=== PATIENT | male | born 1955 | race Caucasian/White ===

== ENCOUNTER → 2020-07-10 12:53 | Outpatient (BNVA) | payer MEDICARE, SELFPAY | PROVIDERS: PCP Nurse Practitioner Family; Visit Provider Surgery | DX: Z85.038 Personal history of other malignant neoplasm of large intestine (principal); Z90.49 Acquired absence of other specified parts of digestive tract; Z80.0 Family history of malignant neoplasm of digestive organs | CPT/HCPCS: 99214 ==

== ENCOUNTER → 2020-07-25 08:47 | Outpatient (BNVA) | payer MEDICARE, SELFPAY | PROVIDERS: PCP Nurse Practitioner Family; Referring Provider Nurse Practitioner Family; Visit Provider Psychiatry & Neurology Neurology | DX: G47.33 Obstructive sleep apnea (adult) (pediatric) (principal) | CPT/HCPCS: 99212; Q3014 ==

== ENCOUNTER → 2020-07-28 12:39 | Outpatient (BNVA) | payer MEDICARE, SELFPAY | PROVIDERS: PCP Nurse Practitioner Family; Referring Provider Nurse Practitioner Family; Visit Provider Nurse Practitioner Gerontology | DX: E11.65 Type 2 diabetes mellitus with hyperglycemia (principal); E11.42 Type 2 diabetes mellitus with diabetic polyneuropathy; Z79.4 Long term (current) use of insulin; I10 Essential (primary) hypertension; E78.5 Hyperlipidemia, unspecified | CPT/HCPCS: Q3014 ==

== ENCOUNTER → 2020-10-02 08:53 | Outpatient (BNVA) | payer MEDICARE, SELFPAY | PROVIDERS: PCP Nurse Practitioner Family; Visit Provider Nurse Practitioner Gerontology | DX: E11.42 Type 2 diabetes mellitus with diabetic polyneuropathy (principal); E11.65 Type 2 diabetes mellitus with hyperglycemia; Z79.4 Long term (current) use of insulin; I10 Essential (primary) hypertension; E78.5 Hyperlipidemia, unspecified | CPT/HCPCS: Q3014 ==

== ENCOUNTER → 2020-10-31 11:24 | Outpatient (BNV) | payer MEDICARE, SELFPAY | PROVIDERS: PCP Nurse Practitioner Family; Visit Provider Internal Medicine | DX: C18.2 Malignant neoplasm of ascending colon (principal); C78.7 Secondary malignant neoplasm of liver and intrahepatic bile duct | CPT/HCPCS: 99212; 99213; 99214; 99215; G2211 ==

== ENCOUNTER → 2020-11-29 10:38 | Outpatient (BNVA) | payer MEDICARE, SELFPAY | PROVIDERS: PCP Nurse Practitioner Family; Visit Provider Nurse Practitioner Gerontology | DX: E11.42 Type 2 diabetes mellitus with diabetic polyneuropathy (principal); E11.65 Type 2 diabetes mellitus with hyperglycemia; E78.5 Hyperlipidemia, unspecified; I10 Essential (primary) hypertension; Z79.4 Long term (current) use of insulin; Z71.3 Dietary counseling and surveillance | CPT/HCPCS: 82947; 99212 ==

== ENCOUNTER 2020-12-25 09:49 | Outpatient (REF) | payer MEDICARE, SELFPAY ==
[2020-12-25 11:16] LABS: MANUAL DIFF FLAG NO
[2020-12-25 11:42] LABS: Basophils Absolute Auto 0.1 X10*3/uL (0.0-0.2); Basophils Percent Auto 0.7 % (0-2); Eosinophils Absolute Auto 0.2 X10*3/uL (0.0-0.4); Hematocrit 48.5 % (42-52); Hemoglobin 16.6 g/dl (14.0-18.0); Imm Gran Abs Auto 0.04 X10*3/uL (0.00-0.03); Imm Gran Pct Auto 0.6 % (0.0-0.4); Lymphocytes Absolute Auto 1.3 X10*3/uL (1.2-4.9); Lymphocytes Percent Auto 19.5 % (20-40); Mean Corpuscular HGB Conc 34.2 g/dl (31.0-36.0); Mean Corpuscular Hemoglobin 29.3 pg (27.0-33.0); Mean Corpuscular Volume 85.7 fL (80-98); Mean Platelet Volume 12.5 fL (9.4-12.4); Monocytes Absolute Auto 0.5 X10*3/uL (0.1-1.2); Monocytes Percent Auto 7.2 % (2-11); Neutrophils Absolute Auto 4.6 X10*3/uL (2.0-8.3); Platelet Count 155 X10*3/uL (160-400); Red Blood Count 5.66 X10*6/uL (4.60-5.80); Red Cell Distribution Width 13.1 % (11.0-16.0); White Blood Count 6.7 X10*3/uL (4.8-10.8)
[2020-12-25 11:45] LABS: INTERNATIONAL NORM RATIO 0.9 (0.9-1.1); Prothrombin Time 10.9 SEC (10.8-13.0)
[2020-12-25 11:48] LABS: Partial Thromboplastin Time 32.1 SEC (24.1-38.0)
[2020-12-25 11:54] LABS: Alanine Aminotransferase 32 U/L (0-40); Albumin Level 4.3 g/dL (3.5-5.0); Alkaline Phosphatase 125 U/L (39-117); Anion Gap 17 (12-20); Aspartate Amino Transferase 25 U/L (5-37); Bilirubin Total 0.8 mg/dL (0.0-1.0); Blood Urea Nitrogen 13 mg/dL (9-16); Carbon Dioxide 21 mmol/L (22-29); Chloride 104 mmol/L (96-108); Cholesterol 207 mg/dL; Estimated Glomerular Filt Rate > 60; Glucose Fasting 188 mg/dL (60-99); HDL Cholesterol 45 mg/dL; LDL Cholesterol Calculated 139 mg/dl; Potassium 4.3 mmol/L (3.3-5.1); Sodium 138 mmol/L (135-145); Total Protein 6.7 g/dL (6.5-8.0); Triglycerides 117 mg/dL
[2020-12-25 12:13] LABS: Estimated Average Glucose 212 mg/dL
[2020-12-25 12:15] LABS: TSH reflex Free T4 1.85 uIU/mL (0.32-4.0)
[2020-12-25 12:25] LABS: Creatinine Urine 114.71 mg/dL; Microalbum/Creatinine Ratio Ur 229.2 ug/mg cr
== END 2020-12-25 09:50 | disposition home or self-care (01) ==
LOC: HO.HMGCLDS 09:49
PROVIDERS: Absent Provider Nurse Practitioner Gerontology; PCP Nurse Practitioner Family; Visit Provider Nurse Practitioner Family
DX: Z01.818 Encounter for other preprocedural examination (principal); Z12.5 Encounter for screening for malignant neoplasm of prostate; E11.65 Type 2 diabetes mellitus with hyperglycemia; E11.42 Type 2 diabetes mellitus with diabetic polyneuropathy; Z79.4 Long term (current) use of insulin
CPT/HCPCS: 36415; 80053; 80061; 82043; 83036; 84153; 84443; 85025; 85610; 85730

== ENCOUNTER → 2021-02-01 14:56 | Outpatient (REF) | payer MEDICARE, SELFPAY ==
--- NOTE | 2021-02-01 14:59 | CA_ITS ---
Transthoracic Echocardiogram Patient (Last, First, Middle): Navarro Frost, Gender: Male Date of : 1955 Age: 65 Procedure Date: 02/01/2021 Procedure Type: Transthoracic Echocardiogram Location: OP Height: 177.8 cm Weight: 92.99 kg BSA: 2.11 m2 Heart Rate: bpm BP: 122 / 80 mmHg Power Press Operator: VERONICA Gallo MD: Mauri Dixon [facility] Audit Specialist: Hunter Horne MD Symptoms: R01.1 - Cardiac murmur, unspecified Study Quality: Fair ECG Rhythm: Sinus Conclusions: - 1. Normal LV systolic function with impaired relaxation filling pattern 2. Fibrocalcific aortic valve changes noted with increased gradient suggestive of early mild aortic stenosis 3. Normal RV systolic pressure 4. No pericardial effusion Findings Left Ventricle Normal left ventricular size, thickness, and systolic function. The visually estimated ejection fraction is between 60-65%. Spectral Doppler is indicative of an impaired relaxation filling pattern. E/E prime ratio is between 8 and 15 consistent with indeterminate filling pressures. Right Ventricle Normal right ventricular cavity size and systolic function. Atria The left atrium is normal in size. There is no evidence of interatrial shunt. The right atrium is normal in size. Aortic Valve There is mild calcification of the aortic valve. There is mild thickening of the aortic valve. There is mild aortic valve stenosis. The mean gradient is 11 mmHg. The aortic valve area is 2.17 cm2. There is no aortic valve regurgitation. Mitral Valve There is mild anterior and posterior mitral leaflet thickening. There is mild mitral annular calcification. There is no mitral valve regurgitation. There is no mitral valve stenosis. Pulmonic Valve The pulmonic valve was not well visualized. Tricuspid Valve Likely normal tricuspid valve structure and function. There is trace tricuspid valve regurgitation. The right ventricular systolic pressure is normal. The right ventricular systolic pressure is 13 mmHg. Normal right atrial pressure. There is no evidence of pulmonary hypertension. Great Vessels All visible segments of the aorta are normal in size. The pulmonary artery was not well visualized. Venous The inferior vena cava is normal in size and collapses greater than 50% with inspiration. Pericardium/Pleural There is no evidence of pericardial effusion. Prior Study Comparison No significant change compared to prior study dated: 01/20/2019. Measurements 2D Linear Measurements IVSd: 0.99 0.6-0.9/0.6-1.0 cm LVIDd: 3.56 3.9-5.3/4.2-5.9 cm LVIDd Index: 1.69 2.4-3.2/2.2-3.1 cm/m2 LVIDs: 2.51 2.0-3.6 cm LVPWd: 0.96 0.7-1.1 cm Ao Root: 3.30 2.1-3.5 cm LA Diam: 3.30 2.7-3.8/3.0-4.0 cm LAIDs Index: 1.56 1.5-2.3 cm/m2 LV Mass: 127.72 67-162/88-224 g LV Mass Index: 60.53 43-95/49-115 g/m2 LVOT Diam: 2.10 3.0+(-)1.3 cm 2D Systolic Function EF 4C: 54.50 >55% EF 2C: 70.10 >55% EF BiP: 64.20 >55% Mitral Valve MV Pk E: 1.04 MV PK A: 1.42 MV Decel Time: 333.00 E/A: 0.70 E'Lateral: 6.31 E'Medial: 5.22 E/E' Med: 19.90 E/E' Lat: 16.50 PHT: 98.00 MVA PHT: 2.24 Decel Parker: 3.13 Aortic Valve AoV Pk Thierry: 2.14 AoV Mn Thierry: 1.57 AoV VTI: 0.45 AoV Pk Grad: 18.00 Aov Mn Grad: 11.00 SHAYY Cont.VTI: 2.17 LVOT LVOT Pk Thierry: 1.23 LVOT Mn Thierry: 0.94 LVOT VTI: 0.28 LVOT Pk Grad: 6.00 LVOT Mn Grad: 4.00 LVOT Diam: 2.10 LVOT Area: 3.46 Diastolic Function MV Pk E: 1.04 MV Pk A: 1.42 E/A: 0.70 E'Medial: 5.22 E/E' Med: 19.90 E' Laterial: 6.31 E/E' Lat: 16.50 Tricuspid Valve TR Pk Thierry: 1.62 TR Pk Grad: 10.00 RA Press: 3.00 RVSP: 13.00 Great Vessels Aorta Ao Root-2D: 3.30 2.0-3.7 cm Ao Asc: 3.50 2.1-3.4 cm Ao Arch: 3.40 Updated in Other Vendor System with Status of Final Hunter Horne MD electronically signed on 02/02/2021 3:11:00 PM with status of Final
== END ==
LOC: HO.CARD 14:56
PROVIDERS: Visit Provider Nurse Practitioner Family
DX: R01.1 Cardiac murmur, unspecified (principal); R94.31 Abnormal electrocardiogram [ECG] [EKG]
CPT/HCPCS: 93306

== ENCOUNTER → 2021-03-07 09:55 | Outpatient (BNVA) | payer MEDICARE, SELFPAY | PROVIDERS: PCP Nurse Practitioner Family; Visit Provider Nurse Practitioner Gerontology | DX: E11.65 Type 2 diabetes mellitus with hyperglycemia (principal); E11.42 Type 2 diabetes mellitus with diabetic polyneuropathy; E11.29 Type 2 diabetes mellitus with other diabetic kidney complication; R80.9 Proteinuria, unspecified; I12.9 Hypertensive chronic kidney disease with stage 1 through stage 4 chronic kidney disease, or unspecified chronic kidney disease; N18.9 Chronic kidney disease, unspecified; E78.5 Hyperlipidemia, unspecified; N52.9 Male erectile dysfunction, unspecified; E66.9 Obesity, unspecified; Z79.4 Long term (current) use of insulin | CPT/HCPCS: 82947; Q3014 ==

== ENCOUNTER 2021-04-05 11:14 | Outpatient (REF) | payer MEDICARE, SELFPAY ==
[2021-04-05 14:10] LABS: Alanine Aminotransferase 20 U/L (0-40); Albumin Level 4.2 g/dL (3.5-5.0); Alkaline Phosphatase 128 U/L (39-117); Anion Gap 12 (12-20); Aspartate Amino Transferase 20 U/L (5-37); Bilirubin Direct 0.4 mg/dL (0.0-0.5); Bilirubin Total 1.1 mg/dL (0.0-1.0); Blood Urea Nitrogen 20 mg/dL (9-16); Calcium 9.6 mg/dL (8.4-10.2); Carbon Dioxide 26 mmol/L (22-29); Chloride 106 mmol/L (96-108); Cholesterol 184 mg/dL; Estimated Glomerular Filt Rate > 60; Gamma Glutamyl Transpeptidase 148 U/L (11-51); Glucose Fasting 191 mg/dL (60-99); HDL Cholesterol 38 mg/dL; LDL Cholesterol Calculated 121 mg/dl; Potassium 4.2 mmol/L (3.3-5.1); Sodium 140 mmol/L (135-145); Total Protein 6.7 g/dL (6.5-8.0); Triglycerides 126 mg/dL
[2021-04-05 14:24] LABS: Prostate Specific Antigen Scr 2.26 ng/mL (<0.05-4.0); TSH reflex Free T4 0.75 uIU/mL (0.32-4.0)
[2021-04-06 08:20] LABS: HBS Num1 0.15 mIU/mL (0-7.99); ~Hepatitis B Surface Antibody NONREACTIVE (Nonreactive)
[2021-04-07 06:12] LABS: Rubeola IgG (Measles) >300.00 AU/mL
[2021-04-07 19:16] LABS: TS Negative Control Passed; TS Panel A 0; TS Panel B 0; TS Positive Control Passed; TSpotTB Negative (SeeBelow)
== END 2021-04-05 11:15 | disposition home or self-care (01) ==
LOC: HO.HMGCLDS 11:14
PROVIDERS: PCP Nurse Practitioner Family; Visit Provider Nurse Practitioner Family
DX: Z00.00 Encounter for general adult medical examination without abnormal findings (principal); Z12.5 Encounter for screening for malignant neoplasm of prostate; Z11.1 Encounter for screening for respiratory tuberculosis; Z28.3 Underimmunization status; R74.8 Abnormal levels of other serum enzymes
CPT/HCPCS: 36415; 80053; 80061; 80076; 82248; 82977; 84153; 84443; 86481; 86706; 86735; 86762; 86765; 86787

== ENCOUNTER → 2021-04-18 08:07 | Outpatient (BNVA) | payer MEDICARE, SELFPAY | PROVIDERS: PCP Nurse Practitioner Family; Visit Provider Nurse Practitioner Family | DX: Z12.11 Encounter for screening for malignant neoplasm of colon (principal); K59.01 Slow transit constipation; K21.9 Gastro-esophageal reflux disease without esophagitis; R74.8 Abnormal levels of other serum enzymes | CPT/HCPCS: 99202 ==

== ENCOUNTER 2021-04-20 11:36 | Outpatient (REF) | payer MEDICARE, SELFPAY ==
[2021-04-20 14:06] LABS: Estimated Average Glucose 223 mg/dL; Hemoglobin A1c % 9.4 %
[2021-04-20 14:11] LABS: C Reactive Protein 0.14 mg/dL (< or = 0.50); Lipase 14 U/L (8-78)
[2021-04-20 14:32] LABS: Ferritin 51 ng/mL (20-250)
[2021-04-23 12:16] LABS: Alpha Fetoprotein 0.6 ng/mL (<6.1)
[2021-04-23 20:27] LABS: Ceruloplasmin 27 mg/dL (18-36)
[2021-04-27 11:31] LABS: Smooth Muscle Antibody <20 U (<20)
[2021-04-27 16:02] LABS: Mitochondrial Antibodies NEGATIVE (NEGATIVE)
== END 2021-04-20 11:37 | disposition home or self-care (01) ==
LOC: HO.HMGCLDS 11:36
PROVIDERS: Nurse Practitioner Gerontology; PCP Nurse Practitioner Family; Visit Provider Nurse Practitioner Family
DX: R19.7 Diarrhea, unspecified (principal); R79.89 Other specified abnormal findings of blood chemistry; R74.8 Abnormal levels of other serum enzymes; K58.9 Irritable bowel syndrome, unspecified; E11.65 Type 2 diabetes mellitus with hyperglycemia; Z79.4 Long term (current) use of insulin
CPT/HCPCS: 36415; 82105; 82390; 82728; 83036; 83690; 86140; 86255; 86256

== ENCOUNTER 2021-06-05 09:57 | Outpatient (REF) | payer MEDICARE, SELFPAY ==
--- NOTE | ~2021-06-05 | US_ITS ---
US/US abdomen comp w elastography IMPRESSION: Cholelithiasis without evidence of acute cholecystitis. Fatty infiltration of the liver. Liver elastography: Although measurements appear to rule out compensated advanced chronic liver disease, there is statistical variability of the sampling which decreases accuracy. REFERENCE: Society of Radiologists in Ultrasound Liver Stiffness Thresholds (2020): LIVER STIFFNESS THRESHOLDS: *Liver Stiffness equal or less than 1.3 m/s: High probability of being normal. *Liver Stiffness less than 1.7 m/s: In the absence of other known clinical signs, rules out compensated advanced chronic liver disease. *Liver Stiffness 1.7-2.1 m/s: Suggestive of compensated advanced chronic liver disease but need further test for confirmation. *Liver Stiffness over 2.1 m/s: Rules in compensated advanced chronic liver disease. *Liver Stiffness over 2.4 m/s: Suggestive of clinically significant portal hypertension. QUALITY OF DATA SET: *IQR/Median value equal or less than 0.15 implies a quality data set. *IQR/Median value over 0.15 implies a poor quality data set. SIGNIFICANT CHANGE FROM PRIOR EXAM: Significant change if liver stiffness measurement is 10% or greater from prior exam. OTHER CONSIDERATIONS: The stage of liver fibrosis may be overestimated in the setting of acute hepatitis, liver inflammation, elevated liver function tests, hepatic vascular congestion, obstructive cholestasis, non-fasting state, and infiltrative diseases such as amyloidosis and lymphoma. In some patients with NAFLD, the liver stiffness thresholds for compensated advanced chronic liver disease may be lower. In causes other than viral hepatitis and NAFLD, liver stiffness thresholds are not well established. EXAMINATION: US COMPLETE ABDOMEN WITH LIVER ELASTOGRAPHY CLINICAL INFORMATION: Abnormal blood chemistry. History of colon cancer. COMPARISON: CT scan of November 11, 2019 TECHNIQUE: Real-time imaging of the abdominal viscera. Noninvasive ultrasound liver fibrosis assessment is performed using Torito ElastPQ point quantification shear wave elastography (pSWE) with a C5-2 MHz transducer. Multiple elastography samples are obtained. FINDINGS: PANCREAS: Mostly obscured by overlying bowel gas. Visualized portions unremarkable. ABDOMINAL AORTA: The proximal, middle, and distal aortic segments are normal in caliber. INFERIOR VENA CAVA: Obscured by overlying bowel gas. LIVER: There is diffuse increased echogenicity of the liver consistent with fatty infiltration or hepatocellular disease of other etiology. No focal mass identified and no intrahepatic bile duct dilatation is seen. The right lobe measures 15.4 cm in length. The left lobe measures 8.0 cm in length. Portal flow is hepatopedal Shear wave liver elastography median stiffness is 1.41 m/s (reference: normal median stiffness is 1.3 m/s or less). IQR/median stiffness to assess sampling precision is 0.21 (reference: good quality data set is IQR/median stiffness of 0.15 or less). GALLBLADDER: Cholelithiasis is present without evidence of acute cholecystitis. COMMON BILE DUCT: Normal in caliber measuring 0.3 cm in diameter. RIGHT KIDNEY: Normal. No hydronephrosis. No renal calculi or focal parenchymal lesions. The kidney measures 11.5 cm in maximum dimension. LEFT KIDNEY: Normal. No hydronephrosis. No renal calculi or focal parenchymal lesions. The kidney measures 12.5 cm in maximum dimension. SPLEEN: Normal. The spleen measures 12.3 cm in maximum dimension. FREE FLUID: None.
== END 2021-06-05 09:58 | disposition home or self-care (01) ==
LOC: HO.US 09:57
PROVIDERS: Visit Provider Nurse Practitioner Family
DX: R79.89 Other specified abnormal findings of blood chemistry (principal); E11.42 Type 2 diabetes mellitus with diabetic polyneuropathy; E11.29 Type 2 diabetes mellitus with other diabetic kidney complication; R80.9 Proteinuria, unspecified; I10 Essential (primary) hypertension; E78.5 Hyperlipidemia, unspecified; R74.8 Abnormal levels of other serum enzymes; Z79.4 Long term (current) use of insulin
CPT/HCPCS: 76705; 76981; 82947; 99212

== ENCOUNTER → 2021-06-19 13:42 | Outpatient (BNVA) | payer MEDICARE, SELFPAY | PROVIDERS: Referring Provider Nurse Practitioner Family; Visit Provider Nurse Practitioner Family | DX: K21.9 Gastro-esophageal reflux disease without esophagitis (principal); K59.01 Slow transit constipation; R74.8 Abnormal levels of other serum enzymes | CPT/HCPCS: 99212 ==

== ENCOUNTER → 2021-08-17 13:03 | Outpatient (BNVA) | payer MEDICARE, SELFPAY | PROVIDERS: Referring Provider Nurse Practitioner Family; Visit Provider Nurse Practitioner Family | DX: Z12.11 Encounter for screening for malignant neoplasm of colon (principal); K58.1 Irritable bowel syndrome with constipation; K59.04 Chronic idiopathic constipation; Z85.038 Personal history of other malignant neoplasm of large intestine; R74.8 Abnormal levels of other serum enzymes | CPT/HCPCS: 99212 ==

== ENCOUNTER → 2021-09-21 08:40 | Outpatient (BNVA) | payer MEDICARE, SELFPAY | PROVIDERS: PCP Nurse Practitioner Family; Visit Provider Nurse Practitioner Gerontology | CPT/HCPCS: Q3014 ==

== ENCOUNTER 2021-10-30 08:53 | Outpatient (REF) | payer MEDICARE, SELFPAY ==
[2021-10-30 11:53] LABS: Appearance Urine CLEAR; Color Urine YELLOW; Glucose Urine UA >=1000 MG/DL (NEG); Leukocyte Esterase Urine NEG (NEG); Nitrite Urine NEG (NEG); Urine Blood NEG (NEG); Urine Ketones NEG (NEG); Urine Protein NEG (NEG-TRACE)
[2021-10-30 12:09] LABS: Alanine Aminotransferase 25 U/L (0-40); Albumin Level 4.3 g/dL (3.5-5.0); Alkaline Phosphatase 106 U/L (39-117); Anion Gap 12 (12-20); Aspartate Amino Transferase 23 U/L (5-37); Bilirubin Total 0.9 mg/dL (0.0-1.0); Blood Urea Nitrogen 21 mg/dL (9-16); Calcium 9.1 mg/dL (8.4-10.2); Carbon Dioxide 27 mmol/L (22-29); Chloride 107 mmol/L (96-108); Cholesterol 223 mg/dL; Estimated Glomerular Filt Rate > 60; Glucose Fasting 120 mg/dL (60-99); HDL Cholesterol 42 mg/dL; LDL Cholesterol Calculated 156 mg/dl; Potassium 4.7 mmol/L (3.3-5.1); Sodium 141 mmol/L (135-145); Triglycerides 127 mg/dL
[2021-10-30 12:12] LABS: RBC Urine 0-2 /HPF (0); WBC Urine 0 /HPF (0-4)
[2021-10-30 12:16] LABS: Prostate Specific Antigen Scr 2.35 ng/mL (<0.05-4.0); TSH reflex Free T4 2.26 uIU/mL (0.32-4.0)
[2021-10-30 12:22] LABS: Estimated Average Glucose 200 mg/dL; Hemoglobin A1c % 8.6 %
[2021-11-04 13:27] LABS: Alk.Phos Iso. Macrohepatic 0 % (<=0); Alk.Phos Isoenzymes Bone 44 % (28-66); Alk.Phos Isoenzymes Intest 0 % (1-24); Alk.Phos Isoenzymes Liver 56 % (25-69); Alk.Phos Isoenzymes Placental 0 % (<=0); Alk.Phos Isoenzymes Total 101 U/L (35-144)
== END 2021-10-30 08:54 | disposition home or self-care (01) ==
LOC: HO.HMGCLDS 08:53
PROVIDERS: Absent Provider Nurse Practitioner Gerontology; PCP Nurse Practitioner Family; Visit Provider Nurse Practitioner Family
DX: Z12.5 Encounter for screening for malignant neoplasm of prostate (principal); I10 Essential (primary) hypertension; R74.8 Abnormal levels of other serum enzymes; E11.29 Type 2 diabetes mellitus with other diabetic kidney complication
CPT/HCPCS: 36415; 80053; 80061; 81001; 83036; 84080; 84153; 84443

== ENCOUNTER 2021-12-04 09:13 | Day surgery (SDC) | payer MEDICARE, SELFPAY ==
--- NOTE | 2021-11-09 09:36 | P.CONAN_ITS ---
Documented by User: Glenny Landin NP 11/09/21 09:48 HPI - Anesthesia Eval Consult details Narrative: 66yo M for Colonoscopy PMFSH Active Problems Active Problems: All Active Problems (Updated 11/06/21 @ 09:33 by Leigha Tolbert MD) Skin lesion (Acute) Obstructive sleep apnea (Acute) Physical exam (Acute) Screening PSA (prostate specific antigen) (Acute) Pre-op evaluation (Acute) Murmur (Acute) Abnormal EKG (Acute) Elevated alkaline phosphatase level (Acute) Physical exam (Acute) Screening PSA (prostate specific antigen) (Acute) Restless leg (Acute) Immunizations incomplete (Acute) Screening for tuberculosis (Acute) Elevated alkaline phosphatase level (Acute) Proteinuria (Acute) Type 2 diabetes mellitus with other diabetic kidney complication (Acute) Type 2 diabetes mellitus with hyperglycemia, with long-term current use of insulin (Acute) Type 2 diabetes mellitus with diabetic polyneuropathy (Acute) Hypertension (Acute) Dyslipidemia (Acute) Obesity (BMI 30.0-34.9) (Acute) Family history of pancreatic cancer (Acute) History of colon cancer (Chronic) Neuropathy (Acute) Diabetes mellitus (Acute) Past Medical History Medical History Cataract CKD (chronic kidney disease) stage 2, GFR 60-89 ml/min Colon cancer Diabetes mellitus Dyslipidemia Erectile dysfunction Family history of pancreatic cancer Fuchs' corneal dystrophy History of colon cancer Hypertension Hypertensive nephrosclerosis Neuropathy Obesity (BMI 30.0-34.9) Persistent proteinuria Proteinuria RLS (restless legs syndrome) Type 2 diabetes mellitus with diabetic polyneuropathy Type 2 diabetes mellitus with hyperglycemia, with long-term current use of insulin Type 2 diabetes mellitus with other diabetic kidney complication Xerosis cutis Family History Family History Mother History of pancreatic cancer Father No problems noted. Brother Diabetes Maternal Grandmother Diabetes Surgical History Surgical History History of colon resection (~04/20/19) History of colonoscopy (~03/15/19) Hx of cornea transplant Hx of left cataract extraction Social History Social History Household Members: None Housing: Condominium Are you a primary team primary care physician to a significant other at home: No Do you presently have visiting nurse or other home services: No Alcohol intake: never Patient Tobacco Use Status: Never used Tobacco e-Cigarette/Vaping Use: Never Used Second Hand Smoke Exposure: No Are you DNR?: No Advance Directives: No Advance Directives Information Provided: Yes service: No Current occupational status: retired Meds Allergies Allergy/AdvReac Type Severity Reaction Status Date / Time No Known Allergies Allergy Verified 11/06/21 09:39 [No Known Allergies*] Home Medications Medication Instructions Recorded Confirmed Last Taken Type pramipexole 0.5 mg tablet (Mirapex) 0.5 mg PO BEDTIME 07/10/20 11/06/21 Unknown History blood sugar diagnostic #10 ea 07/28/20 11/06/21 Unknown History aspirin 81 mg tablet,delayed 81 mg PO DAILY 05/01/21 11/06/21 Unknown History release calcium carbonate 600 mg-vitamin 1 tab PO DAILY 05/01/21 11/06/21 Unknown History D3 5 mcg (200 unit) tablet magnesium 500 mg tablet 15 mg PO DAILY 05/01/21 11/06/21 Unknown History multivitamin 1 tab PO DAILY 05/01/21 11/06/21 Unknown History omega-3 fatty acids 1,000 mg PO DAILY 05/01/21 11/06/21 Unknown History omeprazole 20 mg capsule,delayed 20 mg PO NEEDED 06/19/21 11/06/21 Unknown Hi story release blood sugar diagnostic (OneTouch 09/21/21 11/06/21 Unknown History Ultra Test) blood-glucose meter (OneTouch 09/21/21 11/06/21 Unknown History Ultra2 Meter) cinnamon bark 500 mg capsule 500 mg PO DAILY 11/06/21 11/06/21 Unknown History (Cinnamon) pioglitazone 30 mg tablet (Actos) 30 mg PO DAILY 11/06/21 11/06/21 Unknown History Exam Exam Date and Time: November 09, 2021 0936 Pertinent Lab Results Pertinent Lab Results: Laboratory Tests 10/30/21 11/06/21 09:00 10:31 WBC 5.5 Hgb 17.7 Hct 52.7 H Plt Count 138 L Sodium 141 Potassium 4.7 Chloride 107 Carbon Dioxide 27 BUN 21 H Creatinine 1.15 Narrative Narrative: ECHO 01/2021 Conclusions: - 1. Normal LV systolic function with impaired relaxation filling pattern? 2. Fibrocalcific aortic valve changes noted with increased ? ? ? gradient suggestive of early mild aortic stenosis? 3. Normal RV systolic pressure ? 4. No pericardial effusion ?? 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 No changes from previous Assessment and Plan Assessment Anesthesia Assessment: Chart Reviewed Documented by User: Sindhu Valerio MD 12/04/21 10:30 [facility] Past Medical History Medical History Cataract CKD (chronic kidney disease) stage 2, GFR 60-89 ml/min Colon cancer Diabetes mellitus Dyslipidemia Erectile dysfunction Family history of pancreatic cancer Fuchs' corneal dystrophy History of colon cancer Hypertension Hypertensive nephrosclerosis Neuropathy Obesity (BMI 30.0-34.9) Persistent proteinuria Proteinuria RLS (restless legs syndrome) Type 2 diabetes mellitus with diabetic polyneuropathy Type 2 diabetes mellitus with hyperglycemia, with long-term current use of insulin Type 2 diabetes mellitus with other diabetic kidney complication Xerosis cutis Functional capacity: independent ambulation Family History Family History Mother History of pancreatic cancer Father No problems noted. Brother Diabetes Maternal Grandmother Diabetes Family history of problems with anesthesia: No Surgical History Surgical History History of colon resection (~04/20/19) History of colonoscopy (~03/15/19) Hx of cornea transplant Hx of left cataract extraction Social History Social History Household Members: None Housing: [facility] Are you a primary team primary care physician to a significant other at home: No Do you presently have visiting nurse or other home services: No Alcohol intake: never Patient Tobacco Use Status: Never used Tobacco e-Cigarette/Vaping Use: Never Used Second Hand Smoke Exposure: No Are you DNR?: No Advance Directives: No Advance Directives Information Provided: Yes service: No Current occupational status: retired Meds Allergies Allergy/AdvReac Type Severity Reaction Status Date / Time No Known Allergies Allergy Verified 11/06/21 09:39 [No Known Allergies*] Home Medications Medication Instructions Recorded Confirmed Last Taken Type pramipexole 0.5 mg tablet (Mirapex) 0.5 mg PO BEDTIME 07/10/20 11/06/21 Unknown History blood sugar diagnostic #10 ea 07/28/20 11/06/21 Unknown History aspirin 81 mg tablet,delayed 81 mg PO DAILY 05/01/21 11/06/21 Unknown History release calcium carbonate 600 mg-vitamin 1 tab PO DAILY 05/01/21 11/06/21 Unknown History D3 5 mcg (200 unit) tablet magnesium 500 mg tablet 15 mg PO DAILY 05/01/21 11/06/21 Unknown History multivitamin 1 tab PO DAILY 05/01/21 11/06/21 Unknown History omega-3 fatty acids 1,000 mg PO DAILY 05/01/21 11/06/21 Unknown History omeprazole 20 mg capsule,delayed 20 mg PO NEEDED 06/19/21 11/06/21 Unknown History release blood sugar diagnostic (OneTouch 09/21/21 11/06/21 Unknown History Ultra Test) blood-glucose meter (OneTouch 09/21/21 11/06/21 Unknown History Ultra2 Meter) cinnamon bark 500 mg capsule 500 mg PO DAILY 11/06/21 11/06/21 Unknown History (Cinnamon) pioglitazone 30 mg tablet (Actos) 30 mg PO DAILY 11/06/21 11/06/21 Unknown History Exam Airway Mallampati Class: III TM Dist: >3cm Neck ROM: Full Heart: RRR Lungs: CTA Assessment and Plan Final Anesthetic Review Family History of Problems with Anesthesia: No ASA Class: III Final Preanesthetic Review: No Changes in Pt Med Stat, Meds/Allgs Chart Reviewed, Consent Obtained/Reviewed and Anes Risks/Benef Reviewed Patient Risk: Intermediate Procedure Risk: Low Anesthetic Plan Anesthetic Plan: MAC: Disposition: Standard PACU
[2021-11-29 16:54] VITALS: BMI 29.4
[2021-12-04 09:33] VITALS: BP 127/105; PULSE 81; RESP 17; TEMP 36.1; O2SAT 96
[2021-12-04 09:39] LABS: Glucose, Whole Blood 80 mg/dL (60-115)
[2021-12-04] MEDS: Lactated Ringers 1,000 ML 100 ML IVCONT (09:54)
--- NOTE | 2021-12-04 10:01 | MHC.SHP ---
Pre-Procedural Eval Section A Date of Service: 12/04/21 Section B Chief Complaint: screening Details of Present Illness: hx of colon cancer, Relevant Family History (Specify if Yes): No Relevant Social History: None Present Medications: see Short Stay Collaborative assessment Medical History: Significant History (Cataract CKD (chronic kidney disease) stage 2, GFR 60-89 ml/min Colon cancer Diabetes mellitus Dyslipidemia Erectile dysfunction Family history of pancreatic cancer Fuchs' corneal dystrophy History of colon cancer Hypertension Hypertensive nephrosclerosis Neuropathy Obesity (BMI 30.0-34.9) Persisten) History of Previous Operations: Relevant previous surgery/procedure and date(s) (History of colon resection (~04/20/19) History of colonoscopy (~03/15/19) Hx of cornea transplant Hx of left cataract extraction) Allergies: Allergies Allergy/AdvReac Type Severity Reaction Status Date / Time No Known Allergies Allergy Verified 11/06/21 09:39 [No Known Allergies*] Review of Systems Sugical H&P ROS: Negative: Constitution, Cardiovascular, Respiratory, Neurological, Psychiatric, Hem-Onc, Allergic/Immunologic, Gastrointestinal, Genitourinary, Musculoskeletal, Integumentary, Endocrine and Eyes/Ears/Nose/Throat Exam Surgical H&P Exam: Normal: HEENT, Normal: Heart, Normal: Lungs, Normal: Extremities, Normal: Abdomen, Normal: Skin and Normal: Neurological Plan Diagnosis/Plan: Unchanged I have reviewed the history and physical and performed a pertinent physical examination on my patient. No changes have occurred unless specified.
--- NOTE | 2021-12-04 10:04 | P.BOP_ITS ---
Brief Operative Note Date of Service: 12/04/21 Pre-op diagnosis: hx of colon cancer Post-op diagnosis: same Procedure: see op note Surgeon: Ronen Kaiser MD Anesthesia: MAC Was an Joint Cutter Machine used for this Procedure?: No Estimated blood loss (mL): 0 Condition: stable Disposition: PACU
--- NOTE | 2021-12-04 10:04 | P.OP_ITS ---
Operative Note Operative Note Date of Service: 12/04/21 Narrative: Operative Information Procedure Description: Colonoscopy COLONOSCOPY Instrument: Olympus variable stiffness adult scope 190L Colonoscopy Monitoring: Vital signs and clinical assessment, continuous EKG monitoring, Pulse oximetry, Carbon Dioxide monitoring and blood pressure monitoring were done throughout the procedure. Procedure: The patient was placed in the left lateral decubitis position and pre-procedure medications were administered. After a digital rectal examination of the ano-rectum, the video colonoscope was inserted into the rectum and advanced through the colon to the cecum/TI. The colonoscope was slowly withdrawn in a retrograde panoramic fashion and the colon mucosa was carefully examined including a retroflexed view of the rectum. Findings and interventions are described below. Procedure Difficulty: [] Findings: Anasotmosis not reached due to poor prep Transverse Colon -normal Descending Colon:normal Sigmoid Colon: x 3 sessile polyps noted, two were removed with cold snare and were 8-10 mm. Another one was removed with forceps and was 5-6 mm Rectum: Retroflexion with small internal hemorrhoids, grade I, 10 mm sessile polyp removed with cold snare Anorectum - normal Colon preparation: [place] Bowel Preparation Scale Right colon; n/a Transverse colon: 0 Left colon; 1 (0 = Unprepared colon segment with mucosa not seen due to solid stool that cannot be cleared. 1 = Portion of mucosa of the colon segment seen, but other areas of the colon segment not well seen due to staining, residual stool and/or opaque liquid. 2 = Minor amount of residual staining, small fragments of stool and/or opaque liquid, but mucosa of colon segment seen well. 3 = Entire mucosa of colon segment seen well with no residual staining, small fragments of stool or opaque liquid) Impression and Post Procedure Diagnosis: incomplete colonoscopy internal hemorrhoids polyps Plan: High fiber diet leaflet Avoid straining at stool, epsom salts and sitz bath, anusol supps or cream Repeat Colonoscopy in 2-3 months, review prep instructions for next time Above findings were reviewed with the patient and relevant handouts were provided if indicated.
[2021-12-04 10:46] VITALS: BP 97/36; PULSE 62; RESP 16; TEMP 36.3
[2021-12-04 10:59] VITALS: BP 97/46; PULSE 65; RESP 16; TEMP 36.5
[2021-12-04 11:08] VITALS: BP 104/56; PULSE 63; RESP 16
--- NOTE | 2021-12-04 15:12 | HO.POSTANES ---
Post Anesthesia Evaluation Post Anesthesia Evaluation Vital Signs: Vital Signs Temp Pulse Resp BP Pulse Ox 12/04/21 11:08 63 16 104/56 L 12/04/21 10:59 97.7 F 65 16 97/46 L 12/04/21 10:46 97.4 F 62 16 97/36 L 12/04/21 09:33 97 F 81 17 127/105 H 96 Anesthesia: Monitored Mental Status: Awake Pain Control: Satisfactory Nausea/Vomiting: None Hydration: Adequate Anesthesia-Related Issues: No Anes. Related Issues
== END 2021-12-04 13:00 | disposition home or self-care (01) ==
PROVIDERS: PCP Nurse Practitioner Family; Visit Provider Internal Medicine Gastroenterology
PROC: 0DJD8ZZ Inspection of Lower Intestinal Tract, Via Natural or Artificial Opening Endoscopic (ICD-10-PCS; CPT 45378; principal; 2021-12-04 10:20)
DX: Z12.11 Encounter for screening for malignant neoplasm of colon (principal); Z85.038 Personal history of other malignant neoplasm of large intestine; Z98.0 Intestinal bypass and anastomosis status; Z90.49 Acquired absence of other specified parts of digestive tract; K63.5 Polyp of colon; K62.1 Rectal polyp; K64.0 First degree hemorrhoids; E11.65 Type 2 diabetes mellitus with hyperglycemia; E11.42 Type 2 diabetes mellitus with diabetic polyneuropathy; E11.22 Type 2 diabetes mellitus with diabetic chronic kidney disease; I12.9 Hypertensive chronic kidney disease with stage 1 through stage 4 chronic kidney disease, or unspecified chronic kidney disease; N18.2 Chronic kidney disease, stage 2 (mild); Z79.4 Long term (current) use of insulin; G47.33 Obstructive sleep apnea (adult) (pediatric); Z99.89 Dependence on other enabling machines and devices; Z79.82 Long term (current) use of aspirin; Z79.899 Other long term (current) drug therapy
CPT/HCPCS: 45385; 45380; 82947; 88305

== ENCOUNTER → 2021-12-18 12:12 | Outpatient (BNVA) | payer MEDICARE, SELFPAY | PROVIDERS: PCP Nurse Practitioner Family; Referring Provider Nurse Practitioner Family; Visit Provider Nurse Practitioner Family | DX: Z12.11 Encounter for screening for malignant neoplasm of colon (principal); Z85.038 Personal history of other malignant neoplasm of large intestine | CPT/HCPCS: 99212 ==

== ENCOUNTER → 2021-12-27 13:34 | Outpatient (BNVA) | payer MEDICARE, SELFPAY | PROVIDERS: PCP Nurse Practitioner Family; Visit Provider Nurse Practitioner Gerontology | DX: E11.42 Type 2 diabetes mellitus with diabetic polyneuropathy (principal); E11.65 Type 2 diabetes mellitus with hyperglycemia; E11.29 Type 2 diabetes mellitus with other diabetic kidney complication; E78.5 Hyperlipidemia, unspecified; I10 Essential (primary) hypertension; R80.9 Proteinuria, unspecified; Z79.4 Long term (current) use of insulin | CPT/HCPCS: 82947; 99212 ==

== ENCOUNTER 2022-01-20 09:44 | Inpatient (IN) | payer MEDICARE, SELFPAY ==
[2022-01-20] VITALS (7 sets, daily range): BP systolic 135–211; BP diastolic 64–100; PULSE 63–77; RESP 13–19; TEMP 36.6–37.1; O2SAT 93–99; BMI 28.7
--- NOTE | ~2022-01-20 | MR_ITS ---
MR BRAIN WITHOUT AND WITH CONTRAST CLINICAL INFORMATION: Ataxia with history of colon cancer. Rule out brain lesion versus CVA. COMPARISON: CT head 01/20/2022. TECHNIQUE: Multiplanar, multisequence MRI of the brain was obtained before and after the intravenous administration of 10 mL of Gadavist. FINDINGS: There is a 1 cm acute infarct within the left vicki. No additional acute infarcts intracranially. No pathologic enhancement intracranially. Developmental venous anomaly within the inferior left parietal lobe posteriorly. There is global cerebral volume loss and there is mild chronic microangiopathy. Chronic lacunar infarcts within the right cerebellum. Arachnoid granulation within the left parietal bone posteriorly containing a small portion of the posterior left parietal lobe. There is no hydrocephalus, extra-axial surface collection, or herniation. The major flow voids at the skull base are preserved. There is no intracranial hemorrhage on the gradient recalled echo acquisition. The midline structures are normal. The cerebellar tonsils are normally positioned. The craniocervical junction is normal. Osseous marrow signal intensity is homogenous. The visualized soft tissues are unremarkable. The left frontal sinus is opacified. MR/MR head/brain wo/w con IMPRESSION: - There is a 1 cm acute infarct within the left vicki. No mass effect and no hemorrhagic transformation. - There is global cerebral volume loss and there is mild chronic microangiopathy. Chronic lacunar infarct within the right cerebellum.
--- NOTE | ~2022-01-20 | XR_ITS ---
EXAMINATION: XR CHEST CLINICAL INFORMATION: Weakness COMPARISON: Chest x-ray on 11/03/2019 TECHNIQUE: 2 views of the chest were obtained. FINDINGS: No significant abnormality is noted involving the heart, lungs, mediastinum, bony thorax or soft tissues. XR/XR chest 2V IMPRESSION: Unremarkable examination.
--- NOTE | ~2022-01-20 | CT_ITS ---
EXAMINATION: CT HEAD WITHOUT CONTRAST CLINICAL INFORMATION: Lower extremity weakness COMPARISON: None TECHNIQUE: Contiguous axial imaging was performed from the skull base to vertex without intravenous administration of contrast. This CT examination was performed using dose optimization techniques as appropriate, variously including the following: *Automated exposure control *Adjustment of mA and/or kV according to patient size (this includes techniques or standardized protocols for targeted exams where dose is matched to indication/reason for exam; i.e. extremities or head) *Use of iterative reconstruction technique DLP: 776 mGy-cm FINDINGS: There is no evidence of acute intracranial hemorrhage or edematous territorial infarction. No abnormal mass effect or midline shift is seen. Barnett to white matter differentiation is well preserved. No extra-axial fluid collections are identified. Commensurate prominence of the ventricles and sulci is compatible with generalized parenchymal volume loss. There is no abnormal attenuation within the brain parenchyma. There is a focus of bony lucency/endosteal scalloping and cortical thinning in the left occipital region. There are additional foci of endosteal scalloping/lucencies suspected in the skull apex, for example seen on image 6:10, and the corresponding sagittal and coronal reconstructions. These of indeterminate etiology. Bilateral maxillary, ethmoid sinus mucosal thickening. Left frontal sinus opacification. Mastoid air cells are well-aerated. CT/CT head/brain wo con IMPRESSION: 1. No CT evidence of acute intracranial hemorrhage or edematous territorial infarction. 2. Foci of bony lucencies/endosteal scalloping of the skull, detailed above. This is of indeterminate etiology. Correlate with clinical history. Differential consideration include multiple myeloma. Further workup as clinically warranted. 3. Sinus disease as detailed above.
--- NOTE | 2022-01-20 10:02 | ECG_ITS ---
Test Reason : IRREGULAR HEART Blood Pressure : / mmHG Vent. Rate : 063 BPM Atrial Rate : 063 BPM P-R Int : 154 ms QRS Dur : 064 ms QT Int : 418 ms P-R-T Axes : 043 -26 029 degrees QTc Int : 427 ms Sinus rhythm with Premature atrial complexes Septal infarct , age undetermined Inferior infarct (cited on or before 06-APR-2019) Abnormal ECG When compared with ECG of 06-APR-2019 14:19, Premature atrial complexes are now Present Vent. rate has decreased BY 31 BPM Septal infarct is now Present Referred By: Generic ED Physician Electronically Signed By:ALVAREZ WHIPPLE MD
--- NOTE | 2022-01-20 10:14 | ED_ITS ---
HPI - General Adult General Chief complaint: General Medical Stated complaint: DIFF WALKING,WEAKNESS S/P BOOSTER X'S 5 DAYS Time Seen by Provider: 01/20/22 09:49 Source: patient and EMS Mode of arrival: EMS Limitations: no limitations History of Present Illness HPI narrative: 66 yo male with history of IDDM, diabetic neuropathy, high cholesterol, hypertension here with reports of bilateral lower extremity weakness for the last 5 days. Patient tells me he received a booster (NOMERMAIL.RU) on friday afternoon. Several hours later he started to feel like his lower legs were weak. This has continued over the last few days and he has had difficulty with ambulating. He tells me he has felt like he may fall several times. He does have some numbness and tingling in his feet w/ history of diabetic neuropathy. He denies any headache, dizziness, vision changes, nausea, vomiting, chest pain, weakness or paresthesias of the upper extremities. This is the patients 4th covid vaccine (2 NOMERMAIL.RU, 1 moderna, 1 NOMERMAIL.RU). He has been unable to take most of his oral medications the last few days d/t difficulty with ambulating. Related Data Home Medications Medication Instructions Recorded Confirmed pramipexole 0.5 mg tablet (Mirapex) 0.5 mg PO BEDTIME 07/10/20 01/20/22 blood sugar diagnostic #10 ea 07/28/20 01/15/22 aspirin 81 mg tablet,delayed 81 mg PO DAILY 05/01/21 01/20/22 release calcium carbonate 600 mg-vitamin 1 tab PO DAILY 05/01/21 01/20/22 D3 5 mcg (200 unit) tablet multivitamin 1 tab PO DAILY 05/01/21 01/20/22 omega-3 fatty acids 1,000 mg PO DAILY 05/01/21 01/20/22 omeprazole 20 mg capsule,delayed 20 mg PO NEEDED 06/19/21 01/20/22 release blood-glucose meter (OneTouch 09/21/21 01/15/22 Ultra2 Meter) cinnamon bark 500 mg capsule 500 mg PO DAILY 11/06/21 01/20/22 (Cinnamon) pioglitazone 30 mg tablet (Actos) 30 mg PO DAILY 11/06/21 01/20/22 Previous Rx's Medication Instructions Recorded atorvastatin 20 mg tablet 20 mg PO DAILY #90 tab 08/21/20 insulin degludec 200 unit/mL (3 50 unit (0.25 mL) SUBCUT DAILY 30 06/05/21 mL) subcutaneous pen ( #9 ml FlexTouch U-200 insulin) lisinopril 10 mg tablet 10 mg PO DAILY 90 Days #90 tab 06/05/21 pen needle, diabetic 32 gauge x 1 ea MISCELLANEOUS BID #100 ea 06/25/21 5/32 (BD Irma 2nd Gen Pen Needle) metformin 1,000 mg tablet 1,000 mg PO BID #180 tab 07/05/21 lancets 33 gauge #100 ea 10/03/21 empagliflozin 25 mg tablet 25 mg PO QAM #30 tab 12/27/21 (Jardiance) blood sugar diagnostic (OneTouch #100 ea 12/28/21 Ultra Test) Allergies Allergy/AdvReac Type Severity Reaction Status Date / Time No Known Allergies Allergy Verified 01/15/22 10:33 [No Known Allergies*] Review of Systems Review of Systems: Yes all other systems are reviewed and are negative Constitutional: Constitutional: Reports no additional constitutional complaints, Denies body ache(s), Denies chills, Denies fever(s), Denies headache(s) and Reports weakness Eyes: Eyes: Reports no additional eye complaints and Denies change in vision ENT: Reports system reviewed and no additional complaints, except as documented, Denies dizziness, Denies headache(s), Denies nasal congestion, Denies nasal discharge and Denies neck pain Cardiovascular: Cardiovascular: Reports no additional cardiovascular complaints, Denies chest pain, Denies leg edema and Denies dyspnea Respiratory: Respiratory: Reports no additional respiratory complaints, Denies cough and Denies dyspnea Gastrointestinal: Gastrointestinal: Reports no additional gastrointestinal complaints, Denies abdominal pain, Denies diarrhea, Denies nausea and Denies vomiting Genitourinary: Genitourinary: Denies urinary incontinence Musculoskeletal: Musculoskeletal: Reports no additional musculoskeletal complaints, Denies back pain, Denies arthralgias, Denies joint swelling, Denies neck pain, Denies numbness and Reports tingling Integumentary/Breasts: Skin/Breast: Reports system reviewed and no additional complaints, except as docu and Denies rash Neurologic: Reports system reviewed and no additional complaints, except as documented, Denies dizziness, Denies headache(s), Denies numbness, Reports tingling and Reports weakness PMFSH Past Medical History Attestation statement: The following information was validated with the patient. Source: old records reviewed and nursing notes reviewed Medical History Cataract CKD (chronic kidney disease) stage 2, GFR 60-89 ml/min Colon cancer Diabetes mellitus Dyslipidemia Erectile dysfunction Family history of pancreatic cancer Fuchs' corneal dystrophy History of colon cancer Hypertension Hypertensive nephrosclerosis Neuropathy Obesity (BMI 30.0-34.9) Persistent proteinuria Proteinuria RLS (restless legs syndrome) Type 2 diabetes mellitus with diabetic polyneuropathy Type 2 diabetes mellitus with hyperglycemia, with long-term current use of insulin Type 2 diabetes mellitus with other diabetic kidney complication Xerosis cutis Surgical History History of colon resection (~04/20/19) History of colonoscopy (~03/15/19) Hx of cornea transplant Hx of left cataract extraction Family History Family History Mother History of pancreatic cancer Father No problems noted. Brother Diabetes Maternal Grandmother Diabetes Social History Social History Household Members: None Housing: Condominium Are you a primary respiratory care program director to a significant other at home: No Do you presently have visiting nurse or other home services: No Alcohol intake: never Patient Tobacco Use Status: Never used Tobacco e-Cigarette/Vaping Use: Never Used Second Hand Smoke Exposure: No Advance Directives: No Advance Directives Information Provided: No service: No Current occupational status: retired Physical Exam ED Vital Signs: Vital Signs - 24 hr 01/20/22 09:50 01/20/22 10:57 01/20/22 11:27 Temperature 98 F Pulse Rate 71 64 63 Respiratory Rate 19 Blood Pressure 211/82 H 190/72 H 138/64 Pulse Oximetry 99 01/20/22 12:26 Temperature 98.7 F Pulse Rate 69 Respiratory Rate 18 Blood Pressure 168/69 H Pulse Oximetry 97 BMI result Body Mass Index 28.7 Const General: cooperative and alert Orientation/consciousness: patient oriented x3 Limitations: no limitations HENMT Head: Yes normal to inspection Ears: hearing grossly normal bilaterally and TM's normal bilaterally General nose exam: Normal external nose present Face and sinus: Yes normal facial exam Mouth: Normal oral and palatal mucosa present Teeth and gingiva: dentition normal Throat: Yes posterior oropharynx normal and Yes tonsils normal Eyes General: appearance normal, both eyes and all related structures Pupils: Equal, round and reactive pupils present Neck Neck: Yes normal visual inspection, Yes full ROM, Yes no lymphadenopathy and Yes no meningeal signs Chest Chest palpation & inspection: normal inspection of the chest Resp Effort & Inspection: normal respiratory effort Auscultation: clear to auscultation bilaterally Cardio Rate: regular rate Rhythm: regular rhythm Peripheral pulses: Peripheral pulses 2+ throughout GI Inspection: Yes normal to inspection Palpation (GI): Soft to palpation and nontender General: Yes no CVA tenderness Back/Spine/Pelvis Back: no CVA tenderness Thoracic/Lumbar Spine: thoracic and lumbar spine normal to inspection Skin General skin exam: no rashes or lesions noted Neuro Other: Walked by Dr Mills (reportedly steady gait) General: patient oriented x3, moves all extremities and no meningeal signs Cranial nerves: Yes CN's II-XII intact bilaterally, Yes Equal, round and reactive pupils present, Yes Bilaterally intact EOM present, Yes Nystagmus not present, Yes Normal facial strength present and Yes Midline tongue present Cognition (Neuro): normal cognition Gait exam (Neuro): Wide-based gait present Motor exam (neuro): 5/5 motor strength present throughout Sensory Exam: Normal double simultaneous stimulation for sensation Deep tendon reflexes (DTR's): Right patellar reflex intensity grade: 2+ and Left patellar reflex intensity grade: 2+ Coordination: [id number] test normal and [id number] test normal Extrem General: Yes normal to inspection, Yes no pedal edema and Yes no calf tenderness Course Course Course Narrative: 58-year-old male with history of insulin-dependent diabetes, high cholesterol, hypertension here with reports of bilateral lower extremity weakness over the last 5-6 days with some associated numbness and tingling of feet which patient tells me began after receiving his covid vaccine booster. No head injury or LOC or fall. Has felt like he was going to fall but no falls. No upper extremity weakness or paresthesia. No headaches or dizziness reported. Has not taken his oral medications as he could not get to his medications d/t weakness. Has been able to give himself his insulin. On arrival patient is hypertensive but has not taken his bp medications in several days. No focal deficits on exam. Normal cerebellar functions. Has present DTR LE. Walked by Dr Mills with steady gait. Will need labs, EKG, CT head Reevaluation(s) Reevaluation #1: Reviewed labs which showed elevated hgb 18.8, hct 55.5 (previous 11/06/21 show hgb 17.7, hct 52.7). Not likely d/t hemoconcentration with normal electrolytes. On review of previous CBC it does seem to be trending up. No history of polycythemia vera. No risk factors such as smoking history, COPD will normal oxygen saturation. Patient also has mild thrombocytopenia which is unchanged from previous. Additional labs, EKG. I did discuss the case with Dr. Tolbert from Hematology. She has not seen similar cases of patients with difficulty walking, lower extremity weakness with polycythemia. She is happy to see the patient outpatient to have a workup for polycythemia done. Discussed case at length with Dr Mills who also saw the patient. We will give NSB and re-assess. CT head pending Time: 11:30 Reevaluation #2: Ct head 1. No CT evidence of acute intracranial hemorrhage or edematous territorial infarction. ? 2. Foci of bony lucencies/endosteal scalloping of the skull, detailed above. This is of indeterminate etiology. Correlate with clinical history. Differential consideration include multiple myeloma. Further workup as clinically warranted. ? 3. Sinus disease as detailed above. -D/w with Dr Mills. No focal brain lesion seen. ?need additional imaging such as MRI brain, neurology consult d/t bilateral leg weakness, difficulty ambulating which is a new onset over the last 6 days. 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 Call out to medicine to discuss. Time: 12:00 Reevaluation #3: CXR shows no acute finding. Spoke to medicine hospitalist Dr Schroeder who asks me to speak to heme/onc about ct findings to ensure we can manage this patient appopriately here at [facility] and he does not require transfer to a tertiary care center. I did speak to Dr Tolbert and updated her in regards to the ct findings. No need for transfer. Medicine accepted admission Time: 12:45 Medical Decision Making MDM Narrative Medical decision making narrative: We discussed GB although less likely with normal reflexes rhabdo, ICH vs CVA vs lesion, electrolyte abnormality, deconditioning Medical Records Medical records reviewed: Yes I reviewed the patient's medical records. Lab Data Lab results reviewed: Yes I reviewed the patient's lab results. Result diagrams: 01/20/22 10:29 01/20/22 10:29 Labs: Lab Results 01/20/22 01/20/22 01/20/22 Range/Units 10:29 10:29 10:29 WBC 6.5 (4.8-10.8) X10*3/uL RBC 6.37 H (4.60-5.80) X10*6/uL Hgb 18.8 H (14.0-18.0) g/dl Hct 55.5 H (42.0-52.0) % MCV 87.1 (80.0-98.0) fL MCH 29.5 (27.0-33.0) pg MCHC 33.9 (31.0-36.0) g/dl RDW 13.2 (11.0-16.0) % Plt Count 148 L (160-400) X10*3/uL MPV 11.6 (9.4-12.4) fL Immature Gran % (Auto) 0.5 H (0.0-0.4) % Neut % (Auto) 74.1 H (45-73) % Lymph % (Auto) 15.8 L (20-40) % Stewart % (Auto) 7.6 (2-11) % Eos % (Auto) 1.1 (0-4) % Baso % (Auto) 0.9 (0-2) % Lymph # (Auto) 1.0 L (1.2-4.9) X10*3/uL Stewart # (Auto) 0.5 (0.1-1.2) X10*3/uL Eos # (Auto) 0.1 (0.0-0.4) X10*3/uL Baso # (Auto) 0.1 (0.0-0.2) X10*3/uL Abs Immat Gran (auto) 0.03 (0.00-0.03) X10*3/uL Absolute Neuts (auto) 4.8 (2.0-8.3) x10*3/uL Absolute Nucleated RBC 0.000 (0.0-0.012) X10*3/uL Nucleated RBC % (auto) 0.0 (0.0-0.2) /100WBC PT 13.2 H (9.9-13.0) SEC INR 1.2 H (0.9-1.1) Sodium 140 (135-145) mmol/L Potassium 4.4 (3.3-5.1) mmol/L Chloride 107 (96-108) mmol/L Carbon Dioxide 22 (22-29) mmol/L Anion Gap 15 (12-20) BUN 14 (9-16) mg/dL Creatinine 0.82 (0.5-1.4) mg/dL Estim Creat Clear Calc 97.6 Estimated GFR > 60 Random Glucose 69 D (60-115) mg/dL Calcium 9.5 (8.4-10.2) mg/dL Magnesium 2.1 (1.6-2.6) mg/dL Total Bilirubin 1.1 H (0.0-1.0) mg/dL Direct Bilirubin 0.4 (0.0-0.5) mg/dL AST 25 (5-37) U/L ALT 18 (0-40) U/L Alkaline Phosphatase 86 (39-117) U/L Total Creatine Kinase 191 H (38-174) U/L Troponin I High Sens (<3.5-35.0) ng/L Total Protein 6.7 (6.5-8.0) g/dL Albumin 4.1 (3.5-5.0) g/dL COVID-19 (JORDIN) (Negative) COVID-19 Clin Com 01/20/22 01/20/22 Range/Units 10:29 12:56 WBC (4.8-10.8) X10*3/uL RBC (4.60-5.80) X10*6/uL Hgb (14.0-18.0) g/dl Hct (42.0-52.0) % MCV (80.0-98.0) fL MCH (27.0-33.0) pg MCHC (31.0-36.0) g/dl RDW (11.0-16.0) % Plt Count (160-400) X10*3/uL MPV (9.4-12.4) fL Immature Gran % (Auto) (0.0-0.4) % Neut % (Auto) (45-73) % Lymph % (Auto) (20-40) % Stewart % (Auto) (2-11) % Eos % (Auto) (0-4) % Baso % (Auto) (0-2) % Lymph # (Auto) (1.2-4.9) X10*3/uL Stewart # (Auto) (0.1-1.2) X10*3/uL Eos # (Auto) (0.0-0.4) X10*3/uL Baso # (Auto) (0.0-0.2) X10*3/uL Abs Immat Gran (auto) (0.00-0.03) X10*3/uL Absolute Neuts (auto) (2.0-8.3) x10*3/uL Absolute Nucleated RBC (0.0-0.012) X10*3/uL Nucleated RBC % (auto) (0.0-0.2) /100WBC PT (9.9-13.0) SEC INR (0.9-1.1) Sodium (135-145) mmol/L Potassium (3.3-5.1) mmol/L Chloride (96-108) mmol/L Carbon Dioxide (22-29) mmol/L Anion Gap (12-20) BUN (9-16) mg/dL Creatinine (0.5-1.4) mg/dL Estim Creat Clear Calc Estimated GFR Random Glucose (60-115) mg/dL Calcium (8.4-10.2) mg/dL Magnesium (1.6-2.6) mg/dL Total Bilirubin (0.0-1.0) mg/dL Direct Bilirubin (0.0-0.5) mg/dL AST (5-37) U/L ALT (0-40) U/L Alkaline Phosphatase (39-117) U/L Total Creatine Kinase (38-174) U/L Troponin I High Sens < 3.5 (<3.5-35.0) ng/L Total Protein (6.5-8.0) g/dL Albumin (3.5-5.0) g/dL COVID-19 (JORDIN) Negative (Negative) COVID-19 Clin Com See Note Imaging Data CT scan - head: Attestation: I personally reviewed and interpreted this imaging study as follows: Radiologist's impression: [address] [address] [address] Scan Report Signed Patient: Navarro Frost MR#: [id number] : 1955 Acct:[id number] Age/Sex: 66 / M ADM Date: 01/20/22 Loc: HO.ED Attending Dr: Ordering Physician: Pennie Malik NP Date of Service: 01/20/22 Procedure(s): CT head/brain wo con Accession Number(s): [id number] cc: Pennie Malik NP~ EXAMINATION: CT HEAD WITHOUT CONTRAST CLINICAL INFORMATION: Lower extremity weakness? COMPARISON: None TECHNIQUE: Contiguous axial imaging was performed from the skull base to vertex without intravenous administration of contrast. This CT examination was performed using dose optimization techniques as appropriate, variously including the following: *Automated exposure control *Adjustment of mA and/or kV according to patient size (this includes techniques or standardized protocols for targeted exams where dose is matched to indication/reason for exam; i.e. extremities or head) *Use of iterative reconstruction technique DLP: 776 mGy-cm FINDINGS: There is no evidence of acute intracranial hemorrhage or edematous territorial infarction. No abnormal mass effect or midline shift is seen. Barnett to white matter differentiation is well preserved. No extra-axial fluid collections are identified. Commensurate prominence of the ventricles and sulci is compatible with generalized parenchymal volume loss.? There is no abnormal attenuation within the brain parenchyma. There is a focus of bony lucency/endosteal scalloping and cortical thinning in the left occipital region. There are additional foci of endosteal scalloping/lucencies suspected in the skull apex, for example seen on image 6:10, and the corresponding sagittal and coronal reconstructions. These of indeterminate etiology. Bilateral maxillary, ethmoid sinus mucosal thickening. Left frontal sinus opacification. Mastoid air cells are well-aerated. CT/CT head/brain wo con IMPRESSION: ? 1. No CT evidence of acute intracranial hemorrhage or edematous territorial infarction. ? 2. Foci of bony lucencies/endosteal scalloping of the skull, detailed above. This is of indeterminate etiology. Correlate with clinical history. Differential consideration include multiple myeloma. Further workup as clinically warranted. ? 3. Sinus disease as detailed above. Chest x-ray: Attestation: I personally reviewed and interpreted this imaging study as follows: Radiologist's impression: [address] [address] XRay Report Signed Patient: Navarro Frost MR#: [id number] : 1955 Acct:[id number] Age/Sex: 66 / M ADM Date: 01/20/22 Loc: .ED Attending Dr: Ordering Physician: Pennie Malik NP Date of Service: 01/20/22 Procedure(s): XR chest 2V Accession Number(s): [id number] cc: Pennie Malik NP~ EXAMINATION: XR CHEST CLINICAL INFORMATION: Weakness COMPARISON: Chest x-ray on 11/03/2019 TECHNIQUE: 2 views of the chest were obtained. FINDINGS: No significant abnormality is noted involving the heart, lungs, mediastinum, bony thorax or soft tissues. XR/XR chest 2V IMPRESSION: Unremarkable examination. ECG Data Attestation: I personally reviewed and interpreted this ECG as follows: Interpretation: Sinus rhythm with PACs with a rate of 63, normal SD, normal QRS normal QT Discharge Plan Discharge Clinical Impression: Weakness, Abnormal CT scan of head, Elevated hemoglobin Patient Disposition: Admitted As Inpatient
[2022-01-20 10:34] LABS: MANUAL DIFF FLAG NO
[2022-01-20 10:38] LABS: Basophils Absolute Auto 0.1 X10*3/uL (0.0-0.2); Basophils Percent Auto 0.9 % (0-2); Eosinophils Absolute Auto 0.1 X10*3/uL (0.0-0.4); Eosinophils Percent Auto 1.1 % (0-4); Hemoglobin 18.8 g/dl (14.0-18.0); Imm Gran Abs Auto 0.03 X10*3/uL (0.00-0.03); Imm Gran Pct Auto 0.5 % (0.0-0.4); Lymphocytes Percent Auto 15.8 % (20-40); Mean Corpuscular HGB Conc 33.9 g/dl (31.0-36.0); Mean Corpuscular Hemoglobin 29.5 pg (27.0-33.0); Mean Corpuscular Volume 87.1 fL (80.0-98.0); Mean Platelet Volume 11.6 fL (9.4-12.4); Monocytes Absolute Auto 0.5 X10*3/uL (0.1-1.2); Monocytes Percent Auto 7.6 % (2-11); Neutrophils Absolute Auto 4.8 x10*3/uL (2.0-8.3); Neutrophils Percent Auto 74.1 % (45-73); Platelet Count 148 X10*3/uL (160-400); Red Blood Count 6.37 X10*6/uL (4.60-5.80); Red Cell Distribution Width 13.2 % (11.0-16.0); White Blood Count 6.5 X10*3/uL (4.8-10.8)
[2022-01-20 10:40] LABS: Hematocrit 55.5 % (42.0-52.0)
[2022-01-20 10:44] LABS: INTERNATIONAL NORM RATIO 1.2 (0.9-1.1); Prothrombin Time 13.2 SEC (9.9-13.0)
[2022-01-20 10:57] LABS: Alanine Aminotransferase 18 U/L (0-40); Albumin Level 4.1 g/dL (3.5-5.0); Alkaline Phosphatase 86 U/L (39-117); Anion Gap 15 (12-20); Aspartate Amino Transferase 25 U/L (5-37); Bilirubin Direct 0.4 mg/dL (0.0-0.5); Bilirubin Total 1.1 mg/dL (0.0-1.0); Blood Urea Nitrogen 14 mg/dL (9-16); Calcium 9.5 mg/dL (8.4-10.2); Carbon Dioxide 22 mmol/L (22-29); Chloride 107 mmol/L (96-108); Creatinine Clr Calc Pharmacy 97.6; Estimated Glomerular Filt Rate > 60; Glucose Random 69 mg/dL (60-115); Magnesium 2.1 mg/dL (1.6-2.6); Potassium 4.4 mmol/L (3.3-5.1); Sodium 140 mmol/L (135-145); Total Protein 6.7 g/dL (6.5-8.0)
[2022-01-20] MEDS: lisinopriL 10 MG TABLET PO (10:58)
[2022-01-20 11:00] LABS: Troponin-I High Sensitivity < 3.5 ng/L (<3.5-35.0)
[2022-01-20] MEDS: 0.9 % Sodium Chloride 1,000 ML 999 ML IV (11:42)
[2022-01-20 13:17] LABS: COVID-19 Test Negative (Negative); IDNOW Serial# 16C4AD1C
--- NOTE | 2022-01-20 13:36 | PHA.MEDREC ---
Pharmacy Consult ? Medication Reconciliation Pharmacy has completed the medication reconciliation. Confirmed medications with patient. He said he last took medications one week ago since he was feeling lousy. I asked him about adherence and after a few pointed questions, he disclosed that he forgets them regularly. Looking as his rx history, his PDC ranges from 42-60%. Thanks Lito
--- NOTE | 2022-01-20 14:29 | P.HPHOSP_ITS ---
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 Patient says that he received vaccine booster(Reunify) on Friday afternoon. He called his doctor and told that he is unsteady and was asked to monitor if does not improve then should call back in a day or so. He said he initially felt better for a day or so and then started having symptoms back. He called his PCP and and due to persistent unsteadiness was decided to come come to the emergency room. ?He tells me he has felt like he may fall several times.? He does have some chronic numbness and tingling in his feet w/ history of diabetic neuropathy.? He denies any headache, dizziness, vision changes, nausea, vomiting, chest pain, weakness or paresthesias of the upper extremities . This is the patients 4th covid vaccine (2 pfizer, 1 moderna, 1 pfizer). He has been unable to take most of his oral medications the last few days d/t difficulty with ambulating. In addition: As per oncology note-patient had moderately differentiated: Hepatic flexure/right-sided colon cancer in 2019-Immunohistochemistry showed proficient MMR status.? He underwent right hemicolectomy on 04/20/2019.? Pathology-adenocarcinoma, moderately differentiated invasive into pericolonic soft tissue.? Surgical margins negative, no metastatic carcinoma in 24 lymph nodes.? Tumor size 3.7 x 3.1 x 1.8 cm, TNM stage, pT3 N0, stage IIA. Patient had colonoscopy in October 2019 : Was not adequate prep, polyp biopsies were done which showed hyperplastic. Patient said that he was supposed to go repeat colonoscopy in March. Lab imaging reviewed: WBC count 6.5, hemoglobin 18.8 hematocrit 55 platelets 14 8 Chest x-ray fine CT/CT head/brain wo con IMPRESSION: ? 1. No CT evidence of acute intracranial hemorrhage or edematous territorial infarction. ? 2. Foci of bony lucencies/endosteal scalloping of the skull, detailed above. This is of indeterminate etiology. Correlate with clinical history. Differential consideration include multiple myeloma. Further workup as clinically warranted. Review of Systems Review of Systems: As above. Yes all other systems are reviewed and are negative [facility] Medical History Cataract CKD (chronic kidney disease) stage 2, GFR 60-89 ml/min Colon cancer Diabetes mellitus Dyslipidemia Erectile dysfunction Family history of pancreatic cancer Fuchs' corneal dystrophy History of colon cancer Hypertension Hypertensive nephrosclerosis Neuropathy Obesity (BMI 30.0-34.9) Persistent proteinuria Proteinuria RLS (restless legs syndrome) Type 2 diabetes mellitus with diabetic polyneuropathy Type 2 diabetes mellitus with hyperglycemia, with long-term current use of insulin Type 2 diabetes mellitus with other diabetic kidney complication Xerosis cutis Family History Mother History of pancreatic cancer Father No problems noted. Brother Diabetes Maternal Grandmother Diabetes Pertinent family history: Mother had pancreatic cancer. Surgical History History of colon resection (~04/20/19) History of colonoscopy (~03/15/19) Hx of cornea transplant Hx of left cataract extraction Social History Household Members: None Housing: [facility] Are you a primary career development engineer to a significant other at home: No Do you presently have visiting nurse or other home services: No Alcohol intake: never Patient Tobacco Use Status: Never used Tobacco e-Cigarette/Vaping Use: Never Used Second Hand Smoke Exposure: No Advance Directives: No Advance Directives Information Provided: No service: No Current occupational status: retired Meds Allergies Allergy/AdvReac Type Severity Reaction Status Date / Time No Known Allergies Allergy Verified 01/15/22 10:33 [No Known Allergies*] Active Medications: Current Medications Dextrose (Dextrose 50 % 25 Gm/50 Ml Syringe) 25 gm IVPUSH Q15M PRN; Protocol PRN Reason: per Hypoglycemia Standing Ord. Enoxaparin Sodium (Enoxaparin Sodium 40 Mg/0.4 Ml Syringe) 40 mg SUBCUT Q24H RADHA Glucose (Glucose Gel 15 Gm Gel..Gram.) 15 gm PO Q15M PRN; Protocol PRN Reason: per Hypoglycemia Standing Ord. Insulin Human Lispro (Insulin Lispro 100 Unit/Ml 3 Ml Vial) 0 unit SUBCUT [facility]; Protocol Pharmacy Consult (Consult Rx Perform Med Rec) 1 each MISCELLANE ONCE PRN PRN Reason: Consult order Sodium Chloride (0.9 % Sodium Chloride Flush 3 Ml Syringe) 3 ml [facility] Home Medications Medication Instructions Recorded Confirmed Last Taken Type pramipexole 0.5 mg tablet (Mirapex) 0.5 mg PO BEDTIME 07/10/20 01/20/22 1 Week Ago History ~01/13/22 blood sugar diagnostic #10 ea 07/28/20 01/15/22 Unknown History aspirin 81 mg tablet,delayed 81 mg PO DAILY 05/01/21 01/20/22 1 Week Ago History release ~01/13/22 calcium carbonate 600 mg-vitamin 1 tab PO DAILY 05/01/21 01/20/22 1 Week Ago History D3 5 mcg (200 unit) tablet ~01/13/22 multivitamin 1 tab PO DAILY 05/01/21 01/20/22 1 Week Ago History ~01/13/22 omega-3 fatty acids 1,000 mg PO DAILY 05/01/21 01/20/22 1 Week Ago History ~01/13/22 omeprazole 20 mg capsule,delayed 20 mg PO NEEDED 06/19/21 01/20/22 1 Week Ago History release ~01/13/22 blood-glucose meter (OneTouch 09/21/21 01/15/22 Unknown History Ultra2 Meter) cinnamon bark 500 mg capsule 500 mg PO DAILY 11/06/21 01/20/22 1 Week Ago History (Cinnamon) ~01/13/22 pioglitazone 30 mg tablet (Actos) 30 mg PO DAILY 11/06/21 01/20/22 1 Week Ago History ~01/13/22 Physical Exam Vital Signs and Narrative: Vital Signs: Last Vital Signs Temp 97.8 F 01/20/22 14:21 Pulse 69 01/20/22 14:21 Resp 18 01/20/22 14:21 BP 156/68 H 01/20/22 14:21 Pulse Ox 97 01/20/22 14:21 BMI result Body Mass Index 28.7 Appearance: Alert.? Oriented X3.? not in distress.? Eyes: Pupils equal, round and reactive to light.? Sclera nonicteric.? ENT: Pharynx normal.? Moist mucous membranes. cvs: rrr, [id number] , no murmur res: clear to auscultation ,no rhonchii or wheezing abd: no rebound or guarding ,nt, bs present. ext pulses present , no cyanosis . neuro: axo3 , stregth and sensations seems intact dtr seemsfine eomi, perrla, no nystagmus gait-can take very small steps, wide gait ,unsteady Results Labs CBC and Chem 7: 01/20/22 10:29 01/20/22 10:29 Labs: Laboratory Results - last 24 hr 01/20/22 01/20/22 01/20/22 10: 10:29 10:29 MCV 87.1 MCH 29.5 MCHC 33.9 RDW 13.2 Plt Count 148 L MPV 11.6 Immature Gran % (Auto) 0.5 H Neut % (Auto) 74.1 H Lymph % (Auto) 15.8 L [place] % (Auto) 7.6 Eos % (Auto) 1.1 Baso % (Auto) 0.9 Lymph # (Auto) 1.0 L [place] # (Auto) 0.5 Eos # (Auto) 0.1 Baso # (Auto) 0.1 Abs Immat Gran (auto) 0.03 Absolute Neuts (auto) 4.8 Absolute Nucleated RBC 0.000 Nucleated RBC % (auto) 0.0 PT 13.2 H INR 1.2 H Anion Gap 15 Estim Creat Clear Calc 97.6 Estimated GFR > 60 Random Glucose 69 D Calcium 9.5 Magnesium 2.1 Total Bilirubin 1.1 H Direct Bilirubin 0.4 AST 25 ALT 18 Alkaline Phosphatase 86 Total Creatine Kinase 191 H Troponin I High Sens Total Protein 6.7 Albumin 4.1 COVID-19 (JORDIN) COVID-19 Clin Com 01/20/22 01/20/22 10:29 12:56 MCV MCH MCHC RDW Plt Count MPV Immature Gran % (Auto) Neut % (Auto) Lymph % (Auto) [place] % (Auto) Eos % (Auto) Baso % (Auto) Lymph # (Auto) [place] # (Auto) Eos # (Auto) Baso # (Auto) Abs Immat Gran (auto) Absolute Neuts (auto) Absolute Nucleated RBC Nucleated RBC % (auto) PT INR Anion Gap Estim Creat Clear Calc Estimated GFR Random Glucose Calcium Magnesium Total Bilirubin Direct Bilirubin AST ALT Alkaline Phosphatase Total Creatine Kinase Troponin I High Sens < 3.5 Total Protein Albumin COVID-19 (JORDIN) Negative COVID-19 Clin Com See Note ABG Attestation: I personally reviewed and interpreted this ABG as follows: (nsr) Imaging Radiologist's Impressions: Impressions Head CT 01/20/22 11:05 IMPRESSION: 1. No CT evidence of acute intracranial hemorrhage or edematous territorial infarction. 2. Foci of bony lucencies/endosteal scalloping of the skull, detailed above. This is of indeterminate etiology. Correlate with clinical history. Differential consideration include multiple myeloma. Further workup as clinically warranted. 3. Sinus disease as detailed above. Chest X-Ray 01/20/22 12:17 IMPRESSION: Unremarkable examination. Assessment and Plan (1) Abnormal CT scan of head: Status: Acute (2) Ataxia: Status: Acute Plan 66-year-old male who has history of adenocarcinoma colon s/p resection in 2019, family history of pancreatic cancer, history of diabetes, dyslipidemia, erectile dysfunction, hypertension, neuropathy, RLS-came with ataxia: ataxia: unclear etiology: ct head:Foci of bony lucencies/endosteal scalloping of the skull neurochecks neuro eval,may need mri in am Polycythemia: moniter cbc , gentle hydration ,hematology eval adenocarcinoma colon s/p resection in 2019,s/p colononscopy incomplte 11/06 abnormalct head oncology eval DM: fs with sliding scale coverage. Hold oral hypoglycemic meds. Dyslipidemia: Continue statin htn: Continue lisinopril. Rls: Continue pramipexole DVT prophylaxis with subQ Lovenox Above management discussed with patient detail length he understand and in agreement with the plan, time spent 70 minute, fever shortly full code. Quality Stroke Does the patient have a stroke diagnosis?: No VTE Prior VTE?: No VTE Risk Level:: Medical - moderate - high VTE Device Contraindication: N/A - Device Ordered VTE Drug Contraindication: N/A - Med Ordered
[2022-01-20] MEDS: Lactated Ringers 1,000 ML 80 ML IVCONT (14:56)
[2022-01-20 15:45] LABS: Appearance Urine CLEAR; Color Urine YELLOW; Glucose Urine UA >=1000 MG/DL (NEG); Leukocyte Esterase Urine NEG (NEG); Nitrite Urine NEG (NEG); PH 5.5 (5.0-8.0); Specific Gravity - Urine >= 1.030 (1.005-1.025); Urine Blood NEG (NEG); Urine Ketones 40 MG/DL (NEG); Urine Protein TRACE MG/DL (NEG-TRACE)
[2022-01-20] MEDS: Enoxaparin Sodium 40 MG/0.4 ML SYRINGE SUBCUT (15:52)
[2022-01-20 15:56] LABS: Mucus Urine 1+ /LPF; RBC Urine 0-2 /HPF (0); Squamous Epithelial Cell Urine TRACE /LPF; WBC Urine 0-2 /HPF (0-4)
[2022-01-20 16:39] LABS: Glucose, Whole Blood 46 mg/dL (60-115)
[2022-01-20 17:19] LABS: Glucose, Whole Blood 98 mg/dL (60-115)
[2022-01-20] MEDS: Insulin Lispro 100 UNIT/ML 3 ML VIAL SUBCUT (20:58)
[2022-01-20 20:59] LABS: Glucose, Whole Blood 207 mg/dL (60-115)
[2022-01-20] MEDS: Pramipexole Di-HCL 0.25 MG TABLET 0.5 MG PO (20:59)
[2022-01-20 23:21] LABS: Glucose, Whole Blood 128 mg/dL (60-115)
[2022-01-20] MEDS: 0.9 % Sodium Chloride Flush 3 ML SYRINGE IVFLUSH (23:38)
[2022-01-21] VITALS (8 sets, daily range): BP systolic 126–186; BP diastolic 68–95; PULSE 62–85; RESP 17–20; TEMP 36.2–37; O2SAT 94–98; BMI 28.9
--- NOTE | 2022-01-21 00:44 | PC.NURSE ---
Attempted to call reports to [facility], was told nurse will call back when available.
[2022-01-21] MEDS: Lactated Ringers 1,000 ML 80 ML IVCONT ×2 (01:40→16:15)
[2022-01-21 06:52] LABS: Hematocrit 53.3 % (42.0-52.0); Hemoglobin 17.7 g/dl (14.0-18.0); Mean Corpuscular HGB Conc 33.2 g/dl (31.0-36.0); Mean Corpuscular Hemoglobin 29.3 pg (27.0-33.0); Mean Corpuscular Volume 88.1 fL (80.0-98.0); Mean Platelet Volume 11.7 fL (9.4-12.4); Platelet Count 150 X10*3/uL (160-400); Red Blood Count 6.05 X10*6/uL (4.60-5.80); Red Cell Distribution Width 13.3 % (11.0-16.0); White Blood Count 5.8 X10*3/uL (4.8-10.8)
[2022-01-21 07:10] LABS: Anion Gap 14 (12-20); Blood Urea Nitrogen 14 mg/dL (9-16); Calcium 9.2 mg/dL (8.4-10.2); Carbon Dioxide 23 mmol/L (22-29); Chloride 108 mmol/L (96-108); Creatinine Clr Calc Pharmacy 81.2; Estimated Glomerular Filt Rate > 60; Glucose Random 73 mg/dL (60-115); Potassium 4.4 mmol/L (3.3-5.1); Sodium 141 mmol/L (135-145)
[2022-01-21 07:43] LABS: Glucose, Whole Blood 123 mg/dL (60-115)
--- NOTE | 2022-01-21 08:12 | P.PNIM_ITS ---
Subjective Subjective Date of Service: 01/21/22 Interval History: Ataxia Review of Systems Patient still ataxic and dizzy Denies any blurred vision or chest pain or shortness of breath or abdominal pain or fever chills or cough or phlegm. Physical Exam Vital Signs: Vital Signs: Last Vital Signs Temp 97.5 F 01/21/22 07:53 Pulse 68 01/21/22 07:53 Resp 20 01/21/22 07:53 BP 178/79 H 01/21/22 07:53 Pulse Ox 98 01/21/22 07:53 BMI result Body Mass Index 28.9 Appearance: Alert.? Oriented X3.? not in distress.? cvs: rrr, [id number] . res: clear to auscultation ,no rhonchii or wheezing abd: no rebound or guarding ,nt, bs present. ext pulses present , no cyanosis . neuro: axo3 , stregth and sensations seems intact dtr seemsfine still unsteady Objective Data Active Medications Aspirin (Aspirin Enteric Coated 81 Mg Tablet.Dr) 81 mg PO DAILY [facility] Atorvastatin Calcium (Atorvastatin Calcium 20 Mg Tablet) 20 mg PO DAILY [facility] Calcium Carbonate/Cholecalciferol (Calcium + Vitamin D 250 Mg Tablet) 500 mg PO DAILY [facility] Dextrose (Dextrose 50 % 25 Gm/50 Ml Syringe) 25 gm IVPUSH Q15M PRN; Protocol PRN Reason: per Hypoglycemia Standing Ord. Enoxaparin Sodium (Enoxaparin Sodium 40 Mg/0.4 Ml Syringe) 40 mg SUBCUT Q24H [facility] Last Admin: 01/20/22 15:52 Dose: 40 mg Documented by: DERRICK Glucose (Glucose Gel 15 Gm Gel..Gram.) 15 gm PO Q15M PRN; Protocol PRN Reason: per Hypoglycemia Standing Ord. Lactated Ringer's (Lr) 1,000 mls @ 80 mls/hr IVCONT .[id number] [facility] Last Admin: 01/21/22 01:40 Dose: 80 mls/hr Documented by: KULDIP Insulin Human Lispro (Insulin Lispro 100 Unit/Ml 3 Ml Vial) 0 unit SUBCUT QIDACHS [facility]; Protocol Last Admin: 01/21/22 07:44 Dose: Not Given Documented by: SHLOMO Non-Admin Reason: No Insulin Coverage Lisinopril (Lisinopril 10 Mg Tablet) 10 mg PO DAILY [facility]; Protocol Multivitamins/Vitamin C (Multivitamin Tablet) 1 tab PO DAILY [facility] Omeprazole (Omeprazole 20 Mg Capsule.Dr) 20 mg PO DAILY PRN PRN Reason: GI Upset Pharmacy Consult (Consult Rx Perform Med Rec) 1 each MISCELLANE ONCE PRN PRN Reason: Consult order Pramipexole Dihydrochloride (Pramipexole Di-Hcl 0.25 Mg Tablet) 0.5 mg PO BEDTIME [facility] Last Admin: 01/20/22 20:59 Dose: 0.5 mg Documented by: ANNETTE Sodium Chloride (0.9 % Sodium Chloride Flush 3 Ml Syringe) 3 ml IVFLUSH QSHIFT [facility] Last Admin: 01/20/22 23:38 Dose: 3 ml Documented by: ANNETTE Labs CBC & Chem 7: 01/21/22 06:13 01/21/22 06:13 Labs: Laboratory Results - last 24 hr 01/20/22 01/20/22 01/20/22 10:29 10:29 10:29 MCV 87.1 MCH 29.5 MCHC 33.9 RDW 13.2 Plt Count 148 L MPV 11.6 Immature Gran % (Auto) 0.5 H Neut % (Auto) 74.1 H Lymph % (Auto) 15.8 L [place] % (Auto) 7.6 Eos % (Auto) 1.1 Baso % (Auto) 0.9 Lymph # (Auto) 1.0 L [place] # (Auto) 0.5 Eos # (Auto) 0.1 Baso # (Auto) 0.1 Abs Immat Gran (auto) 0.03 Absolute Neuts (auto) 4.8 Absolute Nucleated RBC 0.000 Nucleated RBC % (auto) 0.0 PT 13.2 H INR 1.2 H Anion Gap 15 Estim Creat Clear Calc 97.6 Estimated GFR > 60 POC Glucose Random Glucose 69 D Calcium 9.5 Magnesium 2.1 Total Bilirubin 1.1 H Direct Bilirubin 0.4 AST 25 ALT 18 Alkaline Phosphatase 86 Total Creatine Kinase 191 H Troponin I High Sens Total Protein 6.7 Albumin 4.1 Urine Color Urine Appearance Urine pH Ur Specific [place] Urine Protein Urine Glucose (UA) Urine Ketones Urine Blood Urine Nitrite Ur Leukocyte Esterase Urine RBC Urine WBC Ur Squamous Epith Cells Urine Bacteria Urine Mucus COVID-19 (JORDIN) COVID-19 Clin Com 05/08/22 05/08/22 05/08/22 10:29 12:56 15:37 MCV MCH MCHC RDW Plt Count MPV Immature Gran % (Auto) Neut % (Auto) Lymph % (Auto) [place] % (Auto) Eos % (Auto) Baso % (Auto) Lymph # (Auto) [place] # (Auto) Eos # (Auto) Baso # (Auto) Abs Immat Gran (auto) Absolute Neuts (auto) Absolute Nucleated RBC Nucleated RBC % (auto) PT INR Anion Gap Estim Creat Clear Calc Estimated GFR POC Glucose Random Glucose Calcium Magnesium Total Bilirubin Direct Bilirubin AST ALT Alkaline Phosphatase Total Creatine Kinase Troponin I High Sens < 3.5 Total Protein Albumin Urine Color YELLOW Urine Appearance CLEAR Urine pH 5.5 Ur Specific [place] >= 1.030 H Urine Protein TRACE Urine Glucose (UA) >=1000 H Urine Ketones 40 Urine Blood NEG Urine Nitrite NEG Ur Leukocyte Esterase NEG Urine RBC 0-2 Urine WBC 0-2 Ur Squamous Epith Cells TRACE Urine Bacteria NONE Urine Mucus 1+ COVID-19 (JORDIN) Negative COVID-19 Clin Com See Note 01/20/22 01/20/22 01/20/22 16:34 17:15 20:55 MCV MCH MCHC RDW Plt Count MPV Immature Gran % (Auto) Neut % (Auto) Lymph % (Auto) [place] % (Auto) Eos % (Auto) Baso % (Auto) Lymph # (Auto) [place] # (Auto) Eos # (Auto) Baso # (Auto) Abs Immat Gran (auto) Absolute Neuts (auto) Absolute Nucleated RBC Nucleated RBC % (auto) PT INR Anion Gap Estim Creat Clear Calc Estimated GFR POC Glucose 46 L* 98 207 H Random Glucose Calcium Magnesium Total Bilirubin Direct Bilirubin AST ALT Alkaline Phosphatase Total Creatine Kinase Troponin I High Sens Total Protein Albumin Urine Color Urine Appearance Urine pH Ur Specific [place] Urine Protein Urine Glucose (UA) Urine Ketones Urine Blood Urine Nitrite Ur Leukocyte Esterase Urine RBC Urine WBC Ur Squamous Epith Cells Urine Bacteria Urine Mucus COVID-19 (JORDIN) COVID-19 Clin Com 01/20/22 01/21/22 01/21/22 23:15 06:13 06:13 MCV 88.1 MCH 29.3 MCHC 33.2 RDW 13.3 Plt Count 150 L MPV 11.7 Immature Gran % (Auto) Neut % (Auto) Lymph % (Auto) [place] % (Auto) Eos % (Auto) Baso % (Auto) Lymph # (Auto) [place] # (Auto) Eos # (Auto) Baso # (Auto) Abs Immat Gran (auto) Absolute Neuts (auto) Absolute Nucleated RBC 0.000 Nucleated RBC % (auto) 0.0 PT INR Anion Gap 14 Estim Creat Clear Calc 81.2 Estimated GFR > 60 POC Glucose 128 H Random Glucose 73 Calcium 9.2 Magnesium Total Bilirubin Direct Bilirubin AST ALT Alkaline Phosphatase Total Creatine Kinase Troponin I High Sens Total Protein Albumin Urine Color Urine Appearance Urine pH Ur Specific [place] Urine Protein Urine Glucose (UA) Urine Ketones Urine Blood Urine Nitrite Ur Leukocyte Esterase Urine RBC Urine WBC Ur Squamous Epith Cells Urine Bacteria Urine Mucus COVID-19 (JORDIN) COVID-19 [employer] Com 01/21/22 07:39 MCV MCH MCHC RDW Plt Count MPV Immature Gran % (Auto) Neut % (Auto) Lymph % (Auto) [place] % (Auto) Eos % (Auto) Baso % (Auto) Lymph # (Auto) [place] # (Auto) Eos # (Auto) Baso # (Auto) Abs Immat Gran (auto) Absolute Neuts (auto) Absolute Nucleated RBC Nucleated RBC % (auto) PT INR Anion Gap Estim Creat Clear Calc Estimated GFR POC Glucose 123 H Random Glucose Calcium Magnesium Total Bilirubin Direct Bilirubin AST ALT Alkaline Phosphatase Total Creatine Kinase Troponin I High Sens Total Protein Albumin Urine Color Urine Appearance Urine pH Ur Specific [place] Urine Protein Urine Glucose (UA) Urine Ketones Urine Blood Urine Nitrite Ur Leukocyte Esterase Urine RBC Urine WBC Ur Squamous Epith Cells Urine Bacteria Urine Mucus COVID-19 (JORDIN) COVID-19 Clin Com Assessment and Plan (1) Polycythemia: Status: Acute (2) Ataxia: Status: Acute (3) Abnormal CT scan of head: Status: Acute Plan 66-year-old male who has history of adenocarcinoma colon? s/p resection in 2019, family history of pancreatic cancer, history of diabetes, dyslipidemia, erectile dysfunction, hypertension, neuropathy, RLS-came with ataxia: ?ataxia: unclear etiology:possible related to cva ct head:Foci of bony lucencies/endosteal scalloping of the skull neurochecks added Mri with/wo contrast to evaluate above. ?1 cm acute infarct within the left vicki. No mass effect and no hemorrhagic transformation. ? - There is global cerebral volume loss and there is mild chronic microangiopathy. Chronic lacunar infarct within the right cerebellum. On aspirin, statin, neuro check, permissive hypertension. pt/ot patient will need neurology follow up and oncology followup ain am. Polycythemia: abnormal skull lucencies moniter cbc , gentle hydration ,hematology eval adenocarcinoma colon? s/p resection in 2019,s/p colononscopy incomplte 11/06 oncology eval adedd-workup for multiple myeloma with serum protein electrophoresis and serum immunofixation and epo,kappa/lambda ratio. DM: fs with sliding scale coverage. Hold oral hypoglycemic meds. ?Dyslipidemia: Continue statin htn:? Continue lisinopril. Rls:? Continue pramipexole DVT prophylaxis with subQ Lovenox need for inaptient:ataxia , cva , need Neurology and Oncology follow-up. Quality Stroke Does the patient have a stroke diagnosis?: No VTE Prior VTE?: No VTE Risk Level:: Medical - moderate - high VTE Device Contraindication: N/A - Device Ordered VTE Drug Contraindication: N/A - Med Ordered
[2022-01-21] MEDS: Calcium + Vitamin D 250 MG TABLET 500 MG PO (08:59)
[2022-01-21] MEDS: Multivitamin TABLET 1 TAB PO (08:59)
[2022-01-21] MEDS: amLODIPine Besylate 2.5 MG TABLET PO (08:59)
[2022-01-21] MEDS: Atorvastatin Calcium 20 MG TABLET PO (08:59)
[2022-01-21] MEDS: lisinopriL 10 MG TABLET PO (08:59)
[2022-01-21] MEDS: Aspirin Enteric Coated 81 MG TABLET.DR PO (08:59)
--- NOTE | 2022-01-21 09:14 | PM.NEUROCN ---
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 He said that he was in usual state of health without any illness but had COVID booster shot. 3 hours after he was at his work place when suddenly he could not walk right. he had to ask for help and embolus was called and he was brought to hospital. There was no complaint of any pain fever chills cough or loss of bowel bladder difficulty or change in mental status. There was no speech or language difficulty. He said that his feet or legs were giving away. At the same time he said that he was able to walk. Review of Systems Review of Systems: As in HPI [facility] Past Medical History Medical History Cataract CKD (chronic kidney disease) stage 2, GFR 60-89 ml/min Colon cancer Diabetes mellitus Dyslipidemia Erectile dysfunction Family history of pancreatic cancer Fuchs' corneal dystrophy History of colon cancer Hypertension Hypertensive nephrosclerosis Neuropathy Obesity (BMI 30.0-34.9) Persistent proteinuria Proteinuria RLS (restless legs syndrome) Type 2 diabetes mellitus with diabetic polyneuropathy Type 2 diabetes mellitus with hyperglycemia, with long-term current use of insulin Type 2 diabetes mellitus with other diabetic kidney complication Xerosis cutis Family History Family History Mother History of pancreatic cancer Father No problems noted. Brother Diabetes Maternal Grandmother Diabetes Surgical History Surgical History History of colon resection (~04/20/19) History of colonoscopy (~03/15/19) Hx of cornea transplant Hx of left cataract extraction Social History Social History Household Members: None Housing: Condominium Are you a primary behavioral health care coordinator to a significant other at home: No Do you presently have visiting nurse or other home services: No Alcohol intake: never Patient Tobacco Use Status: Never used Tobacco e-Cigarette/Vaping Use: Never Used Second Hand Smoke Exposure: No service: No Current occupational status: retired Meds Allergies Allergy/AdvReac Type Severity Reaction Status Date / Time No Known Allergies Allergy Verified 01/15/22 10:33 [No Known Allergies*] Active Medications: Current Medications Amlodipine Besylate (Amlodipine Besylate 2.5 Mg Tablet) 2.5 mg PO DAILY [facility]; Protocol Last Admin: 01/21/22 08:59 Dose: 2.5 mg Documented by: Aspirin (Aspirin Enteric Coated 81 Mg Tablet.) 81 mg PO DAILY [facility] Last Admin: 01/21/22 08:59 Dose: 81 mg Documented by: Atorvastatin Calcium (Atorvastatin Calcium 20 Mg Tablet) 20 mg PO DAILY [facility] Last Admin: 01/21/22 08:59 Dose: 20 mg Documented by: Calcium Carbonate/Cholecalciferol (Calcium + Vitamin D 250 Mg Tablet) 500 mg PO DAILY [facility] Last Admin: 01/21/22 08:59 Dose: 500 mg Documented by: Dextrose (Dextrose 50 % 25 Gm/50 Ml Syringe) 25 gm IVPUSH Q15M PRN; Protocol PRN Reason: per Hypoglycemia Standing Ord. Enoxaparin Sodium (Enoxaparin Sodium 40 Mg/0.4 Ml Syringe) 40 mg SUBCUT Q24H [facility] Last Admin: 01/20/22 15:52 Dose: 40 mg Documented by: Glucose (Glucose Gel 15 Gm Gel..Gram.) 15 gm PO Q15M PRN; Protocol PRN Reason: per Hypoglycemia Standing Ord. Lactated Ringer's (Lr) 1,000 mls @ 80 mls/hr IVCONT .[id number] [facility] Last Admin: 01/21/22 01:40 Dose: 80 mls/hr Documented by: Insulin Human Lispro (Insulin Lispro 100 Unit/Ml 3 Ml Vial) 0 unit SUBCUT QIDACHS [facility]; Protocol Last Admin: 01/21/22 07:44 Dose: Not Given Documented by: Lisinopril (Lisinopril 10 Mg Tablet) 10 mg PO DAILY [facility]; Protocol Last Admin: 01/21/22 08:59 Dose: 10 mg Documented by: Multivitamins/Vitamin C (Multivitamin Tablet) 1 tab PO DAILY [facility] Last Admin: 01/21/22 08:59 Dose: 1 tab Documented by: Omeprazole (Omeprazole 20 Mg Capsule.) 20 mg PO DAILY PRN PRN Reason: GI Upset Pharmacy Consult (Consult Rx Perform Med Rec) 1 each MISCELLANE ONCE PRN PRN Reason: Consult order Pramipexole Dihydrochloride (Pramipexole Di-Hcl 0.25 Mg Tablet) 0.5 mg PO BEDTIME [facility] Last Admin: 01/20/22 20:59 Dose: 0.5 mg Documented by: Sodium Chloride (0.9 % Sodium Chloride Flush 3 Ml Syringe) 3 ml IVFLUSH QSHIFT [facility] Last Admin: 01/21/22 09:01 Dose: Not Given Documented by: Home Medications Medication Instructions Recorded Confirmed Last Taken Type pramipexole 0.5 mg tablet (Mirapex) 0.5 mg PO BEDTIME 07/10/20 01/20/22 1 Week Ago History ~01/13/22 blood sugar diagnostic #10 ea 07/28/20 01/15/22 Unknown History aspirin 81 mg tablet,delayed 81 mg PO DAILY 05/01/21 01/20/22 1 Week Ago History release ~01/13/22 calcium carbonate 600 mg-vitamin 1 tab PO DAILY 05/01/21 01/20/22 1 Week Ago History D3 5 mcg (200 unit) tablet ~01/13/22 multivitamin 1 tab PO DAILY 05/01/21 01/20/22 1 Week Ago History ~01/13/22 omega-3 fatty acids 1,000 mg PO DAILY 05/01/21 01/20/22 1 Week Ago History ~01/13/22 omeprazole 20 mg capsule,delayed 20 mg PO NEEDED 06/19/21 01/20/22 1 Week Ago History release ~01/13/22 blood-glucose meter (OneTouch 09/21/21 01/15/22 Unknown History Ultra2 Meter) cinnamon bark 500 mg capsule 500 mg PO DAILY 11/06/21 01/20/22 1 Week Ago History (Cinnamon) ~01/13/22 pioglitazone 30 mg tablet (Actos) 30 mg PO DAILY 11/06/21 01/20/22 1 Week Ago History ~01/13/22 Physical Exam Vital Signs: Vital Signs: Last Vital Signs Temp 97.5 F 01/21/22 07:53 Pulse 68 01/21/22 07:53 Resp 20 01/21/22 07:53 BP 178/79 H 01/21/22 07:53 Pulse Ox 98 01/21/22 07:53 BMI result Body Mass Index 28.9 Neuro: Other: he was alert and awake with normal spontaneity of speech fluency comprehension and affect. Pupils were about 3 mm round reactive to light. Extraocular muscles were intact. Visual tovar are full to threat. Face was symmetrical except of there seems to be mild ptosis on left side. there is mild right pronator drift. Right knee reflexes brisker than left with right extensor and left flexor plantar. He is able to lift legs against gravity. There is no obvious significant hand or arm weakness. Significant muscle atrophy is noted in intrinsic hand muscles. Speech is normal. Results Labs CBC & Chem 7: 01/21/22 06:13 01/21/22 06:13 Labs: Short CBC 01/20/22 01/21/22 Range/Units 10:29 06:13 WBC 6.5 5.8 (4.8-10.8) X10*3/uL Hgb 18.8 H 17.7 (14.0-18.0) g/dl Hct 55.5 H 53.3 H (42.0-52.0) % Plt Count 148 L 150 L (160-400) X10*3/uL BMP 01/20/22 01/21/22 10:29 06:13 Sodium 140 141 Potassium 4.4 4.4 Chloride 107 108 Carbon Dioxide 22 23 BUN 14 14 Creatinine 0.82 0.99 Calcium 9.5 9.2 Cardiac Enzymes 01/20/22 Range/Units 10:29 Total Creatine Kinase 191 H (38-174) U/L Liver Function 01/20/22 Range/Units 10:29 Total Bilirubin 1.1 H (0.0-1.0) mg/dL Direct Bilirubin 0.4 (0.0-0.5) mg/dL AST 25 (5-37) U/L ALT 18 (0-40) U/L Alkaline Phosphatase 86 (39-117) U/L Albumin 4.1 (3.5-5.0) g/dL Urine 01/20/22 Range/Units 15:37 Urine Color YELLOW Urine Appearance CLEAR Urine pH 5.5 (5.0-8.0) Ur Specific [place] >= 1.030 H (1.005-1.025) Urine Protein TRACE (NEG-TRACE) MG/DL Urine Glucose (UA) >=1000 H (NEG) MG/DL Noncontrast head CT revealed moderately severe diffuse cerebral atrophy and microvascular ischemic changes especially in left side of vicki EKG reveals sinus rhythm. Assessment and Plan (1) Ataxia: Status: Acute 66 years old man with new onset of difficulty walking with legs giving away. His examination revealed mild right hemiparesis. His head CT revealed a left pontine hypodensity. This lesion might be the reason for mild right hemiparesis but without an MRI of brain it is difficult to rule out any acute lesion. I recommend an MRI of brain without contrast To rule out an acute infarct. Otherwise I recommend involving PT OT and appropriate recommendations to improve his balance and strength. He has signs of chronic peripheral neuropathy and significant changes in brain contributing to his leg strength and loss of balance and difficulty walking. Procedures Date of Service Date of Service: 01/21/22
--- NOTE | 2022-01-21 09:19 | MHC.CM.PN ---
met with pt who lives alone and had no services prior to admission pt drives but will need transportation home
--- NOTE | 2022-01-21 09:21 | P.CNHO_ITS ---
Subjective - Subjective Chief complaint: Difficulty walking Patient: known to practice within the last 3 years Consult date: 01/21/22 Primary Care Provider: STACEY Porter HPI - Consult Narrative Reason for consult: polycythemia Narrative: Navarro Frost is a 66 year old male presented to the emergency department with complaints of difficulty walking. He is known to Oncology Service because of remote history of colon cancer. Patient states that he received 2nd booster dose of COVID-19 vaccine( Instabank), last week ended day later he noticed some unsteadiness on his feet. He waited a few days but because of persistent unsteadiness he came to the ED. He also noticed some weakness in both his legs. Blood work in the emergency department revealed elevated hemoglobin of 18.8 and hematocrit of 55.5. He has had elevation of hemoglobin/hematocrit since October 2021. He has chronic mild stable thrombocytopenia. He denies any recent infections, illness or recent hospitalization. There has been no changes to his medications. He denies loss of appetite or weight loss. No abdominal pain, chest pain or shortness of breath. Review of Systems - Constitutional Reports as per HPI, Reports no additional constitutional complaints - Cardiovascular Reports no additional cardiovascular complaints - Respiratory Reports no additional respiratory complaints - Neurologic Reports no additional neurologic complaints, Denies dizziness, Denies headache(s), Denies numbness, Reports tingling, Reports weakness Oncology Screenings - ECOG Performance Status ECOG Performance Status: 2 [facility] Medical History: Medical History (Last Reviewed 01/20/22 @ 14:40 by Quang Schroeder MD) Cataract CKD (chronic kidney disease) stage 2, GFR 60-89 ml/min Colon cancer Diabetes mellitus Dyslipidemia Erectile dysfunction Family history of pancreatic cancer Fuchs' corneal dystrophy History of colon cancer Hypertension Hypertensive nephrosclerosis Neuropathy Obesity (BMI 30.0-34.9) Persistent proteinuria Proteinuria RLS (restless legs syndrome) Type 2 diabetes mellitus with diabetic polyneuropathy Type 2 diabetes mellitus with hyperglycemia, with long-term current use of insulin Type 2 diabetes mellitus with other diabetic kidney complication Xerosis cutis Family History: Family History (Last Reviewed 01/20/22 @ 14:40 by Quang Schroeder MD) Mother History of pancreatic cancer Father No problems noted. Brother Diabetes Maternal Grandmother Diabetes Surgical History: Surgical History (Last Reviewed 01/20/22 @ 14:40 by Quang Schroeder MD) History of colon resection Onset Date: ~04/20/19 History of colonoscopy Onset Date: ~03/15/19 Hx of cornea transplant Hx of left cataract extraction Social History: Social History (Last Reviewed 01/20/22 @ 14:40 by Quang Schroeder MD) Living Situation History: Household Members: None Housing: Condominium Are you a primary care tech to a significant other at home: No Do you presently have visiting nurse or other home services: No Tobacco History: Patient Tobacco Use Status: Never used Tobacco e-Cigarette/Vaping Use: Never Used Second Hand Smoke Exposure: No Occupation Assessmet: service: No Current occupational status: retired Home Medications and Allergies Current Medications: Current Medications Amlodipine Besylate (Amlodipine Besylate 2.5 Mg Tablet) 2.5 mg PO DAILY [facility]; Protocol Last Admin: 01/21/22 08:59 Dose: 2.5 mg Documented by: Aspirin (Aspirin Enteric Coated 81 Mg Tablet.) 81 mg PO DAILY [facility] Last Admin: 01/21/22 08:59 Dose: 81 mg Documented by: Atorvastatin Calcium (Atorvastatin Calcium 20 Mg Tablet) 20 mg PO DAILY [facility] Last Admin: 01/21/22 08:59 Dose: 20 mg Documented by: Calcium Carbonate/Cholecalciferol (Calcium + Vitamin D 250 Mg Tablet) 500 mg PO DAILY [facility] Last Admin: 01/21/22 08:59 Dose: 500 mg Documented by: Dextrose (Dextrose 50 % 25 Gm/50 Ml Syringe) 25 gm IVPUSH Q15M PRN; Protocol PRN Reason: per Hypoglycemia Standing Ord. Enoxaparin Sodium (Enoxaparin Sodium 40 Mg/0.4 Ml Syringe) 40 mg SUBCUT Q24H [facility] Last Admin: 01/20/22 15:52 Dose: 40 mg Documented by: Glucose (Glucose Gel 15 Gm Gel..Gram.) 15 gm PO Q15M PRN; Protocol PRN Reason: per Hypoglycemia Standing Ord. Lactated Ringer's (Lr) 1,000 mls @ 80 mls/hr IVCONT .[id number] [facility] Last Admin: 01/21/22 01:40 Dose: 80 mls/hr Documented by: Insulin Human Lispro (Insulin Lispro 100 Unit/Ml 3 Ml Vial) 0 unit SUBCUT QIDACHS [facility]; Protocol Last Admin: 01/21/22 07:44 Dose: Not Given Documented by: Lisinopril (Lisinopril 10 Mg Tablet) 10 mg PO DAILY [facility]; Protocol Last Admin: 01/21/22 08:59 Dose: 10 mg Documented by: Multivitamins/Vitamin C (Multivitamin Tablet) 1 tab PO DAILY [facility] Last Admin: 01/21/22 08:59 Dose: 1 tab Documented by: Omeprazole (Omeprazole 20 Mg Capsule.) 20 mg PO DAILY PRN PRN Reason: GI Upset Pharmacy Consult (Consult Rx Perform Med Rec) 1 each MISCELLANE ONCE PRN PRN Reason: Consult order Pramipexole Dihydrochloride (Pramipexole Di-Hcl 0.25 Mg Tablet) 0.5 mg PO BEDTIME [facility] Last Admin: 01/20/22 20:59 Dose: 0.5 mg Documented by: Sodium Chloride (0.9 % Sodium Chloride Flush 3 Ml Syringe) 3 ml IVFLUSH QSHIFT [facility] Last Admin: 01/21/22 09:01 Dose: Not Given Documented by: Home Medications Medication Instructions Recorded Confirmed Type pramipexole 0.5 mg tablet (Mirapex) 0.5 mg PO BEDTIME 07/10/20 01/20/22 History blood sugar diagnostic #10 ea 07/28/20 01/15/22 History aspirin 81 mg tablet,delayed 81 mg PO DAILY 05/01/21 01/20/22 History release calcium carbonate 600 mg-vitamin 1 tab PO DAILY 05/01/21 01/20/22 History D3 5 mcg (200 unit) tablet multivitamin 1 tab PO DAILY 05/01/21 01/20/22 History omega-3 fatty acids 1,000 mg PO DAILY 05/01/21 01/20/22 History omeprazole 20 mg capsule,delayed 20 mg PO NEEDED 06/19/21 01/20/22 History release blood-glucose meter (OneTouch 09/21/21 01/15/22 History Ultra2 Meter) cinnamon bark 500 mg capsule 500 mg PO DAILY 11/06/21 01/20/22 History (Cinnamon) pioglitazone 30 mg tablet (Actos) 30 mg PO DAILY 11/06/21 01/20/22 History Allergies Allergy/AdvReac Type Severity Reaction Status Date / Time No Known Allergies Allergy Verified 01/15/22 10:33 [No Known Allergies*] Physical Exam Vital signs: Vital Signs Temp 97.5 F 01/21/22 07:53 Pulse 68 01/21/22 07:53 Resp 20 01/21/22 07:53 BP 178/79 H 01/21/22 07:53 Pulse Ox 98 01/21/22 07:53 Intake & Output 01/20/22 01/21/22 01/21/22 18:59 06:59 18:59 Intake Total 1000 / 2098.667 1098.667 / 2098.667 Output Total 1025 / 1025 Balance 1000 / 1073.667 73.667 / 1073.667 Urine Output (Average ml/kg/hr) 0.93 Intake: Intake, Oral Amount 240 / 240 Intake, IV Amount 1000 / 1858.667 858.667 / 1858.667 0.9 % Sodium Chloride 1,000 ml 1000 / 1000 @ 999 mls/hr IV .Q1H1M STA Rx#: [id number] Lactated Ringers 1,000 ml @ 80 858.667 / 858.667 mls/hr IVCONT .[id number] RADHA Rx#: [id number] Output: Output, Urine Amount 1025 / 1025 Other: Dinner % Eaten 100% Number of Incontinent Voids 1 Urine Urinal Urine Color Pale Yellow Last Bowel Movement 01/15/22 Weight 90.718 kg 91.5 kg Weight in Grams 70877 Weight 91.5 kg - Constitutional Present: no acute distress - Routine HEENT Exam Head: Present: normal inspection Eye: Present: EOMI - Routine Neck Exam Present: supple. Absent: lymphadenopathy - Routine Respiratory Exam Present: CTAB. Absent: accessory muscle use - Routine Cardiovascular Exam Cardiovascular: Present: RRR, S1, S2 - Routine Abdominal Exam Present: soft - Routine Extremities Exam Present: pulses intact. Absent: pedal edema Hem/Onc Consult Result - Labs CBC & Chem 7: 01/21/22 06:13 01/21/22 06:13 Labs: Short CBC 01/20/22 01/21/22 Range/Units 10:29 06:13 WBC 6.5 5.8 (4.8-10.8) X10*3/uL Hgb 18.8 H 17.7 (14.0-18.0) g/dl Hct 55.5 H 53.3 H (42.0-52.0) % Plt Count 148 L 150 L (160-400) X10*3/uL BMP 01/20/22 01/21/22 10:29 06:13 Sodium 140 141 Potassium 4.4 4.4 Chloride 107 108 Carbon Dioxide 22 23 BUN 14 14 Creatinine 0.82 0.99 Calcium 9.5 9.2 Cardiac Enzymes 01/20/22 Range/Units 10:29 Total Creatine Kinase 191 H (38-174) U/L Liver Function 01/20/22 Range/Units 10:29 Total Bilirubin 1.1 H (0.0-1.0) mg/dL Direct Bilirubin 0.4 (0.0-0.5) mg/dL AST 25 (5-37) U/L ALT 18 (0-40) U/L Alkaline Phosphatase 86 (39-117) U/L Albumin 4.1 (3.5-5.0) g/dL Urine 01/20/22 Range/Units 15:37 Urine Color YELLOW Urine Appearance CLEAR Urine pH 5.5 (5.0-8.0) Ur Specific [place] >= 1.030 H (1.005-1.025) Urine Protein TRACE (NEG-TRACE) MG/DL Urine Glucose (UA) >=1000 H (NEG) MG/DL Assessment and Plan Patient Active problem list reviewed?: Yes (1) Polycythemia Status: Acute Assessment and plan: 1. This is a pleasant 66-year-old male with history of stage II colon cancer, polycythemia presenting with lower extremity weakness and difficulty with gait. Evaluation in ED with noncontrast CT head showed bony lucencies of the skull, indeterminate etiology. MRI brain with and without contrast is pending for further evaluation of his neurological symptoms. Better evaluation of skull lesions with MRI would also be helpful. In the meantime I have submitted workup for multiple myeloma with serum protein electrophoresis and serum immunofixation. He has developed polycythemia in the recent months. Serum either erythropoietin level is pending. JAK2 mutation can be submitted as outpatient. He is not a smoker and does not have any underlying lung problems. Further recommendations to follow. I thank you for this referral. - Time Spent With Patient Time Spent with Patient (in minutes): 15
--- NOTE | 2022-01-21 11:03 | P.CNNE_ITS ---
History of Present Illness Data of Consult Service Date: 01/22/22 Primary Care Provider: Mauri Dixon, [facility]- HPI Reason for consult: Stroke his MRI of brain was reviewed. It revealed an acute left pontine infarct. Otherwise minimal chronic microvascular ischemic changes were noted with moderate cerebral atrophy. Main issue is blood pressure management. This type of pathology is treated with blood pressure control, anti-platelet agent, and treatment of lipid abnormalities. As far as cancer is concerned, hyperviscosity can also lead to this kind of lesions. [facility] Past Medical History Medical History Cataract CKD (chronic kidney disease) stage 2, GFR 60-89 ml/min Colon cancer Diabetes mellitus Dyslipidemia Erectile dysfunction Family history of pancreatic cancer Fuchs' corneal dystrophy History of colon cancer Hypertension Hypertensive nephrosclerosis Neuropathy Obesity (BMI 30.0-34.9) Persistent proteinuria Proteinuria RLS (restless legs syndrome) Type 2 diabetes mellitus with diabetic polyneuropathy Type 2 diabetes mellitus with hyperglycemia, with long-term current use of insulin Type 2 diabetes mellitus with other diabetic kidney complication Xerosis cutis Family History Family History Mother History of pancreatic cancer Father No problems noted. Brother Diabetes Maternal Grandmother Diabetes Surgical History Surgical History History of colon resection (~04/20/19) History of colonoscopy (~03/15/19) Hx of cornea transplant Hx of left cataract extraction Social History Social History Household Members: None Housing: Condominium Are you a primary day care teacher to a significant other at home: No Do you presently have visiting nurse or other home services: No Alcohol intake: never Patient Tobacco Use Status: Never used Tobacco e-Cigarette/Vaping Use: Never Used Second Hand Smoke Exposure: No Use of substances other than those prescribed or required for medical reasons: No Currently Displaying Signs/Symptoms of Drug Intoxication Withdrawal: No Have you been hit, kicked, punched, or otherwise hurt by someone within the past year? If so, by whom?: No Do you feel safe in your current relationship?: No Current Relationship Is there a partner from a previous relationship who is making you feel unsafe now?: No Are you made to feel afraid or neglected: No Advance Directives: No Advance Directives Information Provided: No Do you have thoughts of harming others: None Do you have a plan to hurt others: No Plan Recently lost weight without trying: No Nutrition Risks: No Nutritional Risk service: No Current occupational status: retired Meds Allergies Allergy/AdvReac Type Severity Reaction Status Date / Time No Known Allergies Allergy Verified 01/15/22 10:33 [No Known Allergies*] Active Medications: Current Medications Amlodipine Besylate (Amlodipine Besylate 2.5 Mg Tablet) 2.5 mg PO DAILY [facility]; Protocol Last Admin: 01/21/22 08:59 Dose: 2.5 mg Documented by: Aspirin (Aspirin Enteric Coated 81 Mg Tablet.) 81 mg PO DAILY [facility] Last Admin: 01/21/22 08:59 Dose: 81 mg Documented by: Atorvastatin Calcium (Atorvastatin Calcium 20 Mg Tablet) 20 mg PO DAILY [facility] Last Admin: 01/21/22 08:59 Dose: 20 mg Documented by: Calcium Carbonate/Cholecalciferol (Calcium + Vitamin D 250 Mg Tablet) 500 mg PO DAILY [facility] Last Admin: 01/21/22 08:59 Dose: 500 mg Documented by: Dextrose (Dextrose 50 % 25 Gm/50 Ml Syringe) 25 gm IVPUSH Q15M PRN; Protocol PRN Reason: per Hypoglycemia Standing Ord. Enoxaparin Sodium (Enoxaparin Sodium 40 Mg/0.4 Ml Syringe) 40 mg SUBCUT Q24H [facility] Last Admin: 01/20/22 15:52 Dose: 40 mg Documented by: Glucose (Glucose Gel 15 Gm Gel..Gram.) 15 gm PO Q15M PRN; Protocol PRN Reason: per Hypoglycemia Standing Ord. Lactated Ringer's (Lr) 1,000 mls @ 80 mls/hr IVCONT .[id number] [facility] Last Admin: 01/21/22 01:40 Dose: 80 mls/hr Documented by: Insulin Human Lispro (Insulin Lispro 100 Unit/Ml 3 Ml Vial) 0 unit SUBCUT QIDACHS [facility]; Protocol Last Admin: 01/21/22 07:44 Dose: Not Given Documented by: Lisinopril (Lisinopril 10 Mg Tablet) 10 mg PO DAILY [facility]; Protocol Last Admin: 01/21/22 08:59 Dose: 10 mg Documented by: Multivitamins/Vitamin C (Multivitamin Tablet) 1 tab PO DAILY [facility] Last Admin: 01/21/22 08:59 Dose: 1 tab Documented by: Omeprazole (Omeprazole 20 Mg Capsule.) 20 mg PO DAILY PRN PRN Reason: GI Upset Pharmacy Consult (Consult Rx Perform Med Rec) 1 each MISCELLANE ONCE PRN PRN Reason: Consult order Pramipexole Dihydrochloride (Pramipexole Di-Hcl 0.25 Mg Tablet) 0.5 mg PO BEDTIME [facility] Last Admin: 01/20/22 20:59 Dose: 0.5 mg Documented by: Sodium Chloride (0.9 % Sodium Chloride Flush 3 Ml Syringe) 3 ml IVFLUSH QSHIFT [facility] Last Admin: 01/21/22 09:01 Dose: Not Given Documented by: Home Medications Medication Instructions Recorded Confirmed Last Taken Type pramipexole 0.5 mg tablet (Mirapex) 0.5 mg PO BEDTIME 07/10/20 01/20/22 1 Week Ago History ~01/13/22 blood sugar diagnostic #10 ea 07/28/20 01/15/22 Unknown History aspirin 81 mg tablet,delayed 81 mg PO DAILY 05/01/21 01/20/22 1 Week Ago History release ~01/13/22 calcium carbonate 600 mg-vitamin 1 tab PO DAILY 05/01/21 01/20/22 1 Week Ago History D3 5 mcg (200 unit) tablet ~01/13/22 multivitamin 1 tab PO DAILY 05/01/21 01/20/22 1 Week Ago History ~01/13/22 omega-3 fatty acids 1,000 mg PO DAILY 05/01/21 01/20/22 1 Week Ago History ~01/13/22 omeprazole 20 mg capsule,delayed 20 mg PO NEEDED 06/19/21 01/20/22 1 Week Ago History release ~01/13/22 blood-glucose meter (OneTouch 09/21/21 01/15/22 Unknown History Ultra2 Meter) cinnamon bark 500 mg capsule 500 mg PO DAILY 11/06/21 01/20/22 1 Week Ago History (Cinnamon) ~01/13/22 pioglitazone 30 mg tablet (Actos) 30 mg PO DAILY 11/06/21 01/20/22 1 Week Ago History ~01/13/22 Physical Exam Vital Signs: Vital Signs: Last Vital Signs Temp 97.5 F 01/21/22 07:53 Pulse 68 01/21/22 07:53 Resp 20 01/21/22 07:53 BP 178/79 H 01/21/22 07:53 Pulse Ox 98 01/21/22 07:53 BMI result Body Mass Index 28.9 Results Labs CBC & Chem 7: 01/22/22 07:20 01/22/22 07:20 Labs: Short CBC 01/21/22 Range/Units 06:13 WBC 5.8 (4.8-10.8) X10*3/uL Hgb 17.7 (14.0-18.0) g/dl Hct 53.3 H (42.0-52.0) % Plt Count 150 L (160-400) X10*3/uL BMP 01/21/22 06:13 Sodium 141 Potassium 4.4 Chloride 108 Carbon Dioxide 23 BUN 14 Creatinine 0.99 Calcium 9.2 Urine 01/20/22 Range/Units 15:37 Urine Color YELLOW Urine Appearance CLEAR Urine pH 5.5 (5.0-8.0) Ur Specific [place] >= 1.030 H (1.005-1.025) Urine Protein TRACE (NEG-TRACE) MG/DL Urine Glucose (UA) >=1000 H (NEG) MG/DL Procedures Date of Service Date of Service: 01/22/22
[2022-01-21 11:30] LABS: Glucose, Whole Blood 174 mg/dL (60-115)
[2022-01-21] MEDS: Insulin Lispro 100 UNIT/ML 3 ML VIAL SUBCUT ×2 (11:47→19:45)
--- NOTE | 2022-01-21 12:54 | MHC.CM.PN ---
per rounds pt to be here 1 to 2 days not ready for dc
[2022-01-21 16:36] LABS: Glucose, Whole Blood 88 mg/dL (60-115)
[2022-01-21] MEDS: Enoxaparin Sodium 40 MG/0.4 ML SYRINGE SUBCUT (17:32)
[2022-01-21] MEDS: Pramipexole Di-HCL 0.25 MG TABLET 0.5 MG PO (19:47)
[2022-01-21 19:52] LABS: Glucose, Whole Blood 210 mg/dL (60-115)
[2022-01-21 20:37] LABS: Glucose, Whole Blood 170 mg/dL (60-115)
[2022-01-22 03:41] VITALS: PULSE 60; RESP 16; TEMP 36.6; O2SAT 97
[2022-01-22] MEDS: Lactated Ringers 1,000 ML 80 ML IVCONT (04:33)
[2022-01-22 07:28] VITALS: BP 162/90; PULSE 69; RESP 17; TEMP 36.7; O2SAT 93
[2022-01-22 07:55] LABS: Glucose, Whole Blood 118 mg/dL (60-115)
[2022-01-22 08:04] LABS: Hematocrit 52.9 % (42.0-52.0); Hemoglobin 17.7 g/dl (14.0-18.0); Mean Corpuscular HGB Conc 33.5 g/dl (31.0-36.0); Mean Corpuscular Hemoglobin 29.2 pg (27.0-33.0); Mean Corpuscular Volume 87.1 fL (80.0-98.0); Mean Platelet Volume 11.4 fL (9.4-12.4); Platelet Count 152 X10*3/uL (160-400); Red Blood Count 6.07 X10*6/uL (4.60-5.80); Red Cell Distribution Width 13.4 % (11.0-16.0); White Blood Count 5.8 X10*3/uL (4.8-10.8)
[2022-01-22 08:45] LABS: Anion Gap 13 (12-20); Blood Urea Nitrogen 14 mg/dL (9-16); Calcium 9.5 mg/dL (8.4-10.2); Carbon Dioxide 25 mmol/L (22-29); Chloride 107 mmol/L (96-108); Cholesterol 186 mg/dL; Creatinine Clr Calc Pharmacy 96.8; Estimated Glomerular Filt Rate > 60; Glucose Random 93 mg/dL (60-115); HDL Cholesterol 34 mg/dL; LDL Cholesterol Calculated 118 mg/dl; Potassium 4.4 mmol/L (3.3-5.1); Sodium 141 mmol/L (135-145); Triglycerides 170 mg/dL
[2022-01-22 10:35] VITALS: BP 170/84; PULSE 87; RESP 18; TEMP 36.6; O2SAT 96
[2022-01-22 11:13] LABS: Glucose, Whole Blood 189 mg/dL (60-115)
--- NOTE | 2022-01-22 11:17 | HO.PM.IMPN ---
Subjective Subjective Date of Service: 01/22/22 Interval History: Follow-up on acute stroke interval followup: His gait is slightly better no new issues Review of Systems unsteady gait, some no dome of treat Physical Exam Vital Signs: Vital Signs: Last Vital Signs Temp 97.9 F 01/22/22 10:35 Pulse 87 01/22/22 10:35 Resp 18 01/22/22 10:35 BP 170/84 H 01/22/22 10:35 Pulse Ox 96 01/22/22 10:35 BMI result Body Mass Index 28.9 Const: Other: General: AO X 3, no acute distress Resp: CTA bilateral CVS: S1,S2,RRR GI: +BS, NT, no distention Skin: No rash Neuro: motor grossly intact, unsteady gait Psych: appropriate affect Objective Data Active Medications Amlodipine Besylate (Amlodipine Besylate 2.5 Mg Tablet) 2.5 mg PO DAILY [facility]; Protocol Last Admin: 01/21/22 08:59 Dose: 2.5 mg Documented by: SHLOMO Aspirin (Aspirin Enteric Coated 81 Mg Tablet.) 81 mg PO DAILY [facility] Last Admin: 01/21/22 08:59 Dose: 81 mg Documented by: SHLOMO Atorvastatin Calcium (Atorvastatin Calcium 20 Mg Tablet) 20 mg PO DAILY [facility] Last Admin: 01/21/22 08:59 Dose: 20 mg Documented by: SHLOMO Calcium Carbonate/Cholecalciferol (Calcium + Vitamin D 250 Mg Tablet) 500 mg PO DAILY [facility] Last Admin: 01/21/22 08:59 Dose: 500 mg Documented by: SHLOMO Dextrose (Dextrose 50 % 25 Gm/50 Ml Syringe) 25 gm IVPUSH Q15M PRN; Protocol PRN Reason: per Hypoglycemia Standing Ord. Enoxaparin Sodium (Enoxaparin Sodium 40 Mg/0.4 Ml Syringe) 40 mg SUBCUT Q24H [facility] Last Admin: 01/21/22 17:32 Dose: 40 mg Documented by: SHLOMO Glucose (Glucose Gel 15 Gm Gel..Gram.) 15 gm PO Q15M PRN; Protocol PRN Reason: per Hypoglycemia Standing Ord. Lactated Ringer's (Lr) 1,000 mls @ 80 mls/hr IVCONT .[id number] [facility] Last Admin: 01/22/22 04:33 Dose: 80 mls/hr Documented by: CELESTE Insulin Human Lispro (Insulin Lispro 100 Unit/Ml 3 Ml Vial) 0 unit SUBCUT QIDACHS [facility]; Protocol Last Admin: 01/22/22 08:22 Dose: Not Given Documented by: PENG Non-Admin Reason: No Insulin Coverage Lisinopril (Lisinopril 10 Mg Tablet) 10 mg PO DAILY [facility]; Protocol Last Admin: 01/21/22 08:59 Dose: 10 mg Documented by: SHLOMO Multivitamins/Vitamin C (Multivitamin Tablet) 1 tab PO DAILY [facility] Last Admin: 01/21/22 08:59 Dose: 1 tab Documented by: SHLOMO Omeprazole (Omeprazole 20 Mg Capsule.Dr) 20 mg PO DAILY PRN PRN Reason: GI Upset Pharmacy Consult (Consult Rx Perform Med Rec) 1 each MISCELLANE ONCE PRN PRN Reason: Consult order Pramipexole Dihydrochloride (Pramipexole Di-Hcl 0.25 Mg Tablet) 0.5 mg PO BEDTIME [facility] Last Admin: 01/21/22 19:47 Dose: 0.5 mg Documented by: CELESTE Sodium Chloride (0.9 % Sodium Chloride Flush 3 Ml Syringe) 3 ml IVFLUSH QSHIFT [facility] Last Admin: 01/22/22 00:28 Dose: Not Given Documented by: CELESTE Non-Admin Reason: IV Running Labs CBC & Chem 7: 01/22/22 07:20 01/22/22 07:20 Labs: Laboratory Results - last 24 hr 01/20/22 01/21/22 01/21/22 11:37 11:11 16:31 MCV MCH MCHC RDW Plt Count MPV Absolute Nucleated RBC Nucleated RBC % (auto) Anion Gap Estim Creat Clear Calc Estimated GFR POC Glucose 174 H 88 Random Glucose Calcium Erythropoietin 8.0 Triglycerides Cholesterol LDL Cholesterol, Calc HDL Cholesterol 01/21/22 01/21/22 01/22/22 19:41 20:31 07:20 MCV 87.1 MCH 29.2 MCHC 33.5 RDW 13.4 Plt Count 152 L MPV 11.4 Absolute Nucleated RBC 0.000 Nucleated RBC % (auto) 0.0 Anion Gap Estim Creat Clear Calc Estimated GFR POC Glucose 210 H 170 H Random Glucose Calcium Erythropoietin Triglycerides Cholesterol LDL Cholesterol, Calc HDL Cholesterol 01/22/22 01/22/22 01/22/22 07:20 07:30 10:41 MCV MCH MCHC RDW Plt Count MPV Absolute Nucleated RBC Nucleated RBC % (auto) Anion Gap 13 Estim Creat Clear Calc 96.8 Estimated GFR > 60 POC Glucose 118 H 189 H Random Glucose 93 Calcium 9.5 Erythropoietin Triglycerides 170 Cholesterol 186 LDL Cholesterol, Calc 118 HDL Cholesterol 34 Assessment and Plan (1) Polycythemia: Status: Acute (2) Ataxia: Status: Acute (3) Abnormal CT scan of head: Status: Acute Plan 66-year-old male who has history of adenocarcinoma colon? s/p resection in 2019, family history of pancreatic cancer, history of diabetes, dyslipidemia, erectile dysfunction, hypertension, neuropathy, RLS-came with ataxia: ?1. 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 s/p resection in 2019,s/p colononscopy incomplte 11/06 oncology f/u, r multiple myeloma with serum protein electrophoresis and serum immunofixation and epo,kappa/lambda ratio. DM: fs with sliding scale coverage. Hold oral hypoglycemic meds. ?Dyslipidemia: Continue statin htn:? Continue lisinopril. Rls:? Continue pramipexole DVT prophylaxis with subQ Lovenox need for inaptient:ataxia , cva with signficant ataxia and needs acute inpatient rehab, case management working on this. Quality Stroke Does the patient have a stroke diagnosis?: No VTE Prior VTE?: No VTE Risk Level:: Medical - moderate - high VTE Device Contraindication: N/A - Device Ordered VTE Drug Contraindication: N/A - Med Ordered
--- NOTE | 2022-01-22 11:27 | MHC.STROKE ---
EMS PRE-NOTIFIED (NO STROKE ALERT) 01/20/22 AT 0940. ARRIVED AT 0944. C/O DIFFICULTY WALKING. I CONFIRMED WITH THE PATIENT LAST KNOWN WELL WAS 01/15/22 AT 2200. HE WAKE ON 01/18/22 AT 0800 AND HAD SEVERE DIFFICULTY WALKING AND HE ACTUALLY SAID HE HAD TO CRAWL. HE DID NOT COME TO THE ED FOR 5 DAYS. HE IS EXCLUDED FROM [facility] DUE TO DELAY IN ARRIVAL SINCE SYMPTOM ONSET. HE ALSO ADMITS TO NOT TAKING HIS ASPIRIN AND LISINOPRIL FOR 1-2 WEEKS, HIS MRI WAS + FOR A LEFT PONTINE ISCHEMIC STROKE. HIS BP UPON ARRIVAL WAS 211/82. CASE WAS DISCUSSED WITH DR GUILLEN, SEE HIS NOTE. I PROVIDED STROKE EDUCATION AND REVIEWED THE STROKE BOOKLET, POWER POINT SLIDES, MRI SCREENSHOT THAT INCLUDED THE LOCATION OF THE STROKE AND DEFICITS EXPECTED FROM A PONTINE STROKE. WE DISCUSSED IN LENGTH HOW HYPERTENSION AFFECTS THE BLLOD VESSELS. HE DOES OWN A BP MACHINE AND I REVIEWED HOW TO TAKE HIS BP AND GAVE HIM SEVERAL HANDOUTS, A BP CHART, PEN, AND SEVERAL REFERENCE MATERIALS. WE REVIEWED HIS INDIVIDUAL RISK FACTORS. HE MENTIONED HE HAS SLEEP APNEA AND HIS MACHINE DOES NOT WORK, I CONTACTED RESPIRATORY THERAPY REGARDING THIS. I DID RELAY THIS INFORMATION TO DR GARCÍA, AND PCP DIRK NOLAN NP. THE PATIENT ALSO SEES DR CONNOR FOR NEUROPATHY, I INFORMED HIM WELL (HE HAS AN APPOINT WITH DR CONNOR IN MARCH). HE WILL FOLLOW UP WITH THAT OFFICE. PT/OT IS RECOMMENDING ACUTE REHAB AND THE PATIENT AGREES. I WILL CONTINUE TO FOLLOW.
[2022-01-22] MEDS: Insulin Lispro 100 UNIT/ML 3 ML VIAL SUBCUT ×3 (12:16→20:44)
[2022-01-22] MEDS: Multivitamin TABLET 1 TAB PO (12:16)
[2022-01-22] MEDS: 0.9 % Sodium Chloride Flush 3 ML SYRINGE IVFLUSH ×2 (12:16→20:50)
[2022-01-22] MEDS: Aspirin Enteric Coated 81 MG TABLET.DR PO (12:16)
[2022-01-22] MEDS: Atorvastatin Calcium 20 MG TABLET PO (12:16)
[2022-01-22] MEDS: Calcium + Vitamin D 250 MG TABLET 500 MG PO (12:16)
[2022-01-22] MEDS: amLODIPine Besylate 2.5 MG TABLET PO (12:17)
[2022-01-22] MEDS: lisinopriL 10 MG TABLET PO (12:17)
[2022-01-22 16:00] VITALS: BP 100/64; PULSE 80; RESP 17; TEMP 36.3; O2SAT 95
[2022-01-22 16:04] LABS: Glucose, Whole Blood 222 mg/dL (60-115)
[2022-01-22] MEDS: Enoxaparin Sodium 40 MG/0.4 ML SYRINGE SUBCUT (16:22)
[2022-01-22 19:35] VITALS: BP 121/64; PULSE 86; RESP 14; TEMP 36.7; O2SAT 96
[2022-01-22 20:15] LABS: Glucose, Whole Blood 207 mg/dL (60-115)
[2022-01-22] MEDS: Pramipexole Di-HCL 0.25 MG TABLET 0.5 MG PO (20:43)
[2022-01-22 23:32] VITALS: BP 152/78; PULSE 77; RESP 16; TEMP 37.2; O2SAT 94
[2022-01-23 03:28] VITALS: BP 143/90; PULSE 75; RESP 16; TEMP 36.3; O2SAT 98
--- NOTE | 2022-01-23 07:00 | CA_ITS ---
Transthoracic Echocardiogram Patient (Last, First, Middle): Navarro Frost, Gender: Male Date of : 1955 Age: 66 Procedure Date: 01/23/2022 Procedure Type: Transthoracic Echocardiogram Location: [facility] [place] Height: 177.8 cm Weight: 91.17 kg BSA: 2.09 m2 Heart Rate: bpm BP: 170 / 84 mmHg Supervisor Picking Crew: VERONICA Gallo MD: Robin Poole MD Mac Operator: Hunter Horne MD Symptoms: embolic stroke Study Quality: Fair ECG Rhythm: Sinus Conclusions: - 1. Normal LV systolic function with impaired relaxation filling pattern 2. Fibrocalcific aortic valve changes noted 3. Normal RV systolic pressure 4. No pericardial effusion Findings Left Ventricle Normal left ventricular size, thickness, and systolic function. The visually estimated ejection fraction is between 60-65%. Regional wall motion abnormalities can not be excluded due to suboptimal endocardial definition. Spectral Doppler is indicative of an impaired relaxation filling pattern. E/E prime ratio is between 8 and 15 consistent with indeterminate filling pressures. Right Ventricle Normal right ventricular cavity size and systolic function. Atria The left atrium is normal in size. Interatrial shunt cannot be excluded. The right atrium is normal in size. Aortic Valve There is mild calcification of the aortic valve. There is mild thickening of the aortic valve. There is no aortic valve stenosis. There is no aortic valve regurgitation. Mitral Valve There is mild anterior and posterior mitral leaflet thickening. There is mild mitral annular calcification. There is trace mitral valve regurgitation. There is no mitral valve stenosis. Pulmonic Valve The pulmonic valve was not well visualized. Tricuspid Valve Likely normal tricuspid valve structure and function. There is trace tricuspid valve regurgitation. The right ventricular systolic pressure is normal. The right ventricular systolic pressure is 14 mmHg. Normal right atrial pressure. There is no evidence of pulmonary hypertension. Great Vessels The aorta was not well visualized. The pulmonary artery was not well visualized. Venous The inferior vena cava is normal in size and collapses greater than 50% with inspiration. Pericardium/Pleural There is no evidence of pericardial effusion. Prior Study Comparison No significant change compared to prior study dated: 02/01/2021. Measurements 2D Linear Measurements IVSd: 1.05 0.6-0.9/0.6-1.0 cm LVIDd: 3.61 3.9-5.3/4.2-5.9 cm LVIDd Index: 1.73 2.4-3.2/2.2-3.1 cm/m2 LVIDs: 2.34 2.0-3.6 cm LVPWd: 1.05 0.7-1.1 cm LA Diam: 3.10 2.7-3.8/3.0-4.0 cm LAIDs Index: 1.48 1.5-2.3 cm/m2 LV Mass: 144.69 67-162/88-224 g LV Mass Index: 69.23 43-95/49-115 g/m2 LVOT Diam: 2.20 3.0+(-)1.3 cm 2D Systolic Function EF 4C: 56.50 >55% EF 2C: 63.10 >55% EF BiP: 60.10 >55% Mitral Valve MV Pk E: 0.80 MV PK A: 1.27 MV Decel Time: 380.00 E/A: 0.60 E'Lateral: 6.31 E'Medial: 5.33 E/E' Med: 15.10 E/E' Lat: 12.70 PHT: 111.00 MVA PHT: 1.98 Decel [place]: 2.11 Aortic Valve AoV Pk Thierry: 2.17 AoV Mn Thierry: 1.44 AoV VTI: 0.47 AoV Pk Grad: 19.00 Aov Mn Grad: 9.00 SHAYY Cont.VTI: 2.22 LVOT LVOT Pk Thierry: 1.06 LVOT Mn Thierry: 0.80 LVOT VTI: 0.27 LVOT Pk Grad: 4.00 LVOT Mn Grad: 3.00 LVOT Diam: 2.20 LVOT Area: 3.80 Diastolic Function MV Pk E: 0.80 MV Pk A: 1.27 E/A: 0.60 E'Medial: 5.33 E/E' Med: 15.10 E' Laterial: 6.31 E/E' Lat: 12.70 Right Ventricle TAPSE (mm): 16.30 TVS' Thierry: 9.25 Tricuspid Valve TR Pk Thierry: 1.68 TR Pk Grad: 11.00 RA Press: 3.00 RVSP: 14.00 Great Vessels Aorta Sinus of Valsalva: 3.28 2.0-3.[address] [place]: 3.07 1.7-3.4 cm Ao Asc: 3.50 2.1-3.4 cm Ao Arch: 3.30 Updated in Other Vendor System with Status of Final Hunter Horne MD electronically signed on 01/23/2022 9:33:18 AM with status of Final
[2022-01-23 07:24] VITALS: BP 160/98; PULSE 71; RESP 17; TEMP 37.1; O2SAT 94
[2022-01-23 07:52] LABS: Glucose, Whole Blood 132 mg/dL (60-115)
[2022-01-23] MEDS: Aspirin Enteric Coated 81 MG TABLET.DR PO (08:56)
[2022-01-23] MEDS: Multivitamin TABLET 1 TAB PO (08:56)
[2022-01-23] MEDS: Calcium + Vitamin D 250 MG TABLET 500 MG PO (08:56)
[2022-01-23] MEDS: amLODIPine Besylate 2.5 MG TABLET PO (08:56)
[2022-01-23] MEDS: Atorvastatin Calcium 20 MG TABLET PO (08:57)
[2022-01-23] MEDS: 0.9 % Sodium Chloride Flush 3 ML SYRINGE IVFLUSH ×3 (08:57→21:11)
[2022-01-23] MEDS: lisinopriL 10 MG TABLET PO (08:57)
[2022-01-23 11:06] VITALS: BP 131/65; PULSE 78; RESP 17; TEMP 36.6; O2SAT 93
[2022-01-23 11:21] LABS: Glucose, Whole Blood 189 mg/dL (60-115)
--- NOTE | 2022-01-23 11:48 | MHC.CM.PN ---
pt ready for dc await ins auth pt to go to [facility]
[2022-01-23] MEDS: Insulin Lispro 100 UNIT/ML 3 ML VIAL SUBCUT ×3 (12:09→21:10)
[2022-01-23 15:05] VITALS: BP 121/68; PULSE 77; RESP 18; TEMP 36.3; O2SAT 95
[2022-01-23] MEDS: Enoxaparin Sodium 40 MG/0.4 ML SYRINGE SUBCUT (15:26)
--- NOTE | 2022-01-23 18:52 | HO.PM.IMPN ---
Subjective Subjective Date of Service: 01/23/22 Interval History: Follow-up on acute stroke interval followup: His says he felt little weaker today Review of Systems unsteady gait, some no dome of treat Physical Exam Vital Signs: Vital Signs: Last Vital Signs Temp 97.4 F 01/23/22 15:05 Pulse 77 01/23/22 15:05 Resp 18 01/23/22 15:05 BP 121/68 01/23/22 15:05 Pulse Ox 95 01/23/22 15:05 BMI result Body Mass Index 28.9 Const: Other: General: AO X 3, no acute distress Resp: CTA bilateral CVS: S1,S2,RRR GI: +BS, NT, no distention Skin: No rash Neuro: motor grossly intact, unsteady gait Psych: appropriate affect Objective Data Active Medications Amlodipine Besylate (Amlodipine Besylate 2.5 Mg Tablet) 2.5 mg PO DAILY [facility]; Protocol Last Admin: 01/23/22 08:56 Dose: 2.5 mg Documented by: KIM Aspirin (Aspirin Enteric Coated 81 Mg Tablet.) 81 mg PO DAILY [facility] Last Admin: 01/23/22 08:56 Dose: 81 mg Documented by: KIM Atorvastatin Calcium (Atorvastatin Calcium 20 Mg Tablet) 20 mg PO DAILY [facility] Last Admin: 01/23/22 08:57 Dose: 20 mg Documented by: KIM Calcium Carbonate/Cholecalciferol (Calcium + Vitamin D 250 Mg Tablet) 500 mg PO DAILY [facility] Last Admin: 01/23/22 08:56 Dose: 500 mg Documented by: KIM Dextrose (Dextrose 50 % 25 Gm/50 Ml Syringe) 25 gm IVPUSH Q15M PRN; Protocol PRN Reason: per Hypoglycemia Standing Ord. Enoxaparin Sodium (Enoxaparin Sodium 40 Mg/0.4 Ml Syringe) 40 mg SUBCUT Q24H [facility] Last Admin: 01/23/22 15:26 Dose: 40 mg Documented by: KIM Glucose (Glucose Gel 15 Gm Gel..Gram.) 15 gm PO Q15M PRN; Protocol PRN Reason: per Hypoglycemia Standing Ord. Insulin Human Lispro (Insulin Lispro 100 Unit/Ml 3 Ml Vial) 0 unit SUBCUT QIDACHS [facility]; Protocol Last Admin: 01/23/22 16:02 Dose: 6 unit Documented by: KIM Lisinopril (Lisinopril 10 Mg Tablet) 10 mg PO DAILY [facility]; Protocol Last Admin: 01/23/22 08:57 Dose: 10 mg Documented by: KIM Multivitamins/Vitamin C (Multivitamin Tablet) 1 tab PO DAILY [facility] Last Admin: 01/23/22 08:56 Dose: 1 tab Documented by: KIM Omeprazole (Omeprazole 20 Mg Capsule.) 20 mg PO DAILY PRN PRN Reason: GI Upset Pharmacy Consult (Consult Rx Perform Med Rec) 1 each MISCELLANE ONCE PRN PRN Reason: Consult order Pramipexole Dihydrochloride (Pramipexole Di-Hcl 0.25 Mg Tablet) 0.5 mg PO BEDTIME [facility] Last Admin: 01/22/22 20:43 Dose: 0.5 mg Documented by: LATOYA Sodium Chloride (0.9 % Sodium Chloride Flush 3 Ml Syringe) 3 ml IVFLUSH QSHIFT [facility] Last Admin: 01/23/22 15:26 Dose: 3 ml Documented by: KIM Labs CBC & Chem 7: 01/22/22 07:20 01/22/22 07:20 Labs: Laboratory Results - last 24 hr 01/22/22 01/23/22 01/23/22 20:11 07:35 11:09 POC Glucose 207 H 132 H 189 H Assessment and Plan (1) Stroke: Status: Acute Plan 66-year-old male who has history of adenocarcinoma colon? s/p resection in 2019, family history of pancreatic cancer, history of diabetes, dyslipidemia, erectile dysfunction, hypertension, neuropathy, RLS-came with ataxia: ?1. 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 s/p resection in 2019,s/p colononscopy incomplte 11/06 oncology f/u, r multiple myeloma with serum protein electrophoresis and serum immunofixation and epo,kappa/lambda ratio. DM: fs with sliding scale coverage. Hold oral hypoglycemic meds. ?Dyslipidemia: Continue statin htn:? Continue lisinopril. Rls:? Continue pramipexole DVT prophylaxis with subQ Lovenox need for inaptient:ataxia , cva with signficant ataxia and needs acute inpatient rehab, doesn't yet have rehab to go to Quality Stroke Does the patient have a stroke diagnosis?: No VTE Prior VTE?: No VTE Risk Level:: Medical - moderate - high VTE Device Contraindication: N/A - Device Ordered VTE Drug Contraindication: N/A - Med Ordered
[2022-01-23 19:07] VITALS: BP 148/64; PULSE 75; TEMP 36.3; O2SAT 95
[2022-01-23 20:32] LABS: Glucose, Whole Blood 207 mg/dL (60-115)
[2022-01-23] MEDS: Pramipexole Di-HCL 0.25 MG TABLET 0.5 MG PO (21:10)
[2022-01-23 23:37] VITALS: BP 140/89; PULSE 75; RESP 18; TEMP 36.6; O2SAT 93
[2022-01-24 00:41] LABS: Glucose, Whole Blood 278 mg/dL (60-115)
[2022-01-24 03:06] VITALS: BP 119/53; PULSE 72; RESP 20; TEMP 36.8; O2SAT 92
[2022-01-24 07:36] VITALS: BP 150/94; PULSE 81; RESP 20; TEMP 36.9; O2SAT 96
[2022-01-24 07:38] LABS: Glucose, Whole Blood 169 mg/dL (60-115)
--- NOTE | 2022-01-24 08:53 | MHC.CM.PN ---
Addendum entered by Shira Lion 01/24/22 13:19: CM RECEIVED A RETURN CALL FROM DAVE WHO REPORTED SHE HAD SPOKEN TO THE LEAD AUDITOR AT [facility] AND THE PEER TO PEER DEADLINE HAS BEEN EXTENDED UNTIL 1430 HOURS. INFORMATION FORWARDED TO Addendum entered by Shira Lion 01/24/22 12:53: CM CALLED [facility] AND SPOKE TO DAVE. DAVE EXPLAINS THEY NEEDED A PEER TO PEER COMPLETED JEANNE EXPLAINED THE MESSAGE LEFT INDICATED THEY NEEDED EITHER A PEER TO PEER OR ADDITIONAL CLINICAL INFORMATION DAVE REPORTED THAT WAS AN ERROR AND THE SECOND NUMBER WAS ADDED JUST IN CASE THERE WERE UPDATED CLINICALS. DAVE SUGGESTED THAT THE MD CALL NOW AND SHE INDICATED SHE WOULD MESSAGE THE LEAD AUDITOR, EXPLAIN THE ERROR AND REQUEST THE DEADLINE BE EXTENDED. INFORMATION FORWARDED TO MD AND UPDATED PT EVAL FAXED Original Note: JEANNE RECEIVED A MESSAGE INDICATING [facility] WAS REQUESTING A PEER TO PEER WITH THE MD AND FURTHER CLINICAL INFORMATION TO DETERMINE IF THEY WOULD AUTHORIZE ACUTE REHAB FOR THE PT. MD NOTIFIED OF PEER TO PEER REQUEST. PTS NEUROLOGY CONSULTS, MD PROGRESS NOTES, STROKE NURSE PN, PT/OT EVALS, AND DC SUMMARY WERE FAXED TO [facility] AT [phone] IT APPEARS THAT INFORMATION HAD NOT YET BEEN SENT FOR REVIEW. PEER TO PEER #: [phone] X [phone] [facility] AUTH LINE: [phone] X [phone] [facility] REF #: [id number]
[2022-01-24] MEDS: Insulin Lispro 100 UNIT/ML 3 ML VIAL SUBCUT ×4 (09:11→20:23)
[2022-01-24] MEDS: 0.9 % Sodium Chloride Flush 3 ML SYRINGE IVFLUSH ×3 (09:12→20:15)
[2022-01-24] MEDS: Aspirin Enteric Coated 81 MG TABLET.DR PO (09:12)
[2022-01-24] MEDS: Calcium + Vitamin D 250 MG TABLET 500 MG PO (09:12)
[2022-01-24] MEDS: lisinopriL 10 MG TABLET PO (09:12)
[2022-01-24] MEDS: Multivitamin TABLET 1 TAB PO (09:12)
[2022-01-24] MEDS: Atorvastatin Calcium 20 MG TABLET PO (09:12)
[2022-01-24] MEDS: amLODIPine Besylate 2.5 MG TABLET PO (09:12)
--- NOTE | 2022-01-24 09:54 | P.PNIM_ITS ---
Subjective Subjective Date of Service: 01/24/22 Interval History: Follow-up on acute stroke interval followup: His says he felt little weaker today Review of Systems unsteady gait, some no dome of treat Physical Exam Vital Signs: Vital Signs: Last Vital Signs Temp 98.4 F 01/24/22 07:36 Pulse 81 01/24/22 07:36 Resp 20 01/24/22 07:36 BP 150/94 H 01/24/22 07:36 Pulse Ox 96 01/24/22 07:36 BMI result Body Mass Index 28.9 Const: Other: General: AO X 3, no acute distress Resp: CTA bilateral CVS: S1,S2,RRR GI: +BS, NT, no distention Skin: No rash Neuro: motor grossly intact, unsteady gait Psych: appropriate affect Objective Data Active Medications Amlodipine Besylate (Amlodipine Besylate 2.5 Mg Tablet) 2.5 mg PO DAILY [facility]; Protocol Last Admin: 01/24/22 09:12 Dose: 2.5 mg Documented by: EDDA Aspirin (Aspirin Enteric Coated 81 Mg Tablet.) 81 mg PO DAILY [facility] Last Admin: 01/24/22 09:12 Dose: 81 mg Documented by: EDDA Atorvastatin Calcium (Atorvastatin Calcium 20 Mg Tablet) 20 mg PO DAILY [facility] Last Admin: 01/24/22 09:12 Dose: 20 mg Documented by: EDDA Calcium Carbonate/Cholecalciferol (Calcium + Vitamin D 250 Mg Tablet) 500 mg PO DAILY [facility] Last Admin: 01/24/22 09:12 Dose: 500 mg Documented by: EDDA Dextrose (Dextrose 50 % 25 Gm/50 Ml Syringe) 25 gm IVPUSH Q15M PRN; Protocol PRN Reason: per Hypoglycemia Standing Ord. Enoxaparin Sodium (Enoxaparin Sodium 40 Mg/0.4 Ml Syringe) 40 mg SUBCUT Q24H [facility] Last Admin: 01/23/22 15:26 Dose: 40 mg Documented by: KIM Glucose (Glucose Gel 15 Gm Gel..Gram.) 15 gm PO Q15M PRN; Protocol PRN Reason: per Hypoglycemia Standing Ord. Insulin Human Lispro (Insulin Lispro 100 Unit/Ml 3 Ml Vial) 0 unit SUBCUT QIDACHS [facility]; Protocol Last Admin: 01/24/22 09:11 Dose: 2 unit Documented by: EDDA Lisinopril (Lisinopril 10 Mg Tablet) 10 mg PO DAILY [facility]; Protocol Last Admin: 01/24/22 09:12 Dose: 10 mg Documented by: EDDA Multivitamins/Vitamin C (Multivitamin Tablet) 1 tab PO DAILY [facility] Last Admin: 01/24/22 09:12 Dose: 1 tab Documented by: EDDA Omeprazole (Omeprazole 20 Mg Capsule.) 20 mg PO DAILY PRN PRN Reason: GI Upset Pharmacy Consult (Consult Rx Perform Med Rec) 1 each MISCELLANE ONCE PRN PRN Reason: Consult order Pramipexole Dihydrochloride (Pramipexole Di-Hcl 0.25 Mg Tablet) 0.5 mg PO BEDTIME [facility] Last Admin: 01/23/22 21:10 Dose: 0.5 mg Documented by: LATOYA Sodium Chloride (0.9 % Sodium Chloride Flush 3 Ml Syringe) 3 ml IVFLUSH QSHIFT [facility] Last Admin: 01/24/22 09:12 Dose: 3 ml Documented by: EDDA Labs CBC & Chem 7: 01/22/22 07:20 01/22/22 07:20 Labs: Laboratory Results - last 24 hr 01/23/22 01/23/22 01/23/22 11:09 15:44 20:21 POC Glucose 189 H 278 H 207 H 01/24/22 07:35 POC Glucose 169 H Assessment and Plan (1) Stroke: Status: Acute Plan 66-year-old male who has history of adenocarcinoma colon? s/p resection in 2019, family history of pancreatic cancer, history of diabetes, dyslipidemia, erectile dysfunction, hypertension, neuropathy, RLS-came with ataxia: ?1. 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 s/p resection in 2019,s/p colononscopy incomplte 11/06 oncology f/u, r multiple myeloma with serum protein electrophoresis and serum immunofixation and epo,kappa/lambda ratio. DM: fs with sliding scale coverage. Hold oral hypoglycemic meds. ?Dyslipidemia: Continue statin htn:? Continue lisinopril. Rls:? Continue pramipexole DVT prophylaxis with subQ Lovenox need for inaptient:ataxia , cva with signficant ataxia and needs acute inpatient rehab, doesn't yet have rehab to go to Quality Stroke Does the patient have a stroke diagnosis?: No VTE Prior VTE?: No VTE Risk Level:: Medical - moderate - high VTE Device Contraindication: N/A - Device Ordered VTE Drug Contraindication: N/A - Med Ordered
[2022-01-24 10:41] LABS: Hematocrit 51.5 % (42.0-52.0); Hemoglobin 17.8 g/dl (14.0-18.0); Mean Corpuscular HGB Conc 34.6 g/dl (31.0-36.0); Mean Corpuscular Hemoglobin 30.3 pg (27.0-33.0); Mean Corpuscular Volume 87.7 fL (80.0-98.0); Mean Platelet Volume 11.9 fL (9.4-12.4); Platelet Count 130 X10*3/uL (160-400); Red Blood Count 5.87 X10*6/uL (4.60-5.80); Red Cell Distribution Width 13.2 % (11.0-16.0)
[2022-01-24 11:21] VITALS: BP 106/61; PULSE 82; RESP 20; TEMP 36.7; O2SAT 95
[2022-01-24 11:37] LABS: Glucose, Whole Blood 246 mg/dL (60-115)
[2022-01-24 12:52] LABS: Kappa Light Chain, Free Serum 12.9 mg/L (3.3-19.4); Kappa/Lambda Lt Ch Free Ratio 1.26 (0.26-1.65); Lambda Light Chain, Free Serum 10.2 mg/L (5.7-26.3)
[2022-01-24 15:35] VITALS: BP 113/68; PULSE 87; RESP 18; TEMP 37.1; O2SAT 98
[2022-01-24 15:49] LABS: Glucose, Whole Blood 277 mg/dL (60-115)
[2022-01-24] MEDS: Enoxaparin Sodium 40 MG/0.4 ML SYRINGE SUBCUT (16:52)
[2022-01-24 19:51] VITALS: BP 126/70; PULSE 89; RESP 18; TEMP 37.1; O2SAT 98
[2022-01-24 20:00] LABS: Glucose, Whole Blood 289 mg/dL (60-115)
[2022-01-24] MEDS: Pramipexole Di-HCL 0.25 MG TABLET 0.5 MG PO (20:14)
[2022-01-24 23:28] VITALS: BP 140/77; PULSE 74; RESP 18; TEMP 37; O2SAT 95
[2022-01-25 03:19] VITALS: BP 120/58; PULSE 68; RESP 20; TEMP 36.8; O2SAT 98
[2022-01-25 07:25] LABS: Glucose, Whole Blood 234 mg/dL (60-115)
[2022-01-25 07:33] VITALS: BP 151/78; PULSE 76; RESP 20; TEMP 36.3; O2SAT 100
--- NOTE | 2022-01-25 08:37 | MHC.CM.PN ---
CM RECEIVED NOTIFICATION THIS MORNING THAT [facility] HAD CONTACTED HARISH LIAISON AT [address] YESTER[address] INFORMING HER THEY WERE GOING TO AUTHORIZE ACUTE REHAB FOR THIS PT. PT WILL NEED AN UPDATED COVID-19 TEST PRIOR TO TRANSFER TRANSFER SCHEDULED FOR 1000 HOURS WITH [facility] PENDING NEGATIVE COVID-19 RESULTS
[2022-01-25] MEDS: Insulin Lispro 100 UNIT/ML 3 ML VIAL SUBCUT (08:41)
[2022-01-25] MEDS: lisinopriL 10 MG TABLET PO (08:42)
[2022-01-25] MEDS: Atorvastatin Calcium 20 MG TABLET PO (08:42)
[2022-01-25] MEDS: Aspirin Enteric Coated 81 MG TABLET.DR PO (08:42)
[2022-01-25] MEDS: amLODIPine Besylate 2.5 MG TABLET PO (08:42)
[2022-01-25] MEDS: Multivitamin TABLET 1 TAB PO (08:42)
[2022-01-25] MEDS: 0.9 % Sodium Chloride Flush 3 ML SYRINGE IVFLUSH (08:42)
[2022-01-25] MEDS: Calcium + Vitamin D 250 MG TABLET 500 MG PO (08:44)
--- NOTE | 2022-01-25 09:09 | P.DS_ITS ---
DS: Providers Provider Date of Service: 01/23/22 Date of admission: 01/21/22 17:45 Primary care physician: ASHLEY Porter Consults: 01/20/22 14:24 Consult to Neurology Routine Consulting Provider: [facility] Reason for consultation: ataxia /abnormalbrain ct Has provider been notified: No 01/20/22 14:26 Consult to Hematology / Oncology Routine Consulting Provider: Leigha Tolbert Reason for consultation: POLYCYTHEMIA, possible lucencies/lesions in the skull /colon cancer hx Has provider been notified: No DS: Diagnosis Discharge Diagnosis (1) Polycythemia: Status: Acute (2) Ataxia: Status: Acute (3) Abnormal CT scan of head: Status: Acute DS: Summary Hospital Course Hospital Course: Chief Complaint: Ataxia 66-year-old male who has history of moderately differentiated adenoca? 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 Patient says that he received vaccine booster(CoderBuddy) on Friday afternoon.? He called his doctor and told that he is unsteady and was asked to monitor if does not improve? then should call back in a day or so.? He said he initially felt better for a day or so and then started having symptoms back.? He called his PCP and and due to persistent unsteadiness was decided to come come to the emergency room. ?He tells me he has felt like he may fall several times.? He does have some chronic? numbness and tingling in his feet w/ history of diabetic neuropathy.? ?He denies any headache, dizziness, vision changes, nausea, vomiting, chest pain, weakness or paresthesias of the upper extremities . This is the patients 4th covid vaccine (2 pfizer, 1 moderna, 1 pfizer). He has been unable to take most of his oral medications the last few days d/t difficulty with ambulating. In addition:? As per oncology note-patient had moderately differentiated:? Hepatic flexure/right-sided colon cancer in 2019-Immunohistochemistry showed proficient MMR status.? He underwent right hemicolectomy on 04/20/2019.? Pathology-adenocarcinoma, moderately differentiated invasive into pericolonic soft tissue.? Surgical margins negative, no metastatic carcinoma in 24 lymph nodes.? Tumor size 3.7 x 3.1 x 1.8 cm, TNM stage, pT3 N0, stage IIA. Patient had colonoscopy in October 2019 :? Was not adequate prep, polyp biopsies were done which showed hyperplastic. Patient said that he was supposed to go repeat colonoscopy in March. Lab imaging reviewed:? WBC count 6.5, hemoglobin 18.8 hematocrit 55 platelets 1 48 Chest x-ray fine CT/CT head/brain wo con IMPRESSION: ? 1. No CT evidence of acute intracranial hemorrhage or edematous territorial infarction. ? 2. Foci of bony lucencies/endosteal scalloping of the skull, detailed above. This is of indeterminate etiology. Correlate with clinical history. Differential consideration include multiple myeloma. Further workup as clinically warranted. Hospital course: ? Acute embolic stroke of? left embolic stroke of left vicki with no mass effect resulting unsteady gait and mouth droop No afib noted. Neurology recommends Statin,ASA, BP which is controlled and rehab. He is agreable to acute inpatient rehab which is approved by insurance HTN: added Norvasc 5 mg daily, continue Lisinpril Polycythemia: evaluated by Heme, no noted skul lesions on MRI,? to follow up with heme on outptient basis adenocarcinoma colon? s/p resection in 2018,s/p colononscopy incomplte 11/06 oncology f/u, r multiple myeloma with serum protein electrophoresis and serum immunofixation and epo,kappa/lambda ratio. DM: restart home medication ?Dyslipidemia: Continue statin but increase to 40 htn:? Continue lisinopril. Rls:? Continue pramipexole Time Spent with Patient Time attestation: Total time spent providing and/or coordinating discharge services: Discharge coordination time: Greater than 30 minutes Quality: Safe Use of Opioids Does Pt have an Active Cancer Diagnosis on the Problem List?: No Quality: Stroke Does the patient have a stroke diagnosis?: No Physical Exam Vital Signs: Vital Signs: Selected Entries 01/25/22 07:33 Temperature 97.3 F Pulse Rate 76 Respiratory Rate 20 Blood Pressure 151/78 H Pulse Oximetry 100 Oxygen Delivery Me thod Nasal Cannula Oxygen Flow Rate 2 DS: Data Data Completed and Pending Labs on day of discharge: Laboratory Results - last 24 hr 01/22/22 01/22/22 01/23/22 15:58 20:11 07:35 POC Glucose 222 H 207 H 132 H 01/23/22 11:09 POC Glucose 189 H Discharge Plan Discharge Anticipated Discharge Date/Time: 01/25/22 08:54 Patient Disposition: Xfer Inpatient Rehab Fac Discharge Diagnosis: Acute embolic stroke Referrals: [facility] [Outside] - 1 Week Mauri Dixon FNP-BC [Primary Care Provider] - 1 Week Discharge Medications: New amlodipine [Norvasc] 5 mg tablet 5 mg PO DAILY Qty: 30 0RF Continued lisinopril 10 mg tablet 10 mg PO DAILY 90 Days Qty: 90 0RF pen needle, diabetic [BD Irma 2nd Gen Pen Needle] 32 gauge x 5/32 needle 1 ea miscellaneous BID Qty: 100 10RF metformin 1,000 mg tablet 1,000 mg PO BID Qty: 180 1RF (DME) lancets 33 gauge misc See Rx Instructions gauge topical .MEDSUPPLY Qty: 100 11RF Rx Instructions: As directed (DME) OneTouch Ultra Test Strip See Rx Instructions .Route Qty: 100 11RF Rx Instructions: As directed three times a day multivitamin Tablet 1 tab PO DAILY 0RF calcium carbonate-vitamin D3 600 mg(1,500mg) -200 unit Tablet 1 tab PO DAILY 0RF aspirin 81 mg Tablet,Delayed Release (Dr/Ec) 81 mg PO DAILY 0RF omega-3 fatty acids Capsule 1,000 mg PO DAILY 0RF cinnamon bark [Cinnamon] 500 mg Capsule 500 mg PO DAILY 0RF pioglitazone [Actos] 30 mg tablet 30 mg PO DAILY 0RF pramipexole [Mirapex] 0.5 mg tablet 0.5 mg PO BEDTIME 0RF Tresiba FlexTouch U-200 200 unit/mL (3 mL) insulin pen 50 unit subcut DAILY 30 Days Qty: 9 6RF (DME) blood sugar diagnostic Strip See Rx Instructions ea .ROUTE TID Qty: 10 0RF Rx Instructions: As directed (DME) blood-glucose meter [OneTouch Ultra2 Meter] [facility] See Rx Instructions .Route 0RF Rx Instructions: As directed omeprazole 20 mg capsule,delayed release(DR/EC) 20 mg PO NEEDED 0RF Jardiance 25 mg tablet 25 mg PO QAM Qty: 30 8RF Changed atorvastatin 20 mg tablet 40 mg PO DAILY Qty: 90 3RF Discharge Orders: Discharge Order (Routine); Ordered 01/25/22 Ordered By: Robin Poole Diet: advance to usual diet and diabetic diet Activity on Discharge: As tolerated Stand Alone Forms: Patient Portal Discharge page Care Plan Goals: Recovery from stroke Health Concerns: Stroke Plan of Treatment: take ASA, lipitor, and participate in rehab Assessment: As above Patient Instructions: Ischemic Stroke (DC)
[2022-01-25 11:32] LABS: IgA 156 mg/dL (70-320); IgG 613 mg/dL (600-1540); IgM 60 mg/dL (50-300)
[2022-01-28 21:28] LABS: Prot Elec - Albumin 3.7 g/dL (3.8-4.8); Prot Elec - Alpha1 0.3 g/dL (0.2-0.3); Prot Elec - Alpha2 0.8 g/dL (0.5-0.9); Prot Elec - Beta 1 0.4 g/dL (0.4-0.6); Prot Elec - Beta 2 0.3 g/dL (0.2-0.5); Prot Elec - Gamma 0.6 g/dL (0.8-1.7); Prot Elec - Total Protein 5.9 g/dL (6.1-8.1)
== END 2022-01-25 10:00 | DRG 66 ==
LOC: HO.ED 12:32 → HO.EDOVER 14:31 → HO.IMC 01-21 00:25
PROVIDERS: Nurse Practitioner Family; Admitting Provider Internal Medicine; Emergency Provider Emergency Medicine; PCP Nurse Practitioner Family; Visit Provider Internal Medicine
DX: I63.19 Cerebral infarction due to embolism of other precerebral artery (principal); R20.2 Paresthesia of skin; R27.0 Ataxia, unspecified; E78.5 Hyperlipidemia, unspecified; G25.81 Restless legs syndrome; E11.42 Type 2 diabetes mellitus with diabetic polyneuropathy; I12.9 Hypertensive chronic kidney disease with stage 1 through stage 4 chronic kidney disease, or unspecified chronic kidney disease; N18.2 Chronic kidney disease, stage 2 (mild); E11.22 Type 2 diabetes mellitus with diabetic chronic kidney disease; D75.1 Secondary polycythemia; Z85.038 Personal history of other malignant neoplasm of large intestine; Z20.822 Contact with and (suspected) exposure to COVID-19; Z79.4 Long term (current) use of insulin; Z79.84 Long term (current) use of oral hypoglycemic drugs; Z79.899 Other long term (current) drug therapy
CPT/HCPCS: 36415; 70450; 70553; 71046; 80048; 80061; 80076; 81001; 82378; 82550; 82668; 82784; 82947; 83521; 83735; 84165; 84484; 85025; 85027; 85610; 86334; 87635; 93005; 93306; 96360; 97110; 97116; 97162; 97166; 97535; 99285; A9585; J1650

== ENCOUNTER 2022-03-06 13:30 | Outpatient (RCR) | payer MEDICARE, SELFPAY ==
--- NOTE | 2022-03-01 11:39 | MHC.OT.OEV ---
[address] [phone] F: [phone] Occupational Therapy Evaluation Diagnosis: Right hand weakness, CVA Date of Onset: 01/20/22 Date of Surgery: Attending Provider: Mauri Dixon Prescribed Treatment: Eval and treat MD Follow Up Appointment: History of Current Condition: Pt went to [facility] on 01/21/2022 for an unsteady gait, right lower extremity weakness. He does have a hx of diabetic neuropathy, though described this weakness to his legs after receiving his 4th covid injection on 01/15/22. He was then noted to have a right sided weakness and a facial droop. CT of head was essentially neg, though MRI of brain revealed an acute embolic stroke of the left vicki with no mass-effect. He was consulted by neuro, no afib noted, BP controlled, diabetes was stable. It was decided he would benefit from acute rehab and her was transferred to [facility] on 01/25/2022. Reports he was impressed with the care and rehab at [facility] (2-weeks) Pt reported that he was to have OT and PT at home but it was cancelled after the OT eval due to his Neurologist giving pt clearance to drive. Pt reported to his PCP that he had very minimal residual right lower extremity weakness however today reports he has trouble starting his car due to difficulty pressing the brake to start. Significant Medical History: Colon cancer, 2019 IDDM . 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 Difficulty pressing brake to start car on two occassions Vision: Balance: Owns a walker... does not use Pain Assessment Pain Score: 0 Pain Scale Used: Pain Location and Description: Denies pain Aggravating Factors: NA Alleviating Factors: NA Skin and Soft Tissue Assessment Skin and Soft Tissue: Comments: No abnormalities noted Nerve assessment Ulnar Nerve: Median Nerve: Radial Nerve: Comments: Sensory Assessment Temperature: Light Touch: WFL Proprioception: Vibration: Comments: Reports some neuropathy sx at feet and right leg numbness Edema Assessment Upper Extremity: WNL Lower Extremity: Comments: Dexterity Assessment Dexterity: Right Impaired Comments: Finger to nose, Finger to finger WNL Functional Dexterity Test R 40 sec (minimally functional) L 23 sec Callision hand writing test 18.4 sec two words illegible Special Tests Comments: AROM(PROM) Strength Cervical Cervical Flexion: Cervical Extension: Cervical Lateral Flexion: Cervical Rotation: Comments: Shoulder Flexion: R 130 deg L 130 deg Extension: Abduction: Internal Rotation: External Rotation: Comments: Foreward head , round shoulder , slouching posture ROM taken with posture corrected Slight inc tone on right Flexion: R 4- L 4+ Extension: Abduction: Internal Rotation: External Rotation: Comments: Elbow Flexion: R 4- L 4+ Extension: Pronation: Supination: Comments: Flexion: Extension: Pronation: Supination: Comments: Wrist Flexion: Extension: Ulnar Deviation: Radial Deviation: Comments: WFL Flexion: Extension: R 4 L 4+ Ulnar Deviation: Radial Deviation: Comments: Thumb Thumb CMC Flexion: Thumb MCP Flexion: Thumb IP Flexion: Radial Abduction: Palmar Abduction: Atmore (Kapandji 0-10): Comments: WNL Digits Index MCP: PIP: DIP: Long MCP: PIP: DIP: Ring MCP: PIP: DIP: Small MCP: PIP: DIP: Comments: WNL Gross Grasp: R 30 lb L 40 lb Lateral Pinch: Two-Point Pinch: Three-Jaw Frankie: Comments: Patient Education Primary Language: Luxembourgish 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 Patient demonstrates Patient verbalizes Barriers to Learning: None Readiness for Learning: Accepting Who was educated? Patient Comments: Plan of Care Assessment: Pt is a 66 yo male 5 wks s/p right CVA with mild residual weakness and hand dexterity affecting manipulation of small objects and writing. He reports his goal is to have some exercises to do at home for continued improvement in strength. He also reports right LE numbness and difficulty with walking due to balance, low strength and endurance. 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 LTG Duration: 5 wks Animal Impersonator Goals: Same as above Frequency and Duration: The patient will be seen 1x wk x 5 wks Treatment Plan: Therapeutic Exercise Therapeutic Activity Home Exercise Program Neuro Re-ed Patient Education Electronically Signed By: Heather Becerra OT CHT CLT Reviewed/agree with student documentation: N/A Therapist: Please sign and return to therapist, Thank you for your referral.
--- NOTE | 2022-04-01 10:36 | MHC.OT.DC ---
[address] [phone] F: [phone] Occupational Therapy Discharge Note Provider: Mauri Dixon Diagnosis: Right hand weakness, CVA Date of Surgery: Date of Evaluation: 03/01/22 Date of Discharge: 04/01/22 Treatments to Date: 2 Cancellations to Date: 6 No Shows to Date: Discharge Status: Discharge Summary: Pt seen 2x for right hand strengthening and dexterity. Pt has been very motivated during treatment and reported handwriting has improved from last visit. Pt cancelled all scheduled appointments Electronically Signed By: Heather Becerra OT CHT CLT Reviewed/agree with student documentation: N/A Therapist: Please Sign and return to therapist, thank you for your referral.
== END 2022-04-01 10:37 | disposition home or self-care (01) ==
LOC: HO.OT 13:30
PROVIDERS: PCP Nurse Practitioner Family; Visit Provider Nurse Practitioner Family
DX: R29.898 Other symptoms and signs involving the musculoskeletal system (principal); I63.9 Cerebral infarction, unspecified
CPT/HCPCS: 97110; 97166; 97530

== ENCOUNTER 2022-04-23 08:06 | Day surgery (SDC) | payer MEDICARE, SELFPAY ==
[2022-04-18 09:00] VITALS: BMI 28.4
--- NOTE | 2022-04-22 09:55 | P.CONAN_ITS ---
Documented by User: Glenny Landin NP 04/22/22 10:01 HPI - Anesthesia Eval Consult details Narrative: 67yo M for Colonoscopy s/p colo 11/2021 with TIVA (incomplete prep) PMFSH Active Problems Active Problems: All Active Problems (Updated 04/17/22 @ 15:30 by Jaki Stephenson RN) Obstructive sleep apnea (Acute) Physical exam (Acute) Screening PSA (prostate specific antigen) (Acute) Pre-op evaluation (Acute) Murmur (Acute) Abnormal EKG (Acute) Elevated alkaline phosphatase level (Acute) Physical exam (Acute) Screening PSA (prostate specific antigen) (Acute) Restless leg (Acute) Immunizations incomplete (Acute) Screening for tuberculosis (Acute) Elevated alkaline phosphatase level (Acute) Skin lesion (Acute) Screening PSA (prostate specific antigen) (Acute) Weakness (Acute) Elevated hemoglobin (Acute) Ataxia (Acute) Polycythemia (Acute) Stroke (Acute) Right hand weakness (Acute) Proteinuria (Acute) Type 2 diabetes mellitus with other diabetic kidney complication (Acute) Type 2 diabetes mellitus with hyperglycemia, with long-term current use of insulin (Acute) Type 2 diabetes mellitus with diabetic polyneuropathy (Acute) Hypertension (Acute) Dyslipidemia (Acute) Obesity (BMI 30.0-34.9) (Acute) Family history of pancreatic cancer (Acute) History of colon cancer (Chronic) Neuropathy (Acute) Diabetes mellitus (Acute) Past Medical History Medical History Acute embolic stroke Cataract CKD (chronic kidney disease) stage 2, GFR 60-89 ml/min Colon cancer Diabetes mellitus Dyslipidemia Erectile dysfunction Family history of pancreatic cancer Fuchs' corneal dystrophy History of colon cancer Hypertension Hypertensive nephrosclerosis Neuropathy Obesity (BMI 30.0-34.9) Persistent proteinuria Proteinuria RLS (restless legs syndrome) Sleep apnea Type 2 diabetes mellitus with diabetic polyneuropathy Type 2 diabetes mellitus with hyperglycemia, with long-term current use of insulin Type 2 diabetes mellitus with other diabetic kidney complication Xerosis cutis Family History Family History Mother History of pancreatic cancer Father No problems noted. Brother Diabetes Maternal Grandmother Diabetes Family history of problems with anesthesia: No Surgical History Surgical History History of colon resection (~04/20/19) History of colonoscopy (~03/15/19) History of esophagogastroduodenoscopy (EGD) Hx of cornea transplant Hx of left cataract extraction Social History Social History Household Members: None [facility] Are you a primary director of career resources to a significant other at home: No Do you presently have visiting nurse or other home services: No Alcohol intake: never Patient Tobacco Use Status: Never used Tobacco e-Cigarette/Vaping Use: Never Used Second Hand Smoke Exposure: No Use of substances other than those prescribed or required for medical reasons: No Are you DNR?: No Advance Directives: No Advance Directives Information Provided: Yes service: No Current occupational status: retired [employer] Allergies Allergy/AdvReac Type Severity Reaction Status Date / Time No Known Allergies Allergy Verified 04/09/22 15:27 [No Known Allergies*] Home Medications Medication Instructions Recorded Confirmed Last Taken Type pramipexole 0.5 mg tablet (Mirapex) 0.5 mg PO BEDTIME 07/10/20 04/18/22 1 Week Ago History ~01/13/22 blood sugar diagnostic #10 ea 07/28/20 03/01/22 Unknown History aspirin 81 mg tablet,delayed 81 mg PO DAILY 05/01/21 04/18/22 04/23/22 History release calcium carbonate 600 mg-vitamin 1 tab PO DAILY 05/01/21 04/18/22 1 Week Ago History D3 5 mcg (200 unit) tablet ~01/13/22 multivitamin 1 tab PO DAILY 05/01/21 04/18/22 1 Week Ago History ~01/13/22 omega-3 fatty acids 1,000 mg PO DAILY 05/01/21 04/18/22 1 Week Ago History ~01/13/22 blood-glucose meter (OneTouch 09/21/21 03/01/22 Unknown History Ultra2 Meter) tamsulosin 0.4 mg capsule 1 cap PO BEDTIME 04/18/22 04/18/22 Unknown History Exam Exam Date and Time: April 22, 2022 0955 Height,Weight and Vital Signs: Height 5 ft 10 in Weight 89.981 kg Pertinent Lab Results Pertinent Lab Results: Laboratory Tests 01/22/22 03/01/22 07:20 13:22 WBC 6.9 Hgb 16.0 Hct 47.5 Plt Count 158 L Sodium 141 Potassium 4.4 Chloride 107 Carbon Dioxide 25 BUN 14 Creatinine 0.83 Narrative Narrative: ECHO 01/2021 Conclusions: - 1. Normal LV systolic function with impaired relaxation filling pattern? 2. Fibrocalcific aortic valve changes noted with increased ? ? ? gradient suggestive of early mild aortic stenosis? 3. Normal RV systolic pressure ? 4. No pericardial effusion ?? 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 No changes from previous Assessment and Plan Assessment Anesthesia Assessment: Chart Reviewed Final Anesthetic Review Family History of Problems with Anesthesia: No Documented by User: Mai Solorzano MD 04/23/22 09:00 [facility] Past Medical History Medical History Acute embolic stroke Cataract CKD (chronic kidney disease) stage 2, GFR 60-89 ml/min Colon cancer Diabetes mellitus Dyslipidemia Erectile dysfunction Family history of pancreatic cancer Fuchs' corneal dystrophy History of colon cancer Hypertension Hypertensive nephrosclerosis Neuropathy Obesity (BMI 30.0-34.9) Persistent proteinuria Proteinuria RLS (restless legs syndrome) Sleep apnea Type 2 diabetes mellitus with diabetic polyneuropathy Type 2 diabetes mellitus with hyperglycemia, with long-term current use of insulin Type 2 diabetes mellitus with other diabetic kidney complication Xerosis cutis Family History Family History Mother History of pancreatic cancer Father No problems noted. Brother Diabetes Maternal Grandmother Diabetes Surgical History Surgical History History of colon resection (~04/20/19) History of colonoscopy (~03/15/19) History of esophagogastroduodenoscopy (EGD) Hx of cornea transplant Hx of left cataract extraction Social History Social History Household Members: None Housing: Condominium Are you a primary director of career resources to a significant other at home: No Do you presently have visiting nurse or other home services: No Alcohol intake: never Patient Tobacco Use Status: Never used Tobacco e-Cigarette/Vaping Use: Never Used Second Hand Smoke Exposure: No Use of substances other than those prescribed or required for medical reasons: No Are you DNR?: No Advance Directives: No Advance Directives Information Provided: Yes service: No Current occupational status: retired Meds Allergies Allergy/AdvReac Type Severity Reaction Status Date / Time No Known Allergies Allergy Verified 04/09/22 15:27 [No Known Allergies*] Home Medications Medication Instructions Recorded Confirmed Last Taken Type pramipexole 0.5 mg tablet (Mirapex) 0.5 mg PO BEDTIME 07/10/20 04/18/22 1 Week Ago History ~01/13/22 blood sugar diagnostic #10 ea 07/28/20 03/01/22 Unknown History aspirin 81 mg tablet,delayed 81 mg PO DAILY 05/01/21 04/18/22 04/23/22 History release calcium carbonate 600 mg-vitamin 1 tab PO DAILY 05/01/21 04/18/22 1 Week Ago History D3 5 mcg (200 unit) tablet ~01/13/22 multivitamin 1 tab PO DAILY 05/01/21 04/18/22 1 Week Ago History ~01/13/22 omega-3 fatty acids 1,000 mg PO DAILY 05/01/21 04/18/22 1 Week Ago History ~01/13/22 blood-glucose meter (OneTouch 09/21/21 03/01/22 Unknown History Ultra2 Meter) tamsulosin 0.4 mg capsule 1 cap PO BEDTIME 04/18/22 04/18/22 Unknown History Exam Airway Mallampati Class: III TM Dist: >3cm Neck ROM: Limited Loose/Missing/Broken Teeth: No Heart: RRR Lungs: CTA Assessment and Plan Assessment Anesthesia Assessment: Anesthesia Plan Discussed Final Anesthetic Review NPO: Yes ASA Class: III Final Preanesthetic Review: Meds/Allgs Chart Reviewed, Consent Obtained/Reviewed and Anes Risks/Benef Reviewed Patient Risk: Intermediate Procedure Risk: Low Anesthetic Plan Anesthetic Plan: MAC: Disposition: Standard PACU
[2022-04-23 08:30] LABS: Glucose, Whole Blood 71 mg/dL (60-115)
[2022-04-23 08:37] VITALS: BP 156/72; PULSE 85; RESP 18; TEMP 36.4; O2SAT 97
[2022-04-23] MEDS: Lactated Ringers 1,000 ML 100 ML IVCONT (08:55)
[2022-04-23] MEDS: Dextrose 5 % 100 ML 999 ML IV (08:57)
--- NOTE | 2022-04-23 09:18 | P.HPSUR_ITS ---
Pre-Procedural Eval Section A Date of Service: 04/23/22 Section B Chief Complaint: screening Details of Present Illness: hx of colon polyps Relevant Family History (Specify if Yes): No Relevant Social History: None Present Medications: see Short Stay Collaborative assessment Medical History: Significant History (Acute embolic stroke Cataract CKD (chronic kidney disease) stage 2, GFR 60-89 ml/min Colon cancer Diabetes mellitus Dyslipidemia Erectile dysfunction Family history of pancreatic cancer Fuchs' corneal dystrophy History of colon cancer Hypertension Hypertensive nephro sclerosis Neuropathy Obesity (BMI) History of Previous Operations: Relevant previous surgery/procedure and date(s) (History of colon resection (~04/20/19) History of colonoscopy (~03/15/19) History of esophagogastroduodenoscopy (EGD) Hx of cornea transplant Hx of left cataract extraction) Allergies: Allergies Allergy/AdvReac Type Severity Reaction Status Date / Time No Known Allergies Allergy Verified 04/09/22 15:27 [No Known Allergies*] Review of Systems Sugical H&P ROS: Negative: Constitution, Cardiovascular, Respiratory, Neurological, Psychiatric, Hem-Onc, Allergic/Immunologic, Gastrointestinal, Genitourinary, Musculoskeletal, Integumentary, Endocrine and Eyes/Ears/Nose/Throat Exam Surgical H&P Exam: Normal: HEENT, Normal: Heart, Normal: Lungs, Normal: Extremities, Normal: Abdomen, Normal: Skin and Normal: Neurological Plan Diagnosis/Plan: Unchanged I have reviewed the history and physical and performed a pertinent physical examination on my patient. No changes have occurred unless specified.
--- NOTE | 2022-04-23 09:26 | P.OP_ITS ---
Operative Note Operative Note Date of Service: 04/23/22 Narrative: Operative Information Procedure Description: Colonoscopy Indication: surveillance, hx of colon cancer Anesthesia: MAC COLONOSCOPY Instrument: Olympus variable stiffness pediatric scope 190L Colonoscopy Monitoring: Vital signs and clinical assessment, continuous EKG monitoring, Pulse oximetry, Carbon Dioxide monitoring and blood pressure monitoring were done throughout the procedure. Colon withdrawal time was 5 minutes. Procedure: The patient was placed in the left lateral decubitis position and pre-procedure medications were administered. After a digital rectal examination of the ano-rectum, the video colonoscope was inserted into the rectum and advanced through the colon to the cecum/TI. The colonoscope was slowly withdrawn in a retrograde panoramic fashion and the colon mucosa was carefully examined including a retroflexed view of the rectum. Findings and interventions are described below. Findings: Anasotmosis not reached due to poor? prep Transverse Colon -normal Descending Colon:normal Sigmoid Colon:? normal Rectum: Retroflexion not done Anorectum - normal Colon preparation: [place] Bowel Preparation Scale Right colon; n/a Transverse colon: 0 Left colon; 1 (0 = Unprepared colon segment with mucosa not seen due to solid stool that cannot be cleared. 1 = Portion of mucosa of the colon segment seen, but other areas of the colon segment not well seen due to staining, residual stool and/or opaque liquid. 2 = Minor amount of residual staining, small fragments of stool and/or opaque liquid, but mucosa of colon segment seen well. 3 = Entire mucosa of colon segment seen well with no residual staining, small fragments of stool or opaque liquid) Impression and Post Procedure Diagnosis: poor prep Plan: Repeat Colonoscopy in 6-12 months or earlier if clinically indicated would recommend 2 d of clear with suprep or colyte next time Above findings were reviewed with the patient and relevant handouts were provided if indicated.
[2022-04-23 09:51] VITALS: BP 90/54; PULSE 67; RESP 16; TEMP 36.1; O2SAT 95
[2022-04-23 10:06] VITALS: BP 142/68; PULSE 69; RESP 18; TEMP 36.1; O2SAT 97
== END 2022-04-23 11:21 | disposition home or self-care (01) ==
PROVIDERS: PCP Nurse Practitioner Family; Visit Provider Internal Medicine Gastroenterology
PROC: 0DJD8ZZ Inspection of Lower Intestinal Tract, Via Natural or Artificial Opening Endoscopic (ICD-10-PCS; CPT 45378; principal; 2022-04-23 09:00)
DX: Z12.11 Encounter for screening for malignant neoplasm of colon (principal); Z91.19 Patient's noncompliance with other medical treatment and regimen; Z85.038 Personal history of other malignant neoplasm of large intestine; Z90.49 Acquired absence of other specified parts of digestive tract; Z98.0 Intestinal bypass and anastomosis status; K58.1 Irritable bowel syndrome with constipation; G47.33 Obstructive sleep apnea (adult) (pediatric); R74.8 Abnormal levels of other serum enzymes; R80.1 Persistent proteinuria, unspecified; E11.65 Type 2 diabetes mellitus with hyperglycemia; E11.42 Type 2 diabetes mellitus with diabetic polyneuropathy; E11.22 Type 2 diabetes mellitus with diabetic chronic kidney disease; I12.9 Hypertensive chronic kidney disease with stage 1 through stage 4 chronic kidney disease, or unspecified chronic kidney disease; N18.2 Chronic kidney disease, stage 2 (mild); Z79.4 Long term (current) use of insulin; N52.9 Male erectile dysfunction, unspecified; E78.5 Hyperlipidemia, unspecified; Z79.82 Long term (current) use of aspirin; Z79.899 Other long term (current) drug therapy
CPT/HCPCS: G0105; 82947

== ENCOUNTER 2022-05-13 11:33 | Inpatient (IN) | payer MEDICARE, SELFPAY ==
--- NOTE | ~2022-05-13 | MR_ITS ---
MRI OF THE BRAIN WITHOUT IV CONTRAST INDICATION: Left eye droop and right arm numbness. COMPARISON: Brain MRI January 21, 2022. TECHNIQUE: Multiplanar multisequence MR imaging of the brain was obtained without IV contrast. FINDINGS: There is a punctate acute lacunar infarct within the central pontomesencephalic junction on image 12 of series 4. There is global cerebral volume loss and there is mild chronic microangiopathy. No mass effect and no hemorrhagic transformation. Chronic lacunar infarcts within the left vicki and the right cerebellum. There is no hydrocephalus, extra-axial surface collection, or herniation. The major flow voids at the skull base are preserved. There is no intracranial hemorrhage on the gradient recalled echo acquisition. The craniocervical junction is normal. Osseous marrow signal intensity is homogenous. The visualized soft tissues are unremarkable. There is mild mucosal thickening within the left maxillary sinus and the left frontal sinus. MR/MR head/brain wo con IMPRESSION: - There is a punctate acute lacunar infarct within the central pontomesencephalic junction on image 12 of series 4. No mass effect and no hemorrhagic transformation. - There is global cerebral volume loss and there is mild chronic microangiopathy. Chronic lacunar infarcts within the left vicki and the right cerebellum.
--- NOTE | ~2022-05-13 | CT_ITS ---
EXAMINATION: CTA OF THE HEAD AND NECK CLINICAL INFORMATION: Stroke. Evaluate vasculature. COMPARISON: Brain MRI from 05/13/2022. TECHNIQUE: Test bolus sequences followed by intravenous administration 70 mL of Omnipaque 350. Helical imaging was performed in the axial plane from the mediastinum to the skull vertex. Delayed postcontrast imaging of the head was also performed. The data was processed at the lead cytogenetic technologist's workstation for generation of MIP sequences. Three-dimensional volume rendered reformatted images were also generated at an offline 3-D workstation. Stenoses are assessed in accordance with NASCET criteria unless otherwise indicated. This CT examination was performed using dose optimization techniques as appropriate, variously including the following: *Automated exposure control *Adjustment of mA and/or kV according to patient size (this includes techniques or standardized protocols for targeted exams where dose is matched to indication/reason for exam; i.e. extremities or head) *Use of iterative reconstruction technique DLP: 2662 mGy-cm. FINDINGS: CT head: There is no evidence of acute intracranial hemorrhage or territorial infarction. There is no loss of llanes to white matter differentiation. No abnormal mass effect or midline shift is seen. No extra-axial fluid collections are identified. Diffuse generalized parenchymal volume loss noted with concordant ex vacuo dilatation of the ventricles. Small chronic infarcts in the right cerebellar hemisphere. Incidental prominent arachnoid granulation along the inner cortical table of the left occipital bone. There is no abnormal enhancement. No hydrocephalus evident. A punctate infarct described on the MR study is not well correlated on CT exam. There is a chronic infarct in the left aspect of the vicki. The osseous structures and soft tissues are normal. There is mucosal thickening in the left maxillary antrum and chronic appearing mucosal opacification of the left frontal sinus. CTA neck: The imaged aortic arch and origins of the great vessels are normal. The common carotid arteries are widely patent. The carotid bifurcations are patent. The cervical internal carotid arteries are normal. The vertebral arteries opacify normally and are of normal caliber. The soft tissues of the neck are unremarkable. Multilevel cervical spondylosis noted with a rightward curvature. Mild subsegmental atelectasis noted in the lungs. CTA head: Atherosclerotic wall calcifications result in a moderate stenosis of the proximal intradural right vertebral artery and mild stenotic narrowing of the intradural left vertebral artery. The basilar artery is normal. The posterior cerebral arteries are widely patent. Atherosclerotic wall calcifications result in focal moderate to severe stenosis in the anterior genu of the right internal carotid artery and a focal moderate stenosis in the supraclinoid left ICA. The LUIZ and MCA vascular complexes bilaterally are normal. The venous sinuses opacify normally. CT/CT angio head neck IMPRESSION: Mild atherosclerotic wall calcifications at the carotid bifurcations without stenosis. Remainder of the imaged cervical vasculature appears normal. Atherosclerotic disease resulting in a moderate stenosis in the proximal intradural right vertebral artery. Mild focal stenotic narrowing of the intracranial left vertebral artery. Atheromatous disease with moderate to severe stenosis in the anterior genu of the cavernous segment of the right ICA. Moderate stenosis in the supraclinoid left ICA. Imaging findings reported to Dr. Anaya at 11:12 AM on 05/14/2022.
[2022-05-13 11:35] VITALS: BP 190/94; PULSE 85; RESP 18; TEMP 37.2; O2SAT 96; BMI 28.7
--- NOTE | 2022-05-13 11:39 | ECG_ITS ---
Test Reason : neuro symptoms Blood Pressure : / mmHG Vent. Rate : 085 BPM Atrial Rate : 085 BPM P-R Int : 146 ms QRS Dur : 074 ms QT Int : 380 ms P-R-T Axes : 028 -29 045 degrees QTc Int : 452 ms Normal sinus rhythm with sinus arrhythmia Septal infarct (cited on or before 06-APR-2019) Inferior infarct (cited on or before 06-APR-2019) Abnormal ECG When compared with ECG of 20-JAN-2022 10:10, Premature atrial complexes are no longer Present Referred By: Generic ED Physician Electronically Signed By:BEE SINGH
[2022-05-13 12:05] LABS: MANUAL DIFF FLAG NO
--- NOTE | 2022-05-13 12:09 | ED_ITS ---
HPI - Neuro Symptoms/Deficit General Chief Complaint: Neuro Symptoms/Deficit Stated Complaint: Stroke? R side numbness Time Seen by Provider: 05/13/22 12:07 Source: patient History of Present Illness HPI Narrative: On January 15 he had a stroke that affected the right side of his body. Patient had mild half-way effects. Patient stated that his left eye was drooping on Friday, on Friday he had right sided pain shoulder pain with some numbness no weakness. Summary is pain in the right shoulder but droop in the left eye. Onset (ago): day(s) Location: left face and right arm History of same: Yes (stroke) Severity: mild Quality: numb Relieving factors: none Exacerbating factors: none Context: gradual onset Associated symptoms: denies other symptoms Treatments Prior to Arrival: none Related Data Home Medications Medication Instructions Recorded Confirmed pramipexole 0.5 mg tablet (Mirapex) 0.5 mg PO BEDTIME 07/10/20 05/13/22 blood sugar diagnostic #10 ea 07/28/20 03/01/22 aspirin 81 mg tablet,delayed 162 mg PO DAILY 05/01/21 05/13/22 release calcium carbonate 600 mg-vitamin 1 tab PO DAILY 05/01/21 05/13/22 D3 5 mcg (200 unit) tablet multivitamin 1 tab PO DAILY 05/01/21 05/13/22 omega-3 fatty acids 1,000 mg PO DAILY 05/01/21 05/13/22 blood-glucose meter (OneTouch 09/21/21 03/01/22 Ultra2 Meter) lisinopril 20 mg tablet 1 tab PO DAILY 05/13/22 05/13/22 Previous Rx's Medication Instructions Recorded metformin 1,000 mg tablet 1,000 mg PO BID #180 tabs 07/05/21 lancets 33 gauge #100 ea 10/03/21 empagliflozin 25 mg tablet 25 mg PO QAM #30 tabs 12/27/21 (Jardiance) blood sugar diagnostic (Oneuch #100 ea 12/28/21 Ultra Test strips) atorvastatin 20 mg tablet 40 mg PO DAILY #90 tabs 01/25/22 insulin degludec 200 unit/mL (3 50 unit (0.25 mL) subcut DAILY 30 02/07/22 mL) subcutaneous pen (Treba days #9 mL FlexTouch U-200 insulin) pioglitazone 30 mg tablet 30 mg PO DAILY #90 tabs 03/20/22 Allergies Allergy/AdvReac Type Severity Reaction Status Date / Time No Known Allergies Allergy Verified 04/09/22 15:27 [No Known Allergies*] Review of Systems Constitutional: Constitutional: Reports no additional constitutional complaints Eyes: Eyes: Reports no additional eye complaints ENT: Denies dizziness Cardiovascular: Cardiovascular: Reports no additional cardiovascular comp laints Respiratory: Respiratory: Reports as per HPI Gastrointestinal: Gastrointestinal: Reports no additional gastrointestinal complaints Musculoskeletal: Musculoskeletal: Reports no additional musculoskeletal complaints Integumentary/Breasts: Skin/Breast: Denies rash Neurologic: Reports system reviewed and no additional complaints, except as documented, Denies dizziness and Denies Sensory deficit (Neuro) Psychiatric: Psychiatric: Denies anxiety [facility] Past Medical History Medical History (Updated 05/13/22 @ 17:10 by Kiesha Anaya NP) Acute embolic stroke Cataract CKD (chronic kidney disease) stage 2, GFR 60-89 ml/min Colon cancer Diabetes mellitus Dyslipidemia Erectile dysfunction Fuchs' corneal dystrophy Hypertension Hypertensive nephrosclerosis Neuropathy Obesity (BMI 30.0-34.9) Persistent proteinuria RLS (restless legs syndrome) Sleep apnea Type 2 diabetes mellitus with diabetic polyneuropathy Xerosis cutis Surgical History History of colon resection (~04/20/19) History of colonoscopy (~03/15/19) History of esophagogastroduodenoscopy (EGD) Hx of cornea transplant Hx of left cataract extraction Family History Family History Mother History of pancreatic cancer Father No problems noted. Brother Diabetes Maternal Grandmother Diabetes Social History Social History Household Members: None Housing: Condominium Are you a primary college and career counselor to a significant other at home: No Do you presently have visiting nurse or other home services: No Alcohol intake: never Patient Tobacco Use Status: Never used Tobacco e-Cigarette/Vaping Use: Never Used Second Hand Smoke Exposure: No Use of substances other than those prescribed or required for medical reasons: No Advance Directives: Yes Advance Directives Information Provided: No Advance Directives on File: No service: No Current occupational status: retired Physical Exam Vital Signs: Vital Signs: Last Vital Signs Temp 98.5 F 05/13/22 18:00 Pulse 80 05/13/22 18:00 Resp 14 05/13/22 18:00 BP 155/72 H 05/13/22 18:00 Pulse Ox 95 05/13/22 18:00 O2 Del Method 05/13/22 18:00 BMI result Body Mass Index 28.7 Const: General: healthy appearing Nutritional Appearance: average body habitus Orientation/consciousness: oriented to person and patient oriented x3 Limitations: no limitations HEENT: Head: Yes normal to inspection Ears: external ears normal General nose exam: Normal external nose present Mouth: Normal oral and palatal mucosa present and oropharynx normal Throat: Yes posterior oropharynx normal Eyes: General: appearance normal, both eyes and all related structures Neck: Other: supple Neck: Yes normal visual inspection Chest: Chest palpation & inspection: normal inspection of the chest Resp: Auscultation: clear to auscultation bilaterally Cardio: Jugular venous distension: no JVD Rate: regular rate Rhythm: regular rhythm Heart sounds: S1 normal heart sound present and S2 normal heart sound present GI: Inspection: Yes normal to inspection Palpation (GI): Soft to palpation, nontender and No hepatosplenomegaly present Auscultation: normal bowel sounds : General: Yes no CVA tenderness Back/Spine/Pelvis: Back: no CVA tenderness Skin: General skin exam: no rashes or lesions noted Neuro: Other: small left lid lag, subtle findings of old right CVA. Asside from the lid lag the neuro is baseline General: oriented to person and patient oriented x3 Sensory Exam: No Sensory deficit (Neuro) Extrem: General: Yes normal to inspection Psych: Appearance: grossly normal Course Reevaluation(s) Reevaluation #1: Discussed with Dr. Sanchez will start plavix and admit the patient Time: 16:33 MDM - Neuro Symptoms/Deficit Lab Data Result diagrams: 05/13/22 12:01 05/13/22 13:44 Labs: Lab Results 05/13/22 05/13/22 05/13/22 Range/Units 12:01 12:01 12:01 WBC 8.0 (4.8-10.8) X10*3/uL RBC 6.02 H (4.60-5.80) X10*6/uL Hgb 18.4 H (14.0-18.0) g/dl Hct 53.0 H (42.0-52.0) % MCV 88.0 (80.0-98.0) fL MCH 30.6 (27.0-33.0) pg MCHC 34.7 (31.0-36.0) g/dl RDW 13.5 (11.0-16.0) % Plt Count 150 L (160-400) X10*3/uL MPV 12.1 (9.4-12.4) fL Immature Gran % (Auto) 0.4 (0.0-0.4) % Neut % (Auto) 78.5 H (45-73) % Lymph % (Auto) 13.1 L (20-40) % [place] % (Auto) 6.7 (2-11) % Eos % (Auto) 0.8 (0-4) % Baso % (Auto) 0.5 (0-2) % Lymph # (Auto) 1.0 L (1.2-4.9) X10*3/uL [place] # (Auto) 0.5 (0.1-1.2) X10*3/uL Eos # (Auto) 0.1 (0.0-0.4) X10*3/uL Baso # (Auto) 0.0 (0.0-0.2) X10*3/uL Abs Immat Gran (auto) 0.03 (0.00-0.03) X10*3/uL Absolute Neuts (auto) 6.3 (2.0-8.3) x10*3/uL Absolute Nucleated RBC 0.000 (0.0-0.012) X10*3/uL Nucleated RBC % (auto) 0.0 (0.0-0.2) /100WBC PT 12.2 (10.0-13.1) SEC INR 1.1 (0.9-1.1) Sodium 143 (135-145) mmol/L Potassium 4.3 (3.3-5.1) mmol/L Chloride 106 (96-108) mmol/L Carbon Dioxide 22 (22-29) mmol/L Anion Gap 19 (12-20) BUN 18 H (9-16) mg/dL Creatinine 0.97 (0.5-1.4) mg/dL Estim Creat Clear Calc 81.4 Estimated GFR > 60 Random Glucose 170 H D (60-115) mg/dL Calcium 10.2 D (8.4-10.2) mg/dL Total Bilirubin 1.3 H (0.0-1.0) mg/dL AST 17 (5-37) U/L ALT 19 (0-40) U/L Alkaline Phosphatase 88 (39-117) U/L Troponin I High Sens (<3.5-35.0) ng/L Total Protein 7.5 (6.5-8.0) g/dL Albumin 4.7 (3.5-5.0) g/dL Urine Color Urine Appearance Urine pH (5.0-8.0) Ur Specific [place] (1.005-1.025) Urine Protein (Neg-Trace) mg/dL Urine Glucose (UA) (Negative) mg/dL Urine Ketones (Negative) mg/dL Urine Blood (Negative) Urine Nitrite (Negative) Ur Leukocyte Esterase (Negative) Urine RBC (0-2) /HPF Urine WBC (0-5) /HPF Ur Squamous Epith Cells (0-2) /HPF Urine Bacteria (None Seen) Hyaline Casts (0-2) /LPF COVID-19 (JORDIN) (Negative) COVID-19 Clin Com 05/13/22 05/13/22 05/13/22 Range/Units 12:01 12:01 13:44 WBC (4.8-10.8) X10*3/uL RBC (4.60-5.80) X10*6/uL Hgb (14.0-18.0) g/dl Hct (42.0-52.0) % MCV (80.0-98.0) fL MCH (27.0-33.0) pg MCHC (31.0-36.0) g/dl RDW (11.0-16.0) % Plt Count (160-400) X10*3/uL MPV (9.4-12.4) fL Immature Gran % (Auto) (0.0-0.4) % Neut % (Auto) (45-73) % Lymph % (Auto) (20-40) % [place] % (Auto) (2-11) % Eos % (Auto) (0-4) % Baso % (Auto) (0-2) % Lymph # (Auto) (1.2-4.9) X10*3/uL [place] # (Auto) (0.1-1.2) X10*3/uL Eos # (Auto) (0.0-0.4) X10*3/uL Baso # (Auto) (0.0-0.2) X10*3/uL Abs Immat Gran (auto) (0.00-0.03) X10*3/uL Absolute Neuts (auto) (2.0-8.3) x10*3/uL Absolute Nucleated RBC (0.0-0.012) X10*3/uL Nucleated RBC % (auto) (0.0-0.2) /100WBC PT (10.0-13.1) SEC INR (0.9-1.1) Sodium 142 (135-145) mmol/L Potassium 4.8 (3.3-5.1) mmol/L Chloride 105 (96-108) mmol/L Carbon Dioxide 24 (22-29) mmol/L Anion Gap 18 (12-20) BUN 18 H (9-16) mg/dL Creatinine 1.03 (0.5-1.4) mg/dL Estim Creat Clear Calc 76.6 Estimated GFR > 60 Random Glucose 128 H (60-115) mg/dL Calcium 9.8 (8.4-10.2) mg/dL Total Bilirubin (0.0-1.0) mg/dL AST (5-37) U/L ALT (0-40) U/L Alkaline Phosphatase (39-117) U/L Troponin I High Sens < 3.5 (<3.5-35.0) ng/L Total Protein (6.5-8.0) g/dL Albumin (3.5-5.0) g/dL Urine Color Urine Appearance Urine pH (5.0-8.0) Ur Specific [place] (1.005-1.025) Urine Protein (Neg-Trace) mg/dL Urine Glucose (UA) (Negative) mg/dL Urine Ketones (Negative) mg/dL Urine Blood (Negative) Urine Nitrite (Negative) Ur Leukocyte Esterase (Negative) Urine RBC (0-2) /HPF Urine WBC (0-5) /HPF Ur Squamous Epith Cells (0-2) /HPF Urine Bacteria (None Seen) Hyaline Casts (0-2) /LPF COVID-19 (JORDIN) Negative (Negative) COVID-19 Clin Com See Note 05/13/22 05/13/22 Range/Units 16:50 17:13 WBC (4.8-10.8) X10*3/uL RBC (4.60-5.80) X10*6/uL Hgb (14.0-18.0) g/dl Hct (42.0-52.0) % MCV (80.0-98.0) fL MCH (27.0-33.0) pg MCHC (31.0-36.0) g/dl RDW (11.0-16.0) % Plt Count (160-400) X10*3/uL MPV (9.4-12.4) fL Immature Gran % (Auto) (0.0-0.4) % Neut % (Auto) (45-73) % Lymph % (Auto) (20-40) % [place] % (Auto) (2-11) % Eos % (Auto) (0-4) % Baso % (Auto) (0-2) % Lymph # (Auto) (1.2-4.9) X10*3/uL [place] # (Auto) (0.1-1.2) X10*3/uL Eos # (Auto) (0.0-0.4) X10*3/uL Baso # (Auto) (0.0-0.2) X10*3/uL Abs Immat Gran (auto) (0.00-0.03) X10*3/uL Absolute Neuts (auto) (2.0-8.3) x10*3/uL Absolute Nucleated RBC (0.0-0.012) X10*3/uL Nucleated RBC % (auto) (0.0-0.2) /100WBC PT (10.0-13.1) SEC INR (0.9-1.1) Sodium (135-145) mmol/L Potassium (3.3-5.1) mmol/L Chloride (96-108) mmol/L Carbon Dioxide (22-29) mmol/L Anion Gap (12-20) BUN (9-16) mg/dL Creatinine (0.5-1.4) mg/dL Estim Creat Clear Calc Estimated GFR Random Glucose (60-115) mg/dL Calcium (8.4-10.2) mg/dL Total Bilirubin (0.0-1.0) mg/dL AST (5-37) U/L ALT (0-40) U/L Alkaline Phosphatase (39-117) U/L Troponin I High Sens (<3.5-35.0) ng/L Total Protein (6.5-8.0) g/dL Albumin (3.5-5.0) g/dL Urine Color Yellow Urine Appearance Clear Urine pH 7.5 (5.0-8.0) Ur Specific [place] >= 1.030 H (1.005-1.025) Urine Protein 30 (1+) H (Neg-Trace) mg/dL Urine Glucose (UA) >=1000 H (Negative) mg/dL Urine Ketones 40 (Negative) mg/dL Urine Blood Negative (Negative) Urine Nitrite Negative (Negative) Ur Leukocyte Esterase Negative (Negative) Urine RBC 0-2 (0-2) /HPF Urine WBC 6-10 H (0-5) /HPF Ur Squamous Epith Cells 0-2 (0-2) /HPF Urine Bacteria 4+ (None Seen) Hyaline Casts 0-2 (0-2) /LPF COVID-19 (JORDIN) Negative (Negative) COVID-19 Clin Com See Note Imaging Data MRI brain: Radiologist's impression: FINDINGS: There is a punctate acute lacunar infarct within the central pontomesencephalic junction on image 12 of series 4. There is global cerebral volume loss and there is mild chronic microangiopathy. No mass effect and no hemorrhagic transformation. Chronic lacunar infarcts within the left vicki and the right cerebellum. There is no hydrocephalus, extra-axial surface collection, or herniation. The major flow voids at the skull base are preserved. There is no intracranial hemorrhage on the gradient recalled echo acquisition. The craniocervical junction is normal. Osseous marrow signal intensity is homogenous. The visualized soft tissues are unremarkable. There is mild mucosal thickening within the left maxillary sinus and the left frontal sinus. MR/MR head/brain wo con IMPRESSION: - There is a punctate acute lacunar infarct within the central pontomesencephalic junction on image 12 of series 4. No mass effect and no hemorrhagic transformation. ? - There is global cerebral volume loss and there is mild chronic microangiopathy. Chronic lacunar infarcts within the left vicki and the right cerebellum. Discharge Plan Discharge Clinical Impression: Stroke, Cerebrovascular accident Patient Disposition: Admitted As Inpatient
[2022-05-13 12:15] LABS: Basophils Percent Auto 0.5 % (0-2); Eosinophils Absolute Auto 0.1 X10*3/uL (0.0-0.4); Eosinophils Percent Auto 0.8 % (0-4); Hemoglobin 18.4 g/dl (14.0-18.0); Imm Gran Abs Auto 0.03 X10*3/uL (0.00-0.03); Imm Gran Pct Auto 0.4 % (0.0-0.4); Lymphocytes Percent Auto 13.1 % (20-40); Mean Corpuscular HGB Conc 34.7 g/dl (31.0-36.0); Mean Corpuscular Hemoglobin 30.6 pg (27.0-33.0); Mean Platelet Volume 12.1 fL (9.4-12.4); Monocytes Absolute Auto 0.5 X10*3/uL (0.1-1.2); Monocytes Percent Auto 6.7 % (2-11); Neutrophils Absolute Auto 6.3 x10*3/uL (2.0-8.3); Neutrophils Percent Auto 78.5 % (45-73); Platelet Count 150 X10*3/uL (160-400); Red Blood Count 6.02 X10*6/uL (4.60-5.80); Red Cell Distribution Width 13.5 % (11.0-16.0)
--- NOTE | 2022-05-13 12:15 | ECG_ITS ---
Test Reason : neuro symptoms Blood Pressure : / mmHG Vent. Rate : 082 BPM Atrial Rate : 082 BPM P-R Int : 156 ms QRS Dur : 072 ms QT Int : 388 ms P-R-T Axes : 034 -25 035 degrees QTc Int : 453 ms Normal sinus rhythm with sinus arrhythmia Inferior infarct (cited on or before 06-APR-2019) Abnormal ECG When compared with ECG of 13-MAY-2022 11:41, Criteria for Septal infarct are no longer Present Referred By: Chas Diallo Electronically Signed By:BEE SINGH
[2022-05-13 12:17] LABS: INTERNATIONAL NORM RATIO 1.1 (0.9-1.1); Prothrombin Time 12.2 SEC (10.0-13.1)
[2022-05-13 12:19] VITALS: BP 150/85; PULSE 82; RESP 12; TEMP 37.3; O2SAT 95
[2022-05-13 12:23] LABS: Alanine Aminotransferase 19 U/L (0-40); Albumin Level 4.7 g/dL (3.5-5.0); Alkaline Phosphatase 88 U/L (39-117); Anion Gap 19 (12-20); Aspartate Amino Transferase 17 U/L (5-37); Bilirubin Total 1.3 mg/dL (0.0-1.0); Blood Urea Nitrogen 18 mg/dL (9-16); COVID-19 Test Negative (Negative); Calcium 10.2 mg/dL (8.4-10.2); Carbon Dioxide 22 mmol/L (22-29); Chloride 106 mmol/L (96-108); Creatinine Clr Calc Pharmacy 81.4; Estimated Glomerular Filt Rate > 60; Glucose Random 170 mg/dL (60-115); Potassium 4.3 mmol/L (3.3-5.1); Sodium 143 mmol/L (135-145); Total Protein 7.5 g/dL (6.5-8.0)
[2022-05-13 12:27] LABS: Troponin-I High Sensitivity < 3.5 ng/L (<3.5-35.0)
[2022-05-13 14:08] LABS: Anion Gap 18 (12-20); Blood Urea Nitrogen 18 mg/dL (9-16); Calcium 9.8 mg/dL (8.4-10.2); Carbon Dioxide 24 mmol/L (22-29); Chloride 105 mmol/L (96-108); Creatinine Clr Calc Pharmacy 76.6; Estimated Glomerular Filt Rate > 60; Glucose Random 128 mg/dL (60-115); Potassium 4.8 mmol/L (3.3-5.1); Sodium 142 mmol/L (135-145)
--- NOTE | 2022-05-13 14:37 | PC.NURSE ---
passed swallow eval with stroke eddi mercado. pt to mri at this time
[2022-05-13 16:00] VITALS: BP 171/88; PULSE 85; RESP 14; TEMP 36.7; O2SAT 97
[2022-05-13] MEDS: Clopidogrel Bisulfate 75 MG TABLET PO (16:43)
[2022-05-13] MEDS: Acetaminophen 325 MG TABLET 975 MG PO (16:43)
--- NOTE | 2022-05-13 16:55 | MHC.STROKE ---
Addendum entered by Lakshmi Rolle RN 05/14/22 14:59: clarification on Statin Dose, it was decreased from 40mg to 20mg due to patients request. Intensive statin contraindicated. Addendum entered by Lakshmi Rolle RN 05/14/22 14:43: CLARIFICATION ON LKW, HE SAID HE WENT TO BED ON FRIDAY NIGHT 05/11/22 AT AROUND 2130, HE WOKE FRIDAY MORNING AT 0800 WITH SYMPTOMS. LKW 05/11/22 2130, DISCOVERY OF SYMPTOMS 05/12/22 0800. HE CALLED HIS PROVIDER AND WAS TOLD TO COME TO THE ED. ALSO HE RECEIVES OP PT AT CORE IN [place], NOT AT HOME. Addendum entered by Lakshmi Rolle RN 05/14/22 11:24: I ROUNDED ON PATIENT TODAY, HE HAD NO COMPLAINTS, HE WAS GETTING HIS ECHOCARDIOGRAM EARLIER, I REQUESTED THE REPORT FOR HIS CTA H/N, DR CONNOR SEES HIM IN THE OFFICE. WE REVIEWED HIS CASE THIS MORNING AND SEE HAS SEEN THE PATIENT COMPLETED CONSULT PENDING. I HAVE ENCOURAGED FLUIDS S/P CTA DUE TO THE ELEVATED BUN, I REVIEWED THE PLAN OF CARE. HE IS BACK TO HIS BASELINE. HE DOES HAVE A HOME PT VISIT TOMORROW AND HE IS SEEING SOMEONE ON FRIDAY FOR HIS SLEEP APNEA. I REINFORCED THE STROKE EDUCATION AN ANSWERED HIS QUESTIONS. Original Note: 05/13/22 WALK-IN AT 1133, C/O RIGHT ARM WEAKNESS/NUMBNESS LEFT EYE DROOP THAT STARTED 2 DAYS PRIOR 05/11/22, NO EXACT TIME. PATIENT KNOWN TO STROKE SERVICE FROM PRIOR STROKE ON 01/15/22 (ADMITTED ON 01/20/22, +MRI LEFT DAVID ON 01/21/22). CASE REVIEWED WITH DR. GALLOWAY, OUT OF THE WINDOW FOR TPA-ALTEPLASE THEREFORE MRI WAS ORDERED, HE PASSED SWALLOW SCREEN. MRI CAME BACK + NEW CENTRAL DAVID ISCHEMIC STROKE. NIHSS = 2 FOR DROOP AND NUMBNESS. I INITIATED STROKE EDUCATION AND REVIEWED HIS PLAN OF CARE WITH HIM. HE WILL BE ADMITTED. HE IS RECEIVING PT AT HOME, S/P PRIOR STROKE AND REHAB STAY AT [facility]. DR. GALLOWAY DID SPEAK WITH DR MINDY PANDYA ADDED. I WILL CONTINUE TO FOLLOW.
--- NOTE | 2022-05-13 17:09 | PM.IMHP ---
History of Present Illness Date of Service: 05/13/22 Chief Complaint: Facial droop 67-year-old man presented to the ER with left eyelid lag and right shoulder numbness that started approximately 48 hours ago. Apparently the patient's friend noticed that his left eyelid was drooping. The patient denies chest pain, shortness breath, nausea, vomiting, diarrhea, recent illness or travel. He does have a history of a stroke and was [facility] to [facility] earlier this year. Labs are within acceptable limits although he is noted to have polycythemia and H&H is elevated 18.453.0. Blood pressure was also noted to be elevated with highest reading of 190/94. In the ER, MRI was obtained which showed a punctate acute lacunar infarct without mass effect or hemorrhagic conversion. He was given a dose of Plavix in the ER. To be admitted for further management and treatment of acute stroke Review of Systems Review of Systems: Denies any recent fever chills or decrease in appetite respiratory denies any shortness of breath coverage production cardiovascular denies chest gastrointestinal denies any dysphagia abdominal pain nausea vomiting or diarrhea genitourinary denies any dysuria frequency or hematuria musculoskeletal denies any joint pain or swelling neuropsych denies any weakness or seizures all other systems reviewed are negative Right shoulder pain [facility] Medical History (Updated 05/13/22 @ 17:10 by Kiesha Anaya NP) Acute embolic stroke Cataract CKD (chronic kidney disease) stage 2, GFR 60-89 ml/min Colon cancer Diabetes mellitus Dyslipidemia Erectile dysfunction Fuchs' corneal dystrophy Hypertension Hypertensive nephrosclerosis Neuropathy Obesity (BMI 30.0-34.9) Persistent proteinuria RLS (restless legs syndrome) Sleep apnea Type 2 diabetes mellitus with diabetic polyneuropathy Xerosis cutis Family History Mother History of pancreatic cancer Father No problems noted. Brother Diabetes Maternal Grandmother Diabetes Surgical History History of colon resection (~04/20/19) History of colonoscopy (~03/15/19) History of esophagogastroduodenoscopy (EGD) Hx of cornea transplant Hx of left cataract extraction Social History Household Members: None Housing: Condominium Are you a primary healthcare market consultant to a significant other at home: No Do you presently have visiting nurse or other home services: No Alcohol intake: never Patient Tobacco Use Status: Never used Tobacco e-Cigarette/Vaping Use: Never Used Second Hand Smoke Exposure: No Use of substances other than those prescribed or required for medical reasons: No Advance Directives: Yes Advance Directives Information Provided: No Advance Directives on File: No Advance Directives Date on File: 05/14/22 service: No Current occupational status: retired [employer] Allergies Allergy/AdvReac Type Severity Reaction Status Date / Time No Known Allergies Allergy Verified 04/09/22 15:27 [No Known Allergies*] Active Medications: Current Medications Pharmacy Consult (Consult Rx Perform Med Rec) 1 each MISCELLANE ONCE PRN PRN Reason: Consult order Home Medications Medication Instructions Recorded Confirmed Last Taken Type pramipexole 0.5 mg tablet (Mirapex) 0.5 mg PO BEDTIME 07/10/20 05/13/22 1 Week Ago History ~01/13/22 blood sugar diagnostic #10 ea 07/28/20 03/01/22 Unknown History aspirin 81 mg tablet,delayed 162 mg PO DAILY 05/01/21 05/13/22 05/13/22 History release calcium carbonate 600 mg-vitamin 1 tab PO DAILY 05/01/21 05/13/22 05/13/22 History D3 5 mcg (200 unit) tablet multivitamin 1 tab PO DAILY 05/01/21 05/13/22 05/13/22 History omega-3 fatty acids 1,000 mg PO DAILY 05/01/21 05/13/22 05/13/22 History blood-glucose meter (OneTouch 09/21/21 03/01/22 Unknown History Ultra2 Meter) lisinopril 20 mg tablet 1 tab PO DAILY 05/13/22 05/13/22 05/13/22 History Physical Exam Vital Signs and Narrative: Vital Signs: Last Vital Signs Temp 98.1 F 05/13/22 16:00 Pulse 85 05/13/22 16:00 Resp 14 05/13/22 16:00 BP 171/88 H 05/13/22 16:00 Pulse Ox 97 05/13/22 16:00 O2 Del Method 05/13/22 16:00 BMI result Body Mass Index 28.7 Appearing in no acute distress head is normocephalic atraumatic eyes pupils are PERRLA sclera is anicteric mouth throat mucous membranes are intact and moist neck is supple no lymphadenopathy, no JVD noted lung sounds are clear to auscultation heart regular rate rhythm, clear S1, S2 positive bowel sounds, abdomen is soft, nontender neuro patient is alert x3, left eye mild droop, strength UE and LE 4/5 Results Labs CBC and Chem 7: 05/14/22 05:33 05/14/22 05:33 Labs: Laboratory Results - last 24 hr 05/13/22 05/13/22 05/13/22 12:01 12:01 12:01 MCV 88.0 MCH 30.6 MCHC 34.7 RDW 13.5 Plt Count 150 L MPV 12.1 Immature Gran % (Auto) 0.4 Neut % (Auto) 78.5 H Lymph % (Auto) 13.1 L [place] % (Auto) 6.7 Eos % (Auto) 0.8 Baso % (Auto) 0.5 Lymph # (Auto) 1.0 L [place] # (Auto) 0.5 Eos # (Auto) 0.1 Baso # (Auto) 0.0 Abs Immat Gran (auto) 0.03 Absolute Neuts (auto) 6.3 Absolute Nucleated RBC 0.000 Nucleated RBC % (auto) 0.0 PT 12.2 INR 1.1 Anion Gap 19 Estim Creat Clear Calc 81.4 Estimated GFR > 60 Random Glucose 170 H D Calcium 10.2 D Total Bilirubin 1.3 H AST 17 ALT 19 Alkaline Phosphatase 88 Total Protein 7.5 Albumin 4.7 COVID-19 (JORDIN) COVID-19 Clin Com 05/13/22 05/13/22 12:01 13:44 MCV MCH MCHC RDW Plt Count MPV Immature Gran % (Auto) Neut % (Auto) Lymph % (Auto) [place] % (Auto) Eos % (Auto) Baso % (Auto) Lymph # (Auto) [place] # (Auto) Eos # (Auto) Baso # (Auto) Abs Immat Gran (auto) Absolute Neuts (auto) Absolute Nucleated RBC Nucleated RBC % (auto) PT INR Anion Gap 18 Estim Creat Clear Calc 76.6 Estimated GFR > 60 Random Glucose 128 H Calcium 9.8 Total Bilirubin AST ALT Alkaline Phosphatase Total Protein Albumin COVID-19 (JORDIN) Negative COVID-19 Clin Com See Note Imaging Radiologist's Impressions: Impressions Brain MRI 05/13/22 15:00 IMPRESSION: - There is a punctate acute lacunar infarct within the central pontomesencephalic junction on image 12 of series 4. No mass effect and no hemorrhagic transformation. - There is global cerebral volume loss and there is mild chronic microangiopathy. Chronic lacunar infarcts within the left vicki and the right cerebellum. Assessment and Plan (1) Cerebrovascular accident: Status: Acute Plan 67-year-old man admitted for stroke with history of lacunar and cerebellar stroke in January of this year Stroke MRI, CTA head and neck, echo pending PT/OT Neurology consultation Monitor on telemetry Continue aspirin, statin, add Plavix Hypertension Continue lisinopril Diabetes mellitus Sliding scale, ADA diet Polycythemia Follow CBC Obstructive sleep apnea DVT prophylaxis with heparin Attending Dr. Conner Full code Patient may require 2 midnights in the hospital for further workup of acute stroke pending further evaluation from neurologist Quality Stroke Does the patient have a stroke diagnosis?: No VTE Prior VTE?: No VTE Risk Level:: Medical - moderate - high VTE Device Contraindication: Treatment Not Indicated VTE Drug Contraindication: N/A - Med Ordered
[2022-05-13 17:18] LABS: Appearance Urine Clear; Color Urine Yellow; Glucose Urine UA >=1000 mg/dL (Negative); Leukocyte Esterase Urine Negative (Negative); Nitrite Urine Negative (Negative); PH 7.5 (5.0-8.0); Specific Gravity - Urine >= 1.030 (1.005-1.025); Urine Blood Negative (Negative); Urine Ketones 40 mg/dL (Negative); Urine Protein 30 (1+) mg/dL (Neg-Trace)
[2022-05-13 17:20] LABS: Bacteria Urine 4+ (None Seen); Hyaline Casts Urine 0-2 /LPF (0-2); RBC Urine 0-2 /HPF (0-2); Squamous Epithelial Cell Urine 0-2 /HPF (0-2); UACC Culture Trigger YES
--- NOTE | 2022-05-13 17:35 | PM.EVENT ---
Event Note Date of Service: 05/13/22 Event Note: admission note Date of service 05/13/2022 the patient was seen and evaluated with Kiesha Anaya NP. I agree with her note, assessment and plan with the following. 67 years old male with PMH of CVA, DAVIAN, type 2 diabetes, HTN among others who presents to the hospital with right-sided numbness and weakness. Evaluated in the emergency with MRI which showed evidence of new acute stroke that is out of window. Discussed with neurology who recommended starting Plavix on top of aspirin. Will be admitted for further evaluation in addition workup for acute stroke. Rest of evaluations by DESCRIPTIVE CATALOG LIBRARIAN note.
[2022-05-13 17:40] LABS: COVID-19 Test Negative (Negative); IDNOW Serial# 16C4AD1C
[2022-05-13 18:00] VITALS: BP 155/72; PULSE 80; RESP 14; TEMP 36.9; O2SAT 95
[2022-05-13] MEDS: iohexoL 350 MG/ML 100 ML INFUS..BTL IV (18:30)
[2022-05-13 20:00] VITALS: BP 150/70; PULSE 75; RESP 17; TEMP 37; O2SAT 97
--- NOTE | 2022-05-13 21:40 | MHC.CM.PN ---
Addendum entered by Mony Joya 05/13/22 21:49: HCP/brother Lopez Frost ([phone]). Original Note: IMM 05/13. CM met with admitted patient with bed assignment pending. Pt lives alone. Has DM testing supplies. Currently has PT services outpatient at [facility] [place] in [place]. Pt had a stroke in 01/2022, had rehab at [facility] and then OP PT. New onset Acute Punctate Lacunar Stroke. Pt ambulating freely. PT/OT pending. Some weakness on R side. Fully vax/boosted Pfizer x3 and Moderna x1. Pt has concerns that previous stroke was secondary to vaccine, as it occurred days after he received his final booster. HCP on file. Brothers, Lopez and Zen are listed as first and second, with nephew Marco A listed Third. Pt intially told CM that Marco A Frost ([phone]) was his HCP, as he lives locally. Pt does not want to change existing document on file. D/C plan: Home with outpatient PT continuation. Pt is aware that he will have a new PT assessment during his hospitalization. Patient will arrange transportation home from family. CM will follow for d/c planning.
[2022-05-13] MEDS: Pramipexole Di-HCL 0.25 MG TABLET 0.5 MG PO (22:41)
--- NOTE | 2022-05-14 01:57 | PC.NURSE ---
report to Liz BOLANOS
[2022-05-14 02:43] VITALS: BP 168/79; PULSE 88; RESP 18; TEMP 36.4; O2SAT 97
[2022-05-14 02:55] VITALS: BMI 28.5
[2022-05-14] MEDS: Acetaminophen 325 MG TABLET 650 MG PO (03:20)
[2022-05-14 04:00] VITALS: BP 137/65; PULSE 90; RESP 18; TEMP 36.6; O2SAT 92
[2022-05-14] MEDS: oxyCODONE HCl Immed Release 5 MG TABLET PO (04:26)
--- NOTE | 2022-05-14 04:52 | PC.NURSE ---
Pt c/o 12/23 right shoulder pain after receiving hot packs and Tylenol. Pillow also given to support shoulder and Dr called for pain medication. Oxycodone 5mg given with relief. Will continue to monitor.
[2022-05-14 05:53] LABS: MANUAL DIFF FLAG NO
[2022-05-14 05:58] LABS: Basophils Absolute Auto 0.1 X10*3/uL (0.0-0.2); Basophils Percent Auto 0.7 % (0-2); Eosinophils Absolute Auto 0.1 X10*3/uL (0.0-0.4); Eosinophils Percent Auto 0.7 % (0-4); Hematocrit 52.2 % (42.0-52.0); Hemoglobin 17.8 g/dl (14.0-18.0); Imm Gran Abs Auto 0.06 X10*3/uL (0.00-0.03); Imm Gran Pct Auto 0.6 % (0.0-0.4); Lymphocytes Absolute Auto 1.2 X10*3/uL (1.2-4.9); Lymphocytes Percent Auto 11.7 % (20-40); Mean Corpuscular HGB Conc 34.1 g/dl (31.0-36.0); Mean Corpuscular Hemoglobin 30.3 pg (27.0-33.0); Mean Corpuscular Volume 88.9 fL (80.0-98.0); Mean Platelet Volume 11.6 fL (9.4-12.4); Monocytes Absolute Auto 0.7 X10*3/uL (0.1-1.2); Monocytes Percent Auto 6.8 % (2-11); Neutrophils Absolute Auto 8.1 x10*3/uL (2.0-8.3); Neutrophils Percent Auto 79.5 % (45-73); Platelet Count 127 X10*3/uL (160-400); Red Blood Count 5.87 X10*6/uL (4.60-5.80); Red Cell Distribution Width 13.8 % (11.0-16.0); White Blood Count 10.2 X10*3/uL (4.8-10.8)
[2022-05-14 06:00] VITALS: BP 127/66; PULSE 91; RESP 18; TEMP 36.6; O2SAT 95
--- NOTE | 2022-05-14 06:10 | PC.NURSE ---
Pt had run of 5 beats VT around 0531. Pt asymptomatic. VSS. Dr notified. Will pass along in report and will continue to monitor.
[2022-05-14 06:22] LABS: Cholesterol 133 mg/dL; HDL Cholesterol 49 mg/dL; LDL Cholesterol Calculated 71 mg/dl; Triglycerides 68 mg/dL
[2022-05-14 06:24] LABS: Anion Gap 24 (12-20); Blood Urea Nitrogen 28 mg/dL (9-16); Calcium 9.1 mg/dL (8.4-10.2); Carbon Dioxide 14 mmol/L (22-29); Chloride 106 mmol/L (96-108); Creatinine Clr Calc Pharmacy 85.5; Estimated Glomerular Filt Rate > 60; Glucose Random 154 mg/dL (60-115); Potassium 4.4 mmol/L (3.3-5.1); Sodium 140 mmol/L (135-145)
--- NOTE | 2022-05-14 07:00 | CA_ITS ---
Transthoracic Echocardiogram Patient (Last, First, Middle): Navarro Frost, Gender: Male Date of : 1955 Age: 67 Procedure Date: 05/14/2022 Procedure Type: Transthoracic Echocardiogram Location: [facility] [place] Height: 177.8 cm Weight: 89.81 kg BSA: 2.08 m2 Heart Rate: 83 bpm BP: 127 / 66 mmHg Advance Agent: SB Referring MD: Kiesha Anaya NP Symptoms: stroke Study Quality: Fair ECG Rhythm: Sinus Conclusions: - 1. Hyperdynamic LV systolic function with mild left ventricular hypertrophy and impaired relaxation filling pattern 2. Limited visualization of cardiac valves with normal cardiac valvular Doppler 3. No gross pericardial effusion Findings Procedure Information Contrast agent, definity, is being given per protocol without apparent complications. Left Ventricle Normal left ventricular cavity size. There is mildly increased left ventricular wall thickness. The left ventricular systolic function is hyperdynamic. The visually estimated ejection fraction is >70%. Regional wall motion abnormalities can not be excluded due to suboptimal endocardial definition. Spectral Doppler is indicative of an impaired relaxation filling pattern. Right Ventricle Normal right ventricular cavity size. There is mild to moderately decreased right ventricular systolic function. Atria The left atrium was not well visualized. Interatrial shunt cannot be excluded. The right atrium was not well visualized. Aortic Valve The aortic valve was not well visualized. There is no aortic valve stenosis. There is no aortic valve regurgitation. Mitral Valve The mitral valve was not well visualized. There is moderate posterior mitral leaflet thickening. There is moderate mitral annular calcification. There is trace mitral valve regurgitation. There is no mitral valve stenosis. Pulmonic Valve The pulmonic valve was not well visualized. Tricuspid Valve The tricuspid valve was not well visualized. Tricuspid regurgitation envelope is inadequate for calculation of right ventricular systolic pressure. Great Vessels All visible segments of the aorta are normal in size. The pulmonary artery was not well visualized. Venous The inferior vena cava was not well visualized. Pericardium/Pleural There is no evidence of pericardial effusion. Prior Study Comparison No significant change compared to prior study dated: 01/23/2022. Measurements 2D Linear Measurements IVSd: 1.34 0.6-0.9/0.6-1.0 cm LVIDd: 3.65 3.9-5.3/4.2-5.9 cm LVIDd Index: 1.75 2.4-3.2/2.2-3.1 cm/m2 LVIDs: 2.08 2.0-3.6 cm LVPWd: 1.19 0.7-1.1 cm LV Mass: 210.72 67-162/88-224 g LV Mass Index: 101.31 43-95/49-115 g/m2 2D Systolic Function EF 4C: 86.90 >55% EF 2C: 74.40 >55% EF BiP: 81.40 >55% Mitral Valve MV Pk E: 0.85 MV PK A: 1.45 MV Decel Time: 335.00 E/A: 0.60 E'Lateral: 6.53 E'Medial: 4.68 E/E' Med: 18.10 E/E' Lat: 13.00 PHT: 98.00 MVA PHT: 2.24 Decel Blaine: 2.53 Diastolic Function MV Pk E: 0.85 MV Pk A: 1.45 E/A: 0.60 E'Medial: 4.68 E/E' Med: 18.10 E' Laterial: 6.53 E/E' Lat: 13.00 Right Ventricle TAPSE (mm): 12.20 TVS' Thierry: 13.70 Updated in Other Vendor System with Status of Final Hunter Horne MD electronically signed on 05/14/2022 12:45:30 PM with status of Final
[2022-05-14 07:34] VITALS: BP 172/80; PULSE 93; RESP 20; TEMP 36.3; O2SAT 96
[2022-05-14] MEDS: ondansetron HCL 4 MG/2 ML VIAL IVPUSH (07:45)
[2022-05-14 07:48] LABS: Glucose, Whole Blood 138 mg/dL (60-115)
[2022-05-14 08:07] VITALS: BP 172/80; PULSE 93; O2SAT 96
[2022-05-14] MEDS: Insulin Glargine,Hum.rec.anlog 100 UNIT/ML 10 ML VIAL 35 UNIT SUBCUT (08:51)
[2022-05-14] MEDS: Clopidogrel Bisulfate 75 MG TABLET PO (08:52)
[2022-05-14] MEDS: lisinopriL 20 MG TABLET PO (08:52)
[2022-05-14] MEDS: Atorvastatin Calcium 40 MG TABLET PO (08:52)
[2022-05-14] MEDS: Calcium + Vitamin D 250 MG TABLET PO (08:52)
[2022-05-14] MEDS: Aspirin Enteric Coated 81 MG TABLET.DR 162 MG PO (08:52)
[2022-05-14] MEDS: Empagliflozin 25 MG TABLET PO (08:53)
[2022-05-14] MEDS: Multivitamin TABLET 1 TAB PO (08:53)
[2022-05-14] MEDS: Heparin Sodium,Porcine 5,000 UNIT/ML VIAL 5000 UNIT SUBCUT (08:54)
--- NOTE | 2022-05-14 10:30 | P.PNIM_ITS ---
Subjective Subjective Date of Service: 05/14/22 Interval History: Follow-up on acute stroke interval followup: His says he felt little weaker today Review of Systems unsteady gait, some no dome of treat Physical Exam Vital Signs: Vital Signs: Last Vital Signs Temp 97.3 F 05/14/22 07:34 Pulse 93 05/14/22 08:07 Resp 20 05/14/22 07:34 BP 172/80 H 05/14/22 08:07 Pulse Ox 96 05/14/22 08:07 O2 Del Method 05/14/22 07:34 BMI result Body Mass Index 28.5 Appearing in no acute distress lung sounds are clear to auscultation heart regular rate rhythm, clear S1, S2 positive bowel sounds, abdomen is soft, nontender neuro patient is alert x3, no focal deficits Left eye mild droop Objective Data Active Medications Acetaminophen (Acetaminophen 325 Mg Tablet) 650 mg PO Q6H PRN PRN Reason: Pain, Mild (Pain Scale 1-3) Last Admin: 05/14/22 03:20 Dose: 650 mg Documented By: JERRY Aspirin (Aspirin Enteric Coated 81 Mg Tablet.) 162 mg PO DAILY [facility] Last Admin: 05/14/22 08:52 Dose: 162 mg Documented By: WILFRED Atorvastatin Calcium (Atorvastatin Calcium 40 Mg Tablet) 40 mg PO DAILY [facility] Last Admin: 05/14/22 08:52 Dose: 40 mg Documented By: WILFRED Calcium Carbonate/Cholecalciferol (Calcium + Vitamin D 250 Mg Tablet) 250 mg PO DAILY [facility] Last Admin: 05/14/22 08:52 Dose: 250 mg Documented By: WILFRED Clopidogrel Bisulfate (Clopidogrel Bisulfate 75 Mg Tablet) 75 mg PO DAILY [facility] Last Admin: 05/14/22 08:52 Dose: 75 mg Documented By: WILFRED Empagliflozin (Empagliflozin 25 Mg Tablet) 25 mg PO DAILY [facility] Last Admin: 05/14/22 08:53 Dose: 25 mg Documented By: WILFRED Heparin Sodium (Porcine) (Heparin Sodium,Porcine 5,000 Unit/Ml Vial) 5,000 unit SUBCUT Q12H [facility] Last Admin: 05/14/22 08:54 Dose: 5,000 unit Documented By: WILFRED Insulin Glargine (Insulin Glargine,Hum.Rec.Anlog 100 Unit/Ml 10 Ml Vial) 35 uni t SUBCUT DAILY [facility] Last Admin: 05/14/22 08:51 Dose: 35 unit Documented By: WILFRED Insulin Human Lispro (Insulin Lispro 100 Unit/Ml 3 Ml Vial) 0 unit SUBCUT QIDACHS [facility]; Protocol Lisinopril (Lisinopril 20 Mg Tablet) 20 mg PO DAILY [facility]; Protocol Last Admin: 05/14/22 08:52 Dose: 20 mg Documented By: WILFRED Multivitamins/Vitamin C (Multivitamin Tablet) 1 tab PO DAILY [facility] Last Admin: 05/14/22 08:53 Dose: 1 tab Documented By: WILFRED Ondansetron HCl (Ondansetron Hcl 4 Mg/2 Ml Vial) 4 mg IVPUSH Q8H PRN PRN Reason: Nausea and Vomiting Last Admin: 05/14/22 07:45 Dose: 4 mg Documented By: WILFRED Pharmacy Consult (Consult Rx Perform Med Rec) 1 each MISCELLANE ONCE PRN PRN Reason: Consult order Pramipexole Dihydrochloride (Pramipexole Di-Hcl 0.25 Mg Tablet) 0.5 mg PO BEDTIME [facility] Last Admin: 05/13/22 22:41 Dose: 0.5 mg Documented By: MOON Labs CBC & Chem 7: 05/14/22 05:33 05/14/22 05:33 Labs: Laboratory Results - last 24 hr 05/13/22 05/13/22 05/13/22 12:01 12:01 12:01 MCV 88.0 MCH 30.6 MCHC 34.7 RDW 13.5 Plt Count 150 L MPV 12.1 Immature Gran % (Auto) 0.4 Neut % (Auto) 78.5 H Lymph % (Auto) 13.1 L [place] % (Auto) 6.7 Eos % (Auto) 0.8 Baso % (Auto) 0.5 Lymph # (Auto) 1.0 L [place] # (Auto) 0.5 Eos # (Auto) 0.1 Baso # (Auto) 0.0 Abs Immat Gran (auto) 0.03 Absolute Neuts (auto) 6.3 Absolute Nucleated RBC 0.000 Nucleated RBC % (auto) 0.0 PT 12.2 INR 1.1 Anion Gap 19 Estim Creat Clear Calc 81.4 Estimated GFR > 60 POC Glucose Random Glucose 170 H D Calcium 10.2 D Total Bilirubin 1.3 H AST 17 ALT 19 Alkaline Phosphatase 88 Total Protein 7.5 Albumin 4.7 Triglycerides Cholesterol LDL Cholesterol, Calc HDL Cholesterol Urine Color Urine Appearance Urine pH Ur Specific [place] Urine Protein Urine Glucose (UA) Urine Ketones Urine Blood Urine Nitrite Ur Leukocyte Esterase Urine RBC Urine WBC Ur Squamous Epith Cells Urine Bacteria Hyaline Casts COVID-19 (JORDIN) COVID-19 Clin Com 05/13/22 05/13/22 05/13/22 12:01 13:44 16:50 MCV MCH MCHC RDW Plt Count MPV Immature Gran % (Auto) Neut % (Auto) Lymph % (Auto) [place] % (Auto) Eos % (Auto) Baso % (Auto) Lymph # (Auto) [place] # (Auto) Eos # (Auto) Baso # (Auto) Abs Immat Gran (auto) Absolute Neuts (auto) Absolute Nucleated RBC Nucleated RBC % (auto) PT INR Anion Gap 18 Estim Creat Clear Calc 76.6 Estimated GFR > 60 POC Glucose Random Glucose 128 H Calcium 9.8 Total Bilirubin AST ALT Alkaline Phosphatase Total Protein Albumin Triglycerides Cholesterol LDL Cholesterol, Calc HDL Cholesterol Urine Color Yellow Urine Appearance Clear Urine pH 7.5 Ur Specific [place] >= 1.030 H Urine Protein 30 (1+) H Urine Glucose (UA) >=1000 H Urine Ketones 40 Urine Blood Negative Urine Nitrite Negative Ur Leukocyte Esterase Negative Urine RBC 0-2 Urine WBC 6-10 H Ur Squamous Epith Cells 0-2 Urine Bacteria 4+ Hyaline Casts 0-2 COVID-19 (JORDIN) Negative COVID-19 Clin Com See Note 05/13/22 05/14/22 05/14/22 17:13 05:33 05:33 MCV 88.9 MCH 30.3 MCHC 34.1 RDW 13.8 Plt Count 127 L MPV 11.6 Immature Gran % (Auto) 0.6 H Neut % (Auto) 79.5 H Lymph % (Auto) 11.7 L [place] % (Auto) 6.8 Eos % (Auto) 0.7 Baso % (Auto) 0.7 Lymph # (Auto) 1.2 [place] # (Auto) 0.7 Eos # (Auto) 0.1 Baso # (Auto) 0.1 Abs Immat Gran (auto) 0.06 H Absolute Neuts (auto) 8.1 Absolute Nucleated RBC 0.000 Nucleated RBC % (auto) 0.0 PT INR Anion Gap 24 H Estim Creat Clear Calc 85.5 Estimated GFR > 60 POC Glucose Random Glucose 154 H Calcium 9.1 D Total Bilirubin AST ALT Alkaline Phosphatase Total Protein Albumin Triglycerides Cholesterol LDL Cholesterol, Calc HDL Cholesterol Urine Color Urine Appearance Urine pH Ur Specific [place] Urine Protein Urine Glucose (UA) Urine Ketones Urine Blood Urine Nitrite Ur Leukocyte Esterase Urine RBC Urine WBC Ur Squamous Epith Cells Urine Bacteria Hyaline Casts COVID-19 (JORDIN) Negative COVID-19 Clin Com See Note 05/14/22 05/14/22 05:33 07:43 MCV MCH MCHC RDW Plt Count MPV Immature Gran % (Auto) Neut % (Auto) Lymph % (Auto) [place] % (Auto) Eos % (Auto) Baso % (Auto) Lymph # (Auto) [place] # (Auto) Eos # (Auto) Baso # (Auto) Abs Immat Gran (auto) Absolute Neuts (auto) Absolute Nucleated RBC Nucleated RBC % (auto) PT INR Anion Gap Estim Creat Clear Calc Estimated GFR POC Glucose 138 H Random Glucose Calcium Total Bilirubin AST ALT Alkaline Phosphatase Total Protein Albumin Triglycerides 68 Cholesterol 133 D LDL Cholesterol, Calc 71 HDL Cholesterol 49 D Urine Color Urine Appearance Urine pH Ur Specific [place] Urine Protein Urine Glucose (UA) Urine Ketones Urine Blood Urine Nitrite Ur Leukocyte Esterase Urine RBC Urine WBC Ur Squamous Epith Cells Urine Bacteria Hyaline Casts COVID-19 (JORDIN) COVID-19 Clin Com Assessment and Plan (1) Stroke: Status: Acute (2) Cerebrovascular accident: Status: Acute Plan 67-year-old man admitted for stroke with history of lacunar and cerebellar stroke in January of this year Stroke MRI showed acute lacunar infarct CTA head and neck, echo pending PT/OT rec o/p PT Neurology consultation pending Monitor on telemetry Continue aspirin, statin, add Plavix Hypertension Continue lisinopril Diabetes mellitus Sliding scale, ADA diet Polycythemia Follow CBC Obstructive sleep apnea Not on CPAP DVT prophylaxis with heparin Attending Dr. Haywood Full code Patient requires continued hospitalization for further workup of acute stroke pending further evaluation from neurologist Quality Stroke Does the patient have a stroke diagnosis?: No VTE Prior VTE?: No VTE Risk Level:: Medical - moderate - high VTE Device Contraindication: Treatment Not Indicated VTE Drug Contraindication: N/A - Med Ordered
--- NOTE | 2022-05-14 10:36 | PM.NEUROCN ---
History of Present Illness Data of Consult Service Date: 05/14/22 Primary Care Provider: Mauri Dixon, [facility]- HPI Reason for consult: eyelid droop r/o stroke This is a 67-year-old man with DM, DAVIAN, RLS,hyperlipidemia, previous stroke who presented to the ER with left eyelid drooping and right sided numbness that started approximately 48 hours ago and is now almost completely gone. The patient denies chest pain, shortness breath, nausea, vomiting, diarrhea, recent illness or travel.? He was admitted to [facility] with a 1cm left pontine infarct from small vessel disease in January 2022. Review of Systems Review of Systems: unsteady gait, Constitutional: Constitutional: Reports no additional constitutional complaints Eyes: Eyes: Reports no additional eye complaints ENT: Denies dizziness Cardiovascular: Cardiovascular: Reports no additional cardiovascular complaints Respiratory: Respiratory: Reports as per HPI Gastrointestinal: Gastrointestinal: Reports no additional gastrointestinal complaints Musculoskeletal: Musculoskeletal: Reports no additional musculoskeletal complaints Integumentary/Breasts: Skin/Breast: Denies rash Neurologic: Reports system reviewed and no additional complaints, except as documented, Denies dizziness and Reports Sensory deficit (Neuro) (bilateral 5th finger numbness) Psychiatric: Psychiatric: Denies anxiety [facility] Past Medical History Medical History (Updated 05/14/22 @ 12:30 by Rodriguez Sandoval MD) Acute embolic stroke Cataract CKD (chronic kidney disease) stage 2, GFR 60-89 ml/min Colon cancer Diabetes mellitus Dyslipidemia Erectile dysfunction Fuchs' corneal dystrophy Hypertension Hypertensive nephrosclerosis Neuropathy Obesity (BMI 30.0-34.9) Persistent proteinuria RLS (restless legs syndrome) Sleep apnea Type 2 diabetes mellitus with diabetic polyneuropathy Xerosis cutis Family History Family History Mother History of pancreatic cancer Father No problems noted. Brother Diabetes Maternal Grandmother Diabetes Surgical History Surgical History History of colon resection (~04/20/19) History of colonoscopy (~03/15/19) History of esophagogastroduodenoscopy (EGD) Hx of cornea transplant Hx of left cataract extraction Social History Social History Household Members: None Housing: Condominium Are you a primary hospice care consultant to a significant other at home: No Do you presently have visiting nurse or other home services: No Alcohol intake: never Patient Tobacco Use Status: Never used Tobacco e-Cigarette/Vaping Use: Never Used Second Hand Smoke Exposure: No Use of substances other than those prescribed or required for medical reasons: No Advance Directives: Yes Advance Directives Information Provided: No Advance Directives on File: No Advance Directives Date on File: 05/14/22 service: No Current occupational status: retired [employer] Allergies Allergy/AdvReac Type Severity Reaction Status Date / Time No Known Allergies Allergy Verified 04/09/22 15:27 [No Known Allergies*] Active Medications: Current Medications Acetaminophen (Acetaminophen 325 Mg Tablet) 650 mg PO Q6H PRN PRN Reason: Pain, Mild (Pain Scale 1-3) Last Admin: 05/14/22 03:20 Dose: 650 mg Aspirin (Aspirin Enteric Coated 81 Mg Tablet.Dr) 162 mg PO DAILY [facility] Last Admin: 05/14/22 08:52 Dose: 162 mg Atorvastatin Calcium (Atorvastatin Calcium 40 Mg Tablet) 40 mg PO DAILY [facility] Last Admin: 05/14/22 08:52 Dose: 40 mg Calcium Carbonate/Cholecalciferol (Calcium + Vitamin D 250 Mg Tablet) 250 mg PO DAILY [facility] Last Admin: 05/14/22 08:52 Dose: 250 mg Clopidogrel Bisulfate (Clopidogrel Bisulfate 75 Mg Tablet) 75 mg PO DAILY [facility] Last Admin: 05/14/22 08:52 Dose: 75 mg Empagliflozin (Empagliflozin 25 Mg Tablet) 25 mg PO DAILY [facility] Last Admin: 05/14/22 08:53 Dose: 25 mg Heparin Sodium (Porcine) (Heparin Sodium,Porcine 5,000 Unit/Ml Vial) 5,000 unit SUBCUT Q12H [facility] Last Admin: 05/14/22 08:54 Dose: 5,000 unit Insulin Glargine (Insulin Glargine,Hum.Rec.Anlog 100 Unit/Ml 10 Ml Vial) 35 unit SUBCUT DAILY [facility] Last Admin: 05/14/22 08:51 Dose: 35 unit Insulin Human Lispro (Insulin Lispro 100 Unit/Ml 3 Ml Vial) 0 unit SUBCUT QIDACHS [facility]; Protocol Lisinopril (Lisinopril 20 Mg Tablet) 20 mg PO DAILY [facility]; Protocol Last Admin: 05/14/22 08:52 Dose: 20 mg Multivitamins/Vitamin C (Multivitamin Tablet) 1 tab PO DAILY [facility] Last Admin: 05/14/22 08:53 Dose: 1 tab Ondansetron HCl (Ondansetron Hcl 4 Mg/2 Ml Vial) 4 mg IVPUSH Q8H PRN PRN Reason: Nausea and Vomiting Last Admin: 05/14/22 07:45 Dose: 4 mg Pharmacy Consult (Consult Rx Perform Med Rec) 1 each MISCELLANE ONCE PRN PRN Reason: Consult order Pramipexole Dihydrochloride (Pramipexole Di-Hcl 0.25 Mg Tablet) 0.5 mg PO BEDTIME [facility] Last Admin: 05/13/22 22:41 Dose: 0.5 mg Home Medications Medication Instructions Recorded Confirmed Last Taken Type pramipexole 0.5 mg tablet (Mirapex) 0.5 mg PO BEDTIME 07/10/20 05/13/22 1 Week Ago History ~01/13/22 blood sugar diagnostic #10 ea 07/28/20 03/01/22 Unknown History aspirin 81 mg tablet,delayed 162 mg PO DAILY 05/01/21 05/13/22 05/13/22 History release calcium carbonate 600 mg-vitamin 1 tab PO DAILY 05/01/21 05/13/22 05/13/22 History D3 5 mcg (200 unit) tablet multivitamin 1 tab PO DAILY 05/01/21 05/13/22 05/13/22 History omega-3 fatty acids 1,000 mg PO DAILY 05/01/21 05/13/22 05/13/22 History blood-glucose meter (OneTouch 09/21/21 03/01/22 Unknown History Ultra2 Meter) lisinopril 20 mg tablet 1 tab PO DAILY 05/13/22 05/13/22 05/13/22 History Physical Exam Vital Signs: Vital Signs: Last Vital Signs Temp 97.3 F 05/14/22 07:34 Pulse 93 05/14/22 08:07 Resp 20 05/14/22 07:34 BP 172/80 H 05/14/22 08:07 Pulse Ox 96 05/14/22 08:07 O2 Del Method 05/14/22 07:34 BMI result Body Mass Index 28.5 Const: General: healthy appearing Nutritional Appearance: average body habitus Orientation/consciousness: oriented to person and patient oriented x3 Limitations: no limitations HEENT: Head: Yes normal to inspection Ears: external ears normal General nose exam: Normal external nose present Mouth: Normal oral and palatal mucosa present and oropharynx normal Throat: Yes posterior oropharynx normal Eyes: General: appearance normal, both eyes and all related structures Neck: Other: supple Neck: Yes normal visual inspection Chest: Chest palpation & inspection: normal inspection of the chest Resp: Auscultation: clear to auscultation bilaterally Cardio: Jugular venous distension: no JVD Rate: regular rate Rhythm: regular rhythm Heart sounds: S1 normal heart sound present and S2 normal heart sound present GI: Inspection: Yes normal to inspection Palpation (GI): Soft to palpation, nontender and No hepatosplenomegaly present Auscultation: normal bowel sounds : General: Yes no CVA tenderness Back/Spine/Pelvis: Back: no CVA tenderness Skin: General skin exam: no rashes or lesions noted Neuro: Other: Asymmetrical palpebral apertures with slight left ptosis. Right upper extremity abduction and pronation weakness. Bilateral atrophy , R>L of intrinsic hand muscles General: oriented to person and patient oriented x3 Sensory Exam: Sensory deficit (Neuro) (bilateral 5th finger numbness) Extrem: General: Yes normal to inspection Psych: Appearance: grossly normal Results Labs CBC & Chem 7: 05/14/22 05:33 05/14/22 05:33 Labs: Short CBC 05/13/22 05/14/22 Range/Units 12:01 05:33 WBC 8.0 10.2 (4.8-10.8) X10*3/uL Hgb 18.4 H 17.8 (14.0-18.0) g/dl Hct 53.0 H 52.2 H (42.0-52.0) % Plt Count 150 L 127 L (160-400) X10*3/uL BMP 05/13/22 05/13/22 05/14/22 12:01 13:44 05:33 Sodium 143 142 140 Potassium 4.3 4.8 4.4 Chloride 106 105 106 Carbon Dioxide 22 24 14 L BUN 18 H 18 H 28 H D Creatinine 0.97 1.03 0.92 Calcium 10.2 D 9.8 9.1 D Liver Function 05/13/22 Range/Units 12:01 Total Bilirubin 1.3 H (0.0-1.0) mg/dL AST 17 (5-37) U/L ALT 19 (0-40) U/L Alkaline Phosphatase 88 (39-117) U/L Albumin 4.7 (3.5-5.0) g/dL Urine 05/13/22 Range/Units 16:50 Urine Color Yellow Urine Appearance Clear Urine pH 7.5 (5.0-8.0) Ur Specific [place] >= 1.030 H (1.005-1.025) Urine Protein 30 (1+) H (Neg-Trace) mg/dL Urine Glucose (UA) >=1000 H (Negative) mg/dL Assessment and Plan (1) Stroke: Status: Acute Tiny small vessel stroke in mid vicki. Old left pontinestroke in January 2022. Recom. Continue current meds and add Plavix 75 mg hs. Home PT (2) Cerebrovascular accident: Status: Acute (3) Ulnar neuropathy at elbow: Status: Acute Avoid pressure on elbows or use elbow pads Plan 67-year-old man admitted for stroke with history of lacunar and cerebellar stroke in January of this year Stroke MRI showed acute lacunar infarct CTA head and neck, echo pending PT/OT rec o/p PT Neurology consultation pending Monitor on telemetry Continue aspirin, statin, add Plavix Hypertension Continue lisinopril Diabetes mellitus Sliding scale, ADA diet Polycythemia Follow CBC Obstructive sleep apnea Not on CPAP DVT prophylaxis with heparin Attending Dr. Haywood Full code Patient requires continued hospitalization for further workup of acute stroke pending further evaluation from neurologist Procedures Date of Service Date of Service: 05/14/22
[2022-05-14 10:57] VITALS: BP 129/61; PULSE 83; RESP 20; TEMP 36.4; O2SAT 97
[2022-05-14 11:30] LABS: Glucose, Whole Blood 200 mg/dL (60-115)
[2022-05-14] MEDS: Insulin Lispro 100 UNIT/ML 3 ML VIAL SUBCUT (11:33)
--- NOTE | 2022-05-14 12:59 | PM.DS ---
DS: Providers Provider Date of Service: 05/14/22 Date of admission: 05/13/22 17:42 Primary care physician: STACEY Porter Consults: 05/13/22 17:27 Consult to Neurology Routine Consulting Provider: [facility] Reason for consultation: stroke Has provider been notified: No Attending physician on discharge: Jae Haywood Discharging clinician: Kiesha Anaya DS: Diagnosis Discharge Diagnosis (1) Stroke: Status: Acute (2) Cerebrovascular accident: Status: Acute (3) Ulnar neuropathy at elbow: Status: Acute DS: Summary Hospital Course Hospital Course: 67-year-old man presented to the ER with left eyelid lag and right shoulder numbness that started approximately 48 hours ago.? Apparently the patient's friend noticed that his left eyelid was drooping.? The patient denies chest pain, shortness breath, nausea, vomiting, diarrhea, recent illness or travel.? He does have a history of a stroke and was admitted to [facility] earlier this year. Labs are within acceptable limits although he is noted to have polycythemia and H&H is elevated 18.453.0.? Blood pressure was also noted to be elevated with highest reading of 190/94.? In the ER, MRI was obtained which showed a punctate acute lacunar infarct without mass effect or hemorrhagic conversion.? He was given a dose of Plavix in the ER.? To be admitted for further management and treatment of acute stroke Stroke MRI, CTA head and neck with no significant occlusion. Some vertebral artery stenosis, echo normal EF PT/OT rec o/p PT Seen and evaluated by nephrology with rec to add Plavix to aspirin and continue PT Hypertension Continue lisinopril Diabetes mellitus continue home medications Polycythemia Follow CBC Obstructive sleep apnea cpap if prescribed Time Spent with Patient Time attestation: Total time spent providing and/or coordinating discharge services: Discharge coordination time: Greater than 30 minutes Quality: Safe Use of Opioids Does Pt have an Active Cancer Diagnosis on the Problem List?: No Quality: Stroke Does the patient have a stroke diagnosis?: No Physical Exam Vital Signs: Vital Signs: Last Vital Signs Temp 97.5 F 05/14/22 10:57 Pulse 83 05/14/22 10:57 Resp 20 05/14/22 10:57 BP 129/61 05/14/22 10:57 Pulse Ox 97 05/14/22 10:57 O2 Del Method 05/14/22 10:57 BMI result Body Mass Index 28.5 Appearing in no acute distress head is normocephalic atraumatic eyes pupils are PERRLA sclera is anicteric mouth throat mucous membranes are intact and moist neck is supple no lymphadenopathy, no JVD noted lung sounds are clear to auscultation heart regular rate rhythm, clear S1, S2 positive bowel sounds, abdomen is soft, nontender neuro patient is alert x3, still with a mild left eyelid droop. 4/5 strength to upper and lower ext DS: Data Data Completed and Pending Labs on day of discharge: Laboratory Results - last 24 hr 05/13/22 05/13/22 05/13/22 13:44 16:50 17:13 WBC RBC Hgb Hct MCV MCH MCHC RDW Plt Count MPV Immature Gran % (Auto) Neut % (Auto) Lymph % (Auto) [place] % (Auto) Eos % (Auto) Baso % (Auto) Lymph # (Auto) [place] # (Auto) Eos # (Auto) Baso # (Auto) Abs Immat Gran (auto) Absolute Neuts (auto) Absolute Nucleated RBC Nucleated RBC % (auto) Sodium 142 Potassium 4.8 Chloride 105 Carbon Dioxide 24 Anion Gap 18 BUN 18 H Creatinine 1.03 Estim Creat Clear Calc 76.6 Estimated GFR > 60 POC Glucose Random Glucose 128 H Calcium 9.8 Triglycerides Cholesterol LDL Cholesterol, Calc HDL Cholesterol Urine Color Yellow Urine Appearance Clear Urine pH 7.5 Ur Specific [place] >= 1.030 H Urine Protein 30 (1+) H Urine Glucose (UA) >=1000 H Urine Ketones 40 Urine Blood Negative Urine Nitrite Negative Ur Leukocyte Esterase Negative Urine RBC 0-2 Urine WBC 6-10 H Ur Squamous Epith Cells 0-2 Urine Bacteria 4+ Hyaline Casts 0-2 COVID-19 (JORDIN) Negative COVID-19 Clin Com See Note 05/14/22 05/14/22 05/14/22 05:33 05:33 05:33 WBC 10.2 RBC 5.87 H Hgb 17.8 Hct 52.2 H MCV 88.9 MCH 30.3 MCHC 34.1 RDW 13.8 Plt Count 127 L MPV 11.6 Immature Gran % (Auto) 0.6 H Neut % (Auto) 79.5 H Lymph % (Auto) 11.7 L [place] % (Auto) 6.8 Eos % (Auto) 0.7 Baso % (Auto) 0.7 Lymph # (Auto) 1.2 [place] # (Auto) 0.7 Eos # (Auto) 0.1 Baso # (Auto) 0.1 Abs Immat Gran (auto) 0.06 H Absolute Neuts (auto) 8.1 Absolute Nucleated RBC 0.000 Nucleated RBC % (auto) 0.0 Sodium 140 Potassium 4.4 Chloride 106 Carbon Dioxide 14 L Anion Gap 24 H BUN 28 H D Creatinine 0.92 Estim Creat Clear Calc 85.5 Estimated GFR > 60 POC Glucose Random Glucose 154 H Calcium 9.1 D Triglycerides 68 Cholesterol 133 D LDL Cholesterol, Calc 71 HDL Cholesterol 49 D Urine Color Urine Appearance Urine pH Ur Specific [place] Urine Protein Urine Glucose (UA) Urine Ketones Urine Blood Urine Nitrite Ur Leukocyte Esterase Urine RBC Urine WBC Ur Squamous Epith Cells Urine Bacteria Hyaline Casts COVID-19 (JORDIN) COVID-19 eegoes 05/14/22 05/14/22 07:43 11:26 WBC RBC Hgb Hct MCV MCH MCHC RDW Plt Count MPV Immature Gran % (Auto) Neut % (Auto) Lymph % (Auto) [place] % (Auto) Eos % (Auto) Baso % (Auto) Lymph # (Auto) [place] # (Auto) Eos # (Auto) Baso # (Auto) Abs Immat Gran (auto) Absolute Neuts (auto) Absolute Nucleated RBC Nucleated RBC % (auto) Sodium Potassium Chloride Carbon Dioxide Anion Gap BUN Creatinine Estim Creat Clear Calc Estimated GFR POC Glucose 138 H 200 H Random Glucose Calcium Triglycerides Cholesterol LDL Cholesterol, Calc HDL Cholesterol Urine Color Urine Appearance Urine pH Ur Specific [place] Urine Protein Urine Glucose (UA) Urine Ketones Urine Blood Urine Nitrite Ur Leukocyte Esterase Urine RBC Urine WBC Ur Squamous Epith Cells Urine Bacteria Hyaline Casts COVID-19 (JORDIN) COVID-19 [facility] Com Preliminary micro results at discharge 05/13/22 18:09 Urine Culture - Preliminary Urine clean catch - Urine llanes top Staphylococcus species Discharge Plan Discharge Anticipated Discharge Date/Time: 05/14/22 12:47 Patient Disposition: Home Health Service Discharge Diagnosis: Stroke Referrals: Resume [facility] Out[facility] Physical Therapy [Other] - 1 Week Mauri Dixon FNP-ALEXI [Primary Care Provider] - 1 Week Rodney Sanchez MD [Physician] - 1 Week (Neurologist follow-up) Discharge Medications: New clopidogrel 75 mg Tablet 75 mg PO DAILY Qty: 30 0RF Continued metformin 1,000 mg tablet 1,000 mg PO BID Qty: 180 1RF (DME) lancets 33 gauge misc See Rx Instructions topical .MEDSUPPLY Qty: 100 11RF Rx Instructions: As directed (DME) OneTouch Ultra Test Strip See Rx Instructions .Route Qty: 100 11RF Rx Instructions: As directed three times a day Tresiba FlexTouch U-200 200 unit/mL (3 mL) insulin pen 50 unit subcut DAILY 30 Days Qty: 9 6RF pioglitazone 30 mg tablet 30 mg PO DAILY Qty: 90 0RF multivitamin Tablet 1 tab PO DAILY calcium carbonate-vitamin D3 600 mg(1,500mg) -200 unit Tablet 1 tab PO DAILY aspirin 81 mg Tablet,Delayed Release (Dr/Ec) 162 mg PO DAILY omega-3 fatty acids Capsule 1,000 mg PO DAILY lisinopril 20 mg tablet 1 tab PO DAILY atorvastatin 20 mg tablet 40 mg PO DAILY Qty: 90 3RF pramipexole [Mirapex] 0.5 mg tablet 0.5 mg PO BEDTIME Rx Instructions: patient has been out for a week or so (DME) blood sugar diagnostic Strip See Rx Instructions .ROUTE TID Qty: 10 Rx Instructions: As directed (DME) blood-glucose meter [OneTouch Ultra2 Meter] [facility] See Rx Instructions .Route Rx Instructions: As directed Jardiance 25 mg tablet 25 mg PO QAM Qty: 30 8RF Discharge Orders: Discharge Order (Routine); Ordered 05/14/22 Ordered By: Kiesha Anaya Diet: Advance to usual diet Activity on Discharge: As tolerated Stand Alone Forms: Patient Portal Discharge page Care Plan Goals: Complete resolution of symptoms Health Concerns: Stroke Plan of Treatment: Follow-up with neurologist as needed Follow-up with primary care provider as needed You have been prescribed Plavix, take along with ER aspirin as prescribed Assessment: See discharge summary
--- NOTE | 2022-05-14 13:05 | MHC.CM.PN ---
CM spoke with DEV MANAGER/Kiesha; Patient is medically cleared for dc and will dc to home today and resume his Outpatient PT (@ [facility] in [place])(no new VNA being ordered).
== END 2022-05-14 13:42 | disposition home health service (06) | DRG 66 ==
LOC: HO.ED 16:35 → HO.EDOVER 05-14 00:52 → HO.IMC 05-14 01:01
PROVIDERS: Internal Medicine; Admitting Provider Hospitalist; Emergency Provider Emergency Medicine; PCP Nurse Practitioner Family; Visit Provider Nurse Practitioner Acute Care
DX: I63.81 Other cerebral infarction due to occlusion or stenosis of small artery (principal); G25.81 Restless legs syndrome; E11.42 Type 2 diabetes mellitus with diabetic polyneuropathy; E78.5 Hyperlipidemia, unspecified; R29.810 Facial weakness; E11.22 Type 2 diabetes mellitus with diabetic chronic kidney disease; D75.1 Secondary polycythemia; I12.9 Hypertensive chronic kidney disease with stage 1 through stage 4 chronic kidney disease, or unspecified chronic kidney disease; R29.702 NIHSS score 2; G56.21 Lesion of ulnar nerve, right upper limb; G47.33 Obstructive sleep apnea (adult) (pediatric); N18.2 Chronic kidney disease, stage 2 (mild); Z20.822 Contact with and (suspected) exposure to COVID-19; Z85.038 Personal history of other malignant neoplasm of large intestine; Z79.4 Long term (current) use of insulin; Z79.02 Long term (current) use of antithrombotics/antiplatelets; Z79.82 Long term (current) use of aspirin; Z79.899 Other long term (current) drug therapy
CPT/HCPCS: 36415; 70496; 70498; 70551; 80048; 80053; 80061; 81001; 82947; 84484; 85025; 85610; 87086; 87088; 87186; 87635; 93005; 93308; 97162; 97166; 99285; J2405; Q9957; Q9967

== ENCOUNTER → 2022-05-31 10:04 | Outpatient (BNVA) | payer MEDICARE, SELFPAY | PROVIDERS: PCP Nurse Practitioner Family; Visit Provider Nurse Practitioner Family | DX: G47.33 Obstructive sleep apnea (adult) (pediatric) (principal); G25.81 Restless legs syndrome; R40.0 Somnolence; I10 Essential (primary) hypertension; Z86.73 Personal history of transient ischemic attack (TIA), and cerebral infarction without residual deficits | CPT/HCPCS: 99202 ==

== ENCOUNTER 2022-07-04 10:00 | Outpatient (RCR) | payer MEDICARE, SELFPAY ==
--- NOTE | 2022-05-03 14:35 | MHC.PT.EP ---
[facility] [place] Office [place] Office [place] Office [address] Jesus Mayen [address] [phone] F: [phone] F: [phone] F: [phone] F: [phone] Physical Therapy Plan of Care Date of Evaluation: Date of Surgery: Diagnosis: R LE weakness Assessment: 67 y/o RHD male referred for R LE weakness. He is s/p CVA 01/15/22. His initial sx were facial droop, B LE weakness and hand weakness. He went to [facility] ED 01/21/[address] of head was essentially negative, but MRI of brain revealed an acute embolic stroke of the left vicki with no mass-effect. He was then sent to acute rehab at [facility] for ~ 2 weeks. He had 4 sessions of outpatient OT but d/c secondary to difficulty getting to 4th floor of [facility] for appointments. He reports difficulty with walking, getting in/out of chairs and the car. Currently he ambulates without AD with decreased rosita, wide FAVIO, lacks trunk mobility, and foot flat contact. He also demonstrates decreased R LE strength, mild decreased R UE strength, impaired coordination, impaired posture, impaired balance, and gait. Recommend PT2x/week for 6 weeks to address impairments, implement HEP, and optimize functional mobility. Frequency and Duration: The patient will be seen 2x/week for 6 weeks Short Term Goals: 3 weeks I with HEP Improve R LE strength by 1/2 MMT grade Care Home Goals: 6 weeks I with HEP and self managment of sx Pt will be able to walk > 20 minutes with symmetrical arm swing and heel strike patterning Pt will be able to get in/out of the car with difficulty < 3/10 (currently 6/10) Treatment Plan: Modalities to reduce pain, spasms and effusion. Manual therapy to restore motion and function. Therapeutic exercise to improve strength and flexibility. Neuromuscular re-education for posture and balance. Therapeutic activities to return to functional activities of daily living. Electronically signed by: Lore Mcmahan PT Please sign and return to therapist. Thank you for your referral.
--- NOTE | 2022-05-24 14:18 | MHC.PT.RE ---
[facility] [place] Office [place] Office [place] Office [address] Jesus Mayen [address] [phone] F: [phone] F: [phone] F: [phone] F: [phone] Physical Therapy Re-evaluation Diagnosis: R LE weakness Date of Surgery: NA Date of Evaluation: 05/03/22 Treatments to Date: 4 Cancellations to Date: 0 No Shows to Date: 0 Subjective: Pt had L ptosis and R UE weakness 05/13/22 and went to ED; MRI showed a punctate acute lacunar infarct.PT outpatient was recommend while in hospital and he has f/u with PCP. He is now on Plavix. He feels residual R UE weakness and some minor R LE weakness. Pain Score: 0 Pain Location: NA Objective Measures: BP L UE: 124/78 R UE MMT: shoulder flexion 3-/5, abd 3-/5, ER 3-/5, IR 3+/5, biceps 4-/5, triceps 3+/5 R LE MMT: hip flexion 4-/5, quads 4-/5, HS 4/5, ER 4-/5, IR 4-/5 Coordination: R dysmetria finger to nose, rapid alternating movements slightly off at ankle, normal at forearm, normal heel to qureshi Balance: FTEO WNL, FTEC minimal sway, staggered stance mild sway Assessment: Pt had L ptosis and R UE weakness 05/13/22 and went to ED; MRI showed a punctate acute lacunar infarct.PT outpatient was recommend while in hospital and he has f/u with PCP. He is now on Plavix. He feels residual R UE weakness and some minor R LE weakness. Re-examination shows minimal-no change with R LE strength and balance, however he does have R shoulder/elbow weakness 3-/5 throughout. Recommend continuing with PT 2x/week for 5 more weeks for R UE/LE strengthening, coordination/propriocpetion, balance, and gait training. During session exercises today, he needed cues for pacing and moving with intent. Short Term Goals: 3 weeks I with HEP Improve R LE strength by 1/2 MMT grade [employer] [place] Goals: 6 weeks I with HEP and self managment of sx Pt will be able to walk > 20 minutes with symmetrical arm swing and heel strike patterning Pt will be able to get in/out of the car with difficulty < 3/10 (currently 6/10) -Pt will be able to reach into overhead cabinet with R UE and pain < 3/10 Frequency and Duration: The patient will be seen 2x/week for 5 more weeks Treatment Plan: Therapeutic Exercise Dynamic Therapeutic Activities Neuromuscular Re-ed Gait Home Exercise Program Patient Education Reviewed/ Agreed with Student Documentation: Therapist: Electronically signed by: Lore Mcmahan PT Please sign and return to therapist. Thank you for your referral.
--- NOTE | 2022-07-04 11:40 | MHC.PT.DC ---
[facility] [place] [facility] [address] Jesus Mayen [address] [phone] F: [phone] F: [phone] F: [phone] F: [phone] Physical Therapy Discharge Report Diagnosis: R LE weakness Date of Surgery: NA Date of Evaluation: 05/03/22 Date of Discharge: 07/04/22 Treatments to Date: 16 Cancellations to Date: 0 No Shows to Date: 0 Discharge Status: Achieved Goals Improved Function Independent with HEP Discharge Summary: 07/04/2022: Pt has made progress since start of care with PT. He currently demonstrates strength improvements and reports of feeling better in general . He does continue to lack symmetrical arm swing and heel strike with gait but there is some minor improvement here. Balance has improved but he continues to demonstrate retropulsion on the foam and greater difficulty in general on the foam. Pt is preferring to end skilled PT at this point. He states he feels ready and he is independent and compliant with his HEP. He also is active in exercise and balance classes at the [facility]. I feel it is reasonable to end skilled PT at this point as he does demonstrate good compliance and is active in the [facility] to further work on balance and strengthening. Encouraged him to continue with HEP as well to maintain max benefits and pt with good understanding. Electronically signed by: Shannen Hernandez, PT, DPT, ATC Please sign and return to therapist. Thank you for your referral.
== END 2022-07-04 11:41 | disposition home or self-care (01) ==
LOC: HO.PTCHIC 10:00
PROVIDERS: PCP Nurse Practitioner Family; Visit Provider Nurse Practitioner Family
DX: R53.1 Weakness (principal)
CPT/HCPCS: 97110; 97112; 97162; 97164; 97530

== ENCOUNTER → 2022-07-19 19:51 | Outpatient (REF) | payer MEDICARE, SELFPAY | LOC: HO.SL 19:51 | PROVIDERS: PCP Nurse Practitioner Family; Visit Provider Nurse Practitioner Family | DX: G47.33 Obstructive sleep apnea (adult) (pediatric) (principal) | CPT/HCPCS: 95810 ==

== ENCOUNTER → 2022-08-21 10:12 | Outpatient (BNVA) | payer MEDICARE, SELFPAY | PROVIDERS: PCP Nurse Practitioner Family; Visit Provider Nurse Practitioner Family | DX: G47.33 Obstructive sleep apnea (adult) (pediatric) (principal) | CPT/HCPCS: 99212 ==

== ENCOUNTER 2022-08-29 09:42 | Outpatient (REF) | payer MEDICARE, SELFPAY ==
[2022-08-29 11:20] LABS: MANUAL DIFF FLAG NO
[2022-08-29 11:29] LABS: Appearance Urine Cloudy; Color Urine Yellow; Glucose Urine UA >=1000 mg/dL (Negative); Leukocyte Esterase Urine Small (1+) (Negative); Nitrite Urine Negative (Negative); Specific Gravity - Urine >= 1.030 (1.005-1.025); UMIC TRIGGER UACC YES; Urine Blood Negative (Negative); Urine Ketones Negative (Negative); Urine Protein Negative (Neg-Trace)
[2022-08-29 11:36] LABS: Bacteria Urine 4+ (None Seen); Hyaline Casts Urine 0-2 /LPF (0-2); RBC Urine 0-2 /HPF (0-2); Squamous Epithelial Cell Urine 0-2 /HPF (0-2); UACC Culture Trigger YES; WBC Urine >50 /HPF (0-5)
[2022-08-29 11:38] LABS: Basophils Absolute Auto 0.1 X10*3/uL (0.0-0.2); Basophils Percent Auto 1.1 % (0-2); Eosinophils Absolute Auto 0.2 X10*3/uL (0.0-0.4); Eosinophils Percent Auto 2.9 % (0-4); Hematocrit 51.5 % (42.0-52.0); Hemoglobin 17.3 g/dl (14.0-18.0); Imm Gran Abs Auto 0.06 X10*3/uL (0.00-0.03); Imm Gran Pct Auto 1.1 % (0.0-0.4); Lymphocytes Absolute Auto 1.5 X10*3/uL (1.2-4.9); Lymphocytes Percent Auto 26.7 % (20-40); Mean Corpuscular HGB Conc 33.6 g/dl (31.0-36.0); Mean Corpuscular Hemoglobin 30.4 pg (27.0-33.0); Mean Corpuscular Volume 90.4 fL (80.0-98.0); Monocytes Absolute Auto 0.5 X10*3/uL (0.1-1.2); Monocytes Percent Auto 8.2 % (2-11); Neutrophils Absolute Auto 3.3 x10*3/uL (2.0-8.3); Platelet Count 135 X10*3/uL (160-400); Red Cell Distribution Width 13.2 % (11.0-16.0); White Blood Count 5.5 X10*3/uL (4.8-10.8)
[2022-08-29 11:57] LABS: Estimated Average Glucose 209 mg/dL; Hemoglobin A1c % 8.9 %
[2022-08-29 12:11] LABS: Microalbum/Creatinine Ratio Ur 62.3 ug/mg cr
[2022-08-29 13:21] LABS: Alanine Aminotransferase 15 U/L (0-40); Albumin Level 4.3 g/dL (3.5-5.0); Alkaline Phosphatase 83 U/L (39-117); Anion Gap 15 (12-20); Aspartate Amino Transferase 15 U/L (5-37); Bilirubin Total 1.4 mg/dL (0.0-1.0); Blood Urea Nitrogen 13 mg/dL (9-16); Calcium 9.4 mg/dL (8.4-10.2); Carbon Dioxide 25 mmol/L (22-29); Chloride 107 mmol/L (96-108); Cholesterol 129 mg/dL; Estimated Glomerular Filt Rate > 60; Glucose Fasting 214 mg/dL (60-99); HDL Cholesterol 35 mg/dL; LDL Cholesterol Calculated 73 mg/dl; Potassium 4.7 mmol/L (3.3-5.1); Sodium 142 mmol/L (135-145); TSH reflex Free T4 1.74 uIU/mL (0.32-4.0); Total Protein 6.6 g/dL (6.5-8.0); Triglycerides 108 mg/dL
== END 2022-08-29 09:43 | disposition home or self-care (01) ==
LOC: HO.HMGCLDS 09:42
PROVIDERS: PCP Nurse Practitioner Family; Visit Provider Nurse Practitioner Family
DX: E11.29 Type 2 diabetes mellitus with other diabetic kidney complication (principal); E11.65 Type 2 diabetes mellitus with hyperglycemia; I63.9 Cerebral infarction, unspecified; Z79.4 Long term (current) use of insulin
CPT/HCPCS: 36415; 80053; 80061; 81001; 82043; 83036; 84443; 85025; 87086; 87088; 87186

== ENCOUNTER 2022-10-03 08:00 | Outpatient (REF) | payer MEDICARE, SELFPAY ==
--- NOTE | ~2022-10-03 | MR_ITS ---
EXAMINATION: MR head/brain wo con CLINICAL INFORMATION: Subacute stroke COMPARISON: CT angiography head 05/13/2022, MRI brain 05/13/2022. TECHNIQUE: Routine unenhanced MRI of the brain. FINDINGS: Diffusion-weighted images demonstrate no evidence of acute infarcts. Focal encephalomalacia is again noted within the parasagittal left vicki at the pontomedullary junction unchanged compared with 05/13/2022. Moderate-marked diffuse commensurate prominence of ventricles and sulci is visualized in a minimal number scattered supratentorial subcortical and periventricular white matter punctate T2 hyperintensities are visualized and have the appearance of minimal chronic microangiopathic ischemic changes. Susceptibility weighted images reveal no evidence of acute or chronic hemorrhage within the brain parenchyma. The craniocervical junction cerebellar tonsils are normal in appearance. No suspicious marrow abnormalities identified. Grossly normal flow-related signal intensity within the major intracranial vessels and dural sinuses. Mucosal thickening and retained secretions are present in left frontal sinus similar to 05/13/2022. A left ocular lens extraction is visualized. Minimal retained secretions are present in the left maxillary sinus. MR/MR head/brain wo con IMPRESSION: *No acute intracranial abnormalities. *Chronic left pontomedullary lacunar infarct unchanged compared with 05/13/2022. *The punctate pontine mesencephalic junction lacunar infarct identified on the comparison study of 05/13/2022 which was consistent with an acute infarct at that time is without a definitive correlate on the current examination.
== END 2022-10-03 08:01 | disposition home or self-care (01) ==
LOC: HO.MRI 08:00
PROVIDERS: PCP Nurse Practitioner Family; Visit Provider Psychiatry & Neurology Neurology
DX: Z86.73 Personal history of transient ischemic attack (TIA), and cerebral infarction without residual deficits (principal)
CPT/HCPCS: 70551

== ENCOUNTER → 2022-11-19 15:27 | Outpatient (BNVA) | payer MEDICARE, SELFPAY | PROVIDERS: PCP Nurse Practitioner Family; Visit Provider Surgery Vascular Surgery | DX: I73.9 Peripheral vascular disease, unspecified (principal); E11.42 Type 2 diabetes mellitus with diabetic polyneuropathy; E11.22 Type 2 diabetes mellitus with diabetic chronic kidney disease; I12.9 Hypertensive chronic kidney disease with stage 1 through stage 4 chronic kidney disease, or unspecified chronic kidney disease; N18.2 Chronic kidney disease, stage 2 (mild); Z86.73 Personal history of transient ischemic attack (TIA), and cerebral infarction without residual deficits | CPT/HCPCS: 99202 ==

== ENCOUNTER 2022-12-03 13:51 | Outpatient (REF) | payer MEDICARE, SELFPAY ==
--- NOTE | ~2022-12-03 | US_ITS ---
EXAMINATION: NONINVASIVE ASSESSMENT OF THE ARTERIES OF BOTH LOWER EXTREMITIES CLINICAL INFORMATION: Peripheral vascular disease. COMPARISON: None. TECHNIQUE: Segmental ankle pulse volume recording, pressure measurement at the ankle and ankle brachial indices were obtained of the lower extremity arterial system bilaterally. In addition, bilateral lower extremity duplex ultrasound was performed with velocity measurements and waveform analysis in the common femoral arteries, profunda femoris arteries, proximal mid and distal superficial femoral arteries, popliteal arteries and tibial vessels. This study was performed at rest only. FINDINGS: a) AT REST: 1. The ankle-brachial indices are: Right 1.18 and left 1.14. >0.97-1.25 = normal - no significant arterial disease. 0.75-0.96 = mild peripheral arterial disease. 0.5-0.74 = moderate peripheral arterial disease. <0.50 = severe peripheral arterial disease. 2. Segmental pressure at ankle: Normal. 3. PVR waveform at ankle: Normal. 4. Duplex exam. Velocities in cm/sec and phasicity as well as the presence of plaque are reported below. RIGHT LEG: Mild atherosclerotic plaque present throughout but good multiphasic waveforms are seen. Common Femoral: 110 Profunda Femoris: 70 Proximal SFA: 103 Mid SFA: 83 Distal SFA: 90 Popliteal: 74 Tibial: 49 LEFT LEG: Mild atherosclerotic plaque seen throughout but good multiphasic waveforms are seen. Common Femoral: 115 Profunda Femoris: 76 Proximal SFA: 131 Mid SFA: 89 Distal SFA: 118 Popliteal: 135 Tibial: 38 US/US arterial duplex LE BI IMPRESSION: No evidence of hemodynamically significant lower extremity peripheral arterial disease at rest.
--- NOTE | ~2022-12-03 | US_ITS ---
EXAMINATION: NONINVASIVE ASSESSMENT OF THE ARTERIES OF BOTH LOWER EXTREMITIES CLINICAL INFORMATION: Peripheral vascular disease. COMPARISON: None. TECHNIQUE: Segmental ankle pulse volume recording, pressure measurement at the ankle and ankle brachial indices were obtained of the lower extremity arterial system bilaterally. In addition, bilateral lower extremity duplex ultrasound was performed with velocity measurements and waveform analysis in the common femoral arteries, profunda femoris arteries, proximal mid and distal superficial femoral arteries, popliteal arteries and tibial vessels. This study was performed at rest only. FINDINGS: a) AT REST: 1. The ankle-brachial indices are: Right 1.18 and left 1.14. >0.97-1.25 = normal - no significant arterial disease. 0.75-0.96 = mild peripheral arterial disease. 0.5-0.74 = moderate peripheral arterial disease. <0.50 = severe peripheral arterial disease. 2. Segmental pressure at ankle: Normal. 3. PVR waveform at ankle: Normal. 4. Duplex exam. Velocities in cm/sec and phasicity as well as the presence of plaque are reported below. RIGHT LEG: Mild atherosclerotic plaque present throughout but good multiphasic waveforms are seen. Common Femoral: 110 Profunda Femoris: 70 Proximal SFA: 103 Mid SFA: 83 Distal SFA: 90 Popliteal: 74 Tibial: 49 LEFT LEG: Mild atherosclerotic plaque seen throughout but good multiphasic waveforms are seen. Common Femoral: 115 Profunda Femoris: 76 Proximal SFA: 131 Mid SFA: 89 Distal SFA: 118 Popliteal: 135 Tibial: 38 US/US VONDA complete IMPRESSION: No evidence of hemodynamically significant lower extremity peripheral arterial disease at rest.
== END 2022-12-03 13:52 | disposition home or self-care (01) ==
LOC: HO.US 13:51
PROVIDERS: PCP Nurse Practitioner Family; Visit Provider Surgery Vascular Surgery
DX: I70.213 Atherosclerosis of native arteries of extremities with intermittent claudication, bilateral legs (principal)
CPT/HCPCS: 93923; 93925

== ENCOUNTER → 2023-01-02 10:06 | Outpatient (BNVA) | payer MEDICARE, SELFPAY | PROVIDERS: PCP Nurse Practitioner Family; Visit Provider Surgery Vascular Surgery | DX: I73.9 Peripheral vascular disease, unspecified (principal); I63.9 Cerebral infarction, unspecified; E11.65 Type 2 diabetes mellitus with hyperglycemia; E11.42 Type 2 diabetes mellitus with diabetic polyneuropathy; E11.29 Type 2 diabetes mellitus with other diabetic kidney complication; E11.22 Type 2 diabetes mellitus with diabetic chronic kidney disease; I13.10 Hypertensive heart and chronic kidney disease without heart failure, with stage 1 through stage 4 chronic kidney disease, or unspecified chronic kidney disease; N18.2 Chronic kidney disease, stage 2 (mild); Z79.4 Long term (current) use of insulin | CPT/HCPCS: 99212 ==

== ENCOUNTER 2023-01-14 10:54 | Outpatient (REF) | payer MEDICARE, SELFPAY ==
[2023-01-14 13:58] LABS: MANUAL DIFF FLAG NO
[2023-01-14 14:03] LABS: Appearance Urine Cloudy; Color Urine Yellow; Glucose Urine UA 500 mg/dL (Negative); Leukocyte Esterase Urine Trace (Negative); Nitrite Urine Negative (Negative); PH 7.5 (5.0-9.0); Specific Gravity - Urine >= 1.030 (1.005-1.025); UMIC TRIGGER UACC YES; Urine Blood Negative (Negative); Urine Ketones Negative (Negative); Urine Protein Trace mg/dL (Neg-Trace)
[2023-01-14 14:16] LABS: Basophils Percent Auto 0.5 % (0-2); Eosinophils Absolute Auto 0.1 X10*3/uL (0.0-0.4); Eosinophils Percent Auto 0.6 % (0-4); Hematocrit 50.1 % (42.0-52.0); Hemoglobin 16.5 g/dl (14.0-18.0); Imm Gran Abs Auto 0.06 X10*3/uL (0.00-0.03); Imm Gran Pct Auto 0.7 % (0.0-0.4); Lymphocytes Percent Auto 11.2 % (20-40); Mean Corpuscular HGB Conc 32.9 g/dl (31.0-36.0); Mean Corpuscular Hemoglobin 29.9 pg (27.0-33.0); Mean Corpuscular Volume 90.8 fL (80.0-98.0); Mean Platelet Volume 13.2 fL (9.4-12.4); Monocytes Absolute Auto 0.7 X10*3/uL (0.1-1.2); Monocytes Percent Auto 7.7 % (2-11); Neutrophils Absolute Auto 6.7 x10*3/uL (2.0-8.3); Neutrophils Percent Auto 79.3 % (45-73); Platelet Count 141 X10*3/uL (160-400); Red Blood Count 5.52 X10*6/uL (4.60-5.80); White Blood Count 8.5 X10*3/uL (4.8-10.8)
[2023-01-14 14:29] LABS: Creatinine Urine 87.61 mg/dL; Microalbum/Creatinine Ratio Ur 42.2 ug/mg cr
[2023-01-14 14:37] LABS: Bacteria Urine 4+ (None Seen); Hyaline Casts Urine 0-2 /LPF (0-2); RBC Urine 0-2 /HPF (0-2); Squamous Epithelial Cell Urine 0-2 /HPF (0-2); UACC Culture Trigger YES; WBC Urine >50 /HPF (0-5)
[2023-01-14 14:44] LABS: Alanine Aminotransferase 44 U/L (0-40); Alkaline Phosphatase 144 U/L (39-117); Anion Gap 12 (12-20); Aspartate Amino Transferase 36 U/L (5-37); Bilirubin Total 0.9 mg/dL (0.0-1.0); Blood Urea Nitrogen 24 mg/dL (9-16); Calcium 9.6 mg/dL (8.4-10.2); Carbon Dioxide 28 mmol/L (22-29); Chloride 108 mmol/L (96-108); Cholesterol 118 mg/dL; Estimated Glomerular Filt Rate > 60; Glucose Fasting 60 mg/dL (60-99); Glucose Random 60 mg/dL (60-115); HDL Cholesterol 47 mg/dL; LDL Cholesterol Calculated 62 mg/dl; Potassium 4.5 mmol/L (3.3-5.1); Sodium 143 mmol/L (135-145); Total Protein 6.2 g/dL (6.5-8.0); Triglycerides 45 mg/dL
[2023-01-14 14:50] LABS: Prostate Specific Antigen Scr 3.51 ng/mL (<0.05-4.0); TSH reflex Free T4 1.37 uIU/mL (0.32-4.0)
== END 2023-01-14 10:55 | disposition home or self-care (01) ==
LOC: HO.HMGCLDS 10:54
PROVIDERS: PCP Nurse Practitioner Family; Visit Provider Nurse Practitioner Family
DX: E11.65 Type 2 diabetes mellitus with hyperglycemia (principal); R82.90 Unspecified abnormal findings in urine; Z79.4 Long term (current) use of insulin; Z12.5 Encounter for screening for malignant neoplasm of prostate
CPT/HCPCS: 36415; 80053; 80061; 81001; 81003; 82043; 84153; 84443; 85025; 87086; 87088; 87186

== ENCOUNTER 2023-01-20 09:09 | Outpatient (REF) | payer MEDICARE, SELFPAY ==
[2023-01-20 11:33] LABS: MANUAL DIFF FLAG NO
[2023-01-20 11:43] LABS: Basophils Absolute Auto 0.1 X10*3/uL (0.0-0.2); Basophils Percent Auto 1.1 % (0-2); Eosinophils Absolute Auto 0.1 X10*3/uL (0.0-0.4); Eosinophils Percent Auto 2.4 % (0-4); Hematocrit 50.1 % (42.0-52.0); Hemoglobin 16.7 g/dl (14.0-18.0); Imm Gran Abs Auto 0.03 X10*3/uL (0.00-0.03); Imm Gran Pct Auto 0.6 % (0.0-0.4); Lymphocytes Absolute Auto 1.1 X10*3/uL (1.2-4.9); Lymphocytes Percent Auto 20.1 % (20-40); Mean Corpuscular HGB Conc 33.3 g/dl (31.0-36.0); Mean Corpuscular Hemoglobin 30.3 pg (27.0-33.0); Mean Corpuscular Volume 90.8 fL (80.0-98.0); Mean Platelet Volume 12.3 fL (9.4-12.4); Monocytes Absolute Auto 0.5 X10*3/uL (0.1-1.2); Monocytes Percent Auto 9.6 % (2-11); Neutrophils Absolute Auto 3.6 x10*3/uL (2.0-8.3); Neutrophils Percent Auto 66.2 % (45-73); Platelet Count 147 X10*3/uL (160-400); Red Blood Count 5.52 X10*6/uL (4.60-5.80); Red Cell Distribution Width 14.4 % (11.0-16.0); White Blood Count 5.4 X10*3/uL (4.8-10.8)
[2023-01-20 15:16] LABS: Alanine Aminotransferase 54 U/L (0-40); Albumin Level 4.1 g/dL (3.5-5.0); Alkaline Phosphatase 147 U/L (39-117); Anion Gap 16 (12-20); Aspartate Amino Transferase 45 U/L (5-37); Bilirubin Total 1.2 mg/dL (0.0-1.0); Blood Urea Nitrogen 29 mg/dL (9-16); Carbon Dioxide 26 mmol/L (22-29); Chloride 105 mmol/L (96-108); Cholesterol 139 mg/dL; Estimated Glomerular Filt Rate > 60; Gamma Glutamyl Transpeptidase 370 U/L (11-51); Glucose Fasting 120 mg/dL (60-99); HDL Cholesterol 47 mg/dL; LDL Cholesterol Calculated 78 mg/dl; Potassium 4.5 mmol/L (3.3-5.1); Sodium 142 mmol/L (135-145); Total Protein 6.4 g/dL (6.5-8.0); Triglycerides 71 mg/dL
[2023-01-20 15:30] LABS: TSH reflex Free T4 2.58 uIU/mL (0.32-4.0)
[2023-01-20 16:41] LABS: Appearance Urine Cloudy; Color Urine Yellow; Glucose Urine UA >=1000 mg/dL (Negative); Leukocyte Esterase Urine Small (1+) (Negative); Nitrite Urine Negative (Negative); PH 7.5 (5.0-9.0); Specific Gravity - Urine >= 1.030 (1.005-1.025); UMIC TRIGGER UACC YES; Urine Blood Negative (Negative); Urine Ketones Negative (Negative); Urine Protein Negative (Neg-Trace)
[2023-01-20 16:50] LABS: Bacteria Urine 4+ (None Seen); Hyaline Casts Urine 0-2 /LPF (0-2); RBC Urine 0-2 /HPF (0-2); Squamous Epithelial Cell Urine 0-2 /HPF (0-2); UACC Culture Trigger YES; WBC Urine >50 /HPF (0-5)
[2023-01-20 17:15] LABS: Creatinine Urine 79.32 mg/dL
[2023-01-28 14:09] LABS: Alk.Phos Iso. Macrohepatic 0 % (<=0); Alk.Phos Isoenzymes Bone 31 % (28-66); Alk.Phos Isoenzymes Intest 0 % (1-24); Alk.Phos Isoenzymes Liver 69 % (25-69); Alk.Phos Isoenzymes Placental 0 % (<=0); Alk.Phos Isoenzymes Total 139 U/L (35-144)
== END 2023-01-20 09:10 | disposition home or self-care (01) ==
LOC: HO.HMGCLDS 09:09
PROVIDERS: PCP Nurse Practitioner Family; Visit Provider Nurse Practitioner Family
DX: E11.65 Type 2 diabetes mellitus with hyperglycemia (principal); E11.29 Type 2 diabetes mellitus with other diabetic kidney complication; R74.8 Abnormal levels of other serum enzymes; Z79.4 Long term (current) use of insulin; R82.90 Unspecified abnormal findings in urine
CPT/HCPCS: 36415; 80053; 80061; 81001; 82043; 82977; 84080; 84443; 85025; 87086; 87088; 87186

== ENCOUNTER 2023-03-07 09:39 | Outpatient (REF) | payer MEDICARE, SELFPAY ==
[2023-03-07 09:52] LABS: MANUAL DIFF FLAG NO
[2023-03-07 10:00] LABS: Basophils Absolute Auto 0.1 X10*3/uL (0.0-0.2); Basophils Percent Auto 1.2 % (0-2); Eosinophils Absolute Auto 0.2 X10*3/uL (0.0-0.4); Eosinophils Percent Auto 3.2 % (0-4); Hemoglobin 17.6 g/dl (14.0-18.0); Imm Gran Abs Auto 0.03 X10*3/uL (0.00-0.03); Imm Gran Pct Auto 0.5 % (0.0-0.4); Lymphocytes Absolute Auto 1.3 X10*3/uL (1.2-4.9); Lymphocytes Percent Auto 21.8 % (20-40); Mean Corpuscular HGB Conc 33.8 g/dl (31.0-36.0); Mean Corpuscular Hemoglobin 31.1 pg (27.0-33.0); Mean Corpuscular Volume 91.9 fL (80.0-98.0); Mean Platelet Volume 12.2 fL (9.4-12.4); Monocytes Absolute Auto 0.7 X10*3/uL (0.1-1.2); Monocytes Percent Auto 11.1 % (2-11); Neutrophils Absolute Auto 3.6 x10*3/uL (2.0-8.3); Neutrophils Percent Auto 62.2 % (45-73); Platelet Count 137 X10*3/uL (160-400); Red Blood Count 5.66 X10*6/uL (4.60-5.80); Red Cell Distribution Width 14.4 % (11.0-16.0); White Blood Count 5.9 X10*3/uL (4.8-10.8)
[2023-03-07 10:27] LABS: Alanine Aminotransferase 45 U/L (0-40); Albumin Level 4.3 g/dL (3.5-5.0); Alkaline Phosphatase 159 U/L (39-117); Anion Gap 14 (12-20); Aspartate Amino Transferase 47 U/L (5-37); Bilirubin Total 1.2 mg/dL (0.0-1.0); Blood Urea Nitrogen 29 mg/dL (9-16); Calcium 10.1 mg/dL (8.4-10.2); Carbon Dioxide 25 mmol/L (22-29); Chloride 107 mmol/L (96-108); Estimated Glomerular Filt Rate > 60; Glucose Random 118 mg/dL (60-115); Potassium 4.2 mmol/L (3.3-5.1); Sodium 142 mmol/L (135-145); Total Protein 7.3 g/dL (6.5-8.0)
== END 2023-03-07 09:40 | disposition home or self-care (01) ==
LOC: HO.LAB 09:39
PROVIDERS: PCP Nurse Practitioner Family; Visit Provider Internal Medicine
DX: Z85.038 Personal history of other malignant neoplasm of large intestine (principal)
CPT/HCPCS: 36415; 80053; 85025

== ENCOUNTER 2023-03-10 07:46 | Outpatient (REF) | payer MEDICARE, SELFPAY ==
--- NOTE | ~2023-03-10 | CT_ITS ---
EXAMINATION: CT ABDOMEN AND PELVIS WITH CONTRAST CLINICAL INFORMATION: Restaging colon cancer. COMPARISON: CT scans dated November 11, 2019 and March 22, 2019. TECHNIQUE: Multidetector volumetric images were obtained from the superior aspect of the liver through the pubic symphysis following administration 85 mL of Omnipaque 350 intravenous contrast. Sagittal and coronal reformatted images were obtained on the technologist's workstation. Oral contrast: No This CT examination was performed using dose optimization techniques as appropriate, variously including the following: *Automated exposure control *Adjustment of mA and/or kV according to patient size (this includes techniques or standardized protocols for targeted exams where dose is matched to indication/reason for exam; i.e. extremities or head) *Use of iterative reconstruction technique DLP: 593 mGy-cm FINDINGS: LUNG BASES: The lung bases appear clear, with no evidence of inflammation or nodules. LIVER, GALLBLADDER, AND BILIARY TREE: Moderate segment 2/3 and 5/6/7 biliary ductal dilation to near the level of the confluence, at which location there is a suggestion of subtle, poorly defined, slightly hypodense neoplasm which may contract the capsule of the liver near the aren hepatis. This finding appears new compared with November 11, 2019. Contracted gallbladder containing a small stone. No evidence of pericholecystic inflammatory change. PANCREAS: Unremarkable SPLEEN: Unremarkable ADRENAL GLANDS: Unremarkable KIDNEYS AND URETERS: The kidneys appear unremarkable in size, shape, and attenuation. No hydronephrosis, hydroureter, or calculi seen. BLADDER: Suspect mild muscular hypertrophy. GASTROINTESTINAL TRACT: Status post ileocolostomy with associated anastomotic sabina, unchanged. No evidence of locally recurrent tumor. ABDOMINAL WALL: No significant hernia is appreciated. LYMPH NODES: No evidence of adenopathy by size criteria. Subcentimeter portacaval and periportal nodes. VASCULAR: Unremarkable PELVIC VISCERA: Mildly enlarged prostate. OSSEOUS STRUCTURES: No lytic or sclerotic bony lesion identified. CT/CT abdomen pelvis w IV con IMPRESSION: Moderate segment 2/3 and 5/6/7 biliary ductal dilation to near the level of the confluence, at which location there is a suggestion of subtle, poorly defined, slightly hypodense neoplasm which may contract the capsule of the liver near the aren hepatis. This finding appears new compared with November 11, 2019. Differential diagnosis includes, but is not limited to, cholangiocarcinoma and, less likely, metastatic colon cancer, etc. If further imaging is clinically desired, MRI may be of use. Additional findings, as above.
--- NOTE | ~2023-03-10 | CT_ITS ---
EXAMINATION: CT CHEST WITH CONTRAST CLINICAL INFORMATION: Surveillance COMPARISON: CT chest 03/30/2019 TECHNIQUE: Multidetector volumetric CT imaging of the chest was obtained after the administration of 85 mL of Omnipaque 350 intravenous contrast without immediate adverse reactions. Axial MIP volume rendering provided. Sagittal and coronal reformatted images were obtained. This CT examination was performed using dose optimization techniques as appropriate, variously including the following: *Automated exposure control *Adjustment of mA and/or kV according to patient size (this includes techniques or standardized protocols for targeted exams where dose is matched to indication/reason for exam; i.e. extremities or head) *Use of iterative reconstruction technique DLP: 593 mGy-cm for both the CT chest and abdomen pelvis, reported separately FINDINGS: CHEST WALL/AXILLA: No axillary lymphadenopathy. Trace symmetric gynecomastia. LUNGS: Respiratory motion limits evaluation of the pulmonary parenchyma and could obscure subtle nodules. Dependent bibasilar groundglass likely reflecting atelectasis. Few scattered calcified pulmonary granulomas, one new from prior in the right upper lobe, 7:114. No new suspicious or enlarging pulmonary nodule. Similar asymmetric elevation of the right hemidiaphragm. MEDIASTINUM: Heart is normal in size. No mediastinal lymphadenopathy. No hilar lymphadenopathy. CORONARY ARTERY CALCIFICATION: Coronary artery calcification is present. PLEURA: There is no pleural effusion. UPPER ABDOMEN: Intrahepatic biliary duct dilatation new from prior better characterized on concurrently performed dedicated CT abdomen pelvis, please refer to concurrently separately dictated report for complete evaluation. OSSEOUS STRUCTURES: Unremarkable. CT/CT chest w IV con IMPRESSION: 1. Respiratory motion limits evaluation of the pulmonary parenchyma and could obscure subtle nodules. No new suspicious or enlarging pulmonary nodule within limitations. 2. Intrahepatic biliary duct dilatation new from prior better characterized on concurrently performed dedicated CT abdomen pelvis, please refer to concurrently separately dictated report for complete evaluation. 3. Coronary artery calcification is present. Recommend correlation with cardiac risk factors.
[2023-03-10] MEDS: iohexoL 350 MG/ML 100 ML INFUS..BTL IV (08:55)
== END 2023-03-10 07:47 | disposition home or self-care (01) ==
LOC: HO.CT 07:46
PROVIDERS: Visit Provider Internal Medicine
DX: Z85.038 Personal history of other malignant neoplasm of large intestine (principal)
CPT/HCPCS: 71260; 74177; Q9967

== ENCOUNTER 2023-03-27 10:25 | Day surgery (SDC) | payer MEDICARE, SELFPAY ==
[2023-01-31 14:24] VITALS: BMI 28.1
--- NOTE | 2023-02-03 11:03 | P.CONAN_ITS ---
HPI - Anesthesia Eval Consult details Narrative: 67yo M for Upper Endoscopy and Colonoscopy s/p [place] 04/2022 with [facility] PMFSH Active Problems Active Problems: All Active Problems (Updated 01/14/23 @ 18:07 by STACEY Morrissey) Elevated alkaline phosphatase level (Acute) Low platelet count (Acute) Fatty liver (Acute) PAD (peripheral artery disease) (Acute) Decreased dorsalis pedis pulse (Acute) History of colon cancer (Chronic) Family history of pancreatic cancer (Acute) Obstructive sleep apnea (Acute) Type 2 diabetes mellitus with hyperglycemia, with long-term current use of insulin (Acute) Physical exam (Acute) Screening PSA (prostate specific antigen) (Acute) Pre-op evaluation (Acute) Murmur (Acute) Abnormal EKG (Acute) Type 2 diabetes mellitus with other diabetic kidney complication (Acute) Proteinuria (Acute) Physical exam (Acute) Screening PSA (prostate specific antigen) (Acute) Restless leg (Acute) Immunizations incomplete (Acute) Screening for tuberculosis (Acute) Elevated alkaline phosphatase level (Acute) Skin lesion (Acute) Screening PSA (prostate specific antigen) (Acute) Weakness (Acute) Elevated hemoglobin (Acute) Ataxia (Acute) Polycythemia (Acute) Right hand weakness (Acute) Right leg weakness (Acute) Daytime sleepiness (Acute) CKD (chronic kidney disease) stage 2, GFR 60-89 ml/min (Acute) Type 2 diabetes mellitus with diabetic polyneuropathy (Acute) Hypertension (Acute) Dyslipidemia (Acute) Obesity (BMI 30.0-34.9) (Acute) Neuropathy (Acute) Diabetes mellitus (Acute) Past Medical History Medical History (Updated 01/14/23 @ 18:07 by STACEY Morrissey) Acute embolic stroke Cataract CKD (chronic kidney disease) stage 2, GFR 60-89 ml/min Colon cancer Diabetes mellitus Dyslipidemia Elevated alkaline phosphatase level Erectile dysfunction Fuchs' corneal dystrophy Hypertension Hypertensive nephrosclerosis Neuropathy Obesity (BMI 30.0-34.9) Persistent proteinuria RLS (restless legs syndrome) Sleep apnea Stroke 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 Brother Diabetes Maternal Grandmother Diabetes Family history of problems with anesthesia: No Surgical History Surgical History History of colon resection (~04/20/19) History of colonoscopy (~03/15/19) History of esophagogastroduodenoscopy (EGD) Hx of cornea transplant Hx of left cataract extraction Social History Social History Household Members: None [facility] Are you a primary acute care clinical nurse specialist to a significant other at home: No Do you presently have visiting nurse or other home services: No Alcohol intake: never Patient Tobacco Use Status: Never used Tobacco e-Cigarette/Vaping Use: Never Used Second Hand Smoke Exposure: No Advance Directives Date on File: 05/14/22 service: No Current occupational status: retired Cognitive needs: No Hearing needs: No Vision needs: No Meds Allergies Allergy/AdvReac Type Severity Reaction Status Date / Time No Known Allergies Allergy Verified 01/14/23 09:53 [No Known Allergies*] Home Medications Medication Instructions Recorded Confirmed Last Taken Type blood sugar diagnostic #10 ea 07/28/20 01/14/23 Unknown History multivitamin 1 tab PO DAILY 05/01/21 01/14/23 05/13/22 History blood-glucose meter (OneTouch 09/21/21 01/14/23 Unknown History Ultra2 Meter) omega-3 fatty acids 1,000 mg PO DAILY 05/16/22 01/14/23 Unknown History Exam Exam Date and Time: February 03, 2023 1103 Height,Weight and Vital Signs: Height 5 ft 10 in Weight 88.904 kg Pertinent Lab Results Pertinent Lab Results: Laboratory Tests 01/20/23 01/20/23 09:21 09:21 WBC 5.4 Hgb 16.7 Hct 50.1 Plt Count 147 L Sodium 142 Potassium 4.5 Chloride 105 Carbon Dioxide 26 BUN 29 H Creatinine 1.06 Narrative Narrative: EKG 04/2022 Vent. Rate : 082 BPM ? ? Atrial Rate : 082 BPM ?? P-R Int : 156 ms? QRS Dur : 072 ms ? ? QT Int : 388 ms ? ? ? P-R-T Axes : 034 -25 035 degrees ?? QTc Int : 453 ms ? Normal sinus rhythm with sinus arrhythmia Inferior infarct (cited on or before 06-APR-2019) Abnormal ECG When compared with ECG of 13-MAY-2022 11:41, Criteria for Septal infarct are no longer Present ECHO 04/2022 Conclusions: - 1. Hyperdynamic LV systolic function with? mild left ? ventricular hypertrophy and impaired relaxation filling pattern? 2. Limited visualization of cardiac valves with normal cardiac ? valvular Doppler ? 3. No gross pericardial effusion ? ?? Assessment and Plan Assessment Anesthesia Assessment: Chart Reviewed Final Anesthetic Review Family History of Problems with Anesthesia: No
--- NOTE | 2023-03-27 09:18 | MHC.SHP ---
Pre-Procedural Eval Section A Date of Service: 03/27/23 Section B Chief Complaint: Personal history of other malignant neoplasm Details of Present Illness: colonoscopy due to hx of CRC and EGD due to new liver lesion Present Medications: see Short Stay Collaborative assessment Medical History: Significant History (Cataract CKD (chronic kidney disease) stage 2, GFR 60-89 ml/min Colon cancer Diabetes mellitus Dyslipidemia Erectile dysfunction Family history of pancreatic cancer Fuchs' corneal dystrophy History of colon cancer Hypertension Hypertensive nephrosclerosis Neuropathy Obesity (BMI 30.0-34.9) Persisten) History of Previous Operations: Relevant previous surgery/procedure and date(s) (History of colon resection (~04/20/19) History of colonoscopy (~03/15/19) History of esophagogastroduodenoscopy (EGD) Hx of cornea transplant Hx of left cataract extraction) Allergies: Allergies Allergy/AdvReac Type Severity Reaction Status Date / Time No Known Allergies Allergy Verified 01/14/23 09:53 [No Known Allergies*] Review of Systems Sugical H&P ROS: Negative: Constitution, Cardiovascular, Respiratory, Neurological, Psychiatric, Hem-Onc, Allergic/Immunologic, Gastrointestinal, Genitourinary, Musculoskeletal, Integumentary, Endocrine and Eyes/Ears/Nose/Throat Exam Surgical H&P Exam: Normal: HEENT, Normal: Heart, Normal: Lungs, Normal: Extremities, Normal: Abdomen, Normal: Skin and Normal: Neurological Plan Diagnosis/Plan: Unchanged I have reviewed the history and physical and performed a pertinent physical examination on my patient. No changes have occurred unless specified. Time Spent With Patient Time: Total time managing care of this patient today ____ minutes.
[2023-03-27 10:45] VITALS: BP 158/71; PULSE 80; RESP 16; TEMP 36.7
[2023-03-27 10:55] LABS: Glucose, Whole Blood 75 mg/dL (60-115)
[2023-03-27] MEDS: Lactated Ringers 1,000 ML 100 ML IVCONT (11:00)
--- NOTE | 2023-03-27 11:02 | P.CONAN_ITS ---
HPI - Anesthesia Eval Consult details Narrative: EGD PMFSH Active Problems Active Problems: All Active Problems (Updated 02/11/23 @ 11:49 by Leigha Tolbert MD) Elevated alkaline phosphatase level (Acute) Low platelet count (Acute) Fatty liver (Acute) PAD (peripheral artery disease) (Acute) Decreased dorsalis pedis pulse (Acute) History of colon cancer (Chronic) Family history of pancreatic cancer (Acute) Obstructive sleep apnea (Acute) Type 2 diabetes mellitus with hyperglycemia, with long-term current use of insulin (Acute) Physical exam (Acute) Screening PSA (prostate specific antigen) (Acute) Pre-op evaluation (Acute) Murmur (Acute) Abnormal EKG (Acute) Type 2 diabetes mellitus with other diabetic kidney complication (Acute) Proteinuria (Acute) Physical exam (Acute) Screening PSA (prostate specific antigen) (Acute) Restless leg (Acute) Immunizations incomplete (Acute) Screening for tuberculosis (Acute) Elevated alkaline phosphatase level (Acute) Skin lesion (Acute) Screening PSA (prostate specific antigen) (Acute) Weakness (Acute) Elevated hemoglobin (Acute) Ataxia (Acute) Polycythemia (Acute) Right hand weakness (Acute) Right leg weakness (Acute) Daytime sleepiness (Acute) CKD (chronic kidney disease) stage 2, GFR 60-89 ml/min (Acute) Type 2 diabetes mellitus with diabetic polyneuropathy (Acute) Hypertension (Acute) Dyslipidemia (Acute) Obesity (BMI 30.0-34.9) (Acute) Neuropathy (Acute) Diabetes mellitus (Acute) Past Medical History Medical History Acute embolic stroke Cataract CKD (chronic kidney disease) stage 2, GFR 60-89 ml/min Colon cancer Diabetes mellitus Dyslipidemia Elevated alkaline phosphatase level Erectile dysfunction Fuchs' corneal dystrophy Hypertension Hypertensive nephrosclerosis Neuropathy Obesity (BMI 30.0-34.9) Persistent proteinuria RLS (restless legs syndrome) Sleep apnea Stroke 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 Brother Diabetes Maternal Grandmother Diabetes Family history of problems with anesthesia: No Surgical History Surgical History History of colon resection (~04/20/19) History of colonoscopy (~03/15/19) History of esophagogastroduodenoscopy (EGD) Hx of cornea transplant Hx of left cataract extraction History of Problems with Anesthesia: No Social History Social History Household Members: None Housing: Condominium Are you a primary wound care center consultant to a significant other at home: No Do you presently have visiting nurse or other home services: No Alcohol intake: never Patient Tobacco Use Status: Never used Tobacco e-Cigarette/Vaping Use: Never Used Second Hand Smoke Exposure: No Use of substances other than those prescribed or required for medical reasons: No Are you DNR?: No Advance Directives: No Advance Directives Information Provided: Yes Advance Directives Date on File: 05/14/22 service: No Current occupational status: retired Cognitive needs: No Hearing needs: No Vision needs: No Meds Allergies Allergy/AdvReac Type Severity Reaction Status Date / Time No Known Allergies Allergy Verified 01/14/23 09:53 [No Known Allergies*] Active Medications: Current Medications Lactated Ringer's (Lr) 1,000 mls @ 100 mls/hr IVCONT .Q10H RADHA Last Admin: 03/27/23 11:00 Dose: 100 mls/hr Home Medications Medication Instructions Recorded Confirmed Last Taken Type blood sugar diagnostic #10 ea 07/28/20 02/11/23 Unknown History multivitamin 1 tab PO DAILY 05/01/21 02/11/23 05/13/22 History blood-glucose meter (OneTouch 09/21/21 02/11/23 Unknown History Ultra2 Meter) omega-3 fatty acids 1,000 mg PO DAILY 05/16/22 02/11/23 Unknown History Exam Exam Date and Time: March 27, 2023 110 Height,Weight and Vital Signs: Height 5 ft 10 in Weight 88.904 kg Last Vital Signs Temp 97 F 03/27/23 10:49 Pulse 85 03/27/23 10:49 Resp 19 03/27/23 10:49 BP 100/50 L 03/27/23 10:49 Pulse Ox 98 03/27/23 10:49 O2 Del Method Room Air 03/27/23 10:49 Pertinent Lab Results Pertinent Lab Results: Laboratory Tests 03/27/23 10:51 POC Glucose 75 Airway Mallampati Class: III TM Dist: >3cm Neck ROM: Limited Heart: rrr Lungs: cta Assessment and Plan Final Anesthetic Review Family History of Problems with Anesthesia: No History of Problems with Anesthesia: No NPO: Yes ASA Class: IV Final Preanesthetic Review: No Changes in Pt Med Stat, Meds/Allgs Chart Reviewed, Consent Obtained/Reviewed and Anes Risks/Benef Reviewed Patient Risk: High Procedure Risk: Intermediate Anesthetic Plan Anesthetic Plan: MAC: and Agree w/ Assess. and Plan Disposition: Standard PACU
--- NOTE | 2023-03-27 11:06 | W.PM.OPN ---
Operative Note Operative Note Date of Service: 03/27/23 Narrative: Operative Information Procedure Description: EGD, Colonoscopy Indication: Hx of colon cancer, abn liver lesion Anesthesia: MAC FLEXIBLE TRANSORAL UPPER GASTROINTESTINAL ENDOSCOPY AND COLONOSCOPY PROCEDURE NOTE UPPER ENDOSCOPY Consent: Indications for the procedure and potential complications of bleeding, perforation, reaction to medications and missed diagnosis were discussed with the patient and informed consent was obtained. Instrument: Olympus GIF H 190 J mid size upper endoscope Monitoring: Vital signs and clinical assessment, continuous EKG monitoring, Pulse oximetry, Carbon Dioxide monitoring and blood pressure monitoring were done throughout the procedure. Procedure: The patient was placed in the left lateral decubitis position and pre-procedure medications were administered and a bite block was placed. The endoscope was inserted into the mouth and advanced under direct vision to the third part of duodenum. A careful inspection was made as the upper endoscope was withdrawn including a retroflexed examination of the proximal stomach; Findings and interventions are described below. Findings: Larynx:normal Esophagus: GE junction at 38 cm, diaphragm hiatus at 38 cm, mild esophagitis, bx taken from GEJ Stomach: Diffuse erythema. Biopsies were obtained. Grade 2 flap valve on retroflexed examination of the cardia. Duodenum: erosive duodenitis, bx taken, papilla seen and appeared normal Intervention: Biopsies as noted above COLONOSCOPY Instrument: Olympus variable stiffness pediatric scope 190L Colonoscopy Monitoring: Vital signs and clinical assessment, continuous EKG monitoring, Pulse oximetry, Carbon Dioxide monitoring and blood pressure monitoring were done throughout the procedure. Procedure: The patient was placed in the left lateral decubitis position and pre-procedure medications were administered. After a digital rectal examination of the ano-rectum, the video colonoscope was inserted into the rectum and advanced through the colon to the transverse colon The colonoscope was slowly withdrawn in a retrograde panoramic fashion and the colon mucosa was carefully examined including a retroflexed view of the rectum. Findings and interventions are described below. Procedure Difficulty: easy Findings: ileocolonic anastomosis- not reached due to poor prep Transverse Colon -normal Descending Colon:normal Sigmoid Colon: normal Rectum: Retroflexion not done due to poor prep Anorectum - normal Colon preparation: Mission Bowel Preparation Scale Right colon; 0 Transverse colon: 0 Left colon; 0-1 (0 = Unprepared colon segment with mucosa not seen due to solid stool that cannot be cleared. 1 = Portion of mucosa of the colon segment seen, but other areas of the colon segment not well seen due to staining, residual stool and/or opaque liquid. 2 = Minor amount of residual staining, small fragments of stool and/or opaque liquid, but mucosa of colon segment seen well. 3 = Entire mucosa of colon segment seen well with no residual staining, small fragments of stool or opaque liquid) Impression and Post Procedure Diagnosis: Endoscopy Findings: erosive duodenitis gastritis Colonoscopy Findings: poor prep Plan: Await Pathology results Repeat Colonoscopy in 4-6 weeks with attnetion to prep, consider 2 d prep and week of miralax BID before hand High fiber diet leaflet avoid straining at stool, epsom salts and sitz bath, anusol supps or cream if H pylori pos then treat send PPI Above findings were reviewed with the patient and relevant handouts were provided if indicated.
[2023-03-27 11:30] VITALS: BP 91/53; PULSE 70; RESP 22; TEMP 36.1; O2SAT 98
[2023-03-27 11:45] VITALS: BP 118/57; PULSE 58; RESP 16; TEMP 36.1; O2SAT 97
== END 2023-03-27 13:49 | disposition home or self-care (01) ==
PROVIDERS: PCP Nurse Practitioner Family; Visit Provider Internal Medicine Gastroenterology
PROC: (CPT 43239; principal; 2023-03-27 10:40)
DX: Z12.11 Encounter for screening for malignant neoplasm of colon (principal); Z85.038 Personal history of other malignant neoplasm of large intestine; K76.9 Liver disease, unspecified; K29.70 Gastritis, unspecified, without bleeding; K29.80 Duodenitis without bleeding; K20.80 Other esophagitis without bleeding; G47.33 Obstructive sleep apnea (adult) (pediatric); K44.9 Diaphragmatic hernia without obstruction or gangrene; Z90.49 Acquired absence of other specified parts of digestive tract; Z98.0 Intestinal bypass and anastomosis status; E78.5 Hyperlipidemia, unspecified; I12.9 Hypertensive chronic kidney disease with stage 1 through stage 4 chronic kidney disease, or unspecified chronic kidney disease; E11.22 Type 2 diabetes mellitus with diabetic chronic kidney disease; N18.2 Chronic kidney disease, stage 2 (mild); E11.42 Type 2 diabetes mellitus with diabetic polyneuropathy; Z79.4 Long term (current) use of insulin; Z79.82 Long term (current) use of aspirin; Z79.899 Other long term (current) drug therapy
CPT/HCPCS: 43239; G0105; 82947; 88305; 88342

== ENCOUNTER → 2023-03-27 10:25 | Outpatient (BNV) | payer MEDICARE, SELFPAY | PROVIDERS: PCP Nurse Practitioner Family; Visit Provider Internal Medicine Gastroenterology | DX: D13.4 Benign neoplasm of liver (principal); Z85.038 Personal history of other malignant neoplasm of large intestine; K29.90 Gastroduodenitis, unspecified, without bleeding; Z53.20 Procedure and treatment not carried out because of patient's decision for unspecified reasons | CPT/HCPCS: 43239; 45378 ==

== ENCOUNTER 2023-05-15 09:38 | Outpatient (REF) | payer MEDICARE, SELFPAY ==
--- NOTE | ~2023-05-15 | MR_ITS ---
EXAMINATION: MR ABDOMEN WITHOUT AND WITH CONTRAST CLINICAL INFORMATION: Hepatomegaly. Prior abnormal imaging. COMPARISON: CT abdomen/pelvis 03/10/2023 TECHNIQUE: MR abdomen was performed without and with use of 10 mL intravenous Gadavist gadolinium contrast. Postcontrast images are performed in multiphase dynamic sequences. Imaging was performed in 3 planes. FINDINGS: LUNG BASES: Elevated right hemidiaphragm. No pleural or pericardial effusion. LIVER, GALLBLADDER, AND BILIARY TREE: The liver is normal in size. Hepatic steatosis. Possible ill-defined soft tissue mass is seen at the bifurcation of the common hepatic duct measuring approximately 2.2 x 3.7 x 3.6 cm. Stones and sludge in the gallbladder. Hepatic vasculature is patent. PANCREAS: No ductal dilatation. SPLEEN: Not enlarged. ADRENAL GLANDS: No adrenal mass. KIDNEYS AND URETERS: The kidneys are symmetric in size and enhancement. No hydronephrosis or perinephric stranding. GASTROINTESTINAL TRACT: Imaged loops of small and large bowel are not obstructed. ABDOMINAL WALL: No significant hernia is appreciated. LYMPH NODES: No bulky abdominal lymphadenopathy. VASCULAR: Normal caliber abdominal aorta. MR/MR abdomen wo/w con IMPRESSION: Ill-defined mass at the common hepatic duct bifurcation measuring approximately 2.2 x 3.7 x 3.6 cm resulting in marked right versus left ductal dilatation. This could represent cholangiocarcinoma, however, metastatic disease related to colon cancer must be considered.
[2023-05-15] MEDS: gadobutroL 10 ML VIAL IVPUSH (11:46)
== END 2023-05-15 09:39 | disposition home or self-care (01) ==
LOC: HO.MRI 09:38
PROVIDERS: PCP Nurse Practitioner Family; Visit Provider Internal Medicine
DX: R16.0 Hepatomegaly, not elsewhere classified (principal)
CPT/HCPCS: 74183; A9585

== ENCOUNTER 2023-05-27 13:48 | Outpatient (REF) | payer MEDICARE, SELFPAY ==
[2023-05-27 16:14] LABS: Prothrombin Time 11.9 SEC (11.1-13.3)
[2023-05-27 16:28] LABS: Alanine Aminotransferase 37 U/L (0-40); Albumin Level 4.4 g/dL (3.5-5.0); Alkaline Phosphatase 156 U/L (39-117); Anion Gap 14 (12-20); Aspartate Amino Transferase 29 U/L (5-37); Bilirubin Total 1.2 mg/dL (0.0-1.0); Blood Urea Nitrogen 20 mg/dL (9-16); Calcium 9.8 mg/dL (8.4-10.2); Carbon Dioxide 24 mmol/L (22-29); Chloride 110 mmol/L (96-108); Estimated Glomerular Filt Rate > 60; Glucose Random 106 mg/dL (60-115); Potassium 4.5 mmol/L (3.3-5.1); Sodium 143 mmol/L (135-145); Total Protein 7.3 g/dL (6.5-8.0)
[2023-05-29 11:18] LABS: Carbohydrate Antigen 19-9 153 U/mL (<34)
== END 2023-05-27 13:49 | disposition home or self-care (01) ==
LOC: HO.HMGCLDS 13:48
PROVIDERS: PCP Nurse Practitioner Family; Visit Provider Internal Medicine Gastroenterology
DX: K75.81 Nonalcoholic steatohepatitis (NASH) (principal); Z85.038 Personal history of other malignant neoplasm of large intestine; K83.8 Other specified diseases of biliary tract
CPT/HCPCS: 36415; 80053; 82378; 85610; 86301

== ENCOUNTER 2023-05-29 07:20 | Day surgery (SDC) | payer MEDICARE, SELFPAY ==
[2023-05-27 08:22] VITALS: BMI 28.6
--- NOTE | 2023-05-28 13:13 | HO.ANESPROP2 ---
Documented by User: Glenny Landin NP 05/28/23 13:15 HPI - Anesthesia Eval Consult details Narrative: 68yo M for Colonoscopy s/p EGD and [place] 03/2023 with TIVA PMFSH Active Problems Active Problems: All Active Problems (Updated 05/27/23 @ 11:26 by Aligo MA) Elevated alkaline phosphatase level (Acute) Low platelet count (Acute) Fatty liver (Acute) PAD (peripheral artery disease) (Acute) Decreased dorsalis pedis pulse (Acute) History of colon cancer (Chronic) Family history of pancreatic cancer (Acute) Obstructive sleep apnea (Acute) Type 2 diabetes mellitus with hyperglycemia, with long-term current use of insulin (Acute) Physical exam (Acute) Screening PSA (prostate specific antigen) (Acute) Pre-op evaluation (Acute) Murmur (Acute) Abnormal EKG (Acute) Type 2 diabetes mellitus with other diabetic kidney complication (Acute) Proteinuria (Acute) Physical exam (Acute) Screening PSA (prostate specific antigen) (Acute) Restless leg (Acute) Immunizations incomplete (Acute) Screening for tuberculosis (Acute) Elevated alkaline phosphatase level (Acute) Skin lesion (Acute) Screening PSA (prostate specific antigen) (Acute) Weakness (Acute) Elevated hemoglobin (Acute) Ataxia (Acute) Polycythemia (Acute) Right hand weakness (Acute) Right leg weakness (Acute) Daytime sleepiness (Acute) CKD (chronic kidney disease) stage 2, GFR 60-89 ml/min (Acute) Type 2 diabetes mellitus with diabetic polyneuropathy (Acute) Hypertension (Acute) Dyslipidemia (Acute) Obesity (BMI 30.0-34.9) (Acute) Neuropathy (Acute) Diabetes mellitus (Acute) Past Medical History Medical History (Updated 05/29/23 @ 09:31 by Ronen Kaiser MD) Stroke Ulnar neuropathy at elbow Sleep apnea Acute embolic stroke Xerosis cutis CKD (chronic kidney disease) stage 2, GFR 60-89 ml/min Persistent proteinuria Hypertensive nephrosclerosis Elevated alkaline phosphatase level Cataract Fuchs' corneal dystrophy Colon cancer RLS (restless legs syndrome) Obesity (BMI 30.0-34.9) Dyslipidemia Type 2 diabetes mellitus with diabetic polyneuropathy Hypertension Neuropathy Diabetes mellitus Erectile dysfunction Family History Family History Mother History of pancreatic cancer Father No problems noted. Brother Diabetes Maternal Grandmother Diabetes Family history of problems with anesthesia: No Surgical History Surgical History History of esophagogastroduodenoscopy (EGD) Hx of left cataract extraction Hx of cornea transplant History of colonoscopy (~03/15/19) History of colon resection (~04/20/19) History of Problems with Anesthesia: No Social History Social History Household Members: None [facility] Are you a primary interior plant caretaker to a significant other at home: No Do you presently have visiting nurse or other home services: No Alcohol intake: never Patient Tobacco Use Status: Never used Tobacco e-Cigarette/Vaping Use: Never Used Second Hand Smoke Exposure: No Advance Directives Date on File: 05/14/22 service: No Current occupational status: retired Cognitive needs: No Hearing needs: No Vision needs: No Meds Allergies Allergy/AdvReac Type Severity Reaction Status Date / Time No Known Allergies Allergy Verified 01/14/23 09:53 [No Known Allergies*] Home Medications Medication Instructions Recorded Confirmed Last Taken Type blood sugar diagnostic #10 ea 07/28/20 02/11/23 Unknown History multivitamin 1 tab PO DAILY 05/01/21 02/11/23 05/13/22 History blood-glucose meter (OneTouch 09/21/21 02/11/23 Unknown History Ultra2 Meter) omega-3 fatty acids 1,000 mg PO DAILY 05/16/22 02/11/23 Unknown History Exam Exam Date and Time: May 28, 2023 1313 Height,Weight and Vital Signs: Height 5 ft 10 in Weight 90.265 kg Pertinent Lab Results Pertinent Lab Results: Laboratory Tests 03/07/23 05/27/23 09:51 14:11 WBC 5.9 Hgb 17.6 Hct 52.0 Plt Count 137 L Sodium 143 Potassium 4.5 Chloride 110 H Carbon Dioxide 24 BUN 20 H Creatinine 0.88 Narrative Narrative: ECHO 2021 Conclusions: - 1. Hyperdynamic LV systolic function with mild left ventricular hypertrophy and impaired relaxation filling pattern 2. Limited visualization of cardiac valves with normal cardiac valvular Doppler 3. No gross pericardial effusion Assessment and Plan Final Anesthetic Review Family History of Problems with Anesthesia: No History of Problems with Anesthesia: No Documented by User: Harjinder Cedeno MD 05/29/23 16:40 HPI - Anesthesia Eval Consult details Narrative: 68yo M for Colonoscopy s/p EGD and [place] 03/2023 with TIVA s/p CVA , right sided weakness PMFSH Past Medical History Medical History (Updated 05/29/23 @ 09:31 by Ronen Kaiser MD) Stroke Ulnar neuropathy at elbow Sleep apnea Acute embolic stroke Xerosis cutis CKD (chronic kidney disease) stage 2, GFR 60-89 ml/min Persistent proteinuria Hypertensive nephrosclerosis Elevated alkaline phosphatase level Cataract Fuchs' corneal dystrophy Colon cancer RLS (restless legs syndrome) Obesity (BMI 30.0-34.9) Dyslipidemia Type 2 diabetes mellitus with diabetic polyneuropathy Hypertension Neuropathy Diabetes mellitus Erectile dysfunction Family History Family History Mother History of pancreatic cancer Father No problems noted. Brother Diabetes Maternal Grandmother Diabetes Surgical History Surgical History History of esophagogastroduodenoscopy (EGD) Hx of left cataract extraction Hx of cornea transplant History of colonoscopy (~03/15/19) History of colon resection (~04/20/19) Social History Social History Household Members: None Housing: Condominium Are you a primary interior plant caretaker to a significant other at home: No Do you presently have visiting nurse or other home services: No Alcohol intake: never Patient Tobacco Use Status: Never used Tobacco e-Cigarette/Vaping Use: Never Used Second Hand Smoke Exposure: No Advance Directives Date on File: 05/14/22 service: No Current occupational status: retired Cognitive needs: No Hearing needs: No Vision needs: No Meds Allergies Allergy/AdvReac Type Severity Reaction Status Date / Time No Known Allergies Allergy Verified 01/14/23 09:53 [No Known Allergies*] Home Medications Medication Instructions Recorded Confirmed Last Taken Type blood sugar diagnostic #10 ea 07/28/20 02/11/23 Unknown History multivitamin 1 tab PO DAILY 05/01/21 02/11/23 05/13/22 History blood-glucose meter (OneTouch 09/21/21 02/11/23 Unknown History Ultra2 Meter) omega-3 fatty acids 1,000 mg PO DAILY 05/16/22 02/11/23 Unknown History Exam Airway Mallampati Class: IV Loose/Missing/Broken Teeth: Yes Assessment and Plan Assessment Anesthesia Assessment: Anesthesia Plan Discussed and Chart Reviewed Final Anesthetic Review NPO: Yes ASA Class: IV Final Preanesthetic Review: Meds/Allgs Chart Reviewed, Consent Obtained/Reviewed and Anes Risks/Benef Reviewed Patient Risk: Intermediate Procedure Risk: Intermediate Anesthetic Plan Anesthetic Plan: MAC: and Agree w/ Assess. and Plan Disposition: Standard PACU
[2023-05-29 07:49] LABS: Glucose, Whole Blood 58 mg/dL (60-115)
[2023-05-29 08:04] VITALS: BP 129/57; PULSE 63; RESP 18; TEMP 36.7; O2SAT 97; BMI 28.0
[2023-05-29 08:14] LABS: Glucose, Whole Blood 86 mg/dL (60-115)
[2023-05-29] MEDS: Dextrose 5 % and 0.9 % NaCl 1,000 ML 50 ML IVCONT (08:23)
[2023-05-29] MEDS: Lactated Ringers 1,000 ML 100 ML IVCONT (08:24)
--- NOTE | 2023-05-29 09:20 | P.HPSUR_ITS ---
Pre-Procedural Eval Section A Date of Service: 05/29/23 Section B Chief Complaint: Personal history of other malignant neoplasm of [place] Relevant Family History (Specify if Yes): No Relevant Social History: None Present Medications: see Short Stay Collaborative assessment Medical History: Significant History (Stroke Ulnar neuropathy at elbow Sleep apnea Acute embolic stroke Xerosis cutis CKD (chronic kidney disease) stage 2, GFR 60-89 ml/min Persistent proteinuria Hypertensive nephrosclerosis Elevated alkaline phosphatase level Cataract Fuchs' corneal dystrophy Colon cancer RLS (restless legs syndrome) O) History of Previous Operations: Relevant previous surgery/procedure and date(s) (History of esophagogastroduodenoscopy (EGD) Hx of left cataract extraction Hx of cornea transplant History of colonoscopy (~03/15/19) History of colon resection (~04/20/19)) Allergies: Allergies Allergy/AdvReac Type Severity Reaction Status Date / Time No Known Allergies Allergy Verified 01/14/23 09:53 [No Known Allergies*] Review of Systems Sugical H&P ROS: Negative: Constitution, Cardiovascular, Respiratory, Neurological, Psychiatric, Hem-Onc, Allergic/Immunologic, Gastrointestinal, Genitourinary, Musculoskeletal, Integumentary, Endocrine and Eyes/Ears/N ose/Throat Exam Surgical H&P Exam: Normal: HEENT, Normal: Heart, Normal: Lungs, Normal: Extremities, Normal: Abdomen, Normal: Skin and Normal: Neurological Plan Diagnosis/Plan: Unchanged I have reviewed the history and physical and performed a pertinent physical examination on my patient. No changes have occurred unless specified. Time Spent With Patient Time: Total time managing care of this patient today ____ minutes.
--- NOTE | 2023-05-29 09:29 | P.OP_ITS ---
Operative Note Operative Note Date of Service: 05/29/23 Narrative: Operative Information Procedure Description: Colonoscopy Indication: hx of colon cancer Anesthesia: MAC COLONOSCOPY Instrument: Olympus variable stiffness pediatric scope 190L Colonoscopy Monitoring: Vital signs and clinical assessment, continuous EKG monitoring, Pulse oximetry, Carbon Dioxide monitoring and blood pressure monitoring were done throughout the procedure. Colon withdrawal time was 8 minutes. Procedure: The patient was placed in the left lateral decubitis position and pre-procedure medications were administered. After a digital rectal examination of the ano-rectum, the video colonoscope was inserted into the rectum and advanced through the colon. The colonoscope was slowly withdrawn in a retrograde panoramic fashion and the colon mucosa was carefully examined including a retroflexed view of the rectum. Findings and interventions are described below. Procedure Difficulty: easy Findings: ileocolonic anastomosis- not reached due to poor prep Transverse Colon -normal Descending Colon:normal Sigmoid Colon: normal Rectum: Retroflexion not done due to poor prep Anorectum - normal Colon preparation: [place]ron Bowel Preparation Scale Right colon; 0 Transverse colon: 0 Left colon; 0-1 (0 = Unprepared colon segment with mucosa not seen due to solid stool that cannot be cleared. 1 = Portion of mucosa of the colon segment seen, but other areas of the colon segment not well seen due to staining, residual stool and/or opaque liquid. 2 = Minor amount of residual staining, small fragments of stool and/or opaque liquid, but mucosa of colon segment seen well. 3 = Entire mucosa of colon segment seen well with no residual staining, small fragments of stool or opaque liquid) Impression and Post Procedure Diagnosis: Colonoscopy Findings: poor prep Plan: High fiber diet leaflet Avoid straining at stool, epsom salts and sitz bath, anusol supps or cream Repeat Colonoscopy in 3-6 months, compliance with prep next, time, ate chicken yesterday Above findings were reviewed with the patient and relevant handouts were provided if indicated.
[2023-05-29 10:12] VITALS: BP 93/43; PULSE 63; RESP 16; TEMP 36.6; O2SAT 97
[2023-05-29 10:27] VITALS: BP 93/54; PULSE 58; RESP 18; O2SAT 95
[2023-05-29 10:32] LABS: Glucose, Whole Blood 59 mg/dL (60-115)
[2023-05-29 10:46] VITALS: BP 129/58; PULSE 57; RESP 18; O2SAT 97
[2023-05-29 11:00] LABS: Glucose, Whole Blood 72 mg/dL (60-115)
[2023-05-29 11:00] LABS: Glucose, Whole Blood 91 mg/dL (60-115)
== END 2023-05-29 11:51 | disposition home or self-care (01) ==
PROVIDERS: PCP Nurse Practitioner Family; Visit Provider Internal Medicine Gastroenterology
PROC: 0DJD8ZZ Inspection of Lower Intestinal Tract, Via Natural or Artificial Opening Endoscopic (ICD-10-PCS; CPT 45378; principal; 2023-05-29 09:00)
DX: Z12.11 Encounter for screening for malignant neoplasm of colon (principal); Z91.148 Patient's other noncompliance with medication regimen for other reason; Z85.038 Personal history of other malignant neoplasm of large intestine; Z90.49 Acquired absence of other specified parts of digestive tract; Z98.0 Intestinal bypass and anastomosis status; K58.1 Irritable bowel syndrome with constipation; K64.0 First degree hemorrhoids; E11.22 Type 2 diabetes mellitus with diabetic chronic kidney disease; E11.42 Type 2 diabetes mellitus with diabetic polyneuropathy; I12.9 Hypertensive chronic kidney disease with stage 1 through stage 4 chronic kidney disease, or unspecified chronic kidney disease; N18.2 Chronic kidney disease, stage 2 (mild); G47.33 Obstructive sleep apnea (adult) (pediatric); Z94.7 Corneal transplant status
CPT/HCPCS: G0105; 82947

== ENCOUNTER → 2023-05-29 07:20 | Outpatient (BNV) | payer MEDICARE, SELFPAY | PROVIDERS: PCP Nurse Practitioner Family; Visit Provider Internal Medicine Gastroenterology | DX: Z85.038 Personal history of other malignant neoplasm of large intestine (principal) | CPT/HCPCS: G0105 ==

== ENCOUNTER → 2023-07-08 11:46 | Day surgery (SDC) | payer MEDICARE, SELFPAY ==
--- NOTE | ~2023-07-08 | CT_ITS ---
EXAMINATION: CT ABDOMEN WITHOUT AND WITH CONTRAST CLINICAL INFORMATION: Evaluate liver lesion. COMPARISON: MRI abdomen 05/15/2023 CT abdomen/pelvis 03/10/2023 TECHNIQUE: Multidetector volumetric imaging of the abdomen was performed prior to and following administration 85 mL of Omnipaque 350 intravenous contrast. Sagittal and coronal reformatted images were obtained on the technologist's workstation. Oral contrast: No This CT examination was performed using dose optimization techniques as appropriate, variously including the following: *Automated exposure control *Adjustment of mA and/or kV according to patient size (this includes techniques or standardized protocols for targeted exams where dose is matched to indication/reason for exam; i.e. extremities or head) *Use of iterative reconstruction technique DLP: 1180 mGy-cm FINDINGS: LUNG BASES: Marked coronary artery calcifications. No pleural or pericardial effusion. LIVER, GALLBLADDER, AND BILIARY TREE: Hepatic steatosis. Ill-defined soft tissue mass seen at the bifurcation of the common hepatic duct on the recent MRI imaging is not conspicuous on the multiphasic CT. There is persistent marked dilatation of the intrahepatic biliary ductal system with abrupt transition at the common hepatic duct. This is suggestive of possible neoplasm involving the bifurcation. The site of transition is best demonstrated on image 52 of series 8 and on image 38 of series 5. See also image 184 series 6. Cholelithiasis. No evidence of pericholecystic inflammatory change. PANCREAS: No ductal dilatation. SPLEEN: Not enlarged. ADRENAL GLANDS: No adrenal mass. KIDNEYS AND URETERS: The kidneys are symmetric in size and enhancement. No hydronephrosis or perinephric fluid collection. GASTROINTESTINAL TRACT: Stomach is underdistended. Imaged loops of small and large bowel are not obstructed. ABDOMINAL WALL: No significant hernia is appreciated. LYMPH NODES: Subcentimeter portacaval and retroperitoneal lymph nodes. VASCULAR: Normal caliber abdominal aorta. OSSEOUS STRUCTURES: No destructive bone lesion. CT/CT liver 3 phase IMPRESSION: Abrupt zone of transition at the level of the common hepatic duct bifurcation resulting in marked intrahepatic biliary ductal dilatation unchanged from 03/10/2023. This is suggestive of underlying neoplasm. A well-defined or distinct mass is not visualized by CT. ERCP/US may be considered for further assessment.
[2023-07-08 12:12] VITALS: BMI 28.0
[2023-07-08 12:28] LABS: Glucose, Whole Blood 103 mg/dL (60-115)
[2023-07-08 13:05] LABS: MANUAL DIFF FLAG NO
[2023-07-08 13:08] LABS: Basophils Absolute Auto 0.1 X10*3/uL (0.0-0.2); Eosinophils Absolute Auto 0.2 X10*3/uL (0.0-0.4); Eosinophils Percent Auto 2.9 % (0-4); Hematocrit 50.3 % (42.0-52.0); Hemoglobin 16.9 g/dl (14.0-18.0); Imm Gran Abs Auto 0.03 X10*3/uL (0.00-0.03); Imm Gran Pct Auto 0.5 % (0.0-0.4); Lymphocytes Absolute Auto 1.2 X10*3/uL (1.2-4.9); Lymphocytes Percent Auto 19.4 % (20-40); Mean Corpuscular HGB Conc 33.6 g/dl (31.0-36.0); Mean Corpuscular Hemoglobin 30.4 pg (27.0-33.0); Mean Corpuscular Volume 90.5 fL (80.0-98.0); Mean Platelet Volume 12.6 fL (9.4-12.4); Monocytes Absolute Auto 0.5 X10*3/uL (0.1-1.2); Monocytes Percent Auto 7.7 % (2-11); Neutrophils Absolute Auto 4.2 x10*3/uL (2.0-8.3); Neutrophils Percent Auto 68.5 % (45-73); Platelet Count 113 X10*3/uL (160-400); Red Blood Count 5.56 X10*6/uL (4.60-5.80); Red Cell Distribution Width 13.4 % (11.0-16.0); White Blood Count 6.1 X10*3/uL (4.8-10.8)
[2023-07-08 13:20] LABS: Prothrombin Time 11.9 SEC (11.1-13.3)
[2023-07-08 13:22] LABS: Blood Urea Nitrogen 29 mg/dL (9-16); Creatinine Clr Calc Pharmacy 78.5; Estimated Glomerular Filt Rate > 60; Partial Thromboplastin Time 31.2 SEC (26.0-36.4)
[2023-07-08] MEDS: iohexoL 350 MG/ML 100 ML INFUS..BTL IV (14:22)
[2023-07-08 14:30] VITALS: BP 145/57; PULSE 71; RESP 16; TEMP 36.4; O2SAT 98
[2023-07-08 15:42] LABS: Alanine Aminotransferase 30 U/L (0-40); Alkaline Phosphatase 120 U/L (39-117); Anion Gap 15 (12-20); Aspartate Amino Transferase 25 U/L (5-37); Bilirubin Direct 0.3 mg/dL (0.0-0.5); Bilirubin Total 0.8 mg/dL (0.0-1.0); Blood Urea Nitrogen 27 mg/dL (9-16); Calcium 9.7 mg/dL (8.4-10.2); Carbon Dioxide 24 mmol/L (22-29); Chloride 107 mmol/L (96-108); Creatinine Clr Calc Pharmacy 82.7; Estimated Glomerular Filt Rate > 60; Glucose Random 73 mg/dL (60-115); Potassium 3.9 mmol/L (3.3-5.1); Sodium 142 mmol/L (135-145); Total Protein 6.6 g/dL (6.5-8.0)
== END | disposition home or self-care (01) ==
PROVIDERS: Physician Assistant Surgical; Radiology Vascular & Interventional Radiology; PCP Nurse Practitioner Family; Visit Provider Internal Medicine Gastroenterology
DX: K76.9 Liver disease, unspecified (principal); Z53.8 Procedure and treatment not carried out for other reasons
CPT/HCPCS: 36415; 74170; 80053; 82248; 82565; 82947; 84520; 85025; 85610; 85730; 86850; 86900; 86901; J2250; J3010

== ENCOUNTER 2023-07-15 13:18 | Outpatient (AMB) | payer MEDICARE, SELFPAY ==
--- NOTE | 2023-07-08 13:00 | ...WebTmpl.AM.PHNO ---
Nursing Note Patient needs liver bx, had prior discussion with IR, see workflow, ERCP unlikely to be helpful if parenchymal lesion
--- NOTE | 2023-07-15 13:34 | MHC.PC.OV ---
Vital Signs 07/15/23 13:36 Height 5 ft 10 in BP 120/60 Blood Pressure Location Lt brachial Position Sitting Pulse 86 Pulse Source Pulse Oximeter Temp 97.4 F Pulse Oximetry (%) 98 Oxygen Delivery Method Room Air Intake Visit Reasons: Annual Physical - needs A1C Intake Note: pt is here today for annual PE and A1C Allergies No Known Allergies [No Known Allergies*] Allergy (Verified 07/15/23 13:38) Medication List - Last Reviewed 07/15/23 by Vero Queen CMA aspirin 162 mg (2 x 81 mg) PO DAILY 90 days atorvastatin 40 mg PO DAILY 90 days bisacodyl (Dulcolax (bisacodyl)) 20 mg (4 x 5 mg) PO ONCE 1 day blood sugar diagnostic As directed blood sugar diagnostic (OneTouch Ultra Test strips) As directed three times a day blood-glucose meter (OneTouch Ultra2 Meter) As directed calcium carbonate-vitamin D3 600 mg-5 mcg (200 unit) 1 tab PO DAILY 90 days empagliflozin (Jardiance) 25 mg PO QAM 90 days FreeStyle Justina 2 [place] (flash glucose scanning reader) TID NS FreeStyle Justina 2 Sensor (flash glucose sensor) tid NS insulin degludec (Tresiba FlexTouch U-200 insulin) 50 units (0.25 mL) subcut DAILY 30 days lancets As directed lisinopril 20 mg PO DAILY metformin 1,000 mg PO BID multivitamin 1 tab PO DAILY omega-3 fatty acids 1,000 mg PO DAILY pantoprazole 40 mg PO DAILY peg 3350-electrolytes 236-22.74-6.74 -5.86 gram 240 mL PO Q10M pioglitazone 30 mg PO DAILY polyethylene glycol 3350 (Miralax) 17 grams PO BID Tobacco use date assessed: 07/15/23 Fall risk assessment: No Falls in past year Last assessed Fall Risk: 07/15/23 Dental Screening Dental Screen Date: 07/15/23 Did you have a dental visit in the last 12 months?: Yes Did you have a dental problem in the last 6 months where you did not have access to dental care?: No Was dental information given to patient?: Patient has dentist HPI Annual Physical - needs A1C HPI Details Pt is here for a PE. Pt is following up with GI, colon screen is scheduled. Pt is also supposed to have an ERCP in the near future. Pt reports incomplete bladder emptying. He also wakes up every 4-5 hours at night to urinate. Will order PSA to compare to previous. Prostate does feel enlarged today, will refer to urology. Pt is a diabetic, on an ANNETTE and a statin. A1C in office today is 7.4. Microalbumin is up to date. Denies polyuria, polydipsia, and neuropathy. Pt denies any signs and symptoms of hypoglycemia and does know how to correct it. Eye exam is up to date. Pt will be following up with endo so I will not change any medications currently. Pt also follows up with nephrology. [facility] Medical History Stroke Ulnar neuropathy at elbow Sleep apnea Acute embolic stroke Xerosis cutis CKD (chronic kidney disease) stage 2, GFR 60-89 ml/min Persistent proteinuria Hypertensive nephrosclerosis Elevated alkaline phosphatase level Cataract Fuchs' corneal dystrophy Colon cancer RLS (restless legs syndrome) Obesity (BMI 30.0-34.9) Dyslipidemia Type 2 diabetes mellitus with diabetic polyneuropathy Hypertension Neuropathy Diabetes mellitus Erectile dysfunction Surgical History History of esophagogastroduodenoscopy (EGD) Hx of left cataract extraction Hx of cornea transplant History of colonoscopy (~03/15/19) History of colon resection (~04/20/19) Family History Mother History of pancreatic cancer Father No problems noted. Brother Diabetes Maternal Grandmother Diabetes Social History Household Members: None Housing: Condominium Are you a primary campground caretaker to a significant other at home: No Do you presently have visiting nurse or other home services: No Alcohol intake: never Patient Tobacco Use Status: Never used Tobacco e-Cigarette/Vaping Use: Never Used Second Hand Smoke Exposure: No Advance Directives Date on File: 05/14/22 service: No Current occupational status: retired Cognitive needs: No Hearing needs: No Vision needs: No Questionnaire Thrive Questionnaire Date Thrive assessed: 10/09/22 AUDIT C Alcohol Use Questionnaire (AUDIT-C) 1. How often do you have a drink containing alcohol?: Never Total Score: 0 WILMER-7 AMB Questionnaire WILMER-7 Date WILMER - 7 assessed: 10/09/22 Source: Developed by Drs. Goirgi Glover, Deepthi Tyler, Felipe Gauthier and colleagues, with an educational charley from [employer]. Review of Systems Const Denies chills and Denies fever(s) Eyes Denies blurry vision ENT Denies vertigo, Denies dizziness and Denies sore throat Card Denies chest pain at rest, Denies chest pain with activity, Denies diaphoresis, Denies dyspnea and Denies dyspnea on exertion Resp Denies cough, Denies dyspnea, Denies dyspnea on exertion and Denies wheezing GI Denies abdominal pain, Denies melena, Denies hematochezia, Denies constipation, Denies diarrhea and Denies loose stools Denies hematuria Musc Denies numbness and Denies tingling Skin/Breast Denies lesions Neuro Denies vertigo, Denies dizziness, Denies numbness and Denies tingling Psych Denies anxiety, Denies depression, Denies homicidal ideation, Denies suicidal ideation and Denies other (substance abuse) Aller/Immun Denies wheezing Physical exam (Primary Care) Vital Signs: Last Vital Signs Temp 97.4 F 07/15/23 13:36 Pulse 86 07/15/23 13:36 BP 120/60 07/15/23 13:36 Pulse Ox 98 07/15/23 13:36 Oxygen Delivery Method Room Air 07/15/23 13:36 Tobacco/Smoking Status: Tobacco use Status Tobacco use date assessed 07/15/23 07/15/23 13:44 Patient Tobacco Use Status Never used Tobacco 07/15/23 13:41 e-Cigarette/Vaping Use Never Used 07/15/23 13:41 Thrive Assessment: Date of Thrive Assessment Date Thrive assessed 10/09/22 07/15/23 13:41 Const General: cooperative Nutritional Appearance: well nourished Orientation/consciousness: patient oriented x3 HENMT Other: cerumen noted to right ear, after ear lavage TM easily seen Head: Yes normal to inspection, Yes normocephalic and Yes atraumatic Ears: TM normal on the left Eyes General: appearance normal, both eyes and all related structures Alignment and Position: alignment normal and position normal Neck Neck: Yes normal visual inspection and Yes no lymphadenopathy Thyroid: Thyroid normal Resp Effort & Inspection: normal respiratory effort Auscultation: clear to auscultation bilaterally Cardio Rate: regular rate Rhythm: regular rhythm Heart sounds: S1 normal heart sound present, S2 normal heart sound present and Murmur heart sound present systolic (faint) GI Palpation (GI): Soft to palpation and nontender Auscultation: normal bowel sounds Other: GABRIEL: prostate enlarged Male General Exam: Yes normal external exam Penis: normal penis Scrotum: scrotum normal, testes descended bilaterally and no inguinal hernias Testes: no testicular mass Skin Rashes: no rashes Neuro General: patient oriented x3, moves all extremities, no focal motor deficits and deep tendon reflexes 2+ bilaterally Romberg Test: Negative Extrem Right lower extremity: no edema Left lower extremity: no edema Psych Appearance: grossly normal Mental Status: mental status grossly normal Speech and movement: Normal speech and movement present Affect: normal affect Attitude: cooperative Thought process: Normal thought process present Thought content: Normal thought content present Insight: Good insight present (Psych) Judgement: Good judgement present (Psych) Office Procedures Cerumen Removal From which ear canal was the cerumen removed: right Removal: irrigation Notes: patient tolerated procedure well, no complications and ear canal clear [id number] Irrigation/Lavage Results AMB Hemoglobin A1c AMB Hemoglobin A1c 7.4 % Last Edit by Vero Queen CMA on 07/15/23 13:45 Results Reviewed Results Reviewed: Laboratory Last Values Hgb A1c (Clinic) 7.4 % (4.0-6.0) H 07/15/23 13:21 Assessment and Plan Assessment & Plan (1) Screening PSA (prostate specific antigen): Code(s): Z12.5 - Encounter for screening for malignant neoplasm of prostate Plan: PSA ordered (2) Enlarged prostate: Code(s): N40.0 - Benign prostatic hyperplasia without lower urinary tract symptoms (3) Physical exam: Code(s): Z00.00 - Encounter for general adult medical examination without abnormal findings (4) Type 2 diabetes mellitus with diabetic polyneuropathy: Code(s): E11.42 - Type 2 diabetes mellitus with diabetic polyneuropathy Qualifiers: Diabetes mellitus [facility] insulin use: with [facility] use Qualified Code(s): E11.42 - Type 2 diabetes mellitus with diabetic polyneuropathy; Z79.4 - long-term (current) use of insulin Plan The patient agreed to the use of a medical registrar for this encounter. Scribed for STACEY Villanueva by Zulma Helton medical registrar, on 07/15/2023 at 13:40 EST. Orders: Orders AMB Hemoglobin A1c Today E11.29 - Type 2 diabetes mellitus with other diabetic kidney complication Complete Blood Count Auto Diff Today Z00.00 - Encounter for general adult medical examination without abnormal findings Comprehensive [place]. Panel Fast Today Z00.00 - Encounter for general adult medical examination without abnormal findings TSH reflex Free T4 Today Z00.00 - Encounter for general adult medical examination without abnormal findings Lipid Panel Today Z00.00 - Encounter for general adult medical examination without abnormal findings Prostate Specific Antigen Scr Today Z12.5 - Encounter for screening for malignant neoplasm of prostate UA CC w/rflx Micro + Cult Today Z00.00 - Encounter for general adult medical examination without abnormal findings Referrals Urology Referral N40.0 - Benign prostatic hyperplasia without lower urinary tract symptoms, Z12.5 - Encounter for screening for malignant neoplasm of prostate Coding Level of Care Code Est Pt Prev Care >65y(41676) Diagnoses Screening PSA (prostate specific antigen) Z12.5 Enlarged prostate N40.0 Physical exam Z00.00 Type 2 diabetes mellitus with diabetic polyneuropathy, with long-term current use of insulin E11.42; Z79.4 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
[2023-07-15 13:36] VITALS: BP 120/60; PULSE 86; TEMP 36.3; O2SAT 98
== END 2023-07-15 14:38 | disposition home or self-care (01) ==
PROVIDERS: PCP Nurse Practitioner Family; Visit Provider Nurse Practitioner Family
DX: Z00.00 Encounter for general adult medical examination without abnormal findings (principal); E11.42 Type 2 diabetes mellitus with diabetic polyneuropathy; Z79.4 Long term (current) use of insulin; E11.29 Type 2 diabetes mellitus with other diabetic kidney complication; N40.0 Benign prostatic hyperplasia without lower urinary tract symptoms; H61.21 Impacted cerumen, right ear
CPT/HCPCS: 69209; 83036; 99397

== ENCOUNTER 2023-08-26 11:20 | Outpatient (REF) | payer MEDICARE, SELFPAY ==
--- NOTE | ~2023-08-26 | PE_ITS ---
EXAMINATION: FLUORINE-18 FDG PET/CT SCAN CLINICAL INFORMATION: Subsequent treatment management. Restaging right-sided colonic adenocarcinoma. TECHNIQUE: 64 minutes following the intravenous administration of 14.4 mCi of fluorine 18 FDG, images from the base of skull to mid-thigh were obtained using a combined PET/CT scanner with CT scan based attenuation correction. No intravenous contrast was administered. Transverse, coronal, sagittal, and volume reconstruction projections were obtained. The patient's blood glucose as determined by a finger stick, was 208 mg/dL immediately prior to injection. The radiotracer was injected intravenously through the left forearm, without any complications. Total CT exam dose-length product 948.50 mGy-cm. * These CT images were obtained using dose optimization techniques as appropriate, variously including the following: Automated exposure control * Adjustment of mA and/or kV according to patient size (this includes techniques or standardized protocols for targeted exams where dose is matched to indication/reason for exam; i.e. extremities or head) * Use of iterative reconstruction technique COMPARISON: CT of the liver done on 07/08/2023, MRI of the abdomen done on 05/15/[address] of the chest abdomen and pelvis done on 03/10/[address] of the abdomen and pelvis done on 11/11/2019 and 03/22/2019. FINDINGS: SUV max REFERENCE: Blood: 2.0 (188/267). Liver: 2.8 to (169/267). HEAD AND NECK: No abnormal radiotracer uptake. No large intracranial hemorrhage, acute territorial infarct or significant shift of midline structures. CHEST: Ports and Devices: None Lungs: No abnormal radiotracer uptake. Pleura: No significant pleural effusion. Lymph Nodes: No tracer-avid mediastinal, hilar or internal mammary or axillary lymphadenopathy. Mediastinum: There is no significant pericardial effusion/thickening. Breasts/Chest Wall: No abnormal radiotracer uptake. Mild bilateral presumed gynecomastia is noted. ABDOMEN/PELVIS: Liver/Biliary System: Interval placement of biliary stent is noted, appear in good position resulting in interval decrease dilatation of the intrahepatic biliary tree since the most recent prior CT study done on 07/08/2023. No definite focal tracer avid disease is identified within the liver parenchyma or within the biliary tree especially at the confluence of the right and left hepatic duct. Sub-5 mm radiopaque gallstone is present, otherwise the gallbladder is unremarkable. Pancreas: Normal.No evidence of pancreatic ductal dilatation. Spleen: No abnormal radiotracer uptake. No evidence of splenomegaly. Adrenal Glands: No abnormal radiotracer uptake. Kidneys: No hydronephrosis, hydroureter or renal calculi bilaterally. Bowel: There is no significant bowel dilatation to suggest obstruction. Postsurgical changes of partial right-sided colectomy is noted. Small sliding hiatal hernia. The small bowel bowel loops are decompressed. Nonspecific focal tracer avidity is noted within the distal ileum at right iliac fossa with SUV max of 4.9 (77/267) without any CT correlate. Lymph Nodes: A few soft tissue nodules are noted within the mid retroperitoneum at and around the renal vessels without any radiotracer avidity, may represent prominent vessels versus non tracer avid small lymph nodes. Pelvic Organs: The urinary bladder is distended, shows mild diffuse wall thickening. The prostate is heterogeneously enlarged and is protruding into the bladder. Superimposed curvilinear increased asymmetric tracer avidity is noted within the left peripheral zone at the apex with SUV max of 3.3 (38/267). MUSCULOSKELETAL: No suspicious tracer avid focal disease. VASCULAR: Calcific atherosclerotic disease of the aorta including coronary arterial calcifications. No evidence of aneurysm. THE SITE(S) OF MOST INTENSE FDG AVIDITY AND SUV MAX: Nonspecific focal tracer avidity at distal ileum at right iliac fossa with SUV max of 4.[address] correlate. PET/PET CT fusion skull to thigh IMPRESSION: 1. Interval placement of biliary stent resulting in decreased intrahepatic biliary ductal dilatation since the most recent prior study dated 07/08/2023. 2. No definite focal tracer avid lesion within the liver parenchyma or within the biliary tree especially at the confluence of the right and left hepatic duct. 3. Abnormal enlarged prostate likely producing urinary bladder outlet obstruction and shows asymmetric mild tracer avidity within the left peripheral zone at the apex of the gland with SUV max of 3.3. 4. Nonspecific focal tracer avidity at distal ileum at right iliac fossa with SUV max of 4.[address] correlate. 5. Mild bilateral presumed gynecomastia and solitary sub-5 mm calcified gallstone.
== END 2023-08-26 11:21 | disposition home or self-care (01) ==
LOC: HO.PET 11:20
PROVIDERS: PCP Nurse Practitioner Family; Visit Provider Internal Medicine
DX: Z13.89 Encounter for screening for other disorder (principal)

== ENCOUNTER 2023-08-27 10:49 | Day surgery (SDC) | payer MEDICARE, SELFPAY ==
--- NOTE | ~2023-08-27 | IR_ITS ---
CLINICAL HISTORY: Metastatic colon cancer. The patient presents to interventional radiology for placement of a port for chemotherapy. PROCEDURES: 1. Real-time ultrasound-guided access into the right internal jugular vein after documentation of selected vessel patency, and permanent image storing in the patient records. 2. Placement of a 6.6 [place] single-lumen power port. CLINICIAN: Delfin العراقي PA-C MEDICATIONS: - Versed 1.5 mg, Fentanyl 75 mcg, Lidocaine 1% 10 mL SQ -Antibiotics: Ancef 2g -For additional details, please see nursing flowsheet. Complications: None. Estimated blood loss: <5 ml Specimens: None. Contrast: None. Fluoroscopy time: 3.6 min MODERATE SEDATION TIME: 25 min PROCEDURE NOTE: The procedure, risks, benefits, and alternatives were carefully explained to the patient and written informed consent was obtained. The patient was placed supine on the fluoroscopy table. A timeout was performed. The right neck and chest was prepped and draped in usual sterile fashion. Maximum barrier technique was utilized. Local anesthesia was administered to the access site with 1% lidocaine. Under ultrasound guidance, the right internal jugular vein was accessed with a 5 fr micropuncture set. A 0.035 in wire was advanced into the IVC. A peel-away sheath was advanced over the wire and into the SVC, and the wire was removed. Next, subcutaneous lidocaine was administered to the chest. The port pocket was created after the skin incision, utilizing blunt dissection. Using blunt dissection, a subcutaneous tunnel was created that connects from the port pocket to the venotomy site. Through the peel-away sheath, the 6.6 [place] port catheter was placed. The catheter position was verified with fluoroscopy to be at the superior vena cava/right atrial junction. The port was connected to the catheter and was placed in the pocket. The venotomy site was closed with a 3-0 Vicryl subcutaneous suture. The port incision site was closed with interrupted 3-0 Vicryl subcutaneous sutures and surgical glue. Prior to closing the skin, 1 g of Ancef solution was placed in the pocket. The port was tested, flushed, and packed with heparin per routine protocol. The patient tolerated the procedure well. The patient was stable after the procedure and was transferred to the PACU. The procedure was performed under moderate sedation and with a dedicated nurse with continuous monitoring of vital signs. A permanent image of the ultrasound the neck and fluoroscopic image of the chest was saved and sent to PACS. FINDINGS: 1. Patent right internal jugular vein 2. Placement of a 6.6 [place] single lumen power port. 3. Port flushes and aspirates very well with a 10 mL syringe. No pneumothorax. IR/IR us guide venous access IMPRESSION: Placement of a 6.6 [place] single-lumen power port. PLAN: - The patient will be discharged home when stable by sedation protocol. - Port may be used immediately. This procedure was performed by Delfin العراقي PA-C, and directly supervised by Dr. Forrest
--- NOTE | ~2023-08-27 | IR_ITS ---
CLINICAL HISTORY: Metastatic colon cancer. The patient presents to interventional radiology for placement of a port for chemotherapy. PROCEDURES: 1. Real-time ultrasound-guided access into the right internal jugular vein after documentation of selected vessel patency, and permanent image storing in the patient records. 2. Placement of a 6.6 [place] single-lumen power port. CLINICIAN: Delfin العراقي PA-C MEDICATIONS: - Versed 1.5 mg, Fentanyl 75 mcg, Lidocaine 1% 10 mL SQ -Antibiotics: Ancef 2g -For additional details, please see nursing flowsheet. Complications: None. Estimated blood loss: <5 ml Specimens: None. Contrast: None. Fluoroscopy time: 3.6 min MODERATE SEDATION TIME: 25 min PROCEDURE NOTE: The procedure, risks, benefits, and alternatives were carefully explained to the patient and written informed consent was obtained. The patient was placed supine on the fluoroscopy table. A timeout was performed. The right neck and chest was prepped and draped in usual sterile fashion. Maximum barrier technique was utilized. Local anesthesia was administered to the access site with 1% lidocaine. Under ultrasound guidance, the right internal jugular vein was accessed with a 5 fr micropuncture set. A 0.035 in wire was advanced into the IVC. A peel-away sheath was advanced over the wire and into the SVC, and the wire was removed. Next, subcutaneous lidocaine was administered to the chest. The port pocket was created after the skin incision, utilizing blunt dissection. Using blunt dissection, a subcutaneous tunnel was created that connects from the port pocket to the venotomy site. Through the peel-away sheath, the 6.6 [place] port catheter was placed. The catheter position was verified with fluoroscopy to be at the superior vena cava/right atrial junction. The port was connected to the catheter and was placed in the pocket. The venotomy site was closed with a 3-0 Vicryl subcutaneous suture. The port incision site was closed with interrupted 3-0 Vicryl subcutaneous sutures and surgical glue. Prior to closing the skin, 1 g of Ancef solution was placed in the pocket. The port was tested, flushed, and packed with heparin per routine protocol. The patient tolerated the procedure well. The patient was stable after the procedure and was transferred to the PACU. The procedure was performed under moderate sedation and with a dedicated nurse with continuous monitoring of vital signs. A permanent image of the ultrasound the neck and fluoroscopic image of the chest was saved and sent to PACS. FINDINGS: 1. Patent right internal jugular vein 2. Placement of a 6.6 [place] single lumen power port. 3. Port flushes and aspirates very well with a 10 mL syringe. No pneumothorax. IR/IR cvc insert tunnel w prt/waste treatment operator IMPRESSION: Placement of a 6.6 [place] single-lumen power port. PLAN: - The patient will be discharged home when stable by sedation protocol. - Port may be used immediately. This procedure was performed by Delfin العراقي PA-C, and directly supervised by Dr. Forrest
[2023-08-27 12:04] LABS: Glucose, Whole Blood 223 mg/dL (60-115)
[2023-08-27 12:08] VITALS: BMI 27.7
[2023-08-27 12:12] LABS: MANUAL DIFF FLAG NO
[2023-08-27 12:16] LABS: Basophils Absolute Auto 0.1 X10*3/uL (0.0-0.2); Basophils Percent Auto 1.4 % (0-2); Eosinophils Absolute Auto 0.2 X10*3/uL (0.0-0.4); Eosinophils Percent Auto 3.8 % (0-4); Hematocrit 51.6 % (42.0-52.0); Hemoglobin 17.2 g/dl (14.0-18.0); Imm Gran Abs Auto 0.04 X10*3/uL (0.00-0.03); Imm Gran Pct Auto 0.6 % (0.0-0.4); Lymphocytes Absolute Auto 1.2 X10*3/uL (1.2-4.9); Lymphocytes Percent Auto 18.9 % (20-40); Mean Corpuscular HGB Conc 33.3 g/dl (31.0-36.0); Mean Corpuscular Hemoglobin 30.5 pg (27.0-33.0); Mean Corpuscular Volume 91.5 fL (80.0-98.0); Mean Platelet Volume 12.5 fL (9.4-12.4); Monocytes Absolute Auto 0.5 X10*3/uL (0.1-1.2); Monocytes Percent Auto 7.7 % (2-11); Neutrophils Absolute Auto 4.3 x10*3/uL (2.0-8.3); Neutrophils Percent Auto 67.6 % (45-73); Platelet Count 163 X10*3/uL (160-400); Red Blood Count 5.64 X10*6/uL (4.60-5.80); Red Cell Distribution Width 13.3 % (11.0-16.0); White Blood Count 6.4 X10*3/uL (4.8-10.8)
[2023-08-27 12:21] LABS: Prothrombin Time 12.6 SEC (11.1-13.3)
[2023-08-27 12:23] LABS: Partial Thromboplastin Time 35.4 SEC (26.0-36.4)
[2023-08-27 14:20] VITALS: BP 145/58; PULSE 74; RESP 16; TEMP 37; O2SAT 97
[2023-08-27 14:35] VITALS: BP 135/61; PULSE 71; RESP 18; TEMP 36.9; O2SAT 96
== END 2023-08-27 15:18 | disposition home or self-care (01) ==
LOC: HO.SSS 10:50
PROVIDERS: Physician Assistant Surgical; PCP Nurse Practitioner Family; Visit Provider Radiology Vascular & Interventional Radiology
DX: Z45.2 Encounter for adjustment and management of vascular access device (principal); C18.9 Malignant neoplasm of colon, unspecified; C79.9 Secondary malignant neoplasm of unspecified site; Z85.038 Personal history of other malignant neoplasm of large intestine; Z90.49 Acquired absence of other specified parts of digestive tract; Z80.0 Family history of malignant neoplasm of digestive organs; E11.22 Type 2 diabetes mellitus with diabetic chronic kidney disease; I12.9 Hypertensive chronic kidney disease with stage 1 through stage 4 chronic kidney disease, or unspecified chronic kidney disease; N18.2 Chronic kidney disease, stage 2 (mild); E11.42 Type 2 diabetes mellitus with diabetic polyneuropathy; Z79.4 Long term (current) use of insulin; Z79.84 Long term (current) use of oral hypoglycemic drugs; G47.33 Obstructive sleep apnea (adult) (pediatric); Z79.899 Other long term (current) drug therapy
CPT/HCPCS: 36415; 36561; 76937; 82947; 85025; 85610; 85730; 99152; 99153; C1725; C1769; C1788; J0690; J1642; J1644; J2250; J2310; J3010

== ENCOUNTER → 2023-08-27 12:45 | Outpatient (BNV) | payer MEDICARE, SELFPAY | PROVIDERS: PCP Nurse Practitioner Family; Visit Provider Student in an Organized Health Care Education/Training Program | DX: C18.9 Malignant neoplasm of colon, unspecified (principal) | CPT/HCPCS: 36561; 76937; 77001 ==

== ENCOUNTER 2023-09-01 07:11 | Outpatient (AMB) | payer MEDICARE, SELFPAY ==
--- NOTE | 2023-09-01 07:27 | A.OFFPC_ITS ---
Intake Visit Reasons: Discuss supplement use [phone] Allergies No Known Allergies [No Known Allergies*] Allergy (Verified 08/27/23 11:54) Tobacco use date assessed: 07/15/23 HPI Discuss supplement use [phone] HPI Details Pt is started chemotherapy tomorrow due to liver mets. Pt has some concerns regarding chemo, recommended he speak with his oncologist about this. He was told to start taking vitamin B complex, he will pick this up at his pharmacy. Pt is anxious to start chemo. Denies fever, chills, and dizziness. [facility] Medical History Stroke Ulnar neuropathy at elbow Sleep apnea Acute embolic stroke Xerosis cutis CKD (chronic kidney disease) stage 2, GFR 60-89 ml/min Persistent proteinuria Hypertensive nephrosclerosis Elevated alkaline phosphatase level Cataract Fuchs' corneal dystrophy Colon cancer RLS (restless legs syndrome) Obesity (BMI 30.0-34.9) Dyslipidemia Type 2 diabetes mellitus with diabetic polyneuropathy Hypertension Neuropathy Diabetes mellitus Erectile dysfunction Surgical History History of esophagogastroduodenoscopy (EGD) Hx of left cataract extraction Hx of cornea transplant History of colonoscopy (~03/15/19) History of colon resection (~04/20/19) Family History Mother History of pancreatic cancer Father No problems noted. Brother Diabetes Maternal Grandmother Diabetes Social History Household Members: None Housing: Condominium Are you a primary ocular care aide to a significant other at home: No Do you presently have visiting nurse or other home services: No Alcohol intake: never Patient Tobacco Use Status: Never used Tobacco e-Cigarette/Vaping Use: Never Used Second Hand Smoke Exposure: No Advance Directives Date on File: 05/14/22 service: No Current occupational status: retired Cognitive needs: No Hearing needs: No Vision needs: No Questionnaire Thrive Questionnaire Date Thrive assessed: 10/09/22 WILMER-7 AMB Questionnaire WILMER-7 Date WILMER - 7 assessed: 10/09/22 Source: Developed by Drs. Giorgi Glover, Deepthi Tyler, Felipe Gauthier and colleagues, with an educational charley from [employer]. Review of Systems Const Reports as per HPI Physical exam (Primary Care) Tobacco/Smoking Status: Tobacco use Status Tobacco use date assessed 07/15/23 07/15/23 13:44 Patient Tobacco Use Status Never used Tobacco 08/27/23 14:29 e-Cigarette/Vaping Use Never Used 07/15/23 13:41 Thrive Assessment: Date of Thrive Assessment Date Thrive assessed 10/09/22 07/15/23 13:41 Const General: cooperative Orientation/consciousness: patient oriented x3 Neuro General: patient oriented x3 Psych Appearance: grossly normal Mental Status: mental status grossly normal Speech and movement: Clear speech present Affect: normal affect Attitude: cooperative Thought process: Normal thought process present Thought content: Normal thought content present Insight: Good insight present (Psych) Judgement: Good judgement present (Psych) Telehealth Telehealth Location of provider rendering services: practice address Location of patient: address on file Patient Identification confirmed using: Name, : Yes Telehealth method: video Patient verbally consented to treatment: Yes Patient verbally consented to billing insurance company: Yes Patient informed of any privacy concerns related to visit: Yes Minutes spent on Phone/Video with Pt.: 10 Assessment and Plan Assessment & Plan (1) Colon cancer metastasized to liver: Code(s): C18.9 - Malignant neoplasm of colon, unspecified; C78.7 - Secondary malignant neoplasm of liver and intrahepatic bile duct Plan: following up with oncology, starting chemotherapy tomorrow Plan The patient agreed to the use of a certified medical technician for this encounter. Scribed for STACEY Villanueva by elias Luciano scribe, on 09/01/2023 at 07:25 EST. Coding Level of Care Code Tele Est Pt Level 3 (07297) Diagnoses Colon cancer metastasized to liver C18.9; C78.7
== END 2023-09-01 08:24 | disposition home or self-care (01) ==
LOC: HO.HMGC 07:11
PROVIDERS: PCP Nurse Practitioner Family; Visit Provider Nurse Practitioner Family
DX: C18.9 Malignant neoplasm of colon, unspecified (principal); C78.7 Secondary malignant neoplasm of liver and intrahepatic bile duct
CPT/HCPCS: 99213

== ENCOUNTER 2023-11-13 15:17 | Outpatient (AMB) | payer MEDICARE, SELFPAY ==
--- NOTE | 2023-11-13 15:37 | MHC.OFFVIS ---
Intake Intake Visit Reasons: incomplete bladder emptying Intake Note: New Patient presents today to establish treatment for incomplete bladder emptying Meds- None Allergies to Antibiotic- No Known Allergies Blood Thinner- Aspirin Post Void Residual: 419ml Patient Symptoms: Patient stated he has the urgency to urinate every two to three hours. Cardiology Clinical Consultant Required: No Accompanied by: Self / Same As Patient Allergies No Known Allergies [No Known Allergies*] Allergy (Verified 11/13/23 15:47) Medication List - Last Reconciled 11/13/23 by Doe Moses MD aspirin 162 mg (2 x 81 mg) PO DAILY 90 days atorvastatin 40 mg PO DAILY 90 days blood sugar diagnostic As directed empagliflozin (Jardiance) 25 mg PO QAM 90 days FreeStyle Justina 2 [place] (flash glucose scanning reader) TID NS FreeStyle Justina 2 Sensor (flash glucose sensor) tid NS insulin degludec (Tresiba FlexTouch U-200 insulin) 35 units subcut DAILY lisinopril 20 mg PO DAILY metformin 1,000 mg PO BID multivitamin 1 tab PO DAILY pantoprazole 40 mg PO DAILY pioglitazone (Actos) 30 mg PO DAILY tamsulosin 0.4 mg PO BEDTIME 30 days HPI HPI Comments History of Present Illness Details Navarro is a pleasant male. He is a patient of . He is seen for the following urologic conditions - incomplete bladder emptying with urinary retention PVR 450 cc Background of liver cancer Has been on chemotherapy Persistent constipation with inability to empty bladder Type 2 diabetic with long-term insulin Urinary frequency waking hourly at night with small degree of urine emptying consistent with urinary overflow The above conditions have impacted his ability to empty his bladder. It appears to have some degree of neurogenic compromise. We discussed management options. Clean intermittent catheterization 3 times per day would allow him to get adequate sleep. CIC teaching performed by nursing staff Will organized catheter delivery. Clean intermittent catheterization 3 times per day for the foreseeable future [facility] Medical History Stroke Ulnar neuropathy at elbow Sleep apnea Acute embolic stroke Xerosis cutis CKD (chronic kidney disease) stage 2, GFR 60-89 ml/min Persistent proteinuria Hypertensive nephrosclerosis Elevated alkaline phosphatase level Cataract Fuchs' corneal dystrophy Colon cancer RLS (restless legs syndrome) Obesity (BMI 30.0-34.9) Dyslipidemia Type 2 diabetes mellitus with diabetic polyneuropathy Hypertension Neuropathy Diabetes mellitus Erectile dysfunction Surgical History History of esophagogastroduodenoscopy (EGD) Hx of left cataract extraction Hx of cornea transplant History of colonoscopy (~03/15/19) History of colon resection (~04/20/19) Family History Mother History of pancreatic cancer Father No problems noted. Brother Diabetes Maternal Grandmother Diabetes Social History Household Members: None Housing: Condominium Are you a primary personal care attendant to a significant other at home: No Do you presently have visiting nurse or other home services: No Alcohol intake: never Patient Tobacco Use Status: Never used Tobacco e-Cigarette/Vaping Use: Never Used Second Hand Smoke Exposure: No Advance Directives Date on File: 05/14/22 service: No Current occupational status: retired Cognitive needs: No Hearing needs: No Vision needs: No Review of Systems Const Denies chills and Denies fever(s) Card Reports no additional complaints and Denies syncope Resp Denies cough GI Denies abdominal pain and Denies heartburn Reports as per HPI and Denies change in libido Neuro Denies syncope Psych Denies change in libido Endo Denies change in libido Physical Exam Const General: cooperative, healthy appearing, comfortable and no acute distress Orientation/consciousness: patient oriented x3 HEENT Face and sinus: Yes normal facial exam Mouth: moist mucous membranes Neck Neck: Yes normal visual inspection, Yes full ROM and Yes trachea midline Chest Chest palpation & inspection: normal inspection of the chest Resp Effort & Inspection: normal respiratory effort, able to speak in complete sentences and no respiratory distress GI Inspection: Yes normal to inspection Back/Spine/Pelvis Cervical Spine: normal cervical lordosis Thoracic/Lumbar Spine: thoracic and lumbar spine normal to inspection Skin General skin exam: no rashes or lesions noted Neuro General: patient oriented x3, gait normal, tone normal and moves all extremities Extrem General: Yes normal to inspection and Yes capillary refill normal Office Procedures Post Void Residual Post Residual Void Post Void Residual (PVR): 419 20671-Ovin Void Residual by ultrasound Results AMB Urinalysis, Automated UA Leukoctes 0 Emely/uL Last Edit [facility] on 11/13/23 16:01 UA Nitrite Negative Last Edit by Mallika Asfhordstefan [place], [facility] on 11/13/23 16:01 UA Urobilinogen 0.2 mg/dL Last Edit by [facility] [place], [facility] on 11/13/23 16:01 UA Protein 0 mg/dL Last Edit by Mallika Ashfordstefan Yanga, [facility] on 11/13/23 16:01 UA pH 6.0 Last Edit by [facility] [place], [facility] on 11/13/23 16:01 UA Blood 0 Hemant/uL Last Edit by [facility], [facility] on 11/13/23 16:01 UA Specific [place] 1.015 Last Edit by [facility], [facility] on 11/13/23 16:01 UA Ketone Negative Last Edit by [facility] [place], [facility] on 11/13/23 16:01 UA Bilirubin 0 mg/dL Last Edit by [facility] on 11/13/23 16:01 UA Glucose 1000 mg/dL Last Edit by [facility] [place] [facility] on 11/13/23 16:01 Assessment & Plan Assessment & Plan (1) Urinary retention with incomplete bladder emptying: Code(s): R33.9 - Retention of urine, unspecified Plan Clean intermittent catheterization 2 week follow-up tele Start alpha-shivani Orders: Orders AMB Urinalysis Automated Today R33.9 - Retention of urine, unspecified AMB Post Void Residual by ultrasound Today R33.9 - Retention of urine, unspecified Medications: New tamsulosin 0.4 mg PO BEDTIME 30 days 30 caps 1RF N40.1 - Benign prostatic hyperplasia with lower urinary tract symptoms, R33.9 - Retention of urine, unspecified, R35.1 - Nocturia Patient Instructions: Imaging studies, laboratory and physical exam results were discussed and reviewed in detail. No major barriers to patient understanding were identified. An opportunity to ask questions regarding the treatment plan was provided. All questions were answered. The patient expressed understanding and agreement with the above treatment plan. The patient is aware they should contact our office by phone for worsening of their current condition or the appearance of new urologic symptoms. Compliance is encouraged with any medications and followup testing that is ordered. It is a privilege to participate in the urologic care of your patient. If you have any questions or concerns regarding treatment for the above conditions, or other urologic issues, please do not hesitate to contact me. The office telephone contact is [phone]. This note is constructed using voice recognition software. While every effort has been made to ensure accuracy trace evidence technician errors may have been included. Yours sincerely, Dr Doe Moses MD, [facility]ACK[facility] - Urology Providers of Expert, Compassionate Care for the Genitourinary System Coding Level of Care Code New Pt Level 4 (92445) Diagnoses Urinary retention with incomplete bladder emptying R33.9 CPT Codes Post Residual Void - PVR CPT Code: 03846-Gvyo Void Residual by ultrasound ([id number])
== END 2023-11-13 16:31 | disposition home or self-care (01) ==
PROVIDERS: PCP Nurse Practitioner Family; Visit Provider Urology
DX: R33.9 Retention of urine, unspecified (principal)
CPT/HCPCS: 99204

== ENCOUNTER → 2023-11-13 15:17 | Outpatient (BNVA) | payer MEDICARE, SELFPAY | PROVIDERS: PCP Nurse Practitioner Family; Visit Provider Urology | DX: R33.9 Retention of urine, unspecified (principal) | CPT/HCPCS: 51798; 81003; 99202 ==

== ENCOUNTER 2023-11-28 11:16 | Outpatient (AMB) | payer MEDICARE, SELFPAY ==
--- NOTE | 2023-11-28 11:18 | A.OFFVIS_ITS ---
Intake Intake Visit Reasons: 2W Med Review(Tamsulosin) Allergies No Known Allergies [No Known Allergies*] Allergy (Verified 12/04/23 14:45) Medication List - Last Reconciled 11/28/23 by Doe Moses MD aspirin 162 mg (2 x 81 mg) PO DAILY 90 days atorvastatin 40 mg PO DAILY 90 days blood sugar diagnostic As directed empagliflozin (Jardiance) 25 mg PO QAM 90 days FreeStyle Justina 2 [place] (flash glucose scanning reader) TID NS FreeStyle Justina 2 Sensor (flash glucose sensor) tid NS insulin degludec (Tresiba FlexTouch U-200 insulin) 35 units subcut DAILY lisinopril 20 mg PO DAILY metformin 1,000 mg PO BID multivitamin 1 tab PO DAILY pantoprazole 40 mg PO DAILY pioglitazone (Actos) 30 mg PO DAILY tamsulosin 0.4 mg PO BEDTIME 90 days HPI HPI Comments History of Present Illness Details Navarro is a pleasant male. He is a patient of . He is seen for the following urologic conditions - incomplete bladder emptying with urina ry retention Telemedicine Evaluation 15 min Consultation [employer] Video Neurogenic bladder Background of liver cancer Has been on chemotherapy Persistent constipation with inability to empty bladder Type 2 diabetic with long-term insulin Urinary frequency waking hourly at night with small degree of urine emptying consistent with urinary overflow The above conditions have impacted his ability to empty his bladder. It appears to have some degree of neurogenic compromise. Clean intermittent catheterization 3 times per day would allow him to get adequate sleep. Clean intermittent catheterization 3 times per day for the foreseeable future [facility] Medical History Stroke Ulnar neuropathy at elbow Sleep apnea Acute embolic stroke Xerosis cutis CKD (chronic kidney disease) stage 2, GFR 60-89 ml/min Persistent proteinuria Hypertensive nephrosclerosis Elevated alkaline phosphatase level Cataract Fuchs' corneal dystrophy Colon cancer RLS (restless legs syndrome) Obesity (BMI 30.0-34.9) Dyslipidemia Type 2 diabetes mellitus with diabetic polyneuropathy Hypertension Neuropathy Diabetes mellitus Erectile dysfunction Surgical History History of esophagogastroduodenoscopy (EGD) Hx of left cataract extraction Hx of cornea transplant History of colonoscopy (~03/15/19) History of colon resection (~04/20/19) Family History Mother History of pancreatic cancer Father No problems noted. Brother Diabetes Maternal Grandmother Diabetes Social History Household Members: None Housing: Condominium Are you a primary career orientation teacher to a significant other at home: No Do you presently have visiting nurse or other home services: No Alcohol intake: never Patient Tobacco Use Status: Never used Tobacco e-Cigarette/Vaping Use: Never Used Second Hand Smoke Exposure: No Advance Directives Date on File: 05/14/22 service: No Current occupational status: retired Cognitive needs: No Hearing needs: No Vision needs: No Review of Systems Const All systems reviewed & are unremarkable except as noted in HPI and below Reports no additional complaints Resp Reports no additional complaints GI Reports no additional complaints Reports as per HPI Musc Reports no additional complaints Physical Exam Telemedicine evaluation Appropriate responses Regular breathing rate and rhythm HEENT Head: Yes normal to inspection Ears: hearing grossly normal bilaterally Eyes General: appearance normal, both eyes and all related structures Neck Neck: Yes normal visual inspection Chest Chest palpation & inspection: normal inspection of the chest Resp Effort & Inspection: normal respiratory effort and able to speak in complete sentences Assessment & Plan Assessment & Plan (1) Urinary retention with incomplete bladder emptying: Code(s): R33.9 - Retention of urine, unspecified Plan Six-month follow-up Medications: Changed From tamsulosin 0.4 mg PO BEDTIME 30 days 30 caps 1RF R33.9 - Retention of urine, unspecified, R35.1 - Nocturia, N40.1 - Benign prostatic hyperplasia with lower urinary tract symptoms To tamsulosin 0.4 mg PO BEDTIME 90 caps 1RF 90 days R33.9 - Retention of urine, unspecified, R35.1 - Nocturia, N40.1 - Benign prostatic hyperplasia with lower urinary tract symptoms Patient Instructions: Imaging studies, laboratory and physical exam results were discussed and reviewed in detail. No major barriers to patient understanding were identified. An opportunity to ask questions regarding the treatment plan was provided. All questions were answered. The patient expressed understanding and agreement with the above treatment plan. The patient is aware they should contact our office by phone for worsening of their current condition or the appearance of new urologic symptoms. Compliance is encouraged with any medications and followup testing that is ordered. It is a privilege to participate in the urologic care of your patient. If you have any questions or concerns regarding treatment for the above conditions, or other urologic issues, please do not hesitate to contact me. The office telephone contact is [phone]. This note is constructed using voice recognition software. While every effort has been made to ensure accuracy health communications specialist errors may have been included. Yours sincerely, Dr Doe Moses MD, [facility] - Urology Providers of Expert, Compassionate Care for the Genitourinary System Telehealth Telehealth Location of provider rendering services: practice address Location of patient: address on file Patient Identification confirmed using: Name, : Yes Telehealth method: video Patient verbally consented to treatment: Yes Patient verbally consented to billing insurance company: Yes Patient informed of any privacy concerns related to visit: Yes Minutes spent on Phone/Video with Pt.: 15 Coding Level of Care Code Tele Est Pt Level 3 (45720) Diagnoses Urinary retention with incomplete bladder emptying R33.9
== END 2023-11-28 11:50 | disposition home or self-care (01) ==
LOC: HO.HUSH 11:17
PROVIDERS: PCP Nurse Practitioner Family; Visit Provider Urology
DX: R33.9 Retention of urine, unspecified (principal)
CPT/HCPCS: 99213

== ENCOUNTER → 2023-11-28 11:16 | Outpatient (BNVA) | payer MEDICARE, SELFPAY | PROVIDERS: PCP Nurse Practitioner Family; Visit Provider Urology ==

== ENCOUNTER 2023-12-04 14:21 | Outpatient (AMB) | payer MEDICARE, SELFPAY ==
[2023-12-04 14:25] VITALS: BP 122/72; PULSE 82; O2SAT 98; BMI 27.3
--- NOTE | 2023-12-04 14:25 | MHC.PC.OV ---
Vital Signs 12/04/23 14:25 Height 5 ft 10 in Weight 190 lb BMI 27.3 BP 122/72 Blood Pressure Location Lt brachial Position Sitting Pulse 82 Pulse Source Pulse Oximeter Pulse Oximetry (%) 98 Oxygen Delivery Method Room Air Intake Visit Reasons: HDF ~ Post hospital discharge FU Intake Note: pt is here for HDF Global Chief Creative Officer Required: No Accompanied by: Self / Same As Patient Allergies No Known Allergies [No Known Allergies*] Allergy (Verified 12/04/23 14:45) Medication List - Last Reconciled 12/04/23 by RAVEN Morrissey- aspirin 162 mg (2 x 81 mg) PO DAILY 90 days atorvastatin 40 mg PO DAILY 90 days blood sugar diagnostic As directed empagliflozin (Jardiance) 25 mg PO QAM 90 days FreeStyle Justina 2 [place] (flash glucose scanning reader) TID NS FreeStyle Justina 2 Sensor (flash glucose sensor) tid NS insulin degludec (Tresiba FlexTouch U-200 insulin) 35 units subcut DAILY insulin lispro (Humalog KwikPen (U-100) Insulin) 1 sliding scale dose subcut USEASDIRECTD lisinopril 20 mg PO DAILY metformin 1,000 mg PO BID multivitamin 1 tab PO DAILY pantoprazole 40 mg PO DAILY pioglitazone (Actos) 30 mg PO DAILY tamsulosin 0.4 mg PO BEDTIME 90 days Tobacco use date assessed: 12/04/23 Fall risk assessment: No Falls in past year Last assessed Fall Risk: 12/04/23 Dental Screening Dental Screen Date: 12/04/23 Did you have a dental visit in the last 12 months?: Yes Did you have a dental problem in the last 6 months where you did not have access to dental care?: No Was dental information given to patient?: Patient has dentist HPI HDF ~ Post hospital discharge FU HPI Details Pt was seen in the ER on 10/23 as a category 1 trauma after a fall due to hypotension. Labs showed elevated lactate, he was given fluid resuscitation. Troponin was elevated at 130. Pt had high anion gap metabolic acidosis with glucose of 514. BUN was 51. Anion gap closed, bicarb improved to 17. Beta hydroxybutyrate 4.44. No leukocytosis, stable anemia. CT of the abdomen/pelvis revealed appropriate placement of intrahepatic stents, no abscess or other intra-abdominal pathology. EKG showed sinus tachycardia with nonspecific conduction delay T wave inversion in lateral leads which may be repolarization abnormality. Missing further documentation. Pt has seen his oncologist since his hospialization. He is receiving chemo. Today, pt reports doing well. Pt is a diabetic, he will be following up with endo in January. He was started on humalog sliding scale last month. He has a [employer] justina sensor, reports it has helped him. Denies fever, chills, chest pain, and shortness of breath. Will have pt obtain his pneumonia vaccine from his pharmacy. [facility] Medical History Stroke Ulnar neuropathy at elbow Sleep apnea Acute embolic stroke Xerosis cutis CKD (chronic kidney disease) stage 2, GFR 60-89 ml/min Persistent proteinuria Hypertensive nephrosclerosis Elevated alkaline phosphatase level Cataract Fuchs' corneal dystrophy Colon cancer RLS (restless legs syndrome) Obesity (BMI 30.0-34.9) Dyslipidemia Type 2 diabetes mellitus with diabetic polyneuropathy Hypertension Neuropathy Diabetes mellitus Erectile dysfunction Surgical History History of esophagogastroduodenoscopy (EGD) Hx of left cataract extraction Hx of cornea transplant History of colonoscopy (~03/15/19) History of colon resection (~04/20/19) Family History Mother History of pancreatic cancer Father No problems noted. Brother Diabetes Maternal Grandmother Diabetes Social History Household Members: None Housing: Condominium Are you a primary healthcare financial analyst to a significant other at home: No Do you presently have visiting nurse or other home services: No Alcohol intake: never Patient Tobacco Use Status: Never used Tobacco e-Cigarette/Vaping Use: Never Used Second Hand Smoke Exposure: No Advance Directives Date on File: 05/14/22 service: No Current occupational status: retired Cognitive needs: No Hearing needs: No Vision needs: No Questionnaire Thrive Questionnaire Date Thrive assessed: 12/04/23 WILMER-7 AMB Questionnaire WILMER-7 Date WILMER - 7 assessed: 10/09/22 Source: Developed by Drs. Giorgi Glover, Deepthi Tyler, Felipe Gauthier and colleagues, with an educational charley from [employer]. Review of Systems Const Reports as per HPI Physical exam (Primary Care) Vital Signs: Last Vital Signs Pulse 82 12/04/23 14:25 BP 122/72 12/04/23 14:25 Pulse Ox 98 12/04/23 14:25 Oxygen Delivery Method Room Air 12/04/23 14:25 BMI result Body Mass Index 27.3 Tobacco/Smoking Status: Tobacco use Status Tobacco use date assessed 12/04/23 12/04/23 14:31 Patient Tobacco Use Status Never used Tobacco 12/04/23 14:31 e-Cigarette/Vaping Use Never Used 12/04/23 14:31 Thrive Assessment: Date of Thrive Assessment Date Thrive assessed 12/04/23 12/04/23 14:31 Const General: cooperative Orientation/consciousness: patient oriented x3 Resp Effort & Inspection: normal respiratory effort Auscultation: clear to auscultation bilaterally Cardio Rate: regular rate Rhythm: regular rhythm Heart sounds: S1 normal heart sound present and S2 normal heart sound present Neuro General: patient oriented x3 Extrem Other: left foot mid dorsal aspect closer to medial side with slightly raised erythematous lesion, not TTP, ? friction rub, right foot dorsal medial aspect with red blemish (similar to left foot) Right lower extremity: edema Details: pitting and 1+ Left lower extremity: edema Details: pitting and 1+ Psych Appearance: grossly normal Mental Status: mental status grossly normal Speech and movement: Normal speech and movement present Affect: normal affect Attitude: cooperative Thought process: Normal thought process present Thought content: Normal thought content present Insight: Good insight present (Psych) Judgement: Good judgement present (Psych) Assessment and Plan Assessment & Plan (1) Type 2 diabetes mellitus with hyperglycemia, with long-term current use of insulin: Code(s): E11.65 - Type 2 diabetes mellitus with hyperglycemia; Z79.4 - correction (current) use of insulin Plan: Following up with endo in January (2) Edema: Code(s): R60.9 - Edema, unspecified Plan: Instructed pt to keep legs elevated (3) Colon cancer metastasized to liver: Code(s): C18.9 - Malignant neoplasm of colon, unspecified; C78.7 - Secondary malignant neoplasm of liver and intrahepatic bile duct Plan: follows up with oncology (chemo) Plan The patient agreed to the use of a medical genetics director for this encounter. Scribed for STACEY Villanueva by Zulma Helton medical genetics director, on 12/04/2023 at 14:55 EST. Coding Level of Care Code Est Pt Level 3 (06092) Diagnoses Type 2 diabetes mellitus with hyperglycemia, with long-term current use of insulin E11.65; Z79.4 Edema R60.9 Colon cancer metastasized to liver C18.9; C78.7
== END 2023-12-04 15:14 | disposition home or self-care (01) ==
PROVIDERS: PCP Nurse Practitioner Family; Visit Provider Nurse Practitioner Family
DX: E11.65 Type 2 diabetes mellitus with hyperglycemia (principal); Z79.4 Long term (current) use of insulin; C18.9 Malignant neoplasm of colon, unspecified; C78.7 Secondary malignant neoplasm of liver and intrahepatic bile duct; R60.9 Edema, unspecified
CPT/HCPCS: 99213

== ENCOUNTER 2023-12-24 13:27 | Outpatient (REF) | payer MEDICARE, SELFPAY ==
--- NOTE | ~2023-12-24 | MR_ITS ---
EXAMINATION: MR ABDOMEN WITHOUT AND WITH CONTRAST CLINICAL INFORMATION: Assess response to treatment COMPARISON: PET/CT, 08/26/2023 CT liver protocol 07/08/2023, MR abdomen 05/15/2023 TECHNIQUE: MRI of the abdomen before and after the IV administration of 9 mL of Gadavist was obtained using routine sequences. FINDINGS: LUNG BASES: The visualized lung bases are unremarkable. KIDNEYS AND URETERS: Subcentimeter Bosniak 1 right renal cysts, not mentioned follow-up recommended. GALLBLADDER: Cholelithiasis without evidence of acute cholecystitis. LIVER AND BILIARY TREE: Motion degraded postcontrast sequences limiting evaluation however there may be a subtle hypoenhancing mass at the bifurcation of the right and left hepatic ducts, 104:43 measuring 1.1 cm, previously not well discerned by PET/CT or CT liver protocol however decreased from prior MRI where it measured measured 2.1 cm. There is moderate segmental intrahepatic biliary duct dilatation and intrahepatic segments 5, 6, 7 and 2, similar to priors. There are new geographic wedge-shaped regions of hyperenhancement in the liver, 104:26 and 104:29 favoring perfusional abnormalities. There is some intrinsic T1 bright signal noted within the dilated ducts in hepatic segment 2 though similar to prior MR which may reflect component of hemorrhage or proteinaceous debris. No extrahepatic biliary duct dilatation. PANCREAS: Pancreas is atrophic. SPLEEN: Unremarkable ADRENAL GLANDS: Unremarkable GASTROINTESTINAL TRACT: Unremarkable. LYMPH NODES: No lymphadenopathy. VASCULAR: Unremarkable ABDOMINAL WALL: Midline ventral laparotomy scar. Small fat-containing umbilical hernia. OSSEOUS STRUCTURES: Unremarkable. MR/MR abdomen wo/w con IMPRESSION: 1. Motion degraded postcontrast sequences limiting evaluation however there may be a subtle hypoenhancing mass at the bifurcation of the right and left hepatic ducts measuring 1.1 cm, previously not well discerned by PET/CT or CT liver protocol however decreased from prior MRI where it measured 2.1 cm. There is moderate segmental intrahepatic biliary duct dilatation and intrahepatic segments 5, 6, 7 and 2, similar to priors. There is some intrinsic T1 bright signal noted within the dilated ducts in hepatic segment 2 though similar to prior MR which may reflect component of hemorrhage or proteinaceous debris. 2. There are new geographic wedge-shaped regions of hyperenhancement in the liver, however with morphology favoring perfusional abnormalities. 3. Cholelithiasis without evidence of acute cholecystitis.
[2023-12-24] MEDS: gadobutroL 10 ML VIAL IVPUSH (14:46)
== END 2023-12-24 13:28 | disposition home or self-care (01) ==
LOC: HO.MRI 13:27
PROVIDERS: PCP Nurse Practitioner Family; Visit Provider Internal Medicine
DX: C18.9 Malignant neoplasm of colon, unspecified (principal); C78.7 Secondary malignant neoplasm of liver and intrahepatic bile duct
CPT/HCPCS: 74183; A9585

== ENCOUNTER 2024-01-13 09:14 | Outpatient (AMB) | payer MEDICARE, SELFPAY ==
--- NOTE | 2024-01-13 09:16 | A.OFFPC_ITS ---
Vital Signs 01/13/24 09:20 Weight 186 lb 4 oz BP 108/64 Blood Pressure Location Rt brachial Position Sitting Pulse 85 Pulse Source Pulse Oximeter Pulse Oximetry (%) 98 Oxygen Delivery Method Room Air Intake Visit Reasons: 6 month follow up Intake Note: Patient here for diabetes follow up. pt states sugars at home have been good and stable. Allergies No Known Allergies [No Known Allergies*] Allergy (Verified 01/13/24 09:21) Tobacco use date assessed: 12/04/23 Fall risk assessment: No Falls in past year Last assessed Fall Risk: 01/13/24 Dental Screening Dental Screen Date: 12/04/23 HPI 6 month follow up HPI Details Pt is following up with oncology due to colon cancer metastasized to liver (new hepatic duct mass), previous Hx of colon resection. There is ? of surgery. Pt is following up with a general surgeon through [facility]. He finished chemo in November. Pt reports doing well overall. He is tolerating a diet and having normal bowel movements. Denies fever, chills, diarrhea, and constipation. Pt is a diabetic, will be seeing endo in the near future. A1C today is 8.2. Pt reports that he sometimes forgets/not in favor of his mealtime insulin. Will increase long-acting insulin from 35 to 40 units. pt understands the s/s of hypoglycemia and how to correct it. Reenforced importance of mealtime insulin and setting reminders. Pt is on a statin and a ANNETTE. [facility] Medical History Stroke Ulnar neuropathy at elbow Sleep apnea Acute embolic stroke Xerosis cutis CKD (chronic kidney disease) stage 2, GFR 60-89 ml/min Persistent proteinuria Hypertensive nephrosclerosis Elevated alkaline phosphatase level Cataract Fuchs' corneal dystrophy Colon cancer RLS (restless legs syndrome) Obesity (BMI 30.0-34.9) Dyslipidemia Type 2 diabetes mellitus with diabetic polyneuropathy Hypertension Neuropathy Diabetes mellitus Erectile dysfunction Surgical History History of esophagogastroduodenoscopy (EGD) Hx of left cataract extraction Hx of cornea transplant History of colonoscopy (~03/15/19) History of colon resection (~04/20/19) Family History Mother History of pancreatic cancer Father No problems noted. Brother Diabetes Maternal Grandmother Diabetes Social History Household Members: None Housing: Condominium Are you a primary animal care taker to a significant other at home: No Do you presently have visiting nurse or other home services: No Alcohol intake: never Patient Tobacco Use Status: Never used Tobacco e-Cigarette/Vaping Use: Never Used Second Hand Smoke Exposure: No Advance Directives Date on File: 05/14/22 service: No Current occupational status: retired Cognitive needs: No Hearing needs: No Vision needs: No Questionnaire PHQ-9 Over the last 2 weeks, how often have you been bothered by any of the following problems? 1. Little interest or pleasure in doing things: not at all 2. Feeling down, depressed, or hopeless: not at all 3. Trouble falling or staying asleep, or sleeping too much: not at all 4. Feeling tired or having little energy: not at all 5. Poor appetite or overeating: not at all 6. Feeling bad about yourself - or that you are a failure or have let yourself or your family down: not at all 7. Trouble concentrating on things, such as reading the newspaper or watching television: not at all 8. Moving or speaking so slowly that other people could have noticed. Or the opposite - being so fidgety or restless that you have been moving around a lot more than usual: not at all 9. Thoughts that you would be better off or of hurting yourself in some way: not at all Total score: 0 Depression Screening Interpretation: Negative Depression Screening Done: Yes 55551 - PHQ-9 Billing: Yes Source: Developed by Drs. Giorgi Glover, Deepthi Tyler, Felipe Gauthier and colleagues, with an educational charley from [email or web address]. Thrive Questionnaire Date Thrive assessed: 12/04/23 I am a: Patient What is your living situation today?: I have a steady place to live Within the past 12 months, did the food you bought not last and you didn't have the money to get more?: Never true Within the past 12 months, did you worry whether your food would run out before you got money to buy more?: Never true Do you have trouble paying for medicines?: No Do you have trouble getting transportation to medical appointments?: No Do you have trouble paying your heating and electricity bill?: No Do you have trouble taking care of your child, family member or friend?: No Do you have trouble with day-to-day activities such as bathing, preparing meals, shopping, managing finances, etc.?: No Are you currently unemployed and looking for a job?: No Are you interested in more education?: No Currently or been in a relationship where the following occur: I choose not to answer this question THRIVE Score: 0 AUDIT C Alcohol Use Questionnaire (AUDIT-C) 1. How often do you have a drink containing alcohol?: Never 3. How often do you have six or more drinks on one occasion?: Never Total Score: 0 Score Reviewed/Action Taken: No WILMER-7 AMB Questionnaire WILMER-7 Date WILMER - 7 assessed: 01/13/24 Feeling nervous, anxious, or on edge: 0 = Not at all Not being able to stop or control worryin = Not at all Worrying too much about different things: 0 = Not at all Trouble relaxin = Not at all Being so restless that it is hard to sit still: 0 = Not at all Becoming easily annoyed or irritable: 0 = Not at all Feeling afraid as if something awful might happen: 0 = Not at all Total WILMER-7 score (0-4 normal; 5-9 mild; 10-14 moderate; 15-21 severe): 0 Source: Developed by Drs. Giorgi Glover, Deepthi Tyler, Felipe Gauthier and colleagues, with an educational charley from [email or web address]. WILMER-7 Assessment Billing WILMER-7 Assessment Tool: WILMER-7 Assessment 52384 Review of Systems Const Reports as per HPI Physical exam (Primary Care) Vital Signs: Last Vital Signs Pulse 85 01/13/24 09:20 BP 108/64 01/13/24 09:20 Pulse Ox 98 01/13/24 09:20 Oxygen Delivery Method Room Air 01/13/24 09:20 Tobacco/Smoking Status: Tobacco use Status Tobacco use date assessed 12/04/23 01/13/24 09:19 Patient Tobacco Use Status Never used Tobacco 01/13/24 09:19 e-Cigarette/Vaping Use Never Used 01/13/24 09:19 Depression Screening Interpretation: Negative Thrive Assessment: Date of Thrive Assessment Date Thrive assessed 12/04/23 01/13/24 09:19 Currently or been in a relationship where the following occur: I choose not to answer this question Const Other: using a cane General: cooperative Orientation/consciousness: patient oriented x3 Resp Effort & Inspection: normal respiratory effort Cardio Rate: regular rate Rhythm: regular rhythm Heart sounds: S1 normal heart sound present, S2 normal heart sound present and no murmurs GI Inspection: Yes normal to inspection Palpation (GI): Soft to palpation, not firm and nontender Neuro General: patient oriented x3 Psych Appearance: grossly normal Mental Status: mental status grossly normal Speech and movement: Normal speech and movement present Affect: normal affect Attitude: cooperative Thought process: Normal thought process present Thought content: Normal thought content present Insight: Good insight present (Psych) Judgement: Good judgement present (Psych) Results AMB Hemoglobin A1c AMB Hemoglobin A1c 8.2 % Last Edit by PAOLA Ge on 01/13/24 09 :39 Results Reviewed Results Reviewed: Laboratory Last Values Hgb A1c (Clinic) 8.2 % (4.0-6.0) H 01/13/24 09:38 Assessment and Plan Assessment & Plan (1) Colon cancer metastasized to liver: Code(s): C18.9 - Malignant neoplasm of colon, unspecified; C78.7 - Secondary malignant neoplasm of liver and intrahepatic bile duct Plan: Continue to follow up with oncology (2) Type 2 diabetes mellitus with hyperglycemia, with long-term current use of insulin: Code(s): E11.65 - Type 2 diabetes mellitus with hyperglycemia; Z79.4 - superintendent marine oil terminal (current) use of insulin Plan: increasing long acting insulin to 40 units from 35 units. Reenforced importance of meal time insulins. Plan The patient agreed to the use of a medical technologist chemistry for this encounter. Scribed for STACEY Villanueva by Zulma Helton medical technologist chemistry, on 01/13/2024 at 09:35 EST. Orders: Orders AMB Hemoglobin A1c Today Z13.9 - Encounter for screening, unspecified Referrals Ophthalmology Referral E11.65 - Type 2 diabetes mellitus with hyperglycemia, Z79.4 - superintendent marine oil terminal (current) use of insulin Medications: Changed From insulin degludec (Tresiba FlexTouch U-200 insulin) 35 units subcut DAILY To insulin degludec (Tresiba FlexTouch U-200 insulin) 40 units (0.2 mL) subcut DAILY 9 mL 1RF Coding Level of Care Code Est Pt Level 3 (55166) Diagnoses Colon cancer metastasized to liver C18.9; C78.7 Type 2 diabetes mellitus with hyperglycemia, with long-term current use of insulin E11.65; Z79.4 Additional Codes WILMER-7 Assessment Billing - WILMER-7 Assessment Tool: WILMER-7 Assessment 19945 ([id number])
[2024-01-13 09:20] VITALS: BP 108/64; PULSE 85; O2SAT 98
== END 2024-01-13 09:50 | disposition home or self-care (01) ==
PROVIDERS: PCP Nurse Practitioner Family; Visit Provider Nurse Practitioner Family
DX: E11.65 Type 2 diabetes mellitus with hyperglycemia (principal); Z79.4 Long term (current) use of insulin; C18.9 Malignant neoplasm of colon, unspecified; C78.7 Secondary malignant neoplasm of liver and intrahepatic bile duct
CPT/HCPCS: 83036; 99213

== ENCOUNTER 2024-02-13 10:57 | Outpatient (AMB) | payer MEDICARE, SELFPAY ==
--- NOTE | 2024-02-13 10:59 | A.OFFVIS_ITS ---
Vital Signs 02/13/24 11:05 Height 5 ft 10 in Weight 192 lb 10.944 oz BMI 27.6 BP 104/60 Blood Pressure Location Rt brachial Position Sitting Pulse 71 Pulse Source Pulse Oximeter Intake Visit Reasons: [id number] Intake Note: New patient today for Type 2 Diabetes Mellitus. Patient reports he has Stage 4 Liver cancer, by product of Colon Cancer and is currently on chemo therapy. Patient is receiving DME supplies through: Pharmacy Last Diabetic Eye exam: Has an upcoming appointment 02/24/2024 Last Podiatry Visit: approx 1 month ago Random Glucose: 147 mg/dl HgA1C: 8.2% 01/13/2024 Tax Professional Required: No Accompanied by: Self / Same As Patient Allergies No Known Allergies [No Known Allergies*] Allergy (Verified 02/13/24 11:08) Medication List - Last Reconciled 02/13/24 by Perla Lopes PA-C aspirin 162 mg (2 x 81 mg) PO DAILY 90 days atorvastatin 40 mg PO DAILY 90 days blood sugar diagnostic As directed empagliflozin (Jardiance) 25 mg PO QAM 90 days FreeStyle Justina 2 [place] (flash glucose scanning reader) TID NS FreeStyle Justina 2 Sensor (flash glucose sensor) tid NS insulin degludec (Tresiba FlexTouch U-200 insulin) 40 units (0.2 mL) subcut DAILY insulin lispro (Humalog KwikPen (U-100) Insulin) 1 sliding scale dose subcut USEASDIRECTD lisinopril 20 mg PO DAILY metformin 1,000 mg PO BID multivitamin 1 tab PO DAILY pantoprazole 40 mg PO DAILY pioglitazone (Actos) 30 mg PO DAILY tamsulosin 0.4 mg PO BEDTIME 90 days HPI HPI [id number]: Details: Patient is a 68-year-old male with a significant past medical history of metastatic colon cancer, BPH, PAD, DAVIAN, hypertension, hypertension CKD, hyperlipidemia, peripheral neuropathy, diabetic nephropathy with microalbuminuria, insulin-dependent type 2 diabetes, 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 Endo: He used to follow here for his diabetes (2021) and then switched to [place] with Dr. Stallworth until recently and has reestablish care here. Last A1c within the month was 8.3. He states that his numbers used to be better but he has not been as faithful with checking his blood sugars and wearing his CGM. He also was not really using mealtime insulin and only taking metformin once a day. He was supposed to be taking 35 units of Tresiba at in the morning, Humalog sliding scale, metformin 1000 mg twice a day, Jardiance 25 mg daily, Actos 30 mg daily. At his last PCP visit a few weeks ago he was increased on his Tresiba to 42 units advised to start a sliding scale. He tells me that a visiting nurse came over last week and provided him a sliding scale for the Humalog but he lost a in his messages on his phone. He states that he has been intermittently taking the Humalog in just guessing and giving himself somewhere between 10-14 units depending on if his sugars were looking like they were increasing. He states that he also did not think it was a big deal that he was not taking his metformin as directed but thinks that he is able to remember to take this. -He has been under a lot of stress with his metastatic ca dx -in the past he was on Trulicity and tolerated this well. He states he was told to discontinue because his mother had a history of pancreatic cancer. He would like diabetic Education. States that he had this in the past and it was helpful in the things while he gets re-established with his medication and insulin regimen he would like to see her again. CGM: Active 16%. Very high-33%, high-30%, within target at 37%, no lows -denies any hypoglycemic symptoms. We did discuss his his complications with his diabetes including his nephropathy with the proteinuria, CKD, peripheral neuropathy. He has also had a prior CVA in 2021 Nephro: Following with Dr. Jane. CV: Blood pressure today in the office is 104/60. No chest pain, shortness of breath or palpitations. He is managed with lisinopril 20 mg. His cholesterol he states is controlled with atorvastatin. Continues on aspirin daily. Follows with vascular surgery Dr. Mendenhall. Heme/onc: Patient reports that he was scheduled for surgery on 02/03 but he had an ERCP a couple weeks ago which made a no longer a surgical candidate. Abdomen MRI with and without contrast obtained 12/24/20[facility] revealed subtle hypoenhancing mass at the bifurcation of right and left hepatic ducts measuring 1.1 cm, decreased from prior MRI. Moderate intrahepatic biliary duct dilatation and intrahepatic segments 5/6/7 similar to prior scans. On 01/26/2024 patient underwent ERCP and biopsy of left and right intrahepatic bile ducts by Dr. Agudelo, pathology-left intrahepatic duct: Small fragments of ductal epithelium with reactive changes, negative for malignancy. Right intrahepatic duct biopsy: High-grade dysplasia/adenocarcinoma -He restarted chemo this past week and states that he was told he may have to go until April with the chemo. Fortunately, he is tolerating this very well. Denies any adverse effects. [facility] Medical History Stroke Ulnar neuropathy at elbow Sleep apnea Acute embolic stroke Xerosis cutis CKD (chronic kidney disease) stage 2, GFR 60-89 ml/min Persistent proteinuria Hypertensive nephrosclerosis Elevated alkaline phosphatase level Cataract Fuchs' corneal dystrophy Colon cancer RLS (restless legs syndrome) Obesity (BMI 30.0-34.9) Dyslipidemia Type 2 diabetes mellitus with diabetic polyneuropathy Hypertension Neuropathy Diabetes mellitus Erectile dysfunction Surgical History History of esophagogastroduodenoscopy (EGD) Hx of left cataract extraction Hx of cornea transplant History of colonoscopy (~03/15/19) History of colon resection (~04/20/19) Family History Mother History of pancreatic cancer Father No problems noted. Brother Diabetes Maternal Grandmother Diabetes Social History Household Members: None Housing: Condominium Are you a primary healthcare network consultant to a significant other at home: No Do you presently have visiting nurse or other home services: No Alcohol intake: never Patient Tobacco Use Status: Never used Tobacco e-Cigarette/Vaping Use: Never Used Second Hand Smoke Exposure: No Advance Directives Date on File: 05/14/22 service: No Current occupational status: retired Cognitive needs: No Hearing needs: No Vision needs: No Physical Exam Vital Signs: Last Vital Signs Pulse 71 02/13/24 11:05 BP 104/60 02/13/24 11:05 BMI result Body Mass Index 27.6 Const Orientation/consciousness: patient oriented x3 HEENT Ears: hearing grossly normal bilaterally Neck Thyroid: Thyroid normal Lymphatic: no lymphadenopathy noted Resp Auscultation: clear to auscultation bilaterally Cardio Rate: regular rate Rhythm: regular rhythm Heart sounds: S1 normal heart sound present and S2 normal heart sound present Skin General skin exam: no rashes or lesions noted Neuro General: patient oriented x3, gait normal and no focal motor deficits Extrem Other: Diminished DP pulses bilaterally. Diminished sensation to the monofilament test on the plantar aspect of bilateral feet. Sensation intact on the dorsum of the feet. Sensation intact of the lower legs. Skin intact. Results Reviewed Results Reviewed: Laboratory Last Values Glucose (Clinic) 147 mg/dL (60-115) H 02/13/24 11:17 Laboratory Tests 01/20/23 01/13/24 02/11/24 13:00 09:38 08:15 Sodium 140 Potassium 4.4 Chloride 110 H Carbon Dioxide 23 Anion Gap 11 L BUN 28 H Creatinine 0.87 Estim Creat Clear Calc 81.5 Estimated GFR > 60 Random Glucose 206 H Hgb A1c (Clinic) 8.2 H Calcium 8.7 D AST 27 ALT 21 Urine Creatinine 79.32 Urine Microalbumin 27.0 Microalb/Creat Ratio 34.0 Assessment & Plan Assessment & Plan (1) Type 2 diabetes mellitus with hyperglycemia, with long-term current use of insulin: Code(s): E11.65 - Type 2 diabetes mellitus with hyperglycemia; Z79.4 - shelter (current) use of insulin Category: Medical Plan: I was able to find his sliding scale for him on his phone and provided him a copy in the office. He will use the Humalog sliding scale, he will increase his usage of the CGM.. I will have him start taking the metformin in the evening as well. I have also I have also referred him for diabetic Education. He will follow-up with me in 2 weeks to be reassessed. We discussed making insulin adjustments at that time if needed or sooner if anything changes. Signs and symptoms of hyper and hypoglycemia require emergent medical treatment were discussed. More than 1 hr was spent in face to face time with pt today. 1 hr was spent reviewing chart, consult notes, imaging, labs (2) Type 2 diabetes mellitus with other diabetic kidney complication: Code(s): E11.29 - Type 2 diabetes mellitus with other diabetic kidney complication Category: Medical Plan: Has an upcoming appointment with Nephrology. (3) Type 2 diabetes mellitus with diabetic polyneuropathy: Code(s): E11.42 - Type 2 diabetes mellitus with diabetic polyneuropathy Category: Medical Qualifiers: Diabetes mellitus lobsterman insulin use: with assisted use Qualified Code(s): E11.42 - Type 2 diabetes mellitus with diabetic polyneuropathy; Z79.4 - shelter (current) use of insulin Plan: Used to be on gabapentin and does not feel that the neuropathy bothers him enough to be on any medication. He checks his feet regularly. No wounds noted today. (4) Colon cancer metastasized to liver: Code(s): C18.9 - Malignant neoplasm of colon, unspecified; C78.7 - Secondary malignant neoplasm of liver and intrahepatic bile duct Category: Medical Plan: Continue with Dr. Tolbert (5) Dyslipidemia: Code(s): E78.5 - Hyperlipidemia, unspecified Category: Medical Plan: will monitor lipids (6) Hypertension: Code(s): I10 - Essential (primary) hypertension Category: Medical Qualifiers: Hypertension type: essential hypertension Qualified Code(s): I10 - Essential (primary) hypertension Plan: wnl. continue current treatment plan. Coding Level of Care Code Est Pt Level 5 (84043) Diagnoses Type 2 diabetes mellitus with hyperglycemia, with long-term current use of insulin E11.65; Z79.4 Type 2 diabetes mellitus with other diabetic kidney complication E11.29 Type 2 diabetes mellitus with diabetic polyneuropathy, with long-term current use of insulin E11.42; Z79.4 Diabetes mellitus assisted insulin use: with assisted use Colon cancer metastasized to liver C18.9; C78.7 Dyslipidemia E78.5 Essential hypertension I10 Hypertension type: essential hypertension
[2024-02-13 11:05] VITALS: BP 104/60; PULSE 71; BMI 27.6
[2024-02-13 11:24] LABS: Glucose, Whole Blood 147 mg/dL (60-115)
== END 2024-02-13 11:59 | disposition home or self-care (01) ==
PROVIDERS: PCP Nurse Practitioner Family; Visit Provider Physician Assistant
DX: E11.65 Type 2 diabetes mellitus with hyperglycemia (principal); Z79.4 Long term (current) use of insulin; E11.29 Type 2 diabetes mellitus with other diabetic kidney complication; E11.42 Type 2 diabetes mellitus with diabetic polyneuropathy; C18.9 Malignant neoplasm of colon, unspecified; C78.7 Secondary malignant neoplasm of liver and intrahepatic bile duct; E78.5 Hyperlipidemia, unspecified; I10 Essential (primary) hypertension
CPT/HCPCS: 99215

== ENCOUNTER → 2024-02-13 10:57 | Outpatient (BNVA) | payer MEDICARE, SELFPAY | PROVIDERS: PCP Nurse Practitioner Family; Visit Provider Physician Assistant | DX: E11.65 Type 2 diabetes mellitus with hyperglycemia (principal); E11.29 Type 2 diabetes mellitus with other diabetic kidney complication; E11.42 Type 2 diabetes mellitus with diabetic polyneuropathy; E78.5 Hyperlipidemia, unspecified; I10 Essential (primary) hypertension; C18.9 Malignant neoplasm of colon, unspecified; C78.7 Secondary malignant neoplasm of liver and intrahepatic bile duct; Z79.4 Long term (current) use of insulin | CPT/HCPCS: 82947; 99212 ==

== ENCOUNTER 2024-02-26 07:10 | Outpatient (AMB) | payer MEDICARE, SELFPAY ==
--- NOTE | 2024-02-26 08:04 | MHC.AMDMED ---
Intake Intake Visit Reasons: DM-confirmed Hospital Account Manager Required: No Accompanied by: Self / Same As Patient Allergies No Known Allergies [No Known Allergies*] Allergy (Verified 02/13/24 11:08) HPI Comprehensive Diabetes Asmnt Most Recent Diabetes Results: Hemoglobin A1c 8.2 % 02/25/20 Microalb/Creat Ratio 34.0 ug/mg cr 01/20/23 Cholesterol 139 mg/dL 01/20/23 HDL Cholesterol 47 mg/dL 01/20/23 Triglycerides 71 mg/dL 01/20/23 Creatinine 1.17 mg/dL (0.5-1.4) 02/25/24 Blood Urea Nitrogen 24 mg/dL (9-16) H 02/25/24 Sodium 143 mmol/L (135-145) 02/25/24 Potassium 4.1 mmol/L (3.3-5.1) 02/25/24 Chloride 110 mmol/L (96-108) H 02/25/24 Carbon Dioxide 22 mmol/L (22-29) 02/25/24 Calcium 9.5 mg/dL (8.4-10.2) 02/25/24 AST 30 U/L (5-37) 02/25/24 ALT 26 U/L (0-40) 02/25/24 Total Protein 6.7 g/dL (6.5-8.0) 02/25/24 Albumin 4.0 g/dL (3.5-5.0) 02/25/24 [facility] Medical History Stroke Ulnar neuropathy at elbow Sleep apnea Acute embolic stroke Xerosis cutis CKD (chronic kidney disease) stage 2, GFR 60-89 ml/min Persistent proteinuria Hypertensive nephrosclerosis Elevated alkaline phosphatase level Cataract Fuchs' corneal dystrophy Colon cancer RLS (restless legs syndrome) Obesity (BMI 30.0-34.9) Dyslipidemia Type 2 diabetes mellitus with diabetic polyneuropathy Hypertension Neuropathy Diabetes mellitus Erectile dysfunction Surgical History History of esophagogastroduodenoscopy (EGD) Hx of left cataract extraction Hx of cornea transplant History of colonoscopy (~03/15/19) History of colon resection (~04/20/19) Family History Mother History of pancreatic cancer Father No problems noted. Brother Diabetes Maternal Grandmother Diabetes Social History Household Members: None Housing: Condominium Are you a primary care management assistant to a significant other at home: No Do you presently have visiting nurse or other home services: No Alcohol intake: never Patient Tobacco Use Status: Never used Tobacco e-Cigarette/Vaping Use: Never Used Second Hand Smoke Exposure: No Advance Directives Date on File: 05/14/22 service: No Current occupational status: retired Cognitive needs: No Hearing needs: No Vision needs: No Assessment & Plan Assessment & Plan (1) Type 2 diabetes mellitus with hyperglycemia, with long-term current use of insulin: Code(s): E11.65 - Type 2 diabetes mellitus with hyperglycemia; Z79.4 - [facility] (current) use of insulin Plan: Diabetes self-management education and support participation record Assessment/scale: 1= needs instructed? 2= needs review? 3= comprehend keep point? 4= demonstrates understanding/ competent? NC= Not Covered Topics Learning Objective: Initial visit Initial or post srvc Initial or post srvc Initial or post srvc Initial or post srvc Initial or post srvc Post srvc Comments Pre Edu-assessment/plan Outcome or reassess Outcome or reassess Outcome or reassess Outcome or reassess Outcome or reassess Outcome or reassess Diabetes pathophysiology 2 Healthy eating 2 Being active Taking medication 2 Monitoring glucose 2 Acute complication Chronic complicated Lifestyle and healthy coping Diabetes distress in support ?Diabetes pathophysiology: ?Defined diabetes med identify own type of diabetes; list 3 options for treating diabetes Healthy eating: ?Described effect of type, amount and ?timing of food on blood glucose; list 3 methods for planning meal Being active: ?State effect of exercise on blood glucose level Taking medication: ?State effect of diabetes medications on diabetes; name diabetes medications taking, action and side effects Monitoring glucose: ?Identify recommended blood glucose targets and personal target Acute complication: ?List symptoms and treatment of hyper and hypoglycemia, DKA, sick day guidelines and guidelines for severe weather or situations of crisis and diabetes supply manage Chronic complication: ?To find the relationship of blood glucose levels to long-term complications of diabetes in screening and preventative measures Lifestyle and healthy coping: ?Described lifestyle and healthy coping strategies to rule out diabetes self-management Diabetes to stress and support: ?Recognize Diabetes to stress and be able to identified support options Learning objectives: The patient was provided with verbal and written education on the following topics as outlined below. The patient met all learning objectives and was able to verbalize understanding and provide teach back of education topics discussed . The patient was provided with the opportunity to ask questions and all questions were answered. Patient Assessment Assess patient education level/literacy/barriers, patient could identify carbohydrate that he currently eats from carbohydrate list Patient questions/concerns patient's last A1c on 01/13/2024 8.2%. Patient reports he has had Diabetes Education, it has been awhile he indicated at last visit with PA that he was interested in refreshing his diabetes knowledge Patient is currently undergoing chemotherapy for stage IV liver cancer. Patient is taking: Tresiba 42 units daily Humalog sliding scale: 70-119 mg/dL take 6 units 120-169 mg/dL take 8 units 170-219 mg/dL take 10 units 220-269 mg/dL take 12 units 270-319 mg/dL take 14 units 320-399 mg/dL take 18 units Patient is also on Jardiance 25 mg daily Actos 30 mg daily Metformin 1000 mg b.i.d. What is Diabetes? Pathophysiology How the body produces and uses insulin Identify type of DM Risk factors Signs of Diabetes Brief overview of Diabetes Management Monitoring blood sugar Following a meal plan Regular exercise Maintaining a healthy weight Taking medication as needed Members of the care team (PCP, RN, MA, RD, CDE, salesperson handbags) Blood glucose monitoring When/how often to test Target blood sugar ranges Patient is using Justina 2 sensor to test glucose Average glucose on sensor 160 mg/dL Above target 33% At target 67% Below target 0% Patient has large gaps in glucose data, Time CGM active 40% Instructed patient that sensor only holds up to 8 hours worth of data, in order to capture all glucose data Justina 2 sensor should be scanned every 4-6 hours while awake Patient expressed frustration with scan errors he frequently gets. Recommended to patient to upgrade to Justina 3 sensor, to eliminate the necessity for scanning sensor Introduction to Nutrition Importance of healthy diet in managing DM Diet is personalized to individual preference Review patient?s regular diet/food preferences Who prepares meals/does food shopping/ Dining out?/ Barriers? How diet effects glucose Eating 3 balanced meals a day with small, healthy snacks between meals Review food groups Carbohydrates: What is a carbohydrate/Which food/food groups are considered carbohydrates Effect of carbohydrates on blood glucose Portion sizes Reading food labels Basic carb counting (if applicable per nursing assessment) Plate method Meal planning Recommendations: Follow plate method, consistent carbs and read nutritional labels. Smart Goal: Patient will scan Justina 2 sensor every 4-6 hours while awake Educational Materials: The patient was provided with the following written educational materials: Planning Healthy Meals Handout Patient Response to instructions: Comprehension of Instructions: Fair Readiness to make changes: Contemplation How confident they feel about making changes: Positive Portions of this note were created using voice recognition software, please excuse any words or phrases that may have been misinterpreted. Patient Instructions: Include regular daily activity. ADA recommends 30 minutes of exercise 5 days a week. Weight loss talk to PCP or Dynamite Packing Machine Operator before starting new plan. Test blood sugar as directed; Fasting and 2hpp largest meal. Watch trends in results. Utilize results and to assess how food, physical activity and medications affect blood sugar results. Bring glucometer or CGM to next visit. Be knowledgeable about diabetes medication, its action, side effects, efficacy, toxicity, prescribed dosage, appropriate timing and frequency of administration, effect of missed and delayed doses and instructions for storage, travel and safety. Problem solving techniques to monitor hypo/hyperglycemia episodes and treatments. Reduce risk reduction behaviors, smoking cessation, regular eye, foot and dental examinations. Patient will follow-up with certified adaptive physical educator in 6 weeks Coding Level of Care Code Est Pt Level 1 (54080) Diagnoses Type 2 diabetes mellitus with hyperglycemia, with long-term current use of insulin E11.65; Z79.4
== END 2024-02-26 08:07 | disposition home or self-care (01) ==
PROVIDERS: PCP Nurse Practitioner Family; Visit Provider Registered Nurse Diabetes Educator
DX: E11.65 Type 2 diabetes mellitus with hyperglycemia (principal); Z79.4 Long term (current) use of insulin

== ENCOUNTER → 2024-02-26 07:10 | Outpatient (BNVA) | payer MEDICARE, SELFPAY | PROVIDERS: PCP Nurse Practitioner Family; Visit Provider Registered Nurse Diabetes Educator | DX: E11.65 Type 2 diabetes mellitus with hyperglycemia (principal); Z79.4 Long term (current) use of insulin; Z79.84 Long term (current) use of oral hypoglycemic drugs; Z79.60 Long term (current) use of unspecified immunomodulators and immunosuppressants | CPT/HCPCS: 99211 ==

== ENCOUNTER 2024-02-27 11:32 | Outpatient (AMB) | payer MEDICARE, SELFPAY ==
[2024-02-27 11:38] VITALS: BP 114/56; PULSE 71; BMI 27.7
--- NOTE | 2024-02-27 11:38 | A.OFFVIS_ITS ---
Vital Signs 02/27/24 11:38 Height 5 ft 10 in Weight 193 lb 1.999 oz BMI 27.7 BP 114/56 L Blood Pressure Location Lt brachial Position Sitting Pulse 71 Pulse Source Pulse Oximeter Intake Visit Reasons: DM/CONFIRMED Intake Note: New patient present today for Type 2 Diabetes Mellitus. Referred by PCP. Last Diabetic Eye exam: 02/2024 Last Podiatry Visit: 12/2023 Random Glucose: 212 mg/dl HgA1C: 8.2% 01/13/2024 Steam Clean Machine Operator Required: No Accompanied by: Self / Same As Patient Allergies No Known Allergies [No Known Allergies*] Allergy (Verified 02/27/24 11:46) Medication List - Last Reconciled 02/27/24 by Perla Lopes PA-C aspirin 162 mg (2 x 81 mg) PO DAILY 90 days atorvastatin 40 mg PO DAILY 90 days blood sugar diagnostic As directed cephalexin 500 mg PO Q12H empagliflozin (Jardiance) 25 mg PO QAM 90 days insulin degludec (Tresiba FlexTouch U-200 insulin) 40 units (0.2 mL) subcut DAILY insulin lispro (Humalog KwikPen (U-100) Insulin) 1 sliding scale dose subcut USEASDIRECTD lisinopril 20 mg PO DAILY metformin 1,000 mg PO BID multivitamin 1 tab PO DAILY pantoprazole 40 mg PO DAILY pioglitazone (Actos) 30 mg PO DAILY tamsulosin 0.4 mg PO BEDTIME 90 days HPI HPI DM/CONFIRMED: Details: Patient is a 68-year-old male with a significant past medical history of metastatic colon cancer, BPH, PAD, DAVIAN, hypertension, hypertension CKD, hyperlipidemia, peripheral neuropathy, diabetic nephropathy with microalbuminuria, insulin-dependent type 2 diabetes, prior CVA with residual r ight-sided weakness (requires cane). Endo: He is currently on metformin 1000 mg twice a day, Jardiance 25 mg daily, Actos 30 mg daily. He is on Tresiba 42 units. He was supposed to be on a Humalog sliding scale however, states that he does not look at the sliding scale and discuss himself 16 units for lunch and dinner. He will sometimes give himself insulin with breakfast but he is inconsistent with this. Most of his high readings are after lunch time and in the later afternoon. He states that after he went to diabetic Education he realizes that he has been probably eating too much. Most of his dinner is consist with chicken parm, beef and noodles, etc. CGM: Active 40% (gets a lot of errors). Avg 160 glucose, variability 41.7%. Very high-10%, high-24%, within target at 66%, no lows -denies any hypoglycemic symptoms. We did discuss his his complications with his diabetes including his nephropathy with the proteinuria, CKD, peripheral neuropathy. He has also had a prior CVA in 2021 Nephro: Following with Dr. Jane. CV: Blood pressure today in the office is 114.56. No chest pain, shortness of breath or palpitations. He is managed with lisinopril 20 mg. His cholesterol he states is controlled with atorvastatin. Continues on aspirin daily. Follows with vascular surgery Dr. Mendenhall. Heme/onc: Patient reports that he was scheduled for surgery on 02/03 but he had an ERCP a couple weeks ago which made a no longer a surgical candidate. Abdomen MRI with and without contrast obtained 12/24/2023 at [facility] revealed subtle hypoenhancing mass at the bifurcation of right and left hepatic ducts measuring 1.1 cm, decreased from prior MRI. Moderate intrahepatic biliary duct dilatation and intrahepatic segments 5/6/7 similar to prior scans. On 01/26/2024 patient underwent ERCP and biopsy of left and right intrahepatic bile ducts by Dr. Agudelo, pathology-left intrahepatic duct: Small fragments of ductal epithelium with reactive changes, negative for malignancy. Right intrahepatic duct biopsy: High-grade dysplasia/adenocarcinoma -He restarted chemo this past week. Fortunately, he is tolerating this very well. Denies any adverse effects. [facility] Medical History Stroke Ulnar neuropathy at elbow Sleep apnea Acute embolic stroke Xerosis cutis CKD (chronic kidney disease) stage 2, GFR 60-89 ml/min Persistent proteinuria Hypertensive nephrosclerosis Elevated alkaline phosphatase level Cataract Fuchs' corneal dystrophy Colon cancer RLS (restless legs syndrome) Obesity (BMI 30.0-34.9) Dyslipidemia Type 2 diabetes mellitus with diabetic polyneuropathy Hypertension Neuropathy Diabetes mellitus Erectile dysfunction Surgical History History of esophagogastroduodenoscopy (EGD) Hx of left cataract extraction Hx of cornea transplant History of colonoscopy (~03/15/19) History of colon resection (~04/20/19) Family History Mother History of pancreatic cancer Father No problems noted. Brother Diabetes Maternal Grandmother Diabetes Social History Household Members: None Housing: Condominium Are you a primary infant childcare provider to a significant other at home: No Do you presently have visiting nurse or other home services: No Alcohol intake: never Patient Tobacco Use Status: Never used Tobacco e-Cigarette/Vaping Use: Never Used Second Hand Smoke Exposure: No Advance Directives Date on File: 05/14/22 service: No Current occupational status: retired Cognitive needs: No Hearing needs: No Vision needs: No Physical Exam Vital Signs: Last Vital Signs Pulse 71 02/27/24 11:38 BP 114/56 L 02/27/24 11:38 BMI result Body Mass Index 27.7 Results Reviewed Results Reviewed: Laboratory Tests 01/20/23 02/25/24 02/25/24 13:00 08:22 08:45 Sodium 143 Potassium 4.1 Chloride 110 H Carbon Dioxide 22 Anion Gap 15 BUN 24 H Creatinine 1.17 Estim Creat Clear Calc 60.6 Estimated GFR > 60 Random Glucose 145 H Calcium 9.5 D Total Bilirubin 0.6 AST 30 ALT 26 Alkaline Phosphatase 137 H Total Protein 6.7 Albumin 4.0 Urine Color Yellow Urine Appearance Cloudy Urine pH 7.0 Ur Specific [place] >= 1.030 H Urine Protein Negative Urine Glucose (UA) >=1000 H Urine Ketones Negative Urine Blood Negative Urine Nitrite Negative Ur Leukocyte Esterase Trace H Urine RBC 0-2 Urine WBC >50 H Ur Squamous Epith Cells 0-2 Urine Bacteria 4+ Hyaline Casts 0-2 Urine Creatinine 79.32 Urine Microalbumin 27.0 Microalb/Creat Ratio 34.0 Assessment & Plan Assessment & Plan (1) Type 2 diabetes mellitus with hyperglycemia, with long-term current use of insulin: Code(s): E11.65 - Type 2 diabetes mellitus with hyperglycemia; Z79.4 - 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 He states that his meals do not change much. Continue Tresiba, metformin, Jardiance and Actos. Will order a freestyle 3 for continuous monitoring. He is struggling with remembering to check his CGM. He also finds that he gets a lot of errors. Follow-up in a few weeks to be reassessed. Sooner if needed. Medications: New blood-glucose sensor (FreeStyle Justina 3 Sensor device) Apply every 14 days As directed 2 ea 11RF E11.9 - Type 2 diabetes mellitus without complications, Z79.4 - [facility] (current) use of insulin blood-glucose meter,continuous (FreeStyle Justina 3 [place]) As directed 1 ea 0RF E11.65 - Type 2 diabetes mellitus with hyperglycemia, Z79.4 - [facility] (current) use of insulin Changed From insulin lispro (Humalog KwikPen (U-100) Insulin) TID before meals dosing, per sliding scale. 1 sliding scale dose subcut USEASDIRECTD To insulin lispro (Humalog KwikPen (U-100) Insulin) inject 4 units sq with breakfast, injection 18 units sq with lunch and dinner. 1 sliding scale dose subcut USEASDIRECTD 15 mL 2RF Coding Level of Care Code Est Pt Level 4 (75443) Diagnoses Type 2 diabetes mellitus with hyperglycemia, with long-term current use of insulin E11.65; Z79.4
[2024-02-27 11:48] LABS: Glucose, Whole Blood 212 mg/dL (60-115)
== END 2024-02-27 12:13 | disposition home or self-care (01) ==
PROVIDERS: PCP Nurse Practitioner Family; Visit Provider Physician Assistant
DX: E11.65 Type 2 diabetes mellitus with hyperglycemia (principal); Z79.4 Long term (current) use of insulin
CPT/HCPCS: 99214

== ENCOUNTER → 2024-02-27 11:32 | Outpatient (BNVA) | payer MEDICARE, SELFPAY | PROVIDERS: PCP Nurse Practitioner Family; Visit Provider Physician Assistant | DX: E11.65 Type 2 diabetes mellitus with hyperglycemia (principal); Z79.4 Long term (current) use of insulin | CPT/HCPCS: 82947; 99212 ==

== ENCOUNTER 2024-03-02 09:45 | Outpatient (AMB) | payer MEDICARE, SELFPAY ==
--- NOTE | 2024-03-02 09:51 | MHC.OFFVIS ---
Intake Visit Reasons: 3M Med Review/PVR(Tamsulosin) Intake Note: Patient is Present for PVR/Med Review Urology Med: Tamsulosin Antibiotic Allergy:None Blood Thinner:Aspirin Last PVR: 415 Todays PVR: 456ml Patient states that the Tamsulosin has been working good for him Us Administrative Law Judge Required: No Allergies No Known Allergies [No Known Allergies*] Allergy (Verified 03/02/24 09:58) Medication List - Last Reconciled 03/02/24 by Doe Moses MD aspirin 162 mg (2 x 81 mg) PO DAILY 90 days atorvastatin 40 mg PO DAILY 90 days bethanechol chloride 50 mg PO BID 30 days blood sugar diagnostic As directed blood-glucose meter,continuous (FreeStyle Justina 3 [place]) As directed blood-glucose sensor (FreeStyle Justina 3 Sensor device) Apply every 14 days As directed cephalexin 500 mg PO Q12H empagliflozin (Jardiance) 25 mg PO QAM 90 days insulin degludec (Tresiba FlexTouch U-200 insulin) 40 units (0.2 mL) subcut DAILY insulin lispro (Humalog KwikPen (U-100) Insulin) 1 sliding scale dose subcut USEASDIRECTD lisinopril 20 mg PO DAILY metformin 1,000 mg PO BID multivitamin 1 tab PO DAILY pantoprazole 40 mg PO DAILY pioglitazone (Actos) 30 mg PO DAILY tamsulosin 0.4 mg PO BEDTIME 90 days HPI Comments Details: Navarro is a pleasant male. He is a patient of . He is seen for the following urologic conditions - incomplete bladder emptying with urinary retention Three-month follow-up Has been using tamsulosin to stabilize bladder Medication has been effective Has not been catheterizing as frequently Does have chronic colonization Would suggest catheterizing once at night Try bethanechol May benefit from trial InterStim Neurogenic bladder Background of liver cancer Has been on chemotherapy Persistent constipation with inability to empty bladder Type 2 diabetic with long-term insulin Urinary frequency waking hourly at night with small degree of urine emptying consistent with urinary overflow The above conditions have impacted his ability to empty his bladder. It appears to have some degree of neurogenic compromise. Clean intermittent catheterization 3 times per day would allow him to get adequate sleep. Clean intermittent catheterization 3 times per day for the foreseeable future [facility] Medical History Stroke Ulnar neuropathy at elbow Sleep apnea Acute embolic stroke Xerosis cutis CKD (chronic kidney disease) stage 2, GFR 60-89 ml/min Persistent proteinuria Hypertensive nephrosclerosis Elevated alkaline phosphatase level Cataract Fuchs' corneal dystrophy Colon cancer RLS (restless legs syndrome) Obesity (BMI 30.0-34.9) Dyslipidemia Type 2 diabetes mellitus with diabetic polyneuropathy Hypertension Neuropathy Diabetes mellitus Erectile dysfunction Surgical History History of esophagogastroduodenoscopy (EGD) Hx of left cataract extraction Hx of cornea transplant History of colonoscopy (~03/15/19) History of colon resection (~04/20/19) Family History Mother History of pancreatic cancer Father No problems noted. Brother Diabetes Maternal Grandmother Diabetes Social History Household Members: None Housing: Condominium Are you a primary date night caregiver to a significant other at home: No Do you presently have visiting nurse or other home services: No Alcohol intake: never Patient Tobacco Use Status: Never used Tobacco e-Cigarette/Vaping Use: Never Used Second Hand Smoke Exposure: No Advance Directives Date on File: 05/14/22 service: No Current occupational status: retired Cognitive needs: No Hearing needs: No Vision needs: No Office Procedures Post Void Residual Post Residual Void Post Void Residual (PVR): [id number] Void Residual by ultrasound Assessment & Plan Assessment & Plan (1) Urinary retention with incomplete bladder emptying: Code(s): R33.9 - Retention of urine, unspecified Category: Medical (2) Recurrent UTI (urinary tract infection): Code(s): N39.0 - Urinary tract infection, site not specified Category: Medical Plan Trial bethanechol Continue tamsulosin Orders: Orders AMB Post Void Residual by ultrasound Today R33.9 - Retention of urine, unspecified Medications: New bethanechol chloride 50 mg PO BID 30 days 60 tabs 2RF N39.0 - Urinary tract infection, site not specified, R33.9 - Retention of urine, unspecified Patient Instructions: Imaging studies, laboratory and physical exam results were discussed and reviewed in detail. No major barriers to patient understanding were identified. An opportunity to ask questions regarding the treatment plan was provided. All questions were answered. The patient expressed understanding and agreement with the above treatment plan. The patient is aware they should contact our office by phone for worsening of their current condition or the appearance of new urologic symptoms. Compliance is encouraged with any medications and followup testing that is ordered. It is a privilege to participate in the urologic care of your patient. If you have any questions or concerns regarding treatment for the above conditions, or other urologic issues, please do not hesitate to contact me. The office telephone contact is [phone]. This note is constructed using voice recognition software. While every effort has been made to ensure accuracy supervisor floor assembly errors may have been included. Yours sincerely, Dr Doe Moses MD, [facility] - Urology Providers of Expert, Compassionate Care for the Genitourinary System Coding Level of Care Code Est Pt Level 4 (56066) Diagnoses Urinary retention with incomplete bladder emptying R33.9 Recurrent UTI (urinary tract infection) N39.0 CPT Codes Post Residual Void - PVR CPT Code: 83368-[id number] Void Residual by ultrasound ([id number])
== END 2024-03-02 10:15 | disposition home or self-care (01) ==
PROVIDERS: PCP Nurse Practitioner Family; Visit Provider Urology
DX: R33.9 Retention of urine, unspecified (principal); N39.0 Urinary tract infection, site not specified
CPT/HCPCS: 99213

== ENCOUNTER → 2024-03-02 09:45 | Outpatient (BNVA) | payer MEDICARE, SELFPAY | PROVIDERS: PCP Nurse Practitioner Family; Visit Provider Urology | DX: R33.9 Retention of urine, unspecified (principal); N39.0 Urinary tract infection, site not specified | CPT/HCPCS: 51798; 99212 ==

== ENCOUNTER 2024-03-22 11:26 | Outpatient (AMB) | payer MEDICARE, SELFPAY ==
--- NOTE | 2024-03-22 11:29 | A.OFFVIS_ITS ---
Vital Signs 03/22/24 11:35 Height 5 ft 10 in Weight 187 lb 6.287 oz BMI 26.9 BP 132/86 Blood Pressure Location Rt brachial Position Sitting Pulse 85 Pulse Source Pulse Oximeter Intake Visit Reasons: insulin adjustment-confirmed Intake Note: Patient present today to follow up on Type 2 Diabetes Mellitus. Last Diabetic Eye exam: February 2024 Last Podiatry Visit: December 2023 Random Glucose: 138mg/dl, Today HgA1C: 8.2% 01/13/2024 Ballistic Expert Required: No Accompanied by: Self / Same As Patient Allergies No Known Allergies [No Known Allergies*] Allergy (Verified 03/22/24 11:36) Medication List - Last Reconciled 03/22/24 by Perla Lopes PA-C aspirin 162 mg (2 x 81 mg) PO DAILY 90 days atorvastatin 40 mg PO DAILY 90 days bethanechol chloride 50 mg PO BID 30 days blood sugar diagnostic As directed blood-glucose meter,continuous (FreeStyle Justina 3 [place]) As directed blood-glucose sensor (FreeStyle Justina 3 Sensor device) Apply every 14 days As directed cephalexin 500 mg PO Q12H empagliflozin (Jardiance) 25 mg PO QAM 90 days insulin degludec (Tresiba FlexTouch U-200 insulin) 40 units (0.2 mL) subcut DAILY insulin lispro (Humalog KwikPen (U-100) Insulin) subcutaneously; Inject 10 units with lunch and 12 units with dinner. lisinopril 20 mg PO DAILY metformin 1,000 mg PO BID multivitamin 1 tab PO DAILY pantoprazole 40 mg PO DAILY pioglitazone (Actos) 30 mg PO DAILY tamsulosin 0.4 mg PO BEDTIME 90 days HPI HPI insulin adjustment-confirmed: Details: Patient is a 68-year-old male with a significant past medical history of metastatic colon cancer, BPH, PAD, DAVIAN, hypertension, hypertension CKD, hyperlipidemia, peripheral neuropathy, diabetic nephropathy with microalbuminuria, insulin-dependent type 2 diabetes, 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 Endo: He is currently on metformin 1000 mg twice a day, Jardiance 25 mg daily, Actos 30 mg daily. He is on Tresiba 42 units. He was supposed to be on a Humalog sliding scale however, states that he does not look at the sliding scale and discuss himself 16 units for lunch and dinner. He did increase his Humalog at his last visit but thinks that causing him to go low. He states that he also has changed his diet and is trying to eat healthier. He also is not scanning as much as he should. He states that his freestyle Justina 3 will not be covered until the of this month. CGM: Active 17% (gets a lot of errors). Avg 133 glucose, variability 36.6 %. Very high-2%, high-18%, within target at 74%, 6% hypogylcemia. -denies any hypoglycemic symptoms. We did discuss his his complications with his diabetes including his nephropathy with the proteinuria, CKD, peripheral neuropathy. He has also had a prior CVA in 2021 Nephro: Following with Dr. Jane. CV: Blood pressure today in the office is 132/86. No chest pain, shortness of breath or palpitations. He is managed with lisinopril 20 mg. His cholesterol he states is controlled with atorvastatin. Continues on aspirin daily. Follows with vascular surgery Dr. Mendenhall. Heme/onc: Patient reports that he was scheduled for surgery on 02/03 but he had an ERCP a couple weeks ago which made a no longer a surgical candidate. Abdomen MRI with and without contrast obtained 12/24/2023 at [facility] revealed subtle hypoenhancing mass at the bifurcation of right and left hepatic ducts measuring 1.1 cm, decreased from prior MRI. Moderate intrahepatic biliary duct dilatation and intrahepatic segments 5/6/7 similar to prior scans. On 01/26/2024 patient underwent ERCP and biopsy of left and right intrahepatic bile ducts by Dr. Agudelo, pathology-left intrahepatic duct: Small fragments of ductal epithelium with reactive changes, negative for malignancy. Right intrahepatic duct biopsy: High-grade dysplasia/adenocarcinoma -He restarted chemo this past week. Fortunately, he is tolerating this very well. Denies any adverse effects. [facility] Medical History Stroke Ulnar neuropathy at elbow Sleep apnea Acute embolic stroke Xerosis cutis CKD (chronic kidney disease) stage 2, GFR 60-89 ml/min Persistent proteinuria Hypertensive nephrosclerosis Elevated alkaline phosphatase level Cataract Fuchs' corneal dystrophy Colon cancer RLS (restless legs syndrome) Obesity (BMI 30.0-34.9) Dyslipidemia Type 2 diabetes mellitus with diabetic polyneuropathy Hypertension Neuropathy Diabetes mellitus Erectile dysfunction Surgical History History of esophagogastroduodenoscopy (EGD) Hx of left cataract extraction Hx of cornea transplant History of colonoscopy (~03/15/19) History of colon resection (~04/20/19) Family History Mother History of pancreatic cancer Father No problems noted. Brother Diabetes Maternal Grandmother Diabetes Social History Household Members: None [facility] Are you a primary primary care md to a significant other at home: No Do you presently have visiting nurse or other home services: No Alcohol intake: never Patient Tobacco Use Status: Never used Tobacco e-Cigarette/Vaping Use: Never Used Second Hand Smoke Exposure: No Advance Directives Date on File: 05/14/22 service: No Current occupational status: retired Cognitive needs: No Hearing needs: No Vision needs: No Physical Exam Vital Signs: BMI result Body Mass Index 26.9 Const Orientation/consciousness: patient oriented x3 HEENT Ears: hearing grossly normal bilaterally Neck Thyroid: Thyroid normal Lymphatic: no lymphadenopathy noted Resp Auscultation: clear to auscultation bilaterally Cardio Rate: regular rate Rhythm: regular rhythm Heart sounds: S1 normal heart sound present and S2 normal heart sound present Skin General skin exam: no rashes or lesions noted Neuro General: patient oriented x3, gait normal and no focal motor deficits Extrem Other: Diminished DP pulses bilaterally. Diminished sensation to the monofilament test on the plantar aspect of bilateral feet. Sensation intact on the dorsum of the feet. Sensation intact of the lower legs. Skin intact. Results Reviewed Results Reviewed: Laboratory Tests 01/13/24 03/10/24 09:38 08:25 Sodium 142 Potassium 4.3 Chloride 109 H Carbon Dioxide 24 Anion Gap 13 BUN 15 Creatinine 0.74 Estim Creat Clear Calc 95.9 Estimated GFR > 60 Random Glucose 140 H Hgb A1c (Clinic) 8.2 H Calcium 9.2 Assessment & Plan Assessment & Plan (1) Type 2 diabetes mellitus with hyperglycemia, with long-term current use of insulin: Code(s): E11.65 - Type 2 diabetes mellitus with hyperglycemia; Z79.4 - longterm (current) use of insulin Category: Medical Plan: Given the hypoglycemic events we will reduce the mealtime insulin to twice a day dosing of 10 and 12 units. He often skips breakfast and most of his hypoglycemic events are between 6 and 10 AM. Reduced Tresiba to 40 units. Continue oral meds. Glucose tabs ordered. We discussed signs and symptoms of hyper and hypoglycemia that would require emergent medical treatment. Follow-up in 6-8 weeks. Sooner if needed. (2) Type 2 diabetes mellitus with other diabetic kidney complication: Code(s): E11.29 - Type 2 diabetes mellitus with other diabetic kidney complication Category: Medical Plan: As above. Labs prior to appointment. Patient understands and agrees with the plan. Orders: Orders Hemoglobin A1c Today E11.29 - Type 2 diabetes mellitus with other diabetic kidney complication, E11.65 - Type 2 diabetes mellitus with hyperglycemia, Z79.4 - longterm (current) use of insulin Microalbumin, Random (w Creat) Today E11.29 - Type 2 diabetes mellitus with other diabetic kidney complication, E11.65 - Type 2 diabetes mellitus with hyperglycemia, Z79.4 - longterm (current) use of insulin Medications: New insulin lispro (Humalog KwikPen (U-100) Insulin) subcutaneously; Inject 10 units with lunch and 12 units with dinner. 15 mL 3RF glucose (Dex4 Glucose) until symptoms of low blood sugar are controlled 16 grams (4 x 4 gram) PO Q15M PRN 100 tabs 0RF hypoglycemia Refilled insulin degludec (Tresiba FlexTouch U-200 insulin) 40 units (0.2 mL) subcut DAILY 9 mL 1RF Coding Level of Care Code Est Pt Level 4 (76737) Complex EM visit Add On G2211 Diagnoses Type 2 diabetes mellitus with hyperglycemia, with long-term current use of insulin E11.65; Z79.4 Type 2 diabetes mellitus with other diabetic kidney complication E11.29
[2024-03-22 11:35] VITALS: BP 132/86; PULSE 85; BMI 26.9
[2024-03-22 11:46] LABS: Glucose, Whole Blood 138 mg/dL (60-115)
== END 2024-03-22 12:02 | disposition home or self-care (01) ==
PROVIDERS: PCP Nurse Practitioner Family; Visit Provider Physician Assistant
DX: E11.65 Type 2 diabetes mellitus with hyperglycemia (principal); Z79.4 Long term (current) use of insulin; E11.29 Type 2 diabetes mellitus with other diabetic kidney complication
CPT/HCPCS: 99214; G2211

== ENCOUNTER → 2024-03-22 11:26 | Outpatient (BNVA) | payer MEDICARE, SELFPAY | PROVIDERS: PCP Nurse Practitioner Family; Visit Provider Physician Assistant | DX: E11.65 Type 2 diabetes mellitus with hyperglycemia (principal); E11.29 Type 2 diabetes mellitus with other diabetic kidney complication; Z79.4 Long term (current) use of insulin | CPT/HCPCS: 82947; 99212 ==

== ENCOUNTER 2024-03-29 11:48 | Outpatient (REF) | payer MEDICARE, SELFPAY | END 2024-03-29 11:49 | disposition home or self-care (01) | LOC: HO.LAB 11:48 | PROVIDERS: PCP Nurse Practitioner Family; Visit Provider Internal Medicine | DX: Z13.89 Encounter for screening for other disorder (principal) ==

== ENCOUNTER 2024-04-08 10:34 | Outpatient (AMB) | payer MEDICARE, SELFPAY ==
--- NOTE | 2024-04-08 10:38 | MHC.AMDMED ---
Intake Intake Visit Reasons: DM 60 min/CONFIRMED Playground Director Required: No Accompanied by: Self / Same As Patient Allergies No Known Allergies [No Known Allergies*] Allergy (Verified 03/22/24 11:36) HPI Comprehensive Diabetes Asmnt Most Recent Diabetes Results: Creatinine 0.94 mg/dL (0.5-1.4) 03/29/24 Blood Urea Nitrogen 17 mg/dL (9-16) H 03/29/24 Sodium 142 mmol/L (135-145) 03/29/24 Potassium 4.3 mmol/L (3.3-5.1) 03/29/24 Chloride 108 mmol/L (96-108) 03/29/24 Carbon Dioxide 24 mmol/L (22-29) 03/29/24 Calcium 9.2 mg/dL (8.4-10.2) 03/29/24 AST 36 U/L (5-37) 03/29/24 ALT 36 U/L (0-40) 03/29/24 Total Protein 6.8 g/dL (6.5-8.0) 03/29/24 Albumin 4.1 g/dL (3.5-5.0) 03/29/24 [facility] Medical History Stroke Ulnar neuropathy at elbow Sleep apnea Acute embolic stroke Xerosis cutis CKD (chronic kidney disease) stage 2, GFR 60-89 ml/min Persistent proteinuria Hypertensive nephrosclerosis Elevated alkaline phosphatase level Cataract Fuchs' corneal dystrophy Colon cancer RLS (restless legs syndrome) Obesity (BMI 30.0-34.9) Dyslipidemia Type 2 diabetes mellitus with diabetic polyneuropathy Hypertension Neuropathy Diabetes mellitus Erectile dysfunction Surgical History History of esophagogastroduodenoscopy (EGD) Hx of left cataract extraction Hx of cornea transplant History of colonoscopy (~03/15/19) History of colon resection (~04/20/19) Family History Mother History of pancreatic cancer Father No problems noted. Brother Diabetes Maternal Grandmother Diabetes Social History Household Members: None Housing: Condominium Are you a primary critical care nurse practitioner to a significant other at home: No Do you presently have visiting nurse or other home services: No Alcohol intake: never Patient Tobacco Use Status: Never used Tobacco e-Cigarette/Vaping Use: Never Used Second Hand Smoke Exposure: No Advance Directives Date on File: 05/14/22 service: No Current occupational status: retired Cognitive needs: No Hearing needs: No Vision needs: No Assessment & Plan Assessment & Plan (1) Type 2 diabetes mellitus with hyperglycemia, with long-term current use of insulin: Code(s): E11.65 - Type 2 diabetes mellitus with hyperglycemia; Z79.4 - adjunct faculty for medical terminology (current) use of insulin Plan: Patient visit to transition from Justina 2 to Justina 3 sensor Instructed patient sensors water proof you can shower, or swim do not submerge sensor in water for over 30 minutes Is sensor falls off cannot put back in you need to replace sensor, customer service number given to patient for sensor replacement Sensor placed on the back of R arm Patient left visit with sensor in warmup Reviewed how to interpret trend arrows Reminded patient that to check finger sticks if symptoms do not match sensor reading. Discussed lag time between finger stick and sensor data.? Instructed patient she should always keep blood glucometer for backup testing if needed Reviewed delay of CGM from fingersticks Reminded pt that if symptoms do not match sensor still needs to check fingersticks. Patient mentioned he was waking up in the morning with glucose levels in the 60s Patient is taking Lantus 40 units daily Suggested to patient he reduce Lantus to 35 units daily, after 3 days if he is still experiencing hypoglycemia reduce Lantus to 30 units daily Portions of this note were created using voice recognition software, please excuse any words or phrases that may have been misinterpreted. Patient Instructions: Patient will follow-up with childbirth educator in 2 weeks for glucose review Coding Level of Care Code Est Pt Level 1 (55378) Diagnoses Type 2 diabetes mellitus with hyperglycemia, with long-term current use of insulin E11.65; Z79.4
== END 2024-04-08 11:16 | disposition home or self-care (01) ==
PROVIDERS: PCP Nurse Practitioner Family; Visit Provider Registered Nurse Diabetes Educator
DX: E11.65 Type 2 diabetes mellitus with hyperglycemia (principal); Z79.4 Long term (current) use of insulin

== ENCOUNTER → 2024-04-08 10:34 | Outpatient (BNVA) | payer MEDICARE, SELFPAY | PROVIDERS: PCP Nurse Practitioner Family; Visit Provider Registered Nurse Diabetes Educator | DX: E11.65 Type 2 diabetes mellitus with hyperglycemia (principal); Z79.4 Long term (current) use of insulin | CPT/HCPCS: 99211 ==

== ENCOUNTER 2024-04-21 10:04 | Outpatient (AMB) | payer MEDICARE, SELFPAY ==
[2024-04-21 10:09] VITALS: BP 110/70; PULSE 77; O2SAT 97; BMI 26.5
--- NOTE | 2024-04-21 10:09 | A.OFFPC_ITS ---
Vital Signs 04/21/24 10:09 Height 5 ft 10 in Weight 185 lb BMI 26.5 BP 110/70 Blood Pressure Location Rt brachial Position Sitting Pulse 77 Pulse Source Pulse Oximeter Pulse Oximetry (%) 97 Oxygen Delivery Method Room Air Intake Visit Reasons: 4M F/U Intake Note: pt is here for 4 month follow up, A1c done in office today and it is 7.6% Mortarman Required: No Accompanied by: Self / Same As Patient Allergies No Known Allergies [No Known Allergies*] Allergy (Verified 04/21/24 10:56) Medication List - Last Reconciled 04/21/24 by REGIS MorrisseyP- aspirin 162 mg (2 x 81 mg) PO DAILY 90 days atorvastatin 40 mg PO DAILY 90 days bethanechol chloride 50 mg PO BID 30 days blood sugar diagnostic As directed blood-glucose meter,continuous (FreeStyle Justina 3 [place]) As directed blood-glucose sensor (FreeStyle Justina 3 Sensor device) Apply every 14 days As directed empagliflozin (Jardiance) 25 mg PO QAM 90 days glucose (Dex4 Glucose) 16 grams (4 x 4 gram) PO Q15M PRN insulin degludec (Tresiba FlexTouch U-200 insulin) 40 units (0.2 mL) subcut DAILY insulin lispro (Humalog KwikPen (U-100) Insulin) subcutaneously; Inject 10 units with lunch and 12 units with dinner. lisinopril 20 mg PO DAILY metformin 1,000 mg PO BID multivitamin 1 tab PO DAILY pantoprazole 40 mg PO DAILY pioglitazone (Actos) 30 mg PO DAILY tamsulosin 0.4 mg PO BEDTIME 90 days Tobacco use date assessed: 12/04/23 Fall risk assessment: No Falls in past year Last assessed Fall Risk: 04/21/24 Dental Screening Dental Screen Date: 12/04/23 HPI 4M F/U HPI Details Pt is a diabetic,on an ANNETTE and a statin. A1C in office today is 7.6. Due for microalbumin. Denies polyuria, polydipsia, does report intermittent neuropathy. Pt denies any signs and symptoms of hypoglycemia and does know how to correct it. He is following up with endo. Eye exam is up to date. Pt is following up with oncology due to colon cancer. [facility] Medical History Stroke Ulnar neuropathy at elbow Sleep apnea Acute embolic stroke Xerosis cutis CKD (chronic kidney disease) stage 2, GFR 60-89 ml/min Persistent proteinuria Hypertensive nephrosclerosis Elevated alkaline phosphatase level Cataract Fuchs' corneal dystrophy Colon cancer RLS (restless legs syndrome) Obesity (BMI 30.0-34.9) Dyslipidemia Type 2 diabetes mellitus with diabetic polyneuropathy Hypertension Neuropathy Diabetes mellitus Erectile dysfunction Surgical History History of esophagogastroduodenoscopy (EGD) Hx of left cataract extraction Hx of cornea transplant History of colonoscopy (~03/15/19) History of colon resection (~04/20/19) Family History Mother History of pancreatic cancer Father No problems noted. Brother Diabetes Maternal Grandmother Diabetes Social History Household Members: None Housing: Condominium Are you a primary resident care technician to a significant other at home: No Do you presently have visiting nurse or other home services: No Alcohol intake: never Patient Tobacco Use Status: Never used Tobacco e-Cigarette/Vaping Use: Never Used Second Hand Smoke Exposure: No Advance Directives Date on File: 05/14/22 service: No Current occupational status: retired Cognitive needs: No Hearing needs: No Vision needs: No Questionnaire PHQ-9 Over the last 2 weeks, how often have you been bothered by any of the following problems? 1. Little interest or pleasure in doing things: not at all 2. Feeling down, depressed, or hopeless: not at all 3. Trouble falling or staying asleep, or sleeping too much: not at all 4. Feeling tired or having little energy: not at all 5. Poor appetite or overeating: not at all 6. Feeling bad about yourself - or that you are a failure or have let yourself or your family down: not at all 7. Trouble concentrating on things, such as reading the newspaper or watching television: not at all 8. Moving or speaking so slowly that other people could have noticed. Or the opposite - being so fidgety or restless that you have been moving around a lot more than usual: not at all 9. Thoughts that you would be better off or of hurting yourself in some way: not at all Total score: 0 Depression Screening Interpretation: Negative Depression Screening Done: Yes 21618 - PHQ-9 Billing: Yes Source: Developed by Drs. Giorgi Glover, Deepthi Tyler, Felipe Gauthier and colleagues, with an educational charley from [employer]. Thrive Questionnaire Date Thrive assessed: 04/21/24 I am a: Patient What is your living situation today?: I have a steady place to live Within the past 12 months, did the food you bought not last and you didn't have the money to get more?: Never true Within the past 12 months, did you worry whether your food would run out before you got money to buy more?: Never true Do you have trouble paying for medicines?: No Do you have trouble getting transportation to medical appointments?: Yes Do you have trouble paying your heating and electricity bill?: No Do you have trouble taking care of your child, family member or friend?: No Do you have trouble with day-to-day activities such as bathing, preparing meals, shopping, managing finances, etc.?: No Are you currently unemployed and looking for a job?: No Are you interested in more education?: No Please select the resources that you would like help with: Transportation Currently or been in a relationship where the following occur: No concerns reported THRIVE Score: 1 AUDIT C Alcohol Use Questionnaire (AUDIT-C) 1. How often do you have a drink containing alcohol?: Never 3. How often do you have six or more drinks on one occasion?: Never Total Score: 0 Score Reviewed/Action Taken: Yes WILMER-7 AMB Questionnaire WILMER-7 Date WILMER - 7 assessed: 04/21/24 Feeling nervous, anxious, or on edge: 0 = Not at all Not being able to stop or control worryin = Not at all Worrying too much about different things: 0 = Not at all Trouble relaxin = Not at all Being so restless that it is hard to sit still: 0 = Not at all Becoming easily annoyed or irritable: 0 = Not at all Feeling afraid as if something awful might happen: 0 = Not at all Total WILMER-7 score (0-4 normal; 5-9 mild; 10-14 moderate; 15-21 severe): 0 Source: Developed by Drs. Giorgi Glover, Deepthi Tyler, Felipe Gauthier and colleagues, with an educational charley from [employer]. WILMER-7 Assessment Billing WILMER-7 Assessment Tool: WILMER-7 Assessment 11681 Review of Systems Const Reports as per HPI Physical exam (Primary Care) Vital Signs: Last Vital Signs Pulse 77 04/21/24 10:09 BP 110/70 04/21/24 10:09 Pulse Ox 97 04/21/24 10:09 Oxygen Delivery Method Room Air 04/21/24 10:09 BMI result Body Mass Index 26.5 Tobacco/Smoking Status: Tobacco use Status Tobacco use date assessed 12/04/23 04/21/24 10:10 Patient Tobacco Use Status Never used Tobacco 04/21/24 10:10 e-Cigarette/Vaping Use Never Used 04/21/24 10:10 PHQ-9: PHQ-9 Score PHQ-9: Total score 0 04/21/24 10:35 Depression Screening Interpretation: Negative Thrive Assessment: Date of Thrive Assessment Date Thrive assessed 04/21/24 04/21/24 10:10 Currently or been in a relationship where the following occur: No concerns reported Const General: cooperative Orientation/consciousness: patient oriented x3 Resp Effort & Inspection: normal respiratory effort Auscultation: clear to auscultation bilaterally Cardio Rate: regular rate Rhythm: regular rhythm Heart sounds: S1 normal heart sound present and S2 normal heart sound present Neuro General: patient oriented x3 Psych Appearance: grossly normal Mental Status: mental status grossly normal Speech and movement: Normal speech and movement present Affect: normal affect Attitude: cooperative Thought process: Normal thought process present Thought content: Normal thought content present Insight: Good insight present (Psych) Judgement: Good judgement present (Psych) Assessment and Plan Assessment & Plan (1) Diabetes mellitus: Code(s): E11.9 - Type 2 diabetes mellitus without complications Plan: ? elevated A1c due to chemo. Pt is following up with endo in the very near future Plan The patient agreed to the use of a medical case manager for this encounter. Scribed for STACEY Villanueva by Zulma Danie, medical case manager, on 04/21/2024 at 10:40 EST. Orders: Orders AMB Hemoglobin A1c Today Z13.9 - Encounter for screening, unspecified Coding Level of Care Code Est Pt Level 3 (23038) Diagnoses Diabetes mellitus E11.9 Additional Codes WILMER-7 Assessment Billing - WILMER-7 Assessment Tool: WILMER-7 Assessment 11240 ([id number])
== END 2024-04-21 10:48 | disposition home or self-care (01) ==
PROVIDERS: PCP Nurse Practitioner Family; Visit Provider Nurse Practitioner Family
DX: E11.9 Type 2 diabetes mellitus without complications (principal)
CPT/HCPCS: 83036; 99213

== ENCOUNTER 2024-04-26 12:48 | Outpatient (AMB) | payer MEDICARE, SELFPAY ==
--- NOTE | 2024-04-26 13:14 | A.OFFVIS_ITS ---
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 Required: No Accompanied by: Self / Same As Patient Allergies No Known Allergies [No Known Allergies*] Allergy (Verified 04/21/24 10:56) HPI Comprehensive Diabetes Asmnt Most Recent Diabetes Results: Hemoglobin A1c 8.2 % 02/25/20 Microalb/Creat Ratio 34.0 ug/mg cr 01/20/23 Cholesterol 139 mg/dL 01/20/23 HDL Cholesterol 47 mg/dL 01/20/23 Triglycerides 71 mg/dL 01/20/23 Creatinine 0.95 mg/dL (0.5-1.4) 04/19/24 Blood Urea Nitrogen 18 mg/dL (9-16) H 04/19/24 Sodium 142 mmol/L (135-145) 04/19/24 Potassium 3.9 mmol/L (3.3-5.1) 04/19/24 Chloride 108 mmol/L (96-108) 04/19/24 Carbon Dioxide 20 mmol/L (22-29) L 04/19/24 Calcium 9.4 mg/dL (8.4-10.2) 04/19/24 AST 27 U/L (5-37) 04/19/24 ALT 28 U/L (0-40) 04/19/24 Total Protein 6.6 g/dL (6.5-8.0) 04/19/24 Albumin 4.0 g/dL (3.5-5.0) 04/19/24 [facility] Medical History Stroke Ulnar neuropathy at elbow Sleep apnea Acute embolic stroke Xerosis cutis CKD (chronic kidney disease) stage 2, GFR 60-89 ml/min Persistent proteinuria Hypertensive nephrosclerosis Elevated alkaline phosphatase level Cataract Fuchs' corneal dystrophy Colon cancer RLS (restless legs syndrome) Obesity (BMI 30.0-34.9) Dyslipidemia Type 2 diabetes mellitus with diabetic polyneuropathy Hypertension Neuropathy Diabetes mellitus Erectile dysfunction Surgical History History of esophagogastroduodenoscopy (EGD) Hx of left cataract extraction Hx of cornea transplant History of colonoscopy (~03/15/19) History of colon resection (~04/20/19) Family History Mother History of pancreatic cancer Father No problems noted. Brother Diabetes Maternal Grandmother Diabetes Social History Household Members: None Housing: Condominium Are you a primary veterinarian laboratory animal care to a significant other at home: No Do you presently have visiting nurse or other home services: No Alcohol intake: never Patient Tobacco Use Status: Never used Tobacco e-Cigarette/Vaping Use: Never Used Second Hand Smoke Exposure: No Advance Directives Date on File: 05/14/22 service: No Current occupational status: retired Cognitive needs: No Hearing needs: No Vision needs: No Assessment & Plan Assessment & Plan (1) Type 2 diabetes mellitus with hyperglycemia, with long-term current use of insulin: Code(s): E11.65 - Type 2 diabetes mellitus with hyperglycemia; 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 0% Hyperglycemia:? 38% Time in Range:? 62% Average glucose for the last 2 weeks?170 mg/dL Patient reports his last A1c was 7.6% done at PCPs office. Last A1c in patient's chart is from December 2023, patient has upcoming visit with PA on 05/10/24 Patient reports he thinks his dose of Tresiba of 35 units, is not high. Reviewed with patient action of Tresiba, explained to patient he still is trending down overnight on 35 units of Tresiba, if we were to increase Tresiba dose it would increase his risk overnight or morning hypoglycemia. Reviewed with patient action of Humalog, patient reports he frequently misses doses of Humalog which may explain why he is having postprandial hyperglycemia. Recommended to patient he worked consistently towards injecting Humalog 15 minutes before meals. Suggested he put note on his refrigerator or close to where he prepares his meals as a reminder to take Humalog. Reviewed how to interpret trend arrows Reminded patient that to check finger sticks if symptoms do not match sensor reading. Discussed lag time between finger stick and sensor data.? Patient able to insert sensor independently at home without issue.? Portions of this note were created using voice recognition software, please excuse any words or phrases that may have been misinterpreted. Coding Level of Care Code Est Pt Level 1 (05841) Diagnoses Type 2 diabetes mellitus with hyperglycemia, with long-term current use of insulin E11.65; Z79.4
== END 2024-04-26 14:03 | disposition home or self-care (01) ==
PROVIDERS: PCP Nurse Practitioner Family; Visit Provider Registered Nurse Diabetes Educator
DX: E11.65 Type 2 diabetes mellitus with hyperglycemia (principal); Z79.4 Long term (current) use of insulin

== ENCOUNTER → 2024-04-26 12:48 | Outpatient (BNVA) | payer MEDICARE, SELFPAY | PROVIDERS: PCP Nurse Practitioner Family; Visit Provider Registered Nurse Diabetes Educator | DX: E11.65 Type 2 diabetes mellitus with hyperglycemia (principal); E11.42 Type 2 diabetes mellitus with diabetic polyneuropathy; E11.22 Type 2 diabetes mellitus with diabetic chronic kidney disease; I12.9 Hypertensive chronic kidney disease with stage 1 through stage 4 chronic kidney disease, or unspecified chronic kidney disease; N18.2 Chronic kidney disease, stage 2 (mild); Z79.4 Long term (current) use of insulin | CPT/HCPCS: 99211 ==

== ENCOUNTER 2024-05-05 07:44 | Outpatient (REF) | payer MEDICARE, SELFPAY ==
[2024-05-05 08:01] LABS: Appearance Urine Clear; Color Urine Yellow; Glucose Urine UA >=1000 mg/dL (Negative); Leukocyte Esterase Urine Negative (Negative); Nitrite Urine Negative (Negative); PH 6.5 (5.0-9.0); Specific Gravity - Urine >= 1.030 (1.005-1.025); UMIC TRIGGER UA YES; Urine Blood Negative (Negative); Urine Ketones Negative (Negative); Urine Protein Negative (Neg-Trace)
[2024-05-05 08:02] LABS: MANUAL DIFF FLAG NO
[2024-05-05 08:05] LABS: Basophils Percent Auto 0.9 % (0-2); Eosinophils Absolute Auto 0.1 X10*3/uL (0.0-0.4); Eosinophils Percent Auto 1.5 % (0-4); Hemoglobin 15.5 g/dl (14.0-18.0); Imm Gran Abs Auto 0.01 X10*3/uL (0.00-0.03); Imm Gran Pct Auto 0.3 % (0.0-0.4); Lymphocytes Absolute Auto 0.6 X10*3/uL (1.2-4.9); Lymphocytes Percent Auto 18.3 % (20-40); Mean Corpuscular HGB Conc 33.7 g/dl (31.0-36.0); Mean Corpuscular Hemoglobin 31.3 pg (27.0-33.0); Mean Corpuscular Volume 92.9 fL (80.0-98.0); Mean Platelet Volume 12.2 fL (9.4-12.4); Monocytes Absolute Auto 0.5 X10*3/uL (0.1-1.2); Monocytes Percent Auto 13.4 % (2-11); Neutrophils Absolute Auto 2.3 x10*3/uL (2.0-8.3); Neutrophils Percent Auto 65.6 % (45-73); Red Blood Count 4.95 X10*6/uL (4.60-5.80); Red Cell Distribution Width 17.6 % (11.0-16.0); White Blood Count 3.4 X10*3/uL (4.8-10.8)
[2024-05-05 08:06] LABS: Bacteria Urine None Seen (None Seen); Hyaline Casts Urine 0-2 /LPF (0-2); RBC Urine 0-2 /HPF (0-2); Squamous Epithelial Cell Urine 0-2 /HPF (0-2); WBC Urine 0-5 /HPF (0-5)
[2024-05-05 08:06] LABS: Platelet Count 47 X10*3/uL (160-400)
[2024-05-05 08:19] LABS: Estimated Average Glucose 166 mg/dL; Hemoglobin A1c % 7.4 % (<6.0)
[2024-05-05 08:21] LABS: Creatinine Urine 78.93 mg/dL; Microalbum/Creatinine Ratio Ur 34.2 ug/mg cr (<30)
[2024-05-05 08:22] LABS: Alanine Aminotransferase 49 U/L (0-40); Alkaline Phosphatase 132 U/L (39-117); Anion Gap 12 (12-20); Aspartate Amino Transferase 55 U/L (5-37); Bilirubin Total 0.7 mg/dL (0.0-1.0); Blood Urea Nitrogen 15 mg/dL (9-16); Calcium 9.4 mg/dL (8.4-10.2); Carbon Dioxide 27 mmol/L (22-29); Chloride 106 mmol/L (96-108); Estimated Glomerular Filt Rate > 60; Glucose Random 148 mg/dL (60-115); Potassium 4.7 mmol/L (3.3-5.1); Sodium 140 mmol/L (135-145); Total Protein 6.7 g/dL (6.5-8.0)
== END 2024-05-05 07:45 | disposition home or self-care (01) ==
LOC: HO.LAB 07:44
PROVIDERS: Physician Assistant; PCP Nurse Practitioner Family; Visit Provider Internal Medicine
DX: C18.9 Malignant neoplasm of colon, unspecified (principal); E11.65 Type 2 diabetes mellitus with hyperglycemia; E11.29 Type 2 diabetes mellitus with other diabetic kidney complication; Z79.4 Long term (current) use of insulin
CPT/HCPCS: 36415; 80053; 81001; 81003; 82043; 82570; 83036; 85025

== ENCOUNTER 2024-05-10 10:16 | Outpatient (AMB) | payer MEDICARE, SELFPAY ==
--- NOTE | 2024-05-10 09:12 | A.OFFVIS_ITS ---
Vital Signs 05/10/24 10:26 Height 5 ft 10 in Weight 185 lb 3.013 oz BMI 26.6 BP 120/80 Blood Pressure Location Rt brachial Position Sitting Pulse 65 Pulse Source Pulse Oximeter Intake Visit Reasons: DM/LVM Intake Note: APatient presents today for D2MT follow up visit. Last Diabetic Eye exam: 07/2023, pending cataracts surgery Last Podiatry Visit: December 2023 Random Glucose: 190mg/dl HgA1c: 7.4% 05/05/24 Shoe Cleaner Required: No Accompanied by: Self / Same As Patient Allergies No Known Allergies [No Known Allergies*] Allergy (Verified 05/10/24 10:28) Medication List - Last Reconciled 05/10/24 by Perla Lopes PA-C aspirin 162 mg (2 x 81 mg) PO DAILY 90 days atorvastatin 40 mg PO DAILY 90 days bethanechol chloride 50 mg PO BID 30 days blood sugar diagnostic As directed blood-glucose meter,continuous (FreeStyle Justina 3 [place]) As directed blood-glucose sensor (FreeStyle Justina 3 Sensor device) Apply every 14 days As directed empagliflozin (Jardiance) 25 mg PO QAM 90 days glucose (Dex4 Glucose) 16 grams (4 x 4 gram) PO Q15M PRN insulin degludec (Tresiba FlexTouch U-200 insulin) 38 units subcut DAILY insulin lispro (Humalog KwikPen (U-100) Insulin) subcutaneously; Inject 10 units with lunch and 12 units with dinner. lisinopril 20 mg PO DAILY metformin 1,000 mg PO BID multivitamin 1 tab PO DAILY pantoprazole 40 mg PO DAILY pioglitazone (Actos) 30 mg PO DAILY tamsulosin 0.4 mg PO BEDTIME 90 days HPI HPI DM/LVM: Details: Patient is a 69-year-old male with a significant past medical history of metastatic colon cancer, BPH, PAD, DAVIAN, hypertension, hypertension CKD, hyperlipidemia, peripheral neuropathy, diabetic nephropathy with microalbuminuria, insulin-dependent type 2 diabetes, 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 Endo: His last a1c was 7.4 down from 8.2 in December. He is currently on metformin 1000 mg twice a day, Jardiance 25 mg daily, Actos 30 mg daily. He is on Tresiba 35 units. He was supposed to be on a Humalog 10 and 12 units with lunch and dinner -He saw Hellen a week ago and had his tresiba lowered to 35 units and humalog changed to 10 units at lunch and 12 a dinner. CGM: Active 97%, Avg glucose 181, GMI 7.6%. Very high-14%, high-36%, within target at 50%, 0% hypogylcemia. -denies any hypoglycemic symptoms. We did discuss his his complications with his diabetes including his nephropathy with the proteinuria, CKD, peripheral neuropathy. He has also had a prior CVA in 2021 Nephro: Following with Dr. Jane. CV: Blood pressure today in the office is 120/80 No chest pain, shortness of breath or palpitations. He is managed with lisinopril 20 mg. His cholesterol he states is controlled with atorvastatin. Continues on aspirin daily. Follows with vascular surgery Dr. Mendenhall. Heme/onc: Abdomen MRI with and without contrast obtained 12/24/2023 at [place] [facility] revealed subtle hypoenhancing mass at the bifurcation of right and left hepatic ducts measuring 1.1 cm, decreased from prior MRI. Moderate i ntrahepatic biliary duct dilatation and intrahepatic segments 5/6/7 similar to prior scans. On 01/26/2024 patient underwent ERCP and biopsy of left and right intrahepatic bile ducts by Dr. Agudelo, pathology-left intrahepatic duct: Small fragments of ductal epithelium with reactive changes, negative for malignancy. Right intrahepatic duct biopsy: High-grade dysplasia/adenocarcinoma -He restarted chemo this past summer. Fortunately, he is tolerating this very well. Denies any adverse effects. -weight is stable [facility] Medical History Stroke Ulnar neuropathy at elbow Sleep apnea Acute embolic stroke Xerosis cutis CKD (chronic kidney disease) stage 2, GFR 60-89 ml/min Persistent proteinuria Hypertensive nephrosclerosis Elevated alkaline phosphatase level Cataract Fuchs' corneal dystrophy Colon cancer RLS (restless legs syndrome) Obesity (BMI 30.0-34.9) Dyslipidemia Type 2 diabetes mellitus with diabetic polyneuropathy Hypertension Neuropathy Diabetes mellitus Erectile dysfunction Surgical History History of esophagogastroduodenoscopy (EGD) Hx of left cataract extraction Hx of cornea transplant History of colonoscopy (~03/15/19) History of colon resection (~04/20/19) Family History Mother History of pancreatic cancer Father No problems noted. Brother Diabetes Maternal Grandmother Diabetes Social History Household Members: None [facility] Are you a primary primary care physician to a significant other at home: No Do you presently have visiting nurse or other home services: No Alcohol intake: never Patient Tobacco Use Status: Never used Tobacco e-Cigarette/Vaping Use: Never Used Second Hand Smoke Exposure: No Advance Directives Date on File: 05/14/22 service: No Current occupational status: retired Cognitive needs: No Hearing needs: No Vision needs: No Physical Exam Vital Signs: Last Vital Signs Pulse 65 05/10/24 10:26 BP 120/80 05/10/24 10:26 BMI result Body Mass Index 26.6 Const Orientation/consciousness: patient oriented x3 HEENT Ears: hearing grossly normal bilaterally Neck Thyroid: Thyroid normal Lymphatic: no lymphadenopathy noted Resp Auscultation: clear to auscultation bilaterally Cardio Rate: regular rate Rhythm: regular rhythm Heart sounds: S1 normal heart sound present and S2 normal heart sound present Skin General skin exam: no rashes or lesions noted Neuro General: patient oriented x3, gait normal and no focal motor deficits Results Reviewed Results Reviewed: Laboratory Tests 01/13/24 05/05/24 09:38 08:01 Sodium 140 Potassium 4.7 D Chloride 106 Carbon Dioxide 27 Anion Gap 12 BUN 15 Creatinine 0.90 Estimated GFR > 60 Random Glucose 148 H Estimat Average Glucose 166 Hgb A1c (Clinic) 8.2 H Hemoglobin A1c % 7.4 H Assessment & Plan Assessment & Plan (1) Type 2 diabetes mellitus with hyperglycemia, with long-term current use of insulin: Code(s): E11.65 - Type 2 diabetes mellitus with hyperglycemia; Z79.4 - custodial (current) use of insulin Category: Medical Plan: Will increase tresiba to 38 units. Continue treatment plan otherwise. He will let me know if he has any additional hypoglyemic events. follow up in 3 months or sooner if needed. (2) Hypertension: Code(s): I10 - Essential (primary) hypertension Category: Medical Qualifiers: Hypertension type: essential hypertension Qualified Code(s): I10 - Essential (primary) hypertension Plan: wnl today. continue current plan. (3) Dyslipidemia: Code(s): E78.5 - Hyperlipidemia, unspecified Category: Medical Plan: continue lipitor 40 mg. Orders: Orders Hemoglobin A1c Today E11.65 - Type 2 diabetes mellitus with hyperglycemia, Z79.4 - rn long term care (current) use of insulin Medications: Changed From insulin degludec (Tresiba FlexTouch U-200 insulin) 40 units (0.2 mL) subcut DAILY 9 mL 1RF To insulin degludec (Tresiba FlexTouch U-200 insulin) 38 units subcut DAILY Coding Level of Care Code Est Pt Level 4 (47938) Complex EM visit Add On G2211 Diagnoses Type 2 diabetes mellitus with hyperglycemia, with long-term current use of insulin E11.65; Z79.4 Essential hypertension I10 Hypertension type: essential hypertension Dyslipidemia E78.5
[2024-05-10 10:26] VITALS: BP 120/80; PULSE 65; BMI 26.6
[2024-05-10 10:35] LABS: Glucose, Whole Blood 190 mg/dL (60-115)
== END 2024-05-10 10:52 | disposition home or self-care (01) ==
PROVIDERS: PCP Nurse Practitioner Family; Visit Provider Physician Assistant
DX: E11.65 Type 2 diabetes mellitus with hyperglycemia (principal); Z79.4 Long term (current) use of insulin; I10 Essential (primary) hypertension; E78.5 Hyperlipidemia, unspecified
CPT/HCPCS: 99214; G2211

== ENCOUNTER → 2024-05-10 10:16 | Outpatient (BNVA) | payer MEDICARE, SELFPAY | PROVIDERS: PCP Nurse Practitioner Family; Visit Provider Physician Assistant | DX: E11.65 Type 2 diabetes mellitus with hyperglycemia (principal); Z79.4 Long term (current) use of insulin; I10 Essential (primary) hypertension; E78.5 Hyperlipidemia, unspecified | CPT/HCPCS: 82947; 99212 ==

== ENCOUNTER 2024-05-19 07:41 | Outpatient (REF) | payer MEDICARE, SELFPAY ==
[2024-05-19 08:00] LABS: MANUAL DIFF FLAG NO
[2024-05-19 08:18] LABS: Basophils Percent Auto 0.8 % (0-2); Eosinophils Absolute Auto 0.1 X10*3/uL (0.0-0.4); Eosinophils Percent Auto 1.4 % (0-4); Hemoglobin 16.2 g/dl (14.0-18.0); Imm Gran Abs Auto 0.05 X10*3/uL (0.00-0.03); Lymphocytes Absolute Auto 0.9 X10*3/uL (1.2-4.9); Lymphocytes Percent Auto 17.6 % (20-40); Mean Corpuscular HGB Conc 33.1 g/dl (31.0-36.0); Mean Corpuscular Hemoglobin 31.2 pg (27.0-33.0); Mean Corpuscular Volume 94.2 fL (80.0-98.0); Mean Platelet Volume 12.1 fL (9.4-12.4); Monocytes Absolute Auto 0.6 X10*3/uL (0.1-1.2); Monocytes Percent Auto 11.3 % (2-11); Neutrophils Absolute Auto 3.4 x10*3/uL (2.0-8.3); Neutrophils Percent Auto 67.9 % (45-73); Platelet Count 94 X10*3/uL (160-400); Red Cell Distribution Width 16.3 % (11.0-16.0); White Blood Count 5.1 X10*3/uL (4.8-10.8)
[2024-05-19 08:50] LABS: Alanine Aminotransferase 58 U/L (0-40); Alkaline Phosphatase 207 U/L (39-117); Anion Gap 16 (12-20); Aspartate Amino Transferase 46 U/L (5-37); Bilirubin Total 0.6 mg/dL (0.0-1.0); Blood Urea Nitrogen 24 mg/dL (9-16); Carbon Dioxide 25 mmol/L (22-29); Chloride 108 mmol/L (96-108); Estimated Glomerular Filt Rate > 60; Glucose Random 213 mg/dL (60-115); Potassium 5.6 mmol/L (3.3-5.1); Sodium 143 mmol/L (135-145); Total Protein 7.3 g/dL (6.5-8.0)
[2024-05-19 09:49] LABS: Appearance Urine Clear; Color Urine Yellow; Glucose Urine UA >=1000 mg/dL (Negative); Leukocyte Esterase Urine Negative (Negative); Nitrite Urine Negative (Negative); PH 5.5 (5.0-9.0); Specific Gravity - Urine >= 1.030 (1.005-1.025); UMIC TRIGGER UA YES; Urine Blood Negative (Negative); Urine Ketones Negative (Negative); Urine Protein Negative (Neg-Trace)
[2024-05-19 10:32] LABS: Bacteria Urine None Seen (None Seen); Hyaline Casts Urine 0-2 /LPF (0-2); RBC Urine 0-2 /HPF (0-2); Squamous Epithelial Cell Urine 0-2 /HPF (0-2); WBC Urine 0-5 /HPF (0-5)
== END 2024-05-19 07:42 | disposition home or self-care (01) ==
LOC: HO.LAB 07:41
PROVIDERS: PCP Nurse Practitioner Family; Visit Provider Internal Medicine
DX: C18.9 Malignant neoplasm of colon, unspecified (principal); C78.7 Secondary malignant neoplasm of liver and intrahepatic bile duct
CPT/HCPCS: 36415; 80053; 81001; 81003; 85025

== ENCOUNTER 2024-05-19 15:28 | Outpatient (AMB) | payer MEDICARE, SELFPAY ==
[2024-05-19 15:52] VITALS: BP 120/66; PULSE 70; O2SAT 97; BMI 27.0
--- NOTE | 2024-05-19 15:52 | A.OFFPC_ITS ---
Vital Signs 05/19/24 15:52 Height 5 ft 10 in Weight 188 lb BMI 27.0 BP 120/66 Blood Pressure Location Rt brachial Position Sitting Pulse 70 Pulse Source Pulse Oximeter Pulse Oximetry (%) 97 Intake Visit Reasons: pre op cataracts Intake Note: pt is here for pre op for cataracts, denies needing an ekg or blood work Allergies No Known Allergies [No Known Allergies*] Allergy (Verified 05/19/24 17:01) Medication List - Last Reconciled 05/19/24 by STACEY Morrissey aspirin 162 mg (2 x 81 mg) PO DAILY 90 days atorvastatin 40 mg PO DAILY 90 days bethanechol chloride 50 mg PO BID 30 days blood sugar diagnostic As directed blood-glucose meter,continuous (Modern BoutiqueStyle Justina 3 [place]) As directed blood-glucose sensor (FreeStyle Justina 3 Sensor device) Apply every 14 days As directed empagliflozin (Jardiance) 25 mg PO QAM 90 days glucose (Dex4 Glucose) 16 grams (4 x 4 gram) PO Q15M PRN insulin degludec (Tresiba FlexTouch U-200 insulin) 38 units subcut DAILY insulin lispro (Humalog KwikPen (U-100) Insulin) subcutaneously; Inject 10 units with lunch and 12 units with dinner. lisinopril 20 mg PO DAILY metformin 1,000 mg PO BID multivitamin 1 tab PO DAILY pantoprazole 40 mg PO DAILY pioglitazone (Actos) 30 mg PO DAILY tamsulosin 0.4 mg PO BEDTIME 90 days Tobacco use date assessed: 12/04/23 Fall risk assessment: No Falls in past year Last assessed Fall Risk: 05/19/24 Dental Screening Dental Screen Date: 12/04/23 HPI pre op cataracts HPI Details Pt is here for a pre-op evaluation. He is scheduled to undergo cataract surgery on 05/31. No labs or EKG are needed. Pt is currently on his chemotherapy pump but he will not have that for surgery. Pt is cleared for surgery from my standpoint. [facility] Medical History Stroke Ulnar neuropathy at elbow Sleep apnea Acute embolic stroke Xerosis cutis CKD (chronic kidney disease) stage 2, GFR 60-89 ml/min Persistent proteinuria Hypertensive nephrosclerosis Elevated alkaline phosphatase level Cataract Fuchs' corneal dystrophy Colon cancer RLS (restless legs syndrome) Obesity (BMI 30.0-34.9) Dyslipidemia Type 2 diabetes mellitus with diabetic polyneuropathy Hypertension Neuropathy Diabetes mellitus Erectile dysfunction Surgical History History of esophagogastroduodenoscopy (EGD) Hx of left cataract extraction Hx of cornea transplant History of colonoscopy (~03/15/19) History of colon resection (~04/20/19) Family History Mother History of pancreatic cancer Father No problems noted. Brother Diabetes Maternal Grandmother Diabetes Social History Household Members: None [facility] Are you a primary dialysis patient care technician to a significant other at home: No Do you presently have visiting nurse or other home services: No Alcohol intake: never Patient Tobacco Use Status: Never used Tobacco e-Cigarette/Vaping Use: Never Used Second Hand Smoke Exposure: No Advance Directives Date on File: 05/14/22 service: No Current occupational status: retired Cognitive needs: No Hearing needs: No Vision needs: No Questionnaire PHQ-9 Over the last 2 weeks, how often have you been bothered by any of the following problems? 1. Little interest or pleasure in doing things: not at all 2. Feeling down, depressed, or hopeless: not at all 3. Trouble falling or staying asleep, or sleeping too much: not at all 4. Feeling tired or having little energy: not at all 5. Poor appetite or overeating: not at all 6. Feeling bad about yourself - or that you are a failure or have let yourself or your family down: not at all 7. Trouble concentrating on things, such as reading the newspaper or watching television: not at all 8. Moving or speaking so slowly that other people could have noticed. Or the opposite - being so fidgety or restless that you have been moving around a lot more than usual: not at all 9. Thoughts that you would be better off or of hurting yourself in some way: not at all Total score: 0 Depression Screening Interpretation: Negative Depression Screening Done: Yes 18597 - PHQ-9 Billing: Yes Source: Developed by Drs. Giorgi Glover, Deepthi Tyler, Felipe Gauthier and colleagues, with an educational charley from [employer] retargeting. Thrive Questionnaire Date Thrive assessed: 05/19/24 I am a: Patient What is your living situation today?: I have a steady place to live Within the past 12 months, did the food you bought not last and you didn't have the money to get more?: Never true Within the past 12 months, did you worry whether your food would run out before you got money to buy more?: Never true Do you have trouble paying for medicines?: No Do you have trouble getting transportation to medical appointments?: Yes Do you have trouble paying your heating and electricity bill?: No Do you have trouble taking care of your child, family member or friend?: No Do you have trouble with day-to-day activities such as bathing, preparing meals, shopping, managing finances, etc.?: No Are you currently unemployed and looking for a job?: No Are you interested in more education?: No Please select the resources that you would like help with: Transportation Currently or been in a relationship where the following occur: No concerns reported THRIVE Score: 1 AUDIT C Alcohol Use Questionnaire (AUDIT-C) 1. How often do you have a drink containing alcohol?: Never 2. How many drinks containing alcohol do you have on a typical day when you are drinking?: 3 or 4 3. How often do you have six or more drinks on one occasion?: Never Total Score: 1 Score Reviewed/Action Taken: Yes WILMER-7 AMB Questionnaire WILMER-7 Date WILMER - 7 assessed: 05/19/24 Feeling nervous, anxious, or on edge: 0 = Not at all Not being able to stop or control worryin = Not at all Worrying too much about different things: 0 = Not at all Trouble relaxin = Not at all Being so restless that it is hard to sit still: 0 = Not at all Becoming easily annoyed or irritable: 0 = Not at all Feeling afraid as if something awful might happen: 0 = Not at all Total WILMER-7 score (0-4 normal; 5-9 mild; 10-14 moderate; 15-21 severe): 0 Source: Developed by Drs. Giorgi Glover, Deepthi Tyler, Felipe Gauthier and colleagues, with an educational charley from [employer]. WILMER-7 Assessment Billing WILMER-7 Assessment Tool: WILMER-7 Assessment 71025 Review of Systems Const Denies chills and Denies fever(s) Eyes Denies blurry vision ENT Denies vertigo, Denies dizziness and Denies sore throat Card Denies chest pain at rest, Denies chest pain with activity, Denies diaphoresis, Denies dyspnea and Denies dyspnea on exertion Resp Denies cough, Denies dyspnea, Denies dyspnea on exertion and Denies wheezing GI Denies abdominal pain, Denies melena, Denies hematochezia, Denies constipation, Denies diarrhea and Denies loose stools Denies hematuria Musc Denies numbness and Denies tingling Skin/Breast Denies lesions Neuro Denies vertigo, Denies dizziness, Denies numbness and Denies tingling Psych Denies anxiety, Denies depression, Denies homicidal ideation, Denies suicidal ideation and Denies other (substance abuse) Aller/Immun Denies wheezing Physical exam (Primary Care) Vital Signs: Last Vital Signs Pulse 70 05/19/24 15:52 BP 120/66 05/19/24 15:52 Pulse Ox 97 05/19/24 15:52 BMI result Body Mass Index 27.0 Tobacco/Smoking Status: Tobacco use Status Tobacco use date assessed 12/04/23 05/19/24 15:55 Patient Tobacco Use Status Never used Tobacco 05/19/24 15:55 e-Cigarette/Vaping Use Never Used 05/19/24 15:55 PHQ-9: PHQ-9 Score PHQ-9: Total score 0 05/19/24 16:14 Depression Screening Interpretation: Negative Thrive Assessment: Date of Thrive Assessment Date Thrive assessed 05/19/24 05/19/24 16:02 Currently or been in a relationship where the following occur: No concerns reported Const General: cooperative Nutritional Appearance: well nourished Orientation/consciousness: patient oriented x3 Neck Neck: Yes no lymphadenopathy Resp Effort & Inspection: normal respiratory effort Auscultation: clear to auscultation bilaterally Cardio Rate: regular rate Rhythm: regular rhythm Heart sounds: S1 normal heart sound present, S2 normal heart sound present and no murmurs Neuro General: patient oriented x3 Psych Appearance: grossly normal Mental Status: mental status grossly normal Speech and movement: Normal speech and movement present Affect: normal affect Attitude: cooperative Thought process: Normal thought process present Thought content: Normal thought content present Insight: Good insight present (Psych) Judgement: Good judgement present (Psych) Assessment and Plan Assessment & Plan (1) Pre-op evaluation: Code(s): Z01.818 - Encounter for other preprocedural examination Plan The patient agreed to the use of a emergency medical services coordinator for this encounter. Scribed for RAVEN Villanueva-ALEXI by Zulma Helton emergency medical services coordinator, on 05/19/2024 at 16:15 EST. Coding Level of Care Code Est Pt Prev Care >65y(15416) Diagnoses Pre-op evaluation Z01.818 Additional Codes WILMER-7 Assessment Billing - WILMER-7 Assessment Tool: WILMER-7 Assessment 03503 ([id number])
== END 2024-05-19 16:50 | disposition home or self-care (01) ==
PROVIDERS: PCP Nurse Practitioner Family; Visit Provider Nurse Practitioner Family
DX: Z01.818 Encounter for other preprocedural examination (principal)
CPT/HCPCS: 99214

== ENCOUNTER 2024-06-07 08:50 | Outpatient (REF) | payer MEDICARE, SELFPAY ==
--- NOTE | ~2024-06-07 | CT_ITS ---
EXAMINATION: CT CHEST WITHOUT CONTRAST CLINICAL INFORMATION: Colon carcinoma, rule out thoracic metastatic disease. Patient awaiting chemotherapy. COMPARISON: CT chest 03/10/2023, and 03/30/2019. PET/CT 08/26/2023. CT abdomen and pelvis performed concurrently with this study. TECHNIQUE: Multidetector volumetric CT imaging of the chest was done. Axial MIP volume rendering provided. Sagittal and coronal reformatted images were obtained. This CT examination was performed using dose optimization techniques as appropriate, variously including the following: *Automated exposure control *Adjustment of mA and/or kV according to patient size (this includes techniques or standardized protocols for targeted exams where dose is matched to indication/reason for exam; i.e. extremities or head) *Use of iterative reconstruction technique DLP: 136.4 mGy-cm FINDINGS: Right chest port in place, with tip extending to the cavoatrial junction. PULMONARY NODULES: -There are scattered calcified granulomata, benign. -3 mm nodule inferior right upper lobe, just superior to the minor fissure, (series 8, image 54), stable. -Otherwise no new or enlarging pulmonary nodules. LUNGS: -The lungs demonstrate no evidence of acute disease or consolidation, nor groundglass opacity. -There is stable focus of linear parenchymal scarring anteroinferior segment right lower lobe extending to the diaphragmatic pleura, and also involving the medial right upper lobe. -No pleural effusions or pleural masses. -Mild bronchiectasis is present throughout both lungs, most notable in the lower lobes, uncertain etiology. No endobronchial filling defects or regions of mucus plugging. No thickening. -Central airways are patent. MEDIASTINUM: -The thyroid gland is normal in appearance but incompletely imaged. -There is no abnormal mediastinal lymphadenopathy. -Aorta is nonaneurysmal with minimal atheromatous calcification. -Main pulmonary artery is normal in size. -Heart size is normal. There are aortic valvular calcifications. There are mitral annular calcifications. There is no pericardial effusion. -Esophagus demonstrates mildly patulous diameter, with mild distal wall thickening, with a small type I hiatus hernia. CORONARY ARTERY CALCIFICATION: Moderate to heavy three-vessel coronary calcifications. AXILLA/CHEST WALL: -No abnormal lymphadenopathy or mass. -Right chest port in place. -Mild bilateral gynecomastia left greater than right. UPPER ABDOMEN: Please refer to the dedicated abdomen and pelvis CT performed concurrently. OSSEOUS STRUCTURES: -There is no suspicious lytic or blastic bone lesion identified. -There are [id number] degenerative changes of the lower thoracic spine. CT/CT chest wo IV con IMPRESSION: 1. No evidence of thoracic metastatic disease or new or enlarging pulmonary nodules. 2. Lungs again demonstrate no evidence of active disease. There is mild diffuse bronchiectasis again noted. 3. Mild thickening of the distal esophagus with a small type I hiatus hernia. Findings suggest possible esophagitis. 4. Aortic valvular calcifications, which can be seen in the setting of bicuspid valve and/or aortic stenosis. Fleischner guidelines were followed. Findings were communicated to Dr. Tolbert via secure text at 10:55 AM, 07/04/2024. Electronically signed by: Oneil Ng MD 07/07/2024 10:57 AM EDT
--- NOTE | ~2024-06-07 | CT_ITS ---
EXAMINATION: CT ABDOMEN AND PELVIS WITH CONTRAST CLINICAL INFORMATION: Evaluate for worsening metastatic disease, patient with metastatic colon CA to liver/biliary ducts. COMPARISON: MRI abdomen 12/24/2023; PET/CT 08/26/2023; CT liver 3 phase 07/08/2023, and MR abdomen 05/15/2023. TECHNIQUE: Multidetector volumetric images were obtained from the superior aspect of the liver through the pubic symphysis following administration 85 mL of Omnipaque 350 intravenous contrast. Sagittal and coronal reformatted images were obtained on the technologist's workstation. Oral contrast: No This CT examination was performed using dose optimization techniques as appropriate, variously including the following: *Automated exposure control *Adjustment of mA and/or kV according to patient size (this includes techniques or standardized protocols for targeted exams where dose is matched to indication/reason for exam; i.e. extremities or head) *Use of iterative reconstruction technique DLP: 407.9 mGy-cm FINDINGS: LUNG BASES: Please refer to the dedicated chest CT. LIVER, GALLBLADDER, AND BILIARY TREE: -In segment 3, there is a new hypoattenuating mass measuring approximately 5.3 x 3.3 x 2.5 cm, with capsular expansion and contour abnormality, and central hypoattenuation, consistent with new metastasis, not previously present (series 3, image 21). -Directly abutting in segment 2/3, there is a subtle hypoattenuating peripherally minimally enhancing focus measuring 8 mm (series 3, image 23). -There are dual biliary stents in place through the common duct, one terminating in the most proximal right hepatic duct, and the second terminating in the proximal left hepatic duct. -Increasing left biliary radicle dilatation segment 3, segments 7 and 8, likely secondary to increased size of the isoattenuating mass spanning the bifurcation of the main hepatic ducts. This extremely subtle finding measures approximately 1.5 x 3.7 x 1.5 cm (series 3, image 23), increased in size from the recent MRI. -In addition, there is subtle isoattenuating focus directly abutting the most proximal posterior division right hepatic duct, likely extended directly from the adjacent mass at the bifurcation, causing secondary obstruction of segment 3, 7 and 8 biliary radicles. -The findings above would be a much better delineated on MRI if felt necessary. -There is gas within the gallbladder and nonobstructed biliary radicles, secondary to presence of biliary stents. No gas is present within the segments 3, 7, and 8 biliary radicals. This further supports worsening proximal obstruction. -There is a calcified gallstone within the gallbladder. -There is mild pericholecystic edema, nonspecific in this setting. PANCREAS: Mild to moderate atrophy again noted. Mild dilatation of the distal aspect main pancreatic duct, stable. SPLEEN: -Splenomegaly, with the spleen measuring 16.9 x 9.4 cm (axial series 3, image 31). -No focal lesion. ADRENAL GLANDS: -Mild left hyperplasia. -The right is normal. KIDNEYS AND URETERS: -Unchanged. No masses or differential enhancement. Tiny bilateral cysts. No calculi. -Ureters nondilated. BLADDER: Suspect mild introducer hypertrophy. Otherwise normal. GASTROINTESTINAL TRACT: -There has been a partial resection of the colon at the level of the distal ascending aspect, with coloileal anastomosis, unchanged appearance with no definable recurrent mass lesion. -Otherwise, stable appearance stomach, small bowel, and remaining colon and rectum with no acute findings. Very redundant sigmoid with moderate localized constipation present. ABDOMINAL WALL: -No large hernia is appreciated. -Tiny fat-containing left periumbilical hernia; tiny fat-containing umbilical hernia. -No masses or abnormal lymph nodes. -Prior laparotomy changes. LYMPH NODES: No abnormal intra or retroperitoneal lymphadenopathy is identified. VASCULAR: Aorta is moderately calcified. There is no aneurysm. -No definite venous thrombosis. PELVIC VISCERA: -The prostate is markedly enlarged, measuring diameter of approximately 5.7 cm, with the median lobe protruding into the the base of the bladder with mild irregular enhancement pattern, nonspecific. This appears stable. -Seminal vesicles are calcified. This suggests underlying diabetes. OSSEOUS STRUCTURES: -There is no definite lytic or blastic suspicious bone lesion identified. -There is a prominent Schmorl's node in the superior aspect of L3 on the left. Mild shaped thoracolumbar scoliosis. -There are degenerative spinal changes, SI joint changes, and bilateral hip joint changes. CT/CT abdomen pelvis w IV con IMPRESSION: 1. New metastasis segment 3 of the liver measuring up to 5.3 cm, centrally necrotic. 2. Worsening biliary radical dilatation involving segments 3, 7, and 8, most likely secondary to enlarging essentially isoattenuating subtle mass/metastasis in the bifurcation of the main hepatic ducts . This mass appears grossly enlarged although is difficult to directly compare due to subtle nature on CT imaging. If necessary MRI could be repeated although only if alters clinical management. 3. Otherwise, there are no additional new or acute findings from the prior CT exam. There are numerous ancillary stable findings. Refer to the body the report for further detail. Findings discussed with Dr. Tolbert via secure text at 11:10 AM, 07/07/2024. Electronically signed by: Oneil Ng MD 07/07/2024 12:00 PM EDT
[2024-06-07] MEDS: iohexoL 350 MG/ML 100 ML INFUS..BTL 85 ML IV (10:10)
== END 2024-06-07 08:51 | disposition home or self-care (01) ==
LOC: HO.CT 08:50
PROVIDERS: PCP Nurse Practitioner Family; Visit Provider Internal Medicine
DX: C18.9 Malignant neoplasm of colon, unspecified (principal); C78.7 Secondary malignant neoplasm of liver and intrahepatic bile duct
CPT/HCPCS: 71250; 74177; Q9967

== ENCOUNTER → 2024-06-07 08:52 | Outpatient (BNV) | payer MEDICARE, SELFPAY | PROVIDERS: PCP Nurse Practitioner Family; Visit Provider Radiology Diagnostic Radiology | DX: C18.9 Malignant neoplasm of colon, unspecified (principal); C78.7 Secondary malignant neoplasm of liver and intrahepatic bile duct | CPT/HCPCS: 71250; 74177 ==

== ENCOUNTER 2024-06-08 11:01 | Outpatient (REF) | payer MEDICARE, SELFPAY ==
[2024-06-08 12:15] LABS: Eosinophils Absolute Auto 0.1 X10*3/uL (0.0-0.4); Hematocrit 46.9 % (42.0-52.0); Hemoglobin 15.5 g/dl (14.0-18.0); Imm Gran Abs Auto 0.01 X10*3/uL (0.00-0.03); Imm Gran Pct Auto 0.3 % (0.0-0.4); Lymphocytes Absolute Auto 0.9 X10*3/uL (1.2-4.9); Lymphocytes Percent Auto 28.1 % (20-40); MANUAL DIFF FLAG SCAN; Mean Corpuscular Hemoglobin 31.2 pg (27.0-33.0); Mean Corpuscular Volume 94.4 fL (80.0-98.0); Mean Platelet Volume 12.2 fL (9.4-12.4); Monocytes Absolute Auto 0.7 X10*3/uL (0.1-1.2); Monocytes Percent Auto 21.9 % (2-11); Neutrophils Absolute Auto 1.4 x10*3/uL (2.0-8.3); Neutrophils Percent Auto 44.7 % (45-73); Red Blood Count 4.97 X10*6/uL (4.60-5.80); Red Cell Distribution Width 15.5 % (11.0-16.0); SCAN SMEAR FLAG 1
[2024-06-08 12:17] LABS: Platelet Count 77 X10*3/uL (160-400)
[2024-06-08 12:28] LABS: Alanine Aminotransferase 29 U/L (0-40); Albumin Level 4.1 g/dL (3.5-5.0); Alkaline Phosphatase 150 U/L (39-117); Anion Gap 11 (12-20); Aspartate Amino Transferase 34 U/L (5-37); Bilirubin Total 0.7 mg/dL (0.0-1.0); Blood Urea Nitrogen 25 mg/dL (9-16); Calcium 9.5 mg/dL (8.4-10.2); Carbon Dioxide 27 mmol/L (22-29); Chloride 110 mmol/L (96-108); Estimated Glomerular Filt Rate > 60; Glucose Random 107 mg/dL (60-115); Potassium 4.5 mmol/L (3.3-5.1); Sodium 143 mmol/L (135-145); Total Protein 7.1 g/dL (6.5-8.0)
[2024-06-08 12:40] LABS: SLIDE REVIEW VERIFIED
[2024-06-08 12:55] LABS: Appearance Urine Clear; Color Urine Yellow; Glucose Urine UA >=1000 mg/dL (Negative); Leukocyte Esterase Urine Negative (Negative); Nitrite Urine Negative (Negative); Specific Gravity - Urine >= 1.030 (1.005-1.025); UMIC TRIGGER UA YES; Urine Blood Negative (Negative); Urine Ketones Negative (Negative); Urine Protein Negative (Neg-Trace)
[2024-06-08 12:59] LABS: Bacteria Urine None Seen (None Seen); Hyaline Casts Urine 0-2 /LPF (0-2); RBC Urine 0-2 /HPF (0-2); Squamous Epithelial Cell Urine 0-2 /HPF (0-2); WBC Urine 0-5 /HPF (0-5)
== END 2024-06-08 11:02 | disposition home or self-care (01) ==
LOC: HO.ONC 11:01
PROVIDERS: PCP Nurse Practitioner Family; Visit Provider Internal Medicine Medical Oncology
DX: C18.9 Malignant neoplasm of colon, unspecified (principal)
CPT/HCPCS: 36415; 80053; 81001; 85025

== ENCOUNTER 2024-07-07 11:36 | Outpatient (REF) | payer MEDICARE, SELFPAY ==
--- NOTE | ~2024-07-07 | XR_ITS ---
EXAMINATION: XR HIP, LEFT CLINICAL INFORMATION: Hip pain with question of metastatic disease COMPARISON: CT abdomen pelvis 06/07/2024 TECHNIQUE: Single view pelvis and 2 views of the left hip. FINDINGS: There is some minimal degenerative changes seen in the hips with some lateral bilateral acetabular osteophytes. No fracture. No osseous metastases seen. Alignment is anatomic. Hip joint space is maintained. Soft tissues are unremarkable. XR/XR hip LT w PEL1V IMPRESSION: 1. No evidence of osseous metastatic disease. 2. Mild degenerative changes in the hips. Electronically signed by: Chas Jacques MD 07/08/2024 09:45 AM EDT
== END 2024-07-07 11:37 | disposition home or self-care (01) ==
LOC: HO.XRAY 11:36
PROVIDERS: Visit Provider Internal Medicine
DX: C18.9 Malignant neoplasm of colon, unspecified (principal); C78.7 Secondary malignant neoplasm of liver and intrahepatic bile duct; M25.552 Pain in left hip
CPT/HCPCS: 73502

== ENCOUNTER 2024-07-12 15:25 | Emergency (ER) | payer MEDICARE, SELFPAY ==
--- NOTE | ~2024-07-12 | US_ITS ---
EXAMINATION: US TRIPLEX LOWER EXTREMITY, RIGHT CLINICAL INFORMATION: Calf pain, rule out DVT COMPARISON: None available. TECHNIQUE: Color-flow triplex imaging with spectral analysis and compression Doppler were performed on the right lower extremity. FINDINGS: Respiratory variation, normal compression and augmented flow are noted throughout the right lower extremity. The visualized common femoral vein, superficial femoral vein, profunda femoral vein, popliteal vein and midcalf peroneal and posterior tibial venous segments show no evidence of deep venous thrombosis. Possible duplicated profunda, incidental. There is no Trujillo's cyst. US/US venous duplex LE RT IMPRESSION: No evidence of deep venous thrombosis involving the right lower extremity. Electronically signed by: Nat Conley MD 07/13/2024 03:27 PM EDT
--- NOTE | ~2024-07-12 | XR_ITS ---
EXAMINATION: XR CHEST CLINICAL INFORMATION: Hypoxia. Positive Covid. COMPARISON: January 20, 2022. TECHNIQUE: 2 views of the chest were obtained. FINDINGS: The study is limited by suboptimal inspiration. No gross focal infiltrate, effusion, or pneumothorax is seen. The cardiac silhouette appears normal in size. Mediastinum appears unremarkable. Mildly elevated right hemidiaphragm. Mild degenerative changes of the spine. The tip of a right internal jugular chest port catheter projects over the junction of the superior vena cava and right atrium. XR/XR chest 2V IMPRESSION: Findings as above. Electronically signed by: Ridge Valdivia MD 07/13/2024 04:41 PM EDT
--- NOTE | ~2024-07-12 | CT_ITS ---
EXAMINATION: CT HEAD WITHOUT CONTRAST CT CERVICAL SPINE WITHOUT CONTRAST CLINICAL INFORMATION: Fall. Head strike. COMPARISON: Brain MRI from 10/03/2022. TECHNIQUE: Contiguous axial imaging was performed from the skull base to vertex without intravenous administration of contrast. Contiguous axial imaging was performed from the upper chest through the skull base without intravenous administration of contrast. Coronal and sagittal reformats were obtained at the acquisition workstation. This CT examination was performed using dose optimization techniques as appropriate, variously including the following: *Automated exposure control. *Adjustment of mA and/or kV according to patient size (this includes techniques or standardized protocols for targeted exams where dose is matched to indication/reason for exam; i.e. extremities or head). *Use of iterative reconstruction technique. DLP: 1360 mGy-cm FINDINGS: Head: There is no evidence of acute intracranial hemorrhage or edematous territorial infarction. Barnett-white matter differentiation is preserved. Scattered and partially confluent hypoattenuation in the periventricular and deep white matter are consistent with moderate microangiopathy. Proportional prominence of the ventricles and sulcal spaces without evidence of obstructive hydrocephalus. No abnormal mass effect or midline shift. No extra-axial fluid collections. Calcific atherosclerotic disease of the intracranial internal carotid and vertebral arteries. No hyperdense vessel sign. Small subgaleal hematoma along the posterior aspect of the left parietal bone, measuring up to 0.5 cm in depth. No associated acute osseous abnormalities. Mild mucosal thickening of the paranasal sinuses. The mastoid air cells and middle ear cavities are clear. Mild degenerative arthropathy of the temporomandibular joints. Bilateral lens extractions. Cervical Spine: The atlantooccipital and atlantoaxial articulations remain well aligned. Moderate degenerative arthropathy of the atlantodental articulation. Straightening of the normal cervical lordosis. Otherwise, there is anatomic alignment of the vertebral bodies and posterior elements. No evidence of acute fracture or subluxation. The vertebral body heights are maintained. Advanced degenerative disc disease from C5-C7. Moderate degenerative disc disease from C2-C4 and C7-T2. Facet and uncovertebral joint arthropathy leads to osseous encroachment on the neural foramina from C5-C7. There is no prevertebral soft tissue swelling. The thyroid gland and remaining cervical soft tissues are within normal limits. Right-sided chest port. The lung apices demonstrate no abnormalities. CT/CT cervical spine wo IV con IMPRESSION: 1. No evidence of acute intracranial hemorrhage or edematous territorial infarction. Moderate underlying microangiopathy and generalized cerebral volume loss. 2. No evidence of acute fracture or traumatic subluxation of the cervical spine. Moderate multilevel degenerative spondyloarthropathy of the cervical spine. 3. Small left posterior scalp hematoma. No associated osseous abnormalities. Electronically signed by: Isma Enriquez DO 07/12/2024 05:31 PM EDT
[2024-07-12 15:34] VITALS: BP 150/88; BP 168/90; PULSE 93; PULSE 96; RESP 18; TEMP 37; O2SAT 95; O2SAT 98; BMI 28.0
[2024-07-12 16:18] VITALS: BP 143/80; PULSE 94; RESP 16; TEMP 36.9; O2SAT 96
--- NOTE | 2024-07-12 17:21 | ED_ITS ---
HPI - Fall General Chief Complaint: Fall Stated Complaint: Fall with headstrike, no LOC, no thinners, hx canc Time Seen by Provider: 07/12/24 17:15 Source: patient Mode of arrival: EMS Limitations: no limitations History of Present Illness ED Provider: braxton JACOBSON Narrative: Patient with right hemiparesis supposed to use cane was at home trying to walk without the cane after walking few steps lost balance and fell hit the head on the counter came with superficial abrasion of the front part of the head no loss of consciousness no other injuries Related Data Home Medications ?Medication ?Instructions ?Recorded ?Confirmed blood sugar diagnostic #10 ea 07/28/20 05/19/24 pioglitazone 30 mg tablet (Actos) 30 mg PO DAILY 08/13/23 05/19/24 multivitamin 1 tab PO DAILY 10/29/23 05/19/24 insulin degludec 200 unit/mL (3 38 unit subcut DAILY 05/10/24 05/19/24 mL) subcutaneous pen (Tresiba FlexTouch U-200 insulin) Previous Rx's ?Medication ?Instructions ?Recorded aspirin 81 mg tablet,delayed 162 mg (2 x 81 mg) PO DAILY 90 05/16/22 release days #180 tabs pantoprazole 40 mg tablet,delayed 40 mg PO DAILY #60 tabs 03/27/23 release empagliflozin 25 mg tablet 25 mg PO QAM 90 days #90 tabs 09/01/23 (Jardiance) metformin 1,000 mg tablet 1,000 mg PO BID #180 tabs 11/13/23 blood-glucose meter,continuous #1 ea 02/27/24 (FreeStyle Justina 3 Hartline) blood-glucose sensor (FreeStyle #2 ea 02/27/24 Justina 3 Sensor device) bethanechol chloride 50 mg tablet 50 mg PO BID 30 days #60 tabs 03/02/24 glucose 4 gram chewable tablet 16 g (4 x 4 gram) PO Q15M PRN 03/22/24 (Dex4 Glucose) hypoglycemia #100 tabs insulin lispro 100 unit/mL See Rx Instructions subcut 03/22/24 subcutaneous pen (Humalog KwikPen .COMPLEX #15 mL (U-100) Insulin) atorvastatin 40 mg tablet 40 mg PO DAILY 90 days #90 tabs 05/23/24 lisinopril 20 mg tablet 20 mg PO DAILY #90 tabs 05/23/24 tamsulosin 0.4 mg capsule 0.4 mg PO BEDTIME 90 days #90 caps 05/27/24 nystatin 100,000 unit/mL oral 1 ml PO TID #60 mL 07/07/24 suspension Allergies Allergy/AdvReac Type Severity Reaction Status Date / Time No Known Allergies Allergy Verified 07/12/24 15:40 [No Known Allergies*] Review of Systems Review of Systems: Yes all other systems are reviewed and are negative [facility] Past Medical History Medical History Stroke Ulnar neuropathy at elbow Sleep apnea Acute embolic stroke Xerosis cutis CKD (chronic kidney disease) stage 2, GFR 60-89 ml/min Persistent proteinuria Hypertensive nephrosclerosis Elevated alkaline phosphatase level Cataract Fuchs' corneal dystrophy Colon cancer RLS (restless legs syndrome) Obesity (BMI 30.0-34.9) Dyslipidemia Type 2 diabetes mellitus with diabetic polyneuropathy Hypertension Neuropathy Diabetes mellitus Erectile dysfunction Surgical History History of esophagogastroduodenoscopy (EGD) Hx of left cataract extraction Hx of cornea transplant History of colonoscopy (~03/15/19) History of colon resection (~04/20/19) Family History Family History Mother History of pancreatic cancer Father No problems noted. Brother Diabetes Maternal Grandmother Diabetes Social History Social History Household Members: None Housing: Condominium Are you a primary medical care evaluation specialist to a significant other at home: No Do you presently have visiting nurse or other home services: No Alcohol intake: never Patient Tobacco Use Status: Never used Tobacco e-Cigarette/Vaping Use: Never Used Second Hand Smoke Exposure: No Advance Directives: Yes Advance Directives on File: Yes Advance Directives Date on File: 05/14/22 Do you have a plan to hurt others: No Plan service: No Current occupational status: retired Cognitive needs: No Hearing needs: No Vision needs: No Physical Exam Vital Signs: Vital Signs: Last Vital Signs Temp 98.0 F 07/12/24 21:24 Pulse 86 07/12/24 21:24 Resp 16 07/12/24 21:24 BP 133/70 07/12/24 21:24 Pulse Ox 95 07/12/24 21:24 O2 Del Method Room Air 07/12/24 21:24 BMI result Body Mass Index 28.0 Appearance: Alert. Oriented X3. No acute distress. Eyes: No pallor or icterus HEENT: Pharynx normal. Oral Mucosa moist superficial abrasion right forehead Neck: Normal inspection. Neck supple. CVS: Normal heart rate and rhythm. Pulses normal. Respiratory: No respiratory distress. Equal air entry bilateral, no wheezing/rales/rhonchi Abdomen: Soft and nontender. Bowel sounds are present, no mass palpable, no CVA tenderness Skin: Skin warm and dry. Normal skin color. Normal skin turgor. Extremities: No lower extremity edema. No calf tenderness Neuro: Oriented X 3. Right lower leg weakness 3/5 No sensory deficit.No cerebellar signs , cranial nerves II-XII intact Medical Decision Making Medical Decision Making MDM Narrative: Patient is status post mechanical fall head CT and cervical spine CT is negative patient is very unsteady on his feet lives alone will get PT OT consult case management for rehab Differential Diagnosis Differential Diagnoses: The differential diagnosis associated with the presentation includes Intracranial bleed /cervical fracture Admission/Observation Consideration of admission/observation: Escalation of care including admission/observation considered Independent Interpretation I performed an independent interpretation of an: CT Scan Interpretation: Negative head CT and C-spine Radiology Impression Discussion of test interpretation with radiology: I discussed test interpretation with the radiologist Discharge Plan Discharge Clinical Impression: Fall, Minor closed head injury Patient Disposition: Still a Patient Prescriptions: No Action Jardiance 25 mg tablet 25 mg PO QAM 90 Days Qty: 90 1RF metformin 1,000 mg tablet 1,000 mg PO BID Qty: 180 1RF lisinopril 20 mg tablet 20 mg PO DAILY Qty: 90 1RF atorvastatin 40 mg tablet 40 mg PO DAILY 90 Days Qty: 90 1RF tamsulosin 0.4 mg capsule 0.4 mg PO BEDTIME 90 Days Qty: 90 1RF pioglitazone [Actos] 30 mg tablet 30 mg PO DAILY multivitamin Tablet 1 tab PO DAILY nystatin 100,000 unit/mL Suspension 1 ml PO TID Qty: 60 0RF Rx Instructions: swish and swallow pantoprazole 40 mg tablet,delayed release (DR/EC) 40 mg PO DAILY Qty: 60 2RF aspirin 81 mg tablet,delayed release (DR/EC) 162 mg PO DAILY 90 Days Qty: 180 0RF (DME) blood sugar diagnostic Strip See Rx Instructions .ROUTE TID Qty: 10 Rx Instructions: As directed bethanechol chloride 50 mg tablet 50 mg PO BID 30 Days Qty: 60 2RF (DME) FreeStyle Justina 3 Sensor Device See Rx Instructions .ROUTE .MEDSUPPLY Qty: 2 11RF Rx Instructions: Apply every 14 days As directed (DME) FreeStyle Justina 3 Hartline Misc See Rx Instructions .ROUTE .MEDSUPPLY Qty: 1 0RF Rx Instructions: As directed insulin lispro [Humalog KwikPen Insulin] 100 unit/mL insulin pen See Rx Instructions subcut .COMPLEX Qty: 15 3RF Rx Instructions: subcutaneously; Inject 10 units with lunch and 12 units with dinner. glucose [Dex4 Glucose] 4 gram tablet,chewable 16 g PO Q15M PRN (Reason: hypoglycemia) Qty: 100 0RF Rx Instructions: until symptoms of low blood sugar are controlled insulin degludec [Tresiba FlexTouch U-200] 200 unit/mL (3 mL) insulin pen 38 unit subcut DAILY Print Language: Ukrainian
[2024-07-12 18:47] VITALS: BP 126/78; PULSE 89; RESP 16; TEMP 36.6; O2SAT 96
--- NOTE | 2024-07-12 20:28 | PC.NURSE ---
Attempt to discharge patient when this RN noted pt had residual stool on inside groin/legs, pt denies diarrhea or incontinence at home and when cleaning up to get dressed noted stage 2 pressure injury to coccyx. pt redness but blanchable to right upper medial buttocks. pt states he does not get up much at home d/t weakness and when turning patient to right side pt immediately startled and stated he felt the room spinning and RN noted nystagmus to Right eye. MD made aware of situation and recommendation for patient to stay for case management/ pt needs. pt cousin at bedside and she reports he needs more help at home. pt lives alone.
[2024-07-12 21:24] VITALS: BP 133/70; PULSE 86; RESP 16; TEMP 36.7; O2SAT 95
--- NOTE | 2024-07-12 21:46 | MHC.EDTECH ---
Patient just arrived to Overflow bed #2 from main ed ,Patient was moved to a hospital bed for Comfort ,Patient was change into hospital gown ,all extra linen removed from Underneath Patient bottom ,Yellow sock given ,bed alarm on bed ,All other safety measure in Place ,Fluids and snack offer ,Patient said he was good ,Call fenton within Pt reach .
[2024-07-13] VITALS (7 sets, daily range): BP systolic 101–121; BP diastolic 59–80; PULSE 60–87; RESP 16–20; TEMP 36.3–38.1; O2SAT 91–93
--- NOTE | 2024-07-13 00:30 | PC.NURSE ---
Pt moved to private room, precautions in place. Pt denies sick contact/cough/SOB.
[2024-07-13 00:38] LABS: Basophils Percent Auto 0.3 % (0-2); Imm Gran Abs Auto 0.02 X10*3/uL (0.00-0.03); Imm Gran Pct Auto 0.6 % (0.0-0.4); Mean Corpuscular HGB Conc 34.6 g/dl (31.0-36.0); PLT CLUMP 1; Red Cell Distribution Width 14.3 % (11.0-16.0); SCAN SMEAR FLAG 1
[2024-07-13 00:39] LABS: Eosinophils Percent Auto 0.6 % (0-4); Hematocrit 50.6 % (42.0-52.0); Hemoglobin 17.5 g/dl (14.0-18.0); Lymphocytes Absolute Auto 0.5 X10*3/uL (1.2-4.9); Lymphocytes Percent Auto 13.5 % (20-40); Mean Corpuscular Volume 89.7 fL (80.0-98.0); Mean Platelet Volume 12.2 fL (9.4-12.4); Monocytes Absolute Auto 0.4 X10*3/uL (0.1-1.2); Monocytes Percent Auto 10.9 % (2-11); Neutrophils Absolute Auto 2.5 x10*3/uL (2.0-8.3); Neutrophils Percent Auto 74.1 % (45-73); Red Blood Count 5.64 X10*6/uL (4.60-5.80)
--- NOTE | 2024-07-13 00:39 | PC.NURSE ---
This check writer salesperson assumed care of this Pt at 2300. Pt A&Ox3, reports right knee/qureshi pain from fall. Pt has scabs to bilateral elbows. Pt reports he uses cane at home which does not help. Pt worried about chemo appointment Friday. Blood work collected and sent to lab.
[2024-07-13 00:41] LABS: MANUAL DIFF FLAG NO; Platelet Count 50 X10*3/uL (160-400); White Blood Count 3.4 X10*3/uL (4.8-10.8)
[2024-07-13 00:47] LABS: COVID-19 Test Positive (Negative); IDNOW Serial# 152EDE1D
[2024-07-13 00:53] LABS: Alanine Aminotransferase 27 U/L (0-40); Albumin Level 3.5 g/dL (3.5-5.0); Alkaline Phosphatase 136 U/L (39-117); Anion Gap 15 (12-20); Aspartate Amino Transferase 48 U/L (5-37); Blood Urea Nitrogen 18 mg/dL (9-16); Calcium 8.6 mg/dL (8.4-10.2); Carbon Dioxide 22 mmol/L (22-29); Chloride 102 mmol/L (96-108); Creatinine Clr Calc Pharmacy 90.3; Estimated Glomerular Filt Rate > 60; Glucose Random 148 mg/dL (60-115); Potassium 4.2 mmol/L (3.3-5.1); Sodium 135 mmol/L (135-145); Total Protein 6.4 g/dL (6.5-8.0)
--- NOTE | 2024-07-13 00:53 | PC.NURSE ---
Med rec done, pt able to verbalize home meds. Pt reports taking 14 units of Humlog insuin for lunch and 14 units for dinner.
[2024-07-13] MEDS: Acetaminophen 325 MG TABLET 975 MG PO ×2 (02:35→09:40)
--- NOTE | 2024-07-13 06:54 | PHA.MEDREC ---
Addendum entered by Zhane Braun [facility] 07/13/24 06:56: RN asked patient about bethanechol but patient could not confirm nor deny if they are on it. left unconfirmed. Original Note: Pharmacy Consult ? Medication Reconciliation Pharmacy has reviewed the medication reconciliation. RN did med rec overnight, medications match claims. Called RN to ask about humalog, rn confirmed patient takes 14 units at lunch and 14 units at dinner. Entered the humalog for RN as RN accidentally removed it.
[2024-07-13 07:31] LABS: Glucose, Whole Blood 88 mg/dL (60-115)
--- NOTE | 2024-07-13 07:35 | PC.NURSE ---
assumed care of patient at 0700, patient alerted this RN that he self caths at home due to prostate enlargement. patient states he has not voided since before her arrived to ED yesterday at 1500. patient bladder scanned showing over 950 in bladder. ED provider notified, straight cath performed, patient tolerated well.
--- NOTE | 2024-07-13 08:00 | PC.NURSE ---
patient straight cath urine output 1000ml
[2024-07-13] MEDS: Insulin Glargine,Hum.rec.anlog 100 UNIT/ML 10 ML VIAL 24 UNIT SUBCUT (09:39)
[2024-07-13] MEDS: metFORMIN HCl 1,000 MG TABLET 1000 MG PO ×2 (09:40→21:20)
[2024-07-13] MEDS: Aspirin Enteric Coated 81 MG TABLET.DR 162 MG PO (09:40)
[2024-07-13] MEDS: lisinopriL 20 MG TABLET PO (09:40)
[2024-07-13] MEDS: Atorvastatin Calcium 40 MG TABLET PO (09:40)
[2024-07-13] MEDS: Multivitamin TABLET 1 TAB PO (09:40)
--- NOTE | 2024-07-13 09:49 | PC.NURSE ---
patient noted to be febrile, ED provider notified, given po tylenol for fever
[2024-07-13 10:02] LABS: Appearance Urine Cloudy; Color Urine Dark Yellow; Glucose Urine UA >=1000 mg/dL (Negative); Leukocyte Esterase Urine Negative (Negative); Nitrite Urine Negative (Negative); PH 5.5 (5.0-9.0); Specific Gravity - Urine 1.025 (1.005-1.025); UMIC TRIGGER UACC YES; Urine Blood Large (3+) (Negative); Urine Ketones Trace mg/dL (Negative); Urine Protein 100 (2+) mg/dL (Neg-Trace)
[2024-07-13 10:17] LABS: Bacteria Urine None Seen (None Seen); Hyaline Casts Urine 0-2 /LPF (0-2); RBC Urine >20 /HPF (0-2); Squamous Epithelial Cell Urine 0-2 /HPF (0-2); UACC Culture Trigger YES
--- NOTE | 2024-07-13 11:03 | PC.NURSE ---
patient noted to now be afebrile after tylenol. patient is resting quietly in bed, respirations equal and unlabored.
[2024-07-13 11:19] LABS: Glucose, Whole Blood 202 mg/dL (60-115)
[2024-07-13] MEDS: Empagliflozin 25 MG TABLET PO (11:33)
[2024-07-13] MEDS: Pioglitazone HCL 30 MG TABLET PO (11:33)
--- NOTE | 2024-07-13 14:15 | MHC.CM.ED ---
Received case management consult overnight. Patient came to the ER due to a fall. Work up indicated patient was positive for Covid. Physical therapy eval completed. Short term rehab is recommended. Met with patient in regards to discharge planning. Patient reports he returning from [place] in [place] on 07/05. Patient has chemo scheduled for 07/14. Per Lashawn Bleach Boiler Puller, this appointment will be rescheduled d/t Covid. Patient aware and agreeable. Patient agreeable to STR and understands placement may be difficult due to Covid. Patient has been to [facility] in the past and doesn't want to return. Patient agreeable to referral being broadcasted at this time. Referral sent to all facilities within 15 miles contracted with patient's insurance. Continue to monitor for d/c needs.
--- NOTE | 2024-07-13 14:35 | PC.NURSE ---
melo cath placed, 16 fr. patient had 600 ml urine output
[2024-07-13 16:18] LABS: Glucose, Whole Blood 120 mg/dL (60-115)
--- NOTE | 2024-07-13 16:20 | MHC.CM.ED ---
[facility] able to offer a bed. Patient accepts. [facility] is in the process of obtaining insurance auth. Continue to monitor for d/c needs.
[2024-07-13 20:59] LABS: Glucose, Whole Blood 143 mg/dL (60-115)
[2024-07-13] MEDS: Pramipexole Di-HCL 0.25 MG TABLET 0.5 MG PO (21:20)
[2024-07-13] MEDS: Tamsulosin HCL 0.4 MG CAPSULE PO (22:39)
--- NOTE | 2024-07-14 00:14 | PC.NURSE ---
Late entry- stage 2 scral pressure wound noted. Foam dressing applied. PT repositioned. Sultana emptied -750ml tea colored urine drained.
[2024-07-14 05:24] VITALS: BP 107/63; PULSE 81; RESP 16; TEMP 36.1; O2SAT 95
[2024-07-14 07:28] LABS: Glucose, Whole Blood 73 mg/dL (60-115)
[2024-07-14] MEDS: metFORMIN HCl 1,000 MG TABLET 1000 MG PO (08:01)
[2024-07-14] MEDS: Multivitamin TABLET 1 TAB PO (08:02)
[2024-07-14] MEDS: Atorvastatin Calcium 40 MG TABLET PO (08:02)
[2024-07-14] MEDS: Insulin Glargine,Hum.rec.anlog 100 UNIT/ML 10 ML VIAL 24 UNIT SUBCUT (08:02)
[2024-07-14] MEDS: Aspirin Enteric Coated 81 MG TABLET.DR 162 MG PO (08:02)
[2024-07-14] MEDS: Pioglitazone HCL 30 MG TABLET PO (08:02)
[2024-07-14] MEDS: Empagliflozin 25 MG TABLET PO (08:02)
[2024-07-14] MEDS: lisinopriL 20 MG TABLET PO (08:02)
[2024-07-14] MEDS: Bethanechol Chloride 25 MG TABLET 50 MG PO (08:40)
--- NOTE | 2024-07-14 09:47 | MHC.CM.ED ---
Patient remains in ER overflow. Insurance auth has been obtained by [facility]. Patient can leave at 1pm. [facility] ARMANDO booked. Med nec with chart. Patient, Xiomara BOLANOS and Caitlin DESAI aware. Continue to monitor for d/c needs.
--- NOTE | 2024-07-14 09:51 | PC.NURSE ---
Pt fed himself all of breakfast. resting comfortably, plan of care updated by CM.
[2024-07-14 11:33] LABS: Glucose, Whole Blood 183 mg/dL (60-115)
[2024-07-14 12:57] VITALS: BP 109/56; PULSE 81; RESP 18; TEMP 36.4; O2SAT 94
[2024-07-14 13:18] VITALS: BP 109/56; PULSE 81; RESP 18; TEMP 36.4; O2SAT 94
== END 2024-07-14 13:19 ==
PROVIDERS: Emergency Provider Internal Medicine; PCP Nurse Practitioner Family
DX: S09.8XXA Other specified injuries of head, initial encounter (principal); W01.0XXA Fall on same level from slipping, tripping and stumbling without subsequent striking against object, initial encounter; M79.661 Pain in right lower leg; R33.9 Retention of urine, unspecified; E11.9 Type 2 diabetes mellitus without complications; I10 Essential (primary) hypertension; E78.5 Hyperlipidemia, unspecified; Z79.82 Long term (current) use of aspirin; Z79.899 Other long term (current) drug therapy; Z79.4 Long term (current) use of insulin; Z79.84 Long term (current) use of oral hypoglycemic drugs; Z79.02 Long term (current) use of antithrombotics/antiplatelets; Y93.89 Activity, other specified; Y92.9 Unspecified place or not applicable; Y99.9 Unspecified external cause status
CPT/HCPCS: 51701; 51702; 70450; 71046; 72125; 80053; 81001; 81003; 82947; 83735; 85025; 87086; 87635; 93971; 97162; 99285

== ENCOUNTER 2024-08-04 11:07 | Outpatient (REF) | payer MEDICARE, SELFPAY ==
--- NOTE | ~2024-08-04 | XR_ITS ---
EXAMINATION: XR HIP, RIGHT XR FEMUR, RIGHT CLINICAL INFORMATION: Movement disorder. COMPARISON: Most recent pelvic radiograph dated 07/07/2024. TECHNIQUE: AP view of the pelvis as well as AP and crosstable lateral views of the right hip. AP and lateral views of the right femur. FINDINGS: Displaced, oblique fracture through the right femoral neck with superior displacement of the distal fracture fragment and cortical step-off measuring up to 1.5 cm in craniocaudal dimension. Findings are new when compared to the prior radiographs. No dislocation. Moderate bilateral hip osteoarthritis. No concerning lytic or blastic osseous lesion. No evidence of femoral head avascular necrosis. Moderate stool burden within the pelvis. No distal right femoral fracture. No concerning lytic or blastic osseous lesion. No abnormal soft tissue calcification. Atherosclerotic calcifications. XR/XR hip RT w PEL1V IMPRESSION: Displaced, oblique fracture through the right femoral neck with superior displacement of the distal fracture fragment. Findings are new when compared to the prior radiographs. Electronically signed by: Cuauhtemoc Smith MD 08/04/2024 02:37 PM [facility]
--- NOTE | ~2024-08-04 | XR_ITS ---
EXAMINATION: XR HIP, RIGHT XR FEMUR, RIGHT CLINICAL INFORMATION: Movement disorder. COMPARISON: Most recent pelvic radiograph dated 07/07/2024. TECHNIQUE: AP view of the pelvis as well as AP and crosstable lateral views of the right hip. AP and lateral views of the right femur. FINDINGS: Displaced, oblique fracture through the right femoral neck with superior displacement of the distal fracture fragment and cortical step-off measuring up to 1.5 cm in craniocaudal dimension. Findings are new when compared to the prior radiographs. No dislocation. Moderate bilateral hip osteoarthritis. No concerning lytic or blastic osseous lesion. No evidence of femoral head avascular necrosis. Moderate stool burden within the pelvis. No distal right femoral fracture. No concerning lytic or blastic osseous lesion. No abnormal soft tissue calcification. Atherosclerotic calcifications. XR/XR femur RT 2V IMPRESSION: Displaced, oblique fracture through the right femoral neck with superior displacement of the distal fracture fragment. Findings are new when compared to the prior radiographs. Electronically signed by: Cuauhtemoc Smith MD 08/04/2024 02:37 PM [facility]
[2024-08-04 11:56] LABS: MANUAL DIFF FLAG NO
[2024-08-04 12:06] LABS: Basophils Percent Auto 0.8 % (0-2); Eosinophils Absolute Auto 0.1 X10*3/uL (0.0-0.4); Eosinophils Percent Auto 1.3 % (0-4); Hematocrit 48.4 % (42.0-52.0); Hemoglobin 16.3 g/dl (14.0-18.0); Imm Gran Abs Auto 0.02 X10*3/uL (0.00-0.03); Imm Gran Pct Auto 0.4 % (0.0-0.4); Lymphocytes Absolute Auto 0.9 X10*3/uL (1.2-4.9); Lymphocytes Percent Auto 16.3 % (20-40); Mean Corpuscular HGB Conc 33.7 g/dl (31.0-36.0); Mean Corpuscular Hemoglobin 30.9 pg (27.0-33.0); Mean Corpuscular Volume 91.7 fL (80.0-98.0); Mean Platelet Volume 11.1 fL (9.4-12.4); Monocytes Absolute Auto 0.6 X10*3/uL (0.1-1.2); Monocytes Percent Auto 11.7 % (2-11); Neutrophils Absolute Auto 3.6 x10*3/uL (2.0-8.3); Neutrophils Percent Auto 69.5 % (45-73); Platelet Count 145 X10*3/uL (160-400); Red Blood Count 5.28 X10*6/uL (4.60-5.80); Red Cell Distribution Width 15.2 % (11.0-16.0); White Blood Count 5.2 X10*3/uL (4.8-10.8)
[2024-08-04 12:16] LABS: Alanine Aminotransferase 23 U/L (0-40); Albumin Level 3.6 g/dL (3.5-5.0); Alkaline Phosphatase 164 U/L (39-117); Anion Gap 14 (12-20); Aspartate Amino Transferase 35 U/L (5-37); Bilirubin Total 0.6 mg/dL (0.0-1.0); Blood Urea Nitrogen 22 mg/dL (9-16); Calcium 9.4 mg/dL (8.4-10.2); Carbon Dioxide 22 mmol/L (22-29); Chloride 105 mmol/L (96-108); Estimated Glomerular Filt Rate > 60; Glucose Random 121 mg/dL (60-115); Potassium 4.4 mmol/L (3.3-5.1); Sodium 137 mmol/L (135-145); Total Protein 6.9 g/dL (6.5-8.0)
== END 2024-08-04 11:08 | disposition home or self-care (01) ==
LOC: HO.LAB 11:07
PROVIDERS: Absent Provider Psychiatry & Neurology Neurology; PCP Nurse Practitioner Family; Visit Provider Internal Medicine
DX: C18.9 Malignant neoplasm of colon, unspecified (principal); C78.7 Secondary malignant neoplasm of liver and intrahepatic bile duct; G25.9 Extrapyramidal and movement disorder, unspecified
CPT/HCPCS: 36415; 73502; 73552; 80053; 85025

== ENCOUNTER 2024-08-04 14:44 | Inpatient (IN) | payer MEDICARE, SELFPAY ==
--- NOTE | ~2024-08-04 | XR_ITS ---
EXAMINATION: XR PELVIS CLINICAL INFORMATION: s/p RT hip hemiarthroplasty COMPARISON: 08/04/2024 TECHNIQUE: AP view of the pelvis. FINDINGS: Prosthetic components of the right total hip hemiarthroplasty are appropriately aligned. No periprosthetic fracture. Gas from recent surgery is present in the surrounding soft tissues. XR/XR pelvis 1-2V IMPRESSION: Status post right total hip hemiarthroplasty. No evidence of immediate hardware failure. Electronically signed by: Pasquale Vazquez MD 08/09/2024 08:04 PM [facility]
--- NOTE | ~2024-08-04 | XR_ITS ---
EXAMINATION: XR CHEST CLINICAL INFORMATION: pre-op clearance COMPARISON: July 13, 2024. TECHNIQUE: Portable AP view of the chest was obtained. FINDINGS: The study is limited by portable technique and suboptimal inspiration. There is no acute radiographic finding. No acute infiltrate, effusion, or pneumothorax is seen. The heart appears normal in size. Aorta may be mildly uncoiled, suggesting hypertension. Mild degenerative changes of the spine. The tip of a right internal jugular chest port catheter projects over the junction of the superior vena cava and right atrium. XR/XR chest 1V IMPRESSION: Findings as above. Electronically signed by: Ridge Valdivia MD 08/04/2024 03:42 PM [facility]
--- NOTE | 2024-08-04 14:46 | ED_ITS ---
HPI - General Adult General Chief complaint: Extremity Problem Stated complaint: From xray Time Seen by Provider: 08/04/24 14:53 Source: patient Mode of arrival: wheelchair Limitations: no limitations History of Present Illness ED Provider: Caitlin Andrade PA-C HPI narrative: Patient is a 69 year old assigned male at with a history of stroke with right sided deficit, CKD stage 2, cataracts, stage 4 prostate cancer on chemo following with Dr. Tolbert, DM, and HTN presenting to the emergency department today with a right hip fracture. Patient states that he fell 3 weeks ago, was evaluated here and sent to a short term rehab. Patient states that he has continued to participate in PT at the short term rehab but the right hip pain is not improving. Patient states that he got an outpatient x-ray today that showed an acute fracture. Patient states that he would like to have the hip repaired as he is normally mobile with a cane at baseline. Patient denies any dizziness, lightheadedness, abdominal pain, nausea, vomiting, fever, chills, blurry vision, double vision, loss of vision, chest pain, difficulty breathing, shortness of breath, back pain, night sweats, pain with urination, increased urinary frequency, increased urinary urgency, blood in his urine or stool, syncope or a near syncopal episode, bowel incontinence, bladder incontinence, or any other complaints at this time. Location: right (hip) Relieving factors: immobilization Exacerbating factors: movement Associated symptoms: denies other symptoms Related Data Home Medications ?Medication ?Instructions ?Recorded ?Confirmed blood sugar diagnostic #10 ea 07/28/20 05/19/24 pioglitazone 30 mg tablet (Actos) 30 mg PO DAILY 08/13/23 07/12/24 multivitamin 1 tab PO DAILY 10/29/23 07/12/24 empagliflozin 25 mg tablet 25 mg PO DAILY 07/12/24 07/12/24 (Jardiance) insulin degludec 100 unit/mL (3 35 unit subcut DAILY 07/12/24 07/12/24 mL) subcutaneous pen (Tresiba FlexTouch U-100 insulin) lisinopril 20 mg tablet 20 mg PO DAILY 07/12/24 07/12/24 metformin 1,000 mg tablet 1,000 mg PO BID 07/12/24 07/12/24 pramipexole 0.5 mg tablet 0.5 mg PO BEDTIME 07/12/24 07/12/24 insulin lispro 100 unit/mL 14 unit subcut DAILY@1200 07/13/24 07/13/24 subcutaneous pen (Humalog KwikPen (U-100) Insulin) insulin lispro 100 unit/mL 14 unit subcut DAILY@1730 07/13/24 07/13/24 subcutaneous pen (Humalog KwikPen (U-100) Insulin) tamsulosin 0.4 mg capsule 0.4 mg PO BEDTIME 07/13/24 07/13/24 Previous Rx's ?Medication ?Instructions ?Recorded aspirin 81 mg tablet,delayed 162 mg (2 x 81 mg) PO DAILY 90 05/16/22 release days #180 tabs blood-glucose meter,continuous #1 ea 02/27/24 (FreeStyle Justina 3 [place]) blood-glucose sensor (FreeStyle #2 ea 02/27/24 Justina 3 Sensor device) atorvastatin 40 mg tablet 40 mg PO DAILY 90 days #90 tabs 05/23/24 cephalexin 500 mg capsule 500 mg PO Q12H #14 caps 07/26/24 oxycodone 5 mg capsule 5 mg PO Q8H PRN Knee pain #30 caps 07/26/24 bethanechol chloride 50 mg tablet 50 mg PO BID #60 tabs 08/02/24 Allergies Allergy/AdvReac Type Severity Reaction Status Date / Time No Known Allergies Allergy Verified 08/04/24 14:51 [No Known Allergies*] Review of Systems 2 Constitutional: Constitutional: Reports no additional constitutional complaints, Denies chills, Denies fever(s) and Denies night sweats Eyes: Eyes: Reports no additional eye complaints, Denies blurry vision, Denies change in vision, Denies diplopia, Denies eye discharge, Denies loss of vision and Denies eye pain ENT: Denies dizziness Cardiovascular: Cardiovascular: Reports no additional cardiovascular complaints, Denies chest pain, Denies lightheadedness, Denies Loss of Consciousness and Denies dyspnea Respiratory: Respiratory: Reports no additional respiratory complaints and Denies dyspnea Gastrointestinal: Gastrointestinal: Reports no additional gastrointestinal complaints, Denies abdominal pain, Denies melena, Denies hematochezia, Denies change in bowel habits and Denies change in stool character Genitourinary: Genitourinary: Reports no additional male genitourinary complaints, Denies hematuria, Denies oliguria, Denies difficulty urinating, Denies dysuria, Denies urinary frequency, Denies urinary hesitancy, Denies urinary incontinence and Denies urinary urgency Musculoskeletal: Musculoskeletal: Reports no additional musculoskeletal complaints, Denies numbness and Denies tingling Comments: right hip pain Neurologic: Denies dizziness, Denies loss of vision, Denies numbness and Denies tingling Psychiatric: Psychiatric: Reports no additional psychiatric complaints Endocrine: Endocrine: Reports no additional endocrine complaints Hematologic/Lymphatic: Hematologic/Lymphatic: Reports no additional hematologic/lymphatic complaints Allergic/Immunologic: Allergic/Immunologic: Reports no additional allergic/immunologic complaints PMFSH Past Medical History Attestation statement: The following information was validated with the patient. Source: old records reviewed and nursing notes reviewed Medical History Stroke Ulnar neuropathy at elbow Sleep apnea Acute embolic stroke Xerosis cutis CKD (chronic kidney disease) stage 2, GFR 60-89 ml/min Persistent proteinuria Hypertensive nephrosclerosis Elevated alkaline phosphatase level Cataract Fuchs' corneal dystrophy Colon cancer RLS (restless legs syndrome) Obesity (BMI 30.0-34.9) Dyslipidemia Type 2 diabetes mellitus with diabetic polyneuropathy Hypertension Neuropathy Diabetes mellitus Erectile dysfunction Surgical History History of esophagogastroduodenoscopy (EGD) Hx of left cataract extraction Hx of cornea transplant History of colonoscopy (~03/15/19) History of colon resection (~04/20/19) Family History Family History Mother History of pancreatic cancer Father No problems noted. Brother Diabetes Maternal Grandmother Diabetes Social History Social History Household Members: None Housing: Condominium Are you a primary career guidance counselor to a significant other at home: No Do you presently have visiting nurse or other home services: No Alcohol intake: never Patient Tobacco Use Status: Never used Tobacco e-Cigarette/Vaping Use: Never Used Second Hand Smoke Exposure: No Advance Directives: Yes Advance Directives on File: Yes Advance Directives Date on File: 08/30/22 service: No Current occupational status: retired Cognitive needs: No Hearing needs: No Vision needs: No Physical Exam ED Vital Signs: Vital Signs - 24 hr 08/04/24 14:49 Temperature 98.3 F Pulse Rate 89 Respiratory Rate 20 Blood Pressure 104/67 Pulse Oximetry 96 Oxygen Delivery Method Room Air BMI result Body Mass Index 23.1 Const General: cooperative, no acute distress, alert and awake Nutritional Appearance: well nourished Orientation/consciousness: patient oriented x3 Limitations: no limitations HENMT Head: Yes normal to inspection and Yes atraumatic Ears: hearing grossly normal bilaterally and external ears normal General nose exam: Normal external nose present, no nasal discharge noted and no epistaxis Face and sinus: Yes normal facial exam, No abrasion and No laceration Mouth: Normal oral and palatal mucosa present, no drooling and no muffled voice Eyes General: appearance normal, both eyes and all related structures Periorbital: periorbital findings normal Eyelids: Yes eyelids normal Conjunctivae: conjunctivae normal Pupils: Equal, round and reactive pupils present EOM: EOMs intact bilaterally Neck Neck: Yes normal visual inspection, Yes full ROM and Yes no lymphadenopathy Chest Chest palpation & inspection: normal inspection of the chest Resp Effort & Inspection: normal respiratory effort and able to speak in complete sentences GI Inspection: Yes normal to inspection Back/Spine/Pelvis Other: pain with palpation of the right hip, pain with right hip ROM Neuro General: patient oriented x3 and moves all extremities Cranial nerves: Yes Equal, round and reactive pupils present Cognition (Neuro): normal cognition Extrem Other: pain with right hip ROM and palpation General: Yes normal to inspection and Yes capillary refill normal Psych Appearance: grossly normal Mental Status: mental status grossly normal Affect: normal affect Attitude: cooperative Thought process: Normal thought process present Thought content: Normal thought content present Insight: Good insight present (Psych) Medications Administered Discontinued Medications Generic Name Dose Route Start Last Admin Trade Name Freq PRN Reason Stop Dose Admin Hydromorphone HCl 1 mg 08/04/24 15:10 08/04/24 15:44 Hydromorphone Hcl 1 Mg/Ml Syringe IVPUSH 08/04/24 15:11 1 mg ONCE ONE Administration Protocol Ondansetron HCl 4 mg 08/04/24 15:11 08/04/24 15:42 Ondansetron Hcl 4 Mg/2 Ml Vial IVPUSH 08/04/24 15:12 4 mg ONCE ONE Administration Medical Decision Making Medical Decision Making [facility] Narrative: Patient is a 69 year old assigned male at with a history of stroke with right sided deficit, CKD stage 2, cataracts, stage 4 prostate cancer on chemo following with Dr. Tolbert, DM, and HTN presenting to the emergency department today with a right hip fracture. Patient's physical exam was as noted in the physical exam portion of this note. Patient's blood work was unremarkable. Patient's EKG was unremarkable. Patient's right hip and femur x-ray showed a displaced, oblique, fracture through the right femoral neck with superior displacement of the distal fracture fragment. Patient's chest x-ray was unremarkable. I spoke to the orthopedic team who recommended medical admission and NPO status after midnight. I spoke to the hospitalist team who agreed to admission. I explained my physical exam findings as well as all test results to the patient. I answered all questions asked by the patient. Patient verbalized agreement and understanding with this treatment plan and admission. Differential Diagnosis Differential Diagnoses: The differential diagnosis associated with the presentation includes Right femoral neck fracture Hip fracture Admission/Observation Consideration of admission/observation: Escalation of care including admission/observation considered Patient admitted. Consult Healthcare Provider Management of the patient was discussed with: Hospitalist (agreed to admission as noted in the MDM Rationale portion of this note.) and Electronic Musical Instrument Repairer (spoke to the orthopedic team as noted in the MDM Rationale portion of this note.) Lab Data [facility] Lab Attestation statement: I reviewed the patient's lab results. My interpretation of these results are in the MDM Rationale portion of this note. 08/04/24 15:39 08/04/24 15:39 Independent Interpretation I performed an independent interpretation of an: EKG and Plain X-Ray Interpretation: My interpretation is in agreement with the radiologist's impression of these imaging studies. L EXAMINATION: XR HIP, RIGHT XR FEMUR, RIGHT CLINICAL INFORMATION: Movement disorder. COMPARISON: Most recent pelvic radiograph dated 07/07/2024. TECHNIQUE: AP view of the pelvis as well as AP and crosstable lateral views of the right hip. AP and lateral views of the right femur. FINDINGS: Displaced, oblique fracture through the right femoral neck with superior displacement of the distal fracture fragment and cortical step-off measuring up to 1.5 cm in craniocaudal dimension. Findings are new when compared to the prior radiographs. No dislocation. Moderate bilateral hip osteoarthritis. No concerning lytic or blastic osseous lesion. No evidence of femoral head avascular necrosis. Moderate stool burden within the pelvis. No distal right femoral fracture. No concerning lytic or blastic osseous lesion. No abnormal soft tissue calcification. Atherosclerotic calcifications. XR/XR femur RT 2V IMPRESSION: Displaced, oblique fracture through the right femoral neck with superior displacement of the distal fracture fragment. Findings are new when compared to the prior radiographs. Electronically signed by: Cuauhtemoc Smith MD 08/04/2024 02:37 PM EST RP Dictated By: Cuauhtemoc Smith MD Signed By: Electronically signed by Cuauhtemoc Smith MD 08/04/24 1437 EXAMINATION: XR CHEST CLINICAL INFORMATION: pre-op clearance COMPARISON: July 13, 2024. TECHNIQUE: Portable AP view of the chest was obtained. FINDINGS: The study is limited by portable technique and suboptimal inspiration. There is no acute radiographic finding. No acute infiltrate, effusion, or pneumothorax is seen. The heart appears normal in size. Aorta may be mildly uncoiled, suggesting hypertension. Mild degenerative changes of the spine. The tip of a right internal jugular chest port catheter projects over the junction of the superior vena cava and right atrium. XR/XR chest 1V IMPRESSION: Findings as above. Electronically signed by: Ridge Valdivia MD 08/04/2024 03:42 PM EST RP Dictated By: Ridge Valdivia Signed By: Electronically signed by Ridge Valdivia 08/04/24 1542 Vent. Rate: 081 BPM Atrial Rate: 081 BPM P-R Int: 148 ms QRS Dur: 084 ms QT Int: 388 ms P-R-T Axes: 010 -51 070 degrees QTc Int: 450 ms Normal sinus rhythm Left anterior fascicular block Anterolateral infarct , age undetermined When compared with ECG of 13-MAY-2022 12:10, Left anterior fascicular block is now Present Anterior infarct is now Present Anterolateral infarct is now Present Criteria for Inferior infarct are no longer Present Inverted T waves have replaced nonspecific T wave abnormality in Lateral leads DD/ [id number] Radiology Impression Discussion of test interpretation with radiology: I have reviewed the radiologist's reading. Independent Historian Clinical information obtained from an independent historian. History obtained from or confirmed by: Other (patient's family member at the bed side provided additional history and confirmed the history provided by the patient.) Chronic Conditions Patient?s care impacted by: Cancer Critical Care Time Critical Care Time Critical Care Time: Yes Total Critical Care Time: 48 Attestation: I spent 48 minutes of Critical Care Time with this patient. This does not include time spent on separately reported billable procedures. Discharge Plan Discharge Clinical Impression: Femoral neck fracture Patient Disposition: Admitted As Inpatient Print Language: Surinamese
[2024-08-04 14:49] VITALS: BP 104/67; PULSE 89; RESP 20; TEMP 36.8; O2SAT 96; BMI 23.1
--- NOTE | 2024-08-04 15:10 | ECG_ITS ---
Test Reason : PRE-OP CLEARANCE Blood Pressure : / mmHG Vent. Rate : 081 BPM Atrial Rate : 081 BPM P-R Int : 148 ms QRS Dur : 084 ms QT Int : 388 ms P-R-T Axes : 010 -51 070 degrees QTc Int : 450 ms Normal sinus rhythm Left anterior fascicular block Anterolateral infarct , age undetermined Abnormal ECG When compared with ECG of 13-MAY-2022 12:10, Left anterior fascicular block is now Present Anterior infarct is now Present Anterolateral infarct is now Present Criteria for Inferior infarct are no longer Present Inverted T waves have replaced nonspecific T wave abnormality in Lateral leads Referred By: Caitlin Andrade Electronically Signed By:ALVAREZ WHIPPLE MD
[2024-08-04] MEDS: ondansetron HCL 4 MG/2 ML VIAL IVPUSH (15:42)
[2024-08-04 15:43] LABS: MANUAL DIFF FLAG NO
[2024-08-04] MEDS: HYDROmorphone HCl 1 MG/ML SYRINGE IVPUSH (15:44)
--- NOTE | 2024-08-04 15:45 | P.HPHOSP_ITS ---
History of Present Illness Date of Service: 08/04/24 Attending physician on admission: Rai Parikh Chief Complaint: Right hip pain Pt is a 69-year-old male with a PMH significant for?CVA with residual right- sided deficits, HTN, insulin-dependent type 2 diabetes, urinary retention who self-caths at home, colon cancer cancer (diagnosed 03/2019) metastasized to liver (diagnosed 07/2023) on chemo following with Dr. Tolbert who presents to the ED after outpatient x-ray showed right hip fracture. Patient has initially been complaining of left hip pain and oncology ordered hip and pelvis x-ray on 07/07 which was negative for acute fracture or bone metastasis. Patient then fell 5 days later on 07/12/2024. Was seen and evaluated in the ED where triage note reports he fell at home with the head strike and small abrasion on top of his head, but was not complaining of any pain at that time. Workup at that time included CXR, right lower extremity venous duplex, and CT of head and C-spine, all of which were negative. Patient was was placed in physician observation and discharged to [facility] where he reports was experiencing constant right hip pain and right lower leg weakness that was not improving with physical therapy. Scheduled appointment with Dr. Sandoval in Neurology where workup was negative for neuropathic/impingement, and repeat hip and pelvis x-ray was ordered which showed a displaced, oblique fracture through the right femoral neck with superior displacement in the distal fracture fragment. Patient otherwise denies any acute medical complaints. No numbness or tingling in extremities. No changes to bowel or bladder habits. Denies chest pain/pressure, palpitations. No shortness a breath or difficulty breathing. Of note, patient was noted to have a stage 2 decubitus ulcer, which STR reports is now healed. Pt also was scheduled to have next chemo infusion tomorrow on 08/05. In the ED pt's vitals stable and WNL. Labs were grossly unremarkable and baseline for patient. No leukocytosis. Stable H& H. No significant electrolyte abnormalities. Renal and hepatic function baseline. UA showing trace leukocyte esterase, negative nitrites, 6-10 WBCs, and 4+ bacteria. Hip and pelvis x-ray found displaced, oblique fracture through the right femoral neck with superior displacement of the distal fracture fragment. CXR showed with no acute radiographic finding. EKG demonstrated normal sinus rhythm with left anterior fascicular block but no evidence of significant ST elevations or depressions. Pt was treated with ondansetron and hydromorphone. Pt will be admitted to the hospital for treatment and further evaluation of acute right hip fracture requiring surgical intervention. Review of Systems 2 Review of Systems: Negative except for that which is stated in the [facility] Medical History Stroke Ulnar neuropathy at elbow Sleep apnea Acute embolic stroke Xerosis cutis CKD (chronic kidney disease) stage 2, GFR 60-89 ml/min Persistent proteinuria Hypertensive nephrosclerosis Elevated alkaline phosphatase level Cataract Fuchs' corneal dystrophy Colon cancer RLS (restless legs syndrome) Obesity (BMI 30.0-34.9) Dyslipidemia Type 2 diabetes mellitus with diabetic polyneuropathy Hypertension Neuropathy Diabetes mellitus Erectile dysfunction Family History Mother History of pancreatic cancer Father No problems noted. Brother Diabetes Maternal Grandmother Diabetes Surgical History History of esophagogastroduodenoscopy (EGD) Hx of left cataract extraction Hx of cornea transplant History of colonoscopy (~03/15/19) History of colon resection (~04/20/19) Social History Household Members: None Housing: Condominium Are you a primary anesthesiologist and critical care to a significant other at home: No Do you presently have visiting nurse or other home services: No Alcohol intake: never Patient Tobacco Use Status: Never used Tobacco Smoked in Last 30 Days: No e-Cigarette/Vaping Use: Never Used Second Hand Smoke Exposure: No Use of substances other than those prescribed or required for medical reasons: No Currently Displaying Signs/Symptoms of Drug Intoxication Withdrawal: No Have you been hit, kicked, punched, or otherwise hurt by someone within the past year? If so, by whom?: No Do you feel safe in your current relationship?: No Current Relationship Is there a partner from a previous relationship who is making you feel unsafe now?: No Are you made to feel afraid or neglected: No Advance Directives: Yes Advance Directives on File: Yes Advance Directives Date on File: 05/14/22 Do you have a plan to hurt others: No Plan Recently lost weight without trying: No Nutrition Risks: No Nutritional Risk Poor oral hygiene: No service: No Current occupational status: retired Cognitive needs: No Hearing needs: No Vision needs: No Meds Allergies Allergy/AdvReac Type Severity Reaction Status Date / Time No Known Allergies Allergy Verified 08/04/24 14:51 [No Known Allergies*] Home Medications ?Medication ?Instructions ?Recorded ?Confirmed ?Last Taken ?Type blood sugar diagnostic #10 ea 07/28/20 05/19/24 Unknown History pioglitazone 30 mg tablet (Actos) 30 mg PO DAILY 08/13/23 08/04/24 08/04/24 History multivitamin 1 tab PO DAILY 10/29/23 08/04/24 08/04/24 History empagliflozin 25 mg tablet 25 mg PO DAILY 07/12/24 08/04/24 08/04/24 History (Jardiance) insulin degludec 100 unit/mL (3 38 unit subcut DAILY 07/12/24 08/04/24 08/04/24 History mL) subcutaneous pen (Tresiba FlexTouch U-100 insulin) lisinopril 20 mg tablet 20 mg PO DAILY 07/12/24 08/04/24 08/04/24 History metformin 1,000 mg tablet 1,000 mg PO BID 07/12/24 08/04/24 08/04/24 History insulin lispro 100 unit/mL 12 unit subcut DAILY@1200 07/13/24 08/04/24 08/04/24 History subcutaneous pen (Humalog KwikPen (U-100) Insulin) insulin lispro 100 unit/mL 14 unit subcut DAILY@1730 07/13/24 08/04/24 08/04/24 History subcutaneous pen (Humalog KwikPen (U-100) Insulin) tamsulosin 0.4 mg capsule 0.4 mg PO BEDTIME 07/13/24 08/04/24 08/03/24 History acetaminophen 500 mg tablet 500 mg PO TID 08/04/24 08/04/24 08/04/24 History bisacodyl 10 mg rectal suppository 10 mg CA DAILY PRN Constipation 08/04/24 08/04/24 Unknown History dextrose 40 % oral gel (Glucose 15 g PO Q15M PRN Hyproglycemia 08/04/24 08/04/24 Unknown History Gel) glucagon 1 mg solution for 1 mg subcut Q15M PRN Hypoglycemia 08/04/24 08/04/24 Unknown History injection lidocaine 4 % topical patch 1 patch topical BID 08/04/24 08/04/24 08/04/24 History magnesium hydroxide 400 mg/5 mL 30 ml PO DAILY PRN Constipation 08/04/24 08/04/24 Unknown History oral suspension (Milk of Magnesia) nystatin 100,000 unit/mL oral 5 ml PO TID 08/04/24 08/04/24 08/04/24 History suspension oxycodone 5 mg tablet 5 mg PO DAILY@0600 08/04/24 08/04/24 08/04/24 11:00 History pantoprazole 40 mg tablet,delayed 40 mg PO DAILY@0630 08/04/24 08/04/24 08/04/24 History release sodium phosphates 19 gram-7 118 ml CA DAILY PRN Constipation 08/04/24 08/04/24 Unknown History gram/118 mL enema (Fleet Enema) Physical Exam 2 Vital Signs and Narrative: Vital Signs: Last Vital Signs Temp 98.3 F 08/04/24 14:49 Pulse 89 08/04/24 14:49 Resp 20 08/04/24 14:49 BP 104/67 08/04/24 14:49 Pulse Ox 96 08/04/24 14:49 O2 Del Method Room Air 08/04/24 14:49 BMI result Body Mass Index 23.1 General: AOx3, no acute distress Resp: CTA bilaterally CVS: S1, S2, RRR GI: +BS, NT, no distention Skin: Warm, dry Neuro: Cranial nerves II-XII grossly intact bilaterally. Motor grossly intact bilaterally Extremities: No edema. right leg shortened and externally rotated Psych: Appropriate affect Results Labs 08/04/24 15:39 08/04/24 15:39 Imaging Radiologist's Impressions: Impressions Chest X-Ray 08/04/24 15:15 IMPRESSION: Findings as above. Electronically signed by: Ridge Valdivia MD 08/04/2024 03:42 PM [facility] Assessment and Plan (1) Femoral neck fracture: Qualifiers: Encounter type: initial encounter Fracture type: closed Laterality: r ight Qualified Code(s): S72.001A - Fracture of unspecified part of neck of right femur, initial encounter for closed fracture Status: Acute Plan Pt is a 69-year-old male with a PMH significant for?CVA with residual right- sided deficits, HTN, insulin-dependent type 2 diabetes, urinary retention who self-caths at home, colon cancer cancer (diagnosed 03/2019) metastasized to liver (diagnosed 07/2023) on chemo following with Dr. Tolbert who presents to the ED after outpatient x-ray showed right hip fracture. Pt will be admitted to the hospital for treatment and further evaluation of acute right hip fracture requiring surgical intervention. Right hip fracture X-ray found displaced, oblique fracture through right femoral neck with superior displacement of the distal fracture fragment Unclear etiology: Pathologic versus suffered during fall on 07/12 Analgesics for pain management Clear liquid diet for now, NPO after midnight in anticipation of surgical procedure in the morning Orthopedic consult Given patient's comorbidities including metastatic cancer currently on chemotherapy, patient will be a moderate to high-risk surgical candidate No significant cardiac history, RCRI 1 point, class II risk No indication for additional cardiac treatment or workup Abnormal UA UA not entirely consistent with acute UTI Patient with history of recurrent UTIs Patient asymptomatic, will hold on antibiotics for now Follow urine cultures Metastatic colon cancer to the liver Next chemo infusion scheduled for tomorrow on 08/[address] Tolbert Heme/Onc consult Insulin-dependent type 2 diabetes Sliding-scale insulin, Lantus Diabetic diet once no longer NPO Hold Jardiance tonight, resume once no longer NPO HTN Continue lisinopril CVA/HLD Continue statin Urinary retention Sultana in place Continue tamsulosin Full Code Attending:?Dr. Parikh DVT Prophylaxis: Pneumatic compression due to impending surgical procedure Pt will require a hospitalization of at least two nights for treatment of?acute right hip fracture that will require surgical intervention pancreas Orthopedics. Quality Stroke Does the patient have a stroke diagnosis?: No VTE Prior VTE?: No VTE Risk Level:: Medical - moderate - high VTE Device Contraindication: N/A - Device Ordered VTE Drug Contraindication: Treatment Not Indicated
[2024-08-04 15:51] LABS: Basophils Percent Auto 0.6 % (0-2); Eosinophils Absolute Auto 0.1 X10*3/uL (0.0-0.4); Eosinophils Percent Auto 1.3 % (0-4); Hematocrit 44.7 % (42.0-52.0); Hemoglobin 15.1 g/dl (14.0-18.0); Imm Gran Abs Auto 0.03 X10*3/uL (0.00-0.03); Imm Gran Pct Auto 0.6 % (0.0-0.4); Lymphocytes Absolute Auto 0.7 X10*3/uL (1.2-4.9); Lymphocytes Percent Auto 12.2 % (20-40); Mean Corpuscular HGB Conc 33.8 g/dl (31.0-36.0); Mean Corpuscular Hemoglobin 30.9 pg (27.0-33.0); Mean Corpuscular Volume 91.6 fL (80.0-98.0); Mean Platelet Volume 11.4 fL (9.4-12.4); Monocytes Absolute Auto 0.6 X10*3/uL (0.1-1.2); Monocytes Percent Auto 11.6 % (2-11); Neutrophils Absolute Auto 3.9 x10*3/uL (2.0-8.3); Neutrophils Percent Auto 73.7 % (45-73); Platelet Count 101 X10*3/uL (160-400); Red Blood Count 4.88 X10*6/uL (4.60-5.80); Red Cell Distribution Width 15.4 % (11.0-16.0); White Blood Count 5.3 X10*3/uL (4.8-10.8)
[2024-08-04 15:54] VITALS: BP 126/66; PULSE 80; RESP 16; O2SAT 95
[2024-08-04 16:00] LABS: Alanine Aminotransferase 19 U/L (0-40); Albumin Level 3.4 g/dL (3.5-5.0); Alkaline Phosphatase 183 U/L (39-117); Anion Gap 17 (12-20); Aspartate Amino Transferase 35 U/L (5-37); Bilirubin Total 0.6 mg/dL (0.0-1.0); Blood Urea Nitrogen 25 mg/dL (9-16); Calcium 9.4 mg/dL (8.4-10.2); Carbon Dioxide 20 mmol/L (22-29); Chloride 105 mmol/L (96-108); Estimated Glomerular Filt Rate > 60; Glucose Random 110 mg/dL (60-115); Potassium 4.8 mmol/L (3.3-5.1); Sodium 137 mmol/L (135-145); Total Protein 6.5 g/dL (6.5-8.0)
[2024-08-04 16:04] VITALS: BP 110/49; PULSE 81; RESP 16; TEMP 37.1; O2SAT 97
--- NOTE | 2024-08-04 16:06 | MHC.EDTECH ---
This pct assumed care of Patient at 1500 ,vitals taken ,Patient belongings list done .All extra linen removed from underneath Patient ,All safety measure in Place .
[2024-08-04 17:04] LABS: INTERNATIONAL NORM RATIO 1.1 (0.9-1.1); Prothrombin Time 12.6 SEC (10.9-12.4)
[2024-08-04 17:07] LABS: Partial Thromboplastin Time 32.1 SEC (26.0-36.8)
--- NOTE | 2024-08-04 17:56 | PHA.MEDREC ---
Pharmacy Consult ? Medication Reconciliation Pharmacy has completed the medication reconciliation. Spoke with patient and he had a list from [facility]. Patient confirmed he is taking 38 units of Tresiba daily and he states he took that this morning. He confirmed he takes a Humalog Kwikpen injection and states he does 12 units @1200 and 14 units @1700 and was not able to take those today. He confirmed he took his morning medications this morning around 0800 and one Oxycodone 5mg tab @1100.
[2024-08-04 18:26] VITALS: BP 107/56; PULSE 79; RESP 18; TEMP 36.7; O2SAT 100
[2024-08-04 19:43] VITALS: BP 125/64; PULSE 79; RESP 20; TEMP 36.4; O2SAT 97
[2024-08-04 19:45] VITALS: BMI 23.4
[2024-08-04 19:50] LABS: Glucose, Whole Blood 122 mg/dL (60-115)
[2024-08-04] MEDS: Bethanechol Chloride 25 MG TABLET 50 MG PO (20:02)
[2024-08-04] MEDS: Tamsulosin HCL 0.4 MG CAPSULE PO (20:02)
[2024-08-04] MEDS: 0.9 % Sodium Chloride Flush 3 ML SYRINGE IVFLUSH (20:02)
[2024-08-04] MEDS: Morphine Sulfate 4 MG/ML CARTRIDGE IVPUSH (21:02)
--- NOTE | 2024-08-05 01:04 | HO.SKINPHOTO ---
Location: right buttock Category: pressure Stage: II Length: Width: Depth: cm Location: Category: Stage: Length: Width: Depth: cm Location: Category: Stage: Length: Width: Depth: cm Location: Category: Stage: Length: Width: Depth: cm Location: Category: Stage: Length: Width: Depth: cm Location: Category: Stage: Length: Width: Depth: cm
[2024-08-05] MEDS: Morphine Sulfate 4 MG/ML CARTRIDGE IVPUSH ×4 (03:35→20:07)
[2024-08-05 03:43] VITALS: BP 117/58; PULSE 78; RESP 16; TEMP 36.6; O2SAT 95
[2024-08-05] MEDS: Omeprazole 20 MG CAPSULE.DR PO (05:31)
[2024-08-05] MEDS: 0.9 % Sodium Chloride Flush 3 ML SYRINGE IVFLUSH ×2 (07:28→16:14)
[2024-08-05] MEDS: Dextrose 10 % 250 ML 750 ML IV (07:28)
--- NOTE | 2024-08-05 07:30 | HO.PM.IMPN ---
Subjective Subjective Date of Service: 08/05/24 Interval History: f/u on right hip fracture has hypoglycemia this morning and protocol followed Physical Exam Vital Signs: Vital Signs: Last Vital Signs Temp 97.9 F 08/05/24 03:43 Pulse 78 08/05/24 03:43 Resp 16 08/05/24 03:43 BP 117/58 L 08/05/24 03:43 Pulse Ox 95 08/05/24 03:43 O2 Del Method Room Air 08/05/24 03:43 BMI result Body Mass Index 23.4 Const: Other: General: AO X 3, no acute distress Resp: CTA bilateral CVS: S1,S2,RRR GI: +BS, NT, no distention Skin: No rash Neuro: motor grossly intact Psych: appropriate affect Objective Data Active Medications Acetaminophen (Acetaminophen 325 Mg Tablet) 650 mg PO Q6H PRN PRN Reason: Pain, Mild (Pain Scale 1-3), fever or headache Atorvastatin Calcium (Atorvastatin Calcium 40 Mg Tablet) 40 mg PO DAILY [facility] Benzonatate (Benzonatate 100 Mg Capsule) 100 mg PO TID PRN PRN Reason: Cough Bethanechol Chloride (Bethanechol Chloride 25 Mg Tablet) 50 mg PO BID [facility] Last Admin: 08/04/24 20:02 Dose: 50 mg Documented By: RADHA Bisacodyl (Bisacodyl 10 Mg Supp.Rect) 10 mg AK DAILY PRN PRN Reason: Constipation Calcium Carbonate (Calcium Carbonate 750 Mg Tab.Chew) 750 mg PO Q4H PRN PRN Reason: Heartburn Glucose (Glucose Gel 15 Gm Gel..Gram.) 15 gm PO Q15M PRN; Protocol PRN Reason: per Hypoglycemia Standing Ord. Dextrose (D10) 250 mls @ 750 mls/hr IV Q15M PRN; Protocol PRN Reason: per Hypoglycemia Standing Ord. Insulin Glargine (Insulin Glargine,Hum.Rec.Anlog 100 Unit/Ml 10 Ml Vial) 19 unit SUBCUT DAILY [facility] Insulin Human Lispro (Insulin Lispro 100 Unit/Ml 3 Ml Vial) 0 unit SUBCUT QIDACHS [facility]; Protocol Last Admin: 08/04/24 20:02 Dose: Not Given Documented By: RADHA Non-Admin Reason: No Insulin Coverage Lisinopril (Lisinopril 20 Mg Tablet) 20 mg PO DAILY [facility]; Protocol Magnesium Hydroxide (Milk Of Magnesia 30 Ml Oral.Susp) 30 ml PO DAILY PRN PRN Reason: Constipation Magnesium Hydroxide (Milk Of Magnesia 30 Ml Oral.Susp) 30 ml PO DAILY PRN PRN Reason: Constipation Melatonin (Melatonin 3 Mg Tablet) 6 mg PO BEDTIME PRN PRN Reason: Insomnia Morphine Sulfate (Morphine Sulfate 4 Mg/Ml Cartridge) 4 mg IVPUSH Q4H PRN; Protocol PRN Reason: Pain, Severe (Pain Scale 7-10) Last Admin: 08/05/24 03:35 Dose: 4 mg Documented By: RADHA Multivitamins/Vitamin C (Multivitamin Tablet) 1 tab PO DAILY [facility] Omeprazole (Omeprazole 20 Mg Capsule.Dr) 20 mg PO DAILY@0630 [facility] Last Admin: 08/05/24 05:31 Dose: 20 mg Documented By: RADHA Ondansetron HCl (Ondansetron Hcl 4 Mg/2 Ml Vial) 4 mg IVPUSH Q8H PRN PRN Reason: Nausea and Vomiting Pioglitazone HCl (Pioglitazone Hcl 30 Mg Tablet) 30 mg PO DAILY [facility] Sodium Biphosphate/Sodium Phosphate (Sodium Phosphate,Larimer-Dibasic 133 Ml Enema) 118 ml AK DAILY PRN PRN Reason: Constipation Sodium Chloride (0.9 % Sodium Chloride Flush 3 Ml Syringe) 3 ml IVFLUSH QSHIFT [facility] Last Admin: 08/04/24 20:02 Dose: 3 ml Documented By: RADHA Tamsulosin HCl (Tamsulosin Hcl 0.4 Mg Capsule) 0.4 mg PO BEDTIME [facility] Last Admin: 08/04/24 20:02 Dose: 0.4 mg Documented By: RADHA Labs 08/04/24 15:39 08/04/24 15:39 Labs: Laboratory Results - last 24 hr 08/04/24 08/04/24 08/04/24 15:39 16:50 19:45 MCV 91.6 MCH 30.9 MCHC 33.8 RDW 15.4 Plt Count 101 L D MPV 11.4 Immature Gran % (Auto) 0.6 H Neut % (Auto) 73.7 H Lymph % (Auto) 12.2 L Larimer % (Auto) 11.6 H Eos % (Auto) 1.3 Baso % (Auto) 0.6 Lymph # (Auto) 0.7 L [place]imer # (Auto) 0.6 Eos # (Auto) 0.1 Baso # (Auto) 0.0 Abs Immat Gran (auto) 0.03 Absolute Neuts (auto) 3.9 Absolute Nucleated RBC 0.000 Nucleated RBC % (auto) 0.0 PT 12.6 H INR 1.1 APTT 32.1 Hold Blue Top SEE NOTE Anion Gap 17 Estim Creat Clear Calc 76.0 Estimated GFR > 60 POC Glucose 122 H Random Glucose 110 Calcium 9.4 Magnesium 2.0 Total Bilirubin 0.6 AST 35 ALT 19 Alkaline Phosphatase 183 H Total Protein 6.5 Albumin 3.4 L Assessment and Plan (1) Femoral neck fracture: Status: Acute Plan 69/m with 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 Tolbert who presents to the ED after outpatient x-ray showed right hip fracture. Right hip displaced, oblique fracture through right femoral neck with superior displacement of the distal fracture fragment suspect pathologic fracture vs injury from fall on 07/12 To have operative repair by ortho NPO for surgery Given patient's comorbidities including metastatic cancer currently on chemotherapy, patient will be a moderate to high-risk surgical candidate No significant cardiac history, RCRI 1 point, class II risk No indication for additional cardiac treatment or workup at this time Abnormal UA UA not entirely consistent with acute UTI Patient with history of recurrent UTIs Patient asymptomatic, will hold on antibiotics for now Follow urine cultures Metastatic colon cancer to the liver Next chemo infusion scheduled for tomorrow on 08/05 will be defered Heme/Onc consult (Dr. Tolebrt) Insulin-dependent type 2 diabetes hypoglycemia Hold lantus and Jardianced/t hypoglycemia--hypoglycemia protocol SSI, start LR+dextrose before surgery Mild metabolic acidosis--monitor, especially in light of jardiance use (can cause euglycemic dka) HTN--BP on low side, hold lisinopril CVA/HLD Continue statin Urinary retention Sultana in place Continue tamsulosin Full Code DVT Prophylaxis: Pneumatic compression due to impending surgical procedure, heparin/lovenox after surgery Quality Stroke Does the patient have a stroke diagnosis?: No VTE Prior VTE?: No VTE Risk Level:: Medical - moderate - high VTE Device Contraindication: N/A - Device Ordered VTE Drug Contraindication: Treatment Not Indicated
[2024-08-05 07:35] LABS: Glucose, Whole Blood 56 mg/dL (60-115)
--- NOTE | 2024-08-05 07:37 | P.CONOP_ITS ---
History of Present Illness HPI Consult date: 08/05/24 Chief complaint: Right hip fracture Narrative: Patient is a 69-year-old male with past medical history significant for CVA with right-sided involvement, CKD, and metastatic colon cancer who was admitted to the hospital for evaluation of femoral neck fracture of right hip Date of injury 07/12/2024 The patient reports that he did experience a fall at that time, and has had persistent right hip pain and inability to bear weight since then The patient states that he and his family would like to proceed with operative intervention on this fracture, as he is normally ambulatory with a cane at baseline Hospitalists have evaluated the patient, and he was deemed moderate to high risk for surgery due to his significant past medical history The patient reports mild to moderate amounts of pain this time in the right hip Patient was resting comfortably in bed this No acute events overnight No other complaints or concerns at this time Review of Systems 2 Review of Systems: Yes all other systems are reviewed and are negative PMFSH Past Medical History Medical History Stroke Ulnar neuropathy at elbow Sleep apnea Acute embolic stroke Xerosis cutis CKD (chronic kidney disease) stage 2, GFR 60-89 ml/min Persistent proteinuria Hypertensive nephrosclerosis Elevated alkaline phosphatase level Cataract Fuchs' corneal dystrophy Colon cancer RLS (restless legs syndrome) Obesity (BMI 30.0-34.9) Dyslipidemia Type 2 diabetes mellitus with diabetic polyneuropathy Hypertension Neuropathy Diabetes mellitus Erectile dysfunction Family History Family History Mother History of pancreatic cancer Father No problems noted. Brother Diabetes Maternal Grandmother Diabetes Surgical History Surgical History History of esophagogastroduodenoscopy (EGD) Hx of left cataract extraction Hx of cornea transplant History of colonoscopy (~03/15/19) History of colon resection (~04/20/19) Social History Social History Household Members: None Housing: Condominium Are you a primary intensive care ambulance paramedic to a significant other at home: No Do you presently have visiting nurse or other home services: No Alcohol intake: never Patient Tobacco Use Status: Never used Tobacco Smoked in Last 30 Days: No e-Cigarette/Vaping Use: Never Used Second Hand Smoke Exposure: No Use of substances other than those prescribed or required for medical reasons: No Currently Displaying Signs/Symptoms of Drug Intoxication Withdrawal: No Have you been hit, kicked, punched, or otherwise hurt by someone within the past year? If so, by whom?: No Do you feel safe in your current relationship?: No Current Relationship Is there a partner from a previous relationship who is making you feel unsafe now?: No Are you made to feel afraid or neglected: No Advance Directives: Yes Advance Directives on File: Yes Advance Directives Date on File: 05/14/22 Do you have a plan to hurt others: No Plan Recently lost weight without trying: No Nutrition Risks: No Nutritional Risk Poor oral hygiene: No service: No Current occupational status: retired Cognitive needs: No Hearing needs: No Vision needs: No Meds Allergies Allergy/AdvReac Type Severity Reaction Status Date / Time No Known Allergies Allergy Verified 08/04/24 14:51 [No Known Allergies*] Active Medications: Current Medications Acetaminophen (Acetaminophen 325 Mg Tablet) 650 mg PO Q6H PRN PRN Reason: Pain, Mild (Pain Scale 1-3), fever or headache Atorvastatin Calcium (Atorvastatin Calcium 40 Mg Tablet) 40 mg PO DAILY [facility] Last Admin: 08/05/24 07:33 Dose: Not Given Benzonatate (Benzonatate 100 Mg Capsule) 100 mg PO TID PRN PRN Reason: Cough Bethanechol Chloride (Bethanechol Chloride 25 Mg Tablet) 50 mg PO BID [facility] Last Admin: 08/05/24 07:33 Dose: Not Given Bisacodyl (Bisacodyl 10 Mg Supp.Rect) [address] DAILY PRN PRN Reason: Constipation Calcium Carbonate (Calcium Carbonate 750 Mg Tab.Chew) 750 mg PO Q4H PRN PRN Reason: Heartburn Glucose (Glucose Gel 15 Gm Gel..Gram.) 15 gm PO Q15M PRN; Protocol PRN Reason: per Hypoglycemia Standing Ord. Dextrose (D10) 250 mls @ 750 mls/hr IV Q15M PRN; Protocol PRN Reason: per Hypoglycemia Standing Ord. Last Admin: 08/05/24 07:28 Dose: 750 mls/hr Insulin Human Lispro (Insulin Lispro 100 Unit/Ml 3 Ml Vial) 0 unit SUBCUT QIDACHS [facility]; Protocol Last Admin: 08/05/24 07:31 Dose: Not Given Lisinopril (Lisinopril 20 Mg Tablet) 20 mg PO DAILY [facility]; Protocol Magnesium Hydroxide (Milk Of Magnesia 30 Ml Oral.Susp) 30 ml PO DAILY PRN PRN Reason: Constipation Magnesium Hydroxide (Milk Of Magnesia 30 Ml Oral.Susp) 30 ml PO DAILY PRN PRN Reason: Constipation Melatonin (Melatonin 3 Mg Tablet) 6 mg PO BEDTIME PRN PRN Reason: Insomnia Morphine Sulfate (Morphine Sulfate 4 Mg/Ml Cartridge) 4 mg IVPUSH Q4H PRN; Protocol PRN Reason: Pain, Severe (Pain Scale 7-10) Last Admin: 08/05/24 03:35 Dose: 4 mg Multivitamins/Vitamin C (Multivitamin Tablet) 1 tab PO DAILY [facility] Last Admin: 08/05/24 07:32 Dose: Not Given Omeprazole (Omeprazole 20 Mg Capsule.Dr) 20 mg PO DAILY@0630 [facility] Last Admin: 08/05/24 05:31 Dose: 20 mg Ondansetron HCl (Ondansetron Hcl 4 Mg/2 Ml Vial) 4 mg IVPUSH Q8H PRN PRN Reason: Nausea and Vomiting Pioglitazone HCl (Pioglitazone Hcl 30 Mg Tablet) 30 mg PO DAILY [facility] Last Admin: 08/05/24 07:32 Dose: Not Given Sodium Biphosphate/Sodium Phosphate (Sodium Phosphate,[place]-Dibasic 133 Ml Enema) [address] DAILY PRN PRN Reason: Constipation Sodium Chloride (0.9 % Sodium Chloride Flush 3 Ml Syringe) 3 ml IVFLUSH QSHIFT [facility] Last Admin: 08/05/24 07:28 Dose: 3 ml Tamsulosin HCl (Tamsulosin Hcl 0.4 Mg Capsule) 0.4 mg PO BEDTIME [facility] Last Admin: 08/04/24 20:02 Dose: 0.4 mg Home Medications ?Medication ?Instructions ?Recorded ?Confirmed ?Last Taken ?Type blood sugar diagnostic #10 ea 07/28/20 05/19/24 Unknown History pioglitazone 30 mg tablet (Actos) 30 mg PO DAILY 08/13/23 08/04/24 08/04/24 History multivitamin 1 tab PO DAILY 10/29/23 08/04/24 08/04/24 History empagliflozin 25 mg tablet 25 mg PO DAILY 10/08/04/24 08/04/24 History (Jardiance) insulin degludec 100 unit/mL (3 38 unit subcut DAILY 07/12/24 08/04/24 08/04/24 History mL) subcutaneous pen (Tresiba FlexTouch U-100 insulin) lisinopril 20 mg tablet 20 mg PO DAILY 07/12/24 08/04/24 08/04/24 History metformin 1,000 mg tablet 1,000 mg PO BID 07/12/24 08/04/24 08/04/24 History insulin lispro 100 unit/mL 12 unit subcut DAILY@1200 07/13/24 08/04/24 08/04/24 History subcutaneous pen (Humalog KwikPen (U-100) Insulin) insulin lispro 100 unit/mL 14 unit subcut DAILY@1730 07/13/24 08/04/24 08/04/24 History subcutaneous pen (Humalog KwikPen (U-100) Insulin) tamsulosin 0.4 mg capsule 0.4 mg PO BEDTIME 07/13/24 08/04/24 08/03/24 History acetaminophen 500 mg tablet 500 mg PO TID 08/04/24 08/04/24 08/04/24 History bisacodyl 10 mg rectal suppository [address] DAILY PRN Constipation 08/04/24 08/04/24 Unknown History dextrose 40 % oral gel (Glucose 15 g PO Q15M PRN Hyproglycemia 08/04/24 08/04/24 Unknown History Gel) glucagon 1 mg solution for 1 mg subcut Q15M PRN Hypoglycemia 08/04/24 08/04/24 Unknown History injection lidocaine 4 % topical patch 1 patch topical BID 08/04/24 08/04/24 08/04/24 History magnesium hydroxide 400 mg/5 mL 30 ml PO DAILY PRN Constipation 08/04/24 08/04/24 Unknown History oral suspension (Milk of Magnesia) nystatin 100,000 unit/mL oral 5 ml PO TID 08/04/24 08/04/24 08/04/24 History suspension oxycodone 5 mg tablet 5 mg PO DAILY@0600 08/04/24 08/04/24 08/04/24 11:00 History pantoprazole 40 mg tablet,delayed 40 mg PO DAILY@0630 08/04/24 08/04/2408/04/24 History release sodium phosphates 19 gram-[address] DAILY PRN Constipation 08/04/24 08/04/24 Unknown History gram/118 mL enema (Fleet Enema) Physical Exam 2 Vital Signs: Vital Signs: Last Vital Signs Temp 97.9 F 08/05/24 03:43 Pulse 78 08/05/24 03:43 Resp 16 08/05/24 03:43 BP 117/58 L 08/05/24 03:43 Pulse Ox 95 08/05/24 03:43 O2 Del Method Room Air 08/05/24 03:43 BMI result Body Mass Index 23.4 Extrem: Other: On inspection, there is no visible deformity of the patient's right hip However, the right leg is noted to be externally rotated No significant shortening No evidence of surrounding erythema, ecchymosis No evidence of infection Patient is able to flex and extend the digits of the left foot without difficulty Compartments soft, nontender Distal sensation intact Capillary refill brisk Results Labs 08/04/24 15:39 08/04/24 15:39 Labs: Abnormal lab results 08/04/24 08/04/24 08/05/24 Range/Units 15:39 19:45 07:24 Plt Count 101 L D (160-400) X10*3/uL Immature Gran % (Auto) 0.6 H (0.0-0.4) % Neut % (Auto) 73.7 H (45-73) % Lymph % (Auto) 12.2 L (20-40) % [place] % (Auto) 11.6 H (2-11) % Lymph # (Auto) 0.7 L (1.2-4.9) X10*3/uL PT 12.6 H (10.9-12.4) SEC Carbon Dioxide 20 L (22-29) mmol/L BUN 25 H (9-16) mg/dL POC Glucose 122 H 56 L* (60-115) mg/dL Alkaline Phosphatase 183 H (39-117) U/L Albumin 3.4 L (3.5-5.0) g/dL H & H 08/04/24 Range/Units 15:39 Hgb 15.1 (14.0-18.0) g/dl Hct 44.7 (42.0-52.0) % Coagulation 08/04/24 Range/Units 15:39 INR 1.1 (0.9-1.1) All other labs normal. Diagnostic results Hip x-ray: report reviewed and image reviewed (X-rays obtained in the ED yesterday and independently reviewed by me, Evans Sellers PA-C, demonstrate displaced femoral neck fracture of the right hip. ) Assessment and Plan (1) Displaced fracture of right femoral neck: Status: Acute Plan 1. Femoral neck fracture of right hip Date of injury 07/12/2024 I discussed the patient with Dr. [place], and a collaborative treatment plan was formed: I educated the patient about the condition. I discussed both operative and nonoperative treatment options. The patient would like to proceed with surgery. The risks and benefits of operative treatment were discussed with the patient and the patient wishes to proceed with surgery. These risks include, but are not limited to, risk of damage to blood vessels, nerves, tendons, infection, recurrence, incomplete relief of preoperative symptoms, persistent pain, possible need for further surgery, and the risks associated with regional blocks and/or anesthesia. Plan is to take the patient to the operating room today for the following procedures: 1. Right hip hemiarthroplasty Continue NPO status for surgery Continue with all other recommendations per Medicine Procedures Date of Service Date of Service: 08/05/24
[2024-08-05 07:46] VITALS: BP 119/58; PULSE 77; RESP 18; TEMP 36.3; O2SAT 94
[2024-08-05 07:58] LABS: Glucose, Whole Blood 158 mg/dL (60-115)
--- NOTE | 2024-08-05 08:15 | P.CNHO_ITS ---
Subjective - Subjective Chief complaint: Consult for: Colon carcinoma with liver Mets, right hip fracture. Patient: known to practice within the last 3 years Consult date: 08/05/24 Requesting Physician: Virgilio. Primary Care Provider: Mauri Dixon [facility] Family Provider: Mauri dixon. Medical Summary: DIAGNOSIS: Hip fracture. Colon cancer with liver metastases. HPI - Consult Narrative Reason for consult: Consult for:Right hip fracture.2. Colon cancer with liver Mets. Narrative: Navarro Frost is a 69 year old gentleman, PMH significant for?CVA with residual right-sided deficits, HTN, insulin-dependent type 2 diabetes, urinary retention who self-caths at home, colon cancer cancer (diagnosed 03/2019) metastasized to liver (diagnosed 07/2023) on chemo following with Dr. Tolbert. He presented to the ED after outpatient x-ray showed right hip fracture. Patient has initially been complaining of left hip pain and oncology ordered hip and pelvis x-ray on 07/07 which was negative for acute fracture or bone metastasis. Patient then fell 5 days later on 07/12/2024. Was seen and evaluated in the ED where triage note reports he fell at home with the head strike and small abrasion on top of his head, but was not complaining of any pain at that time. Workup at that time included CXR, right lower extremity venous duplex, and CT of head and C-spine, all of which were negative. Patient was was placed in physician observation and discharged to [facility] where he reports was experiencing constant right hip pain and right lower leg weakness that was not improving with physical therapy. Scheduled appointment with Dr. Sandoval in Neurology where workup was negative for neuropathic/impingement, and repeat hip and pelvis x-ray was ordered which showed a displaced, oblique fracture through the right femoral neck with superior displacement in the distal fracture fragment. Patient otherwise denies any acute medical complaints. No numbness or tingling in extremities. No changes to bowel or bladder habits. Denies chest pain/pressure, palpitations. No shortness a breath or difficulty breathing. Of note, patient was noted to have a stage 2 decubitus ulcer, which STR reports is now healed. Pt also was scheduled to have next chemo infusion tomorrow on 08/05. In the ED pt's vitals stable and WNL. Labs were grossly unremarkable and baseline for patient. No leukocytosis. Stable H& H. No significant electrolyte abnormalities. Renal and hepatic function baseline. UA showing trace leukocyte esterase, negative nitrites, 6-10 WBCs, and 4+ bacteria. Hip and pelvis x-ray found displaced, oblique fracture through the right femoral neck with superior displacement of the distal fracture fragment. CXR showed with no acute radiographic finding. EKG demonstrated normal sinus rhythm with left anterior fascicular block but no evidence of significant ST elevations or depressions. Pt was treated with ondansetron and hydromorphone. He was admitted to the hospital for treatment and further evaluation of acute right hip fracture requiring surgical intervention. Medical History:) Stroke Ulnar neuropathy at elbow Sleep apnea Acute embolic stroke Xerosis cutis CKD (chronic kidney disease) stage 2, GFR 60-89 ml/min Persistent proteinuria Hypertensive nephrosclerosis Elevated alkaline phosphatase level Cataract Fuchs' corneal dystrophy Colon cancer RLS (restless legs syndrome) Obesity (BMI 30.0-34.9) Dyslipidemia Type 2 diabetes mellitus with diabetic polyneuropathy Hypertension Neuropathy Diabetes mellitus Erectile dysfunction Surgical History: History of esophagogastroduodenoscopy (EGD) Hx of left cataract extraction Hx of cornea transplant History of colonoscopy (~03/15/19) History of colon resection (~04/20/19) Family History: Mother History of pancreatic cancer Father No problems noted. Brother Diabetes Maternal Grandmother Diabetes Social History:) Household Members: None Housing: [facility] Are you a primary hearing healthcare practitioner to a significant other at home: No Do you presently have visiting nurse or other home services: No Alcohol intake: never Patient Tobacco Use Status: Never used Tobacco Smoked in Last 30 Days: No e-Cigarette/Vaping Use: Never Used Second Hand Smoke Exposure: No Review of Systems Review of Systems: Negative except for that which is stated in the HPI. 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 Brother Diabetes Maternal Grandmother Diabetes Surgical History: Surgical History (Last Reviewed 08/06/24 @ 13:07 by Meaghan Nation PT) History of colon resection Onset Date: ~04/20/19 History of colonoscopy Onset Date: ~03/15/19 History of esophagogastroduodenoscopy (EGD) Hx of cornea transplant Hx of left cataract extraction Social History: Social History (Last Reviewed 08/04/24 @ 17:46 by GISELLE Morin) Living Situation History: Household Members: None Housing: Condominium Housing Other:: REHAB Are you a primary hearing healthcare practitioner to a significant other at home: No Do you presently have visiting nurse or other home services: No Alcohol History Details: 1. How often do you have a drink containing alcohol?: a. Never AUDIT-C Alcohol total score: 0 Currently Displaying Signs/Symptoms of Alcohol Withdrawal: No Tobacco History: Patient Tobacco Use Status: Never used Tobacco Smoked in Last 30 Days: No e-Cigarette/Vaping Use: Never Used Second Hand Smoke Exposure: No Substance Use History: Use of substances other than those prescribed or required for medical reasons : No Currently Displaying Signs/Symptoms of Drug Intoxication Withdrawal: No Domestic Abuse History: Have you been hit, kicked, punched, or otherwise hurt by someone within the past year? If so, by whom?: No Do you feel safe in your current relationship?: No Current Relationship Is there a partner from a previous relationship who is making you feel unsafe now?: No Are you made to feel afraid or neglected: No Advance Directives: Advance Directives: Yes Advance Directives Information Provided: Yes Advance Directives on File: Yes Advance Directives Date on File: 04/16/19 Homicidal Assessment: Do you have a plan to hurt others: No Plan Nutrition Assessment: Recently lost weight without trying: Yes How much weight loss: 14-23 pounds Eating poorly because of decreased appetite: No Nutrition screen score: 4 Nutrition Risks: No Nutritional Risk Poor oral hygiene: No Occupation Assessmet: service: No Current occupational status: retired Home Medications and Allergies Current Medications: Current Medications Acetaminophen (Acetaminophen 325 Mg Tablet) 650 mg PO Q6H PRN PRN Reason: Pain, Mild (Pain Scale 1-3), fever or headache Atorvastatin Calcium (Atorvastatin Calcium 40 Mg Tablet) 40 mg PO DAILY [facility] Last Admin: 08/05/24 07:33 Dose: Not Given Benzonatate (Benzonatate 100 Mg Capsule) 100 mg PO TID PRN PRN Reason: Cough Bethanechol Chloride (Bethanechol Chloride 25 Mg Tablet) 50 mg PO BID [facility] Last Admin: 08/05/24 07:33 Dose: Not Given Bisacodyl (Bisacodyl 10 Mg Supp.Rect) 10 mg MT DAILY PRN PRN Reason: Constipation Calcium Carbonate (Calcium Carbonate 750 Mg Tab.Chew) 750 mg PO Q4H PRN PRN Reason: Heartburn Glucose (Glucose Gel 15 Gm Gel..Gram.) 15 gm PO Q15M PRN; Protocol PRN Reason: per Hypoglycemia Standing Ord. Dextrose (D10) 250 mls @ 750 mls/hr IV Q15M PRN; Protocol PRN Reason: per Hypoglycemia Standing Ord. Last Infusion: 08/05/24 07:59 Dose: Infused Dextrose/Lactated Ringer's (D5lr) 1,000 mls @ 80 mls/hr IVCONT .[id number] [facility] Insulin Human Lispro (Insulin Lispro 100 Unit/Ml 3 Ml Vial) 0 unit SUBCUT QIDACHS [facility]; Protocol Last Admin: 08/05/24 07:31 Dose: Not Given Lisinopril (Lisinopril 20 Mg Tablet) 20 mg PO DAILY [facility]; Protocol Magnesium Hydroxide (Milk Of Magnesia 30 Ml Oral.Susp) 30 ml PO DAILY PRN PRN Reason: Constipation Magnesium Hydroxide (Milk Of Magnesia 30 Ml Oral.Susp) 30 ml PO DAILY PRN PRN Reason: Constipation Melatonin (Melatonin 3 Mg Tablet) 6 mg PO BEDTIME PRN PRN Reason: Insomnia Morphine Sulfate (Morphine Sulfate 4 Mg/Ml Cartridge) 4 mg IVPUSH Q4H PRN; Protocol PRN Reason: Pain, Severe (Pain Scale 7-10) Last Admin: 08/05/24 03:35 Dose: 4 mg Multivitamins/Vitamin C (Multivitamin Tablet) 1 tab PO DAILY [facility] Last Admin: 08/05/24 07:32 Dose: Not Given Omeprazole (Omeprazole 20 Mg Capsule.Dr) 20 mg PO DAILY@0630 [facility] Last Admin: 08/05/24 05:31 Dose: 20 mg Ondansetron HCl (Ondansetron Hcl 4 Mg/2 Ml Vial) 4 mg IVPUSH Q8H PRN PRN Reason: Nausea and Vomiting Pioglitazone HCl (Pioglitazone Hcl 30 Mg Tablet) 30 mg PO DAILY [facility] Last Admin: 08/05/24 07:32 Dose: Not Given Sodium Biphosphate/Sodium Phosphate (Sodium Phosphate,Blackford-Dibasic 133 Ml Enema) 118 ml MT DAILY PRN PRN Reason: Constipation Sodium Chloride (0.9 % Sodium Chloride Flush 3 Ml Syringe) 3 ml IVFLUSH QSHIFT [facility] Last Admin: 08/05/24 07:28 Dose: 3 ml Tamsulosin HCl (Tamsulosin Hcl 0.4 Mg Capsule) 0.4 mg PO BEDTIME [facility] Last Admin: 08/04/24 20:02 Dose: 0.4 mg Home Medications ?Medication ?Instructions ?Recorded ?Confirmed ?Type blood sugar diagnostic #10 ea 07/28/20 05/19/24 History pioglitazone 30 mg tablet (Actos) 30 mg PO DAILY 08/13/23 08/04/24 History multivitamin 1 tab PO DAILY 10/29/23 08/04/24 History empagliflozin 25 mg tablet 25 mg PO DAILY 07/12/24 08/04/24 History (Jardiance) insulin degludec 100 unit/mL (3 38 unit subcut DAILY 07/12/24 08/04/24 History mL) subcutaneous pen (Tresiba FlexTouch U-100 insulin) lisinopril 20 mg tablet 20 mg PO DAILY 07/12/24 08/04/24 History metformin 1,000 mg tablet 1,000 mg PO BID 07/12/24 08/04/24 History insulin lispro 100 unit/mL 12 unit subcut DAILY@1200 07/13/24 08/04/24 History subcutaneous pen (Humalog KwikPen (U-100) Insulin) insulin lispro 100 unit/mL 14 unit subcut DAILY@1730 07/13/24 08/04/24 History subcutaneous pen (Humalog KwikPen (U-100) Insulin) tamsulosin 0.4 mg capsule 0.4 mg PO BEDTIME 07/13/24 08/04/24 History acetaminophen 500 mg tablet 500 mg PO TID 08/04/24 08/04/24 History bisacodyl 10 mg rectal suppository 10 mg MT DAILY PRN Constipation 08/04/24 08/04/24 History dextrose 40 % oral gel (Glucose 15 g PO Q15M PRN Hyproglycemia 08/04/24 08/04/24 History Gel) glucagon 1 mg solution for 1 mg subcut Q15M PRN Hypoglycemia 08/04/24 08/04/24 History injection lidocaine 4 % topical patch 1 patch topical BID 08/04/24 08/04/24 History magnesium hydroxide 400 mg/5 mL 30 ml PO DAILY PRN Constipation 08/04/24 08/04/24 History oral suspension (Milk of Magnesia) nystatin 100,000 unit/mL oral 5 ml PO TID 08/04/24 08/04/24 History suspension oxycodone 5 mg tablet 5 mg PO DAILY@0600 08/04/24 08/04/24 History pantoprazole 40 mg tablet,delayed 40 mg PO DAILY@0630 08/04/24 08/04/24 History release sodium phosphates 19 gram-7 118 ml MT DAILY PRN Constipation 08/04/24 08/04/24 History gram/118 mL enema (Fleet Enema) Allergies Allergy/AdvReac Type Severity Reaction Status Date / Time No Known Allergies Allergy Verified 08/06/24 08:20 [No Known Allergies*] Physical Exam Vital signs: Vital Signs Temp 97.3 F 08/05/24 07:46 Pulse 77 08/05/24 07:46 Resp 18 08/05/24 07:46 BP 119/58 L 08/05/24 07:46 Pulse Ox 94 08/05/24 07:46 O2 Del Method Room Air 08/05/24 07:46 Intake & Output 08/04/24 08/05/24 08/05/24 18:59 06:59 18:59 Intake Total 60 / 60 250 / 250 Output Total 400 / 400 Balance -340 / -340 250 / 250 Urine Output (Average ml/kg/hr) 0.45 0.45 Intake: Intake, Oral Amount 60 / 60 Intake, IV Amount 250 / 250 Dextrose 10 % 250 ml @ 750 mls/ 250 / 250 hr IV Q15M PRN Rx#:[id number] Output: Output, Urine Amount 400 / 400 Output, Urine Amount (Catheter) 0 / 0 Female External 0 / 0 Other: NPO Yes Last Bowel Movement 08/01/24 Weight 73 kg 73.9 kg [place] Weight in Grams 19913 Weight 73.9 kg Hem/Onc Consult Result - Labs CBC & Chem 7: 08/08/24 05:48 08/08/24 05:48 Labs: Short CBC 08/04/24 Range/Units 15:39 WBC 5.3 (4.8-10.8) X10*3/uL Hgb 15.1 (14.0-18.0) g/dl Hct 44.7 (42.0-52.0) % Plt Count 101 L D (160-400) X10*3/uL BMP 08/04/24 15:39 Sodium 137 Potassium 4.8 Chloride 105 Carbon Dioxide 20 L BUN 25 H Creatinine 0.92 Calcium 9.4 Liver Function 08/04/24 Range/Units 15:39 Total Bilirubin 0.6 (0.0-1.0) mg/dL AST 35 (5-37) U/L ALT 19 (0-40) U/L Alkaline Phosphatase 183 H (39-117) U/L Albumin 3.4 L (3.5-5.0) g/dL Assessment and Plan Patient Active problem list reviewed?: Yes (1) Colon adenocarcinoma Status: Acute Assessment and plan: Pt is a 69-year-old male with a PMH significant for?CVA with residual right- sided deficits, with moderately differentiated colon hepatic flexure/right-sided colon cancer cancer (diagnosed 03/2019) metastasized to liver (diagnosed 07/2023). He is currently on chemo under the care of Dr. Tolbert. He developed recurrence with liver metastasis diagnosed in July 2023. He underwent right hemicolectomy on 04/20/2019. Pathology-adenocarcinoma, moderately differentiated invasive into pericolonic soft tissue. Surgical margins negative, no metastatic carcinoma in 24 lymph nodes. Tumor size 3.7 x 3.1 x 1.8 cm, TNM stage, pT3 N0, stage IIA. MMR proficient. Immunohistochemical stains positive for CK 20, CDX2 and SATB-2. Negative for CK7. MSI stable. 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 Negative for BRAF, EGFR, ERBB2, met, kit, TP53, NRAS, KRAS and PDGFRA. (done at [facility]). He started treatment with FOLFOX regimen in the preoperative setting on 08/2023. He received last cycle, cycle 7 on 12/09/2023. He was evaluated for surgical resection at [facility]. On 01/26/2024 patient underwent ERCP and biopsy of left and right intrahepatic bile ducts by Dr. Agudelo, pathology-left intrahepatic duct: Small fragments of ductal epithelium with reactive changes, negative for malignancy. Right intrahepatic duct biopsy: High-grade dysplasia/adenocarcinoma Based on above findings, he was felt not to be a surgical candidate. He resumed chemotherapy, FOLFOX with Avastin from 02/11/24 until 06/04/2024. Underwent CT chest/abdomen pelvis on 06/07/2024 which unfortunately showed new metastasis in the liver segment 3 measuring up to 5.3 cm, central necrosis. Worsening biliary dilatation secondary to enlarging metastasis in the bifurcation of main hepatic ducts. Since he was no longer responding to first-line chemotherapy, he was switched over to Irinotecan with bevacizumab in the second-line setting. His liver enzymes remained stable. He now presented to the ED after outpatient x-ray showed right hip fracture. Symptoms had been ongoing for a couple of weeks. He has been admitted to the hospital for treatment and further evaluation of acute right hip fracture requiring surgical intervention. Right hip fracture X-ray found displaced, oblique fracture through right femoral neck with superior displacement of the distal fracture fragment. Unclear etiology: This could be a Pathologic versus suffered during fall on 07/12, most likely the latter. Will have a bone scan done as an outpatient. Given patient's comorbidities including metastatic cancer currently on chemotherapy, patient will be a moderate to high-risk surgical candidate. PLAN: He has had an Orthopedic consult: The plan is for him to have Right hip hemiarthroplasty, today. He has been getting analgesics for pain management Patient was actually due for chemotherapy today, will hold off till he recovers from the fracture. I wish him the best of luck, Thank you for the consult, will follow along with you, CC: Destiny. - Time Spent With Patient Time Spent with Patient (in minutes): 30
[2024-08-05] MEDS: Dextrose 5 % and Lactated Ring 1,000 ML 80 ML IVCONT ×2 (08:27→20:10)
[2024-08-05 11:09] LABS: Glucose, Whole Blood 79 mg/dL (60-115)
[2024-08-05 11:38] VITALS: BMI 23.4
--- NOTE | 2024-08-05 11:42 | MHC.CLN ---
RE: CONSULT PT WITH INCREASED NUTRITION RISK R/T PRESSURE INJURY CURRENTLY NPO WHEN DIET ADVANCES, RECOMMEND ADDING SUPPLEMENT TO PROMOTE WOUND HEALING ENSURE TID TO PROVIDE 1050KCALS, 60G PROTEIN MONITOR PO INTAKE AND ENCOURAGE SUPPLEMENTS SEE ALSO FULL CLINICAL NUTRITION ASSESSMENT
--- NOTE | 2024-08-05 13:41 | HO.WOUND ---
Wound Consult: Initial 69yr old? male admitted to [facility] on 08/04/24 - See progress notes and H&P for detailed history.? Wound consult placed for Buttock wound POA .? Chart review and photo review completed. Right Sacrum Etiology: ??Stage 2 Pressure injury Present on Admission Wound Bed: pink moist wound bed Drainage / Odor: unknown Edges: ? linear and macerated Jeaneth wound: MASD - maceration noted - mirrored hyperpigmentation noted Goals of Treatment: ? Barrier cream to protect from moisture and friction and allow for moist wound healing. Foam dressing to aid in pressure redistribution Recommendations: 1. Turn and Reposition every 2 hours and as needed for patient comfort.? Use pillows or wedges to support off loading positions. 2. Off Load all bony prominences with use of pillows and heel boots if needed.? Apply Preventative foams where needed. ? 3. Monitor for incontinence and moisture control, use barrier creams when needed for prevention and treatment. 4. Provide adequate and supplemental nutrition.? 5. Order low air loss mattress. 6. When applicable maintain blood glucose levels per Providers order. 7. Sacrum - Cleanse with PH balanced wipes, spray. Pat dry. Apply triad cream to wound bed, apply foam dressing to aid in pressure redistribution. Change every 3 days and PRN. Off Load pressure with Q2hr turns. Re-consult wound care Nurse for wound deterioration or wound changes.
--- NOTE | 2024-08-05 14:00 | MHC.CM.PN ---
IMM DELIVERED. PATIENT LIVES IN A CONDO ALONE. AMBULATES W/ CANE @ [facility]. ADMITTED FROM [facility], WHERE HE WENT FOR STR ON 07/14 AFTER A FALL AT HOME. PCP [facility] ON FILE AND VERIFIED. DX CANCER, CHEMO ON HOLD FOR REHAB. DP: PENDING POST OP PT EVAL. GOAL IS REHAB. CHOICES ARE 1) [facility] AND 2) RETURN TO [facility]. DISCUSSED THE DIFFERENCE BETWEEN AR AND STR. PATIENT UNDERSTANDS HE MAY NOT QUALIFY FOR AR. CM WILL CONTINUE TO FOLLOW.
[2024-08-05 15:15] VITALS: BP 104/57; PULSE 74; RESP 18; TEMP 36.8; O2SAT 95
[2024-08-05 16:16] LABS: Glucose, Whole Blood 121 mg/dL (60-115)
[2024-08-05 19:20] VITALS: BP 129/68; PULSE 79; RESP 16; TEMP 36.7; O2SAT 97
[2024-08-05] MEDS: Tamsulosin HCL 0.4 MG CAPSULE PO (20:07)
[2024-08-05] MEDS: Bethanechol Chloride 25 MG TABLET 50 MG PO (20:07)
[2024-08-05 20:18] LABS: Glucose, Whole Blood 176 mg/dL (60-115)
[2024-08-05] MEDS: Insulin Lispro 100 UNIT/ML 3 ML VIAL SUBCUT (20:42)
[2024-08-06] VITALS (15 sets, daily range): BP systolic 103–156; BP diastolic 57–75; PULSE 70–93; RESP 14–16; TEMP 36.2–37.4; O2SAT 92–98
[2024-08-06] MEDS: Morphine Sulfate 4 MG/ML CARTRIDGE IVPUSH ×3 (05:45→20:22)
[2024-08-06] MEDS: Omeprazole 20 MG CAPSULE.DR PO (05:45)
[2024-08-06 06:26] LABS: Hematocrit 40.8 % (42.0-52.0); Hemoglobin 13.7 g/dl (14.0-18.0); Mean Corpuscular HGB Conc 33.6 g/dl (31.0-36.0); Mean Corpuscular Hemoglobin 30.7 pg (27.0-33.0); Mean Corpuscular Volume 91.5 fL (80.0-98.0); Mean Platelet Volume 10.9 fL (9.4-12.4); Red Blood Count 4.46 X10*6/uL (4.60-5.80); Red Cell Distribution Width 15.5 % (11.0-16.0); White Blood Count 5.9 X10*3/uL (4.8-10.8)
[2024-08-06 06:28] LABS: Platelet Count 85 X10*3/uL (160-400)
[2024-08-06 06:45] LABS: Anion Gap 13 (12-20); Blood Urea Nitrogen 16 mg/dL (9-16); Calcium 8.7 mg/dL (8.4-10.2); Carbon Dioxide 23 mmol/L (22-29); Chloride 104 mmol/L (96-108); Creatinine Clr Calc Pharmacy 114.6; Estimated Glomerular Filt Rate > 60; Glucose Random 117 mg/dL (60-115); Potassium 4.2 mmol/L (3.3-5.1); Sodium 136 mmol/L (135-145)
[2024-08-06 07:12] LABS: Glucose, Whole Blood 136 mg/dL (60-115)
--- NOTE | 2024-08-06 07:16 | P.PNIM_ITS ---
Subjective Subjective Date of Service: 08/07/24 Interval History: f/u on right hip fracture no hypoglycemia hip surgery done yesterday pain is reasonably controlled Physical Exam 2 Vital Signs: Vital Signs: Last Vital Signs Temp 99.4 F 08/06/24 03:48 Pulse 77 08/06/24 03:48 Resp 16 08/06/24 03:48 BP 119/57 L 08/06/24 03:48 Pulse Ox 96 08/06/24 03:48 O2 Del Method Room Air 08/06/24 03:48 BMI result Body Mass Index 23.4 General: AO X 3, no acute distress Resp: CTA bilateral CVS: S1,S2,RRR GI: +BS, NT, no distention Skin: N Neuro: motor grossly intact Psych: appropriate affect Const: Other: General: AO X 3, no acute distress Resp: CTA bilateral CVS: S1,S2,RRR GI: +BS, NT, no distention Skin: No rash Neuro: motor grossly intact Psych: appropriate affect Objective Data Active Medications Acetaminophen (Acetaminophen 325 Mg Tablet) 650 mg PO Q6H PRN PRN Reason: Pain, Mild (Pain Scale 1-3), fever or headache Atorvastatin Calcium (Atorvastatin Calcium 40 Mg Tablet) 40 mg PO DAILY [facility] Last Admin: 08/05/24 07:33 Dose: Not Given Documented By: MIGEL Non-Admin Reason: NPO Benzonatate (Benzonatate 100 Mg Capsule) 100 mg PO TID PRN PRN Reason: Cough Bethanechol Chloride (Bethanechol Chloride 25 Mg Tablet) 50 mg PO BID [facility] Last Admin: 08/05/24 20:07 Dose: 50 mg Documented By: RADHA Bisacodyl (Bisacodyl 10 Mg Supp.Rect) 10 mg ID DAILY PRN PRN Reason: Constipation Calcium Carbonate (Calcium Carbonate 750 Mg Tab.Chew) 750 mg PO Q4H PRN PRN Reason: Heartburn Glucose (Glucose Gel 15 Gm Gel..Gram.) 15 gm PO Q15M PRN; Protocol PRN Reason: per Hypoglycemia Standing Ord. Dextrose (D10) 250 mls @ 750 mls/hr IV Q15M PRN; Protocol PRN Reason: per Hypoglycemia Standing Ord. Last Infusion: 08/05/24 07:59 Dose: Infused Documented By: VITALIY Dextrose/Lactated Ringer's (D5lr) 1,000 mls @ 80 mls/hr IVCONT .[id number] [facility] Last Admin: 08/05/24 20:10 Dose: 80 mls/hr Documented By: RADHA Insulin Human Lispro (Insulin Lispro 100 Unit/Ml 3 Ml Vial) 0 unit SUBCUT QIDACHS [facility]; Protocol Last Admin: 08/05/24 20:42 Dose: 2 unit Documented By: RADHA Lisinopril (Lisinopril 20 Mg Tablet) 20 mg PO DAILY [facility]; Protocol Magnesium Hydroxide (Milk Of Magnesia 30 Ml Oral.Susp) 30 ml PO DAILY PRN PRN Reason: Constipation Magnesium Hydroxide (Milk Of Magnesia 30 Ml Oral.Susp) 30 ml PO DAILY PRN PRN Reason: Constipation Melatonin (Melatonin 3 Mg Tablet) 6 mg PO BEDTIME PRN PRN Reason: Insomnia Morphine Sulfate (Morphine Sulfate 4 Mg/Ml Cartridge) 4 mg IVPUSH Q4H PRN; Protocol PRN Reason: Pain, Severe (Pain Scale 7-10) Last Admin: 08/06/24 05:45 Dose: 4 mg Documented By: RADHA Multivitamins/Vitamin C (Multivitamin Tablet) 1 tab PO DAILY [facility] Last Admin: 08/05/24 07:32 Dose: Not Given Documented By: MIGEL Non-Admin Reason: NPO Omeprazole (Omeprazole 20 Mg Capsule.Dr) 20 mg PO DAILY@0630 [facility] Last Admin: 08/06/24 05:45 Dose: 20 mg Documented By: RADHA Ondansetron HCl (Ondansetron Hcl 4 Mg/2 Ml Vial) 4 mg IVPUSH Q8H PRN PRN Reason: Nausea and Vomiting Pioglitazone HCl (Pioglitazone Hcl 30 Mg Tablet) 30 mg PO DAILY [facility] Last Admin: 08/05/24 07:32 Dose: Not Given Documented By: MIGEL Non-Admin Reason: NPO Sodium Biphosphate/Sodium Phosphate (Sodium Phosphate,[place]-Dibasic 133 Ml Enema) 118 ml ID DAILY PRN PRN Reason: Constipation Sodium Chloride (0.9 % Sodium Chloride Flush 3 Ml Syringe) 3 ml IVFLUSH QSHIFT [facility] Last Admin: 08/05/24 22:28 Dose: Not Given Documented By: RADHA Non-Admin Reason: IV Running Tamsulosin HCl (Tamsulosin Hcl 0.4 Mg Capsule) 0.4 mg PO BEDTIME [facility] Last Admin: 08/05/24 20:07 Dose: 0.4 mg Documented By: RADHA Labs 08/07/24 06:08 08/07/24 06:08 Labs: Laboratory Results - last 24 hr 08/05/24 08/05/24 08/05/24 07:24 07:54 11:02 MCV MCH MCHC RDW Plt Count MPV Absolute Nucleated RBC Nucleated RBC % (auto) Anion Gap Estim Creat Clear Calc Estimated GFR POC Glucose 56 L* 158 H 79 Random Glucose Calcium Hold Yellow Top 08/05/24 08/05/24 08/06/24 16:08 20:15 06:11 MCV 91.5 MCH 30.7 MCHC 33.6 RDW 15.5 Plt Count 85 L MPV 10.9 Absolute Nucleated RBC 0.000 Nucleated RBC % (auto) 0.0 Anion Gap 13 Estim Creat Clear Calc 114.6 Estimated GFR > 60 POC Glucose 121 H 176 H Random Glucose 117 H Calcium 8.7 D Hold Yellow Top See Note 08/06/24 07:08 MCV MCH MCHC RDW Plt Count MPV Absolute Nucleated RBC Nucleated RBC % (auto) Anion Gap Estim Creat Clear Calc Estimated GFR POC Glucose 136 H Random Glucose Calcium Hold Yellow Top Assessment and Plan (1) Femoral neck fracture: Status: Acute Plan 69/m with 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 Tolbert who presents to the ED after outpatient x-ray showed right hip fracture. Right hip displaced, oblique fracture through right femoral neck with superior displacement of the distal fracture fragment suspect pathologic fracture vs injury from fall on 07/12 s/p operative repair on 08/06, doing well dvt prophylaxis with lovenox starting today morphine and oxycodone for pain Abnormal UA UA not entirely consistent with acute UTI Patient with history of recurrent UTIs Patient asymptomatic, will hold on antibiotics for now Metastatic colon cancer to the liver Outpatient follow up with oncology for chemo after dc Heme/Onc consult (Dr. Tolbert) Insulin-dependent type 2 diabetes hypoglycemia resume lantus at 20 units, and Jardianced at 10 mg, hold metformin, SSI and diabetic diet Mild metabolic acidosis-resolved, especially in light of jardiance use (can cause euglycemic dka) HTN--BP on low side, hold lisinopril CVA/HLD Continue statin Urinary retention Sultana in place Continue tamsulosin Full Code DVT Prophylaxis: Pneumatic compression due to impending surgical procedure, lovenox Quality Stroke Does the patient have a stroke diagnosis?: No VTE Prior VTE?: No VTE Risk Level:: Medical - moderate - high VTE Device Contraindication: N/A - Device Ordered VTE Drug Contraindication: Treatment Not Indicated
--- NOTE | 2024-08-06 08:42 | PC.NURSE ---
Patient arrived to preop. Right chest portacath in place, previously accessed from floor. Dressing clean dry and intact. Site flushed well with no issues, positive blood return.
--- NOTE | 2024-08-06 09:11 | HO.ANESPROP2 ---
HPI - Anesthesia Eval Anesthesia Pre-Procedure Meds Is the patient on any of the following meds?: GLP1/DPP4 If yes to any meds - educate patient: Pt education - increased risk of aspiration and/or euvolemic DKA and Pt education - possibility of cancelled proc at provider's discretion PMFSH Active Problems Active Problems: All Active Problems Displaced fracture of right femoral neck (Acute) Femoral neck fracture (Acute) COVID-19 (Acute) Recurrent UTI (urinary tract infection) (Acute) Edema (Acute) Urinary retention with incomplete bladder emptying (Acute) Colon cancer metastasized to liver (Chronic) Colon adenocarcinoma (Acute) Enlarged prostate (Acute) Bile duct stricture (Acute) Liver lesion (Acute) Low platelet count (Acute) Fatty liver (Acute) PAD (peripheral artery disease) (Acute) Decreased dorsalis pedis pulse (Acute) Daytime sleepiness (Acute) Right leg weakness (Acute) Right hand weakness (Acute) Polycythemia (Acute) Ataxia (Acute) Elevated hemoglobin (Acute) Weakness (Acute) Screening PSA (prostate specific antigen) (Acute) Skin lesion (Acute) Elevated alkaline phosphatase level (Acute) Screening for tuberculosis (Acute) Immunizations incomplete (Acute) Restless leg (Acute) Screening PSA (prostate specific antigen) (Acute) Physical exam (Acute) Proteinuria (Acute) Type 2 diabetes mellitus with other diabetic kidney complication (Acute) Abnormal EKG (Acute) Murmur (Acute) Pre-op evaluation (Acute) Screening PSA (prostate specific antigen) (Acute) Physical exam (Acute) Type 2 diabetes mellitus with hyperglycemia, with long-term current use of insulin (Acute) Obstructive sleep apnea (Acute) Family history of pancreatic cancer (Acute) Elevated alkaline phosphatase level (Acute) CKD (chronic kidney disease) stage 2, GFR 60-89 ml/min (Acute) Type 2 diabetes mellitus with diabetic polyneuropathy (Acute) Hypertension (Acute) Dyslipidemia (Acute) Obesity (BMI 30.0-34.9) (Acute) Neuropathy (Acute) Diabetes mellitus (Acute) Past Medical History Medical History (Updated 08/06/24 @ 08:19 by Marti Hodges RN) History of chemotherapy Stroke Ulnar neuropathy at elbow Sleep apnea Acute embolic stroke Xerosis cutis CKD (chronic kidney disease) stage 2, GFR 60-89 ml/min Persistent proteinuria Hypertensive nephrosclerosis Elevated alkaline phosphatase level Cataract Fuchs' corneal dystrophy Colon cancer RLS (restless legs syndrome) Obesity (BMI 30.0-34.9) Dyslipidemia Type 2 diabetes mellitus with diabetic polyneuropathy Hypertension Neuropathy Diabetes mellitus Erectile dysfunction Family History Family History Mother History of pancreatic cancer Father No problems noted. Brother Diabetes Maternal Grandmother Diabetes Family history of problems with anesthesia: No Surgical History Surgical History History of esophagogastroduodenoscopy (EGD) Hx of left cataract extraction Hx of cornea transplant History of colonoscopy (~03/15/19) History of colon resection (~04/20/19) History of Problems with Anesthesia: No Social History Social History Household Members: None Housing: Condominium Housing Other:: REHAB Are you a primary clinical care coordinator to a significant other at home: No Do you presently have visiting nurse or other home services: No Alcohol intake: never Comment: currently in rehab and bedbound Patient Tobacco Use Status: Never used Tobacco Smoked in Last 30 Days: No e-Cigarette/Vaping Use: Never Used Second Hand Smoke Exposure: No Use of substances other than those prescribed or required for medical reasons: No Currently Displaying Signs/Symptoms of Drug Intoxication Withdrawal: No Have you been hit, kicked, punched, or otherwise hurt by someone within the past year? If so, by whom?: No Do you feel safe in your current relationship?: No Current Relationship Is there a partner from a previous relationship who is making you feel unsafe now?: No Are you made to feel afraid or neglected: No Are you DNR?: No Advance Directives: Yes Advance Directives Information Provided: Yes Advance Directives on File: Yes Advance Directives Date on File: 04/16/19 Do you have a plan to hurt others: No Plan Recently lost weight without trying: Yes How much weight loss: 14-23 pounds Eating poorly because of decreased appetite: No Nutrition screen score: 4 Nutrition Risks: No Nutritional Risk Poor oral hygiene: No service: No Current occupational status: retired Cognitive needs: No Hearing needs: No Vision needs: No Meds Allergies Allergy/AdvReac Type Severity Reaction Status Date / Time No Known Allergies Allergy Verified 08/06/24 08:20 [No Known Allergies*] Active Medications: Current Medications Acetaminophen (Acetaminophen 325 Mg Tablet) 650 mg PO Q6H PRN PRN Reason: Pain, Mild (Pain Scale 1-3), fever or headache Atorvastatin Calcium (Atorvastatin Calcium 40 Mg Tablet) 40 mg PO DAILY [facility] Last Admin: 08/06/24 08:05 Dose: Not Given Benzonatate (Benzonatate 100 Mg Capsule) 100 mg PO TID PRN PRN Reason: Cough Bethanechol Chloride (Bethanechol Chloride 25 Mg Tablet) 50 mg PO BID [facility] Last Admin: 08/06/24 08:05 Dose: Not Given Bisacodyl (Bisacodyl 10 Mg Supp.Rect) 10 mg SC DAILY PRN PRN Reason: Constipation Calcium Carbonate (Calcium Carbonate 750 Mg Tab.Chew) 750 mg PO Q4H PRN PRN Reason: Heartburn Glucose (Glucose Gel 15 Gm Gel..Gram.) 15 gm PO Q15M PRN; Protocol PRN Reason: per Hypoglycemia Standing Ord. Dextrose (D10) 250 mls @ 750 mls/hr IV Q15M PRN; Protocol PRN Reason: per Hypoglycemia Standing Ord. Last Infusion: 08/05/24 07:59 Dose: Infused Dextrose/Lactated Ringer's (D5lr) 1,000 mls @ 80 mls/hr IVCONT .[id number] [facility] Last Admin: 08/05/24 20:10 Dose: 80 mls/hr Insulin Human Lispro (Insulin Lispro 100 Unit/Ml 3 Ml Vial) 0 unit SUBCUT QIDACHS [facility]; Protocol Last Admin: 08/06/24 07:16 Dose: Not Given Lisinopril (Lisinopril 20 Mg Tablet) 20 mg PO DAILY [facility]; Protocol Last Admin: 08/06/24 08:05 Dose: Not Given Magnesium Hydroxide (Milk Of Magnesia 30 Ml Oral.Susp) 30 ml PO DAILY PRN PRN Reason: Constipation Magnesium Hydroxide (Milk Of Magnesia 30 Ml Oral.Susp) 30 ml PO DAILY PRN PRN Reason: Constipation Melatonin (Melatonin 3 Mg Tablet) 6 mg PO BEDTIME PRN PRN Reason: Insomnia Morphine Sulfate (Morphine Sulfate 4 Mg/Ml Cartridge) 4 mg IVPUSH Q4H PRN; Protocol PRN Reason: Pain, Severe (Pain Scale 7-10) Last Admin: 08/06/24 05:45 Dose: 4 mg Multivitamins/Vitamin C (Multivitamin Tablet) 1 tab PO DAILY [facility] Last Admin: 08/06/24 08:05 Dose: Not Given Omeprazole (Omeprazole 20 Mg Capsule.Dr) 20 mg PO DAILY@0630 [facility] Last Admin: 08/06/24 05:45 Dose: 20 mg Ondansetron HCl (Ondansetron Hcl 4 Mg/2 Ml Vial) 4 mg IVPUSH Q8H PRN PRN Reason: Nausea and Vomiting Pioglitazone HCl (Pioglitazone Hcl 30 Mg Tablet) 30 mg PO DAILY [facility] Last Admin: 08/06/24 08:05 Dose: Not Given Sodium Biphosphate/Sodium Phosphate (Sodium Phosphate,[place]-Dibasic 133 Ml Enema) 118 ml SC DAILY PRN PRN Reason: Constipation Sodium Chloride (0.9 % Sodium Chloride Flush 3 Ml Syringe) 3 ml IVFLUSH QSHIFT [facility] Last Admin: 08/06/24 07:16 Dose: Not Given Tamsulosin HCl (Tamsulosin Hcl 0.4 Mg Capsule) 0.4 mg PO BEDTIME [facility] Last Admin: 08/05/24 20:07 Dose: 0.4 mg Home Medications ?Medication ?Instructions ?Recorded ?Confirmed ?Last Taken ?Type blood sugar diagnostic #10 ea 07/28/20 05/19/24 Unknown History pioglitazone 30 mg tablet (Actos) 30 mg PO DAILY 08/13/23 08/04/24 08/04/24 History multivitamin 1 tab PO DAILY 10/29/23 08/04/24 08/04/24 History empagliflozin 25 mg tablet 25 mg PO DAILY 07/12/24 08/04/24 08/04/24 History (Jardiance) insulin degludec 100 unit/mL (3 38 unit subcut DAILY 07/12/24 08/04/24 08/04/24 History mL) subcutaneous pen (Tresiba FlexTouch U-100 insulin) lisinopril 20 mg tablet 20 mg PO DAILY 07/12/24 08/04/24 08/04/24 History metformin 1,000 mg tablet 1,000 mg PO BID 07/12/24 08/04/24 08/04/24 History insulin lispro 100 unit/mL 12 unit subcut DAILY@1200 07/13/24 08/04/24 08/04/24 History subcutaneous pen (Humalog KwikPen (U-100) Insulin) insulin lispro 100 unit/mL 14 unit subcut DAILY@1730 07/13/24 08/04/24 08/04/24 History subcutaneous pen (Humalog KwikPen (U-100) Insulin) tamsulosin 0.4 mg capsule 0.4 mg PO BEDTIME 07/13/24 08/04/24 08/03/24 History acetaminophen 500 mg tablet 500 mg PO TID 08/04/24 08/04/24 08/04/24 History bisacodyl 10 mg rectal suppository 10 mg SC DAILY PRN Constipation 08/04/24 08/04/24 Unknown History dextrose 40 % oral gel (Glucose 15 g PO Q15M PRN Hyproglycemia 08/04/24 08/04/24 Unknown History Gel) glucagon 1 mg solution for 1 mg subcut Q15M PRN Hypoglycemia 08/04/24 08/04/24 Unknown History injection lidocaine 4 % topical patch 1 patch topical BID 08/04/24 08/04/24 08/04/24 History magnesium hydroxide 400 mg/5 mL 30 ml PO DAILY PRN Constipation 08/04/24 08/04/24 Unknown History oral suspension (Milk of Magnesia) nystatin 100,000 unit/mL oral 5 ml PO TID 08/04/24 08/04/24 08/04/24 History suspension oxycodone 5 mg tablet 5 mg PO DAILY@0600 08/04/24 08/04/24 08/04/24 11:00 History pantoprazole 40 mg tablet,delayed 40 mg PO DAILY@0630 08/04/24 08/04/24 08/04/24 History release sodium phosphates 19 gram-7 118 ml SC DAILY PRN Constipation 08/04/24 08/04/24 Unknown History gram/118 mL enema (Fleet Enema) Exam Height,Weight and Vital Signs: Height 5 ft 10 in Weight 73.9 kg Last Vital Signs Temp 99.1 F 08/06/24 08:24 Pulse 82 08/06/24 08:24 Resp 16 08/06/24 08:24 BP 128/70 08/06/24 08:24 Pulse Ox 96 08/06/24 08:24 O2 Del Method Room Air 08/06/24 08:24 Pertinent Lab Results Pertinent Lab Results: Laboratory Tests 08/04/24 08/04/24 08/04/24 15:39 16:50 19:45 WBC 5.3 RBC 4.88 Hgb 15.1 Hct 44.7 MCV 91.6 MCH 30.9 MCHC 33.8 RDW 15.4 Plt Count 101 L D MPV 11.4 Immature Gran % (Auto) 0.6 H Neut % (Auto) 73.7 H Lymph % (Auto) 12.2 L [place] % (Auto) 11.6 H Eos % (Auto) 1.3 Baso % (Auto) 0.6 Lymph # (Auto) 0.7 L [place] # (Auto) 0.6 Eos # (Auto) 0.1 Baso # (Auto) 0.0 Abs Immat Gran (auto) 0.03 Absolute Neuts (auto) 3.9 Absolute Nucleated RBC 0.000 Nucleated RBC % (auto) 0.0 PT 12.6 H INR 1.1 APTT 32.1 Hold Blue Top SEE NOTE Sodium 137 Potassium 4.8 Chloride 105 Carbon Dioxide 20 L Anion Gap 17 BUN 25 H Creatinine 0.92 Estim Creat Clear Calc 76.0 Estimated GFR > 60 POC Glucose 122 H Random Glucose 110 Calcium 9.4 Magnesium 2.0 Total Bilirubin 0.6 AST 35 ALT 19 Alkaline Phosphatase 183 H Total Protein 6.5 Albumin 3.4 L Hold Yellow Top 08/05/24 08/05/24 08/05/24 07:24 07:54 11:02 WBC RBC Hgb Hct MCV MCH MCHC RDW Plt Count MPV Immature Gran % (Auto) Neut % (Auto) Lymph % (Auto) [place] % (Auto) Eos % (Auto) Baso % (Auto) Lymph # (Auto) [place] # (Auto) Eos # (Auto) Baso # (Auto) Abs Immat Gran (auto) Absolute Neuts (auto) Absolute Nucleated RBC Nucleated RBC % (auto) PT INR APTT Hold Blue Top Sodium Potassium Chloride Carbon Dioxide Anion Gap BUN Creatinine Estim Creat Clear Calc Estimated GFR POC Glucose 56 L* 158 H 79 Random Glucose Calcium Magnesium Total Bilirubin AST ALT Alkaline Phosphatase Total Protein Albumin Hold Yellow Top 08/05/24 08/05/24 08/06/24 16:08 20:15 06:11 WBC 5.9 RBC 4.46 L Hgb 13.7 L Hct 40.8 L MCV 91.5 MCH 30.7 MCHC 33.6 RDW 15.5 Plt Count 85 L MPV 10.9 Immature Gran % (Auto) Neut % (Auto) Lymph % (Auto) [place] % (Auto) Eos % (Auto) Baso % (Auto) Lymph # (Auto) [place] # (Auto) Eos # (Auto) Baso # (Auto) Abs Immat Gran (auto) Absolute Neuts (auto) Absolute Nucleated RBC 0.000 Nucleated RBC % (auto) 0.0 PT INR APTT Hold Blue Top Sodium 136 Potassium 4.2 Chloride 104 Carbon Dioxide 23 Anion Gap 13 BUN 16 Creatinine 0.61 Estim Creat Clear Calc 114.6 Estimated GFR > 60 POC Glucose 121 H 176 H Random Glucose 117 H Calcium 8.7 D Magnesium Total Bilirubin AST ALT Alkaline Phosphatase Total Protein Albumin Hold Yellow Top See Note 08/06/24 07:08 WBC RBC Hgb Hct MCV MCH MCHC RDW Plt Count MPV Immature Gran % (Auto) Neut % (Auto) Lymph % (Auto) [place] % (Auto) Eos % (Auto) Baso % (Auto) Lymph # (Auto) [place] # (Auto) Eos # (Auto) Baso # (Auto) Abs Immat Gran (auto) Absolute Neuts (auto) Absolute Nucleated RBC Nucleated RBC % (auto) PT INR APTT Hold Blue Top Sodium Potassium Chloride Carbon Dioxide Anion Gap BUN Creatinine Estim Creat Clear Calc Estimated GFR POC Glucose 136 H Random Glucose Calcium Magnesium Total Bilirubin AST ALT Alkaline Phosphatase Total Protein Albumin Hold Yellow Top Airway Mallampati Class: II TM Dist: >3cm Neck ROM: Full Heart: rrr Lungs: cta Assessment and Plan Assessment Anesthesia Assessment: Anesthesia Plan Discussed and Chart Reviewed Final Anesthetic Review Family History of Problems with Anesthesia: No History of Problems with Anesthesia: No NPO: Yes ASA Class: III and Emergency (patient took jardiance 2 days ago, increased risk for aspiration ) Final Preanesthetic Review: No Changes in Pt Med Stat, Meds/Allgs Chart Reviewed and Consent Obtained/Reviewed Patient Risk: Intermediate Procedure Risk: Intermediate Anesthetic Plan Anesthetic Plan: GA Disposition: Standard PACU
--- NOTE | 2024-08-06 09:13 | MHC.SHP ---
Pre-Procedural Eval Section A - 24 Hr Update-Section A only Date of Service: 08/06/24 The patient is an INPATIENT: Yes Changes since office visit: No Cold of Flu in the past 2 weeks, No New Medical Problems, No Changes in Medication and No Patient answered all questions The patient has been examined within 24 hours of the surgical procedure. The History & Physical has been completed within 30 days and I have reviewed it.: Yes Section B - Complete if H&P > 30 days Chief Complaint: Right hip fracture Allergies: Allergies Allergy/AdvReac Type Severity Reaction Status Date / Time No Known Allergies Allergy Verified 08/06/24 08:20 [No Known Allergies*] Plan I have reviewed the history and physical and performed a pertinent physical examination on my patient. No changes have occurred unless specified. Time Spent With Patient Time: Total time managing care of this patient today ____ minutes.
--- NOTE | 2024-08-06 10:55 | PM.OP ---
Brief Operative Note Date of Service: 08/06/24 Pre-op diagnosis: Right femoral neck fracture Post-op diagnosis: same Procedure: Right hip mikey Implants: Giovanny acvcolade C # 5 [phone] with +0/46 bipolar Surgeon: Hugo Montana MD Anesthesia: GETA and local Was an [place] Department Supervisor used for this Procedure?: No Estimated blood loss (mL): 100 IV fluids (mL): 750 Pathology: other Condition: stable Disposition: PACU
--- NOTE | 2024-08-06 11:05 | MHC.CLN ---
F/U CURRENTLY NPO FOR HIP SURGERY. HAS DX COLON CANCER WITH LIVER METS. HAS STAGE II PRESSURE INJURY TO RIGHT BUTTOCK. PRIOR DIET DM 1200 KCALS. WHEN ABLE TO RESUME DIET, RECOMMEND LIBERALIZE TO REGULAR TO PROMOTE PO INTAKE. ADD ENSURE MAX PROTEIN BID TO PROMOTE WOUND HEALING. SUPPLEMENT PROVIDES 300 KCALS, 60 G PROTEIN. FOLLOW FOR DIET ADVANCEMENT AND SKIN INTEGRITY.
--- NOTE | 2024-08-06 12:33 | MHC.CM.PN ---
EMR REVIEWED AND PER MD ROUNDS, PT WILL HAVE SURGERY TODAY TO REPAIR RIGHT HIP FX. BROTHER/HCP KILO CALLED FOR UPDATE, CM RETURNED CALL AND LEFT MESSAGE. CM WILL CONTINUE TO FOLLOW FOR ANY CHANGE TO DC PLAN/NEEDS.
[2024-08-06 12:39] LABS: Glucose, Whole Blood 178 mg/dL (60-115)
[2024-08-06] MEDS: Insulin Lispro 100 UNIT/ML 3 ML VIAL SUBCUT ×3 (12:57→20:23)
[2024-08-06 16:23] LABS: Glucose, Whole Blood 214 mg/dL (60-115)
[2024-08-06 20:03] LABS: Glucose, Whole Blood 262 mg/dL (60-115)
[2024-08-06] MEDS: Bethanechol Chloride 25 MG TABLET 50 MG PO (20:22)
[2024-08-06] MEDS: Tamsulosin HCL 0.4 MG CAPSULE PO (20:22)
[2024-08-07] VITALS (9 sets, daily range): BP systolic 104–123; BP diastolic 53–64; PULSE 73–92; RESP 16–20; TEMP 36.1–37.1; O2SAT 93–95
[2024-08-07] MEDS: Dextrose 5 % and Lactated Ring 1,000 ML 80 ML IVCONT (01:05)
[2024-08-07] MEDS: Morphine Sulfate 4 MG/ML CARTRIDGE IVPUSH ×3 (02:02→22:44)
[2024-08-07] MEDS: Omeprazole 20 MG CAPSULE.DR PO (05:35)
[2024-08-07] MEDS: Enoxaparin Sodium 40 MG/0.4 ML SYRINGE SUBCUT (05:35)
[2024-08-07 07:08] LABS: Hematocrit 36.8 % (42.0-52.0); Hemoglobin 12.4 g/dl (14.0-18.0); Mean Corpuscular HGB Conc 33.7 g/dl (31.0-36.0); Mean Corpuscular Hemoglobin 30.9 pg (27.0-33.0); Mean Corpuscular Volume 91.8 fL (80.0-98.0); Mean Platelet Volume 11.4 fL (9.4-12.4); Platelet Count 104 X10*3/uL (160-400); Red Blood Count 4.01 X10*6/uL (4.60-5.80); Red Cell Distribution Width 15.2 % (11.0-16.0); White Blood Count 7.5 X10*3/uL (4.8-10.8)
[2024-08-07 07:34] LABS: Anion Gap 15 (12-20); Blood Urea Nitrogen 20 mg/dL (9-16); Calcium 8.5 mg/dL (8.4-10.2); Carbon Dioxide 21 mmol/L (22-29); Chloride 106 mmol/L (96-108); Creatinine Clr Calc Pharmacy 79.4; Estimated Glomerular Filt Rate > 60; Glucose Random 205 mg/dL (60-115); Potassium 4.5 mmol/L (3.3-5.1); Sodium 137 mmol/L (135-145)
[2024-08-07 07:58] LABS: Glucose, Whole Blood 281 mg/dL (60-115)
--- NOTE | 2024-08-07 07:59 | PM.PNORT ---
Subjective Subjective Date of Service: 08/07/24 Interval history: POD1 s/p rt hip mikey Patient is resting in bed comfortably No overnight events Pain is managed No additional complaints Physical Exam Vital Signs: Vital Signs: Last Vital Signs Temp 98.4 F 08/07/24 07:50 Pulse 86 08/07/24 07:50 Resp 18 08/07/24 07:50 BP 123/59 L 08/07/24 07:50 Pulse Ox 94 08/07/24 07:50 O2 Del Method Room Air 08/07/24 07:50 O2 Flow Rate 2 08/06/24 15:07 BMI result Body Mass Index 23.4 Const: General: cooperative, healthy appearing and no acute distress Resp: Effort & Inspection: normal respiratory effort and able to speak in complete sentences Cardio: Rate: regular rate Peripheral pulses: Peripheral pulses 2+ throughout GI: Palpation (GI): Soft to palpation Skin: Lesions: no lesions Rashes: no rashes Extrem: Other: right hip dressing is c/d/i. Able to dorsi/plantar flex. Calf is supple and nontender. Sensation intact. Pedal pulse intact. Procedures Date of Service Date of Service: 08/07/24 Progress Note: A&P Assessment and plan (1) Displaced fracture of right femoral neck: Status: Acute (2) Femoral neck fracture: Status: Acute Plan Continue pain mgmnt Begin Lovenox for dvt ppx begin PT/OT for right hip mikey Dispo planning-Pending PT/OT eval, pain mgmnt, Medicine to manage platelets, CM to arrange rehab once medically cleared. Time Spent With Patient Time: Total time managing care of this patient today ____ minutes. Quality Stroke Does the patient have a stroke diagnosis?: No VTE Prior VTE?: No VTE Risk Level:: Medical - moderate - high VTE Device Contraindication: N/A - Device Ordered VTE Drug Contraindication: Treatment Not Indicated
[2024-08-07] MEDS: Insulin Lispro 100 UNIT/ML 3 ML VIAL SUBCUT ×4 (09:23→20:22)
[2024-08-07] MEDS: Multivitamin TABLET 1 TAB PO (09:24)
[2024-08-07] MEDS: 0.9 % Sodium Chloride Flush 3 ML SYRINGE IVFLUSH ×2 (09:24→17:23)
[2024-08-07] MEDS: Atorvastatin Calcium 40 MG TABLET PO (09:25)
[2024-08-07] MEDS: Bethanechol Chloride 25 MG TABLET 50 MG PO ×2 (09:25→20:21)
[2024-08-07] MEDS: lisinopriL 20 MG TABLET PO (09:26)
[2024-08-07] MEDS: Pioglitazone HCL 30 MG TABLET PO (09:26)
--- NOTE | 2024-08-07 09:48 | HO.POSTANES ---
Post Anesthesia Evaluation Post Anesthesia Evaluation Date of Service: 08/07/24 Vital Signs: Vital Signs Temp Pulse Resp BP Pulse Ox O2 Del Method 08/07/24 09:26 104/56 L 08/07/24 07:50 98.4 F 86 18 123/59 L 94 Room Air 08/07/24 02:46 97.3 F 86 16 110/61 93 Room Air 08/06/24 23:35 97.1 F 82 16 110/57 L 95 Room Air Anesthesia: General LMA Mental Status: Awake Pain Control: Satisfactory Nausea/Vomiting: None Hydration: Adequate Anesthesia-Related Issues: No Anes. Related Issues
[2024-08-07 11:39] LABS: Glucose, Whole Blood 224 mg/dL (60-115)
[2024-08-07] MEDS: Empagliflozin 10 MG TABLET PO (12:15)
[2024-08-07] MEDS: Insulin Glargine,Hum.rec.anlog 100 UNIT/ML 10 ML VIAL 20 UNIT SUBCUT (12:24)
[2024-08-07 16:24] LABS: Glucose, Whole Blood 188 mg/dL (60-115)
[2024-08-07 20:03] LABS: Glucose, Whole Blood 197 mg/dL (60-115)
[2024-08-07] MEDS: Tamsulosin HCL 0.4 MG CAPSULE PO (20:21)
[2024-08-07] MEDS: Acetaminophen 325 MG TABLET 650 MG PO (20:26)
[2024-08-08] VITALS (8 sets, daily range): BP systolic 94–119; BP diastolic 52–75; PULSE 84–93; RESP 16–20; TEMP 36.3–36.6; O2SAT 92–95
[2024-08-08] MEDS: Enoxaparin Sodium 40 MG/0.4 ML SYRINGE SUBCUT (05:49)
[2024-08-08] MEDS: Omeprazole 20 MG CAPSULE.DR PO (05:49)
[2024-08-08 06:37] LABS: Hematocrit 34.9 % (42.0-52.0); Hemoglobin 11.6 g/dl (14.0-18.0); Mean Corpuscular HGB Conc 33.2 g/dl (31.0-36.0); Mean Corpuscular Hemoglobin 30.6 pg (27.0-33.0); Mean Corpuscular Volume 92.1 fL (80.0-98.0); Mean Platelet Volume 11.3 fL (9.4-12.4); Red Blood Count 3.79 X10*6/uL (4.60-5.80); Red Cell Distribution Width 15.3 % (11.0-16.0); White Blood Count 5.3 X10*3/uL (4.8-10.8)
[2024-08-08 06:39] LABS: Platelet Count 88 X10*3/uL (160-400)
[2024-08-08 06:51] LABS: Anion Gap 14 (12-20); Blood Urea Nitrogen 22 mg/dL (9-16); Calcium 8.6 mg/dL (8.4-10.2); Carbon Dioxide 25 mmol/L (22-29); Chloride 105 mmol/L (96-108); Creatinine Clr Calc Pharmacy 105.9; Estimated Glomerular Filt Rate > 60; Glucose Random 91 mg/dL (60-115); Potassium 4.2 mmol/L (3.3-5.1); Sodium 140 mmol/L (135-145)
[2024-08-08 07:49] LABS: Glucose, Whole Blood 96 mg/dL (60-115)
[2024-08-08] MEDS: Insulin Glargine,Hum.rec.anlog 100 UNIT/ML 10 ML VIAL 20 UNIT SUBCUT (08:21)
[2024-08-08] MEDS: Atorvastatin Calcium 40 MG TABLET PO (08:22)
[2024-08-08] MEDS: Empagliflozin 10 MG TABLET PO (08:22)
[2024-08-08] MEDS: 0.9 % Sodium Chloride Flush 3 ML SYRINGE IVFLUSH ×2 (08:22→16:38)
[2024-08-08] MEDS: lisinopriL 20 MG TABLET PO (08:22)
[2024-08-08] MEDS: Pioglitazone HCL 30 MG TABLET PO (08:22)
[2024-08-08] MEDS: Bethanechol Chloride 25 MG TABLET 50 MG PO ×2 (08:22→20:33)
[2024-08-08] MEDS: Multivitamin TABLET 1 TAB PO (08:22)
[2024-08-08] MEDS: Acetaminophen 325 MG TABLET 650 MG PO (09:39)
--- NOTE | 2024-08-08 09:41 | P.PNIM_ITS ---
Subjective Subjective Date of Service: 08/08/24 Interval History: f/u on right hip fracture hip surgery done 08/06 pain is reasonably controlled Physical Exam 2 Vital Signs: Vital Signs: Last Vital Signs Temp 97.5 F 08/08/24 07:33 Pulse 93 08/08/24 07:33 Resp 16 08/08/24 07:33 BP 109/56 L 08/08/24 08:22 Pulse Ox 94 08/08/24 07:33 O2 Del Method Room Air 08/08/24 07:33 O2 Flow Rate 2 08/06/24 15:07 BMI result Body Mass Index 23.4 Const: Other: General: AO X 3, no acute distress Resp: CTA bilateral CVS: S1,S2,RRR GI: +BS, NT, no distention Skin: No rash, hip dressing in place, no hematoma Neuro: motor grossly intact Psych: appropriate affect Objective Data Active Medications Acetaminophen (Acetaminophen 325 Mg Tablet) 650 mg PO Q6H PRN PRN Reason: Pain, Mild (Pain Scale 1-3), fever or headache Last Admin: 08/08/24 09:39 Dose: 650 mg Documented By: VENTURA Atorvastatin Calcium (Atorvastatin Calcium 40 Mg Tablet) 40 mg PO DAILY [facility] Last Admin: 08/08/24 08:22 Dose: 40 mg Documented By: VENTURA Benzonatate (Benzonatate 100 Mg Capsule) 100 mg PO TID PRN PRN Reason: Cough Bethanechol Chloride (Bethanechol Chloride 25 Mg Tablet) 50 mg PO BID [facility] Last Admin: 08/08/24 08:22 Dose: 50 mg Documented By: VENTURA Bisacodyl (Bisacodyl 10 Mg Supp.Rect) 10 mg [place] DAILY PRN PRN Reason: Constipation Calcium Carbonate (Calcium Carbonate 750 Mg Tab.Chew) 750 mg PO Q4H PRN PRN Reason: Heartburn Empagliflozin (Empagliflozin 10 Mg Tablet) 10 mg PO DAILY [facility] Last Admin: 08/08/24 08:22 Dose: 10 mg Documented By: VENTURA Enoxaparin Sodium (Enoxaparin Sodium 40 Mg/0.4 Ml Syringe) 40 mg SUBCUT Q24H [facility] Last Admin: 08/08/24 05:49 Dose: 40 mg Documented By: JOLEEN Glucose (Glucose Gel 15 Gm Gel..Gram.) 15 gm PO Q15M PRN; Protocol PRN Reason: per Hypoglycemia Standing Ord. Dextrose (D10) 250 mls @ 750 mls/hr IV Q15M PRN; Protocol PRN Reason: per Hypoglycemia Standing Ord. Last Infusion: 08/05/24 07:59 Dose: Infused Documented By: VITALIY Cefazolin Sodium/Dextrose (Ancef) 2 gm in 50 mls @ 100 mls/hr IV POSTOP RADHA Insulin Glargine (Insulin Glargine,Hum.Rec.Anlog 100 Unit/Ml 10 Ml Vial) 20 unit SUBCUT DAILY [facility] Last Admin: 08/08/24 08:21 Dose: 20 unit Documented By: VENTURA Insulin Human Lispro (Insulin Lispro 100 Unit/Ml 3 Ml Vial) 0 unit SUBCUT QIDACHS [facility]; Protocol Last Admin: 08/08/24 07:50 Dose: Not Given Documented By: VENTURA Non-Admin Reason: No Insulin Coverage Lisinopril (Lisinopril 20 Mg Tablet) 20 mg PO DAILY [facility]; Protocol Last Admin: 08/08/24 08:22 Dose: 20 mg Documented By: VENTURA Magnesium Hydroxide (Milk Of Magnesia 30 Ml Oral.Susp) 30 ml PO DAILY PRN PRN Reason: Constipation Magnesium Hydroxide (Milk Of Magnesia 30 Ml Oral.Susp) 30 ml PO DAILY PRN PRN Reason: Constipation Melatonin (Melatonin 3 Mg Tablet) 6 mg PO BEDTIME PRN PRN Reason: Insomnia Morphine Sulfate (Morphine Sulfate 4 Mg/Ml Cartridge) 4 mg IVPUSH Q4H PRN; Protocol PRN Reason: Pain, Severe (Pain Scale 7-10) Last Admin: 08/07/24 22:44 Dose: 4 mg Documented By: JOLEEN Multivitamins/Vitamin C (Multivitamin Tablet) 1 tab PO DAILY [facility] Last Admin: 08/08/24 08:22 Dose: 1 tab Documented By: VENTURA Omeprazole (Omeprazole 20 Mg Capsule.Dr) 20 mg PO DAILY@0630 [facility] Last Admin: 08/08/24 05:49 Dose: 20 mg Documented By: JOLEEN Ondansetron HCl (Ondansetron Hcl 4 Mg/2 Ml Vial) 4 mg IVPUSH Q8H PRN PRN Reason: Nausea and Vomiting Pioglitazone HCl (Pioglitazone Hcl 30 Mg Tablet) 30 mg PO DAILY [facility] Last Admin: 08/08/24 08:22 Dose: 30 mg Documented By: VENTURA Sodium Biphosphate/Sodium Phosphate (Sodium Phosphate,[place]-Dibasic 133 Ml Enema) 118 ml [place] DAILY PRN PRN Reason: Constipation Sodium Chloride (0.9 % Sodium Chloride Flush 3 Ml Syringe) 3 ml IVFLUSH QSHIFT [facility] Last Admin: 08/08/24 08:22 Dose: 3 ml Documented By: VENTURA Tamsulosin HCl (Tamsulosin Hcl 0.4 Mg Capsule) 0.4 mg PO BEDTIME [facility] Last Admin: 08/07/24 20:21 Dose: 0.4 mg Documented By: ODRISM Labs 08/08/24 05:48 08/08/24 05:48 Labs: Laboratory Results - last 24 hr 08/07/24 08/07/24 08/07/24 11:31 16:20 19:55 MCV MCH MCHC RDW Plt Count MPV Absolute Nucleated RBC Nucleated RBC % (auto) Anion Gap Estim Creat Clear Calc Estimated GFR POC Glucose 224 H 188 H 197 H Random Glucose Calcium 08/08/24 08/08/24 05:48 07:36 MCV 92.1 MCH 30.6 MCHC 33.2 RDW 15.3 Plt Count 88 L MPV 11.3 Absolute Nucleated RBC 0.000 Nucleated RBC % (auto) 0.0 Anion Gap 14 Estim Creat Clear Calc 105.9 Estimated GFR > 60 POC Glucose 96 Random Glucose 91 Calcium 8.6 Assessment and Plan (1) Femoral neck fracture: Status: Acute Plan 69/m with 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 Tolbert who presents to the ED after outpatient x-ray showed right hip fracture. Right hip displaced fracture suspect pathologic fracture vs injury from fall on 07/12 s/p operative repair on 08/06, doing well dvt prophylaxis with lovenox morphine and oxycodone for pain PT/OT eval Abnormal UA UA not entirely consistent with acute UTI Patient with history of recurrent UTIs Patient asymptomatic, will hold on antibiotics for now Metastatic colon cancer to the liver Outpatient follow up with oncology for chemo after dc Heme/Onc consult (Dr. Tolbert) Insulin-dependent type 2 diabetes hypoglycemia resume lantus at 20 units, acotos, and Jardianced at 10 mg, hold metformin, SSI and diabetic diet Mild metabolic acidosis-resolved, especially in light of jardiance use (can cause euglycemic dka) HTN--BP on low side, hold lisinopril CVA/HLD Continue statin Urinary retention Sultana in place Continue tamsulosin Full Code DVT Prophylaxis: Pneumatic compression due to impending surgical procedure, lovenox Quality Stroke Does the patient have a stroke diagnosis?: No VTE Prior VTE?: No VTE Risk Level:: Medical - moderate - high VTE Device Contraindication: N/A - Device Ordered VTE Drug Contraindication: Treatment Not Indicated
--- NOTE | 2024-08-08 10:08 | PM.EVENT ---
Event Note Date of Service: 08/08/24 Event Note: Spoke with Hermila Ho RN who is taking care of the patient this morning. Patient is s/p POD2 rt hip mikey. Patient reporting mild pain in the right hip, controlled with po meds. No overnight events. Eager to work with P.T. tomorrow. Overall doing very well. Platelets this morning at 88. This was communicated to the RN who will reach out to medicine to notify them. Time Spent With Patient Time: Total time managing care of this patient today ____ minutes.
[2024-08-08 11:39] LABS: Glucose, Whole Blood 112 mg/dL (60-115)
[2024-08-08] MEDS: Morphine Sulfate 4 MG/ML CARTRIDGE 2 MG IVPUSH ×2 (12:05→20:33)
[2024-08-08 16:09] LABS: Glucose, Whole Blood 171 mg/dL (60-115)
[2024-08-08] MEDS: Insulin Lispro 100 UNIT/ML 3 ML VIAL SUBCUT (16:39)
[2024-08-08] MEDS: oxyCODONE HCl Immed Release 5 MG TABLET PO (16:39)
[2024-08-08] MEDS: Tamsulosin HCL 0.4 MG CAPSULE PO (20:33)
[2024-08-08 20:44] LABS: Glucose, Whole Blood 146 mg/dL (60-115)
[2024-08-09] VITALS (10 sets, daily range): BP systolic 99–127; BP diastolic 48–62; PULSE 78–90; RESP 14–20; TEMP 35.9–37.1; O2SAT 94–98
[2024-08-09] MEDS: oxyCODONE HCl Immed Release 5 MG TABLET PO ×3 (00:58→20:04)
[2024-08-09] MEDS: Enoxaparin Sodium 40 MG/0.4 ML SYRINGE SUBCUT (05:18)
[2024-08-09] MEDS: Omeprazole 20 MG CAPSULE.DR PO (06:22)
[2024-08-09 07:35] LABS: Glucose, Whole Blood 111 mg/dL (60-115)
[2024-08-09] MEDS: Morphine Sulfate 4 MG/ML CARTRIDGE 2 MG IVPUSH ×3 (07:59→21:53)
[2024-08-09] MEDS: Insulin Glargine,Hum.rec.anlog 100 UNIT/ML 10 ML VIAL 20 UNIT SUBCUT (08:01)
[2024-08-09] MEDS: Empagliflozin 10 MG TABLET PO (08:02)
[2024-08-09] MEDS: Pioglitazone HCL 30 MG TABLET PO (08:02)
[2024-08-09] MEDS: Atorvastatin Calcium 40 MG TABLET PO (08:02)
[2024-08-09] MEDS: Multivitamin TABLET 1 TAB PO (08:02)
[2024-08-09] MEDS: lisinopriL 20 MG TABLET PO (08:02)
[2024-08-09] MEDS: Bethanechol Chloride 25 MG TABLET 50 MG PO ×2 (08:02→20:04)
[2024-08-09] MEDS: 0.9 % Sodium Chloride Flush 3 ML SYRINGE IVFLUSH ×2 (08:05→17:59)
[2024-08-09 09:57] LABS: Hematocrit 35.1 % (42.0-52.0); Hemoglobin 11.5 g/dl (14.0-18.0); Mean Corpuscular HGB Conc 32.8 g/dl (31.0-36.0); Mean Corpuscular Hemoglobin 30.2 pg (27.0-33.0); Mean Corpuscular Volume 92.1 fL (80.0-98.0); Mean Platelet Volume 11.8 fL (9.4-12.4); Platelet Count 112 X10*3/uL (160-400); Red Blood Count 3.81 X10*6/uL (4.60-5.80); Red Cell Distribution Width 15.3 % (11.0-16.0); White Blood Count 5.5 X10*3/uL (4.8-10.8)
[2024-08-09 10:06] LABS: Anion Gap 10 (12-20); Blood Urea Nitrogen 20 mg/dL (9-16); Calcium 8.5 mg/dL (8.4-10.2); Carbon Dioxide 23 mmol/L (22-29); Chloride 104 mmol/L (96-108); Creatinine Clr Calc Pharmacy 105.9; Estimated Glomerular Filt Rate > 60; Glucose Random 185 mg/dL (60-115); Potassium 3.9 mmol/L (3.3-5.1); Sodium 133 mmol/L (135-145)
--- NOTE | 2024-08-09 11:24 | MHC.CLN ---
F/U DIET=DIABETIC 1200 KCALS. PO INTAKE USUALLY 100%. INCREASING DIET TO DM 2000 KCALS TO BETTER MEET ESTIMATED NUTRITIONAL NEEDS. SKIN WITH STAGE II TO RIGHT BUTTOCK. ADDING ENSURE MAX PROTEIN BID TO PROMOTE WOUND HEALING. SUPPLEMENT PROVIDES 300 KCALS, 60 G PROTEIN. CONTINUE TO FOLLOW FOR PO INTAKE AND SKIN INTEGRITY.
[2024-08-09 11:40] LABS: Glucose, Whole Blood 136 mg/dL (60-115)
--- NOTE | 2024-08-09 13:00 | HO.PM.IMPN ---
Subjective Subjective Date of Service: 08/09/24 Interval History: f/u on right hip fracture hip repair surgery done 08/06 pain is reasonably controlled Physical Exam Vital Signs: Vital Signs: Last Vital Signs Temp 97.5 F 08/09/24 03:23 Pulse 78 08/09/24 03:23 Resp 20 08/09/24 03:23 BP 115/50 L 08/09/24 03:23 Pulse Ox 94 08/09/24 03:23 O2 Del Method Room Air 08/09/24 03:23 O2 Flow Rate 2 08/09/24 00:00 BMI result Body Mass Index 23.4 Const: Other: General: AO X 3, no acute distress Resp: CTA bilateral CVS: S1,S2,RRR GI: +BS, NT, no distention Skin: No rash, hip dressing in place, no hematoma Neuro: motor grossly intact Psych: appropriate affect Objective Data Active Medications Acetaminophen (Acetaminophen 325 Mg Tablet) 650 mg PO Q6H PRN PRN Reason: Pain, Mild (Pain Scale 1-3), fever or headache Last Admin: 08/08/24 09:39 Dose: 650 mg Documented By: VENTURA Atorvastatin Calcium (Atorvastatin Calcium 40 Mg Tablet) 40 mg PO DAILY [facility] Last Admin: 08/08/24 08:22 Dose: 40 mg Documented By: VENTURA Benzonatate (Benzonatate 100 Mg Capsule) 100 mg PO TID PRN PRN Reason: Cough Bethanechol Chloride (Bethanechol Chloride 25 Mg Tablet) 50 mg PO BID [facility] Last Admin: 08/08/24 20:33 Dose: 50 mg Documented By: JORDY Bisacodyl (Bisacodyl 10 Mg Supp.Rect) 10 mg [place] DAILY PRN PRN Reason: Constipation Calcium Carbonate (Calcium Carbonate 750 Mg Tab.Chew) 750 mg PO Q4H PRN PRN Reason: Heartburn Empagliflozin (Empagliflozin 10 Mg Tablet) 10 mg PO DAILY [facility] Last Admin: 08/08/24 08:22 Dose: 10 mg Documented By: VENTURA Enoxaparin Sodium (Enoxaparin Sodium 40 Mg/0.4 Ml Syringe) 40 mg SUBCUT Q24H [facility] Last Admin: 08/09/24 05:18 Dose: 40 mg Documented By: JORDY Glucose (Glucose Gel 15 Gm Gel..Gram.) 15 gm PO Q15M PRN; Protocol PRN Reason: per Hypoglycemia Standing Ord. Dextrose (D10) 250 mls @ 750 mls/hr IV Q15M PRN; Protocol PRN Reason: per Hypoglycemia Standing Ord. Last Infusion: 08/05/24 07:59 Dose: Infused Documented By: VITALIY Cefazolin Sodium/Dextrose (Ancef) 2 gm in 50 mls @ 100 mls/hr IV POSTOP [facility] Insulin Glargine (Insulin Glargine,Hum.Rec.Anlog 100 Unit/Ml 10 Ml Vial) 20 unit SUBCUT DAILY [facility] Last Admin: 08/08/24 08:21 Dose: 20 unit Documented By: VENTURA Insulin Human Lispro (Insulin Lispro 100 Unit/Ml 3 Ml Vial) 0 unit SUBCUT QIDACHS [facility]; Protocol Last Admin: 08/08/24 20:39 Dose: Not Given Documented By: JORDY Non-Admin Reason: No Insulin Coverage Comments: poc 146 Lisinopril (Lisinopril 20 Mg Tablet) 20 mg PO DAILY [facility]; Protocol Last Admin: 08/08/24 08:22 Dose: 20 mg Documented By: VENTURA Magnesium Hydroxide (Milk Of Magnesia 30 Ml Oral.Susp) 30 ml PO DAILY PRN PRN Reason: Constipation Magnesium Hydroxide (Milk Of Magnesia 30 Ml Oral.Susp) 30 ml PO DAILY PRN PRN Reason: Constipation Melatonin (Melatonin 3 Mg Tablet) 6 mg PO BEDTIME PRN PRN Reason: Insomnia Morphine Sulfate (Morphine Sulfate 4 Mg/Ml Cartridge) 2 mg IVPUSH Q4H PRN; Protocol PRN Reason: Pain, Severe (Pain Scale 7-10) Last Admin: 08/08/24 20:33 Dose: 2 mg Documented By: JORDY Multivitamins/Vitamin C (Multivitamin Tablet) 1 tab PO DAILY [facility] Last Admin: 08/08/24 08:22 Dose: 1 tab Documented By: VENTURA Omeprazole (Omeprazole 20 Mg Capsule.Dr) 20 mg PO DAILY@0630 [facility] Last Admin: 08/08/24 05:49 Dose: 20 mg Documented By: ESTELARISDorian Ondansetron HCl (Ondansetron Hcl 4 Mg/2 Ml Vial) 4 mg IVPUSH Q8H PRN PRN Reason: Nausea and Vomiting Oxycodone HCl (Oxycodone Hcl Immed Release 5 Mg Tablet) 5 mg PO Q6H PRN PRN Reason: Pain, Moderate(Pain Scale 4-6) Last Admin: 08/09/24 00:58 Dose: 5 mg Documented By: JORDY Pioglitazone HCl (Pioglitazone Hcl 30 Mg Tablet) 30 mg PO DAILY [facility] Last Admin: 08/08/24 08:22 Dose: 30 mg Documented By: VENTURA Sodium Biphosphate/Sodium Phosphate (Sodium Phosphate,[place]-Dibasic 133 Ml Enema) 118 ml [place] DAILY PRN PRN Reason: Constipation Sodium Chloride (0.9 % Sodium Chloride Flush 3 Ml Syringe) 3 ml IVFLUSH QSHIFT [facility] Last Admin: 08/08/24 22:02 Dose: Not Given Documented By: JORDY Non-Admin Reason: port flush only right chest Tamsulosin HCl (Tamsulosin Hcl 0.4 Mg Capsule) 0.4 mg PO BEDTIME [facility] Last Admin: 08/08/24 20:33 Dose: 0.4 mg Documented By: JORDY Labs 08/09/24 09:31 08/09/24 09:31 Labs: Laboratory Results - last 24 hr 08/08/24 08/08/24 08/08/24 05:48 07:36 11:24 MCV 92.1 MCH 30.6 MCHC 33.2 RDW 15.3 Plt Count 88 L MPV 11.3 Absolute Nucleated RBC 0.000 Nucleated RBC % (auto) 0.0 Anion Gap 14 Estim Creat Clear Calc 105.9 Estimated GFR > 60 POC Glucose 96 112 Random Glucose 91 Calcium 8.6 08/08/24 08/08/24 16:03 20:38 MCV MCH MCHC RDW Plt Count MPV Absolute Nucleated RBC Nucleated RBC % (auto) Anion Gap Estim Creat Clear Calc Estimated GFR POC Glucose 171 H 146 H Random Glucose Calcium Assessment and Plan (1) Femoral neck fracture: Status: Acute Plan 69/m with 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 Tolbert who presents to the ED after outpatient x-ray showed right hip fracture. Right hip displaced fracture,suspect pathologic fracture vs injury from fall on 07/12 s/p operative repair on 08/06, doing well dvt prophylaxis with lovenox, monitor platlets morphine and oxycodone for pain PT/OT eval Abnormal UA, not c/w wth uti and no symptoms hold abx Metastatic colon cancer to the liver Outpatient follow up with oncology for chemo after dc Heme/Onc consult (Dr. Tolbert) Insulin-dependent type 2 diabetes hypoglycemia resume lantus at 20 units, acotos, and Jardianced at 10 mg, hold metformin, SSI and diabetic diet Mild metabolic acidosis-resolved, especially in light of jardiance use (can cause euglycemic dka) HTN--BP on low side, hold lisinopril Thrombocytopenia--appear chronic and fluctuating, monitor while on lovenox CVA/HLD Continue statin Urinary retention Sultana in place Continue tamsulosin Full Code DVT Prophylaxis: Pneumatic compression due to impending surgical procedure, lovenox Quality Stroke Does the patient have a stroke diagnosis?: No VTE Prior VTE?: No VTE Risk Level:: Medical - moderate - high VTE Device Contraindication: N/A - Device Ordered VTE Drug Contraindication: Treatment Not Indicated
--- NOTE | 2024-08-09 13:20 | MHC.CM.PN ---
[facility] HAS OFFERED PT A BED PENDING AUTH. CENTER IS SEEKING AUTH, CM AWAITS APPROVAL. PT IS AWARE AND PLEASED THIS IS HIS FIRST CHOICE.
[2024-08-09] MEDS: Acetaminophen 325 MG TABLET 650 MG PO (13:53)
[2024-08-09 16:00] LABS: Glucose, Whole Blood 104 mg/dL (60-115)
[2024-08-09] MEDS: Tamsulosin HCL 0.4 MG CAPSULE PO (20:05)
[2024-08-09 20:49] LABS: Glucose, Whole Blood 150 mg/dL (60-115)
[2024-08-10] VITALS (7 sets, daily range): BP systolic 109–119; BP diastolic 55–60; PULSE 80–86; RESP 16–20; TEMP 36.3–36.8; O2SAT 94–96
[2024-08-10] MEDS: oxyCODONE HCl Immed Release 5 MG TABLET PO ×3 (04:57→18:49)
[2024-08-10] MEDS: Enoxaparin Sodium 40 MG/0.4 ML SYRINGE SUBCUT (04:58)
[2024-08-10] MEDS: Omeprazole 20 MG CAPSULE.DR PO (06:24)
[2024-08-10 07:28] LABS: Glucose, Whole Blood 98 mg/dL (60-115)
[2024-08-10] MEDS: Bethanechol Chloride 25 MG TABLET 50 MG PO ×2 (07:36→19:58)
[2024-08-10] MEDS: Pioglitazone HCL 30 MG TABLET PO (07:36)
[2024-08-10] MEDS: Multivitamin TABLET 1 TAB PO (07:36)
[2024-08-10] MEDS: Empagliflozin 10 MG TABLET PO (07:36)
[2024-08-10] MEDS: Atorvastatin Calcium 40 MG TABLET PO (07:36)
[2024-08-10] MEDS: lisinopriL 20 MG TABLET PO (07:36)
[2024-08-10] MEDS: 0.9 % Sodium Chloride Flush 3 ML SYRINGE IVFLUSH ×2 (07:38→16:25)
[2024-08-10] MEDS: Insulin Glargine,Hum.rec.anlog 100 UNIT/ML 10 ML VIAL 20 UNIT SUBCUT (07:39)
--- NOTE | 2024-08-10 08:35 | PM.PNORT ---
Subjective Subjective Date of Service: 08/10/24 Interval history: Postop day 4 status post right hip hemiarthroplasty No overnight events Patient was up and working with physical therapy and occupational therapy Tolerating pain well No concerns Physical Exam Vital Signs: Vital Signs: Last Vital Signs Temp 97.3 F 08/10/24 07:26 Pulse 83 08/10/24 07:26 Resp 16 08/10/24 07:26 BP 118/58 L 08/10/24 07:26 Pulse Ox 96 08/10/24 07:26 O2 Del Method Room Air 08/10/24 07:26 O2 Flow Rate 2 08/09/24 00:00 BMI result Body Mass Index 23.4 Const: General: cooperative, healthy appearing and no acute distress Resp: Effort & Inspection: normal respiratory effort and able to speak in complete sentences Cardio: Rate: regular rate Peripheral pulses: Peripheral pulses 2+ throughout GI: Palpation (GI): Soft to palpation Skin: Lesions: no lesions Rashes: no rashes Extrem: Other: right hip dressing is c/d/i. Able to dorsi/plantar flex. Calf is supple and nontender. Sensation intact. Pedal pulse intact. Procedures Date of Service Date of Service: 08/10/24 Progress Note: A&P Assessment and plan (1) Displaced fracture of right femoral neck: Status: Acute (2) Femoral neck fracture: Status: Acute Plan Continue pain mgmnt Lovenox for dvt ppx PT/OT for right hip mikey Dispo planning- pain mgmnt, Medicine to manage platelets, CM to arrange rehab once medically cleared. Follow up Orthopedics in 2 weeks Time Spent With Patient Time: Total time managing care of this patient today ____ minutes. Quality Stroke Does the patient have a stroke diagnosis?: No VTE Prior VTE?: No VTE Risk Level:: Medical - moderate - high VTE Device Contraindication: N/A - Device Ordered VTE Drug Contraindication: Treatment Not Indicated
[2024-08-10 11:28] LABS: Glucose, Whole Blood 184 mg/dL (60-115)
[2024-08-10] MEDS: Insulin Lispro 100 UNIT/ML 3 ML VIAL SUBCUT (12:15)
[2024-08-10 16:20] LABS: Glucose, Whole Blood 132 mg/dL (60-115)
[2024-08-10] MEDS: Morphine Sulfate 4 MG/ML CARTRIDGE 2 MG IVPUSH (16:24)
--- NOTE | 2024-08-10 17:22 | HO.PM.IMPN ---
Subjective Subjective Date of Service: 08/10/24 Interval History: right hip fracture Review of Systems seems some discomfort right hip Denies any other complaints. Physical Exam Vital Signs: Vital Signs: Last Vital Signs Temp 97.7 F 08/10/24 15:15 Pulse 86 08/10/24 15:15 Resp 20 08/10/24 15:15 BP 119/58 L 08/10/24 15:15 Pulse Ox 94 08/10/24 15:15 O2 Del Method Room Air 08/10/24 15:15 O2 Flow Rate 2 08/09/24 00:00 BMI result Body Mass Index 23.4 General: AO X 3, no acute distress Resp: CTA bilateral CVS: S1,S2,RRR GI: +BS, NT, no distention Skin: No rash, hip dressing in place, no hematoma Neuro: motor grossly intact Psych: appropriate affect Objective Data Active Medications Acetaminophen (Acetaminophen 325 Mg Tablet) 650 mg PO Q6H PRN PRN Reason: Pain, Mild (Pain Scale 1-3), fever or headache Last Admin: 08/09/24 13:53 Dose: 650 mg Documented By: AKIRA Atorvastatin Calcium (Atorvastatin Calcium 40 Mg Tablet) 40 mg PO DAILY [facility] Last Admin: 08/10/24 07:36 Dose: 40 mg Documented By: EDWIN Benzonatate (Benzonatate 100 Mg Capsule) 100 mg PO TID PRN PRN Reason: Cough Bethanechol Chloride (Bethanechol Chloride 25 Mg Tablet) 50 mg PO BID [facility] Last Admin: 08/10/24 07:36 Dose: 50 mg Documented By: EDWIN Bisacodyl (Bisacodyl 10 Mg Supp.Rect) 10 mg [place] DAILY PRN PRN Reason: Constipation Calcium Carbonate (Calcium Carbonate 750 Mg Tab.Chew) 750 mg PO Q4H PRN PRN Reason: Heartburn Empagliflozin (Empagliflozin 10 Mg Tablet) 10 mg PO DAILY [facility] Last Admin: 08/10/24 07:36 Dose: 10 mg Documented By: EDWIN Enoxaparin Sodium (Enoxaparin Sodium 40 Mg/0.4 Ml Syringe) 40 mg SUBCUT Q24H [facility] Last Admin: 08/10/24 04:58 Dose: 40 mg Documented By: JORDY Glucose (Glucose Gel 15 Gm Gel..Gram.) 15 gm PO Q15M PRN; Protocol PRN Reason: per Hypoglycemia Standing Ord. Dextrose (D10) 250 mls @ 750 mls/hr IV Q15M PRN; Protocol PRN Reason: per Hypoglycemia Standing Ord. Last Infusion: 08/05/24 07:59 Dose: Infused Documented By: VITALIY Cefazolin Sodium/Dextrose (Ancef) 2 gm in 50 mls @ 100 mls/hr IV POSTOP [facility] Insulin Glargine (Insulin Glargine,Hum.Rec.Anlog 100 Unit/Ml 10 Ml Vial) 20 unit SUBCUT DAILY [facility] Last Admin: 08/10/24 07:39 Dose: 20 unit Documented By: EDWIN Insulin Human Lispro (Insulin Lispro 100 Unit/Ml 3 Ml Vial) 0 unit SUBCUT QIDACHS [facility]; Protocol Last Admin: 08/10/24 16:26 Dose: Not Given Documented By: EDWIN Non-Admin Reason: No Insulin Coverage Lisinopril (Lisinopril 20 Mg Tablet) 20 mg PO DAILY [facility]; Protocol Last Admin: 08/10/24 07:36 Dose: 20 mg Documented By: EDWIN Magnesium Hydroxide (Milk Of Magnesia 30 Ml Oral.Susp) 30 ml PO DAILY PRN PRN Reason: Constipation Magnesium Hydroxide (Milk Of Magnesia 30 Ml Oral.Susp) 30 ml PO DAILY PRN PRN Reason: Constipation Melatonin (Melatonin 3 Mg Tablet) 6 mg PO BEDTIME PRN PRN Reason: Insomnia Morphine Sulfate (Morphine Sulfate 4 Mg/Ml Cartridge) 2 mg IVPUSH Q4H PRN; Protocol PRN Reason: Pain, Severe (Pain Scale 7-10) Last Admin: 08/10/24 16:24 Dose: 2 mg Documented By: EDWIN Multivitamins/Vitamin C (Multivitamin Tablet) 1 tab PO DAILY [facility] Last Admin: 08/10/24 07:36 Dose: 1 tab Documented By: EDWIN Omeprazole (Omeprazole 20 Mg Capsule.) 20 mg PO DAILY@0630 [facility] Last Admin: 08/10/24 06:24 Dose: 20 mg Documented By: JORDY Ondansetron HCl (Ondansetron Hcl 4 Mg/2 Ml Vial) 4 mg IVPUSH Q8H PRN PRN Reason: Nausea and Vomiting Oxycodone HCl (Oxycodone Hcl Immed Release 5 Mg Tablet) 5 mg PO Q6H PRN PRN Reason: Pain, Moderate(Pain Scale 4-6) Last Admin: 08/10/24 13:25 Dose: 5 mg Documented By: EDWIN Pioglitazone HCl (Pioglitazone Hcl 30 Mg Tablet) 30 mg PO DAILY [facility] Last Admin: 08/10/24 07:36 Dose: 30 mg Documented By: EDWIN Sodium Biphosphate/Sodium Phosphate (Sodium Phosphate,[place]-Dibasic 133 Ml Enema) 118 ml [place] DAILY PRN PRN Reason: Constipation Sodium Chloride (0.9 % Sodium Chloride Flush 3 Ml Syringe) 3 ml IVFLUSH QSHIFT [facility] Last Admin: 08/10/24 16:25 Dose: 3 ml Documented By: EDWIN Tamsulosin HCl (Tamsulosin Hcl 0.4 Mg Capsule) 0.4 mg PO BEDTIME [facility] Last Admin: 08/09/24 20:05 Dose: 0.4 mg Documented By: SEXK Labs 08/09/24 09:31 08/09/24 09:31 Labs: Laboratory Results - last 24 hr 08/09/24 08/10/24 08/10/24 20:37 07:24 11:16 POC Glucose 150 H 98 184 H 08/10/24 16:09 POC Glucose 132 H Assessment and Plan (1) Femoral neck fracture: Status: Acute Plan 69/m with 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 Tolbert who presents to the ED after outpatient x-ray showed right hip fracture. Right hip displaced fracture,suspect pathologic fracture vs injury from fall on 07/12 s/p operative repair on 08/06, doing well dvt prophylaxis with lovenox, monitor platlets morphine and oxycodone for pain PT/OT eval Abnormal UA, not c/w wth uti and no symptoms hold abx Metastatic colon cancer to the liver Outpatient follow up with oncology for chemo after dc Heme/Onc consult (Dr. Tolbert) Insulin-dependent type 2 diabetes hypoglycemia resume lantus at 20 units, acotos, and Jardianced at 10 mg, hold metformin, SSI and diabetic diet Mild metabolic acidosis-resolved, especially in light of jardiance use (can cause euglycemic dka) HTN--BP on low side, hold lisinopril Thrombocytopenia--appear chronic and fluctuating, monitor while on lovenox CVA/HLD Continue statin Urinary retention Sultana in place Continue tamsulosin Full Code DVT Prophylaxis: Pneumatic compression due to impending surgical procedure, lovenox Quality Stroke Does the patient have a stroke diagnosis?: No VTE Prior VTE?: No VTE Risk Level:: Medical - moderate - high VTE Device Contraindication: N/A - Device Ordered VTE Drug Contraindication: Treatment Not Indicated
[2024-08-10 19:53] LABS: Glucose, Whole Blood 137 mg/dL (60-115)
[2024-08-10] MEDS: Tamsulosin HCL 0.4 MG CAPSULE PO (19:58)
[2024-08-11 03:27] VITALS: BP 122/62; PULSE 81; RESP 16; TEMP 36.8; O2SAT 94
[2024-08-11] MEDS: Omeprazole 20 MG CAPSULE.DR PO (05:39)
[2024-08-11] MEDS: Enoxaparin Sodium 40 MG/0.4 ML SYRINGE SUBCUT (05:39)
[2024-08-11] MEDS: Acetaminophen 325 MG TABLET 650 MG PO (06:13)
[2024-08-11 07:34] VITALS: BP 123/63; PULSE 79; RESP 18; TEMP 36.2; O2SAT 96
[2024-08-11 07:36] VITALS: BP 123/63; PULSE 79; O2SAT 96
[2024-08-11 07:46] LABS: Glucose, Whole Blood 106 mg/dL (60-115)
--- NOTE | 2024-08-11 09:02 | MHC.CM.PN ---
Late entry: 08/10 per [facility] has denied auth for acute rehab. [facility] preference is [facility]. They have offered a bed and submitted for auth. CM will continue to follow.
[2024-08-11] MEDS: Pioglitazone HCL 30 MG TABLET PO (09:18)
[2024-08-11] MEDS: Bethanechol Chloride 25 MG TABLET 50 MG PO (09:18)
[2024-08-11] MEDS: Insulin Glargine,Hum.rec.anlog 100 UNIT/ML 10 ML VIAL 20 UNIT SUBCUT (09:18)
[2024-08-11] MEDS: Empagliflozin 10 MG TABLET PO (09:19)
[2024-08-11] MEDS: Multivitamin TABLET 1 TAB PO (09:19)
[2024-08-11] MEDS: lisinopriL 20 MG TABLET PO (09:19)
[2024-08-11] MEDS: Atorvastatin Calcium 40 MG TABLET PO (09:19)
[2024-08-11] MEDS: 0.9 % Sodium Chloride Flush 3 ML SYRINGE IVFLUSH (09:22)
--- NOTE | 2024-08-11 09:25 | P.OP_ITS ---
Operative Note Operative Note Date of Service: 08/06/24 Narrative: Date of Service: 08/06/24 Pre-op diagnosis: Right femoral neck fracture Post-op diagnosis: same Procedure: Right hip mikey Implants: Giovanny acvcolade C # 5 [phone] with +0/46 bipolar Surgeon: Hugo Montana MD Anesthesia: GETA and local Was an Tomato Pulper Operator used for this Procedure?: No Estimated blood loss (mL): 100 IV fluids (mL): 750 Pathology: other Condition: stable Disposition: PACU Procedure in detail: Patient was brought to the operative room placed in the lateral decubitus position. All bony prominences were well padded and the was prepped and draped in standard sterile fashion. IV antibiotics per weight were administered and a time-out was called to identify proper site proper procedure proper surgeon. Radiographs were available and confirmed. I began by making a curvilinear incision over the posterolateral aspect of the greater trochanter. Dissection was taken down to the tensor fascia which was incised in line with the incision and a Charnley retractor was placed. The hip was internally rotated and the external rotators were identified. All vessels in the area were cauterized and a full-thickness capsular/external rotator layer was developed in a hockey-stick fashion starting just proximal to the piriformis. This layer was tagged and the displaced femoral neck fracture was identified. This was sub acute, Clean-up cuts was performed while protecxtion the posterolateral soft tissues and the head was removed and measured (46mm) on the back table. I then copiously irrigated the acetabulum and removed all bony fragments. Once this was done I used a cookie cutter to lateralize and a Charnley awl to identify the canal and then sequentially broached up to a 127 deg #5. I then trialed with a standard head and a bipolar component matching the femoral head size. I was satisfied wi th the range of motion and stability and length. Therefore I removed all instrumentation and copiously irrigated. Two bags of bone cement were mixed on the back table using 3rd generation cementation technique. Given his ipsilateral weakness and history of cancer I elected to cement. I placed a cement restrictor and a centralizer and then, using a cement gun, filled the canal and place the collared stem. Excess cement was removed and the stem was held in position until all the cement was dry. I then retrialed. I was satisfied with the +0/46 implant. My final bipolar components were then placed. I closed the capsular layer with FiberWire and then copiously irrigate I performed a layered closure with sabina on skin. The patient was placed in sterile dressing extubated brought to recovery room in stable condition there were no known complications.
--- NOTE | 2024-08-11 10:28 | MHC.CLN ---
Addendum entered by Jazz Whitfield RD 08/11/24 11:44: NUTRITION CONSULT FOR NEW DTI TO LEFT HEEL. PATIENT WITH STAGE II TO RIGHT BUTTOCK. RD FOLLOWING. RECEIVING ENSURE MAX PROTEIN BID TO PROMOTE WOUND HEALING. Original Note: F/U DIET=DIABETIC 2000 KCALS. PO INTAKE USUALLY 100%. SKIN WITH STAGE II TO RIGHT BUTTOCK. ENSURE MAX PROTEIN BID TO PROMOTE WOUND HEALING. SUPPLEMENT PROVIDES 300 KCALS, 60 G PROTEIN. CONTINUE TO FOLLOW FOR PO INTAKE AND SKIN INTEGRITY.
--- NOTE | 2024-08-11 10:57 | HO.WOUND ---
Wound Consult: Follow up 69yr old? male admitted to [facility] on 08/04/24 - See progress notes and H&P for detailed history.? Wound consult placed for Buttock wound POA .? Chart review and photo review completed. Right Sacrum Etiology: ??REsurfacing Stage 2 Pressure injury Present on Admission Wound Bed: newly epithelialized wound bed Drainage / Odor: None Edges: ? irregular Jeaneth wound: intact blanchable hyperpigmentation noted - hyperpigmentation noted Goals of Treatment: ? Foam dressing to aid in pressure redistribution Left Heel Etiology: ??Deep Tissue Injury In Evolution Wound Bed: dark brown maroon pigmentation with soft fluid filed bulla unable to see base Drainage / Odor: None Edges: ? irregular Jeaneth wound: red pink pigmentation - no swelling no induration noted Pain: Pain reported Goals of Treatment: ? Foam dressing to aid in pressure redistribution Right Heel and Lateral Foot Etiology: ??Unclear Etiology - Deep Tissue Injury vs Thrombpcytopenia Wound Bed: intact irregularly shaped area with nonblanchable purple tissue Drainage / Odor: None Edges: ? irregular Jeaneth wound: intact no induration no fluctuance noted Goals of Treatment: ? Foam dressing to aid in pressure redistribution 1. Turn and Reposition every 2 hours and as needed for patient comfort.? Use pillows or wedges to support off loading positions. 2. Off Load all bony prominences with use of pillows and heel boots if needed.? Apply Preventative foams where needed. ? 3. Monitor for incontinence and moisture control, use barrier creams when needed for prevention and treatment. 4. Provide adequate and supplemental nutrition.? 5. Order low air loss mattress. 6. When applicable maintain blood glucose levels per Providers order. 7. Sacrum, Left Heel and Right Heel - Cleanse with PH balanced wipes, spray. Pat dry. Apply skin prep allow to dry. Apply Foam dressing, change every 3 days and PRN. Off Load pressure with Q2hr turns and use of pillows. Re-consult wound care Nurse for wound deterioration or wound changes.
[2024-08-11 11:00] VITALS: O2SAT 93
[2024-08-11 11:12] VITALS: BP 116/59; PULSE 81; RESP 18; TEMP 36.6; O2SAT 95
[2024-08-11 11:39] LABS: Glucose, Whole Blood 147 mg/dL (60-115)
--- NOTE | 2024-08-11 11:50 | MHC.CM.PN ---
Onesimo Rhodes has obtained auth. S transport scheduled for 3pm. RN, MD and patient aware. IMM delivered.
[2024-08-11] MEDS: Morphine Sulfate 4 MG/ML CARTRIDGE 2 MG IVPUSH (13:26)
--- NOTE | 2024-08-11 14:01 | P.DS_ITS ---
DS: Providers Provider Date of Service: 08/11/24 Date of admission: 08/04/24 16:55 Date of discharge: 08/11/24 [facility] Consults: 08/04/24 17:00 Consult to Hematology / Oncology Routine Consulting Provider: [facility] Oncology/Hematology Reason for consultation: Right hip fracture, next chemo infusion archie for t omorrow Consult to Orthopedics Routine Consulting Provider: [facility] Orthopedic Surgeons Reason for consultation: Right hip fracture 08/04/24 19:49 Consult to Wound Care Routine Reason for consultation: stage II to right buttock Attending physician on discharge: Quang Schroeder Discharging clinician: Quang Schroeder DS: Diagnosis Discharge Diagnosis (1) Femoral neck fracture: Status: Acute DS: Summary Hospital Course Hospital Course: HPI: 69-year-old male with a PMH significant for?CVA with residual right-sided deficits, HTN, insulin-dependent type 2 diabetes, urinary retention who self- caths at home, colon cancer cancer (diagnosed 03/2019) metastasized to liver (diagnosed 07/2023) on chemo following with Dr. Tolbert who presents to the ED after outpatient x-ray showed right hip fracture. Patient has initially been complaining of left hip pain and oncology ordered hip and pelvis x-ray on 07/07 which was negative for acute fracture or bone metastasis. Patient then fell 5 days later on 07/12/2024. Was seen and evaluated in the ED where triage note reports he fell at home with the head strike and small abrasion on top of his head, but was not complaining of any pain at that time. Workup at that time included CXR, right lower extremity venous duplex, and CT of head and C-spine, all of which were negative. Patient was was placed in physician observation and discharged to [facility] where he reports was experiencing constant right hip pain and right lower leg weakness that was not improving with physical therapy. Scheduled appointment with Dr. Sandoval in Neurology where workup was negative for neuropathic/impingement, and repeat hip and pelvis x-ray was ordered which showed a displaced, oblique fracture through the right femoral neck with superio r displacement in the distal fracture fragment. Patient otherwise denies any acute medical complaints. No numbness or tingling in extremities. No changes to bowel or bladder habits. Denies chest pain/pressure, palpitations. No shortness a breath or difficulty breathing. Of note, patient was noted to have a stage 2 decubitus ulcer, which STR reports is now healed. Pt also was scheduled to have next chemo infusion tomorrow on 08/05. In the ED pt's vitals stable and WNL. Labs were grossly unremarkable and baseline for patient. No leukocytosis. Stable H& H. No significant electrolyte abnormalities. Renal and hepatic function baseline. UA showing trace leukocyte esterase, negative nitrites, 6-10 WBCs, and 4+ bacteria. Hip and pelvis x-ray found displaced, oblique fracture through the right femoral neck with superior displacement of the distal fracture fragment. CXR showed with no acute radiographic finding. EKG demonstrated normal sinus rhythm with left anterior fascicular block but no evidence of significant ST elevations or depressions. Pt was treated with ondansetron and hydromorphone. Pt will be admitted to the hospital for treatment and further evaluation of acute right hip fracture requiring surgical intervention. Hospital course: 69/m with 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 Tolbert who presents to the ED after outpatient x-ray showed right hip fracture. Right hip displaced fracture,suspect pathologic fracture vs injury from fall on 07/12 s/p operative repair on 08/06, doing well dvt prophylaxis with lovenox, monitor cbc for platlets( has thromocytopenia) oxycodone for pain ,bowel regimen asymptomatic bacteruria/mild pyuria hold abx Metastatic colon cancer to the liver Outpatient follow up with oncology for chemo after dc Heme/Onc consult (Dr. Tolbert) Insulin-dependent type 2 diabetes flactuating fs :adjusted lantus at 20 units, continue acotos, and Jardianced at 10 mg, hold metformin, SSI and diabetic diet Mild metabolic acidosis-resolved, especially in light of jardiance use (can cause euglycemic dka), hold metformin. HTN--bodelrine hold lisinopril unless bp consistently above 140 mm hg. Thrombocytopenia--appear chronic and fluctuating,improving , monitor cbc while on lovenox. possible Dti Left heel : please see wound care instructions. plan: Continue Lovenox for 6 weeks initiated at 08/07 for DVT prophylaxis.Monitor CBC while on Lovenox because patient has thrombocytopenia(which is improving somewhat). Diabetes: Please see above Lantus adjusted metformin stopped, sliding scale coverage. Also Jardiance adjusted to 10 mg daily. Hypertension-blood pressure borderline so hold lisinopril unless blood pressure consistently above 140 mmHg. Patient is to follow-up with ortho outpatient. Above management discussed with the patient and his family at bedside in detail length they both understand and in agreement with the above plan, time spent 40 minute. Time Attestation Total time managing care of this patient today: 40 mintues. Discharge Coordination Time (in mins): 40 min Quality: Safe Use of Opioids Does Pt have an Active Cancer Diagnosis on the Problem List?: No Quality: Stroke Does the patient have a stroke diagnosis?: No Physical Exam Vital Signs: Vital Signs: Last Vital Signs Temp 97.8 F 08/11/24 11:12 Pulse 81 08/11/24 11:12 Resp 18 08/11/24 11:12 BP 116/59 L 08/11/24 11:12 Pulse Ox 95 08/11/24 11:12 O2 Del Method Room Air 08/11/24 11:12 O2 Flow Rate 2 08/09/24 00:00 BMI result Body Mass Index 23.4 General: AO X 3, no acute distress Resp: CTA bilateral CVS: S1,S2,RRR GI: +BS, NT, no distention Skin: No rash, hip dressing in place, no hematoma Neuro: motor grossly intact Psych: appropriate affect DS: Data Data Completed and Pending Completed studies during hospitalization [Text1]: Pending at discharge 08/06/24 10:43 Surgical [PTH] Routine Labs on day of discharge: Laboratory Results - last 24 hr 08/10/24 08/10/24 08/11/24 16:09 19:29 07:33 POC Glucose 132 H 137 H 106 08/11/24 11:29 POC Glucose 147 H Imaging Chest x-ray: Radiologist's impression: ITS Impressions Chest X-Ray 08/04/24 15:15 IMPRESSION: Findings as above. Electronically signed by: Ridge Valdivia MD 08/04/2024 03:42 PM [facility] Pelvis X-Ray 08/09/24 17:00 IMPRESSION: Status post right total hip hemiarthroplasty. No evidence of immediate hardware failure. Electronically signed by: Pasquale Vazquez MD 08/09/2024 08:04 PM [facility] Discharge Plan Discharge Anticipated Discharge Date/Time: 08/11/24 11:56 Patient Disposition: Xfer SNF Discharge Diagnosis: Hip fracture Referrals: [facility] [Outside] - 1 Day (short term rehab) Mauri Dixon, RAVEN-BC [Primary Care Provider] - 1 Week Sis Mendoza PA-C [Physician Construction Project Assistant] - 08/23/24 2:00 pm Discharge Medications: New enoxaparin 40 mg/0.4 mL Syringe 40 mg subcut Q24H Qty: 4 0RF Rx Instructions: need 6 weeks -intiated on 08/07/24 ( end date on 09/18/24) insulin lispro [Admelog U-100 Insulin lispro] 100 unit/mL Solution See Protocol subcut QIDACHS Qty: 1 0RF Protocol: Insulin Correction Scale Less than or equal to 110 ---- Give (units): 0 111 to 150 Give (units): 0 151 to 200 Give (units): 2 201 to 250 Give (units): 4 251 to 300 Give (units): 6 301 to 350 Give (units): 8 Greater than 350 Give (units): 10 Call if Blood Glucose > : 350 Jardiance 10 mg Tablet 10 mg PO DAILY Qty: 1 0RF Continued atorvastatin 40 mg tablet 40 mg PO DAILY 90 Days Qty: 90 1RF bethanechol chloride 50 mg tablet 50 mg PO BID Qty: 60 2RF pioglitazone [Actos] 30 mg tablet 30 mg PO DAILY multivitamin Tablet 1 tab PO DAILY nystatin 100,000 unit/mL Suspension 5 ml PO TID Rx Instructions: swish and swallow lidocaine 4 % Adhesive Patch,Medicated 1 patch TOPICAL BID dextrose [Glucose Gel] 40 % Gel 15 g PO Q15M PRN (Reason: Hyproglycemia) Rx Instructions: until symptoms of low blood sugar are controlled magnesium hydroxide [Milk of Magnesia] 400 mg/5 mL Suspension 30 ml PO DAILY PRN (Reason: Constipation) bisacodyl 10 mg Suppository 10 mg AR DAILY PRN (Reason: Constipation) pantoprazole 40 mg Tablet,Delayed Release (Dr/Ec) 40 mg PO DAILY@0630 Fleet Enema 19-7 gram/118 mL Enema 118 ml AR DAILY PRN (Reason: Constipation) glucagon 1 mg Recon Soln 1 mg SUBCUT Q15M PRN (Reason: Hypoglycemia) Rx Instructions: until target blood sugar attained acetaminophen 500 mg Tablet 500 mg PO TID oxycodone 5 mg Capsule 5 mg PO Q8H PRN (Reason: Knee pain) Qty: 30 0RF Rx Instructions: Partial Fill upon patient request. tamsulosin 0.4 mg capsule 0.4 mg PO BEDTIME (DME) blood sugar diagnostic Strip See Rx Instructions .ROUTE TID Qty: 10 Rx Instructions: As directed (DME) FreeStyle Justina 3 Sensor Device See Rx Instructions .ROUTE .MEDSUPPLY Qty: 2 11RF Rx Instructions: Apply every 14 days As directed (DME) FreeStyle Justina 3 [place] Misc See Rx Instructions .ROUTE .MEDSUPPLY Qty: 1 0RF Rx Instructions: As directed Changed insulin degludec [Tresiba FlexTouch U-100] 100 unit/mL (3 mL) insulin pen 25 unit subcut DAILY Qty: 1 0RF Held lisinopril 20 mg tablet 20 mg PO DAILY Hold Instructions: Resume on 09/16/24. Discontinued oxycodone 5 mg tablet 5 mg PO DAILY@0600 metformin 1,000 mg tablet 1,000 mg PO BID Jardiance 25 mg tablet 25 mg PO DAILY insulin lispro [Humalog KwikPen Insulin] 100 unit/mL insulin pen 12 unit subcut DAILY@1200 Patient Comments: rn confirmed with patient. insulin lispro [Humalog KwikPen Insulin] 100 unit/mL insulin pen 14 unit subcut DAILY@1730 Patient Comments: patient confirmed with rn, per rn, and rn note Rx Instructions: dinner Discharge Orders: Discharge Order (Routine); Ordered 08/11/24 Ordered By: Quang Schroeder Diet: Advance to usual diet Activity on Discharge: No Running or jogging Stand Alone Forms: Patient Portal Discharge page Print Language: Welsh Care Plan Goals: recovery from hip surgery Health Concerns: hip fracture bladder cancer Plan of Treatment: to short term rehab take oxycodone for pain moniter cbc q weekly while on lovenox. follow up with oncology to resume chemo * Physical Therapy for mikey arthroplasty: wbat, posterior precautions, gait training, ROM, strength * Limit stair climbing * No showering, no tub bath-keep dressing clean, dry and intact * No driving x6 weeks * Continue lovenox x 6 weeks( iniated at 08/07/24) * Follow up with [facility] Orthopedics in 2 weeks: * --you will also have your first out patient PT eval on the day of your post op appt-so please plan on being in the office that day for an extended period of time. Assessment: see above
== END 2024-08-11 15:50 | disposition skilled nursing facility (03) | DRG 522 ==
LOC: HO.ED 15:36 → HO.EDOVER 17:10 → HO.S3 17:20
PROVIDERS: Internal Medicine; Orthopaedic Surgery; Physician Assistant Medical; Admitting Provider Student in an Organized Health Care Education/Training Program; Emergency Provider Emergency Medicine; PCP Nurse Practitioner Family; Visit Provider Internal Medicine
PROC: 0SRR0J9 Replacement of Right Hip Joint, Femoral Surface with Synthetic Substitute, Cemented, Open Approach (ICD-10-PCS; CPT 27125; principal; 2024-08-06 09:00)
DX: S72.001A Fracture of unspecified part of neck of right femur, initial encounter for closed fracture (principal); I69.351 Hemiplegia and hemiparesis following cerebral infarction affecting right dominant side; C78.7 Secondary malignant neoplasm of liver and intrahepatic bile duct; E87.20 Acidosis, unspecified; C18.2 Malignant neoplasm of ascending colon; E78.5 Hyperlipidemia, unspecified; E11.649 Type 2 diabetes mellitus with hypoglycemia without coma; D69.6 Thrombocytopenia, unspecified; R33.9 Retention of urine, unspecified; W19.XXXA Unspecified fall, initial encounter; N18.2 Chronic kidney disease, stage 2 (mild); I12.9 Hypertensive chronic kidney disease with stage 1 through stage 4 chronic kidney disease, or unspecified chronic kidney disease; E11.22 Type 2 diabetes mellitus with diabetic chronic kidney disease; Z87.440 Personal history of urinary (tract) infections; Z79.4 Long term (current) use of insulin; Z79.899 Other long term (current) drug therapy
CPT/HCPCS: 36415; 71045; 72170; 80048; 80053; 82947; 83735; 85025; 85027; 85610; 85730; 86850; 86900; 86901; 88305; 88311; 93005; 97110; 97116; 97162; 97166; 97530; 97535; 99285; C1713; C1776; J0330; J0690; J1100; J1171; J1642; J1650; J2003; J2250; J2270; J2371; J2405; J2704; J2795; J3010

== ENCOUNTER → 2024-08-04 15:10 | Outpatient (BNV) | payer MEDICARE, SELFPAY | PROVIDERS: Admitting Provider Student in an Organized Health Care Education/Training Program; Emergency Provider Emergency Medicine; PCP Nurse Practitioner Family; Visit Provider Internal Medicine Cardiovascular Disease | DX: R94.31 Abnormal electrocardiogram [ECG] [EKG] (principal) | CPT/HCPCS: 93010 ==

== ENCOUNTER → 2024-08-04 16:55 | Outpatient (BNV) | payer MEDICARE, SELFPAY | PROVIDERS: Admitting Provider Student in an Organized Health Care Education/Training Program; Emergency Provider Emergency Medicine; PCP Nurse Practitioner Family | DX: S72.001D Fracture of unspecified part of neck of right femur, subsequent encounter for closed fracture with routine healing (principal) | CPT/HCPCS: 27236; 99024; 99222 ==

== ENCOUNTER → 2024-08-04 16:55 | Outpatient (BNV) | payer MEDICARE, SELFPAY | PROVIDERS: Admitting Provider Student in an Organized Health Care Education/Training Program; Emergency Provider Emergency Medicine; PCP Nurse Practitioner Family; Visit Provider Student in an Organized Health Care Education/Training Program | DX: S72.001A Fracture of unspecified part of neck of right femur, initial encounter for closed fracture (principal) | CPT/HCPCS: 99223; 99231; 99232; 99239 ==

== ENCOUNTER → 2024-08-04 16:55 | Outpatient (BNV) | payer MEDICARE, SELFPAY | PROVIDERS: Admitting Provider Student in an Organized Health Care Education/Training Program; Emergency Provider Emergency Medicine; PCP Nurse Practitioner Family; Visit Provider Internal Medicine Medical Oncology | DX: C18.3 Malignant neoplasm of hepatic flexure (principal); C78.7 Secondary malignant neoplasm of liver and intrahepatic bile duct; S72.001A Fracture of unspecified part of neck of right femur, initial encounter for closed fracture | CPT/HCPCS: 99222 ==

== ENCOUNTER 2024-08-13 05:31 | Outpatient (REF) | payer MEDICARE, SELFPAY ==
[2024-08-13 05:34] LABS: MANUAL DIFF FLAG NO
[2024-08-13 05:45] LABS: Basophils Absolute Auto 0.1 X10*3/uL (0.0-0.2); Basophils Percent Auto 0.9 % (0-2); Eosinophils Absolute Auto 0.2 X10*3/uL (0.0-0.4); Hematocrit 33.7 % (42.0-52.0); Hemoglobin 11.1 g/dl (14.0-18.0); Imm Gran Abs Auto 0.05 X10*3/uL (0.00-0.03); Imm Gran Pct Auto 0.9 % (0.0-0.4); Lymphocytes Percent Auto 16.6 % (20-40); Mean Corpuscular HGB Conc 32.9 g/dl (31.0-36.0); Mean Corpuscular Hemoglobin 30.4 pg (27.0-33.0); Mean Corpuscular Volume 92.3 fL (80.0-98.0); Mean Platelet Volume 11.4 fL (9.4-12.4); Monocytes Absolute Auto 0.9 X10*3/uL (0.1-1.2); Monocytes Percent Auto 15.5 % (2-11); NRBC Pct Auto 0.3 /100WBC (0.0-0.2); Neutrophils Absolute Auto 3.6 x10*3/uL (2.0-8.3); Neutrophils Percent Auto 63.1 % (45-73); Platelet Count 112 X10*3/uL (160-400); Red Blood Count 3.65 X10*6/uL (4.60-5.80); Red Cell Distribution Width 16.2 % (11.0-16.0); White Blood Count 5.7 X10*3/uL (4.8-10.8)
[2024-08-13 05:58] LABS: Alanine Aminotransferase 22 U/L (0-40); Albumin Level 2.9 g/dL (3.5-5.0); Alkaline Phosphatase 134 U/L (39-117); Anion Gap 13 (12-20); Aspartate Amino Transferase 35 U/L (5-37); Blood Urea Nitrogen 17 mg/dL (9-16); Calcium 8.4 mg/dL (8.4-10.2); Carbon Dioxide 22 mmol/L (22-29); Chloride 108 mmol/L (96-108); Estimated Glomerular Filt Rate > 60; Glucose Random 81 mg/dL (60-115); Potassium 4.1 mmol/L (3.3-5.1); Sodium 139 mmol/L (135-145); Total Protein 5.7 g/dL (6.5-8.0)
== END 2024-08-13 05:32 | disposition home or self-care (01) ==
LOC: HO.MMNH1L 05:31
DX: I10 Essential (primary) hypertension (principal)
CPT/HCPCS: 36415; 80053; 85025

== ENCOUNTER 2024-08-16 06:34 | Outpatient (REF) | payer MEDICARE, SELFPAY ==
[2024-08-16 06:19] LABS: MANUAL DIFF FLAG NO
[2024-08-16 06:29] LABS: Basophils Absolute Auto 0.1 X10*3/uL (0.0-0.2); Basophils Percent Auto 0.5 % (0-2); Eosinophils Percent Auto 0.1 % (0-4); Hematocrit 39.5 % (42.0-52.0); Hemoglobin 12.9 g/dl (14.0-18.0); Imm Gran Abs Auto 0.05 X10*3/uL (0.00-0.03); Imm Gran Pct Auto 0.4 % (0.0-0.4); Lymphocytes Absolute Auto 0.5 X10*3/uL (1.2-4.9); Lymphocytes Percent Auto 3.5 % (20-40); Mean Corpuscular HGB Conc 32.7 g/dl (31.0-36.0); Mean Corpuscular Hemoglobin 30.3 pg (27.0-33.0); Mean Corpuscular Volume 92.7 fL (80.0-98.0); Mean Platelet Volume 11.8 fL (9.4-12.4); Monocytes Absolute Auto 0.9 X10*3/uL (0.1-1.2); Monocytes Percent Auto 6.5 % (2-11); Neutrophils Absolute Auto 12.1 x10*3/uL (2.0-8.3); Platelet Count 127 X10*3/uL (160-400); Red Blood Count 4.26 X10*6/uL (4.60-5.80); Red Cell Distribution Width 16.4 % (11.0-16.0); White Blood Count 13.6 X10*3/uL (4.8-10.8)
[2024-08-16 06:54] LABS: Anion Gap 14 (12-20); Blood Urea Nitrogen 20 mg/dL (9-16); Calcium 8.8 mg/dL (8.4-10.2); Carbon Dioxide 21 mmol/L (22-29); Chloride 107 mmol/L (96-108); Estimated Glomerular Filt Rate > 60; Sodium 138 mmol/L (135-145)
[2024-08-16 07:29] LABS: Glucose Random 36 mg/dL (60-115)
== END 2024-08-16 06:35 | disposition home or self-care (01) ==
LOC: HO.MMNH1L 06:34
PROVIDERS: Visit Provider Nurse Practitioner
DX: I10 Essential (primary) hypertension (principal)
CPT/HCPCS: 36415; 80048; 85025

== ENCOUNTER 2024-08-17 07:34 | Outpatient (REF) | payer MEDICARE, SELFPAY ==
[2024-08-17 10:55] LABS: MANUAL DIFF FLAG NO
[2024-08-17 11:03] LABS: Basophils Percent Auto 0.5 % (0-2); Eosinophils Percent Auto 0.4 % (0-4); Hematocrit 33.5 % (42.0-52.0); Imm Gran Abs Auto 0.04 X10*3/uL (0.00-0.03); Imm Gran Pct Auto 0.5 % (0.0-0.4); Lymphocytes Absolute Auto 0.5 X10*3/uL (1.2-4.9); Lymphocytes Percent Auto 6.9 % (20-40); Mean Corpuscular HGB Conc 32.8 g/dl (31.0-36.0); Mean Corpuscular Hemoglobin 30.1 pg (27.0-33.0); Mean Corpuscular Volume 91.8 fL (80.0-98.0); Monocytes Absolute Auto 0.8 X10*3/uL (0.1-1.2); Monocytes Percent Auto 10.4 % (2-11); Neutrophils Absolute Auto 6.4 x10*3/uL (2.0-8.3); Neutrophils Percent Auto 81.3 % (45-73); Platelet Count 106 X10*3/uL (160-400); Red Blood Count 3.65 X10*6/uL (4.60-5.80); Red Cell Distribution Width 16.4 % (11.0-16.0); White Blood Count 7.9 X10*3/uL (4.8-10.8)
[2024-08-17 11:24] LABS: Anion Gap 12 (12-20); Blood Urea Nitrogen 25 mg/dL (9-16); Calcium 8.1 mg/dL (8.4-10.2); Carbon Dioxide 21 mmol/L (22-29); Chloride 104 mmol/L (96-108); Estimated Glomerular Filt Rate > 60; Glucose Random 204 mg/dL (60-115); Sodium 133 mmol/L (135-145)
== END 2024-08-17 07:35 | disposition home or self-care (01) ==
LOC: HO.MMNH1L 07:34
PROVIDERS: Visit Provider Nurse Practitioner
DX: E11.22 Type 2 diabetes mellitus with diabetic chronic kidney disease (principal)
CPT/HCPCS: 36415; 80048; 85025; 87040; 87077; 87186; 87205

== ENCOUNTER 2024-08-23 10:59 | Outpatient (REF) | payer MEDICARE, SELFPAY ==
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
== END 2024-08-23 11:00 | disposition home or self-care (01) ==
LOC: HO.HOSX 10:59
PROVIDERS: Visit Provider Physician Assistant
DX: Z13.89 Encounter for screening for other disorder (principal)

== ENCOUNTER 2024-08-27 05:17 | Outpatient (REF) | payer MEDICARE, SELFPAY ==
[2024-08-27 05:19] LABS: MANUAL DIFF FLAG NO
--- OUTSIDE RECORDS SUMMARY | 2024-08-27 05:20 | XMS_ITS | Continuity of Care Document ---
Author Organization [facility] Address [address] [place] [phone] Phone Care Team Providers Care Collateral Specialist Name Role Phone Lisa Costa, Jake Unavailable [...] [facility], [address] [facility], [place], [place], [id number], tel:[phone] [facility] [place] Benign Eyelid Lesion 5 Lisa Joseph. [address] [place] [address], [id number] , . tel: [phone] Referring Provider: Funmi Martin, [address] [place] [address], [place], [place], [facility]. tel:[phone] [facility], [address], [id number], tel:[phone] [facility] [place] Benign Eyelid Lesion 5 Lisa Joseph. [address] [place] [address], [id number] , . tel: [phone] Referring Provider: Funmi Martin, [address] [place] [place] [address], [place], [address]. tel:[phone] [facility], [address] [place] [address], [id number], tel:[phone] [facility] [place] Benign Eyelid LesionBlepharitis 5 Lisa Joseph. [address] [place] [address], [id number] , . tel: [phone] Referring Provider: Funmi Martin, [address] [place] [address], [facility]. tel:[phone] Family History Family Member Type Diagnosis Age At Onset Maternal grandfather Problem (finding) Diabetes mellit Mother Problem (finding) cancer Brother Problem (finding) Diabetes mellitus Payers Payer name Insurance type Covered democrat ID Authoriza tianthony(s) BCBS [facility] Blue Shield [id number] Social History Type Description Quantity Date Captured [...]
[2024-08-27 05:28] LABS: Basophils Absolute Auto 0.1 X10*3/uL (0.0-0.2); Basophils Percent Auto 0.7 % (0-2); Eosinophils Absolute Auto 0.1 X10*3/uL (0.0-0.4); Hematocrit 35.1 % (42.0-52.0); Hemoglobin 11.6 g/dl (14.0-18.0); Imm Gran Abs Auto 0.09 X10*3/uL (0.00-0.03); Imm Gran Pct Auto 1.3 % (0.0-0.4); Lymphocytes Absolute Auto 0.7 X10*3/uL (1.2-4.9); Lymphocytes Percent Auto 10.7 % (20-40); Mean Corpuscular Volume 90.7 fL (80.0-98.0); Mean Platelet Volume 11.2 fL (9.4-12.4); Monocytes Absolute Auto 0.6 X10*3/uL (0.1-1.2); Monocytes Percent Auto 8.4 % (2-11); Neutrophils Absolute Auto 5.3 x10*3/uL (2.0-8.3); Neutrophils Percent Auto 76.9 % (45-73); Platelet Count 133 X10*3/uL (160-400); Red Blood Count 3.87 X10*6/uL (4.60-5.80); Red Cell Distribution Width 16.3 % (11.0-16.0); White Blood Count 6.9 X10*3/uL (4.8-10.8)
[2024-08-27 05:44] LABS: Alanine Aminotransferase 21 U/L (0-40); Albumin Level 2.8 g/dL (3.5-5.0); Alkaline Phosphatase 187 U/L (39-117); Anion Gap 12 (12-20); Aspartate Amino Transferase 32 U/L (5-37); Bilirubin Total 0.6 mg/dL (0.0-1.0); Blood Urea Nitrogen 8 mg/dL (9-16); Calcium 8.5 mg/dL (8.4-10.2); Carbon Dioxide 22 mmol/L (22-29); Chloride 106 mmol/L (96-108); Estimated Glomerular Filt Rate > 60; Glucose Random 166 mg/dL (60-115); Potassium 3.9 mmol/L (3.3-5.1); Sodium 136 mmol/L (135-145); Total Protein 5.9 g/dL (6.5-8.0)
== END 2024-08-27 05:18 | disposition home or self-care (01) ==
LOC: HO.MMNH1L 05:17
PROVIDERS: Visit Provider Nurse Practitioner
DX: S72.91XD Unspecified fracture of right femur, subsequent encounter for closed fracture with routine healing (principal); E11.22 Type 2 diabetes mellitus with diabetic chronic kidney disease; N18.9 Chronic kidney disease, unspecified; G62.89 Other specified polyneuropathies
CPT/HCPCS: 36415; 80053; 85025

== ENCOUNTER 2024-08-30 05:42 | Emergency (ER) | payer MEDICARE, SELFPAY ==
[2024-08-30 05:45] VITALS: BP 124/74; PULSE 85; O2SAT 98
[2024-08-30 05:52] VITALS: BP 135/69; PULSE 85; RESP 14; TEMP 36.9; O2SAT 99; BMI 22.9
[2024-08-30 05:57] VITALS: BP 135/69; PULSE 85; RESP 14; TEMP 36.9; O2SAT 99
[2024-08-30 06:23] LABS: MANUAL DIFF FLAG NO
[2024-08-30 06:26] LABS: Basophils Absolute Auto 0.1 X10*3/uL (0.0-0.2); Eosinophils Absolute Auto 0.1 X10*3/uL (0.0-0.4); Hematocrit 37.4 % (42.0-52.0); Hemoglobin 12.2 g/dl (14.0-18.0); Imm Gran Abs Auto 0.06 X10*3/uL (0.00-0.03); Lymphocytes Absolute Auto 0.8 X10*3/uL (1.2-4.9); Lymphocytes Percent Auto 13.9 % (20-40); Mean Corpuscular HGB Conc 32.6 g/dl (31.0-36.0); Mean Corpuscular Hemoglobin 30.2 pg (27.0-33.0); Mean Corpuscular Volume 92.6 fL (80.0-98.0); Mean Platelet Volume 11.2 fL (9.4-12.4); Monocytes Absolute Auto 0.5 X10*3/uL (0.1-1.2); Monocytes Percent Auto 7.9 % (2-11); Neutrophils Absolute Auto 4.5 x10*3/uL (2.0-8.3); Neutrophils Percent Auto 74.2 % (45-73); Platelet Count 126 X10*3/uL (160-400); Red Blood Count 4.04 X10*6/uL (4.60-5.80); Red Cell Distribution Width 16.4 % (11.0-16.0); White Blood Count 6.1 X10*3/uL (4.8-10.8)
--- OUTSIDE RECORDS SUMMARY | 2024-08-30 06:26 | XMS_ITS | Continuity of Care Document ---
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 [address] [place] [address], [id number] , . tel: [phone] Referring Provider: Funmi Martin, [address] [place] [address], [place], [place], [facility]. tel:[phone] [facility], [address], [id number], tel:[phone] [facility] [place] Benign Eyelid Lesion 5 Lisa Joseph. [address] [place] [address], [id number] , . tel: [phone] Referring Provider: Funmi Martin, [address] [place] [address], [place], [address]. tel:[phone] [facility], [address] [place] [address], [id number], tel:[phone] [facility] [place] Benign Eyelid LesionBlepharitis 5 Lisa Joseph. [address] [place] [address], [id number] , . tel: [phone] Referring Provider: Funmi Martin, [address] [place] [address], [facility]. tel:[phone] Family History Family Member Type Diagnosis Age At Onset Maternal grandfather Problem (finding) Diabetes mellit Mother Problem (finding) cancer Brother Problem (finding) Diabetes mellitus Payers Payer name Insurance type Covered democrat ID Authoriza tianthony(s) BCBS [facility] Blue Shield [id number] Social History Type Description Quantity Date Captured [...]
[2024-08-30 06:46] LABS: Alanine Aminotransferase 22 U/L (0-40); Albumin Level 2.9 g/dL (3.5-5.0); Alkaline Phosphatase 184 U/L (39-117); Anion Gap 12 (12-20); Aspartate Amino Transferase 29 U/L (5-37); Bilirubin Total 0.6 mg/dL (0.0-1.0); Blood Urea Nitrogen 10 mg/dL (9-16); Calcium 8.7 mg/dL (8.4-10.2); Carbon Dioxide 24 mmol/L (22-29); Chloride 107 mmol/L (96-108); Creatinine Clr Calc Pharmacy 113.4; Estimated Glomerular Filt Rate > 60; Glucose Random 127 mg/dL (60-115); Potassium 3.9 mmol/L (3.3-5.1); Sodium 139 mmol/L (135-145)
--- NOTE | 2024-08-30 06:55 | ED_ITS ---
HPI - General Adult General Chief complaint: GI Bleed Stated complaint: SNF vomiting bright red blood since 4:45am no pain Time Seen by Provider: 08/30/24 06:50 Source: patient and EMS Mode of arrival: EMS Limitations: no limitations History of Present Illness ED Provider: Caitlin Andrade PA-C HPI narrative: Patient is a 69 year old assigned male at with a history of stroke with right sided deficit, CKD stage 2, cataracts, stage 4 colon cancer on chemo following with Dr. Tolbert, DM, and HTN presenting to the emergency department today with nausea and vomiting blood. Patient states that he was at his SNF and developed nausea then vomited blood so they sent him here. Patient denies any dizziness, lightheadedness, abdominal pain, fever, chills, blurry vision, double vision, loss of vision, chest pain, difficulty breathing, shortness of breath, back pain, night sweats, pain with urination, increased urinary frequency, increased urinary urgency, blood in his urine or stool, syncope or a near syncopal episode, recent trauma or falls, bowel incontinence, bladder incontinence, or any other complaints at this time. Relieving factors: none Exacerbating factors: none Associated symptoms: nausea/vomiting Treatments prior to arrival: none Related Data Home Medications ?Medication ?Instructions ?Recorded ?Confirmed blood sugar diagnostic #10 ea 07/28/20 05/19/24 pioglitazone 30 mg tablet (Actos) 30 mg PO DAILY 08/13/23 08/30/24 multivitamin 1 tab PO DAILY 10/29/23 08/30/24 lisinopril 20 mg tablet 20 mg PO DAILY 07/12/24 08/30/24 bisacodyl 10 mg rectal suppository 10 mg NE Q72H PRN Constipation 08/04/24 08/30/24 dextrose 40 % oral gel (Glucose 15 g PO Q15M PRN Hyproglycemia 08/04/24 08/30/24 Gel) glucagon 1 mg solution for 1 mg subcut Q1H PRN Hypoglycemia 08/04/24 08/30/24 injection lidocaine 4 % topical patch 1 patch topical DAILY 08/04/24 08/30/24 magnesium hydroxide 400 mg/5 mL 30 ml PO DAILY PRN Constipation 08/04/24 08/30/24 oral suspension (Milk of Magnesia) pantoprazole 40 mg tablet,delayed 40 mg PO DAILY@0630 08/04/24 08/30/24 release sodium phosphates 19 gram-7 118 ml NE DAILY PRN Constipation 08/04/24 08/30/24 gram/118 mL enema (Fleet Enema) acetaminophen 325 mg tablet 975 mg PO BID 08/30/24 08/30/24 amoxicillin 875 mg-potassium 1 tab PO BID 08/30/24 08/30/24 clavulanate 125 mg tablet aspirin 81 mg tablet,delayed 81 mg PO DAILY 08/30/24 08/30/24 release bethanechol chloride 50 mg tablet 50 mg PO DAILY 08/30/24 08/30/24 cyanocobalamin (vitamin B-12) 500 1,000 mcg PO DAILY 08/30/24 08/30/24 mcg tablet (Vitamin B-12) insulin glargine 100 unit/mL (3 10 unit subcut DAILY 08/30/24 08/30/24 mL) subcutaneous pen (Lantus Solostar U-100 Insulin) insulin lispro 100 unit/mL See Protocol subcut QIDACHS 08/30/24 08/30/24 subcutaneous solution (Admelog U-100 Insulin lispro) metformin 1,000 mg tablet 1,000 mg PO BID 08/30/24 08/30/24 pramipexole 0.5 mg tablet 0.5 mg PO BEDTIME 08/30/24 08/30/24 Previous Rx's ?Medication ?Instructions ?Recorded blood-glucose meter,continuous #1 ea 02/27/24 (FreeStyle Justina 3 Winfred) blood-glucose sensor (FreeStyle #2 ea 02/27/24 Justina 3 Sensor device) atorvastatin 40 mg tablet 40 mg PO DAILY 90 days #90 tabs 05/23/24 empagliflozin 10 mg tablet 10 mg PO DAILY #1 tab 08/11/24 (Jardiance) enoxaparin 40 mg/0.4 mL 40 mg (0.4 mL) subcut Q24H #4 mL 08/11/24 subcutaneous syringe Allergies Allergy/AdvReac Type Severity Reaction Status Date / Time No Known Allergies Allergy Verified 08/30/24 05:55 [No Known Allergies*] Review of Systems 2 Constitutional: Constitutional: Reports no additional constitutional complaints, Denies chills, Denies fever(s) and Denies night sweats Eyes: Eyes: Reports no additional eye complaints, Denies blurry vision, Denies change in vision, Denies diplopia, Denies eye discharge, Denies loss of vision and Denies eye pain ENT: Denies dizziness Cardiovascular: Cardiovascular: Reports no additional cardiovascular complaints, Denies chest pain, Denies lightheadedness, Denies Loss of Consciousness and Denies dyspnea Respiratory: Respiratory: Reports no additional respiratory complaints and Denies dyspnea Gastrointestinal: Gastrointestinal: Reports no additional gastrointestinal complaints, Denies abdominal pain, Denies melena, Denies hematochezia, Denies change in bowel habits, Denies change in stool character, Reports nausea, Reports vomiting and Reports hematemesis Genitourinary: Genitourinary: Reports no additional male genitourinary complaints, Denies hematuria, Denies oliguria, Denies difficulty urinating, Denies dysuria, Denies urinary frequency, Denies urinary hesitancy, Denies urinary incontinence and Denies urinary urgency Musculoskeletal: Musculoskeletal: Reports no additional musculoskeletal complaints, Denies numbness and Denies tingling Neurologic: Denies dizziness, Denies loss of vision, Denies numbness and Denies tingling Psychiatric: Psychiatric: Reports no additional psychiatric complaints Endocrine: Endocrine: Reports no additional endocrine complaints Hematologic/Lymphatic: Hematologic/Lymphatic: Reports no additional hematologic/lymphatic complaints Allergic/Immunologic: Allergic/Immunologic: Reports no additional allergic/immunologic complaints FOR[facility]LY [facility] Past Medical History Attestation statement: The following information was validated with the patient. Source: old records reviewed and nursing notes reviewed Medical History History of chemotherapy Stroke Ulnar neuropathy at elbow Sleep apnea Acute embolic stroke Xerosis cutis CKD (chronic kidney disease) stage 2, GFR 60-89 ml/min Persistent proteinuria Hypertensive nephrosclerosis Elevated alkaline phosphatase level Cataract Fuchs' corneal dystrophy Colon cancer RLS (restless legs syndrome) Obesity (BMI 30.0-34.9) Dyslipidemia Type 2 diabetes mellitus with diabetic polyneuropathy Hypertension Neuropathy Diabetes mellitus Erectile dysfunction Surgical History History of esophagogastroduodenoscopy (EGD) Hx of left cataract extraction Hx of cornea transplant History of colonoscopy (~03/15/19) History of colon resection (~04/20/19) Family History Family History Mother History of pancreatic cancer Father No problems noted. Brother Diabetes Maternal Grandmother Diabetes Social History Social History Household Members: None Housing: Condominium Housing Other:: REHAB Are you a primary career services manager to a significant other at home: No Do you presently have visiting nurse or other home services: No Alcohol intake: never Comment: currently in rehab and bedbound Patient Tobacco Use Status: Never used Tobacco e-Cigarette/Vaping Use: Never Used Second Hand Smoke Exposure: No Advance Directives Date on File: 04/16/19 service: No Current occupational status: retired Cognitive needs: No Hearing needs: No Vision needs: No Physical Exam ED Vital Signs: Vital Signs - 24 hr 08/30/24 05:52 08/30/24 05:57 08/30/24 08:30 Temperature 98.5 F 98.5 F 98 F Pulse Rate 85 85 76 Respiratory Rate 14 14 16 Blood Pressure 135/69 135/69 128/67 Pulse Oximetry 99 99 95 Oxygen Delivery Method Room Air Room Air Room Air 08/30/24 13:42 Temperature 98.3 F Pulse Rate 78 Respiratory Rate 18 Blood Pressure 113/58 L Pulse Oximetry 96 Oxygen Delivery Method Room Air BMI result Body Mass Index 22.9 Const General: cooperative, no acute distress, alert and awake Nutritional Appearance: well nourished Orientation/consciousness: patient oriented x3 Limitations: no limitations HENMT Head: Yes normal to inspection and Yes atraumatic Ears: hearing grossly normal bilaterally and external ears normal General nose exam: Normal external nose present, no nasal discharge noted and no epistaxis Face and sinus: Yes normal facial exam, No abrasion and No laceration Mouth: Normal oral and palatal mucosa present, no drooling and no muffled voice Eyes General: appearance normal, both eyes and all related structures Periorbital: periorbital findings normal Eyelids: Yes eyelids normal Conjunctivae: conjunctivae normal Pupils: Equal, round and reactive pupils present EOM: EOMs intact bilaterally Neck Neck: Yes normal visual inspection, Yes full ROM and Yes no lymphadenopathy Chest Chest palpation & inspection: normal inspection of the chest Resp Effort & Inspection: normal respiratory effort and able to speak in complete sentences GI Inspection: Yes normal to inspection Neuro General: patient oriented x3 and moves all extremities Cranial nerves: Yes Equal, round and reactive pupils present Cognition (Neuro): normal cognition Extrem General: Yes normal to inspection, Yes full ROM and Yes capillary refill normal Psych Appearance: grossly normal Mental Status: mental status grossly normal Affect: normal affect Attitude: cooperative Thought process: Normal thought process present Thought content: Normal thought content present Insight: Good insight present (Psych) Medications Administered Discontinued Medications Generic Name Dose Route Start Last Admin Trade Name Dirk PRN Reason Stop Dose Admin Oxymetazoline HCl 2 spray 08/30/24 11:16 08/30/24 11:23 Oxymetazoline Hcl 0.05 % Nasal 15 Ml Dola NOSTRIL-B 08/30/24 11:17 2 spray ONCE ONE Administration Pantoprazole Sodium 40 mg 08/30/24 06:59 08/30/24 07:21 Pantoprazole Sodium 40 Mg/10 Ml Vial IVPUSH 08/30/24 07:00 40 mg ONCE ONE Administration Silver Nitrate 1 appl 08/30/24 11:16 08/30/24 11:23 Silver Nitrate Applicator Stick..Ea. TOPICAL 08/30/24 11:17 1 appl ONCE ONE Administration Tranexamic Acid 500 mg 08/30/24 11:16 08/30/24 11:23 Tranexamic Acid 1,000 Mg/10 Ml Vial INTRANASAL 08/30/24 11:17 500 mg ONCE ONE Administration Procedures Epistaxis Control Time Out Performed: Yes (by Dr. Alcantar) Nostril: Yes left Direct inspection: Yes anterior source identified (by Dr. Alcantar) Direct inspection method: Yes otoscope (by Dr. Alcantar) Epistaxis treatment: Yes TXA soaked gauze (by Dr. Alcantar) and Yes silver nitrate cautery (by Dr. Alcantar) Results of treatment: Yes bleeding controlled and Yes treatment well tolerated Complications: Yes none Medical Decision Making Medical Decision Making MDM Narrative: Patient is a 69 year old assigned male at with a history of stroke with right sided deficit, CKD stage 2, cataracts, stage 4 colon cancer on chemo following with Dr. Tolbert, DM, and HTN presenting to the emergency department today with nausea and vomiting blood. Patient's physical exam was initially unremarkable. Patient's blood work was unremarkable. I consulted with GI who recommended medical admission for possible EGD after serial H&Hs. However, while in the department, the patient alerted us that he was now having a nose bleed and he may have been having a nose bleed the entire time but wasn't sure. Upon examination, the patient does have a left sided anterior nose bleed that is dripping into the back of the patient's throat. Dr. Alcantar used afrain, TXA, and was able to cauterize the visualized left nostril bleed and use silver nitrate to cauterize the area. Upon re-examination, the patient is no longer bleeding. The patient's source of bleeding causing the bloody vomit was most likely from the patient's left nostril nose bleed. I explained my physical exam findings as well as all test results to the patient. I answered all questions asked by the patient. I stressed the importance of the patient taking his medication as directed (either prescribed or as the over the counter packaging recommends). I stressed the importance of the patient following up with his primary care provider and with GI. I stressed the importance of the patient returning to the emergency department immediately if his symptoms were to worsen or if he were to develop any dizziness, shortness of breath, difficulty breathing, chest pain, blurry vision, loss of vision, nausea, vomiting, abdominal pain, fever, chills, back pain, or any other complaints. Patient verbalized agreement and understanding with this treatment plan and discharge. Differential Diagnosis Differential Diagnoses: The differential diagnosis associated with the presentation includes Epistaxis Gastric ulcer Upper GI bleeding Admission/Observation Consideration of admission/observation: Escalation of care including admission/observation considered Patient would have been admitted to the hospital had his work up had any findings where hospital admission was appropriate and his clinical presentation warranted hospital admission. Consult Healthcare Provider Management of the patient was discussed with: Filler Sifter Machine (spoke with the GI Team as noted in the MDM Rationale portion of this note. ) Lab Data [facility] Lab Attestation statement: I reviewed the patient's lab results. My interpretation of these results are in the MDM Rationale portion of this note. 08/30/24 06:19 08/30/24 06:28 Labs: Lab Results 08/30/24 08/30/24 08/30/24 Range/Units 06:19 06:28 09:00 WBC 6.1 (4.8-10.8) X10*3/uL RBC 4.04 L (4.60-5.80) X10*6/uL Hgb 12.2 L (14.0-18.0) g/dl Hct 37.4 L (42.0-52.0) % MCV 92.6 (80.0-98.0) fL MCH 30.2 (27.0-33.0) pg MCHC 32.6 (31.0-36.0) g/dl RDW 16.4 H (11.0-16.0) % Plt Count 126 L (160-400) X10*3/uL MPV 11.2 (9.4-12.4) fL Immature Gran % (Auto) 1.0 H (0.0-0.4) % Neut % (Auto) 74.2 H (45-73) % Lymph % (Auto) 13.9 L (20-40) % [place] % (Auto) 7.9 (2-11) % Eos % (Auto) 2.0 (0-4) % Baso % (Auto) 1.0 (0-2) % Lymph # (Auto) 0.8 L (1.2-4.9) X10*3/uL [place] # (Auto) 0.5 (0.1-1.2) X10*3/uL Eos # (Auto) 0.1 (0.0-0.4) X10*3/uL Baso # (Auto) 0.1 (0.0-0.2) X10*3/uL Abs Immat Gran (auto) 0.06 H (0.00-0.03) X10*3/uL Absolute Neuts (auto) 4.5 (2.0-8.3) x10*3/uL Absolute Nucleated RBC 0.000 (0.0-0.012) X10*3/uL Nucleated RBC % (auto) 0.0 (0.0-0.2) /100WBC Hold Purple Top SEE NOTE PT 13.6 H (10.9-12.4) SEC INR 1.2 H (0.9-1.1) APTT 34.1 (26.0-36.8) SEC Sodium 139 (135-145) mmol/L Potassium 3.9 D (3.3-5.1) mmol/L Chloride 107 (96-108) mmol/L Carbon Dioxide 24 (22-29) mmol/L Anion Gap 12 (12-20) BUN 10 (9-16) mg/dL Creatinine 0.63 (0.5-1.4) mg/dL Estim Creat Clear Calc 113.4 Estimated GFR > 60 Random Glucose 127 H (60-115) mg/dL Calcium 8.7 (8.4-10.2) mg/dL Total Bilirubin 0.6 (0.0-1.0) mg/dL AST 29 (5-37) U/L ALT 22 (0-40) U/L Alkaline Phosphatase 184 H (39-117) U/L Total Protein 6.0 L (6.5-8.0) g/dL Albumin 2.9 L (3.5-5.0) g/dL Independent Historian Clinical information obtained from an independent historian. History obtained from or confirmed by: EMS (EMS provided additional history and confirmed the history provided by the patient.) Chronic Conditions Patient?s care impacted by: Diabetes Critical Care Time Critical Care Time Critical Care Time: Yes Total Critical Care Time: 48 Attestation: I spent 48 minutes of Critical Care Time with this patient. This does not include time spent on separately reported billable procedures. Discharge Plan Discharge Clinical Impression: Anterior epistaxis, Vomiting blood Patient Disposition: Home, Self-Care Instructions: Nosebleed (ED), Hematemesis (ED) Additional Instructions: Your work up was reassuring. Your left nostril nose bleed was cauterized by the ED doctor and we confirmed it is no longer bleeding. Follow up with your primary care provider. Return to the emergency department immediately if your symptoms worsen or if you develop any dizziness, shortness of breath, difficulty breathing, chest pain, blurry vision, loss of vision, nausea, vomiting, abdominal pain, fever, chills, back pain, or any other complaints. Prescriptions: No Action atorvastatin 40 mg tablet 40 mg PO DAILY 90 Days Qty: 90 1RF pioglitazone [Actos] 30 mg tablet 30 mg PO DAILY multivitamin Tablet 1 tab PO DAILY lidocaine 4 % Adhesive Patch,Medicated 1 patch TOPICAL DAILY Rx Instructions: For 12 hours on, then remove dextrose [Glucose Gel] 40 % Gel 15 g PO Q15M PRN (Reason: Hyproglycemia) Rx Instructions: until symptoms of low blood sugar are controlled magnesium hydroxide [Milk of Magnesia] 400 mg/5 mL Suspension 30 ml PO DAILY PRN (Reason: Constipation) bisacodyl 10 mg Suppository 10 mg NE Q72H PRN (Reason: Constipation) Rx Instructions: if no BM and MoM ineffective pantoprazole 40 mg Tablet,Delayed Release (Dr/Ec) 40 mg PO DAILY@0630 Fleet Enema 19-7 gram/118 mL Enema 118 ml NE DAILY PRN (Reason: Constipation) glucagon 1 mg Recon Soln 1 mg SUBCUT Q1H PRN (Reason: Hypoglycemia) Rx Instructions: until target blood sugar attained enoxaparin 40 mg/0.4 mL Syringe 40 mg subcut Q24H Qty: 4 0RF Rx Instructions: need 6 weeks -intiated on 08/07/24 ( end date on 09/18/24) Jardiance 10 mg Tablet 10 mg PO DAILY Qty: 1 0RF lisinopril 20 mg tablet 20 mg PO DAILY aspirin [Aspir-81] 81 mg Tablet,Delayed Release (Dr/Ec) 81 mg PO DAILY amoxicillin-pot clavulanate 875-125 mg tablet 1 tab PO BID Patient Comments: End date 09/05/24 acetaminophen 325 mg Tablet 975 mg PO BID pramipexole 0.5 mg tablet 0.5 mg PO BEDTIME cyanocobalamin (vitamin B-12) [Vitamin B-12] 500 mcg Tablet 1,000 mcg PO DAILY metformin 1,000 mg tablet 1,000 mg PO BID insulin glargine [Lantus Solostar U-100 Insulin] 100 unit/mL (3 mL) insulin pen 10 unit subcut DAILY bethanechol chloride 50 mg tablet 50 mg PO DAILY insulin lispro [Admelog U-100 Insulin lispro] 100 unit/mL solution See Protocol subcut QIDACHS Protocol: Insulin Correction Scale Less than or equal to 110 ---- Give (units): 0 111 to 150 Give (units): 2 151 to 200 Give (units): 2 201 to 250 Give (units): 3 251 to 300 Give (units): 3 301 to 350 Give (units): 4 Greater than 350 Give (units): 4 Call MD if Blood Glucose > : 350 (DME) blood sugar diagnostic Strip See Rx Instructions .ROUTE TID Qty: 10 Rx Instructions: As directed (DME) FreeStyle Justina 3 Sensor Device See Rx Instructions .ROUTE .MEDSUPPLY Qty: 2 11RF Rx Instructions: Apply every 14 days As directed (DME) FreeStyle Justina 3 Winfred Misc See Rx Instructions .ROUTE .MEDSUPPLY Qty: 1 0RF Rx Instructions: As directed Referrals: Mauri Dixon, ENTRY LEVEL ADMINISTRATIVE ASSISTANT-BC [Primary Care Provider] - Print Language: Zimbabwean
--- NOTE | 2024-08-30 07:08 | PHA.MEDREC ---
Pharmacy Consult ? Medication Reconciliation Pharmacy has completed the medication reconciliation. Utilized list from On[facility] Rhodes. Edwinin end date is 09/05/24.
[2024-08-30] MEDS: Pantoprazole Sodium 40 MG/10 ML VIAL IVPUSH (07:21)
[2024-08-30 08:30] VITALS: BP 128/67; PULSE 76; RESP 16; TEMP 36.6; O2SAT 95
[2024-08-30 09:19] LABS: INTERNATIONAL NORM RATIO 1.2 (0.9-1.1); Prothrombin Time 13.6 SEC (10.9-12.4)
[2024-08-30 09:21] LABS: Partial Thromboplastin Time 34.1 SEC (26.0-36.8)
--- NOTE | 2024-08-30 10:26 | PC.NURSE ---
patient vomited up bright red blood, PA is aware. denies any pain or nausea. Will continue to follow closely.
[2024-08-30] MEDS: Silver Nitrate Applicator STICK..EA. 1 APPL TOPICAL (11:23)
[2024-08-30] MEDS: Tranexamic Acid 1,000 MG/10 ML VIAL 500 MG INTRANASAL (11:23)
[2024-08-30] MEDS: Oxymetazoline HCl 0.05 % Nasal 15 ML SPRAY 2 SPRAY NOSTRIL-B (11:23)
[2024-08-30 13:42] VITALS: BP 113/58; PULSE 78; RESP 18; TEMP 36.8; O2SAT 96
[2024-08-30 14:07] LABS: Basophils Percent Auto 0.6 % (0-2); Eosinophils Absolute Auto 0.1 X10*3/uL (0.0-0.4); Eosinophils Percent Auto 1.9 % (0-4); Hematocrit 37.7 % (42.0-52.0); Hemoglobin 12.4 g/dl (14.0-18.0); Imm Gran Abs Auto 0.07 X10*3/uL (0.00-0.03); Imm Gran Pct Auto 1.1 % (0.0-0.4); Lymphocytes Absolute Auto 0.8 X10*3/uL (1.2-4.9); Lymphocytes Percent Auto 12.5 % (20-40); MANUAL DIFF FLAG SCAN; Mean Corpuscular HGB Conc 32.9 g/dl (31.0-36.0); Mean Corpuscular Hemoglobin 29.7 pg (27.0-33.0); Mean Corpuscular Volume 90.4 fL (80.0-98.0); Monocytes Absolute Auto 0.4 X10*3/uL (0.1-1.2); Neutrophils Absolute Auto 4.9 x10*3/uL (2.0-8.3); Neutrophils Percent Auto 76.9 % (45-73); PLT CLUMP 1; Red Blood Count 4.17 X10*6/uL (4.60-5.80); Red Cell Distribution Width 16.5 % (11.0-16.0); SCAN SMEAR FLAG 1
[2024-08-30 14:08] LABS: White Blood Count 6.3 X10*3/uL (4.8-10.8)
[2024-08-30 14:25] LABS: SLIDE REVIEW VERIFIED
[2024-08-30 19:32] VITALS: BP 135/74; PULSE 85; RESP 16; TEMP 36.3; O2SAT 95
== END 2024-08-30 20:00 | disposition home or self-care (01) ==
PROVIDERS: Physician Assistant Medical; Emergency Provider Emergency Medicine; PCP Nurse Practitioner Family
DX: R04.0 Epistaxis (principal); K92.0 Hematemesis; Z79.899 Other long term (current) drug therapy
CPT/HCPCS: 36415; 80048; 80053; 85025; 85610; 85730; 96374; 99284; J2470

== ENCOUNTER 2024-08-30 06:20 | Outpatient (REF) | payer MEDICARE, SELFPAY ==
[2024-08-30 05:42] LABS: MANUAL DIFF FLAG NO
[2024-08-30 06:21] LABS: Basophils Absolute Auto 0.1 X10*3/uL (0.0-0.2); Basophils Percent Auto 1.2 % (0-2); Eosinophils Absolute Auto 0.2 X10*3/uL (0.0-0.4); Eosinophils Percent Auto 2.7 % (0-4); Hematocrit 39.1 % (42.0-52.0); Hemoglobin 12.3 g/dl (14.0-18.0); Imm Gran Abs Auto 0.09 X10*3/uL (0.00-0.03); Imm Gran Pct Auto 1.5 % (0.0-0.4); Lymphocytes Percent Auto 17.1 % (20-40); Mean Corpuscular HGB Conc 31.5 g/dl (31.0-36.0); Mean Corpuscular Hemoglobin 30.2 pg (27.0-33.0); Mean Corpuscular Volume 96.1 fL (80.0-98.0); Monocytes Absolute Auto 0.5 X10*3/uL (0.1-1.2); Monocytes Percent Auto 8.3 % (2-11); Neutrophils Absolute Auto 4.1 x10*3/uL (2.0-8.3); Neutrophils Percent Auto 69.2 % (45-73); Platelet Count 143 X10*3/uL (160-400); Red Blood Count 4.07 X10*6/uL (4.60-5.80); White Blood Count 5.9 X10*3/uL (4.8-10.8)
--- OUTSIDE RECORDS SUMMARY | 2024-08-30 06:23 | XMS_ITS | Continuity of Care Document ---
Author Organization [facility] Address [address] [place] [phone] Phone Care Team Providers Care Web Ui Designer Name Role Phone Lisa Costa, Jake Unavailable [...] [facility], [address] [facility], [place], [place], [id number], tel:[phone] [facility] [place] Benign Eyelid Lesion 5 Lisa Joseph. [address] [place] [address], [id number] , . tel: [phone] Referring Provider: Funmi Martin, [address] [place] [address], [place], [place], [facility]. tel:[phone] [facility], [address], [id number], tel:[phone] [facility] [place] Benign Eyelid Lesion 5 Lisa Joseph. [address] [place] [address], [id number] , . tel: [phone] Referring Provider: Funmi Martin, [address] [place] [address], [place], [address]. tel:[phone] [facility], [address] [place] [address], [id number], tel:[phone] [facility] [place] Benign Eyelid LesionBlepharitis 5 Lisa Joseph. [address] [place] [address], [id number] , . tel: [phone] Referring Provider: Funmi Martin, [address] [place] [address], [facility]. tel:[phone] Family History Family Member Type Diagnosis Age At Onset Maternal grandfather Problem (finding) Diabetes mellit Mother Problem (finding) cancer Brother Problem (finding) Diabetes mellitus Payers Payer name Insurance type Covered green party ID Authoriza tianthony(s) BCBS [facility] Blue Shield [id number] Social History Type Description Quantity Date Captured [...]
[2024-08-30 06:42] LABS: Anion Gap 17 (12-20); Blood Urea Nitrogen 12 mg/dL (9-16); Calcium 8.8 mg/dL (8.4-10.2); Carbon Dioxide 19 mmol/L (22-29); Chloride 108 mmol/L (96-108); Estimated Glomerular Filt Rate > 60; Glucose Random 108 mg/dL (60-115); Sodium 139 mmol/L (135-145)
== END 2024-08-30 06:21 | disposition home or self-care (01) ==
LOC: HO.MMNH1L 06:20
PROVIDERS: Visit Provider Nurse Practitioner
DX: Z13.89 Encounter for screening for other disorder (principal)
CPT/HCPCS: 36415; 80048; 85025

== ENCOUNTER 2024-08-31 06:00 | Outpatient (REF) | payer MEDICARE, SELFPAY ==
[2024-08-31 06:06] LABS: MANUAL DIFF FLAG NO
--- OUTSIDE RECORDS SUMMARY | 2024-08-31 06:08 | XMS_ITS | Continuity of Care Document ---
Author Organization [facility] Address [address] [place] [phone] Phone Care Team Providers Care District Ranger Name Role Phone Lisa Costa, Jake Unavailable [...] [facility], [address] [facility], [place], [place], [id number], tel:[phone] [facility] [place] Benign Eyelid Lesion 5 Lisa Joseph. [address] [place] [address], [id number] , . tel: [phone] Referring Provider: Funmi Martin, [address] [place] [address], [place], [place], [facility]. [phone] [facility], [address], [id number], tel:[phone] [facility] [place] Benign Eyelid Lesion 5 Lisa Joseph. [address] [place] [address], [id number] , . tel: [phone] Referring Provider: Funmi Martin, [address] [place] [address], [place], [address]. tel:[phone] [facility], [address] [place] [address], [id number], tel:[phone] [facility] [place] Benign Eyelid LesionBlepharitis 5 Lisa Joseph. [address] [place] [address], [id number] , . tel: [phone] Referring Provider: Funmi Martin, [address] [place] [address], [facility]. tel:[phone] Family History Family Member Type Diagnosis Age At Onset Maternal grandfather Problem (finding) Diabetes mellit Mother Problem (finding) cancer Brother Problem (finding) Diabetes mellitus Payers Payer name Insurance type Covered libertarian ID Authoriza tianthony(s) BCBS [facility] Blue Shield [id number] Social History Type Description Quantity Date Captured [...]
[2024-08-31 07:02] LABS: Alanine Aminotransferase 26 U/L (0-40); Alkaline Phosphatase 189 U/L (39-117); Anion Gap 13 (12-20); Aspartate Amino Transferase 30 U/L (5-37); Bilirubin Total 0.6 mg/dL (0.0-1.0); Blood Urea Nitrogen 11 mg/dL (9-16); Calcium 8.1 mg/dL (8.4-10.2); Carbon Dioxide 24 mmol/L (22-29); Chloride 105 mmol/L (96-108); Estimated Glomerular Filt Rate > 60; Glucose Random 124 mg/dL (60-115); Potassium 3.9 mmol/L (3.3-5.1); Sodium 138 mmol/L (135-145); Total Protein 6.3 g/dL (6.5-8.0)
[2024-08-31 07:13] LABS: Basophils Absolute Auto 0.1 X10*3/uL (0.0-0.2); Basophils Percent Auto 1.2 % (0-2); Eosinophils Absolute Auto 0.1 X10*3/uL (0.0-0.4); Hematocrit 37.7 % (42.0-52.0); Hemoglobin 12.2 g/dl (14.0-18.0); Imm Gran Abs Auto 0.06 X10*3/uL (0.00-0.03); Lymphocytes Absolute Auto 0.9 X10*3/uL (1.2-4.9); Lymphocytes Percent Auto 15.8 % (20-40); Mean Corpuscular HGB Conc 32.4 g/dl (31.0-36.0); Mean Corpuscular Hemoglobin 29.4 pg (27.0-33.0); Mean Corpuscular Volume 90.8 fL (80.0-98.0); Mean Platelet Volume 11.6 fL (9.4-12.4); Monocytes Absolute Auto 0.6 X10*3/uL (0.1-1.2); Monocytes Percent Auto 9.7 % (2-11); Neutrophils Absolute Auto 4.2 x10*3/uL (2.0-8.3); Neutrophils Percent Auto 70.3 % (45-73); Platelet Count 125 X10*3/uL (160-400); Red Blood Count 4.15 X10*6/uL (4.60-5.80); Red Cell Distribution Width 16.6 % (11.0-16.0)
== END 2024-08-31 06:01 | disposition home or self-care (01) ==
LOC: HO.MMNH1L 06:00
PROVIDERS: Visit Provider Internal Medicine
DX: R78.81 Bacteremia (principal)
CPT/HCPCS: 36415; 80053; 85025

== ENCOUNTER 2024-09-01 12:51 | Outpatient (REF) | payer MEDICARE, SELFPAY ==
--- OUTSIDE RECORDS SUMMARY | 2024-09-01 12:58 | XMS_ITS | Continuity of Care Document ---
Author Organization [facility] Address [address] [place] [phone] Phone Care Team Providers Care Statistical Analyst Name Role Phone Lisa Costa, Jake Unavailable [...] [facility], [address], [place], [place], [id number], tel:[phone] [facility] [place] Benign Eyelid Lesion 5 Lisa Joseph. [address] [place] [address], [id number] , . tel: [phone] Referring Provider: Funmi Martin, [address] [place] [address], [place], [place], [facility]. [phone] [facility], [address], [id number], tel:[phone] [facility] [place] Benign Eyelid Lesion 5 Lisa Joseph. [address] [place] [address], [id number] , . tel: [phone] Referring Provider: Funmi Martin, [address] [place] [address], [place], [address]. tel:[phone] [facility], [address] [place] [address], [id number], tel:[phone] [facility] [place] Benign Eyelid LesionBlepharitis 5 Lisa Joseph. [address] [place] [address], [id number] , . tel: [phone] Referring Provider: Funmi Martin, [address] [place] [address], [facility]. tel:[phone] Family History Family Member Type Diagnosis Age At Onset Maternal grandfather Problem (finding) Diabetes mellit Mother Problem (finding) cancer Brother Problem (finding) Diabetes mellitus Payers Payer name Insurance type Covered constitution party ID Authoriza tianthony(s) BCBS [facility] Blue Shield [id number] Social History Type Description Quantity Date Captured [...]
== END 2024-09-01 12:52 | disposition home or self-care (01) ==
LOC: HO.HOSX 12:51
PROVIDERS: Visit Provider Physician Assistant
DX: Z13.89 Encounter for screening for other disorder (principal)

== ENCOUNTER 2024-09-03 08:46 | Outpatient (REF) | payer MEDICARE, SELFPAY ==
--- OUTSIDE RECORDS SUMMARY | 2024-09-03 08:53 | XMS_ITS | Continuity of Care Document ---
Author Organization [facility] Address [address] [place] [id number] Phone Care Team Providers Care Artist Blacksmith Name Role Phone Lisa Costa, Jake Unavailable [...] [facility], [address] [facility], [place], [place], [id number], tel:[phone] [facility] [place] Benign Eyelid Lesion 5 Lisa Joseph. [address] [place] [address], [id number] , . tel: [phone] Referring Provider: Funmi Martin, [address] [place] [address], [place], [place], [facility]. tel:[phone] [facility], [address], [id number], tel:[phone] [facility] [place] Benign Eyelid Lesion 5 Lisa Joseph. [address] [place] [address], [id number] , . tel: [phone] Referring Provider: Funmi Martin, [address] [place] [address], [place], [address]. tel:[phone] [facility], [address] [place] [address], [id number], tel:[phone] [facility] [place] Benign Eyelid LesionBlepharitis 5 Lisa Joseph. [address] [place] [address], [id number] , . tel: [phone] Referring Provider: Funmi Martin, [address] [place] [address], [facility]. tel:[phone] Family History Family Member Type Diagnosis Age At Onset Maternal grandfather Problem (finding) Diabetes mellit Mother Problem (finding) cancer Brother Problem (finding) Diabetes mellitus Payers Payer name Insurance type Covered republican ID Authoriza tianthony(s) BCBS [facility] Blue Shield [id number] Social History Type Description Quantity Date Captured [...]
== END 2024-09-03 08:47 | disposition home or self-care (01) ==
LOC: HO.HOSX 08:46
PROVIDERS: Visit Provider Physician Assistant
DX: M25.551 Pain in right hip (principal); S72.001A Fracture of unspecified part of neck of right femur, initial encounter for closed fracture
CPT/HCPCS: 73502; 99212

== ENCOUNTER 2024-09-03 09:40 | Outpatient (AMB) | payer MEDICARE, SELFPAY ==
--- OUTSIDE RECORDS SUMMARY | 2024-09-03 09:43 | XMS_ITS | Continuity of Care Document ---
Author Organization [facility] Address [address] [place] [phone] Phone Care Team Providers Care Flow Manager Name Role Phone Lisa Costa, Jake Unavailable [...] [facility], [address] [facility], [place], [place], [id number], tel:[phone] [facility] [place] Benign Eyelid Lesion 5 Lisa Joseph. [address] [place] [address], [id number] , . tel: [phone] Referring Provider: Funmi Martin, [address] [place] [address], [place], [place], [facility]. tel:[phone] [facility], [address], [id number], tel:[phone] [facility] [place] Benign Eyelid Lesion 5 Lisa Joseph. [address] [place] [address], [id number] , . tel: [phone] Referring Provider: Funmi Martin, [address] [place] [address], [place], [address]. tel:[phone] [facility], [address] [place] [address], [id number], tel:[phone] [facility] [place] Benign Eyelid LesionBlepharitis 5 Lisa Joseph. [address] [place] [address], [id number] , . tel: [phone] Referring Provider: Funmi Martin, [address] [place] [address], [facility]. tel:[phone] Family History Family Member Type Diagnosis Age At Onset Maternal grandfather Problem (finding) Diabetes mellit Mother Problem (finding) cancer Brother Problem (finding) Diabetes mellitus Payers Payer name Insurance type Covered democrat ID Authoriza tianthony(s) BCBS [facility] Blue Shield [id number] Social History Type Description Quantity Date Captured [...]
--- NOTE | 2024-09-03 09:57 | A.OFFVIS_ITS ---
Intake Visit Reasons: PO Rt hip mikey 08/06/24 NE Intake Note: Navarro a 69 year old male who presents today for a post operative right hip mikey, DOS 08/06/24 NE. Patient reports he is doing well, states his pain has been tolerable and has not need Tylenol as much. Allergies No Known Allergies [No Known Allergies*] Allergy (Verified 09/03/24 10:03) HPI HPI PO Rt hip mikey 08/06/24 NE: Details: 69-year-old male who returns to the office today for post-op right hip hemiarthroplasty, 08/06/[address] [place]. He states he has tolerable pain in his hip however he is doing well overall. He has been able to ambulate with a walker. He has no concerns today. [facility] Medical History (Updated 08/31/24 @ 00:02 by Juan Ham) History of chemotherapy Stroke Ulnar neuropathy at elbow Sleep apnea Acute embolic stroke Xerosis cutis CKD (chronic kidney disease) stage 2, GFR 60-89 ml/min Persistent proteinuria Hypertensive nephrosclerosis Elevated alkaline phosphatase level Cataract Fuchs' corneal dystrophy Colon cancer RLS (restless legs syndrome) Obesity (BMI 30.0-34.9) Dyslipidemia Type 2 diabetes mellitus with diabetic polyneuropathy Hypertension Neuropathy Diabetes mellitus Erectile dysfunction Surgical History (Updated 09/03/24 @ 10:04 by Kim Wilburn [facility]) History of nasal cauterization History of esophagogastroduodenoscopy (EGD) Hx of left cataract extraction Hx of cornea transplant History of colonoscopy (~03/15/19) History of colon resection (~04/20/19) Family History Mother History of pancreatic cancer Father No problems noted. Brother Diabetes Maternal Grandmother Diabetes Social History Household Members: None Housing: Condominium Housing Other:: REHAB Are you a primary skin care specialist to a significant other at home: No Do you presently have visiting nurse or other home services: No Alcohol intake: never Comment: currently in rehab and bedbound Patient Tobacco Use Status: Never used Tobacco e-Cigarette/Vaping Use: Never Used Second Hand Smoke Exposure: No Advance Directives Date on File: 08/02/19 service: No Current occupational status: retired Cognitive needs: No Hearing needs: No Vision needs: No Review of Systems Const All systems reviewed & are unremarkable except as noted in HPI and below Physical Exam Extrem Other: Right hip: Incision well healed. No redness or drainage. he has no pain with ROM of hip or hip flexion. Calf supple, nontender. NVI. Results Reviewed Results Reviewed: Xrays were obtained in the office today and personally reviewed by me of the right hip show stable hip prosthesis Assessment & Plan Assessment & Plan (1) Displaced fracture of right femoral neck: Code(s): S72.001A - Fracture of unspecified part of neck of right femur, initial encounter for closed fracture Category: Medical Plan He will work with physical therapy for gait training and strengthening. He will continue weight bearing as tolerated. I would like to see him back in 6 weeks with new x-rays, sooner if needed. Orders: Orders XR hip RT min 2V Today M25.551 - Pain in right hip Patient Instructions: Scribed for Sis Mendoza PA-C, by [facility] biller, on 09/03/2024 at 9:45 AM EST.? I, Sis Mendoza PA-C, have personally reviewed and agree with the information entered by the scribe. Coding Level of Care Code Global (49362) Diagnoses Displaced fracture of right femoral neck S72.001A
== END 2024-09-03 10:40 | disposition home or self-care (01) ==
PROVIDERS: PCP Nurse Practitioner Family; Visit Provider Physician Assistant
DX: S72.001A Fracture of unspecified part of neck of right femur, initial encounter for closed fracture (principal)
CPT/HCPCS: 99024

== ENCOUNTER 2024-09-06 07:11 | Outpatient (REF) | payer MEDICARE, SELFPAY ==
[2024-09-06 06:17] LABS: MANUAL DIFF FLAG NO
[2024-09-06 06:55] LABS: Basophils Absolute Auto 0.1 X10*3/uL (0.0-0.2); Basophils Percent Auto 1.2 % (0-2); Eosinophils Absolute Auto 0.1 X10*3/uL (0.0-0.4); Eosinophils Percent Auto 2.6 % (0-4); Hematocrit 38.4 % (42.0-52.0); Hemoglobin 12.3 g/dl (14.0-18.0); Imm Gran Abs Auto 0.03 X10*3/uL (0.00-0.03); Imm Gran Pct Auto 0.7 % (0.0-0.4); Lymphocytes Absolute Auto 0.9 X10*3/uL (1.2-4.9); Lymphocytes Percent Auto 20.8 % (20-40); Mean Corpuscular Volume 93.7 fL (80.0-98.0); Monocytes Absolute Auto 0.4 X10*3/uL (0.1-1.2); Monocytes Percent Auto 8.4 % (2-11); Neutrophils Absolute Auto 2.8 x10*3/uL (2.0-8.3); Neutrophils Percent Auto 66.3 % (45-73); Red Cell Distribution Width 16.7 % (11.0-16.0); White Blood Count 4.3 X10*3/uL (4.8-10.8)
--- OUTSIDE RECORDS SUMMARY | 2024-09-06 07:15 | XMS_ITS | Continuity of Care Document ---
Author Organization [facility] Address [address] [place] [phone] Phone Care Team Providers Care Educational Therapist Name Role Phone Lisa Costa, Jake Unavailable [...] [facility], [address] [facility], [place], [place], [id number], tel:[phone] [facility] [place] Benign Eyelid Lesion 5 Lisa Joseph. [address] [place] [address], [id number] , . tel: [phone] Referring Provider: Funmi Martin, [address] [place] [address], [place], [place], [facility]. tel:[phone] [facility], [address], [id number], tel:[phone] [facility] [place] Benign Eyelid Lesion 5 Lisa Joseph. [address] [place] [address], [id number] , . tel: [phone] Referring Provider: Funmi Martin, [address] [place] [address], [place], [address]. tel:[phone] [facility], [address] [place] [address], [id number], tel:[phone] [facility] [place] Benign Eyelid LesionBlepharitis 5 Lisa Joseph. [address] [place] [address], [id number] , . tel: [phone] Referring Provider: Funmi Martin, [address] [place] [address], [facility]. tel:[phone] Family History Family Member Type Diagnosis Age At Onset Maternal grandfather Problem (finding) Diabetes mellit Mother Problem (finding) cancer Brother Problem (finding) Diabetes mellitus Payers Payer name Insurance type Covered democrat ID Authoriza tianthony(s) BCBS [facility] Blue Shield [id number] Social History Type Description Quantity Date Captured [...]
[2024-09-06 07:16] LABS: Anion Gap 14 (12-20); Blood Urea Nitrogen 16 mg/dL (9-16); Calcium 8.9 mg/dL (8.4-10.2); Carbon Dioxide 22 mmol/L (22-29); Chloride 108 mmol/L (96-108); Estimated Glomerular Filt Rate > 60; Glucose Random 100 mg/dL (60-115); Sodium 140 mmol/L (135-145)
[2024-09-06 07:48] LABS: Platelet Count 87 X10*3/uL (160-400)
== END 2024-09-06 07:12 | disposition home or self-care (01) ==
LOC: HO.MMNH1L 07:11
PROVIDERS: Visit Provider Nurse Practitioner
DX: E11.22 Type 2 diabetes mellitus with diabetic chronic kidney disease (principal); N18.9 Chronic kidney disease, unspecified; S72.91XD Unspecified fracture of right femur, subsequent encounter for closed fracture with routine healing; G62.89 Other specified polyneuropathies
CPT/HCPCS: 36415; 80048; 85025

== ENCOUNTER 2024-09-11 09:55 | Outpatient (REF) | payer MEDICARE, SELFPAY ==
[2024-09-11 09:58] LABS: MANUAL DIFF FLAG NO
[2024-09-11 10:13] LABS: Basophils Percent Auto 0.2 % (0-2); Eosinophils Absolute Auto 0.1 X10*3/uL (0.0-0.4); Eosinophils Percent Auto 0.8 % (0-4); Hematocrit 37.4 % (42.0-52.0); Hemoglobin 12.4 g/dl (14.0-18.0); Imm Gran Abs Auto 0.05 X10*3/uL (0.00-0.03); Imm Gran Pct Auto 0.6 % (0.0-0.4); Lymphocytes Absolute Auto 0.9 X10*3/uL (1.2-4.9); Lymphocytes Percent Auto 10.3 % (20-40); Mean Corpuscular HGB Conc 33.2 g/dl (31.0-36.0); Mean Corpuscular Volume 90.6 fL (80.0-98.0); Mean Platelet Volume 12.8 fL (9.4-12.4); Monocytes Absolute Auto 0.9 X10*3/uL (0.1-1.2); Monocytes Percent Auto 11.2 % (2-11); Neutrophils Absolute Auto 6.3 x10*3/uL (2.0-8.3); Neutrophils Percent Auto 76.9 % (45-73); Red Blood Count 4.13 X10*6/uL (4.60-5.80); Red Cell Distribution Width 17.2 % (11.0-16.0); White Blood Count 8.3 X10*3/uL (4.8-10.8)
--- OUTSIDE RECORDS SUMMARY | 2024-09-11 10:13 | XMS_ITS | Continuity of Care Document ---
Author Organization [facility] Address [address] [place] [phone] Phone Care Team Providers Care Catering Cook Name Role Phone Lisa Costa, Jake Unavailable [...] [facility], [address] [facility], [place], [place], [id number], tel:[phone] [facility] [place] Benign Eyelid Lesion 5 Lisa Joseph. [address] [place] [address], [id number] , . tel: [phone] Referring Provider: Funmi Martin, [address] [place] [address], [place], [place], [facility]. tel:[phone] [facility], [address], [id number], tel:[phone] [facility] [place] Benign Eyelid Lesion 5 Lisa Joseph. [address] [place] [address], [id number] , . tel: [phone] Referring Provider: Funmi Martin, [address] [place] [address], [place], [address]. tel:[phone] [facility], [address] [place] [address], [id number], tel:[phone] [facility] [place] Benign Eyelid LesionBlepharitis 5 Lisa Joseph. [address] [place] [address], [id number] , . tel: [phone] Referring Provider: Funmi Martin, [address] [place] [address], [facility]. tel:[phone] Family History Family Member Type Diagnosis Age At Onset Maternal grandfather Problem (finding) Diabetes mellit Mother Problem (finding) cancer Brother Problem (finding) Diabetes mellitus Payers Payer name Insurance type Covered constitution party ID Authoriza tianthony(s) BCBS [facility] Blue Shield [id number] Social History Type Description Quantity Date Captured [...]
[2024-09-11 10:15] LABS: Platelet Count 79 X10*3/uL (160-400)
[2024-09-11 10:27] LABS: Anion Gap 15 (12-20); Blood Urea Nitrogen 25 mg/dL (9-16); Calcium 8.5 mg/dL (8.4-10.2); Carbon Dioxide 22 mmol/L (22-29); Chloride 103 mmol/L (96-108); Estimated Glomerular Filt Rate > 60; Glucose Random 111 mg/dL (60-115); Potassium 4.4 mmol/L (3.3-5.1); Sodium 136 mmol/L (135-145)
== END 2024-09-11 09:56 | disposition home or self-care (01) ==
LOC: HO.MMNH1L 09:55
PROVIDERS: Visit Provider Nurse Practitioner
DX: K83.1 Obstruction of bile duct (principal); S72.91XD Unspecified fracture of right femur, subsequent encounter for closed fracture with routine healing
CPT/HCPCS: 36415; 80048; 85025

== ENCOUNTER 2024-10-04 05:56 | Outpatient (REF) | payer MEDICARE, SELFPAY ==
[2024-10-04 06:21] LABS: MANUAL DIFF FLAG NO
[2024-10-04 06:59] LABS: Basophils Absolute Auto 0.1 X10*3/uL (0.0-0.2); Basophils Percent Auto 1.2 % (0-2); Eosinophils Absolute Auto 0.3 X10*3/uL (0.0-0.4); Eosinophils Percent Auto 7.2 % (0-4); Hematocrit 41.6 % (42.0-52.0); Hemoglobin 13.3 g/dl (14.0-18.0); Imm Gran Abs Auto 0.02 X10*3/uL (0.00-0.03); Imm Gran Pct Auto 0.5 % (0.0-0.4); Lymphocytes Absolute Auto 0.7 X10*3/uL (1.2-4.9); Lymphocytes Percent Auto 16.3 % (20-40); Mean Corpuscular Hemoglobin 29.6 pg (27.0-33.0); Mean Corpuscular Volume 92.7 fL (80.0-98.0); Mean Platelet Volume 12.5 fL (9.4-12.4); Monocytes Absolute Auto 0.4 X10*3/uL (0.1-1.2); Monocytes Percent Auto 9.3 % (2-11); Neutrophils Absolute Auto 2.8 x10*3/uL (2.0-8.3); Neutrophils Percent Auto 65.5 % (45-73); Red Blood Count 4.49 X10*6/uL (4.60-5.80); Red Cell Distribution Width 16.8 % (11.0-16.0); White Blood Count 4.3 X10*3/uL (4.8-10.8)
[2024-10-04 07:03] LABS: Platelet Count 76 X10*3/uL (160-400)
[2024-10-04 07:31] LABS: Anion Gap 12 (12-20); Blood Urea Nitrogen 21 mg/dL (9-16); Calcium 8.4 mg/dL (8.4-10.2); Carbon Dioxide 21 mmol/L (22-29); Chloride 107 mmol/L (96-108); Estimated Glomerular Filt Rate > 60; Glucose Random 44 mg/dL (60-115); Sodium 136 mmol/L (135-145)
== END 2024-10-04 05:57 | disposition home or self-care (01) ==
LOC: HO.MMNH1L 05:56
PROVIDERS: Visit Provider Nurse Practitioner
DX: E11.22 Type 2 diabetes mellitus with diabetic chronic kidney disease (principal); G62.89 Other specified polyneuropathies; S72.91XD Unspecified fracture of right femur, subsequent encounter for closed fracture with routine healing
CPT/HCPCS: 36415; 80048; 85025

== ENCOUNTER 2024-10-05 15:34 | Outpatient (AMB) | payer MEDICARE, SELFPAY ==
--- NOTE | 2024-10-05 15:37 | A.OFFPC_ITS ---
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: No Accompanied by: Self / Same As Patient Allergies No Known Allergies [No Known Allergies*] Allergy (Verified 10/05/24 16:57) Medication List - Last Reconciled 10/05/24 by STACEY Morrissey acetaminophen 975 mg PO BID aspirin 81 mg PO DAILY atorvastatin 40 mg PO DAILY 90 days blood sugar diagnostic As directed blood-glucose meter,continuous (3NodStyle Justina 3 [place]ley) As directed blood-glucose sensor (FreeStyle Justina 3 Sensor device) Apply every 14 days As directed cyanocobalamin (vitamin B-12) (Vitamin B-12) 1,000 mcg PO DAILY empagliflozin (Jardiance) 25 mg PO DAILY furosemide 40 mg PO DAILY insulin glargine (Lantus Solostar U-100 Insulin) 33 units subcut DAILY insulin lispro 1 sliding scale dose subcut USEASDIRECTD lisinopril 20 mg PO DAILY metformin 1,000 mg PO BID multivitamin 1 tab PO DAILY pantoprazole 40 mg PO DAILY@0630 pramipexole 0.5 mg PO BEDTIME Tobacco use date assessed: 10/05/24 Fall risk assessment: No Falls in past year Last assessed Fall Risk: 10/05/24 Dental Screening Dental Screen Date: 10/05/24 Did you have a dental visit in the last 12 months?: Yes Did you have a dental problem in the last 6 months where you did not have access to dental care?: No Was dental information given to patient?: Patient has dentist HPI Annual PE HPI Details Chief Complaint Post-operative and rehabilitation follow-up after multiple hospitalizations. History of Present Illness The patient is a 69-year-old male presenting for a physical examination and follow-up care after several hospitalizations in recent months. The medical concerns began with a fall approximately three weeks before August 06, 2024, resulting in a significant femur fracture and a displaced oblique fracture of the right femoral neck. Surgical intervention was performed on August 06, 2024, which the patient tolerated well. During the fall, the patient also sustained a head abrasion; however, a CT of the head and cervical spine was negative for any injury, and neurology found no neuropathic impingement. The patient?s medical history includes a prior cerebrovascular accident with residual deficits on the right side, hypertension, type 2 diabetes mellitus, and colon cancer (2018) with liver metastasis diagnosed in July 2023. Post- surgery, the patient experienced abdominal discomfort and was diagnosed with hepatic abscesses in August 2024. Interventional radiology placed a pigtail drain from August 23 through September 10, 2024, and biliary stents were placed for strictures. The patient became septic and hypotensive, requiring ICU admission and pressor support. Imaging showed moderate pneumoperitoneum and significant improvement in the left lobe abscess, although two new abscesses were suspected. The patient?s blood pressure stabilized, allowing pressor weaning, and additional biliary intervention with new stent placement was done. Complications included VRE bacteremia treated with antibiotics. Echo noted heart failure with reduced ejection fraction and the patient was managed with IV Lasix. He currently takes oral Lasix 40 mg daily. Echocardiography revealed no vegetation but noted a [id number] septal wall hypokinetic area, and apex is akinetic. The distal lateral wall is akinetic. Liver function improved and he continued on Augmentin until October 02, 2024. Future imaging, including a repeat CT of the abdomen and pelvis and monitoring with an echocardiogram, was planned. The patient is following up with infectious disease, gastroenterology, and oncology teams. He lacks a cardiology follow-up but plans an EKG next week??? Lisinopril has been held due to low blood pressures. He is in rehabilitation for right lower extremity weakness, retains good upper body strength, and his surgical incision is well-healed (right hip). Despite the dry, dusky appearance of his feet and onychomycosis, pedal pulses are weak or absent, with positive sensation, + cap refill. Social History - The patient is currently residing in a rehabilitation facility for right lower extremity strength training. - Plan to move to an assisted living [facility] was highly recommended and is underway. - Patient appears positive, alert, and o riented. Health Maintenance Review of Systems - Musculoskeletal: Reports weakness in r ight lower extremity. - Cardiovascular: Denies current chest p ain. - Neurological: Denies headaches post-fa ll. -denies any pinedo, dizziness, SOB, N/V, fev ers, chills, blood in stool. Physical Exam General: Cooperative, healthy appearing, comfortable, no acute distress and well developed Orientation: Patient oriented x3 Limitations: Right lower extremity weakness related to the hip fracture Head: Small abrasion on top of the head, well healed Ears: Hearing grossly normal bilaterally Nose: Normal external nose present Face and sinus: Normal facial exam Eyes: Appearance normal, both eyes and all related structures Neck: Normal visual inspection and Yes full ROM Respiratory: Normal respiratory effort and able to speak in complete sentences. Clear to auscultation bilaterally Cardiovascular: Regular rate and rhythm. Normal S1 and S2. GI: Normal to inspection. Soft to palpation and nontender Skin: No rashes or lesions noted. Significant onychomycosis noted bilaterally to feet, feet with positive sensation. Right upper chest port present. sensation. Dusky appearing with absent or weak pedal pulses. Very dry skin., + cap refill Neuro: Patient oriented x3. History of CVA with residual right-sided deficits Extremities: Upper body strength noted. Skinnier bilateral lower extremities. Right hip incision well healed, no signs of surrounding infection. Leg flexion and extension noted, though slightly weak, same with knee flexion and extension. Feet intact bilaterally. right qureshi with linear scab, no signs of surrounding infection Results - CT of head and C spine: Negative for n europathic involvement. - CT of abdomen and pelvis: due next karol fu (scheduled) - Echocardiogram: No vegetation present (noted above) Plan - Continue current Lasix regimen and mon itor fluid retention. - Hold Lisinopril pending blood pressure stability. - Repeat CT of abdomen and pelvis for li tammi abscesses., follow up with GI - Continue GI/ID follow-up for biliary i ssues - Pursue outpatient echocardiogram and e ngage cardiology for ongoing heart failure management. - Maintain chemotherapy for metastatic c olon cancer under hematology oncology guidance. - Monitor hepatic function and manage an tibiotics as per infectious disease follow-up. Patient was informed and verbally consented to the use of an ambient scribe for clinic note documentation during this visit. Discussion Notes I reviewed the surgery outcomes and recent hospital course with the patient, noting successful navigation through the intermediate acute complications. We discussed the importance of cardiology follow-up to assess heart failure and further explore his echocardiogram findings. I explained the rationale for holding Lisinopril until blood pressures stabilize and emphasized ongoing management of his liver complications with scheduled re-imaging and consultations with gastroenterology and infectious disease specialists. I recommended continuing current rehabilitation efforts and outlines for assisted living transitions. The patient voiced understanding and agreement with this plan and expressed optimism about his recovery trajectory. Patient Instructions - Continue current medications as prescr ibed. - Attend cardiology evaluation next week for EKG (?) - Follow up with scheduled GI and infect ious disease appointments. - Proceed as planned to assisted living facility. - Maintain communication with rehabilita tion staff for ongoing physical therapy. - Notify care providers promptly if any new symptoms arise or existing symptoms worsen. [facility] Medical History (Updated 10/05/24 @ 16:56 by Mauri Dixon [facility]) Sepsis History of chemotherapy Stroke Ulnar neuropathy at elbow Sleep apnea Acute embolic stroke Xerosis cutis CKD (chronic kidney disease) stage 2, GFR 60-89 ml/min Persistent proteinuria Hypertensive nephrosclerosis Elevated alkaline phosphatase level Cataract Fuchs' corneal dystrophy Colon cancer RLS (restless legs syndrome) Obesity (BMI 30.0-34.9) Dyslipidemia Type 2 diabetes mellitus with diabetic polyneuropathy Hypertension Neuropathy Diabetes mellitus Erectile dysfunction Surgical History History of nasal cauterization History of esophagogastroduodenoscopy (EGD) Hx of left cataract extraction Hx of cornea transplant History of colonoscopy (~03/15/19) History of colon resection (~04/20/19) Family History Mother History of pancreatic cancer Father No problems noted. Brother Diabetes Maternal Grandmother Diabetes Social History Household Members: None Housing: Condominium Housing Other:: REHAB Are you a primary career placement specialist to a significant other at home: No Do you presently have visiting nurse or other home services: No Alcohol intake: never Comment: currently in rehab and bedbound Patient Tobacco Use Status: Never used Tobacco e-Cigarette/Vaping Use: Never Used Second Hand Smoke Exposure: No Advance Directives Date on File: 04/16/19 service: No Current occupational status: retired Cognitive needs: No Hearing needs: No Vision needs: No Questionnaire PHQ-9 Over the last 2 weeks, how often have you been bothered by any of the following problems? 1. Little interest or pleasure in doing things: not at all 2. Feeling down, depressed, or hopeless: not at all 3. Trouble falling or staying asleep, or sleeping too much: not at all 4. Feeling tired or having little energy: not at all 5. Poor appetite or overeating: not at all 6. Feeling bad about yourself - or that you are a failure or have let yourself or your family down: not at all 7. Trouble concentrating on things, such as reading the newspaper or watching television: not at all 8. Moving or speaking so slowly that other people could have noticed. Or the opposite - being so fidgety or restless that you have been moving around a lot more than usual: not at all 9. Thoughts that you would be better off or of hurting yourself in some way: not at all Total score: 0 Depression Screening Interpretation: Negative Depression Screening Done: Yes 15713 - PHQ-9 Billing: Yes Source: Developed by Drs. Giorgi Glover, Deepthi Tyler, Felipe Gauthier and colleagues, with an educational charley from [employer]. Thrive Questionnaire Date Thrive assessed: 10/05/24 I am a: Patient What is your living situation today?: I have a steady place to live Within the past 12 months, did the food you bought not last and you didn't have the money to get more?: Never true Within the past 12 months, did you worry whether your food would run out before you got money to buy more?: Never true Do you have trouble paying for medicines?: No Do you have trouble getting transportation to medical appointments?: Yes Do you have trouble paying your heating and electricity bill?: No Do you have trouble taking care of your child, family member or friend?: No Do you have trouble with day-to-day activities such as bathing, preparing meals, shopping, managing finances, etc.?: No Are you currently unemployed and looking for a job?: No Are you interested in more education?: No Please select the resources that you would like help with: Transportation Currently or been in a relationship where the following occur: No concerns reported THRIVE Score: 1 AUDIT C Alcohol Use Questionnaire (AUDIT-C) 1. How often do you have a drink containing alcohol?: Never 2. How many drinks containing alcohol do you have on a typical day when you are drinking?: 3 or 4 3. How often do you have six or more drinks on one occasion?: Never Total Score: 1 Score Reviewed/Action Taken: Yes WILMER-7 AMB Questionnaire WILMER-7 Date WILMER - 7 assessed: 10/05/24 Feeling nervous, anxious, or on edge: 0 = Not at all Not being able to stop or control worryin = Not at all Worrying too much about different things: 0 = Not at all Trouble relaxin = Not at all Being so restless that it is hard to sit still: 0 = Not at all Becoming easily annoyed or irritable: 0 = Not at all Feeling afraid as if something awful might happen: 0 = Not at all Total WILMER-7 score (0-4 normal; 5-9 mild; 10-14 moderate; 15-21 severe): 0 Source: Developed by Drs. Giorgi Glover, Deepthi Tyler, Felipe Gauthier and colleagues, with an educational charley from [employer]. WILMER-7 Assessment Billing WILMER-7 Assessment Tool: WILMER-7 Assessment 93377 Physical exam (Primary Care) Vital Signs: Last Vital Signs Pulse 98 10/05/24 15:38 BP 114/68 10/05/24 15:38 Pulse Ox 98 10/05/24 15:38 Tobacco/Smoking Status: Tobacco use Status Tobacco use date assessed 10/05/24 10/05/24 15:39 Patient Tobacco Use Status Never used Tobacco 10/05/24 15:39 e-Cigarette/Vaping Use Never Used 10/05/24 15:39 PHQ-9: PHQ-9 Score PHQ-9: Total score 0 10/05/24 16:53 Depression Screening Interpretation: Negative Thrive Assessment: Date of Thrive Assessment Date Thrive assessed 10/05/24 10/05/24 15:39 Currently or been in a relationship where the following occur: No concerns reported Immunizations pneumoc 20-pat conj-dip cr(PF) 0.5 mL IM syringe Performing Provider: STACEY Morrissey [place] [facility] Administered by: Serjio Garces CMA on 01/21/25 16:53 Dose Route Admin Location Dispensed Lot Number Expiration Date NDC Mycologist 0.5 mL IM Left Deltoid 0.5 mL [id number] 01/02/26 0399-8793-62 AIT/Shoefitr VIS Given Date VIS Provided VIS Publication Date 10/05/24 Single Vaccine 21 Eligibility Eligibility Date Funding Source Not [facility] Eligible 10/05/24 Private Coding Level of Care Code Est Pt Level 4 (64646) Est Pt Prev Care >65y(38348) Diagnoses Displaced fracture of right femoral neck S72.001A Colon adenocarcinoma C18.9 History of chemotherapy Z92.21 Type 2 diabetes mellitus with other diabetic kidney complication E11.29 HFrEF (heart failure with reduced ejection fraction) I50.20 Weakness R53.1 Abscess, liver K75.0 Biliary stricture K83.1 Screening PSA (prostate specific antigen) Z12.5 Additional Codes WILMER-7 Assessment Billing - WILMER-7 Assessment Tool: WILMER-7 Assessment 17280 ([id number]) PHQ-9 - 48539 - PHQ-9 Billing: Yes ([id number]) Assessment & Plan Assessment & Plan (1) Displaced fracture of right femoral neck: Code(s): S72.001A - Fracture of unspecified part of neck of right femur, initial encounter for closed fracture Category: Medical (2) Colon adenocarcinoma: Code(s): C18.9 - Malignant neoplasm of colon, unspecified Category: Medical (3) History of chemotherapy: Code(s): Z92.21 - Personal history of antineoplastic chemotherapy Category: Medical (4) Type 2 diabetes mellitus with other diabetic kidney complication: Code(s): E11.29 - Type 2 diabetes mellitus with other diabetic kidney complication Category: Medical (5) HFrEF (heart failure with reduced ejection fraction): Code(s): I50.20 - Unspecified systolic (congestive) heart failure Category: Medical (6) Weakness: Code(s): R53.1 - Weakness Category: Medical (7) Abscess, liver: Code(s): K75.0 - Abscess of liver Category: Medical (8) Biliary stricture: Code(s): K83.1 - Obstruction of bile duct Category: Medical (9) Screening PSA (prostate specific antigen): Code(s): Z12.5 - Encounter for screening for malignant neoplasm of prostate Category: Medical Plan . Orders: Orders Comprehensive [place]. Panel Fast Today C18.9 - Malignant neoplasm of colon, unspecified, E11.29 - Type 2 diabetes mellitus with other diabetic kidney complication, I50.20 - Unspecified systolic (congestive) heart failure, K75.0 - Abscess of liver, K83.1 - Obstruction of bile duct, R53.1 - Weakness, S72.001A - Fracture of unspecified part of neck of right femur, initial encounter for closed fracture, Z92.21 - Personal history of antineoplastic chemotherapy UA CC w/rflx Micro + Cult Today C18.9 - Malignant neoplasm of colon, unspecified, E11.29 - Type 2 diabetes mellitus with other diabetic kidney complication, I50.20 - Unspecified systolic (congestive) heart failure, K75.0 - Abscess of liver, K83.1 - Obstruction of bile duct, R53.1 - Weakness, S72.001A - Fracture of unspecified part of neck of right femur, initial encounter for closed fracture, Z92.21 - Personal history of antineoplastic chemotherapy Lipid Panel Today C18.9 - Malignant neoplasm of colon, unspecified, E11.29 - Type 2 diabetes mellitus with other diabetic kidney complication, I50.20 - Unspecified systolic (congestive) heart failure, K75.0 - Abscess of liver, K83.1 - Obstruction of bile duct, R53.1 - Weakness, S72.001A - Fracture of unspecified part of neck of right femur, initial encounter for closed fracture, Z92.21 - Personal history of antineoplastic chemotherapy B Type Natriuretic Peptide Today I50.20 - Unspecified systolic (congestive) heart failure CA echo transthoracic complete Today I50.20 - Unspecified systolic (congestive) heart failure Prostate Specific Antigen Scr Today Z12.5 - Encounter for screening for malignant neoplasm of prostate Pneumococcal 20 Immunization Today Z23 - Encounter for immunization Complete Blood Count Auto Diff Today C18.9 - Malignant neoplasm of colon, unspecified, E11.29 - Type 2 diabetes mellitus with other diabetic kidney complication, I50.20 - Unspecified systolic (congestive) heart failure, K75.0 - Abscess of liver, K83.1 - Obstruction of bile duct, R53.1 - Weakness, S72.001A - Fracture of unspecified part of neck of right femur, initial encounter for closed fracture, Z92.21 - Personal history of antineoplastic chemotherapy TSH reflex Free T4 Today C18.9 - Malignant neoplasm of colon, unspecified, E11 .29 - Type 2 diabetes mellitus with other diabetic kidney complication, I50.20 - Unspecified systolic (congestive) heart failure, K75.0 - Abscess of liver, K83.1 - Obstruction of bile duct, R53.1 - Weakness, S72.001A - Fracture of unspecified part of neck of right femur, initial encounter for closed fracture, Z92.21 - Personal history of antineoplastic chemotherapy Referrals Cardiology Referral I50.20 - Unspecified systolic (congestive) heart failure
[2024-10-05 15:38] VITALS: BP 114/68; PULSE 98; O2SAT 98
--- OUTSIDE RECORDS SUMMARY | 2024-10-05 17:26 | XMS_ITS | Clinical Summary ---
Author Organization 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 Do not crush, chew, or split. Active Active Problems Problem Noted Date Diagnosed Date Bacteremia 08/18/2024 Encounters Date Type Department Care Team Description 08/18/2024 11:12 AM EST - 08/19/2024 2:27 PM EST Hospital Encounter [facility] Emergency [address] [place] [address] Augusto Moctezuma MD Bell, Alistair A, MD Bacteremia (Primary Dx) Discharge Disposition: Short Term Hospital from Last 3 Months Social History Tobacco Use Types Packs/Day Years Used Date Smoking Tobacco: Never Alcohol Use Standard Drinks/Week Comments Never 0 (1 standard drink = 0.6 oz pur e alcohol) Sex and Gender Information Value Date Recorded Sex Assigned at Male 08/18/2024 12:46 PM EST Gender Identity Male 08/18/2024 12:46 PM EST Sexual Orientation Not on file Job Start Date Occupation Industry Not on file Not on file Not on file Obstetrics History Last Filed Vital Signs Vital Sign Reading Time Taken Comments Blood Pressure 115/72 08/19/2024 10:04 AM EST Pulse 78 08/19/2024 8:36 AM EST Temperature 36.6 ??C (97.9 ??F) 08/19/2024 3:36 AM ES T Respiratory Rate 17 08/19/2024 8:36 AM EST Oxygen Saturation 93% 08/19/2024 8:36 AM EST Inhaled Oxygen Concentration - - Weight 72.6 kg (160 lb) 08/18/2024 11:45 AM EST Height 177.8 cm (5' 10 ) 08/18/2024 11:45 AM EST Body Mass Index 22.96 08/18/2024 11:45 AM EST Plan of Treatment Health Maintenance Due Date Last Done Comments Diabetes: Annual Foot Exam 1963 Diabetes: Annual Retina Eye Exam 1965 Hepatitis A Vaccines (1 of 2 - Risk 2-dose series) 1972 Zoster Vaccines (1 of 2) 1972 RSV Immunization Patients 60+ Years Old (1 - Risk 60-74 years 1-dose series) 2013 Pneumococcal Vaccine: 65+ Years (3 of 3 - PCV) 05/12/2019 05/12/2018, 06/18/2017, 08/15/2015 Cholesterol Screening (Lipid Panel) 08/17/2022 Colorectal Cancer Screening: Colonoscopy 08/17/2022 Depression Screening 08/17/2022 Falls Risk Assessment 08/17/2022 Hepatitis C Screening 08/17/2022 Medicare Annual Wellness Visit 08/17/2022 Social Influencers of Health Screening 08/17/2022 Diabetes: Annual Urine Albumin-Creatinine Ratio (uACR) 08/18/2024 Diabetes: Blood Sugar Control Test (HGBA1C) 08/18/2024 Diabetes: Annual GFR (Glomerular Filtration Rate) 08/19/2025 08/19/2024, 08/18/2024, 07/15/2024, Additional history exists Hypertension/CHF/CAD Annual BMP Blood Test 08/19/2025 08/19/2024, 08/18/2024, 07/15/2024, Additional history exists DTaP,Tdap,and Td Vaccines (3 - Td or Tdap) 08/22/2030 08/22/2020, 03/14/2016 Hepatitis B Vaccines Completed 10/30/2021, 05/11/2021, 04/12/2021 Influenza Vaccine Completed 07/29/2024, , 07/01/2022, Additional history exists COVID-19 Vaccine Completed 08/02/2024, 11/2021, 07/17/2021, Additional history exists HIB Vaccines Aged Out No longer eligi ble based on patient's age to complete this topic HPV Vaccines Aged Out No longer eligi ble based on patient's age to complete this topic IPV Vaccines Aged Out No longer eligi ble based on patient's age to complete this topic MMR Vaccines Aged Out No longer eligi ble based on patient's age to complete this topic Meningococcal ACWY Vaccine Aged Out N o longer eligible based on patient's age to complete this topic RSV Immunization Patients Under 20 months Aged Out No longer eligible based on patient's age to complete this topic Varicella Vaccines Aged Out No longer eligible based on patient's age to complete this topic Procedures Procedure Name Priority Date/Time Associated Diagnosis Comments POCT GLUCOSE BLOOD Routine 08/19/2024 12 :21 PM EST US ABDOMEN LIMITED STAT 08/19/2024 11 :45 AM EST POCT GLUCOSE BLOOD Routine 08/19/2024 9: 54 AM EST BILIRUBIN, TOTAL AND DIRECT Add-On 08/19/2024 6:01 AM EST HEPATIC FUNCTION PANEL Add-On 6:01 AM EST CBC WITH AUTO DIFFERENTIAL Routine 08/19/2024 6:01 AM EST SEDIMENTATION RATE Routine 08/19/2024 6: 01 AM EST CBC AND DIFFERENTIAL Routine 08/19/2024 6:01 AM EST BASIC METABOLIC PANEL Routine 08/19/2024 6:01 AM EST POCT GLUCOSE BLOOD Routine 08/19/2024 3: [address] CHEST/ABDOMEN/PELVIS W CONTRAST STAT 08/18/2024 7:14 PM EST POCT GLUCOSE BLOOD Routine 08/18/2024 5: 42 PM EST XR CHEST 2 VIEWS STAT 08/18/2024 2:22 PM EST RESPIRATORY VIRUS PANEL MOLECULAR STUDY STAT 08/18/2024 12:25 PM EST CULTURE BLOOD STAT 08/18/2024 12:24 PM EST CBC WITH AUTO DIFFERENTIAL STAT 08/18/2024 12:17 PM EST SEDIMENTATION RATE STAT 08/18/2024 12 :17 PM EST CREATINE KINASE STAT 08/18/2024 12:17 PM EST COMPREHENSIVE METABOLIC PANEL STAT 08/18/2024 12:17 PM EST CBC AND DIFFERENTIAL STAT 08/18/2024 12:17 PM EST LACTATE, WITH REFLEX STAT 08/18/2024 12:17 PM EST BLOOD CULTURE PATHOGENS BY PCR Routine 08/18/2024 12:17 PM EST CULTURE BLOOD STAT 08/18/2024 12:17 PM EST from Last 3 Months Results * (ABNORMAL) POCT Glucose, blood (08/19/2024 12:21 PM EST) Only the most recent of4 resultswithin the time period is included. Glucose POCT 113(H) 70 - 100 mg/dL 08/19/2024 12:22 PM EST [facility] Blood Capillary blood specimen / Unknown 08/19/2024 12:21 PM EST 08/19/2024 12:23 PM EST Augusto Moctezuma MD LAB POINT OF CARE TE ST DOCKED DEVICE UNSOLICITED RESULTS [facility] [address] [place] [address], [place] [phone] * US Abdomen Limited (08/19/2024 11:45 AM EST) Anatomical Region Laterality Modality Body Ultrasound 08/19/2024 12:0 7 PM EST Impressions 08/19/2024 12:11 PM EST Impression: Biliary dilatation and findings suggestive of biliary gas as described above. -------- FINAL REPORT -------- Dictated By: Perfecto Romero Dictated Date: 08/19/2024 12:07 ET Assigned Physician: Perfecto Romero Reviewed and Electronically Signed By: Perfecto Romero Signed Date: 08/19/2024 12:11 ET Workstation ID: [id number] Transcribed By: Self Edit Transcribed Date: 08/19/2024 12:07 ET Narrative 08/19/2024 12:11 PM EST Ultrasound Right Upper quadrant. TECHNIQUE: Dedicated ultrasound images were performed of the right upper quadrant. ??Color Doppler imaging was performed. History: Pain Comparison: CT examination of the abdomen and pelvis yesterday. Findings: Gallbladder: Mildly distended. ??Stone noted on CT is not visualized. Biliary: Common bile duct measures 11 mm. ??Biliary stent is not visualized on this exam. Liver: Liver measures 16 cm and appears normal in echogenicity. ??Some intrahepatic biliary dilatation is noted in the right and left lobes. ??There is increased echogenicity that is suggestive of gas within the biliary system. ??Normal directional flow in the portal vein. Pancreas: Not well-visualized. Right kidney: ??measures 11cm and appears normal. Procedure Note Perfecto Romero MD - 08/19/2024 Ultrasound Right Upper quadrant. TECHNIQUE: Dedicated ultrasound images were performed of the right upperquadrant. Color Doppler imaging was performed. History: Pain Comparison: CT examination of the abdomen and pelvis yesterday. Findings: Gallbladder: Mildly distended. Stone noted on CT is not visualized. Biliary: Common bile duct measures 11 mm. Biliary stent is not visualizedon this exam. Liver: Liver measures 16 cm and appears normal in echogenicity. Someintrahepatic biliary dilatation is noted in the right and left lobes.There is increased echogenicity that is suggestive of gas within thebiliary system. Normal directional flow in the portal vein. Pancreas: Not well-visualized. Right kidney: measures 11cm and appears normal. IMPRESSION: Impression: Biliary dilatation and findings suggestive of biliary gas asdescribed above. -------- FINAL REPORT -------- Dictated By: Perfecto Romero Dictated Date: 08/19/2024 12:07 ET Assigned Physician: Perfecto Romero Reviewed and Electronically Signed By: Perfecto Romero Signed Date: 08/19/2024 12:11 ET Workstation ID: [id number] Transcribed By: Self Edit Transcribed Date: 08/19/2024 12:07 ET Cindy Carlson NP IMG US PROCEDURES * (ABNORMAL) CBC auto differential (08/19/2024 6:01 AM EST) Only the most recent of2 resultswithin the time period is included. WBC 6.3 4.8 - 10.8 K/mcL LAB HEMETOLOGY METHOD 08/19/2024 7:50 AM [facility] RBC 4.30(L) 4.50 - 5.50 M/mcL LAB HEMETOLOGY METHOD 08/19/2024 7:50 AM [facility] Hemoglobin 12.7(L) 13.5 - 17.5 g/dL LAB HEMETOLOGY METHOD 08/19/2024 7:50 AM [facility] Hematocrit 40.6(L) 42.0 - 54.0 % LAB HEMETOLOGY METHOD 08/19/2024 7:50 AM [facility] MCV 94.6 79.0 - 98.0 FL LAB HEMETOLOGY METHOD 08/19/2024 7:50 AM [facility] MCH 29.6 27.0 - 32.0 pcg LAB HEMETOLOGY METHOD 08/19/2024 7:50 AM [facility] MCHC 31.3(L) 32.0 - 37.0 g/dL LAB HEMETOLOGY METHOD 08/19/2024 7:50 AM [facility] RDW 16.3(H) 11.0 - 15.0 % LAB HEMETOLOGY METHOD 08/19/2024 7:50 AM [facility] Platelets 08/19/2024 7:50 AM [facility] Comment:Not measured. Unable to quantitate due to platelet clumping MPV 12.6(H) 7.0 - 11.0 FL LAB HEMETOLOGY METHOD 08/19/2024 7:50 AM [facility] NRBC 0.0 <1.0 % LAB HEMETOLOGY METHOD 08/19/2024 7:50 AM [facility] NRBC Absolute 0.00 <0.10 K/mcL LAB HEMETOLOGY METHOD 08/19/2024 7:50 AM [facility] Neutrophils Relative 79.2 % LAB HEMETOLOGY METHOD 08/19/2024 7:50 AM [facility] Lymphocytes Relative 10.1 % LAB HEMETOLOGY METHOD 08/19/2024 7:50 AM [facility] Monocytes Relative 8.3 % LAB HEMETOLOGY METHOD 08/19/2024 7:50 AM [facility] Eosinophils Relative 1.6 % LAB HEMETOLOGY METHOD 08/19/2024 7:50 AM [facility] Basophils Relative 0.5 % LAB HEMETOLOGY METHOD 08/19/2024 7:50 AM [facility] Immature Granulocytes Relative 0.3 % LAB HEMETOLOGY METHOD 08/19/2024 7:50 AM [facility] Neutrophils Absolute 4.95 1.50 - 7.00 K/mcL LAB HEMETOLOGY METHOD 08/19/2024 7:50 AM EST [facility] Lymphocytes Absolute 0.63(L) 1.00 - 5.00 K/mcL LAB HEMETOLOGY METHOD 08/19/2024 7:50 AM [facility] Monocytes Absolute 0.52 0.20 - 1.00 K/mcL LAB HEMETOLOGY METHOD 08/19/2024 7:50 AM EST [facility] Eosinophils Absolute 0.10 0.00 - 0.50 K/mcL LAB HEMETOLOGY METHOD 08/19/2024 7:50 AM EST [facility] Basophils Absolute 0.03 0.00 - 0.20 K/mcL LAB HEMETOLOGY METHOD 08/19/2024 7:50 AM [facility] Immature Granulocytes Absolute 0.02 0.00 - 0.03 K/mcL LAB HEMETOLOGY METHOD 08/19/2024 7:50 AM [facility] Blood Venous blood specimen / Unknown 08/19/2024 6:01 AM EST 08/19/2024 6:36 AM EST Augusto Moctezuma MD LAB BLOOD ORDERABLES [facility] [address] [place] [address], * (ABNORMAL) Sedimentation rate (08/19/2024 6:01 AM EST) Only the most recent of2 resultswithin the time period is included. Sed Rate 99(H) 0 - 20 mm/hr LAB HEMETOLOGY METHOD 08/19/2024 7:01 AM EST [facility] Blood Venous blood specimen / Unknown 08/19/2024 6:01 AM EST 08/19/2024 6:36 AM EST Magen DESAI LAB BLOOD ORDERABLES [facility] [address] [place] [address], * (ABNORMAL) Bilirubin, total and direct (08/19/2024 6:01 AM EST) Total Bilirubin 1.2 0.0 - 1.4 mg/dL LAB CHEMISTRY METHOD 08/19/2024 8:58 AM EST [facility] Bilirubin, Direct 0.7(H) 0.0 - 0.3 mg/dL LAB CHEMISTRY METHOD 08/19/2024 8:58 AM [facility] Bilirubin, Indirect 0.5 0.0 - 1.1 mg/dL LAB CHEMISTRY METHOD 08/19/2024 8:58 AM [facility] Blood Venous blood specimen / Unknown 08/19/2024 6:01 AM EST 08/19/2024 6:36 AM EST Cindy Carlson NP LAB BLOOD ORDERABLES [facility] [address] [place] [address], * (ABNORMAL) Hepatic function panel (08/19/2024 6:01 AM EST) Total Protein 6.2 6.0 - 8.0 g/dL LAB CHEMISTRY METHOD 08/19/2024 8:58 AM [facility] Albumin 2.4(L) 3.2 - 5.0 g/dL LAB CHEMISTRY METHOD 08/19/2024 8:58 AM [facility] Total Bilirubin 1.2 0.0 - 1.4 mg/dL LAB CHEMISTRY METHOD 08/19/2024 8:58 AM [facility] Bilirubin, Direct 0.7(H) 0.0 - 0.3 mg/dL LAB CHEMISTRY METHOD 08/19/2024 8:58 AM EST [facility] Bilirubin, Indirect 0.5 0.0 - 1.1 mg/dL LAB CHEMISTRY METHOD 08/19/2024 8:58 AM [facility] ALT (SGPT) 33 10 - 60 unit/L LAB CHEMISTRY METHOD 08/19/2024 8:58 AM [facility] AST (SGOT) 41 10 - 42 unit/L LAB CHEMISTRY METHOD 08/19/2024 8:58 AM [facility] Alkaline Phosphatase 207(H) 42 - 121 unit/L LAB CHEMISTRY METHOD 08/19/2024 8:58 AM [facility] Blood Venous blood specimen / Unknown 08/19/2024 6:01 AM EST 08/19/2024 6:36 AM EST Cindy Carlson NP LAB BLOOD ORDERABLES [facility] [address] [place] [address], * (ABNORMAL) Basic metabolic panel (08/19/2024 6:01 AM EST) Sodium 136 133 - 145 mmol/L LAB CHEMISTRY METHOD 08/19/2024 7:08 AM [facility] Potassium 4.1 3.5 - 5.5 mmol/L LAB CHEMISTRY METHOD 08/19/2024 7:08 AM [facility] Chloride 104 96 - 110 mmol/L LAB CHEMISTRY METHOD 08/19/2024 7:08 AM [facility] CO2 24 21 - 32 mmol/L LAB CHEMISTRY METHOD 08/19/2024 7:08 AM [facility] Anion Gap 8 3 - 11 LAB CHEMISTRY METHOD 08/19/2024 7:08 AM [facility] Glucose 107(H) 70 - 100 mg/dL LAB CHEMISTRY METHOD 08/19/2024 7:08 AM [facility] BUN 21 5 - 25 mg/dL LAB CHEMISTRY METHOD 08/19/2024 7:08 AM [facility] Creatinine 0.62(L) 0.70 - 1.30 mg/dL LAB CHEMISTRY METHOD 08/19/2024 7:08 AM [facility] eGFR 102 >=60 mL/min/1. 73m2 LAB CHEMISTRY METHOD 08/19/2024 7:08 AM [facility] Comment:Calculation based on the??Chronic Kidney Disease Epidemiology Collaboration (CKD-EPI) equation refit??without adjustment for race. BUN/Creatinine Ratio 33.9 LAB CHEMISTRY METHOD 08/19/2024 7:08 AM [facility] Calcium 8.7 8.5 - 10.5 mg/dL LAB CHEMISTRY METHOD 08/19/2024 7:08 AM [facility] Blood Venous blood specimen / Unknown 08/19/2024 6:01 AM EST 08/19/2024 6:36 AM EST Augusto Moctezuma MD LAB BLOOD ORDERABLES [facility] [address] [place] [address], * CT Chest/Abdomen/Pelvis w Contrast (08/18/2024 7:14 PM EST) Anatomical Region Laterality Modality Body Computed Tomogra phy 08/18/2024 8:55 PM EST Impressions 08/18/2024 8:55 PM EST There is a stent in the CBD. There is dilation of the intrahepatic and extrahepatic biliary ducts. There is ductal wall enhancement concerning for infection. There are hypodense areas in the left lobe of the liver with peripheral enhancement. Liver abscess can not be excluded. 4 mm pulmonary nodule of the right upper lobe. Cholelithiasis. Additional findings as above. This document has been electronically signed by: Gracie Head MD on 08/18/2024 20:55:03 Narrative 08/18/2024 8:[address] chest, abdomen and pelvis with contrast Comparison: None Findings: The tip of Port-A-Cath is in the right atrium. The heart is normal size. Atherosclerosis calcification of the coronary artery. Multiple small nodules of the thyroid gland. No enlarged mediastinal lymph node. Mild opacity of the bilateral lung bases. 4 mm pulmonary nodule of the right upper lobe series 3, image 89. There are calcified granulomas. There is a gallstones in the gallbladder. A stent is noted in the CBD. There is dilation of the intrahepatic and extrahepatic biliary duct with contrast enhancement of the ductal wall. Hypodense areas in the left lobe of the liver series 4, image 93 measuring 1.6 x 2.7 cm in size and 86 with wall enhancement. The spleen is enlarged. There is a hypodense lesion on the anterior aspect of the spleen attenuation 22 Hounsfield unit. The pancreas is atrophic. No pancreatic mass is visualized. The bilateral adrenals are unremarkable. Small hypodensities of the kidneys are statistically representing renal cysts. No stone or hydronephrosis. No bowel obstruction, pneumoperitoneum, or pneumatosis. Appendix is not visualized. Evaluation of the pelvis is limited by artifact from the right hip prosthesis. The prostate gland is enlarged. Bladder is decompressed by Sultana catheter. Compression fracture of the L1 vertebral body. Small sclerotic lesion of the L5 vertebral body. Procedure Note Gracie Head MD - 08/18/2024 CT chest, abdomen and pelvis with contrast Comparison: None Findings: The tip of Port-A-Cath is in the right atrium. The heart is normal size. Atherosclerosis calcification of the coronary artery. Multiple small nodules of the thyroid gland. No enlarged mediastinallymph node. Mild opacity of the bilateral lung bases. 4 mm pulmonary nodule of the right upper lobe series 3, image 89. There are calcified granulomas. There is a gallstones in the gallbladder. A stent is noted in the CBD. There is dilation of the intrahepatic and extrahepatic biliary duct with contrast enhancement of the ductal wall. Hypodense areas in the leftlobe of the liver series 4, image 93 measuring 1.6 x 2.7 cm in size and 86with wall enhancement. The spleen is enlarged. There is a hypodense lesion on the anterior aspect of the spleen attenuation 22 Hounsfield unit. The pancreas is atrophic. No pancreatic mass is visualized. The bilateral adrenals are unremarkable. Small hypodensities of the kidneys are statistically representing renal cysts. No stone or hydronephrosis. No bowel obstruction, pneumoperitoneum, or pneumatosis. Appendix is not visualized. Evaluation of the pelvis is limited by artifact from the right hip prosthesis. The prostate gland is enlarged. Bladder is decompressed by Sultana catheter. Compression fracture of the L1 vertebral body. Small sclerotic lesion of the L5 vertebral body. IMPRESSION: There is a stent in the CBD. There is dilation of the intrahepatic and extrahepatic biliary ducts. There is ductal wall enhancement concerning for infection. There are hypodense areas in the left lobe of the liver with peripheral enhancement. Liver abscess can not be excluded. 4 mm pulmonary nodule of the right upper lobe. Cholelithiasis. Additional findings as above. This document has been electronically signed by: Gracie Head MD on 08/18/2024 20:55:[address] PROCEDURES * XR Chest 2 Views (08/18/2024 2:22 PM EST) Anatomical Region Laterality Modality Body Radiographic Valeria ging 08/18/2024 2:35 PM EST Impressions 08/18/2024 2:37 PM EST Hypoventilatory exam. ??No acute cardiopulmonary findings. -------- FINAL REPORT -------- Dictated By: Cuauhtemoc Wilson Dictated Date: 08/18/2024 14:35 ET Assigned Physician: uCauhtemoc Wilson Reviewed and Electronically Signed By: Cuauhtemoc Wilson Signed Date: 08/18/2024 14:37 ET Workstation ID: [id number] Transcribed By: Self Edit Transcribed Date: 08/18/2024 14:35 ET Narrative 08/18/2024 2:37 PM EST PA and lateral views of the chest dated 08/18/2024. HISTORY: fever. COMPARISON: 01/20/2022. FINDINGS: Hypoventilatory inspiratory volumes with linear markings at the bases suggestive of atelectasis. ??Right-sided single-lumen port with the catheter tip in the right atrium. ??No pleural effusion, pulmonary edema, or pneumothorax. ??Normal heart size. ??Mild degenerative changes of the spine and shoulders. Procedure Note Cuauhtemoc Wilson MD - 08/18/2024 PA and lateral views of the chest dated 08/18/2024. HISTORY: fever. COMPARISON: 01/20/2022. FINDINGS: Hypoventilatory inspiratory volumes with linear markings at the basessuggestive of atelectasis. Right-sided single-lumen port with thecatheter tip in the right atrium. No pleural effusion, pulmonary edema,or pneumothorax. Normal heart size. Mild degenerative changes of thespine and shoulders. IMPRESSION: Hypoventilatory exam. No acute cardiopulmonary findings. -------- FINAL REPORT -------- Dictated By: Cuauhtemoc Wilson Dictated Date: 08/18/2024 14:35 ET Assigned Physician: Cuauhtemoc Wilson Reviewed and Electronically Signed By: Cuauhtemoc Wilson Signed Date: 08/18/2024 14:37 ET Workstation ID: [id number] Transcribed By: Self Edit Transcribed Date: 08/18/2024 14:35 ET Augusto Moctezuma MD IMG XR PROCEDURES * Respiratory virus panel molecular study (08/18/2024 12:25 PM EST) Adenovirus Detection by PCR Not Detected Not Detected LAB MICROBIOLOGY METHOD 08/18/2024 1:36 PM [facility] Influenza A PCR Not Detected Not Detected LAB MICROBIOLOGY METHOD 08/18/2024 1:36 PM [facility] Influenza B PCR Not Detected Not Detected LAB MICROBIOLOGY METHOD 08/18/2024 1:36 PM [facility] Coronavirus 229E Not Detected Not Detected LAB MICROBIOLOGY METHOD 08/18/2024 1:36 PM [facility] Coronavirus HKU1 Not Detected Not Detected LAB MICROBIOLOGY METHOD 08/18/2024 1:36 PM [facility] Coronavirus OC43 Not Detected Not Detected LAB MICROBIOLOGY METHOD 08/18/2024 1:36 PM [facility] Coronavirus NL63 Not Detected Not Detected LAB MICROBIOLOGY METHOD 08/18/2024 1:36 PM [facility] Parainfluenza Virus 1 Not Detected Not Detected LAB MICROBIOLOGY METHOD 08/18/2024 1:36 PM [facility] Parainfluenza Virus 2 Not Detected Not Detected LAB MICROBIOLOGY METHOD 08/18/2024 1:36 PM [facility] Parainfluenza Virus 3 Not Detected Not Detected LAB MICROBIOLOGY METHOD 08/18/2024 1:36 PM [facility] Parainfluenza Virus 4 Not Detected Not Detected LAB MICROBIOLOGY METHOD 08/18/2024 1:36 PM [facility] RSV PCR Not Detected Not Detected LAB MICROBIOLOGY METHOD 08/18/2024 1:36 PM [facility] Human Metapneumovirus A and B Not Detected Not Detected LAB MICROBIOLOGY METHOD 08/18/2024 1:36 PM [facility] Rhinovirus/Entero virus Not Detected Not Detected LAB MICROBIOLOGY METHOD 08/18/2024 1:36 PM [facility] Bordetella pertussis Not Detected Not Detected LAB MICROBIOLOGY METHOD 08/18/2024 1:36 PM [facility] Bordetella parapertussis Not Detected Not Detected LAB MICROBIOLOGY METHOD 08/18/2024 1:36 PM [facility] Mycoplasma pneumo by PCR Not Detected Not Detected LAB MICROBIOLOGY METHOD 08/18/2024 1:36 PM [facility] Chlamydia pneumoniae Not Detected Not Detected LAB MICROBIOLOGY METHOD 08/18/2024 1:36 PM [facility] SARS COV-2 Not Detected Not Detected LAB MICROBIOLOGY METHOD 08/18/2024 1:36 PM [facility] Swab Both anterior nares / Unknown Non-blood Collection / Unknown 08/18/2024 12:25 PM EST 08/18/2024 12:34 PM [facility] - 08/18/2024 1:36 PM EST Testing was performed using the [employer] Respiratory Pathogen PCR Assay. All results must be correlated with the clinical findings. Results should not be used as the sole basis for diagnosis. False Negative results may occur from the presence of sequence variants in the region targeted by the assay or the presence of inhibitors. Results may be affected by concurrent antiviral/antimicrobial therapy or levels of organisms that are below the limit of detection. Ivanna DESAI LAB MICROBIOLOGY - ENERAL ORDERABLES Performing Organization Address City/[facility]/ZIP Co de Phone Number [facility] [address] [place] [address], [place] [phone] * Culture blood (08/18/2024 12:24 PM EST) Only the most recent of2 resultswithin the time period is included. Pathologist [facility] Culture, Blood No growth at 5 days 08/23/2024 1:01 PM EST [facility] Blood Venous blood specimen / Unknown Venipuncture / Unknown 08/18/2024 12:24 PM EST 08/18/2024 12:34 PM EST Augusto Moctezuma MD LAB MICROBIOLOGY - ENERAL ORDERABLES Performing Organization Address [place] [facility] Co de Phone Number [facility] [address] [place] [address], [place] [phone] * Lactate, with reflex (08/18/2024 12:17 PM EST) [facility] LACTIC ACID 1.2 0.4 - 2.0 mmol/L LAB CHEMISTRY METHOD 08/18/2024 1:03 PM EST [facility] Blood Venous blood specimen / Unknown Venipuncture / Unknown 08/18/2024 12:17 PM EST 08/18/2024 12:33 PM EST Augusto Moctezuma MD LAB BLOOD ORDERABLES Performing Organization Address City/[facility]/ZIP Co de Phone Number [facility] [address] [place] [address], [place] [phone] * (ABNORMAL) Blood culture pathogens molecular study (08/18/2024 12:17 PM EST) [facility] Escherichia coli Detected (A) Not Detected LAB MICROBIOLOGY METHOD 08/19/2024 6:52 AM [facility] Blood Venous blood specimen / Unknown Venipuncture / Unknown 08/18/2024 12:17 PM EST 08/18/2024 12:32 PM EST Augusto Moctezuma MD LAB MICROBIOLOGY - G ENERAL ORDERABLES Performing Organization Address City/[facility]/ZIP Co de Phone Number [facility] [address] [place] [address], [place] [phone] * Cardiac Enzymes - CPK (08/18/2024 12:17 PM EST) [facility] Total CK 29 22 - 269 unit/L LAB CHEMISTRY METHOD 08/18/2024 1:02 PM [facility] Blood Venous blood specimen / Unknown Venipuncture / Unknown 08/18/2024 12:17 PM EST 08/18/2024 12:33 PM EST Augusto Moctezuma MD LAB BLOOD ORDERABLES [facility] [address] [place] [address], [place] [phone] * (ABNORMAL) Comprehensive metabolic panel (08/18/2024 12:17 PM EST) [facility] Sodium 138 133 - 145 mmol/L LAB CHEMISTRY METHOD 08/18/2024 1:03 PM [facility] Potassium 3.7 3.5 - 5.5 mmol/L LAB CHEMISTRY METHOD 08/18/2024 1:03 PM [facility] Chloride 106 96 - 110 mmol/L LAB CHEMISTRY METHOD 08/18/2024 1:03 PM [facility] CO2 23 21 - 32 mmol/L LAB CHEMISTRY METHOD 08/18/2024 1:03 PM [facility] Anion Gap 9 3 - 11 LAB CHEMISTRY METHOD 08/18/2024 1:03 PM [facility] Glucose 103(H) 70 - 100 mg/dL LAB CHEMISTRY METHOD 08/18/2024 1:03 PM [facility] BUN 26(H) 5 - 25 mg/dL LAB CHEMISTRY METHOD 08/18/2024 1:03 PM [facility] Creatinine 0.68(L) 0.70 - 1.30 mg/dL LAB CHEMISTRY METHOD 08/18/2024 1:03 PM [facility] eGFR 99 >=60 mL/min/1. 73m2 LAB CHEMISTRY METHOD 08/18/2024 1:03 PM [facility] Comment:Calculation based on the??Chronic Kidney Disease Epidemiology Collaboration (CKD-EPI) equation refit??without adjustment for race. BUN/Creatinine Ratio 38.2 LAB CHEMISTRY METHOD 08/18/2024 1:03 PM [facility] Calcium 8.3(L) 8.5 - 10.5 mg/dL LAB CHEMISTRY METHOD 08/18/2024 1:03 PM [facility] AST (SGOT) 35 10 - 42 unit/L LAB CHEMISTRY METHOD 08/18/2024 1:03 PM [facility] ALT (SGPT) 30 10 - 60 unit/L LAB CHEMISTRY METHOD 08/18/2024 1:03 PM [facility] Alkaline Phosphatase 179(H) 42 - 121 unit/L LAB CHEMISTRY METHOD 08/18/2024 1:03 PM [facility] Total Protein 5.6(L) 6.0 - 8.0 g/dL LAB CHEMISTRY METHOD 08/18/2024 1:03 PM [facility] Albumin 2.3(L) 3.2 - 5.0 g/dL LAB CHEMISTRY METHOD 08/18/2024 1:03 PM EST [facility] Total Bilirubin 1.3 0.0 - 1.4 mg/dL LAB CHEMISTRY METHOD 08/18/2024 1:03 PM EST [facility] Blood Venous blood specimen / Unknown Venipuncture / Unknown 08/18/2024 12:17 PM EST 08/18/2024 12:33 PM EST Augusto Moctezuma MD LAB BLOOD ORDERABLES [facility] [address] [place] [address], from Last 3 Months Advance Directives Documents on File Type Date Recorded Patient Lead Cashier Expl anation Advance Directives and Saurabh g Will 08/19/2024 1:43 PM * No CPR/Do Not Intubate (Latest Code Status on File) Date Activated Date Inactivated Comments 08/18/2024 4:28 PM 08/19/2024 4:[address] atus was ascertained in the following way: Code status discussion: per living will or healthcare instructions To update the patient's code status, place a code status order. Do not modify or discontinue any currently active code status orders. * Full Code - Default Date Activated Date Inactivated Comments 08/18/2024 3:41 PM 08/18/2024 4:28 PM This is orde r is used when code status has not been discussed with the patient, or code status is otherwise unknown/unconfirmed To update the patient's code status, place a code status order. Do not modify or discontinue any currently active code status orders. Care Teams Tile Fitter Relationship Specialty Start Date End Date Mauri Dixon NP [address] [facility] [place] P[facility] - General 08/18/23
--- OUTSIDE RECORDS SUMMARY | 2024-10-05 17:26 | XMS_ITS ---
Author Organization [facility] Address [address] [facility] [place] [address] Care Team Providers Care Nursing Home Social Worker Name Role Phone Mauri Lange Primary Care Provider Unav ailable Nj Lee Unavailable [phone] REASON FOR VISIT CX 07/16/24 Encounters Encounter Location Date Provider Diagnosis [address] [address] 07/14/2024 Nj Lee Plan Of Treatment No Information Progress Notes * Navarro JADE GDOB:1954 (69 yo M)Acc No.[id number]:07/14/2024 Patient:?Navarro Jade :1955???Age:69 Y???Sex:Male Address: [place], [address] * true * Date:? Generated for Printi dylan/Emanuel/eTransmitting on:?10/05/2024 05:26 PM EST
--- OUTSIDE RECORDS SUMMARY | 2024-10-05 17:26 | XMS_ITS ---
Author Organization [facility] Address [address] [place] [address] Care Team Providers Care Controls Design Engineer Name Role Phone Mauri Lange Primary Care Provider Unav ailable Nj Lee Unavailable [phone] Encounters Encounter Location Date Provider Diagnosis [facility] [address] [place] [address] 07/16/2024 Nj Lee Plan Of Treatment No Information Progress Notes * Navarro JADE GDOB:1954 (69 yo M)Acc No.[id number]:07/16/2024 Progress Note Patient:?YASMANYNavarro FIERRO Lalitha Provider:?Nj Lee DPM :1955???Age:69 Y???Sex:Male Lacho e:07/16/2024 Address: [address], [id number] Pcp:ROHITH Villanueva Subjective: * Chief Complaints: * ??? * Medical History:? Objective: * Vitals:? Assessment: Plan: * Treatment: * Images: * The named appointment provid er may or may not be the originator of this progress note, and it is not deemed complete until electronically signed by the appointment provider. Sign off status: Pending * Provider:?Nj Lee DPM Date:?2023 Generated for Tyesha richardson/Emanuel/eTransmitting on:?10/05/2024 05:26 PM EST
--- OUTSIDE RECORDS SUMMARY | 2024-10-05 17:26 | XMS_ITS | Clinical Summary ---
Author Organization [facility] Address [address] [place] [address] Care Team Providers Care Centrifugal Spinner Name Role Phone Lopez Tyler MD Primary Care Provider [phone] Social History Tobacco Use Types Packs/Day Years Used Date Smoking Tobacco: Never Assessed Sex and Gender Information Value Date Recorded Sex Assigned at Not on file Gender Identity Not on file Sexual Orientation Not on file Plan of Treatment Health Maintenance Due Date Last Done Comments Hepatitis C Virus Screening 1955 DTaP/Tdap/Td Vaccines (1 - Tdap) 1972 Colonoscopy 1998 Pneumococcal Vaccines 50+ (1 of 1 - PCV) 2003 Zoster (Shingles) Vaccine (1 of 2) 2003 RSV Vaccine 60 years and old er and Patients (1 - Risk 60-74 years 1-dose series) 2013 Influenza Vaccine 04/15/2024 COVID-19 Vaccine ( - 2023-2 5 season) 2024 Hepatitis B Vaccines Aged Out No long er eligible based on patient's age to complete this topic Care Teams Centrifugal Spinner Relationship Specialty Start Date End Date Lopez Tyler MD [address] [place] [id number] PCP - General 08/12/14
--- OUTSIDE RECORDS SUMMARY | 2024-10-05 17:27 | XMS_ITS | Patient Health Record ---
Author Organization [facility] Address [address] [place] [address] Care Team Providers Care Beauty Culture Teacher Name Role Phone Mauri Lange Primary Care Provider Unav ailable Rosa Nj Unavailable [phone] Allergies No Known Allergies Results Component Value Reference Range Notes HEMOGLOBIN A1C (GLYCOHEMOGLO BIN) Reviewed date:01/06/2024 10:49:21 AM Interpretation: Performing Lab: Notes/Report: HEMOGLOBIN A1C % (HH) 7.3 Reason For Referral No Information Medications Medication SIG (Take, Route, Frequency, Duration) Notes Start Date End Date Status Lisinopril 5 MG TAKE 1 TABLET BY CHANDNI TH EVERY DAY Oral for 90 Active Jardiance Active Magnesium Active Insulin tersiba Active Cinnamon Active Extra Depth Orthopedic Shoes, (1) Pair With (3) Pair Custom Heat Molded Multidensity Innersoles Dx: NIDDM/PVD(E11.51), Hammertoe Foot Deformity(M20.41,M20.4 2), Preulcerative Skin Lesion(s)(L85.1) Wear Daily for 365 days 07/01/2023 Active Calcium Active Pioglitazone HCl 30 MG 1 tablet Orally O nce a day for 30 day(s) Active Fish Oil Active Trulicity Not-Taking Clopidogrel Bisulfate 75 MG 1 tablet Orally Once a day Active HumaLOG Not-Taking Atorvastatin Calcium 20 MG 1 tablet Orally Once a day for 30 day(s) Active metFORMIN HCl Active Ammonium Lactate 12 % USE 1 APPLICATION EXTERNALLY TWICE A DAY 30 DAYS for 30 Active Baby Aspirin Active Pramipexole Dihydrochloride 0.5 MG 1 tablet Orally Once a day for 30 day(s) Active Multi Vitamin Active Immunizations Vaccine Route Administration Date Status Comme nts COVID-19 Pfizer BioNTech Vaccine Unknown 01/15/2022 Administered 1st 11/12/2020 2nd 12/03/2020 3rd 07/17/2021 Influenza Unknown 07/18/2022 Administered Social History Tobacco Use: Social History Observation Description Date Details (start date - stop date) Never Smoker NA - NA Tobacco Use/Smoking Question Answer Notes Are you a: nonsmoker Additional Findings: Tobacco Non-User Current no n-smoker Alcohol Screen Question Answer Notes Did you have a drink containing alcohol in the p ast year? No Points 0 Interpretation Negative Tobacco use other than smoking: Question Answer Notes Are you an other tobacco user? No Problems Problem Type SNOMED Code ICD Code Onset Dates Problem Status W/U Status Risk Notes Problem Acquired hammer toe of right foot (62256784998158 05) Other hammer toe(s) (acquired), right foot (M20.41) Active confirmed Problem Type 2 diabetes mellitus with peripheral angiopathy (965505379) Type 2 diabetes mellitus with diabetic peripheral angiopathy without gangrene (E11.51) Active confirmed Problem Acquired hammer toe of left foot (34124618463126 03) Other hammer toe(s) (acquired), left foot (M20.42) Active confirmed Vital Signs Blood pressure diastolic 80 mm Hg 01/06/2024 Height 5 ft 10 in in 01/06/2024 Blood pressure systolic 120 mm Hg 01/06/2024 Weight 190 lbs 01/06/2024 BMI 27.26 kg/m2 01/06/2024 Procedures Procedure Date Ordered Date Performed Result Body Sit e 86411-LEOBYOM NAIL, 6 OR MORE 01/06/2024 N/A 11308-QNHW SKIN LESIONS, 2 TO 4 01/06/2024 N/A Encounters Encounter Location Date Provider Diagnosis [facility] [place] [address] [place] [address] 01/06/2024 Nj Lee Type 2 diabetes mellitus with diabetic peripheral angiopathy without gangrene E11.51 ; Tinea unguium B35.1 ; Pain in right toe(s) M79.674 ; Pain in left toe(s) M79.675 and Xerosis of skin L85.3 [facility] [place] [address] [place] [address] 12/22/2023 Nj Lee [facility] [address] 07/14/2024 Nj Lee Assessments Encounter Date Diagnosis (ICD Code) Assessment Notes Treatment Notes Treatment Clinical Notes Section Notes 01/06/2024 Type 2 diabetes mellitus with diabetic peripheral angiopathy without gangrene (ICD-10 - E11.51) 01/06/2024 Tinea unguium (ICD-10 - B35.1) 01/06/2024 Pain in right toe(s) (ICD-10 - M79.674) 01/06/2024 Pain in left toe(s) (ICD-10 - M79.675) 01/06/2024 Xerosis of skin (ICD-10 - L85.3) Plan Of Treatment Pending Test Test Name Order Date 59607-XDZSOHB NAIL, 6 OR MORE 10/31/2020 09033-IGRLPLG NAIL, 6 OR MORE 01/30/2021 03780-SDSQAXF NAIL, 6 OR MORE 05/22/2021 06226-CHEMWZI NAIL, 6 OR MORE 09/25/2021 96109-OZLMFJG NAIL, 6 OR MORE 04/05/2022 56776-UVEQWAP NAIL, 6 OR MORE 08/16/2022 40091-ZCZYTWR NAIL, 6 OR MORE 02/28/2023 91200-XQRITAA NAIL, 6 OR MORE 07/01/2023 09800-XQTOSWX NAIL, 6 OR MORE 01/06/2024 38757-FJGH SKIN LESIONS, 2 TO 4 01/06/20 24 82776-QCYL SKIN LESIONS, 2 TO 4 07/01/20 98465-NOBV SKIN LESIONS, 2 TO 4 02/29/20 76087-MIPL SKIN LESIONS, 2 TO 4 08/16/20 67364-CBIU SKIN LESIONS, 2 TO 4 04/05/20 50411-HLCV SKIN LESIONS, 2 TO 4 09/25/19 82146-PMPT SKIN LESIONS, 2 TO 4 05/22/20 21 54390-JZCH SKIN LESIONS, 2 TO 4 01/31/20 01012-LMSS SKIN LESIONS, 2 TO 4 02/16/20 21 Insurance Providers Payer Name Payer Address Payer Phone Subscriber Number Group Number Insured Name Patient Relationship to Insured Coverage Start Date Coverage End Date [employer] Medicare Adv-[id number] [address] [address] [place] [address] [id number] Navarro López Self - patient is the insured Medical (General) History Medical History History ICD Code Cancer - Colon type II diabetes Measles Mumps Chicken pox CAD Post Covid Vaccine CVA Surgical History Surgery Date(Month/Year) colon cancer 04/2019 left cataract surgery 01/01/2021 left corneal transplant 01/01/2021 Hospitalization History Reason Date(Month/Year) [facility]St[place] 1 week Rehab 2 weeks 01/15/2022
--- OUTSIDE RECORDS SUMMARY | 2024-10-05 17:27 | XMS_ITS | Clinical Summary ---
Author Organization [facility] Address [address] [place] [address] Care Team Providers Care Video Production Assistant Name Role Phone Lopez Tyler Primary Care Provider Unavaila ble Medications Insulin Lispro, 1 Unit Dial, (HumaLOG KwikPen) 100 UNIT/ML Solution Pen-injector INJECT 24 UNITS UNDER THE SKIN TWICE DAILY 15 0 4 Active Aspirin (TGT Aspirin Low Dose) 81 MG tablet TAKE 2 TABLET DAILY. 0 4 Active Magnesium 200 MG Tab TAKE 1 TABLET DAILY DIRECTED. 0 4 Active Calcium 250 MG Cap 1 tab qd 0 4 Active B-12 (CYANOCOBALAMI N) 100 MCG Tab TAKE 1 TABLET DAILY DIRECTED. 0 4 Active metFORMIN HCl (GLUCOPHAGE) 1000 MG tablet TAKE 1 TABLET TWICE DAILY. 0 4 Active Glucose Blood (Accu-Chek Evelyne Plus) test strip 100 0 5 Active Gabapentin (NEURONTIN) 600 MG tablet TAKE 1 TABLET 2-3 TIMES PER DAY 30 0 5 Active Fish Oil (FISH OIL) 1000 MG Cap TAKE 1 CAPSULE DAILY. 30 capsule 0 5 Active Atorvastatin Calcium (LIPITOR) 40 MG tablet TAKE 1 TABLET BY MOUTH EVERY DAY follow up required for continued refills 30 0 5 Active Insulin Glargine (Lantus SoloStar) 100 UNIT/ML Solution Pen-injector 15 0 7 Active Insulin Pen Needle (B-D ULTRAFINE III SHORT PEN) 31G X 8 MM Misc 100 0 7 Active Insulin Glargine (Lantus) 100 UNIT/ML injection INJECT SUBCUTANEOUSLY DIRECTED. 0 7 Active Active Problems Problem Noted Date Diagnosed Date Need for hepatitis C screening test 06/18/2017 Colon cancer screening 08/15/2015 Hyperlipidemia 08/15/2015 Elevated PSA 08/18/2014 Type 2 diabetes mellitus 05/25/2014 Diabetic neuropathy 05/25/2014 Overview (10/19/2023): Transitioned From: Neurological disorder Immunizations Name Administration Dates Next Due Influenza (SEASONAL) - 06/18/2017,07/14/2015 Influenza,seasonal,trivalent ,preservative (FLUZONE MDV) 07/21/2016,07/11/2014 PPV23 (Pneumovax) 06/18/2017,08/15/2015 Tdap 03/14/2016 Social History Tobacco Use Types Packs/Day Years Used Date Smoking Tobacco: Never Assessed Comments:Smoking Status:No c urrent tobacco use Sex and Gender Information Value Date Recorded Sex Assigned at Not on file Legal Sex Male 2:01 AM EDT Gender Identity Not on file Sexual Orientation Not on file Last Filed Vital Signs Vital Sign Reading Time Taken Comments Blood Pressure 132/73 06/18/2017 2:05 PM EDT Pulse 84 06/18/2017 1:35 PM EDT Temperature 36.8 ??C (98.2 ??F) 06/18/2017 1:35 PM ED T Oral Respiratory Rate 17 03/14/2016 1:16 PM EDT Oxygen Saturation - - Inhaled Oxygen Concentration - - Weight 97.2 kg (214 lb 6 oz) 06/18/2017 1:35 PM EDT Height 174 cm (5' 8.5 ) 06/18/2017 1:35 PM EDT Body Mass Index 32.12 06/18/2017 1:35 PM EDT Plan of Treatment Health Maintenance Due Date Last Done Comments Eye/Retina Exam 1971 Microalbumin 1971 Zoster (Shingrix) (1 of 2) 2003 Pneumococcal 50+ years (2 of 2 - PCV) 06/18/2018 06/18/2017, 08/15/2015 GFR 07/24/2018 07/24/2017, 08/09/2014 LDL Cholesterol 07/24/2018 07/24/2017, 02/2 , 04/10/2015, Additional history exists COVID-19 Vaccine (1 - 2023-25 season) 2024 Influenza (#1) 2024 06/18/2017, 11/02/2016, 07/14/2015, Additional history exists DTaP/Tdap/Td (2 - Td or Tdap) 03/14/2026 03/14/2016 RSV (1 - 1-dose 75+ series) 2028 Hepatitis C Screening Completed 07/24/2017 Abdominal Aorta Imaging Discontinued HPV Vaccine Aged Out No longer eligi ble based on patient's age to complete this topic Hep A Aged Out No longer eligi ble based on patient's age to complete this topic Hep B Aged Out No longer eligi ble based on patient's age to complete this topic Hib Aged Out No longer eligi ble based on patient's age to complete this topic Meningococcal ACWY Aged Out No longer eligible based on patient's age to complete this topic Zoster (Zostavax) Discontinued Procedures * Due to [place] [employer] law, this organization might not be sharing negative HIV tests. Procedure Name Priority Date/Time Associated Diagnosis Comments COMPREHENSIVE METABOLIC PANEL Routine 07/24/2017 7:10 AM EST HEPATITIS C ANTIBODY W/ REFLEX TO RNA, QN, RT PCR Routine 07/24/2017 7:10 AM EST LIPID PANEL, PLASMA Routine 07/24/2017 7 :10 AM EST from Last 3 Months or Most Recently Relevant to Health Maintenance Results * Due to [place] [employer] law, this organization might not be sharing negative HIV tests. * HEPATITIS C ANTIBODY W/ REFLEX TO RNA, QN, RT PCR (07/24/2017 7:10 AM EST) Hepatitis C virus Ab NON-REACT ARIANE NON-REACT ARIANE [facility] CONVERSIONS Hepatitis C virus Ab 0.10 <1.00 [facility] CONVERSION[facility] Comment:Antibodies to HCV we re not detected. NOTE: This does not entirely exclude the possibility of exposure to HCV since antibody production may lag infection. If there is a high suspicion of HCV infection HCV RNA testing may be of diagnostic value. 07/24/2017 7:10 AM EST Narrative PHCT CONVERSIONS - 07/24/2017 6:30 PM EST Frozen Specimen already at [facility]. Testing Performed at: [facility], [address] [place] [address], , Senior Product Marketing Manager: Mai Fletcher MD CLPOL#[id number] 2:54PM by Lopez Tyler: ??Letter mailed. Lopez Tyler LABORATORY Final Result Performing Organization Address [facility] de Phone Number PHCT CONVERSIONS * (ABNORMAL) LIPID PANEL, PLASMA (07/24/2017 7:10 AM EST) Cholesterol 245(H) 0 - 199 mg/dL [facility] Triglyceride 171(H) 0 - 150 mg/dL [facility] VLDL Cholesterol 34 5 - 40 mg/dL [facility] HDL Cholesterol 45 40 - 80 mg/dL [facility] LDL Cholesterol 166(H) 0 - 100 mg/dL [facility] Cholesterol Non-HDL 200(H) 0 - 130 mg/dl [facility] CHOL/HDL Ratio 5.4 [facility] CONVERSIONS 07/24/2017 7:10 AM EST Narrative PHCT CONVERSIONS - 07/24/2017 6:39 PM EST Frozen Specimen already at [facility]. FASTING: NO Fasting reference interval. ??[facility] Lip[facility] testing results require a 12 hour fasting specimen. ??Use caution when interpreting non-fasting cholesterol and triglyceride results. Testing Performed at: [facility], [address] [place] [id number], , Senior Product Marketing Manager: Mai Fletcher MD CLPOL#[id number] 2:54PM by Lopez Tyler: ??Letter mailed. Lopez Tyler LABORATORY Final Result Performing Organization Address [facility] Co de Phone Number PHCT CONVERSIONS * (ABNORMAL) COMPREHENSIVE METABOLIC PANEL (07/24/2017 7:10 AM EST) Glucose 53(L) 65 - 99 mg/dL [facility]VERSION[facility] Comment:Fasting Reference In terval Urea Nitrogen Blood (BUN) 19 8 - 23 mg/dL [facility] Creatinine 1.0 0.5 - 1.2 mg/dL [facility] GFR 75 >=60 [facility]VERSION[facility] Comment: Units of measure for estimated Glomular Filtration Rate: ??mL/min/1.73m2. ??If patient is , multiply reported result by 1.21 eGFR calculation is only valid for adults 18-85 years of age. Stages of Chronic Kidney Disease Stage ? GFR 3 ? 30-59 4 ? 15-29 5 ? <15 Sodium 143 133 - 145 mmol/L [facility] CONVERSION[facility] Potassium 4.8 3.3 - 5.3 mmol/L [facility]VERSION[facility] Chloride 102 96 - 108 mmol/L [facility] Bicarbonate 31 22 - 32 mmol/L [facility] CONVERSION[facility] Anion gap 3 11 [facility]VERSION[facility] Calcium 10.2 8.6 - 10.5 mg/dL [facility] CONVERSION[facility] Protein Total (Serum) 7.2 6.2 - 8.2 g/dL [facility]VERSION[facility] Albumin 5.0 3.5 - 5.2 g/dl [facility] CONVERSION[facility] Alkaline phosphatase 80 40 - 130 U/L [facility] CONVERSION[facility] AST (SGOT) 23 4 - 40 U/L [facility] CONVERSION[facility] ALT (SGPT) 24 4 - 41 U/L [facility] CONVERSION[facility] Bilirubin Total 0.5 0.1 - 1.0 mg/dL [facility] CONVERSION[facility] Globulin 2.2 1.4 - 4.8 g/dl [facility] CONVERSIONS Albumin/Globulin 2 1 - 3 PH[facility] T CONVERSIONS Osmolality 276 253 - 285 mOsm/kg [facility] CONVERSION[facility] BUN/Creatinine Ratio 19 6 - 25 PH[facility] CONVERSIONS 07/24/2017 7:10 AM EST Narrative PHCT CONVERSIONS - 07/24/2017 6:48 PM EST Frozen Specimen already at [facility]. FASTING: NO Testing Performed at: [facility], [address] [place] [id number], , Senior Product Marketing Manager: Mai Fletcher MD CLPOL#[id number] 2:54PM by Lopez Tyler: ??Letter mailed. us Lopez Tyler LABORATORY Final Result PHCT CONVERSIONS from Last 3 Months or Most Recently Relevant to Health Maintenance Care Teams Video Production Assistant Relationship Specialty Start Date End Date Lopez Tyler PCP - General 04/21/23
--- OUTSIDE RECORDS SUMMARY | 2024-10-05 17:27 | XMS_ITS ---
Author Organization [facility] Address [address] [place] [address] Care Team Providers Care Chemical Milling Processor Name Role Phone Mauri Lange Primary Care Provider Unav ailable Nj Lee Unavailable [phone] Jean Encounters Encounter Location Date Provider Diagnosis [facility] [address] [place] [address] 07/09/2024 Nj Lee Plan Of Treatment No Information Progress Notes * Navarro JADE GDOB:1954 (69 yo M)Acc No.[id number]:07/09/2024 Progress Note Patient:?YASMANYNavarro FIERRO Lalitha Provider:?Nj Lee DPM :1955???Age:69 Y???Sex:Male Lacho e:07/09/2024 Address:[address], [place] Pcp:ROHITH Villanueva Subjective: * Chief Complaints: * ???1. Dr Jean. * Medical History:? Objective: * Vitals:? Assessment: Plan: * Treatment: * Images: * The named appointment provid er may or may not be the originator of this progress note, and it is not deemed complete until electronically signed by the appointment provider. Sign off status: Pending * Provider:?Nj Lee DPM Date:?2023 Generated for Tyesha richardson/Emanuel/Roscoe on:?10/05/2024 05:26 PM EST
--- OUTSIDE RECORDS SUMMARY | 2024-10-05 17:27 | XMS_ITS | Continuity of Care Document ---
Author Organization [facility] Address [address] [place] [address] Phone Care Team Providers Care Automatic Pinsetter Mechanic Name Role Phone Lisa Costa, Jake Unavailable [...] [facility] [address] [facility], [place], [place], [id number], tel:[phone] [facility] [place] Benign Eyelid Lesion 5 Lisa Joseph. [address] [place] [address], [id number] , . tel: [phone] Referring Provider: Funmi Martin, [address] [place] [address], [place], [place], [facility]. tel:[phone] [facility], [address], [id number], tel:[phone] [facility] [place] Benign Eyelid Lesion 5 Lisa Joseph. [address] [place] [address], [id number] , . tel: [phone] Referring Provider: Funmi Martin, [address] [place] [address], [place], [address]. tel:[phone] [facility], [address] [place] [address], [id number], tel:[phone] [facility] [place] Benign Eyelid LesionBlepharitis 5 Lisa Joseph. [address] [place] [address], [id number] , . tel: [phone] Referring Provider: Funmi Martin, [address] [place] [address], [facility]. tel:[phone] Family History Family Member Type Diagnosis Age At Onset Maternal grandfather Problem (finding) Diabetes mellit Mother Problem (finding) cancer Brother Problem (finding) Diabetes mellitus Payers Payer name Insurance type Covered alliance party ID Authoriza tianthony(s) BCBS [facility] Blue Shield [id number] Social History Type Description Quantity Date Captured [...]
--- OUTSIDE RECORDS SUMMARY | 2024-10-05 17:27 | XMS_ITS | Clinical Summary ---
Author Organization [facility] Address [address] [place] [address] Care Team Providers Care Tile Erector Name Role Phone Mauri Dixon NP Primary Care Provider [phone] Allergies No known active allergies Medications pramipexole (MIRAPEX) 0.5 MG tablet Take 0.5 mg by mouth at bed time at bedtime 1 Active metFORMIN (GLUCOPHAGE) 1000 MG tablet Take 1 tablet by mouth 2 (two) times a day Active atorvastatin (LIPITOR) 20 MG tablet Take 1 tablet by mouth 1 (one) time each day Active aspirin 325 MG EC tablet Take 325 mg by mouth 1 (one) time each day Active Multiple Vitamins-Minera ls (Multivitamin Adults 50+) tablet Take 1 tablet by mouth 1 (one) time each day Active omega-3 (FISH OIL) 1000 MG capsule Take 1 capsule by mouth 1 (one) time each day Active Tresiba FlexTouch 200 UNIT/ML injection ADMINISTER 50 UNITS UNDER THE SKIN DAILY 1 Active senna (SENOKOT) 8.6 MG tablet Take 1 tablet by mouth at bed time 1 Active pioglitazone (ACTOS) 30 MG tablet Take 30 mg by mouth 1 (one) time each day 1 Active Jardiance 10 MG tablet Take 1 tablet by mouth 1 (one) time each day in the morning 1 Active lisinopril 20 MG tablet Take 1 tablet (20 mg total) by mouth 1 (one) time each day 90 tablet 3 2 Active Active Problems Problem Noted Date Diagnosed Date Hypertension 06/26/2021 Hypertensive nephrosclerosis 06/26/2021 Chronic kidney disease stage 2 06/15/2021 Proteinuria 06/15/2021 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 Immunizations Name Administration Dates Next Due Influenza (IM) Preservative Free 07/21/2016 Family History Medical History Relation Comments Diabetes Sibling brother Relation Status Comments Father Alive Mother Sibling Social History Tobacco Use Types Packs/Day Years Used Date Smoking Tobacco: Never Smokeless Tobacco: Never Tobacco Cessation:Counseling Given: No Alcohol Use Standard Drinks/Week Comments No 0 (1 standard drink = 0.6 oz pur e alcohol) Sex and Gender Information Value Date Recorded Sex Assigned at Not on file Legal Sex Male 8:32 AM EDT Gender Identity Not on file Sexual Orientation Not on file Last Filed Vital Signs Vital Sign Reading Time Taken Comments Blood Pressure 116/70 05/21/2023 8:23 AM EDT Pulse 72 05/21/2023 8:23 AM EDT Temperature - - Respiratory Rate - - Oxygen Saturation 95% 05/21/2023 8:23 AM EDT Inhaled Oxygen Concentration - - Weight 87.8 kg (193 lb 9.6 oz) 05/21/2023 8:23 A M EDT Height 177.8 cm (5' 10 ) 05/21/2023 8:23 AM EDT Body Mass Index 27.78 05/21/2023 8:23 AM EDT Plan of Treatment Health Maintenance Due Date Last Done Comments Pneumococcal Vaccine: 65+ Years (1 of 2 - PCV) 1959 Colorectal Cancer Screening: Annual FOBT 2002 Colorectal Cancer Screening: Colonoscopy 2002 Colorectal Cancer Screening: Sigmoidoscopy 2002 Diabetes: Ophthalmology Exam 10/16/2020 Diabetes: Pedal Pulse Checked 10/16/2020 Diabetes: Sensory Foot Exam 10/16/2020 Diabetes: Visual Foot Exam 10/16/2020 Diabetes: Hemoglobin A1C 07/21/2021 021, 12/25/2020 Influenza Vaccine (#1) 2024 07/21/2016 Hepatitis B Vaccine Aged Out No longe r eligible based on patient's age to complete this topic Procedures Procedure Name Priority Date/Time Associated Diagnosis Comments EXT RESULT ENTRY Routine 04/20/2021 from Last 3 Months or Most Recently Relevant to Health Maintenance Results * (ABNORMAL) EXT RESULT ENTRY (04/20/2021) Ferritin 51.0 18.0 - 300.0 NG/ML Glucose 223(A) 60 - 200 CRP 0.14 mg/L Hemoglobin A1C 9.4(A) 4.0 - 6.0 Lipase 14 0 - 53 U/L 04/20/2021 us Historical Provider LAB BLOOD ORDERABLES Aniya l Result from Last 3 Months or Most Recently Relevant to Health Maintenance Insurance [facility] MEDICARE [facility] MEDICARE Care Teams Tile Erector Relationship Specialty Start Date End Date Mauri Dixon NP 1963 [facility] [place] [place] [address] PCP - General 09/25/20
--- OUTSIDE RECORDS SUMMARY | 2024-10-05 17:27 | XMS_ITS | Encounter Summary ---
Author Organization [facility] Address [address] [place] [address] Phone Care Team Providers Care Administrative Court Justice Name Role Phone Celeblake Mauri MONTEZ Primary Care Provider [phone] Reason for Visit * Reason Comments Med Refill Encounter Details Date Type Department Care Team (Late st Contact Info) Description 03/28/2021 Refill [facility] [address] [place] [address] Vignesh Figueroa MD [address] [facility] [address] [place] [address] Social History Tobacco Use Types Packs/Day Years Used Date Smoking Tobacco: Never Alcohol Use Standard Drinks/Week Comments No 0 (1 standard drink = 0.6 oz pur e alcohol) Sex and Gender Information Value Date Recorded Sex Assigned at Not on file Legal Sex Male 8:32 AM EDT Gender Identity Not on file Sexual Orientation Not on file documented as of this encounter Miscellaneous Notes * Telephone Encounter - Nichelle Morgan - 04/11/2021 12:23 PM EDT Spoke to pt and was scheduled for next available on 05/16/21 at 10:00 a.m; I will be mailing him an appt letter as well as a lab order. Pt is aware * Telephone Encounter - Vignesh Figueroa MD - 04/01/2021 11:54 AM EDT Needs appt documented in this encounter Plan of Treatment Not on file documented as of this encounter Visit Diagnoses Not on filedocumented in this encounter Care Teams Administrative Court Justice Relationship Specialty Start Date End Date Mauri Dixon NP [facility] [place] [address] PCP - General 09/25/20 documented as of this encounter
--- OUTSIDE RECORDS SUMMARY | 2024-10-05 17:27 | XMS_ITS | Clinical Summary ---
Author Organization [address] Address [address] [place] [address] Care Team Providers Care Engine Turner Name Role Phone Lopez Tyler MD Primary Care Provider [phone] Medications insulin lispro (HUMALOG) 100 unit/mL vial Inject under the skin 3 (three) times daily before meals. Consult your sliding scale for dosing. Active gabapentin (NEURONTIN) 600 MG tablet Take 600 mg by mouth 3 (three) times daily with meals. Active metFORMIN (FORTAMET) 500 MG (OSM) 24 hr tablet Take 500 mg by mouth daily with dinner. Active atorvastatin (LIPITOR) 40 MG tablet Take 40 mg by mouth daily. Active aspirin 325 MG EC tablet Take 325 mg by mouth daily. Active Immunizations Name Administration Dates Next Due Influenza, split virus, trivalent, Preservative Free 07/21/2016 Social History Tobacco Use Types Packs/Day Years Used Date Smoking Tobacco: Never Assessed Sex and Gender Information Value Date Recorded Sex Assigned at Not on file Legal Sex Male 8:55 AM EDT Gender Identity Not on file Sexual Orientation Not on file Last Filed Vital Signs Vital Sign Reading Time Taken Comments Blood Pressure 147/75 09/04/2016 3:21 PM EST Pulse 86 09/04/2016 3:21 PM EST Temperature 36.8 ??C (98.3 ??F) 09/04/2016 1:12 PM ES T Respiratory Rate 18 09/04/2016 3:21 PM EST Oxygen Saturation 97% 09/04/2016 3:21 PM EST Inhaled Oxygen Concentration - - Weight - - Height - - Body Mass Index - - Plan of Treatment Health Maintenance Due Date Last Done Comments HIV screening 1966 Hepatitis C screening 1971 Tetanus adult (Td q 10,TDAP once) 1973 Lipid disorder screening 1993 Colon cancer screening, Colonoscopy 1998 Shingles vaccine (Shingrix) (1 of 2 - Shingrix (RZV) 2 Dose Standard Series) 2003 Pneumo Vaccine 65+ (1 of 1 - PCV) 2018 Diabetes screening 09/04/2019 09/04/2016 Influenza vaccine 04/15/2024 07/21/2016 Covid-19 vaccine series ( - 2023- season) 2024 RSV Discussion (1 - 1-dose 7 5+ series) 2028 Meningococcal Vaccine Aged Out No whitney ramya eligible based on patient's age to complete this topic Procedures Procedure Name Priority Date/Time Associated Diagnosis Comments COMPREHENSIVE METABOLIC PANEL STAT 09/04/2016 2:01 PM EST from Last 3 Months or Most Recently Relevant to Health Maintenance Results * (ABNORMAL) Comprehensive metabolic panel (09/04/2016 2:01 PM EST) Sodium 137 136 - 145 mmol/L 09/04/2016 2:45 PM [facility] Potassium 4.4 3.5 - 5.1 mmol/L 09/04/2016 2:45 PM [facility] Comment:Slightly Hemolyzed. Chloride 105 95 - 115 mmol/L 09/04/2016 2:45 PM [facility] CO2 20(L) 21 - 32 mmol/L 09/04/2016 2:45 PM [facility] Anion Gap 12 5 - 18 09/04/2016 2:45 PM [facility] Glucose 84 70 - 100 mg/dL 09/04/2016 2:45 PM [facility] BUN 26(H) 8 - 25 mg/dL 09/04/2016 2:45 PM [facility] Creatinine 1.03 0.50 - 1.30 mg/dL 09/04/2016 2:45 PM [facility] Calcium 9.0 8.4 - 10.3 mg/dL 09/04/2016 2:45 PM [facility] BUN/Creatinine Ratio 25.2(H) 8.0 - 25.0 09/04/2016 2:45 PM [facility] Total Protein 7.5 6.4 - 8.2 g/dL 09/04/2016 2:45 PM [facility] Albumin 3.8 3.4 - 5.0 g/dL 09/04/2016 2:45 PM [facility] Total Bilirubin 0.4 0.0 - 1.0 mg/dL 09/04/2016 2:45 PM [facility] Alkaline Phosphatase 78 20 - 135 U/L 09/04/2016 2:45 PM [facility] Alanine Aminotransferase (ALT) 35 12 - 78 U/L 09/04/2016 2:45 PM [facility] Aspartate Aminotransferase (AST) 94(H) 5 - 37 U/L 09/04/2016 2:45 PM [facility] Globulin 3.7 g/dL 09/04/2016 2:45 PM [facility] A/G Ratio 1.0 09/04/2016 2:45 PM [facility] AST/ALT Ratio 2.7 09/04/2016 2:45 PM [facility] eGFR (Afr Amer) >60 >60 mL/min/1. 73m2 09/04/2016 2:45 PM [facility] Comment: Values under 60mL/min/1.73m2 may indicate CKD if noted for ?? more than 3 months. eGFR is only valid if creatinine is at steady state. eGFR (NON -Gibraltarian) >60 >60 mL/min/1. 73m2 09/04/2016 2:45 PM [facility] Comment: Values under 60mL/min/1.73m2 may indicate CKD if noted for ?? more than 3 months. eGFR is only valid if creatinine is at steady state. Osmolality Calculation 278 275 - 295 mOsm/kg 09/04/2016 2:45 PM [facility] Blood specimen (specimen) Venipuncture / Unknown 09/04/2016 2:01 PM EST 09/04/2016 1:58 PM EST us Mauri Plasencia MD LAB BLOOD ORDERABLES Final Resul t [facility] [address] [place] [address], [facility] [phone] from Last 3 Months or Most Recently Relevant to Health Maintenance Insurance BCBS Care Teams Engine Turner Relationship Specialty Start Date End Date Lopez Tylre MD PCP - General Family Medicine 09/04/16
== END 2024-10-05 16:42 | disposition home or self-care (01) ==
PROVIDERS: PCP Nurse Practitioner Family; Visit Provider Nurse Practitioner Family
DX: Z00.00 Encounter for general adult medical examination without abnormal findings (principal); E11.29 Type 2 diabetes mellitus with other diabetic kidney complication; S72.001A Fracture of unspecified part of neck of right femur, initial encounter for closed fracture; C18.9 Malignant neoplasm of colon, unspecified; I50.20 Unspecified systolic (congestive) heart failure; K83.1 Obstruction of bile duct; Z92.21 Personal history of antineoplastic chemotherapy; R53.1 Weakness; K75.0 Abscess of liver; Z12.5 Encounter for screening for malignant neoplasm of prostate; Z23 Encounter for immunization

== ENCOUNTER → 2024-10-05 15:34 | Outpatient (BNVA) | payer MEDICARE, SELFPAY | PROVIDERS: PCP Nurse Practitioner Family; Visit Provider Nurse Practitioner Family | DX: Z23 Encounter for immunization (principal); S72.001D Fracture of unspecified part of neck of right femur, subsequent encounter for closed fracture with routine healing; C18.9 Malignant neoplasm of colon, unspecified; E11.29 Type 2 diabetes mellitus with other diabetic kidney complication; R53.1 Weakness; K75.0 Abscess of liver; K83.1 Obstruction of bile duct; I50.20 Unspecified systolic (congestive) heart failure; Z92.21 Personal history of antineoplastic chemotherapy | CPT/HCPCS: 90471; 90677; 96127; 99212; 99397 ==

== ENCOUNTER 2024-10-11 06:20 | Outpatient (REF) | payer MEDICARE, SELFPAY ==
[2024-10-11 06:04] LABS: MANUAL DIFF FLAG NO
--- OUTSIDE RECORDS SUMMARY | 2024-10-11 06:35 | XMS_ITS | Patient Health Record ---
Author Organization [facility] Address [address] [place] [address] Care Team Providers Care Working Manager Name Role Phone Mauri Lange Primary Care Provider Unav ailable Rosa Nj Unavailable [phone] Allergies No Known Allergies Results Component Value [...] Problem Acquired hammer toe of right foot (36385597616066 05) Other hammer toe(s) (acquired), right foot (M20.41) Active confirmed Problem Type 2 diabetes mellitus with peripheral angiopathy (144386290) Type 2 diabetes mellitus with diabetic peripheral angiopathy without gangrene (E11.51) Active confirmed Problem Acquired hammer toe of left foot (96913409683926 03) Other hammer toe(s) (acquired), left foot (M20.42) Active confirmed Vital Signs Blood pressure diastolic 80 mm Hg 01/06/2024 Height 5 ft 10 in in 01/06/2024 Blood pressure systolic 120 mm Hg 01/06/2024 Weight 190 lbs 01/06/2024 BMI 27.26 kg/m2 01/06/2024 Procedures Procedure Date Ordered Date Performed Result Body Sit e 05628-PJSUKBD NAIL, 6 OR MORE 01/06/2024 N/A 00924-CLOQ SKIN LESIONS, 2 TO 4 01/06/2024 N/A Encounters Encounter Location Date Provider Diagnosis [facility] [place] [address] [place] [address] 01/06/2024 Nj Lee Type 2 diabetes mellitus with diabetic peripheral angiopathy without gangrene E11.51 ; Tinea unguium B35.1 ; Pain in right toe(s) M79.674 ; Pain in left toe(s) M79.675 and Xerosis of skin L85.3 [facility] [place] [address] [place] [address] 12/22/2023 Nj Lee [facility] [address] 07/14/2024 Nj Lee Assessments Encounter Date Diagnosis [...] Treatment Pending Test Test Name Order Date 58534-FVVAIRQ NAIL, 6 OR MORE 10/31/2020 97811-SEPPRPD NAIL, 6 OR MORE 01/30/2021 86733-WEZMEFU NAIL, 6 OR MORE 05/22/2021 84106-AIEOTBD NAIL, 6 OR MORE 09/25/2021 15063-SJRWKVS NAIL, 6 OR MORE 04/05/2022 12181-ZHZFQSG NAIL, 6 OR MORE 08/16/2022 14355-KISVVXH NAIL, 6 OR MORE 02/28/2023 11593-UYPSITR NAIL, 6 OR MORE 07/01/2023 20064-LUCTZPF NAIL, 6 OR MORE 01/06/2024 48145-SZUV SKIN LESIONS, 2 TO 4 01/06/20 24 43395-LNLG SKIN LESIONS, 2 TO 4 07/01/20 85025-RFCL SKIN LESIONS, 2 TO 4 02/29/20 02563-VQAU SKIN LESIONS, 2 TO 4 08/16/20 99829-YODS SKIN LESIONS, 2 TO 4 04/05/20 99661-NUEM SKIN LESIONS, 2 TO 4 09/25/19 47886-EFOU SKIN LESIONS, 2 TO 4 05/22/20 21 32518-PVYO SKIN LESIONS, 2 TO 4 01/31/20 27502-ANPD SKIN LESIONS, 2 TO 4 02/16/20 21 Insurance Providers Payer Name Payer Address Payer Phone Subscriber Number Group Number Insured Name Patient Relationship to Insured Coverage Start Date Coverage End Date [employer] Medicare [id number] [address] [address] [place] [address] [id number] Navarro López Self - patient is the insured Medical (General) History Medical History History ICD Code Cancer - Colon type II diabetes Measles Mumps Chicken pox CAD Post Covid Vaccine CVA Surgical History Surgery Date(Month/Year) colon cancer 04/2019 left cataract surgery 01/01/2021 left corneal transplant 01/01/2021 Hospitalization History Reason Date(Month/Year) [facility]St[facility] 1 week Rehab 2 weeks 01/15/2022
--- OUTSIDE RECORDS SUMMARY | 2024-10-11 06:35 | XMS_ITS | Clinical Summary ---
Author Organization [facility] Facility Address [address] [place] [address] Care Team Providers Care Ecological Modeler Name Role Phone Mauri Dixon NP Primary Care Provider Allergies No known active allergies Medications pramipexole [...] Most Recently Relevant to Health Maintenance Insurance [facility] MEDICARE [facility] MEDIC[facility] Care Teams Ecological Modeler Relationship Specialty Start Date End Date Mauri Dixon NP [address] [facility] [place] [address] PCP - General 09/25/20
--- OUTSIDE RECORDS SUMMARY | 2024-10-11 06:35 | XMS_ITS | Clinical Summary ---
Author Organization [facility] Address [address] [place] [address] Phone Care Team Providers Care It Network Administrator Name Role Phone Juan ManuelkoryMauri NP Primary Care Provider + [phone] Allergies No known active allergies Medications Medication [...] - 08/19/2024 2:27 PM EST Hospital Encounter [facility] Emergency [address] [place] [address] Augusto Moctezuma MD Bell, Alistair [...] - 100 mg/dL 08/19/2024 12:22 PM EST [facility] ([facility]) [facility] Blood Capillary blood specimen / Unknown 08/19/2024 12:21 PM EST 08/19/2024 12:23 PM EST Augusto Moctezuma MD LAB POINT OF CARE TE ST DOCKED DEVICE UNSOLICITED RESULTS [facility] LAB [address] [place] [address], [place] [phone] * US Abdomen Limited (08/19/2024 11:45 AM [...] Signed Date: 08/19/2024 12:11 ET Workstation ID: [id number] Transcribed By: Self Edit Transcribed Date: 08/19/2024 [...] Signed Date: 08/19/2024 12:11 ET Workstation ID: [id number] Transcribed By: Self Edit Transcribed Date: 08/19/2024 12:07 ET Cindy Carlson NP IMG US PROCEDURES * (ABNORMAL) CBC auto differential (08/19/2024 6:01 AM EST) Only the most recent of2 resultswithin the time period is included. WBC 6.3 4.8 - 10.8 K/mcL LAB HEMETOLOGY METHOD 08/19/2024 7:50 AM [facility] RBC 4.30(L) 4.50 - 5.50 M/mcL LAB HEMETOLOGY METHOD 08/19/2024 7:50 AM [facility] Hemoglobin 12.7(L) 13.5 - 17.5 g/dL LAB HEMETOLOGY METHOD 08/19/2024 7:50 AM [facility] Hematocrit 40.6(L) 42.0 - 54.0 % LAB HEMETOLOGY METHOD 08/19/2024 7:50 AM [facility] MCV 94.6 79.0 - 98.0 FL LAB HEMETOLOGY METHOD 08/19/2024 7:50 AM [facility] MCH 29.6 27.0 - 32.0 pcg LAB HEMETOLOGY METHOD 08/19/2024 7:50 AM [facility] MCHC 31.3(L) 32.0 - 37.0 g/dL LAB HEMETOLOGY METHOD 08/19/2024 7:50 AM [facility] RDW 16.3(H) 11.0 - 15.0 % LAB HEMETOLOGY METHOD 08/19/2024 7:50 AM [facility] Platelets 08/19/2024 7:50 AM [facility] Comment:Not measured. Unable to quantitate due to platelet clumping MPV 12.6(H) 7.0 - 11.0 FL LAB HEMETOLOGY METHOD 08/19/2024 7:50 AM [facility] NRBC 0.0 <1.0 % LAB HEMETOLOGY METHOD 08/19/2024 7:50 AM [facility] NRBC Absolute 0.00 <0.10 K/mcL LAB HEMETOLOGY METHOD 08/19/2024 7:50 AM [facility] Neutrophils Relative 79.2 % LAB HEMETOLOGY METHOD 08/19/2024 7:50 AM [facility] Lymphocytes Relative 10.1 % LAB HEMETOLOGY METHOD 08/19/2024 7:50 AM [facility] Monocytes Relative 8.3 % LAB HEMETOLOGY METHOD 08/19/2024 7:50 AM [facility] Eosinophils Relative 1.6 % LAB HEMETOLOGY METHOD 08/19/2024 7:50 AM [facility] Basophils Relative 0.5 % LAB HEMETOLOGY METHOD 08/19/2024 7:50 AM [facility] Immature Granulocytes Relative 0.3 % LAB HEMETOLOGY METHOD 08/19/2024 7:50 AM [facility] Neutrophils Absolute 4.95 1.50 - 7.00 K/mcL LAB HEMETOLOGY METHOD 08/19/2024 7:50 AM EST [facility] Lymphocytes Absolute 0.63(L) 1.00 - 5.00 K/mcL LAB HEMETOLOGY METHOD 08/19/2024 7:50 AM [facility] Monocytes Absolute 0.52 0.20 - 1.00 K/mcL LAB HEMETOLOGY METHOD 08/19/2024 7:50 AM EST [facility] Eosinophils Absolute 0.10 0.00 - 0.50 K/mcL LAB HEMETOLOGY METHOD 08/19/2024 7:50 AM EST [facility] Basophils Absolute 0.03 0.00 - 0.20 K/mcL LAB HEMETOLOGY METHOD 08/19/2024 7:50 AM [facility] Immature Granulocytes Absolute 0.02 0.00 - 0.03 K/mcL LAB HEMETOLOGY METHOD 08/19/2024 7:50 AM [facility] Blood Venous blood specimen / Unknown 08/19/2024 6:01 AM EST 08/19/2024 6:36 AM EST Augusto Moctezuma MD LAB BLOOD ORDERABLES [facility] [address] [place] [address], * (ABNORMAL) Sedimentation rate (08/19/2024 6:01 AM EST) Only the most recent of2 resultswithin the time period is included. Sed Rate 99(H) 0 - 20 mm/hr LAB HEMETOLOGY METHOD 08/19/2024 7:01 AM EST [facility] Blood Venous blood specimen / Unknown 08/19/2024 6:01 AM EST 08/19/2024 6:36 AM EST Magen DESAI LAB BLOOD ORDERABLES [facility] [address] [place] [address], * (ABNORMAL) Bilirubin, total and direct (08/19/2024 6:01 AM EST) Total Bilirubin 1.2 0.0 - 1.4 mg/dL LAB CHEMISTRY METHOD 08/19/2024 8:58 AM EST [facility] Bilirubin, Direct 0.7(H) 0.0 - 0.3 mg/dL LAB CHEMISTRY METHOD 08/19/2024 8:58 AM [facility] Bilirubin, Indirect 0.5 0.0 - 1.1 mg/dL LAB CHEMISTRY METHOD 08/19/2024 8:58 AM [facility] Blood Venous blood specimen / Unknown 08/19/2024 6:01 AM EST 08/19/2024 6:36 AM EST Cindy Carlson NP LAB BLOOD ORDERABLES [facility] [address] [place] [address], * (ABNORMAL) Hepatic function panel (08/19/2024 6:01 AM EST) Total Protein 6.2 6.0 - 8.0 g/dL LAB CHEMISTRY METHOD 08/19/2024 8:58 AM [facility] Albumin 2.4(L) 3.2 - 5.0 g/dL LAB CHEMISTRY METHOD 08/19/2024 8:58 AM [facility] Total Bilirubin 1.2 0.0 - 1.4 mg/dL LAB CHEMISTRY METHOD 08/19/2024 8:58 AM [facility] Bilirubin, Direct 0.7(H) 0.0 - 0.3 mg/dL LAB CHEMISTRY METHOD 08/19/2024 8:58 AM EST [facility] Bilirubin, Indirect 0.5 0.0 - 1.1 mg/dL LAB CHEMISTRY METHOD 08/19/2024 8:58 AM [facility] ALT (SGPT) 33 10 - 60 unit/L LAB CHEMISTRY METHOD 08/19/2024 8:58 AM [facility] AST (SGOT) 41 10 - 42 unit/L LAB CHEMISTRY METHOD 08/19/2024 8:58 AM [facility] Alkaline Phosphatase 207(H) 42 - 121 unit/L LAB CHEMISTRY METHOD 08/19/2024 8:58 AM [facility] Blood Venous blood specimen / Unknown 08/19/2024 6:01 AM EST 08/19/2024 6:36 AM EST Cindy Carlson NP LAB BLOOD ORDERABLES [facility] [address] [place] [address], * (ABNORMAL) Basic metabolic panel (08/19/2024 6:01 AM EST) Sodium 136 133 - 145 mmol/L LAB CHEMISTRY METHOD 08/19/2024 7:08 AM [facility] Potassium 4.1 3.5 - 5.5 mmol/L LAB CHEMISTRY METHOD 08/19/2024 7:08 AM [facility] Chloride 104 96 - 110 mmol/L LAB CHEMISTRY METHOD 08/19/2024 7:08 AM [facility] CO2 24 21 - 32 mmol/L LAB CHEMISTRY METHOD 08/19/2024 7:08 AM [facility] Anion Gap 8 3 - 11 LAB CHEMISTRY METHOD 08/19/2024 7:08 AM [facility] Glucose 107(H) 70 - 100 mg/dL LAB CHEMISTRY METHOD 08/19/2024 7:08 AM [facility] BUN 21 5 - 25 mg/dL LAB CHEMISTRY METHOD 08/19/2024 7:08 AM [facility] Creatinine 0.62(L) 0.70 - 1.30 mg/dL LAB CHEMISTRY METHOD 08/19/2024 7:08 AM [facility] eGFR 102 >=60 mL/min/1. 73m2 LAB CHEMISTRY METHOD 08/19/2024 7:08 AM [facility] Comment:Calculation based on the??Chronic Kidney Disease Epidemiology Collaboration (CKD-EPI) equation refit??without adjustment for race. BUN/Creatinine Ratio 33.9 LAB CHEMISTRY METHOD 08/19/2024 7:08 AM [facility] Calcium 8.7 8.5 - 10.5 mg/dL LAB CHEMISTRY METHOD 08/19/2024 7:08 AM [facility] Blood Venous blood specimen / Unknown 08/19/2024 6:01 AM EST 08/19/2024 6:36 AM EST Augusto Moctezuma MD LAB BLOOD ORDERABLES [facility] [address] [place] [address], * CT Chest/Abdomen/Pelvis w Contrast (08/18/2024 7:14 [...] Signed Date: 08/18/2024 14:37 ET Workstation ID: [id number] Transcribed By: Self Edit Transcribed Date: 08/18/2024 [...] Signed Date: 08/18/2024 14:37 ET Workstation ID: [id number] Transcribed By: Self Edit Transcribed Date: 08/18/2024 14:35 ET Augusto Moctezuma MD IMG XR PROCEDURES * Respiratory virus panel molecular study (08/18/2024 12:25 PM EST) Adenovirus Detection by PCR Not Detected Not Detected LAB MICROBIOLOGY METHOD 08/18/2024 1:36 PM [facility] Influenza A PCR Not Detected Not Detected LAB MICROBIOLOGY METHOD 08/18/2024 1:36 PM [facility] Influenza B PCR Not Detected Not Detected LAB MICROBIOLOGY METHOD 08/18/2024 1:36 PM [facility] Coronavirus 229E Not Detected Not Detected LAB MICROBIOLOGY METHOD 08/18/2024 1:36 PM [facility] Coronavirus HKU1 Not Detected Not Detected LAB MICROBIOLOGY METHOD 08/18/2024 1:36 PM [facility] Coronavirus OC43 Not Detected Not Detected LAB MICROBIOLOGY METHOD 08/18/2024 1:36 PM [facility] Coronavirus NL63 Not Detected Not Detected LAB MICROBIOLOGY METHOD 08/18/2024 1:36 PM [facility] Parainfluenza Virus 1 Not Detected Not Detected LAB MICROBIOLOGY METHOD 08/18/2024 1:36 PM [facility] Parainfluenza Virus 2 Not Detected Not Detected LAB MICROBIOLOGY METHOD 08/18/2024 1:36 PM [facility] Parainfluenza Virus 3 Not Detected Not Detected LAB MICROBIOLOGY METHOD 08/18/2024 1:36 PM [facility] Parainfluenza Virus 4 Not Detected Not Detected LAB MICROBIOLOGY METHOD 08/18/2024 1:36 PM [facility] RSV PCR Not Detected Not Detected LAB MICROBIOLOGY METHOD 08/18/2024 1:36 PM [facility] Human Metapneumovirus A and B Not Detected Not Detected LAB MICROBIOLOGY METHOD 08/18/2024 1:36 PM [facility] Rhinovirus/Entero virus Not Detected Not Detected LAB MICROBIOLOGY METHOD 08/18/2024 1:36 PM [facility] Bordetella pertussis Not Detected Not Detected LAB MICROBIOLOGY METHOD 08/18/2024 1:36 PM [facility] Bordetella parapertussis Not Detected Not Detected LAB MICROBIOLOGY METHOD 08/18/2024 1:36 PM [facility] Mycoplasma pneumo by PCR Not Detected Not Detected LAB MICROBIOLOGY METHOD 08/18/2024 1:36 PM [facility] Chlamydia pneumoniae Not Detected Not Detected LAB MICROBIOLOGY METHOD 08/18/2024 1:36 PM [facility] SARS COV-2 Not Detected Not Detected LAB MICROBIOLOGY METHOD 08/18/2024 1:36 PM [facility] Swab Both anterior nares / Unknown Non-blood Collection / Unknown 08/18/2024 12:25 PM EST 08/18/2024 12:34 PM [facility] - 08/18/2024 1:36 PM EST Testing was performed using the Speclee Respiratory Pathogen PCR Assay. All results must [...] MICROBIOLOGY - ENERAL ORDERABLES Performing Organization Address City/[facility]/ZIP Co de Phone Number [facility] [address] [place] [address], [place] [phone] * Culture blood (08/18/2024 12:24 PM EST) Only the most recent of2 resultswithin the time period is included. Pathologist [facility] Culture, Blood No growth at 5 days 08/23/2024 1:01 PM EST [facility] Blood Venous blood specimen / Unknown Venipuncture / Unknown 08/18/2024 12:24 PM EST 08/18/2024 12:34 PM EST Augusto Moctezuma MD LAB MICROBIOLOGY - ENERAL ORDERABLES Performing Organization Address [facility] Co de Phone Number [facility] [address] [place] [address], [place] [phone] * Lactate, with reflex (08/18/2024 12:17 PM EST) [facility] LACTIC ACID 1.2 0.4 - 2.0 mmol/L LAB CHEMISTRY METHOD 08/18/2024 1:03 PM EST [facility] Blood Venous blood specimen / Unknown Venipuncture / Unknown 08/18/2024 12:17 PM EST 08/18/2024 12:33 PM EST Augusto Moctezuma MD LAB BLOOD ORDERABLES Performing Organization Address City/[facility]/ZIP Co de Phone Number [facility] [address] [place] [address], [place] [phone] * (ABNORMAL) Blood culture pathogens molecular study (08/18/2024 12:17 PM EST) [facility] Escherichia coli Detected (A) Not Detected LAB MICROBIOLOGY METHOD 08/19/2024 6:52 AM [facility] Blood Venous blood specimen / Unknown Venipuncture / Unknown 08/18/2024 12:17 PM EST 08/18/2024 12:32 PM EST Augusto Moctezuma MD LAB MICROBIOLOGY - G ENERAL ORDERABLES Performing Organization Address City/[facility]/ZIP Co de Phone Number [facility] [address] [place] [address], [place] [phone] * Cardiac Enzymes - CPK (08/18/2024 12:17 PM EST) [facility] Total CK 29 22 - 269 unit/L LAB CHEMISTRY METHOD 08/18/2024 1:02 PM [facility] Blood Venous blood specimen / Unknown Venipuncture / Unknown 08/18/2024 12:17 PM EST 08/18/2024 12:33 PM EST Augusto Moctezuma MD LAB BLOOD ORDERABLES [facility] [address] [place] [address], [place] [phone] * (ABNORMAL) Comprehensive metabolic panel (08/18/2024 12:17 PM EST) [facility] Sodium 138 133 - 145 mmol/L LAB CHEMISTRY METHOD 08/18/2024 1:03 PM [facility] Potassium 3.7 3.5 - 5.5 mmol/L LAB CHEMISTRY METHOD 08/18/2024 1:03 PM [facility] Chloride 106 96 - 110 mmol/L LAB CHEMISTRY METHOD 08/18/2024 1:03 PM [facility] CO2 23 21 - 32 mmol/L LAB CHEMISTRY METHOD 08/18/2024 1:03 PM [facility] Anion Gap 9 3 - 11 LAB CHEMISTRY METHOD 08/18/2024 1:03 PM [facility] Glucose 103(H) 70 - 100 mg/dL LAB CHEMISTRY METHOD 08/18/2024 1:03 PM [facility] BUN 26(H) 5 - 25 mg/dL LAB CHEMISTRY METHOD 08/18/2024 1:03 PM [facility] Creatinine 0.68(L) 0.70 - 1.30 mg/dL LAB CHEMISTRY METHOD 08/18/2024 1:03 PM [facility] eGFR 99 >=60 mL/min/1. 73m2 LAB CHEMISTRY METHOD 08/18/2024 1:03 PM [facility] Comment:Calculation based on the??Chronic Kidney Disease Epidemiology Collaboration (CKD-EPI) equation refit??without adjustment for race. BUN/Creatinine Ratio 38.2 LAB CHEMISTRY METHOD 08/18/2024 1:03 PM [facility] Calcium 8.3(L) 8.5 - 10.5 mg/dL LAB CHEMISTRY METHOD 08/18/2024 1:03 PM [facility] AST (SGOT) 35 10 - 42 unit/L LAB CHEMISTRY METHOD 08/18/2024 1:03 PM [facility] ALT (SGPT) 30 10 - 60 unit/L LAB CHEMISTRY METHOD 08/18/2024 1:03 PM [facility] Alkaline Phosphatase 179(H) 42 - 121 unit/L LAB CHEMISTRY METHOD 08/18/2024 1:03 PM [facility] Total Protein 5.6(L) 6.0 - 8.0 g/dL LAB CHEMISTRY METHOD 08/18/2024 1:03 PM [facility] Albumin 2.3(L) 3.2 - 5.0 g/dL LAB CHEMISTRY METHOD 08/18/2024 1:03 PM EST [facility] Total Bilirubin 1.3 0.0 - 1.4 mg/dL LAB CHEMISTRY METHOD 08/18/2024 1:03 PM EST [facility] Blood Venous blood specimen / Unknown Venipuncture / Unknown 08/18/2024 12:17 PM EST 08/18/2024 12:33 PM EST Augusto Moctezuma MD LAB BLOOD ORDERABLES [facility] [address] [place] [address], from Last 3 Months Advance Directives Documents on File Type Date Recorded Patient Transcription Specialist Expl anation Advance Directives and Saurabh g [...] currently active code status orders. Care Teams It Network Administrator Relationship Specialty Start Date End Date Mauri Dixon NP [address] [facility] [place] PCP - General 08/18/23
--- OUTSIDE RECORDS SUMMARY | 2024-10-11 06:36 | XMS_ITS | Encounter Summary ---
Author Organization [facility] Address [address] [facility] [address] [place] [address] Phone Care Team Providers Care Rubber Mill Tender Name Role Phone Celeblake Mauri MONTEZ Primary Care Provider Reason for Visit * Reason Comments Med Refill Encounter Details Date Type Department Care Team (Late st Contact Info) Description 03/28/2021 Refill [facility] [address] [place] [address] [place] [address] Vignesh Figueroa MD [address] [facility] [address] [place] [address] Social History Tobacco Use Types [...] on filedocumented in this encounter Care Teams Rubber Mill Tender Relationship Specialty Start Date End Date Mauri Dixon NP [facility] [place] [address] PCP - General 09/25/20 documented as of this encounter
--- OUTSIDE RECORDS SUMMARY | 2024-10-11 06:36 | XMS_ITS | Clinical Summary ---
Author Organization [address] Address [address] [place] [address] Care Team Providers Care Reinforcing Steel Worker Wire Mesh Name Role Phone Lopez Tyler MD Primary Care Provider + [phone] Medications insulin lispro (HUMALOG) 100 unit/mL vial [...] 136 - 145 mmol/L 09/04/2016 2:45 PM [facility] Potassium 4.4 3.5 - 5.1 mmol/L 09/04/2016 2:45 PM [facility] Comment:Slightly Hemolyzed. Chloride 105 95 - 115 mmol/L 09/04/2016 2:45 PM [facility] CO2 20(L) 21 - 32 mmol/L 09/04/2016 2:45 PM [facility] Anion Gap 12 5 - 18 09/04/2016 2:45 PM [facility] Glucose 84 70 - 100 mg/dL 09/04/2016 2:45 PM [facility] BUN 26(H) 8 - 25 mg/dL 09/04/2016 2:45 PM [facility] Creatinine 1.03 0.50 - 1.30 mg/dL 09/04/2016 2:45 PM [facility] Calcium 9.0 8.4 - 10.3 mg/dL 09/04/2016 2:45 PM [facility] BUN/Creatinine Ratio 25.2(H) 8.0 - 25.0 09/04/2016 2:45 PM [facility] Total Protein 7.5 6.4 - 8.2 g/dL 09/04/2016 2:45 PM [facility] Albumin 3.8 3.4 - 5.0 g/dL 09/04/2016 2:45 PM [facility] Total Bilirubin 0.4 0.0 - 1.0 mg/dL 09/04/2016 2:45 PM [facility] Alkaline Phosphatase 78 20 - 135 U/L 09/04/2016 2:45 PM [facility] Alanine Aminotransferase (ALT) 35 12 - 78 U/L 09/04/2016 2:45 PM [facility] Aspartate Aminotransferase (AST) 94(H) 5 - 37 U/L 09/04/2016 2:45 PM [facility] Globulin 3.7 g/dL 09/04/2016 2:45 PM [facility] A/G Ratio 1.0 09/04/2016 2:45 PM [facility] AST/ALT Ratio 2.7 09/04/2016 2:45 PM [facility] eGFR (Afr Amer) >60 >60 mL/min/1. 73m2 09/04/2016 2:45 PM [facility] Comment: Values under 60mL/min/1.73m2 may indicate CKD if noted for ?? more than 3 months. eGFR is only valid if creatinine is at steady state. eGFR (NON -Burundian) >60 >60 mL/min/1. 73m2 09/04/2016 2:45 PM [facility] Comment: Values under 60mL/min/1.73m2 may indicate CKD if noted for ?? more than 3 months. eGFR is only valid if creatinine is at steady state. Osmolality Calculation 278 275 - 295 mOsm/kg 09/04/2016 2:45 PM [facility] Blood specimen (specimen) Venipuncture / Unknown 09/04/2016 2:01 PM EST 09/04/2016 1:58 PM EST us Mauri Plasencia MD LAB BLOOD ORDERABLES Final Resul t [facility] [address] [place] [address], [facility] [phone] from Last 3 Months or Most Recently Relevant to Health Maintenance Insurance BCBS Care Teams Reinforcing Steel Worker Wire Mesh Relationship Specialty Start Date End Date Lopez Tyler MD PCP - General Family Medicine 09/04/16
--- OUTSIDE RECORDS SUMMARY | 2024-10-11 06:36 | XMS_ITS | Clinical Summary ---
Author Organization [facility] Address [address] [place] [address] Care Team Providers Care Bingo Manager Name Role Phone Lopez Tyler Primary Care [...] Zoster (Zostavax) Discontinued Procedures * Due to [place] [employer] law, this organization might not be sharing [...] to Health Maintenance Results * Due to [place] [employer] law, this organization might not be sharing [...] 6:30 PM EST Frozen Specimen already at [facility]. Testing Performed at: [facility], [address] [place] [address], , Cloth Mercerizer Operator: Mai Fletcher MD CLPOL#[id number] 2:54PM by Lopez Tyler: ??Letter mailed. Lopez Tyler LABORATORY Final Result Performing Organization Address [facility] de Phone Number PHCT CONVERSIONS * [...] 6:39 PM EST Frozen Specimen already at [facility]. FASTING: NO Fasting reference interval. ??[employer] Lip[facility] testing results require a 12 hour fasting specimen. ??Use caution when interpreting non-fasting cholesterol and triglyceride results. Testing Performed at: [facility], [address] [place] [address], , Cloth Mercerizer Operator: Mai Fletcher MD CLPOL#[id number] 2:54PM by Lopez Tyler: ??Letter mailed. Lopez Tyler LABORATORY Final Result Performing Organization Address [facility] Co de Phone Number PHCT CONVERSIONS * [...] 6:48 PM EST Frozen Specimen already at [facility]. FASTING: NO Testing Performed at: [facility], [address] [place] [address], , Cloth Mercerizer Operator: Mai Fletcher MD CLPOL#[id number] 2:54PM by Lopez Tyler: ??Letter mailed. us Lopez Tyler LABORATORY Final Result PHCT CONVERSIONS from Last 3 Months or Most Recently Relevant to Health Maintenance Care Teams Bingo Manager Relationship Specialty Start Date End Date Loepz Tyler PCP - General 04/21/23
--- OUTSIDE RECORDS SUMMARY | 2024-10-11 06:36 | XMS_ITS ---
Author Organization [facility] Address [address] [place] [address] Care Team Providers Care Servicer Coin Machines Name Role Phone Mauri Lange Primary Care Provider Unav ailable Nj Lee Unavailable [phone] Jena Encounters Encounter Location Date Provider Diagnosis [facility] [address] [place] [address] 07/09/2024 Nj Lee Plan Of Treatment No Information Progress Notes * Navarro JADE GDOB:1954 (69 yo M)Acc No.[id number]:07/09/2024 Progress Note Patient:?YASMANYNavarro FIERRO Lalitha Provider:?Nj Lee DPM :1955???Age:69 Y???Sex:Male Lacho e:07/09/2024 Address:[address], [place] Pcp:ROHITH Villanueva Subjective: * Chief Complaints: * [...] Provider:?Nj Lee DPM Date:?2023 Generated for Tyesha richardson/Emanuel/Armaniitting on:?10/11/2024 06:36 AM EST
--- OUTSIDE RECORDS SUMMARY | 2024-10-11 06:36 | XMS_ITS ---
Author Organization [facility] Address [address] [facility] [place] [address] Care Team Providers Care Commission Specialist Name Role Phone Mauri Lange Primary Care Provider Unav ailable Nj Lee Unavailable [phone] REASON FOR VISIT CX 07/16/24 Encounters Encounter Location Date Provider Diagnosis [address] [address] 07/14/2024 Nj Lee Plan Of Treatment No Information Progress Notes * Navarro JADE GDOB:1954 (69 yo M)Acc No.[id number]:07/14/2024 Patient:?Navarro Jade :1955???Age:69 Y???Sex:Male Address:[address] [place], [address] * true * Date:? Generated for Printi dylan/Emanuel/eTransmitting on:?10/11/2024 06:36 AM EST
--- OUTSIDE RECORDS SUMMARY | 2024-10-11 06:36 | XMS_ITS | Continuity of Care Document ---
Author Organization [facility] Address [address] [place] [phone] Phone Care Team Providers Care Collector Name Role Phone Lisa Costa, Jake Unavailable [...] [facility], [address] [facility], [place], [place], [id number], tel:[phone] [facility] [place] Benign Eyelid Lesion 5 Lisa Joseph. [address] [place] [address], [id number] , . tel: [phone] Referring Provider: Funmi Martin, [address] [place] [address], [place], [place], [facility]. tel:[phone] [facility], [address], [id number], tel:[phone] [facility] [place] Benign Eyelid Lesion 5 Lisa Joseph. [address] [place] [address], [id number] , . tel: [phone] Referring Provider: Funmi Martin, [address] [place] [address], [place], [address]. tel:[phone] [facility], [address] [place] [address], [id number], tel:[phone] [facility] [place] Benign Eyelid LesionBlepharitis 5 Lisa Joseph. [address] [place] [address], [id number] , . tel: [phone] Referring Provider: Funmi Martin, [address] [place] [address], [facility]. tel:[phone] Family History Family Member Type Diagnosis Age At Onset Maternal grandfather Problem (finding) Diabetes mellit Mother Problem (finding) cancer Brother Problem (finding) Diabetes mellitus Payers Payer name Insurance type Covered alliance party ID Authoriza tianthony(s) BCBS [facility] Blue Shield [id number] Social History Type Description Quantity Date Captured [...]
--- OUTSIDE RECORDS SUMMARY | 2024-10-11 06:36 | XMS_ITS ---
Author Organization [facility] Address [address] [place] [phone] Care Team Providers Care Elementary Art Teacher Name Role Phone Mauri Lange Primary Care Provider Unav ailable Nj Lee Unavailable [phone] Encounters Encounter Location Date Provider Diagnosis [facility] [address] [place] [address] 07/16/2024 Nj Lee Plan Of Treatment No Information Progress Notes * Navarro JAED GDOB:1954 (69 yo M)Acc No.[id number]:07/16/2024 Progress Note Patient:?YASMANYNavarro FIERRO Lalitha Provider:?Nj Lee DPM :1955???Age:69 Y???Sex:Male Lacho e:07/16/2024 Address: [address], [id number] Pcp:ROHITH Villanueva Subjective: * Chief Complaints: * ??? * Medical History:? Objective: * Vitals:? Assessment: Plan: * Treatment: * Images: * The named appointment provid er may or may not be the originator of this progress note, and it is not deemed complete until electronically signed by the appointment provider. Sign off status: Pending * Provider:?Nj Lee DPM Date:?2023 Generated for Tyesha richardson/Emanuel/eTransmitting on:?10/11/2024 06:35 AM EST
--- OUTSIDE RECORDS SUMMARY | 2024-10-11 06:36 | XMS_ITS | Clinical Summary ---
Author Organization [facility] Address [address] [place] [address] Care Team Providers Care Lead Qa Analyst Name Role Phone Lopez Tyler MD Primary Care Provider [phone] Social History Tobacco Use Types Packs/Day Years [...] age to complete this topic Care Teams Lead Qa Analyst Relationship Specialty Start Date End Date Lopez Tyler MD [address] [place] [phone] PCP - General 08/12/14
[2024-10-11 07:06] LABS: Basophils Absolute Auto 0.1 X10*3/uL (0.0-0.2); Basophils Percent Auto 1.6 % (0-2); Eosinophils Absolute Auto 0.2 X10*3/uL (0.0-0.4); Eosinophils Percent Auto 5.5 % (0-4); Hematocrit 40.6 % (42.0-52.0); Hemoglobin 13.1 g/dl (14.0-18.0); Imm Gran Abs Auto 0.02 X10*3/uL (0.00-0.03); Imm Gran Pct Auto 0.5 % (0.0-0.4); Lymphocytes Percent Auto 22.6 % (20-40); Mean Corpuscular HGB Conc 32.3 g/dl (31.0-36.0); Mean Corpuscular Hemoglobin 29.5 pg (27.0-33.0); Mean Corpuscular Volume 91.4 fL (80.0-98.0); Mean Platelet Volume 12.2 fL (9.4-12.4); Monocytes Absolute Auto 0.6 X10*3/uL (0.1-1.2); Monocytes Percent Auto 13.1 % (2-11); Neutrophils Absolute Auto 2.5 x10*3/uL (2.0-8.3); Neutrophils Percent Auto 56.7 % (45-73); Red Blood Count 4.44 X10*6/uL (4.60-5.80); Red Cell Distribution Width 16.1 % (11.0-16.0); White Blood Count 4.3 X10*3/uL (4.8-10.8)
[2024-10-11 07:10] LABS: Platelet Count 95 X10*3/uL (160-400)
[2024-10-11 07:44] LABS: Anion Gap 14 (12-20); Blood Urea Nitrogen 24 mg/dL (9-16); Calcium 8.8 mg/dL (8.4-10.2); Carbon Dioxide 24 mmol/L (22-29); Chloride 105 mmol/L (96-108); Estimated Glomerular Filt Rate > 60; Sodium 139 mmol/L (135-145)
[2024-10-11 07:51] LABS: Glucose Random 56 mg/dL (60-115)
== END 2024-10-11 06:21 | disposition home or self-care (01) ==
LOC: HO.MMNH1L 06:20
PROVIDERS: Visit Provider Nurse Practitioner
DX: S72.91XD Unspecified fracture of right femur, subsequent encounter for closed fracture with routine healing (principal); E11.22 Type 2 diabetes mellitus with diabetic chronic kidney disease; G62.89 Other specified polyneuropathies
CPT/HCPCS: 36415; 80048; 85025

== ENCOUNTER 2024-10-15 08:42 | Outpatient (REF) | payer MEDICARE, SELFPAY ==
--- NOTE | ~2024-10-15 | XR_ITS ---
EXAMINATION: XR HIP 2 OR MORE VIEWS RIGHT HISTORY: M25.551 - Pain in right hip COMPARISON: Comparison is made with the prior examination dated 09/03/2024. FINDINGS: A single AP view of the pelvis and 2 views of the right hip are submitted. The patient is again noted to be status post right total hip arthroplasty. The orthopedic elements are in anatomic alignment. There is no radiographic evidence of loosening. There is no fracture or dislocation. There are vascular calcifications. XR/XR hip RT min 2V IMPRESSION: Status post right total hip arthroplasty. Electronically signed by: Giorgi Nguyễn MD 10/19/2024 10:09 AM [facility]
--- OUTSIDE RECORDS SUMMARY | 2024-10-18 09:05 | XMS_ITS | Clinical Summary ---
Author Organization [facility] Address [address] [place] [address] Care Team Providers Care Machine Slat Basket Maker Name Role Phone Mauri Dixon NP Primary Care Provider [phone] Allergies No known active allergies Medications pramipexole [...] Most Recently Relevant to Health Maintenance Insurance [facility] MEDICARE [facility] MEDICARE Care Teams Machine Slat Basket Maker Relationship Specialty Start Date End Date Mauri Dixon NP [address] [place] [address] PCP - General 09/25/20
--- OUTSIDE RECORDS SUMMARY | 2024-10-18 09:05 | XMS_ITS | Clinical Summary ---
Author Organization [address] Address [address] [place] [address] Care Team Providers Care Director Of Religious Life Name Role Phone Lopez Tyler MD Primary Care Provider + [phone] Medications insulin lispro (HUMALOG) 100 unit/mL vial [...] 136 - 145 mmol/L 09/04/2016 2:45 PM [facility] Potassium 4.4 3.5 - 5.1 mmol/L 09/04/2016 2:45 PM [facility] Comment:Slightly Hemolyzed. Chloride 105 95 - 115 mmol/L 09/04/2016 2:45 PM [facility] CO2 20(L) 21 - 32 mmol/L 09/04/2016 2:45 PM [facility] Anion Gap 12 5 - 18 09/04/2016 2:45 PM [facility] Glucose 84 70 - 100 mg/dL 09/04/2016 2:45 PM [facility] BUN 26(H) 8 - 25 mg/dL 09/04/2016 2:45 PM [facility] Creatinine 1.03 0.50 - 1.30 mg/dL 09/04/2016 2:45 PM [facility] Calcium 9.0 8.4 - 10.3 mg/dL 09/04/2016 2:45 PM [facility] BUN/Creatinine Ratio 25.2(H) 8.0 - 25.0 09/04/2016 2:45 PM [facility] Total Protein 7.5 6.4 - 8.2 g/dL 09/04/2016 2:45 PM [facility] Albumin 3.8 3.4 - 5.0 g/dL 09/04/2016 2:45 PM [facility] Total Bilirubin 0.4 0.0 - 1.0 mg/dL 09/04/2016 2:45 PM [facility] Alkaline Phosphatase 78 20 - 135 U/L 09/04/2016 2:45 PM [facility] Alanine Aminotransferase (ALT) 35 12 - 78 U/L 09/04/2016 2:45 PM [facility] Aspartate Aminotransferase (AST) 94(H) 5 - 37 U/L 09/04/2016 2:45 PM [facility] Globulin 3.7 g/dL 09/04/2016 2:45 PM [facility] A/G Ratio 1.0 09/04/2016 2:45 PM [facility] AST/ALT Ratio 2.7 09/04/2016 2:45 PM [facility] eGFR (Afr Amer) >60 >60 mL/min/1. 73m2 09/04/2016 2:45 PM [facility] Comment: Values under 60mL/min/1.73m2 may indicate CKD if noted for ?? more than 3 months. eGFR is only valid if creatinine is at steady state. eGFR (NON -Lebanese) >60 >60 mL/min/1. 73m2 09/04/2016 2:45 PM [facility] Comment: Values under 60mL/min/1.73m2 may indicate CKD if noted for ?? more than 3 months. eGFR is only valid if creatinine is at steady state. Osmolality Calculation 278 275 - 295 mOsm/kg 09/04/2016 2:45 PM [facility] Blood specimen (specimen) Venipuncture / Unknown 09/04/2016 2:01 PM EST 09/04/2016 1:58 PM EST us Mauri Plasencia MD LAB BLOOD ORDERABLES Final Resul t [facility] [address] [place] [id number], [facility] [phone] from Last 3 Months or Most Recently Relevant to Health Maintenance Insurance BCBS Care Teams Director Of Religious Life Relationship Specialty Start Date End Date Lopez Tyler MD PCP - General Family Medicine 09/04/16
--- OUTSIDE RECORDS SUMMARY | 2024-10-18 09:05 | XMS_ITS | Encounter Summary ---
Author Organization [facility] Address [address] [facility] [address] [place] [address] Phone Care Team Providers Care Budget Manager Name Role Phone Celeblake Mauri MONTEZ Primary Care Provider [phone] Reason for Visit * Reason Comments Med Refill Encounter Details Date Type Department Care Team (Late st Contact Info) Description 03/28/2021 Refill [facility] [address] [place] [address] [place] [address] Vignesh Figueroa MD [address] [facility] [address] [place] [address] Social History Tobacco Use Types [...] on filedocumented in this encounter Care Teams Budget Manager Relationship Specialty Start Date End Date Mauri Dixon NP [facility] [place] [address] PCP - General 09/25/20 documented as of this encounter
--- OUTSIDE RECORDS SUMMARY | 2024-10-18 09:05 | XMS_ITS | Clinical Summary ---
Author Organization [facility] Address [address] [place] [address] Care Team Providers Care Loading Unit Operator Powder Charging Name Role Phone Lopez Tyler Primary Care [...] Zoster (Zostavax) Discontinued Procedures * Due to [place] [employer] law, this organization might not be sharing [...] to Health Maintenance Results * Due to [place] [employer] law, this organization might not be sharing [...] 6:30 PM EST Frozen Specimen already at [facility]. Testing Performed at: [facility], [address] [place] [address], , Licensed Esthetician: Mai Fletcher MD CLPOL#[id number] 2:54PM by Lopez Tyler: ??Letter mailed. Lopez Tyler LABORAT[facility] Final Result Performing Organization Address [facility] de Phone Number PHCT CONVERSIONS * (ABNORMAL) [...] 6:39 PM EST Frozen Specimen already at [facility]. FASTING: NO Fasting reference interval. ??[facility] Lip[facility] testing results require a 12 hour fasting specimen. ??Use caution when interpreting non-fasting cholesterol and triglyceride results. Testing Performed at: [facility], [address] [place] [id number], , Licensed Esthetician: Mai Fletcher MD CLPOL#[id number] 2:54PM by Lopez Tyler: ??Letter mailed. Lopez Tyler LABORATORY Final Result Performing Organization Address [facility] Co de Phone Number PHCT CONVERSIONS [...] 6:48 PM EST Frozen Specimen already at [facility]. FASTING: NO Testing Performed at: [facility], [address] [place] [id number], , Licensed Esthetician: Mai Fletcher MD CLPOL#[id number] 2:54PM by Lopez Tyler: ??Letter mailed. us Lopez Tyler LABORATORY Final Result PHCT CONVERSIONS from Last 3 Months or Most Recently Relevant to Health Maintenance Care Teams Loading Unit Operator Powder Charging Relationship Specialty Start Date End Date Lopez Tyler PCP - General 04/21/23
--- OUTSIDE RECORDS SUMMARY | 2024-10-18 09:05 | XMS_ITS | Clinical Summary ---
Author Organization [facility] Address [address] [place] [address] Phone Care Team Providers Care Laborer/Key Man Name Role Phone Juan ManuelkoryMauri NP Primary Care Provider + [phone] Allergies No known active allergies Medications Medication [...] - 08/19/2024 2:27 PM EST Hospital Encounter [facility] Emergency [address] [place] [address] Augusto Moctezuma MD Bell, Alistair [...] - 100 mg/dL 08/19/2024 12:22 PM EST [facility] ([facility]) [facility] Blood Capillary blood specimen / Unknown 08/19/2024 12:21 PM EST 08/19/2024 12:23 PM EST Augusto Moctezuma MD LAB POINT OF CARE TE ST DOCKED DEVICE UNSOLICITED RESULTS [facility] ([facility]) HOSPITAL LAB [address] [place] [address], [place] [phone] * US Abdomen Limited (08/19/2024 11:45 AM [...] Signed Date: 08/19/2024 12:11 ET Workstation ID: [id number] Transcribed By: Self Edit Transcribed Date: 08/19/2024 [...] Signed Date: 08/19/2024 12:11 ET Workstation ID: [id number] Transcribed By: Self Edit Transcribed Date: 08/19/2024 12:07 ET Cindy Carlson NP IMG US PROCEDURES * (ABNORMAL) CBC auto differential (08/19/2024 6:01 AM EST) Only the most recent of2 resultswithin the time period is included. WBC 6.3 4.8 - 10.8 K/mcL LAB HEMETOLOGY METHOD 08/19/2024 7:50 AM [facility] LAB RBC 4.30(L) 4.50 - 5.50 M/mcL LAB HEMETOLOGY METHOD 08/19/2024 7:50 AM [facility] LAB Hemoglobin 12.7(L) 13.5 - 17.5 g/dL LAB HEMETOLOGY METHOD 08/19/2024 7:50 AM [facility] LAB Hematocrit 40.6(L) 42.0 - 54.0 % LAB HEMETOLOGY METHOD 08/19/2024 7:50 AM [facility] LAB MCV 94.6 79.0 - 98.0 FL LAB HEMETOLOGY METHOD 08/19/2024 7:50 AM [facility] LAB MCH 29.6 27.0 - 32.0 pcg LAB HEMETOLOGY METHOD 08/19/2024 7:50 AM [facility] LAB MCHC 31.3(L) 32.0 - 37.0 g/dL LAB HEMETOLOGY METHOD 08/19/2024 7:50 AM [facility] LAB RDW 16.3(H) 11.0 - 15.0 % LAB HEMETOLOGY METHOD 08/19/2024 7:50 AM [facility] Platelets 08/19/2024 7:50 AM [facility] LAB Comment:Not measured. Unable to quantitate due to platelet clumping MPV 12.6(H) 7.0 - 11.0 FL LAB HEMETOLOGY METHOD 08/19/2024 7:50 AM [facility] LAB NRBC 0.0 <1.0 % LAB HEMETOLOGY METHOD 08/19/2024 7:50 AM [facility] LAB NRBC Absolute 0.00 <0.10 K/mcL LAB HEMETOLOGY METHOD 08/19/2024 7:50 AM [facility] Neutrophils Relative 79.2 % LAB HEMETOLOGY METHOD 08/19/2024 7:50 AM [facility] Lymphocytes Relative 10.1 % LAB HEMETOLOGY METHOD 08/19/2024 7:50 AM [facility] Monocytes Relative 8.3 % LAB HEMETOLOGY METHOD 08/19/2024 7:50 AM [facility] Eosinophils Relative 1.6 % LAB HEMETOLOGY METHOD 08/19/2024 7:50 AM [facility] Basophils Relative 0.5 % LAB HEMETOLOGY METHOD 08/19/2024 7:50 AM [facility] Immature Granulocytes Relative 0.3 % LAB HEMETOLOGY METHOD 08/19/2024 7:50 AM [facility] Neutrophils Absolute 4.95 1.50 - 7.00 K/mcL LAB HEMETOLOGY METHOD 08/19/2024 7:50 AM EST [facility] Lymphocytes Absolute 0.63(L) 1.00 - 5.00 K/mcL LAB HEMETOLOGY METHOD 08/19/2024 7:50 AM [facility] Monocytes Absolute 0.52 0.20 - 1.00 K/mcL LAB HEMETOLOGY METHOD 08/19/2024 7:50 AM EST [facility] LAB Eosinophils Absolute 0.10 0.00 - 0.50 K/mcL LAB HEMETOLOGY METHOD 08/19/2024 7:50 AM EST [facility] Basophils Absolute 0.03 0.00 - 0.20 K/mcL LAB HEMETOLOGY METHOD 08/19/2024 7:50 AM [facility] Immature Granulocytes Absolute 0.02 0.00 - 0.03 K/mcL LAB HEMETOLOGY METHOD 08/19/2024 7:50 AM [facility] LAB Blood Venous blood specimen / Unknown 08/19/2024 6:01 AM EST 08/19/2024 6:36 AM EST Aguusto Moctezuma MD LAB BLOOD ORDERABLES [facility] [address] [place] [address], * (ABNORMAL) Sedimentation rate (08/19/2024 6:01 AM EST) Only the most recent of2 resultswithin the time period is included. Sed Rate 99(H) 0 - 20 mm/hr LAB HEMETOLOGY METHOD 08/19/2024 7:01 AM EST [facility] Blood Venous blood specimen / Unknown 08/19/2024 6:01 AM EST 08/19/2024 6:36 AM EST Magen DESAI LAB BLOOD ORDERABLES [facility] [address] [place] [address], * (ABNORMAL) Bilirubin, total and direct (08/19/2024 6:01 AM EST) Total Bilirubin 1.2 0.0 - 1.4 mg/dL LAB CHEMISTRY METHOD 08/19/2024 8:58 AM EST [facility] Bilirubin, Direct 0.7(H) 0.0 - 0.3 mg/dL LAB CHEMISTRY METHOD 08/19/2024 8:58 AM [facility] Bilirubin, Indirect 0.5 0.0 - 1.1 mg/dL LAB CHEMISTRY METHOD 08/19/2024 8:58 AM [facility] Blood Venous blood specimen / Unknown 08/19/2024 6:01 AM EST 08/19/2024 6:36 AM EST Cindy Carlson NP LAB BLOOD ORDERABLES [facility] [address] [place] [address], * (ABNORMAL) Hepatic function panel (08/19/2024 6:01 AM EST) Total Protein 6.2 6.0 - 8.0 g/dL LAB CHEMISTRY METHOD 08/19/2024 8:58 AM [facility] Albumin 2.4(L) 3.2 - 5.0 g/dL LAB CHEMISTRY METHOD 08/19/2024 8:58 AM [facility] Total Bilirubin 1.2 0.0 - 1.4 mg/dL LAB CHEMISTRY METHOD 08/19/2024 8:58 AM [facility] Bilirubin, Direct 0.7(H) 0.0 - 0.3 mg/dL LAB CHEMISTRY METHOD 08/19/2024 8:58 AM EST [facility] Bilirubin, Indirect 0.5 0.0 - 1.1 mg/dL LAB CHEMISTRY METHOD 08/19/2024 8:58 AM [facility] ALT (SGPT) 33 10 - 60 unit/L LAB CHEMISTRY METHOD 08/19/2024 8:58 AM [facility] AST (SGOT) 41 10 - 42 unit/L LAB CHEMISTRY METHOD 08/19/2024 8:58 AM [facility] Alkaline Phosphatase 207(H) 42 - 121 unit/L LAB CHEMISTRY METHOD 08/19/2024 8:58 AM [facility] Blood Venous blood specimen / Unknown 08/19/2024 6:01 AM EST 08/19/2024 6:36 AM EST Cindy Carlson NP LAB BLOOD ORDERABLES [facility] [address] [place] [address], * (ABNORMAL) Basic metabolic panel (08/19/2024 6:01 AM EST) Sodium 136 133 - 145 mmol/L LAB CHEMISTRY METHOD 08/19/2024 7:08 AM [facility] Potassium 4.1 3.5 - 5.5 mmol/L LAB CHEMISTRY METHOD 08/19/2024 7:08 AM [facility] Chloride 104 96 - 110 mmol/L LAB CHEMISTRY METHOD 08/19/2024 7:08 AM [facility] CO2 24 21 - 32 mmol/L LAB CHEMISTRY METHOD 08/19/2024 7:08 AM [facility] Anion Gap 8 3 - 11 LAB CHEMISTRY METHOD 08/19/2024 7:08 AM [facility] Glucose 107(H) 70 - 100 mg/dL LAB CHEMISTRY METHOD 08/19/2024 7:08 AM [facility] BUN 21 5 - 25 mg/dL LAB CHEMISTRY METHOD 08/19/2024 7:08 AM [facility] Creatinine 0.62(L) 0.70 - 1.30 mg/dL LAB CHEMISTRY METHOD 08/19/2024 7:08 AM [facility] LAB eGFR 102 >=60 mL/min/1. 73m2 LAB CHEMISTRY METHOD 08/19/2024 7:08 AM [facility] LAB Comment:Calculation based on the??Chronic Kidney Disease Epidemiology Collaboration (CKD-EPI) equation refit??without adjustment for race. BUN/Creatinine Ratio 33.9 LAB CHEMISTRY METHOD 08/19/2024 7:08 AM [facility] Calcium 8.7 8.5 - 10.5 mg/dL LAB CHEMISTRY METHOD 08/19/2024 7:08 AM [facility] Blood Venous blood specimen / Unknown 08/19/2024 6:01 AM EST 08/19/2024 6:36 AM EST Augusto Moctezuma MD LAB BLOOD ORDERABLES [facility] [address] [place] [address], * CT Chest/Abdomen/Pelvis w Contrast (08/18/2024 7:14 [...] Signed Date: 08/18/2024 14:37 ET Workstation ID: [id number] Transcribed By: Self Edit Transcribed Date: 08/18/2024 [...] Signed Date: 08/18/2024 14:37 ET Workstation ID: [id number] Transcribed By: Self Edit Transcribed Date: 08/18/2024 14:35 ET Augusto Moctezuma MD IMG XR PROCEDURES * Respiratory virus panel molecular study (08/18/2024 12:25 PM EST) Adenovirus Detection by PCR Not Detected Not Detected LAB MICROBIOLOGY METHOD 08/18/2024 1:36 PM [facility] Influenza A PCR Not Detected Not Detected LAB MICROBIOLOGY METHOD 08/18/2024 1:36 PM [facility] Influenza B PCR Not Detected Not Detected LAB MICROBIOLOGY METHOD 08/18/2024 1:36 PM [facility] Coronavirus 229E Not Detected Not Detected LAB MICROBIOLOGY METHOD 08/18/2024 1:36 PM [facility] Coronavirus HKU1 Not Detected Not Detected LAB MICROBIOLOGY METHOD 08/18/2024 1:36 PM [facility] Coronavirus OC43 Not Detected Not Detected LAB MICROBIOLOGY METHOD 08/18/2024 1:36 PM [facility] Coronavirus NL63 Not Detected Not Detected LAB MICROBIOLOGY METHOD 08/18/2024 1:36 PM [facility] Parainfluenza Virus 1 Not Detected Not Detected LAB MICROBIOLOGY METHOD 08/18/2024 1:36 PM [facility] Parainfluenza Virus 2 Not Detected Not Detected LAB MICROBIOLOGY METHOD 08/18/2024 1:36 PM [facility] Parainfluenza Virus 3 Not Detected Not Detected LAB MICROBIOLOGY METHOD 08/18/2024 1:36 PM [facility] Parainfluenza Virus 4 Not Detected Not Detected LAB MICROBIOLOGY METHOD 08/18/2024 1:36 PM [facility] RSV PCR Not Detected Not Detected LAB MICROBIOLOGY METHOD 08/18/2024 1:36 PM [facility] Human Metapneumovirus A and B Not Detected Not Detected LAB MICROBIOLOGY METHOD 08/18/2024 1:36 PM [facility] Rhinovirus/Entero virus Not Detected Not Detected LAB MICROBIOLOGY METHOD 08/18/2024 1:36 PM [facility] Bordetella pertussis Not Detected Not Detected LAB MICROBIOLOGY METHOD 08/18/2024 1:36 PM [facility] Bordetella parapertussis Not Detected Not Detected LAB MICROBIOLOGY METHOD 08/18/2024 1:36 PM [facility] Mycoplasma pneumo by PCR Not Detected Not Detected LAB MICROBIOLOGY METHOD 08/18/2024 1:36 PM [facility] Chlamydia pneumoniae Not Detected Not Detected LAB MICROBIOLOGY METHOD 08/18/2024 1:36 PM [facility] SARS COV-2 Not Detected Not Detected LAB MICROBIOLOGY METHOD 08/18/2024 1:36 PM [facility] Swab Both anterior nares / Unknown Non-blood Collection / Unknown 08/18/2024 12:25 PM EST 08/18/2024 12:34 PM [facility] - 08/18/2024 1:36 PM EST Testing was performed using the [employer]ORT[employer] Respiratory Pathogen PCR Assay. All results must [...] MICROBIOLOGY - ENERAL ORDERABLES Performing Organization Address City/[facility]/ZIP Co de Phone Number [facility] [address] [place] [address], [place] [phone] * Culture blood (08/18/2024 12:24 PM EST) Only the most recent of2 resultswithin the time period is included. Pathologist [facility] Culture, Blood No growth at 5 days 08/23/2024 1:01 PM EST [facility] Blood Venous blood specimen / Unknown Venipuncture / Unknown 08/18/2024 12:24 PM EST 08/18/2024 12:34 PM EST Augusto Moctezuma MD LAB MICROBIOLOGY - ENERAL ORDERABLES Performing Organization Address [facility] Co de Phone Number [facility] [address] [place] [address], [place] [phone] * Lactate, with reflex (08/18/2024 12:17 PM EST) [facility] LACTIC ACID 1.2 0.4 - 2.0 mmol/L LAB CHEMISTRY METHOD 08/18/2024 1:03 PM EST [facility] Blood Venous blood specimen / Unknown Venipuncture / Unknown 08/18/2024 12:17 PM EST 08/18/2024 12:33 PM EST Augusto Moctzeuma MD LAB BLOOD ORDERABLES Performing Organization Address City/[facility]/ZIP Co de Phone Number [facility] [address] [place] [address], [place] [phone] * (ABNORMAL) Blood culture pathogens molecular study (08/18/2024 12:17 PM EST) [facility] Escherichia coli Detected (A) Not Detected LAB MICROBIOLOGY METHOD 08/19/2024 6:52 AM [facility] Blood Venous blood specimen / Unknown Venipuncture / Unknown 08/18/2024 12:17 PM EST 08/18/2024 12:32 PM EST Augusto Moctezuma MD LAB MICROBIOLOGY - G ENERAL ORDERABLES Performing Organization Address City/[facility]/ZIP Co de Phone Number [facility] [address] [place] [address], [place] [phone] * Cardiac Enzymes - CPK (08/18/2024 12:17 PM EST) [facility] Total CK 29 22 - 269 unit/L LAB CHEMISTRY METHOD 08/18/2024 1:02 PM [facility] Blood Venous blood specimen / Unknown Venipuncture / Unknown 08/18/2024 12:17 PM EST 08/18/2024 12:33 PM EST Augusto Moctezuma MD LAB BLOOD ORDERABLES [facility] [address] [place] [address], [place] [phone] * (ABNORMAL) Comprehensive metabolic panel (08/18/2024 12:17 PM EST) [facility] Sodium 138 133 - 145 mmol/L LAB CHEMISTRY METHOD 08/18/2024 1:03 PM [facility] Potassium 3.7 3.5 - 5.5 mmol/L LAB CHEMISTRY METHOD 08/18/2024 1:03 PM [facility] Chloride 106 96 - 110 mmol/L LAB CHEMISTRY METHOD 08/18/2024 1:03 PM [facility] CO2 23 21 - 32 mmol/L LAB CHEMISTRY METHOD 08/18/2024 1:03 PM [facility] Anion Gap 9 3 - 11 LAB CHEMISTRY METHOD 08/18/2024 1:03 PM [facility] Glucose 103(H) 70 - 100 mg/dL LAB CHEMISTRY METHOD 08/18/2024 1:03 PM [facility] BUN 26(H) 5 - 25 mg/dL LAB CHEMISTRY METHOD 08/18/2024 1:03 PM [facility] Creatinine 0.68(L) 0.70 - 1.30 mg/dL LAB CHEMISTRY METHOD 08/18/2024 1:03 PM [facility] eGFR 99 >=60 mL/min/1. 73m2 LAB CHEMISTRY METHOD 08/18/2024 1:03 PM [facility] Comment:Calculation based on the??Chronic Kidney Disease Epidemiology Collaboration (CKD-EPI) equation refit??without adjustment for race. BUN/Creatinine Ratio 38.2 LAB CHEMISTRY METHOD 08/18/2024 1:03 PM [facility] Calcium 8.3(L) 8.5 - 10.5 mg/dL LAB CHEMISTRY METHOD 08/18/2024 1:03 PM [facility] AST (SGOT) 35 10 - 42 unit/L LAB CHEMISTRY METHOD 08/18/2024 1:03 PM [facility] ALT (SGPT) 30 10 - 60 unit/L LAB CHEMISTRY METHOD 08/18/2024 1:03 PM [facility] Alkaline Phosphatase 179(H) 42 - 121 unit/L LAB CHEMISTRY METHOD 08/18/2024 1:03 PM [facility] Total Protein 5.6(L) 6.0 - 8.0 g/dL LAB CHEMISTRY METHOD 08/18/2024 1:03 PM [facility] Albumin 2.3(L) 3.2 - 5.0 g/dL LAB CHEMISTRY METHOD 08/18/2024 1:03 PM EST [facility] Total Bilirubin 1.3 0.0 - 1.4 mg/dL LAB CHEMISTRY METHOD 08/18/2024 1:03 PM EST [facility] Blood Venous blood specimen / Unknown Venipuncture / Unknown 08/18/2024 12:17 PM EST 08/18/2024 12:33 PM EST Augusto Moctezuma MD LAB BLOOD ORDERABLES [facility] [address] [place] [address], from Last 3 Months Advance Directives Documents on File Type Date Recorded Patient Receiving Operator Expl anation Advance Directives and Saurabh g [...] currently active code status orders. Care Teams Laborer/Key Man Relationship Specialty Start Date End Date Mauri Dixon NP [address] [facility] P[facility] - General 08/18/23
--- OUTSIDE RECORDS SUMMARY | 2024-10-18 09:05 | XMS_ITS | Clinical Summary ---
Author Organization [facility] Address [address] [place] [address] Care Team Providers Care Foundation Relations Manager Name Role Phone Lopez Tyler MD Primary Care Provider [phone] Social History Tobacco Use Types Packs/Day Years [...] age to complete this topic Care Teams Foundation Relations Manager Relationship Specialty Start Date End Date Lopez Tyler MD [address] [place] [address] [id number] PCP - General 08/12/14
== END 2024-10-15 08:43 | disposition home or self-care (01) ==
LOC: HO.HOSX 08:42
PROVIDERS: Visit Provider Physician Assistant
DX: M25.551 Pain in right hip (principal); Z96.641 Presence of right artificial hip joint
CPT/HCPCS: 73502; 99212

== ENCOUNTER 2024-10-15 09:25 | Outpatient (AMB) | payer MEDICARE, SELFPAY ==
--- NOTE | 2024-10-15 09:42 | A.OFFVIS_ITS ---
Intake Visit Reasons: PO- 6wk f/u Rt hip mikey 08/06/24 [place] w xrays Intake Note: Navarro a 69 year old male who presents today for a post operative right hip mikey, DOS 08/06/24 NE. X-rays updated. Patient reports he is doing well, states concerned of weakness in his right leg. He has been transitioned from rehab to an assisted living facility, he believes PT is set up. Allergies No Known Allergies [No Known Allergies*] Allergy (Verified 10/05/24 16:57) Medication List - Last Reconciled 10/15/24 by Sis Mendoza PA-C aspirin 81 mg PO DAILY atorvastatin 40 mg PO DAILY 90 days blood sugar diagnostic As directed blood-glucose meter,continuous (FreeStyle Justina 3 Minerva) As directed blood-glucose sensor (FreeStyle Justina 3 Sensor device) Apply every 14 days As directed cyanocobalamin (vitamin B-12) (Vitamin B-12) 1,000 mcg PO DAILY empagliflozin (Jardiance) 25 mg PO DAILY furosemide 40 mg PO DAILY insulin glargine (Lantus Solostar U-100 Insulin) 33 units subcut DAILY insulin lispro 1 sliding scale dose subcut USEASDIRECTD lisinopril 20 mg PO DAILY metformin 1,000 mg PO BID multivitamin 1 tab PO DAILY pramipexole 0.5 mg PO BEDTIME HPI HPI PO- 6wk f/u Rt hip mikey 08/06/24 [place] w xrays: Details: 69-year-old gentleman presents to the office today for a follow-up 6 weeks status post right hip hemiarthroplasty on August [address] [place]. He was transitioned to assisted living facility. He states he is doing well. He does have home therapy coming to assist him. He does have some weakness on the right side however he continues to work on this. [facility] Medical History (Updated 10/05/24 @ 16:56 [facility]) Sepsis History of chemotherapy Stroke Ulnar neuropathy at elbow Sleep apnea Acute embolic stroke Xerosis cutis CKD (chronic kidney disease) stage 2, GFR 60-89 ml/min Persistent proteinuria Hypertensive nephrosclerosis Elevated alkaline phosphatase level Cataract Fuchs' corneal dystrophy Colon cancer RLS (restless legs syndrome) Obesity (BMI 30.0-34.9) Dyslipidemia Type 2 diabetes mellitus with diabetic polyneuropathy Hypertension Neuropathy Diabetes mellitus Erectile dysfunction Surgical History History of nasal cauterization History of esophagogastroduodenoscopy (EGD) Hx of left cataract extraction Hx of cornea transplant History of colonoscopy (~03/15/19) History of colon resection (~04/20/19) Family History Mother History of pancreatic cancer Father No problems noted. Brother Diabetes Maternal Grandmother Diabetes Social History Household Members: None Housing: Condominium Housing Other:: REHAB Are you a primary home care liaison to a significant other at home: No Do you presently have visiting nurse or other home services: No Alcohol intake: never Comment: currently in rehab and bedbound Patient Tobacco Use Status: Never used Tobacco e-Cigarette/Vaping Use: Never Used Second Hand Smoke Exposure: No Advance Directives Date on File: 04/16/19 service: No Current occupational status: retired Cognitive needs: No Hearing needs: No Vision needs: No Review of Systems Const All systems reviewed & are unremarkable except as noted in HPI and below Physical Exam Extrem Other: Right hip: Incision well healed. No redness or drainage. he has no pain with ROM of hip or hip flexion. Calf supple, nontender. NVI. Results Reviewed Results Reviewed: Xrays were obtained in the office today and personally reviewed by me of the right hip show stable hip prosthesis Assessment & Plan Assessment & Plan (1) History of hemiarthroplasty of right hip: Code(s): Z96.641 - Presence of right artificial hip joint Category: Surgical Plan: He will continue to work with physical therapy for strengthening and gait training exercises. We will continue to increase activities as tolerated and see us back in 6 weeks with new x-rays sooner if needed. Orders: Orders XR hip RT min 2V Today M25.551 - Pain in right hip Coding Level of Care Code Global (88139) Diagnoses History of hemiarthroplasty of right hip Z96.641
--- OUTSIDE RECORDS SUMMARY | 2024-10-15 09:51 | XMS_ITS ---
Author Organization [facility] Address Unknown Medications Medication Dose Frequency Directions Start Date End Lacho e Pramipexole Dihydrochloride Oral Tablet 0.5 MG 1 {tbl} Give 1 tablet by mouth at bedtime for antiparkinson 08/27/2024 10/12/2024 Lantus SoloStar Subcutaneous Solution Pen-injector 100 UNIT/ML 10 24 h Inject 10 unit subcutaneously one time a day for diabetes 08/27/2024 09/26/2024 Insulin Lispro (1 Unit Dial) Subcutaneous Solution Pen-injector 100 UNIT/ML Inject as per slidin g scale: if 100 - 199 = 2 un.; 200 - 299 = 3 un.; 300 - 399 = 4 units; 400 - 499 = 5 un.; 500 - 599 = 6 un, subcutaneously before meals for diabetes 08/26/2024 09/26/2024 metFORMIN HCl Oral Tablet 1000 MG 1 {tbl} 12 h Give 1 tablet by mouth two times a day for diabetes 08/26/2024 10/12/2024 Multivitamin-Minerals Oral Tablet 1 {tbl} 24 h Give 1 tablet by mouth one time a day for supplement 08/27/2024 10/12/2024 Glucose Gel 40 % 1 Give 1 appl ication by mouth every 15 minutes as needed for Blood Sugars less than 60 and conscious, recheck blood sugar in 15-min if blood sugar is less than 60 may repeat x1 and call 08/27/2024 10/12/2024 Glucagon Emergency Kit 1 MG 1 mL Inject 1 ml intramuscularly every 1 hours as needed for Blood Sugars less than 60 and unconscious or unresponsive, and call . 08/27/2024 10/12/2024 Dulcolax Suppository 10 MG 1 Insert 1 suppository rectally as needed for Constipation every 3 days if No Bowel Movement and Milk of Magnesia ineffective 08/30/2024 10/12/2024 Milk of Magnesia Suspension 400 MG/5ML 30 mL Give 30 ml by mout h as needed for Constipation daily 08/30/2024 10/12/2024 Fleet Enema 1 Insert 1 unit rectally as needed for Constipation. Give if no results from laxative suppository. 08/30/2024 09/26/2024 Methylcobalamin Oral Tablet Chewable 500 MCG 2 {tbl} 24 h Give 2 tablet by mouth one time a day for supplement related to UNSPECIFIED PROTEIN-CALORIE MALNUTRITION (E46) 08/31/2024 09/28/2024 Tylenol Oral Tablet 325 MG 3 {tbl} 12 h Give 3 tablet by mouth two times a day for pain management Total Dose 975 mg*DO NOT EXCEED 3 GRAMS per 24 HOURS* 08/31/2024 10/12/2024 Aspirin Oral Tablet Chewable 81 MG 1 {tbl} 24 h Give 1 tablet by mouth one time a day for prophylaxis 09/01/2024 09/26/2024 Melatonin Oral Tablet 5 MG 1 {tbl} Give 1 tablet by mouth at bedtime for sleep aid 09/02/2024 10/12/2024 BD AutoShield Duo Miscellaneous 30G X 5 MM 1 {Applicator } Inject 1 applicator subcutaneously as needed for DM 09/05/2024 10/12/2024 Enoxaparin Sodium Solution 40 MG/0.4ML 40 mg 24 h Inject 40 mg subcutaneously one time a day for prevent blood clotting until 09/18/2024 23:59 09/07/2024 09/19/2024 Jardiance Oral Tablet 25 MG 1 {tbl} 24 h Give 1 tablet by mouth one time a day related to TYPE 2 DIABETES MELLITUS WITH DIABETIC CHRONIC KIDNEY DISEASE (E11.22) 09/11/2024 10/12/2024 Pantoprazole Sodium Oral Tablet Delayed Release 40 MG 1 {tbl} 24 h Give 1 tablet by mouth one time a day related to GASTRO-ESOPHAGEAL REFLUX DISEASE WITHOUT ESOPHAGITIS (K21.9) 09/11/2024 09/26/2024 Lidocaine Patch 4 % Apply to area of discomfort topically in the morning for pain management for 12 hours then remove and remove per schedule 09/11/2024 10/12/2024 Atorvastatin Calcium Oral Tablet 40 MG 1 {tbl} 24 h Give 1 tablet by mouth one time a day related to HYPERLIPIDEMIA, UNSPECIFIED (E78.5) 09/11/2024 09/26/2024 Pioglitazone HCl Oral Tablet 30 MG 1 {tbl} 24 h Give 1 tablet by mouth one time a day related to TYPE 2 DIABETES MELLITUS WITH DIABETIC CHRONIC KIDNEY DISEASE (E11.22) 09/11/2024 09/26/2024 Bethanechol Chloride Oral Tablet 50 MG 1 {tbl} 24 h Give 1 tablet by mouth one time a day related to NEUROMUSCULAR DYSFUNCTION OF BLADDER, UNSPECIFIED (N31.9) 09/11/2024 10/12/2024 Amoxicillin-Pot Clavulanate Oral Tablet 875-125 MG 1 {tbl} 12 h Give 1 tablet by mouth every 12 hours for PENICILLINS, CHEMICALS for 7 Days 09/26/2024 10/03/2024 Furosemide Oral Tablet 40 MG 1 {tbl} 24 h Give 1 tablet by mouth one time a day for DIURETICS 09/26/2024 10/12/2024 Insulin Lispro (1 Unit Dial) Subcutaneous Solution Pen-injector 100 UNIT/ML Inject as per slidin g scale: if 0 - 149 = 0 units; 150 - 199 = 6 units; 200 - 249 = 8 units; 250 - 299 = 10 units; 300 - 349 = 12 units; 350 - 399 = 14 units, subcutaneously before meals for diabetes 09/26/2024 10/05/2024 DAPTOmycin-Sodium Chloride Intravenous Solution 1000-0.9 MG/100ML-% 750 mg Use 750 mg intravenously in the evening for ANTI-INFECTIVE AGENTS - MISC. for 2 Days 09/26/2024 09/28/2024 Lantus SoloStar Subcutaneous Solution Pen-injector 100 UNIT/ML 33 Inject 33 unit subcutaneously at bedtime for diabetes 09/27/2024 09/30/2024 Melatonin Tablet 3 MG 1 {tbl} Give 1 tablet by mouth at bedtime for insomnia 09/28/2024 09/27/2024 Lantus SoloStar Subcutaneous Solution Pen-injector 100 UNIT/ML 28 Inject 28 unit subcutaneously at bedtime for diabetes 10/01/2024 10/08/2024 TraZODone HCl Tablet 50 MG 12.5 mg Give 12.5 mg by mout h every 24 hours as needed for For insomnia 10/01/2024 09/30/2024 TraZODone HCl Tablet 50 MG 0.25 {tbl} Give 0.25 tablet by mouth as needed for difficulty falling/staying asleep/insomnia for 14 Days ONCE DAILY total dose equals 12.5 MG 09/30/2024 10/12/2024 Insulin Lispro (1 Unit Dial) Subcutaneous Solution Pen-injector 100 UNIT/ML Inject as per hiwot g scale: if 0 - 149 = 0 units; 150 - 199 = 4 units; 200 - 249 = 6 units; 250 - 299 = 8 units; 300 - 349 = 10 units; 350 - 399 = 12 units, subcutaneously before meals for diabetes 10/05/2024 10/12/2024 Lantus SoloStar Subcutaneous Solution Pen-injector 100 UNIT/ML 26 Inject 26 unit subcutaneously at bedtime for diabetes 10/09/2024 10/10/2024 Lantus SoloStar Subcutaneous Solution Pen-injector 100 UNIT/ML 22 Inject 22 unit subcutaneously at bedtime for diabetes 10/11/2024 10/11/2024 Lantus SoloStar Subcutaneous Solution Pen-injector 100 UNIT/ML 18 Inject 18 unit subcutaneously at bedtime for diabetes 10/12/2024 10/12/2024 Medications Administered Medication Dose Frequency Status Start Date End Date Pramipexole Dihydrochloride Oral Tablet 0.5 MG 1 {tbl} 10/11/2024 Lantus SoloStar Subcutaneous Solution Pen-injector 100 UNIT/ML 10 24 h Hospitalized 09/15/2024 Insulin Lispro (1 Unit Dial) Subcutaneous Solution Pen-injector 100 UNIT/ML Hospitalized 09/15/2024 metFORMIN HCl Oral Tablet 1000 MG 1 {tbl} 12 h 10/11/2024 Multivitamin-Minerals Oral Tablet 1 {tbl} 24 h 10/11/2024 Glucose Gel 40 % 1 08/27/2024 Glucagon Emergency Kit 1 MG 1 mL 08/27/2024 Dulcolax Suppository 10 MG 1 08/30/2024 Milk of Magnesia Suspension 400 MG/5ML 30 mL 08/30/2024 Fleet Enema 1 08/30/2024 Methylcobalamin Oral Tablet Chewable 500 MCG 2 {tbl} 24 h No Intervention Noted 09/28/2024 Tylenol Oral Tablet 325 MG 3 {tbl} 12 h 10/11/2024 Aspirin Oral Tablet Chewable 81 MG 1 {tbl} 24 h Hospitalized 09/15/2024 Melatonin Oral Tablet 5 MG 1 {tbl} 10/11/2024 BD AutoShield Duo Miscellaneous 30G X 5 MM 1 {Applicator} 09/05/2024 Enoxaparin Sodium Solution 40 MG/0.4ML 40 mg 24 h Hospitalized 09/15/2024 Jardiance Oral Tablet 25 MG 1 {tbl} 24 h 10/11/2024 Pantoprazole Sodium Oral Tablet Delayed Release 40 MG 1 {tbl} 24 h Hospitalized 09/15/2024 Lidocaine Patch 4 % Drug/Efrain atment Refused 10/11/2024 Atorvastatin Calcium Oral Tablet 40 MG 1 {tbl} 24 h Hospitalized 09/15/2024 Pioglitazone HCl Oral Tablet 30 MG 1 {tbl} 24 h Hospitalized 09/15/2024 Bethanechol Chloride Oral Tablet 50 MG 1 {tbl} 24 h 10/11/2024 Amoxicillin-Pot Clavulanate Oral Tablet 875-125 MG 1 {tbl} 12 h 10/03/2024 Furosemide Oral Tablet 40 MG 1 {tbl} 24 h 10/11/2024 Insulin Lispro (1 Unit Dial) Subcutaneous Solution Pen-injector 100 UNIT/ML No Sliding Scale Insulin Needed 10/05/2024 DAPTOmycin-Sodium Chloride Intravenous Solution 1000-0.9 MG/100ML-% 750 mg 09/27/2024 Lantus SoloStar Subcutaneous Solution Pen-injector 100 UNIT/ML 33 09/30/2024 Melatonin Tablet 3 MG 1 {tbl} 09/28/19 Lantus SoloStar Subcutaneous Solution Pen-injector 100 UNIT/ML 10/08/2024 TraZODone HCl Tablet 50 MG 12.5 mg 10/01/2024 TraZODone HCl Tablet 50 MG 0.25 {tbl} 09/30/2024 Insulin Lispro (1 Unit Dial) Subcutaneous Solution Pen-injector 100 UNIT/ML Drug / Treatment Not Administered 10/11/2024 Lantus SoloStar Subcutaneous Solution Pen-injector 100 UNIT/ML 10/10/2024 Lantus SoloStar Subcutaneous Solution Pen-injector 100 UNIT/ML 10/11/2024 Lantus SoloStar Subcutaneous Solution Pen-injector 100 UNIT/ML 18 10/12/2024 Problems Problem Status Start Date End Date SEPSIS, UNSPECIFIED ORGANISM (Primary) (A41.9 - ICD-10 -CM) ACTIVE 09/25/2024 MYOCARDIAL INFARCTION TYPE 2 (I21.A1 - ICD-10-CM) ACTI VE 09/25/2024 ABSCESS OF LIVER (K75.0 - ICD-10-CM) ACTIVE 09/15 OTHER SPECIFIED DISORDERS OF PERITONEUM (K66.8 - ICD-10-CM) ACTIVE 09/27/2024 THROMBOCYTOPENIA, UNSPECIFIED (D69.6 - ICD-10-CM) ACTI VE 09/27/2024 UNSPECIFIED SYSTOLIC (CONGES TIVE) HEART FAILURE (I50.20 - ICD-10-CM) ACTIVE 09/25/2024 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) ACTIVE 08/26/2024 UNSPECIFIED FRACTURE OF RIGH T FEMUR, SUBSEQUENT ENCOUNTER FOR CLOSED FRACTURE WITH ROUTINE HEALING (S72.91XD - ICD-10-CM) ACTIVE 08/11/2024 MALIGNANT NEOPLASM OF COLON, UNSPECIFIED (C18.9 - ICD-10-CM) ACTIVE 08/11/2024 NEUROMUSCULAR DYSFUNCTION OF BLADDER, UNSPECIFIED (N31.9 - ICD-10-CM) ACTIVE 08/11/2024 INFARCTION OF SPLEEN (D73.5 - ICD-10-CM) ACTIVE 08/26/2024 SEVERE SEPSIS WITH SEPTIC SHOCK (R65.21 - ICD-10-CM) A CTIVE 09/25/2024 STREPTOCOCCAL INFECTION, UNS PECIFIED SITE (A49.1 - ICD-10-CM) ACTIVE 09/25/2024 BACTEREMIA (R78.81 - ICD-10-CM) ACTIVE RESTLESS LEGS SYNDROME (G25.81 - ICD-10-CM) ACTIVE 08/26/2024 MUSCLE WASTING AND ATROPHY, NOT ELSEWHERE CLASSIFIED, MULTIPLE SITES (M62.59 - ICD-10-CM) ACTIVE 08/26/2024 CALCULUS OF BILE DUCT WITHOU T CHOLANGITIS OR CHOLECYSTITIS WITH OBSTRUCTION (K80.51 - ICD-10-CM) ACTIVE 08/26/2024 SPLENOMEGALY, NOT ELSEWHERE CLASSIFIED (R16.1 - ICD-10 -CM) ACTIVE 08/26/2024 DEFORMING DORSOPATHY, UNSPECIFIED (M43.9 - ICD-10-CM) ACTIVE 08/26/2024 UNSPECIFIED PROTEIN-CALORIE MALNUTRITION (E46 - ICD-10 -CM) ACTIVE 08/26/2024 OTHER SPECIFIED POLYNEUROPATHIES (G62.89 - ICD-10-CM) ACTIVE 08/11/2024 HYPERTENSIVE CHRONIC KIDNEY DISEASE WITH STAGE 1 THROUGH STAGE 4 CHRONIC KIDNEY DISEASE, OR UNSPECIFIED CHRONIC KIDNEY DISEASE (I12.9 - ICD-10-CM) ACTIVE 08/11/2024 CHRONIC KIDNEY DISEASE, STAGE 2 (MILD) (N18.2 - ICD-10 -CM) ACTIVE 08/11/2024 GASTRO-ESOPHAGEAL REFLUX DIS EASE WITHOUT ESOPHAGITIS (K21.9 - ICD-10-CM) ACTIVE 08/11/2024 ENDOTHELIAL CORNEAL DYSTROPH Y, 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 - ICD-10-CM) ACTIVE 08/11/2024 CEREBRAL INFARCTION, UNSPECIFIED (I63.9 - ICD-10-CM) A CTIVE 08/11/2024 TYPE 2 DIABETES MELLITUS WIT H DIABETIC CHRONIC KIDNEY DISEASE (E11.22 - ICD-10-CM) ACTIVE 08/11/2024 HYPERLIPIDEMIA, UNSPECIFIED (E78.5 - ICD-10-CM) ACTIVE 08/11/2024 Encounters Encounter Performer Performer Role Encounter Diagnoses Location Date Leave - Discharged / Transferred to [facility] 4 04:36 pm EST - 4 11:29 am EST Leave - Discharged / Transferred to [facility] 4 02:48 pm EST - 4 05:00 am EST Leave - Discharged / Transferred to [facility] 4 09:00 pm EST - 4 07:35 pm EST Discharge - Discharged to home or self care - [facility] - Private home/apt. with home health services [facility] 5 09:54 pm EST - 5 11:30 am EST Reason For Referral Hypertension (uncontrolled) Immunizations Vaccine Date (Tetanus, Diphtheria, and Acellular Pert ussis) Tdap 08/22/2020 12:00 am EST (Pneumococcal) PCV20- Conjugate 20-norma t Vaccine (Pneumococcal) PPSV23- Polysaccharide 23 -valent Vaccine 05/12/2018 12:00 am EDT (Influenza) FLUAD - Adjuvanted - High Do se - 65+ 08/02/2024 12:00 am EST (COVID-19) Updated Pfizer Vacc ine 08/02/2024 12:00 am EST Social History Vital Signs Vital Sign Reading Time Taken bloodSugar 74 mg/dL 10/11/2024 08:57 am EST bloodSugar 74 mg/dL 10/11/2024 07:58 am EST bloodSugar 117 mg/dL 10/10/2024 08:05 pm EST bloodSugar 86 mg/dL 10/10/2024 04:53 pm EST bloodSugar 86 mg/dL 10/10/2024 04:53 pm EST bloodSugar 81 mg/dL 10/10/2024 11:56 am EST bloodSugar 81 mg/dL 10/10/2024 11:55 am EST bloodSugar 87 mg/dL 10/10/2024 08:30 am EST bloodSugar 87 mg/dL 10/10/2024 08:30 am EST bloodSugar 119 mg/dL 10/09/2024 08:07 pm EST bloodSugar 141 mg/dL 10/09/2024 04:23 pm EST bloodSugar 141 mg/dL 10/09/2024 04:23 pm EST bloodSugar 90 mg/dL 10/09/2024 12:07 pm EST bloodSugar 90 mg/dL 10/09/2024 12:06 pm EST oxygenSaturation 93 % 10/11/2024 06:4 6 am EST oxygenSaturation 97 % 10/10/2024 08:0 4 pm EST oxygenSaturation 96 % 10/10/2024 09:2 2 am EST oxygenSaturation 91 % 10/10/2024 06:4 3 am EST oxygenSaturation 97 % 10/09/2024 05:3 6 pm EST oxygenSaturation 97 % 10/09/2024 12:3 0 pm EST heartrate 51 /min 10/11/2024 06:46 am EST heartrate 78 /min 10/10/2024 08:04 pm EST heartrate 93 /min 10/10/2024 09:22 am EST heartrate 91 /min 10/10/2024 06:43 am EST heartrate 95 /min 10/09/2024 05:36 pm EST heartrate 92 /min 10/09/2024 12:30 pm EST temperature 97.3 [degF] 10/11/2024 06:46 am EST temperature 97.8 [degF] 10/10/2024 08:04 pm EST temperature 97.1 [degF] 10/10/2024 09:22 am EST temperature 97.5 [degF] 10/10/2024 06:43 am EST temperature 97.9 [degF] 10/09/2024 05:36 pm EST temperature 97.1 [degF] 10/09/2024 12:30 pm EST systolicValue 120 mm[Hg] 10/11/2024 06:46 am EST diastolicValue 71 mm[Hg] 10/11/2024 06:46 am EST systolicValue 111 mm[Hg] 10/10/2024 08:04 pm EST diastolicValue 66 mm[Hg] 10/10/2024 08:04 pm EST systolicValue 118 mm[Hg] 10/10/2024 09:22 am EST diastolicValue 78 mm[Hg] 10/10/2024 09:22 am EST systolicValue 128 mm[Hg] 10/10/2024 06:43 am EST diastolicValue 71 mm[Hg] 10/10/2024 06:43 am EST systolicValue 102 mm[Hg] 10/09/2024 05:36 pm EST diastolicValue 72 mm[Hg] 10/09/2024 05:36 pm EST systolicValue 122 mm[Hg] 10/09/2024 12:30 pm EST diastolicValue 71 mm[Hg] 10/09/2024 12:30 pm EST respirations 18 /min 10/11/2024 06:46 am EST respirations 18 /min 10/10/2024 08:04 pm EST respirations 18 /min 10/10/2024 09:22 am EST respirations 18 /min 10/10/2024 06:43 am EST respirations 16 /min 10/09/2024 05:36 pm EST respirations 18 /min 10/09/2024 12:30 pm EST painLevel 0 {score} 10/11/2024 05:26 am EST painLevel 0 {score} 10/10/2024 05:24 pm EST painLevel 0 {score} 10/10/2024 09:21 am EST painLevel 0 {score} 10/10/2024 12:19 am EST painLevel 0 {score} 10/09/2024 05:35 pm EST painLevel 0 {score} 10/09/2024 09:49 am EST
--- OUTSIDE RECORDS SUMMARY | 2024-10-15 09:51 | XMS_ITS | Encounter Summary ---
Author Organization [facility] Address [address] [place] [address] Phone Care Team Providers Care Driver Salesman Name Role Phone Celeblake Mauri MONTEZ Primary Care Provider [phone] Reason for Visit * Reason Comments Med Refill Encounter Details Date Type Department Care Team (Late st Contact Info) Description 03/28/2021 Refill [facility] [address] [place] [address] Vignesh Figueroa MD [address] [facility] [address] [place] [address] Social History Tobacco Use Types [...] on filedocumented in this encounter Care Teams Driver Salesman Relationship Specialty Start Date End Date Mauri Dixon [place] [facility] [place] [address] PCP - General 09/25/20 documented as of this encounter
--- OUTSIDE RECORDS SUMMARY | 2024-10-15 09:51 | XMS_ITS | Continuity of Care Document ---
Author Organization [facility] Address [address] [place] [phone] Phone Care Team Providers Care Secretary Book Keeper Name Role Phone Lisa Costa, Jake Unavailable [...] [facility], [address] [facility] [address], [place], [place], [id number], tel:[phone] [facility] [place] Benign Eyelid Lesion 5 Lisa Joseph[address] [place] [address], [id number] , . tel: [phone] Referring Provider: Funmi Martin, [address] [place] [address], [place], [place], [facility]. tel:[phone] [facility], [address], [id number], tel:[phone] [facility] [place] Benign Eyelid Lesion 5 Lisa Joseph. [address] [place] [address], [id number] , . tel: [phone] Referring Provider: Funmi Martin, [address] [place] [address], [place], [address]. tel:[phone] [facility], [address] [place] [address], [id number], tel:[phone] [facility] [place] Benign Eyelid LesionBlepharitis 5 Lisa Joseph. [address] [place] [address], [id number] , . tel: [phone] Referring Provider: Funmi Martin, [address] [place] [address], [facility]. tel:[phone] Family History Family Member Type Diagnosis Age At Onset Maternal grandfather Problem (finding) Diabetes mellit Mother Problem (finding) cancer Brother Problem (finding) Diabetes mellitus Payers Payer name Insurance type Covered democrat ID Authoriza tianthony(s) BCBS [facility] Blue Shield [id number] Social History Type Description Quantity Date Captured [...]
--- OUTSIDE RECORDS SUMMARY | 2024-10-15 09:51 | XMS_ITS | Clinical Summary ---
Author Organization [facility] Address [address] [place] [address] Care Team Providers Care City Recorder Name Role Phone Lopez Tyler MD Primary Care Provider [phone] Social History Tobacco Use Types Packs/Day Years [...] age to complete this topic Care Teams City Recorder Relationship Specialty Start Date End Date Lopez Tyler MD [address] [place] [phone] PCP - General 08/12/14
--- OUTSIDE RECORDS SUMMARY | 2024-10-15 09:51 | XMS_ITS | Clinical Summary ---
Author Organization [facility] Facility Address [address] [place] [address] Care Team Providers Care Log Peeler Name Role Phone Mauri Dixon NP Primary Care Provider [phone] Allergies No known active allergies Medications pramipexole [...] Most Recently Relevant to Health Maintenance Insurance [facility] MEDICARE [facility] MEDICARE Care Teams Log Peeler Relationship Specialty Start Date End Date Mauri Dixon NP [address] [facility] [place] [address] PCP - General 09/25/20
--- OUTSIDE RECORDS SUMMARY | 2024-10-15 09:51 | XMS_ITS | Clinical Summary ---
Author Organization [facility] Address [address] [place] [address] Phone Care Team Providers Care Air Value Tester Name Role Phone Juan ManuelkoryMauri NP Primary Care Provider + [phone] Allergies No known active allergies Medications Medication [...] - 08/19/2024 2:27 PM EST Hospital Encounter [facility] Emergency [address] [place] [address] Augusto Moctezuma MD Bell, Alistair [...] - 100 mg/dL 08/19/2024 12:22 PM EST [facility] ([facility]) [facility] Blood Capillary blood specimen / Unknown 08/19/2024 12:21 PM EST 08/19/2024 12:23 PM EST Augusto Moctezuma MD LAB POINT OF CARE TE ST DOCKED DEVICE UNSOLICITED RESULTS [facility] LAB [address] [place] [address], [place] [phone] * US Abdomen Limited (08/19/2024 11:45 AM [...] Signed Date: 08/19/2024 12:11 ET Workstation ID: [id number] Transcribed By: Self Edit Transcribed Date: 08/19/2024 [...] Signed Date: 08/19/2024 12:11 ET Workstation ID: [id number] Transcribed By: Self Edit Transcribed Date: 08/19/2024 12:07 ET Cindy Carlson NP IMG US PROCEDURES * (ABNORMAL) CBC auto differential (08/19/2024 6:01 AM EST) Only the most recent of2 resultswithin the time period is included. WBC 6.3 4.8 - 10.8 K/mcL LAB HEMETOLOGY METHOD 08/19/2024 7:50 AM [facility] RBC 4.30(L) 4.50 - 5.50 M/mcL LAB HEMETOLOGY METHOD 08/19/2024 7:50 AM [facility] Hemoglobin 12.7(L) 13.5 - 17.5 g/dL LAB HEMETOLOGY METHOD 08/19/2024 7:50 AM [facility] Hematocrit 40.6(L) 42.0 - 54.0 % LAB HEMETOLOGY METHOD 08/19/2024 7:50 AM [facility] MCV 94.6 79.0 - 98.0 FL LAB HEMETOLOGY METHOD 08/19/2024 7:50 AM [facility] MCH 29.6 27.0 - 32.0 pcg LAB HEMETOLOGY METHOD 08/19/2024 7:50 AM [facility] MCHC 31.3(L) 32.0 - 37.0 g/dL LAB HEMETOLOGY METHOD 08/19/2024 7:50 AM [facility] RDW 16.3(H) 11.0 - 15.0 % LAB HEMETOLOGY METHOD 08/19/2024 7:50 AM [facility] Platelets 08/19/2024 7:50 AM [facility] Comment:Not measured. Unable to quantitate due to platelet clumping MPV 12.6(H) 7.0 - 11.0 FL LAB HEMETOLOGY METHOD 08/19/2024 7:50 AM [facility] NRBC 0.0 <1.0 % LAB HEMETOLOGY METHOD 08/19/2024 7:50 AM [facility] NRBC Absolute 0.00 <0.10 K/mcL LAB HEMETOLOGY METHOD 08/19/2024 7:50 AM [facility] Neutrophils Relative 79.2 % LAB HEMETOLOGY METHOD 08/19/2024 7:50 AM [facility] Lymphocytes Relative 10.1 % LAB HEMETOLOGY METHOD 08/19/2024 7:50 AM [facility] Monocytes Relative 8.3 % LAB HEMETOLOGY METHOD 08/19/2024 7:50 AM [facility] Eosinophils Relative 1.6 % LAB HEMETOLOGY METHOD 08/19/2024 7:50 AM [facility] Basophils Relative 0.5 % LAB HEMETOLOGY METHOD 08/19/2024 7:50 AM [facility] Immature Granulocytes Relative 0.3 % LAB HEMETOLOGY METHOD 08/19/2024 7:50 AM [facility] Neutrophils Absolute 4.95 1.50 - 7.00 K/mcL LAB HEMETOLOGY METHOD 08/19/2024 7:50 AM EST [facility] Lymphocytes Absolute 0.63(L) 1.00 - 5.00 K/mcL LAB HEMETOLOGY METHOD 08/19/2024 7:50 AM [facility] Monocytes Absolute 0.52 0.20 - 1.00 K/mcL LAB HEMETOLOGY METHOD 08/19/2024 7:50 AM EST [facility] LAB Eosinophils Absolute 0.10 0.00 - 0.50 K/mcL LAB HEMETOLOGY METHOD 08/19/2024 7:50 AM EST [facility] Basophils Absolute 0.03 0.00 - 0.20 K/mcL LAB HEMETOLOGY METHOD 08/19/2024 7:50 AM [facility] Immature Granulocytes Absolute 0.02 0.00 - 0.03 K/mcL LAB HEMETOLOGY METHOD 08/19/2024 7:50 AM [facility] Blood Venous blood specimen / Unknown 08/19/2024 6:01 AM EST 08/19/2024 6:36 AM EST Augusto Moctezuma MD LAB BLOOD ORDERABLES [facility] [address] [place] [address], * (ABNORMAL) Sedimentation rate (08/19/2024 6:01 AM EST) Only the most recent of2 resultswithin the time period is included. Sed Rate 99(H) 0 - 20 mm/hr LAB HEMETOLOGY METHOD 08/19/2024 7:01 AM EST [facility] Blood Venous blood specimen / Unknown 08/19/2024 6:01 AM EST 08/19/2024 6:36 AM EST Magen DESAI LAB BLOOD ORDERABLES [facility] [address] [place] [address], * (ABNORMAL) Bilirubin, total and direct (08/19/2024 6:01 AM EST) Total Bilirubin 1.2 0.0 - 1.4 mg/dL LAB CHEMISTRY METHOD 08/19/2024 8:58 AM EST [facility] Bilirubin, Direct 0.7(H) 0.0 - 0.3 mg/dL LAB CHEMISTRY METHOD 08/19/2024 8:58 AM [facility] Bilirubin, Indirect 0.5 0.0 - 1.1 mg/dL LAB CHEMISTRY METHOD 08/19/2024 8:58 AM [facility] Blood Venous blood specimen / Unknown 08/19/2024 6:01 AM EST 08/19/2024 6:36 AM EST Cindy Carlson NP LAB BLOOD ORDERABLES [facility] [address] [place] [address], * (ABNORMAL) Hepatic function panel (08/19/2024 6:01 AM EST) Total Protein 6.2 6.0 - 8.0 g/dL LAB CHEMISTRY METHOD 08/19/2024 8:58 AM [facility] Albumin 2.4(L) 3.2 - 5.0 g/dL LAB CHEMISTRY METHOD 08/19/2024 8:58 AM [facility] Total Bilirubin 1.2 0.0 - 1.4 mg/dL LAB CHEMISTRY METHOD 08/19/2024 8:58 AM [facility] Bilirubin, Direct 0.7(H) 0.0 - 0.3 mg/dL LAB CHEMISTRY METHOD 08/19/2024 8:58 AM EST [facility] Bilirubin, Indirect 0.5 0.0 - 1.1 mg/dL LAB CHEMISTRY METHOD 08/19/2024 8:58 AM [facility] ALT (SGPT) 33 10 - 60 unit/L LAB CHEMISTRY METHOD 08/19/2024 8:58 AM [facility] AST (SGOT) 41 10 - 42 unit/L LAB CHEMISTRY METHOD 08/19/2024 8:58 AM [facility] Alkaline Phosphatase 207(H) 42 - 121 unit/L LAB CHEMISTRY METHOD 08/19/2024 8:58 AM [facility] Blood Venous blood specimen / Unknown 08/19/2024 6:01 AM EST 08/19/2024 6:36 AM EST Cindy Carlson NP LAB BLOOD ORDERABLES [facility] [address] [place] [address], * (ABNORMAL) Basic metabolic panel (08/19/2024 6:01 AM EST) Sodium 136 133 - 145 mmol/L LAB CHEMISTRY METHOD 08/19/2024 7:08 AM [facility] Potassium 4.1 3.5 - 5.5 mmol/L LAB CHEMISTRY METHOD 08/19/2024 7:08 AM [facility] Chloride 104 96 - 110 mmol/L LAB CHEMISTRY METHOD 08/19/2024 7:08 AM [facility] CO2 24 21 - 32 mmol/L LAB CHEMISTRY METHOD 08/19/2024 7:08 AM [facility] Anion Gap 8 3 - 11 LAB CHEMISTRY METHOD 08/19/2024 7:08 AM [facility] Glucose 107(H) 70 - 100 mg/dL LAB CHEMISTRY METHOD 08/19/2024 7:08 AM [facility] BUN 21 5 - 25 mg/dL LAB CHEMISTRY METHOD 08/19/2024 7:08 AM [facility] Creatinine 0.62(L) 0.70 - 1.30 mg/dL LAB CHEMISTRY METHOD 08/19/2024 7:08 AM [facility] eGFR 102 >=60 mL/min/1. 73m2 LAB CHEMISTRY METHOD 08/19/2024 7:08 AM [facility] Comment:Calculation based on the??Chronic Kidney Disease Epidemiology Collaboration (CKD-EPI) equation refit??without adjustment for race. BUN/Creatinine Ratio 33.9 LAB CHEMISTRY METHOD 08/19/2024 7:08 AM [facility] Calcium 8.7 8.5 - 10.5 mg/dL LAB CHEMISTRY METHOD 08/19/2024 7:08 AM [facility] Blood Venous blood specimen / Unknown 08/19/2024 6:01 AM EST 08/19/2024 6:36 AM EST Augusto Moctezuma MD LAB BLOOD ORDERABLES [facility] [address] [place] [address], * CT Chest/Abdomen/Pelvis w Contrast (08/18/2024 7:14 [...] Signed Date: 08/18/2024 14:37 ET Workstation ID: [id number] Transcribed By: Self Edit Transcribed Date: 08/18/2024 [...] Signed Date: 08/18/2024 14:37 ET Workstation ID: [id number] Transcribed By: Self Edit Transcribed Date: 08/18/2024 14:35 ET Augusto Moctezuma MD IMG XR PROCEDURES * Respiratory virus panel molecular study (08/18/2024 12:25 PM EST) Adenovirus Detection by PCR Not Detected Not Detected LAB MICROBIOLOGY METHOD 08/18/2024 1:36 PM [facility] Influenza A PCR Not Detected Not Detected LAB MICROBIOLOGY METHOD 08/18/2024 1:36 PM [facility] Influenza B PCR Not Detected Not Detected LAB MICROBIOLOGY METHOD 08/18/2024 1:36 PM [facility] Coronavirus 229E Not Detected Not Detected LAB MICROBIOLOGY METHOD 08/18/2024 1:36 PM [facility] Coronavirus HKU1 Not Detected Not Detected LAB MICROBIOLOGY METHOD 08/18/2024 1:36 PM [facility] Coronavirus OC43 Not Detected Not Detected LAB MICROBIOLOGY METHOD 08/18/2024 1:36 PM [facility] Coronavirus NL63 Not Detected Not Detected LAB MICROBIOLOGY METHOD 08/18/2024 1:36 PM [facility] Parainfluenza Virus 1 Not Detected Not Detected LAB MICROBIOLOGY METHOD 08/18/2024 1:36 PM [facility] Parainfluenza Virus 2 Not Detected Not Detected LAB MICROBIOLOGY METHOD 08/18/2024 1:36 PM [facility] Parainfluenza Virus 3 Not Detected Not Detected LAB MICROBIOLOGY METHOD 08/18/2024 1:36 PM [facility] Parainfluenza Virus 4 Not Detected Not Detected LAB MICROBIOLOGY METHOD 08/18/2024 1:36 PM [facility] RSV PCR Not Detected Not Detected LAB MICROBIOLOGY METHOD 08/18/2024 1:36 PM [facility] Human Metapneumovirus A and B Not Detected Not Detected LAB MICROBIOLOGY METHOD 08/18/2024 1:36 PM [facility] Rhinovirus/Entero virus Not Detected Not Detected LAB MICROBIOLOGY METHOD 08/18/2024 1:36 PM [facility] Bordetella pertussis Not Detected Not Detected LAB MICROBIOLOGY METHOD 08/18/2024 1:36 PM [facility] Bordetella parapertussis Not Detected Not Detected LAB MICROBIOLOGY METHOD 08/18/2024 1:36 PM [facility] Mycoplasma pneumo by PCR Not Detected Not Detected LAB MICROBIOLOGY METHOD 08/18/2024 1:36 PM [facility] Chlamydia pneumoniae Not Detected Not Detected LAB MICROBIOLOGY METHOD 08/18/2024 1:36 PM [facility] SARS COV-2 Not Detected Not Detected LAB MICROBIOLOGY METHOD 08/18/2024 1:36 PM [facility] Swab Both anterior nares / Unknown Non-blood Collection / Unknown 08/18/2024 12:25 PM EST 08/18/2024 12:34 PM [facility] - 08/18/2024 1:36 PM EST Testing was performed using the Spyrae Respiratory Pathogen PCR Assay. All results must [...] MICROBIOLOGY - ENERAL ORDERABLES Performing Organization Address City/[facility]/ZIP Co de Phone Number [facility] [address] [place] [address], [place] [phone] * Culture blood (08/18/2024 12:24 PM EST) Only the most recent of2 resultswithin the time period is included. Pathologist [facility] Culture, Blood No growth at 5 days 08/23/2024 1:01 PM EST [facility] Blood Venous blood specimen / Unknown Venipuncture / Unknown 08/18/2024 12:24 PM EST 08/18/2024 12:34 PM EST Augusto Moctezuma MD LAB MICROBIOLOGY - ENERAL ORDERABLES Performing Organization Address [facility] Co de Phone Number [facility] [address] [place] [address], [place] [phone] * Lactate, with reflex (08/18/2024 12:17 PM EST) [facility] LACTIC ACID 1.2 0.4 - 2.0 mmol/L LAB CHEMISTRY METHOD 08/18/2024 1:03 PM EST [facility] LAB Blood Venous blood specimen / Unknown Venipuncture / Unknown 08/18/2024 12:17 PM EST 08/18/2024 12:33 PM EST Augusto Moctezuma MD LAB BLOOD ORDERABLES Performing Organization Address City/[facility]/ZIP Co de Phone Number [facility] [address] [place] [address], [place] [phone] * (ABNORMAL) Blood culture pathogens molecular study (08/18/2024 12:17 PM EST) [facility] Escherichia coli Detected (A) Not Detected LAB MICROBIOLOGY METHOD 08/19/2024 6:52 AM [facility] Blood Venous blood specimen / Unknown Venipuncture / Unknown 08/18/2024 12:17 PM EST 08/18/2024 12:32 PM EST Augusto Moctezuma MD LAB MICROBIOLOGY - G ENERAL ORDERABLES Performing Organization Address City/[facility]/ZIP Co de Phone Number [facility] [address] [place] [address], [place] [phone] * Cardiac Enzymes - CPK (08/18/2024 12:17 PM EST) [facility] Total CK 29 22 - 269 unit/L LAB CHEMISTRY METHOD 08/18/2024 1:02 PM [facility] Blood Venous blood specimen / Unknown Venipuncture / Unknown 08/18/2024 12:17 PM EST 08/18/2024 12:33 PM EST Augusto Moctezuma MD LAB BLOOD ORDERABLES [facility] [address] [place] [address], [place] [phone] * (ABNORMAL) Comprehensive metabolic panel (08/18/2024 12:17 PM EST) [facility] Sodium 138 133 - 145 mmol/L LAB CHEMISTRY METHOD 08/18/2024 1:03 PM [facility] Potassium 3.7 3.5 - 5.5 mmol/L LAB CHEMISTRY METHOD 08/18/2024 1:03 PM [facility] Chloride 106 96 - 110 mmol/L LAB CHEMISTRY METHOD 08/18/2024 1:03 PM [facility] CO2 23 21 - 32 mmol/L LAB CHEMISTRY METHOD 08/18/2024 1:03 PM [facility] Anion Gap 9 3 - 11 LAB CHEMISTRY METHOD 08/18/2024 1:03 PM [facility] Glucose 103(H) 70 - 100 mg/dL LAB CHEMISTRY METHOD 08/18/2024 1:03 PM [facility] BUN 26(H) 5 - 25 mg/dL LAB CHEMISTRY METHOD 08/18/2024 1:03 PM [facility] Creatinine 0.68(L) 0.70 - 1.30 mg/dL LAB CHEMISTRY METHOD 08/18/2024 1:03 PM [facility] eGFR 99 >=60 mL/min/1. 73m2 LAB CHEMISTRY METHOD 08/18/2024 1:03 PM [facility] Comment:Calculation based on the??Chronic Kidney Disease Epidemiology Collaboration (CKD-EPI) equation refit??without adjustment for race. BUN/Creatinine Ratio 38.2 LAB CHEMISTRY METHOD 08/18/2024 1:03 PM [facility] Calcium 8.3(L) 8.5 - 10.5 mg/dL LAB CHEMISTRY METHOD 08/18/2024 1:03 PM [facility] AST (SGOT) 35 10 - 42 unit/L LAB CHEMISTRY METHOD 08/18/2024 1:03 PM [facility] ALT (SGPT) 30 10 - 60 unit/L LAB CHEMISTRY METHOD 08/18/2024 1:03 PM [facility] Alkaline Phosphatase 179(H) 42 - 121 unit/L LAB CHEMISTRY METHOD 08/18/2024 1:03 PM [facility] Total Protein 5.6(L) 6.0 - 8.0 g/dL LAB CHEMISTRY METHOD 08/18/2024 1:03 PM [facility] Albumin 2.3(L) 3.2 - 5.0 g/dL LAB CHEMISTRY METHOD 08/18/2024 1:03 PM EST [facility] Total Bilirubin 1.3 0.0 - 1.4 mg/dL LAB CHEMISTRY METHOD 08/18/2024 1:03 PM EST [facility] Blood Venous blood specimen / Unknown Venipuncture / Unknown 08/18/2024 12:17 PM EST 08/18/2024 12:33 PM EST Augusto Moctezuma MD LAB BLOOD ORDERABLES [facility] [address] [place] [address], from Last 3 Months Advance Directives Documents on File Type Date Recorded 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 Care Teams Air Value Tester Relationship Specialty Start Date End Date Mauri Dixon NP [address] [facility] PCP - General 08/18/23
--- OUTSIDE RECORDS SUMMARY | 2024-10-15 09:51 | XMS_ITS | Clinical Summary ---
Author Organization [facility] Address [address] [place] [address] Care Team Providers Care Heat Curer Name Role Phone Lopez Tyler Primary Care [...] Zoster (Zostavax) Discontinued Procedures * Due to [employer] law, this organization might not be sharing [...] to Health Maintenance Results * Due to [place] [employer] law, this organization might not be sharing [...] 6:30 PM EST Frozen Specimen already at [facility]. Testing Performed at: [facility], [address] [place] [address], , Flat Finisher: Mai Fletcher MD CLPOL#[id number] 2:54PM by Lopez Tyler: ??Letter mailed. Lopez Tyler LABORATORY Final Result Performing Organization Address [facility] de Phone Number PHCT CONVERSIONS * [...] 6:39 PM EST Frozen Specimen already at [facility]. FASTING: NO Fasting reference interval. ??[employer] Lipid testing results require a 12 hour fasting specimen. ??Use caution when interpreting non-fasting cholesterol and triglyceride results. Testing Performed at: [facility], [address] [place] [id number], , Flat Finisher: Mai Fletcher MD CLPOL#[id number] 2:54PM by Lopez Tyler: ??Letter mailed. Lopez Tyler LABORATORY Final Result Performing Organization Address [facility] Co de Phone Number PHCT CONVERSIONS [...] 6:48 PM EST Frozen Specimen already at [facility]. FASTING: NO Testing Performed at: [facility], [address] [place] [id number], , Flat Finisher: Mai Fletcher MD CLPOL#[id number] 2:54PM by Lopez Tyler: ??Letter mailed. us Lopez Tyler LABORATORY Final Result PHCT CONVERSIONS from Last 3 Months or Most Recently Relevant to Health Maintenance Care Teams Heat Curer Relationship Specialty Start Date End Date Lopez Tyler PCP - General 04/21/23
--- OUTSIDE RECORDS SUMMARY | 2024-10-15 09:51 | XMS_ITS | Clinical Summary ---
Author Organization [address] Address [address] [place] [address] Care Team Providers Care Paraeducator Name Role Phone Lopez Tyler MD Primary Care Provider + [phone] Medications insulin lispro (HUMALOG) 100 unit/mL vial [...] 136 - 145 mmol/L 09/04/2016 2:45 PM [facility] Potassium 4.4 3.5 - 5.1 mmol/L 09/04/2016 2:45 PM [facility] Comment:Slightly Hemolyzed. Chloride 105 95 - 115 mmol/L 09/04/2016 2:45 PM [facility] CO2 20(L) 21 - 32 mmol/L 09/04/2016 2:45 PM [facility] Anion Gap 12 5 - 18 09/04/2016 2:45 PM [facility] Glucose 84 70 - 100 mg/dL 09/04/2016 2:45 PM [facility] BUN 26(H) 8 - 25 mg/dL 09/04/2016 2:45 PM [facility] Creatinine 1.03 0.50 - 1.30 mg/dL 09/04/2016 2:45 PM [facility] Calcium 9.0 8.4 - 10.3 mg/dL 09/04/2016 2:45 PM [facility] BUN/Creatinine Ratio 25.2(H) 8.0 - 25.0 09/04/2016 2:45 PM [facility] Total Protein 7.5 6.4 - 8.2 g/dL 09/04/2016 2:45 PM [facility] Albumin 3.8 3.4 - 5.0 g/dL 09/04/2016 2:45 PM [facility] Total Bilirubin 0.4 0.0 - 1.0 mg/dL 09/04/2016 2:45 PM [facility] Alkaline Phosphatase 78 20 - 135 U/L 09/04/2016 2:45 PM [facility] Alanine Aminotransferase (ALT) 35 12 - 78 U/L 09/04/2016 2:45 PM [facility] Aspartate Aminotransferase (AST) 94(H) 5 - 37 U/L 09/04/2016 2:45 PM [facility] Globulin 3.7 g/dL 09/04/2016 2:45 PM [facility] A/G Ratio 1.0 09/04/2016 2:45 PM [facility] AST/ALT Ratio 2.7 09/04/2016 2:45 PM [facility] eGFR (Afr Amer) >60 >60 mL/min/1. 73m2 09/04/2016 2:45 PM [facility] Comment: Values under 60mL/min/1.73m2 may indicate CKD if noted for ?? more than 3 months. eGFR is only valid if creatinine is at steady state. eGFR (NON -Mexican) >60 >60 mL/min/1. 73m2 09/04/2016 2:45 PM [facility] Comment: Values under 60mL/min/1.73m2 may indicate CKD if noted for ?? more than 3 months. eGFR is only valid if creatinine is at steady state. Osmolality Calculation 278 275 - 295 mOsm/kg 09/04/2016 2:45 PM [facility] Blood specimen (specimen) Venipuncture / Unknown 09/04/2016 2:01 PM EST 09/04/2016 1:58 PM EST us Mauri Plasencia MD LAB BLOOD ORDERABLES Final Resul t [facility] [address] [place] [id number], [facility] [phone] from Last 3 Months or Most Recently Relevant to Health Maintenance Insurance [employer] Care Teams Paraeducator Relationship Specialty Start Date End Date Lopez Tyler MD PCP - General Family Medicine 09/04/16
== END 2024-10-15 10:24 | disposition home or self-care (01) ==
PROVIDERS: PCP Nurse Practitioner Family; Visit Provider Physician Assistant
DX: Z96.641 Presence of right artificial hip joint (principal)
CPT/HCPCS: 99024

== ENCOUNTER → 2024-10-15 09:29 | Outpatient (BNV) | payer MEDICARE, SELFPAY | PROVIDERS: Visit Provider Radiology Diagnostic Radiology | DX: M25.551 Pain in right hip (principal); Z96.641 Presence of right artificial hip joint | CPT/HCPCS: 73502 ==

== ENCOUNTER → 2024-11-24 15:31 | Outpatient (BNVA) | payer MEDICARE, SELFPAY | PROVIDERS: PCP Nurse Practitioner Family | DX: R33.9 Retention of urine, unspecified (principal) | CPT/HCPCS: 51798 ==

== ENCOUNTER 2024-11-29 14:20 | Emergency (ER) | payer MEDICARE, SELFPAY ==
--- NOTE | ~2024-11-29 | CT_ITS ---
EXAMINATION: CT HEAD WITHOUT CONTRAST CLINICAL INFORMATION: trauma COMPARISON: July 12, 2024. TECHNIQUE: Contiguous axial imaging was performed from the skull base to vertex without intravenous administration of contrast. This CT examination was performed using dose optimization techniques as appropriate, variously including the following: *Automated exposure control *Adjustment of mA and/or kV according to patient size (this includes techniques or standardized protocols for targeted exams where dose is matched to indication/reason for exam; i.e. extremities or head) *Use of iterative reconstruction technique DLP: 1718 mGy-cm FINDINGS: Limited by patient's motion artifact. The bony calvarium is intact. The skull base is grossly intact. No acute intracranial hemorrhage, mass effect, midline shift, hydrocephalus or herniation. Barnett-white matter differentiation is normal. Bilateral multifocal patchy deep periventricular white matter hypodensities. Prominence of the extra-axial CSF spaces, cerebral sulci and ventricles. Sellar/suprasellar region demonstrated no gross masses or hemorrhage. Calcified plaques in the cavernous supraclinoid segments both ICAs and the 3/V4 segments of the vertebral arteries. Craniocervical junction is grossly intact. Postsurgical changes in the inferior ethmoids. Mucosal thickening and air-fluid levels in the maxillary sinuses. Tympanic cavities and mastoid air cells are aerated. No gross hematoma in the intraconal or extraconal compartments of the orbits. CT/CT head/brain wo IV con IMPRESSION: No gross acute fracture, bony calvarium or acute intracranial hemorrhage. Electronically signed by: Andre Eckert MD 11/29/2024 04:13 PM EDT
--- NOTE | ~2024-11-29 | CT_ITS ---
EXAMINATION: CT CERVICAL SPINE WITHOUT CONTRAST CLINICAL INFORMATION: Injury. COMPARISON: July 12, 2024. TECHNIQUE: Contiguous axial images through the cervical spine using 3 mm collimation with bone and soft tissue algorithm. Sagittal and coronal reformatted images acquired. This CT examination was performed using dose optimization techniques as appropriate, variously including the following: *Automated exposure control *Adjustment of mA and/or kV according to patient size (this includes techniques or standardized protocols for targeted exams where dose is matched to indication/reason for exam; i.e. extremities or head) *Use of iterative reconstruction technique. DLP: 367.83 mGy centimeter. FINDINGS: Limited by patient's motion. Degenerative changes in the periodontal C1 region. Multilevel marginal osteophyte formation and disc desiccation C4 T1. Multilevel endplate irregularity and sclerosis with decreased intervertebral disc height C5-6, C6-7 C7-T1 and to a lesser extent C4-5. Multilevel facet joint hypertrophy resulting in incomplete ankylosis of C2-3. The alignment between the vertebral bodies and the facet joints is normal. C1 is intact. C2 is intact. C3 is intact. C4 is intact. C5 is intact. C6 is intact. C7 is intact. No gross prevertebral compartment hematoma. Calcified plaques in the the vertebral arteries, the 3/V4 segments. Tympanic cavities and mastoid cells are aerated. Calcified plaques in the cavernous segments both ICAs. Calcified lesions in the nuchal ligament C3 C6 levels. CT/CT cervical spine wo IV con IMPRESSION: Multilevel cervical spondylosis without acute fracture or trauma-related listhesis. Fleischner guidelines were followed. Electronically signed by: Andre Eckert MD 11/29/2024 04:29 PM EDT
--- NOTE | ~2024-11-29 | CT_ITS ---
EXAMINATION: CT FACIAL BONES WITHOUT CONTRAST CLINICAL INFORMATION: Injury. COMPARISON: None available. TECHNIQUE: Contiguous axial images through the maxillofacial bones using 3 mm collimation with bone and soft tissue algorithm. Sagittal and coronal reformatted images acquired. This CT examination was performed using dose optimization techniques as appropriate, variously including the following: *Automated exposure control *Adjustment of mA and/or kV according to patient size (this includes techniques or standardized protocols for targeted exams where dose is matched to indication/reason for exam; i.e. extremities or head) *Use of iterative reconstruction technique. DLP: 401.79 mGy centimeter. FINDINGS: Acute comminuted cortical disruption, nasal bones. Nasal septum and vomer are intact. The orbital rims cortical fissures and orbital apices are intact. The maxilla and pterygoid plates are intact. The mandible is intact. No hematoma, intraconal or extraconal compartments of the orbits. The eyeballs are intact. Retention cysts versus polyp in the left frontal sinus. Postsurgical changes likely bilateral inferior ethmoidectomies and medial wall maxillary antrostomy. Air-fluid levels and mucosal thickening in the maxillary sinuses and mucosal thickening in the ethmoid cells. Tympanic cavities and mastoid air cells are aerated. CT/CT facial bones wo IV con IMPRESSION: Acute comminuted nasal bone fractures. No gross hematoma, retrobulbar. Electronically signed by: Andre Eckert MD 11/29/2024 04:22 PM EDT
[2024-11-29 14:32] VITALS: BP 126/64; PULSE 92; RESP 18; TEMP 37.1; O2SAT 98; BMI 23.5
[2024-11-29] MEDS: Lidocaine HCl 1 % MPF 5 ML VIAL INFILTRATI (14:36)
--- NOTE | 2024-11-29 14:38 | ED_ITS ---
HPI - Fall General Chief Complaint: Fall Stated Complaint: FALL WITH HEAD STRIKE Time Seen by Provider: 11/29/24 14:25 Source: patient Mode of arrival: EMS Limitations: no limitations History of Present Illness HPI Narrative: This is 69 years old male presented from assisted living after a fall at baseline he ambulates with a walker he stated tripped and fell sustaining a laceration of the nose. No LOC MD complaint: fall Onset (ago): hour(s) (1) Fall from: standing Fall witnessed: no Place fall occurred: other (assisting living) Loss of consciousness: none Prolonged down time: no Symptoms prior to fall: none Context: tripped/slipped Location of injury: head and face Severity: moderate Associated symptoms (after fall): headache Related Data Home Medications ?Medication ?Instructions ?Recorded ?Confirmed blood sugar diagnostic #10 ea 07/28/20 11/10/24 multivitamin 1 tab PO DAILY 10/29/23 11/10/24 lisinopril 20 mg tablet 20 mg PO DAILY 07/12/24 11/10/24 cyanocobalamin (vitamin B-12) 500 1,000 mcg PO DAILY 08/30/24 11/10/24 mcg tablet (Vitamin B-12) metformin 1,000 mg tablet 1,000 mg PO BID 08/30/24 11/10/24 pramipexole 0.5 mg tablet 0.5 mg PO BEDTIME 08/30/24 11/10/24 furosemide 40 mg tablet 40 mg PO DAILY 10/05/24 11/10/24 insulin lispro 100 unit/mL 1 sliding scale dose subcut 10/05/24 11/10/24 subcutaneous pen USEASDIRECTD Previous Rx's ?Medication ?Instructions ?Recorded blood-glucose meter,continuous #1 ea 02/27/24 (FreeStyle Justina 3 [place]) blood-glucose sensor (FreeStyle #2 ea 02/27/24 Justina 3 Sensor device) aspirin 81 mg tablet,delayed 81 mg PO DAILY #90 tabs 10/21/24 release atorvastatin 40 mg tablet 40 mg PO DAILY 90 days #90 tabs 10/21/24 pantoprazole 40 mg tablet,delayed 40 mg PO BID #180 tabs 10/21/24 release insulin glargine 100 unit/mL (3 33 unit (0.33 mL) subcut DAILY #30 02/08/25 mL) subcutaneous pen (Lantus mL Solostar U-100 Insulin) bethanechol chloride 50 mg tablet 50 mg PO BID 30 days #60 tabs 11/24/24 tamsulosin 0.4 mg capsule 0.4 mg PO BEDTIME 30 days #30 caps 11/24/24 empagliflozin 25 mg tablet 25 mg PO DAILY #90 tabs 11/26/24 (Jardiance) Allergies Allergy/AdvReac Type Severity Reaction Status Date / Time No Known Allergies Allergy Verified 11/29/24 14:34 [No Known Allergies*] Review of Systems ENT: Reports system reviewed and no additional complaints, except as documented [facility] Past Medical History [facility] Narrative: History of diabetes, history of right hip fracture history of UTI Medical History Sepsis History of chemotherapy Stroke Ulnar neuropathy at elbow Sleep apnea Acute embolic stroke Xerosis cutis CKD (chronic kidney disease) stage 2, GFR 60-89 ml/min Persistent proteinuria Hypertensive nephrosclerosis Elevated alkaline phosphatase level Cataract Fuchs' corneal dystrophy Colon cancer RLS (restless legs syndrome) Obesity (BMI 30.0-34.9) Dyslipidemia Type 2 diabetes mellitus with diabetic polyneuropathy Hypertension Neuropathy Diabetes mellitus Erectile dysfunction Surgical History History of nasal cauterization History of esophagogastroduodenoscopy (EGD) Hx of left cataract extraction Hx of cornea transplant History of colonoscopy (~03/15/19) History of colon resection (~04/20/19) Family History Family History Mother History of pancreatic cancer Father No problems noted. Brother Diabetes Maternal Grandmother Diabetes Social History Social History Household Members: None Housing: Condominium Housing Other:: REHAB Are you a primary career development associate to a significant other at home: No Do you presently have visiting nurse or other home services: No Alcohol intake: never Comment: currently in rehab and bedbound Patient Tobacco Use Status: Never used Tobacco Smoked in Last 30 Days: No e-Cigarette/Vaping Use: Never Used Second Hand Smoke Exposure: No Use of substances other than those prescribed or required for medical reasons: No Advance Directives: Yes Advance Directives on File: Yes Advance Directives Date on File: 07/13/24 Do you have a plan to hurt others: No Plan service: No Current occupational status: retired Cognitive needs: No Hearing needs: No Vision needs: No Physical Exam Vital Signs: Vital Signs: Last Vital Signs Temp 98.2 F 11/29/24 18:14 Pulse 89 11/29/24 18:14 Resp 16 11/29/24 15:22 BP 133/70 11/29/24 18:14 Pulse Ox 98 11/29/24 18:14 O2 Del Method Room Air 11/29/24 18:14 BMI result Body Mass Index 23.5 Not acute distress Const: General: cooperative Nutritional Appearance: average body habitus Orientation/consciousness: patient oriented x3 HEENT: Other: Examination of the nose shows laceration of the bridge of the nose 3 cm Head: Yes normal to inspection General nose exam: Other nasal findings present ( laceration of the bridge of the nose 3 cm) Mouth: Normal oral and palatal mucosa present Neck: Other: On C-collar Neck: Yes normal visual inspection Chest: Chest palpation & inspection: normal inspection of the chest Resp: Effort & Inspection: normal respiratory effort Auscultation: clear to auscultation bilaterally Cardio: Rate: regular rate Rhythm: regular rhythm GI: Inspection: Yes normal to inspection Palpation (GI): Soft to palpation and not firm Percussion: Yes normal to percussion Auscultation: normal bowel sounds Neuro: General: patient oriented x3 Course Reevaluation(s) Reevaluation #1: Able to ambulate without problems with a walker, workup completed head CT C- spine negative he has fracture of the nasal bone. Wound was closed. At this point anticipate discharge to assisted living Time: 18:14 Medications Administered Discontinued Medications Generic Name Dose Route Start Last Admin Trade Name Freq PRN Reason Stop Dose Admin Lidocaine HCl 5 ml 11/29/24 14:28 11/29/24 14:36 Lidocaine Hcl 1 % Mpf 5 Ml Vial INFILTRATI 11/29/24 14:29 5 ml ONCE ONE Administration Procedures Laceration Laceration 1: Site: other (Nose about 3 cm) Size (cm): 3 Description: linear Depth: simple, single layer Local Anesthetic: lidocaine 1% Amount of anesthesia used (mL): 2 Pre-repair: wound explored Skin layer closed with: nylon Size (cm): 5-0 Number of sutures: 4 Technique: simple, interrupted Medical Decision Making Medical Decision Making [facility] Narrative: Patient presented to the emergency department with a chief complaint of fall we will obtain imaging fall was mechanical I do not think we need to do blood work Differential Diagnosis Differential Diagnoses: The differential diagnosis associated with the presentation includes Subdural hematoma/epidural hematoma Admission/Observation Consideration of admission/observation: Escalation of care including admission/observation considered Lab Data [facility] Lab Attestation statement: I reviewed the patient's lab results. Independent Interpretation I performed an independent interpretation of an: CT Scan Radiology Impression Discussion of test interpretation with radiology: I have reviewed the radiologist's reading. Independent Historian Clinical information obtained from an independent historian. History obtained from or confirmed by: EMS Discharge Plan Discharge Clinical Impression: Head injury Qualifiers: Encounter type: initial encounter Qualified Code(s): S09.90XA - Unspecified injury of head, initial encounter Laceration of nose Qualifiers: Encounter type: initial encounter Qualified Code(s): S01.21XA - Laceration without foreign body of nose, initial encounter Fracture of nasal bone Qualifiers: Encounter type: initial encounter Fracture type: closed Qualified Code(s): S02.2XXA - Fracture of nasal bones, initial encounter for closed fracture Patient Disposition: er [facility] Instructions: Laceration (ED), Head Injury (ED) Additional Instructions: Follow-up with your primary care physician stitches out in about 7-10 days Prescriptions: No Action pantoprazole 40 mg tablet,delayed release (DR/EC) 40 mg PO BID Qty: 180 0RF atorvastatin 40 mg tablet 40 mg PO DAILY 90 Days Qty: 90 1RF aspirin 81 mg tablet,delayed release (DR/EC) 81 mg PO DAILY Qty: 90 0RF insulin glargine [Lantus Solostar U-100 Insulin] 100 unit/mL (3 mL) insulin pen 33 unit subcut DAILY Qty: 30 0RF Jardiance 25 mg tablet 25 mg PO DAILY Qty: 90 0RF multivitamin Tablet 1 tab PO DAILY lisinopril 20 mg tablet 20 mg PO DAILY pramipexole 0.5 mg tablet 0.5 mg PO BEDTIME cyanocobalamin (vitamin B-12) [Vitamin B-12] 500 mcg Tablet 1,000 mcg PO DAILY metformin 1,000 mg tablet 1,000 mg PO BID (DME) blood sugar diagnostic Strip See Rx Instructions .ROUTE TID Qty: 10 Rx Instructions: As directed (DME) FreeStyle Justina 3 Sensor Device See Rx Instructions .ROUTE .MEDSUPPLY Qty: 2 11RF Rx Instructions: Apply every 14 days As directed (DME) FreeStyle Justina 3 [place] Misc See Rx Instructions .ROUTE .MEDSUPPLY Qty: 1 0RF Rx Instructions: As directed furosemide 40 mg tablet 40 mg PO DAILY insulin lispro 100 unit/mL insulin pen 1 sliding scale dose subcut USEASDIRECTD bethanechol chloride 50 mg tablet 50 mg PO BID 30 Days Qty: 60 2RF tamsulosin 0.4 mg capsule 0.4 mg PO BEDTIME 30 Days Qty: 30 1RF Referrals: Héctor Knapp [Physician] - 1 week Print Language: [place]
[2024-11-29 15:22] VITALS: BP 147/66; PULSE 98; RESP 16; TEMP 36.8; O2SAT 97
--- NOTE | 2024-11-29 18:12 | PC.NURSE ---
pt with slow but steady gait with walker, states he feels at his baseline
[2024-11-29 18:14] VITALS: BP 133/70; PULSE 89; TEMP 36.8; O2SAT 98
--- NOTE | 2024-11-29 22:36 | PC.NURSE ---
attempted to call nurse to nurse report x2, no answer, gave transport report to ems
[2024-11-29 22:37] VITALS: BP 128/82; PULSE 77; RESP 16; TEMP 36.7; O2SAT 98
== END 2024-11-29 22:39 ==
PROVIDERS: Emergency Provider Emergency Medicine; PCP Nurse Practitioner Family
DX: S01.21XA Laceration without foreign body of nose, initial encounter (principal); R51.9 Headache, unspecified; M54.2 Cervicalgia; W01.0XXA Fall on same level from slipping, tripping and stumbling without subsequent striking against object, initial encounter; Y93.01 Activity, walking, marching and hiking; Y92.099 Unspecified place in other non-institutional residence as the place of occurrence of the external cause; Y99.8 Other external cause status
CPT/HCPCS: 12013; 70450; 70486; 72125; 99284; J2003

== ENCOUNTER → 2024-11-29 14:37 | Outpatient (BNV) | payer MEDICARE, SELFPAY | PROVIDERS: Emergency Provider Emergency Medicine; PCP Nurse Practitioner Family; Visit Provider Radiology Diagnostic Radiology | DX: S09.90XA Unspecified injury of head, initial encounter (principal); S02.2XXA Fracture of nasal bones, initial encounter for closed fracture | CPT/HCPCS: 70450; 70486; 72125 ==

== ENCOUNTER 2024-11-30 12:44 | Emergency (ER) | payer MEDICARE, SELFPAY ==
[2024-11-30 12:52] VITALS: BP 112/56; BP 122/70; PULSE 84; PULSE 93; RESP 18; TEMP 36.7; O2SAT 100; O2SAT 98; BMI 22.4
--- NOTE | 2024-11-30 13:08 | ED.GENADULT ---
HPI - General Adult General Chief complaint: General Medical Stated complaint: PER EMS EXCESSIVE DIARRHEA Time Seen by Provider: 11/30/24 12:49 Source: patient, EMS, RN notes reviewed and old records reviewed Mode of arrival: EMS History of Present Illness ED Provider: Valerie Williamson PA-C HPI narrative: 69-year-old male with a past medical history of CVA, CKD, RLSL, HTN, diabetes, presenting to the ED via EMS from [facility] due to excessive diarrhea x this morning. Patient reports 3 episodes of nonbloody nonmelanotic diarrhea. Denies other complaints including abdominal pain, nausea, vomiting, dysuria /hematuria. Patient was evaluated in our ED yesterday s/p mechanical trip and fall, diagnosed with nasal bone fractures, sutures placed to nasal laceration. denies recent antibiotic use Related Data Home Medications ?Medication ?Instructions ?Recorded ?Confirmed blood sugar diagnostic #10 ea 07/28/20 11/10/24 multivitamin 1 tab PO DAILY 10/29/23 11/10/24 lisinopril 20 mg tablet 20 mg PO DAILY 07/12/24 11/10/24 cyanocobalamin (vitamin B-12) 500 1,000 mcg PO DAILY 08/30/24 11/10/24 mcg tablet (Vitamin B-12) metformin 1,000 mg tablet 1,000 mg PO BID 08/30/24 11/10/24 pramipexole 0.5 mg tablet 0.5 mg PO BEDTIME 08/30/24 11/10/24 furosemide 40 mg tablet 40 mg PO DAILY 10/05/24 11/10/24 insulin lispro 100 unit/mL 1 sliding scale dose subcut 10/05/24 11/10/24 subcutaneous pen USEASDIRECTD Previous Rx's ?Medication ?Instructions ?Recorded blood-glucose meter,continuous #1 ea 02/27/24 (FreeStyle Justina 3 [place]) blood-glucose sensor (FreeStyle #2 ea 02/27/24 Justina 3 Sensor device) aspirin 81 mg tablet,delayed 81 mg PO DAILY #90 tabs 10/21/24 release atorvastatin 40 mg tablet 40 mg PO DAILY 90 days #90 tabs 10/21/24 pantoprazole 40 mg tablet,delayed 40 mg PO BID #180 tabs 10/21/24 release insulin glargine 100 unit/mL (3 33 unit (0.33 mL) subcut DAILY #30 10/23/24 mL) subcutaneous pen (Lantus mL Solostar U-100 Insulin) bethanechol chloride 50 mg tablet 50 mg PO BID 30 days #60 tabs 11/24/24 tamsulosin 0.4 mg capsule 0.4 mg PO BEDTIME 30 days #30 caps 11/24/24 empagliflozin 25 mg tablet 25 mg PO DAILY #90 tabs 11/26/24 (Jardiance) Allergies Allergy/AdvReac Type Severity Reaction Status Date / Time No Known Allergies Allergy Verified 11/30/24 12:55 [No Known Allergies*] Review of Systems Review of Systems: Yes all other systems are reviewed and are negative Constitutional: Constitutional: Reports as per [facility] Past Medical History Attestation statement: The following information was validated with the patient. Source: old records reviewed Medical History Sepsis History of chemotherapy Stroke Ulnar neuropathy at elbow Sleep apnea Acute embolic stroke Xerosis cutis CKD (chronic kidney disease) stage 2, GFR 60-89 ml/min Persistent proteinuria Hypertensive nephrosclerosis Elevated alkaline phosphatase level Cataract Fuchs' corneal dystrophy Colon cancer RLS (restless legs syndrome) Obesity (BMI 30.0-34.9) Dyslipidemia Type 2 diabetes mellitus with diabetic polyneuropathy Hypertension Neuropathy Diabetes mellitus Erectile dysfunction Surgical History History of nasal cauterization History of esophagogastroduodenoscopy (EGD) Hx of left cataract extraction Hx of cornea transplant History of colonoscopy (~03/15/19) History of colon resection (~04/20/19) Family History Family History Mother History of pancreatic cancer Father No problems noted. Brother Diabetes Maternal Grandmother Diabetes Social History Social History Household Members: None Housing: Condominium Housing Other:: REHAB Are you a primary cardiac care unit nurse to a significant other at home: No Do you presently have visiting nurse or other home services: No Alcohol intake: never Comment: currently in rehab and bedbound Patient Tobacco Use Status: Never used Tobacco Smoked in Last 30 Days: No e-Cigarette/Vaping Use: Never Used Second Hand Smoke Exposure: No Use of substances other than those prescribed or required for medical reasons: No Advance Directives: Yes Advance Directives on File: Yes Advance Directives Date on File: 07/13/24 Do you have a plan to hurt others: No Plan service: No Current occupational status: retired Cognitive needs: No Hearing needs: No Vision needs: No Physical Exam ED Vital Signs: Vital Signs - 24 hr 11/30/24 12:52 11/30/24 13:09 11/30/24 17:57 Temperature 98.0 F 98 F 97.9 F Pulse Rate 93 91 90 Respiratory Rate 18 18 16 Blood Pressure 122/70 122/70 117/53 L Pulse Oximetry 100 100 100 Oxygen Delivery Method Room Air Room Air Room Air BMI result Body Mass Index 22.4 Const General: cooperative, healthy appearing and no acute distress Orientation/consciousness: patient oriented x3 Limitations: no limitations HENMT Head: Yes normal to inspection and Yes atraumatic Ears: hearing grossly normal bilaterally General nose exam: Normal external nose present Face and sinus: Yes normal facial exam Eyes General: appearance normal, both eyes and all related structures EOM: EOMs intact bilaterally Neck Neck: Yes normal visual inspection and Yes no meningeal signs Resp Effort & Inspection: normal respiratory effort and no respiratory distress Cardio Rate: regular rate GI Inspection: Yes normal to inspection Palpation (GI): Soft to palpation, nontender, no guarding and not rigid Skin Rashes: no rashes Wounds: no wounds Neuro General: patient oriented x3, tone normal and no meningeal signs Cranial nerves: Yes CN's II-XII intact bilaterally Gait exam (Neuro): Normal gait present Extrem General: Yes normal to inspection Course Course Course Narrative: - acute on chronic leukopenia. 16% bands - viral testing negative - labs hemolyzed, pending repeat 154-- patient without any episodes of diarrhea since ED arrival -1630-- ED care transferred to [facility] pending remaining labs, UA, and stool if patient is able to provide sample Reevaluation(s) Reevaluation #1: Patient received in sign-out at change of shift pending stool studies, urinalysis in re-evaluation. At change of shift I introduced myself to the patient, the patient denies any pain, he was still not had a bowel movement in the emergency department. His abdomen remains nontender, his vital signs remained stable, he is afebrile, 98.6 while I was in the room. He does have a bandemia 16%, however on review of his records his last 4 differentials going back to 2019 all had a bandemia which could be related to his history of colon cancer. I do not believe this is related to sepsis Time: 16:55 Reevaluation #2: patient has not had a substantial bowel movement while in the emergency department. His vital signs have remained stable, he denies complaints. He seems to be low risk for C diff as he has not been any antibiotics since August per his external medication history. The patient will be discharged you may use Imodium for symptomatic treatment of diarrhea Time: 19:03 Medications Administered Discontinued Medications Generic Name Dose Route Start Last Admin Trade Name Freq PRN Reason Stop Dose Admin Sodium Chloride 1,000 mls @ 999 mls/hr 11/30/24 13:15 11/30/24 14:41 Ns IV 11/30/24 14:15 Infused .Q1H1M RADHA Infusion Medical Decision Making Medical Decision Making [facility] Narrative: 69-year-old male with a past medical history of CVA, CKD, RLSL, HTN, diabetes, presenting to the ED via EMS from [facility] due to excessive diarrhea x this morning. On exam vital signs stable, NAD, nontoxic appearing, abdomen soft and nontender. Concern for viral illness / gastroenteritis vs ? C diff. Lower suspicion for acute appendicitis / diverticulitis or other intra-abdominal pathology Plan: Labs, stool studies, UA Please refer to course for remaining clinical decision making, interpretation of labs/imaging results, and discussions with consultants and/or family members. Differential Diagnosis Differential Diagnoses: The differential diagnosis associated with the presentation includes As above Admission/Observation Consideration of admission/observation: Escalation of care including admission/observation considered Lab Data [facility] Lab Attestation statement: I reviewed the patient's lab results. 11/30/24 13:39 11/30/24 15:39 Labs: Lab Results 11/30/24 11/30/24 11/30/24 Range/Units 13:29 13:39 15:39 WBC 2.3 L (4.8-10.8) X10*3/uL RBC 5.14 (4.60-5.80) X10*6/uL Hgb 15.0 (14.0-18.0) g/dl Hct 43.8 (42.0-52.0) % MCV 85.2 (80.0-98.0) fL MCH 29.2 (27.0-33.0) pg MCHC 34.2 (31.0-36.0) g/dl RDW 15.6 (11.0-16.0) % Plt Count 106 L (160-400) X10*3/uL MPV 11.0 (9.4-12.4) fL Immature Gran % (Auto) Cancelled Neut % (Auto) Cancelled Lymph % (Auto) Cancelled [place] % (Auto) Cancelled Eos % (Auto) Cancelled Baso % (Auto) Cancelled Lymph # (Auto) Cancelled [place] # (Auto) Cancelled Eos # (Auto) Cancelled Baso # (Auto) Cancelled Abs Immat Gran (auto) Cancelled Absolute Neuts (auto) Cancelled Absolute Nucleated RBC 0.000 (0.0-0.012) X10*3/uL Nucleated RBC % (auto) 0.0 (0.0-0.2) /100WBC Neutrophils % (Manual) 47 (45-73) % Band Neutrophils % 16 H (3-5) % Lymphocytes % (Manual) 26 (20-40) % Monocytes % (Manual) 5 (2-11) % Eosinophils % (Manual) 4 (0-4) % Basophils % (Manual) 1 (0-2) % Metamyelocytes % 1 % Abs Neuts (Manual) 1.4 L (2.0-8.3) X10*3/uL Lymphocytes # (Manual) 0.6 L (1.2-4.9) X10*3/uL Monocytes # (Manual) 0.1 (0.1-1.2) X10*3/uL Eosinophils # (Manual) 0.1 (0.0-0.4) X10*3/uL Platelet Estimate NORMAL (NORMAL) Plt Morphology Comment NORMAL RBC Morphology NORMAL Sodium 139 (135-145) mmol/L Potassium 4.0 (3.3-5.1) mmol/L Chloride 108 (96-108) mmol/L Carbon Dioxide 23 (22-29) mmol/L Anion Gap 12 (12-20) BUN 15 (9-16) mg/dL Creatinine 0.56 (0.5-1.4) mg/dL Estim Creat Clear Calc 121.3 Estimated GFR > 60 Random Glucose 152 H (60-115) mg/dL Calcium 8.5 (8.4-10.2) mg/dL Magnesium 1.6 (1.6-2.6) mg/dL Total Bilirubin 0.8 (0.0-1.0) mg/dL Direct Bilirubin 0.3 (0.0-0.5) mg/dL AST 25 (5-37) U/L ALT 38 (0-40) U/L Alkaline Phosphatase 250 H (39-117) U/L Total Protein 6.0 L (6.5-8.0) g/dL Albumin 3.3 L (3.5-5.0) g/dL Lipase 4 L (8-78) U/L Influenza Type A (PCR) NEGATIVE (Negative) Influenza Type B (PCR) NEGATIVE (Negative) RSV RNA Qual (PCR) NEGATIVE (Negative) SARS-CoV-2 RNA (RT-PCR) NEGATIVE (Negative) Radiology Impression Discussion of test interpretation with radiology: I have reviewed the radiologist's reading. Independent Historian Clinical information obtained from an independent historian. History obtained from or confirmed by: EMS External Record Review External record reviewed: Inpatient record, Office record, Outpatient record, Prior outpatient labs, Prior outpatient radiology, Primary care record and Outside ED record Tests considered The following testing was considered but not selected: As above Prescription Management I considered prescription management with: Antibiotic Chronic Conditions Patient?s care impacted by: Diabetes and Hypertension Social Determinants Patient?s care significantly limited by Social Determinants of Health including: Other Social Determinant of Health Discharge Plan Discharge Clinical Impression: Diarrhea Patient Disposition: Home, Self-Care Instructions: Acute Diarrhea (ED) Additional Instructions: your workup in the ER today was reassuring. It is not likely that you have C diff colitis you may use Imodium as needed for diarrhea. Hydrate well. Follow-up with your primary doctor, return for new or worsening symptoms Prescriptions: No Action pantoprazole 40 mg tablet,delayed release (DR/EC) 40 mg PO BID Qty: 180 0RF atorvastatin 40 mg tablet 40 mg PO DAILY 90 Days Qty: 90 1RF aspirin 81 mg tablet,delayed release (DR/EC) 81 mg PO DAILY Qty: 90 0RF insulin glargine [Lantus Solostar U-100 Insulin] 100 unit/mL (3 mL) insulin pen 33 unit subcut DAILY Qty: 30 0RF Jardiance 25 mg tablet 25 mg PO DAILY Qty: 90 0RF multivitamin Tablet 1 tab PO DAILY lisinopril 20 mg tablet 20 mg PO DAILY pramipexole 0.5 mg tablet 0.5 mg PO BEDTIME cyanocobalamin (vitamin B-12) [Vitamin B-12] 500 mcg Tablet 1,000 mcg PO DAILY metformin 1,000 mg tablet 1,000 mg PO BID (DME) blood sugar diagnostic Strip See Rx Instructions .ROUTE TID Qty: 10 Rx Instructions: As directed (DME) FreeStyle Justina 3 Sensor Device See Rx Instructions .ROUTE .MEDSUPPLY Qty: 2 11RF Rx Instructions: Apply every 14 days As directed (DME) FreeStyle Justina 3 [place] Misc See Rx Instructions .ROUTE .MEDSUPPLY Qty: 1 0RF Rx Instructions: As directed furosemide 40 mg tablet 40 mg PO DAILY insulin lispro 100 unit/mL insulin pen 1 sliding scale dose subcut USEASDIRECTD bethanechol chloride 50 mg tablet 50 mg PO BID 30 Days Qty: 60 2RF tamsulosin 0.4 mg capsule 0.4 mg PO BEDTIME 30 Days Qty: 30 1RF Print Language: Turkmen
[2024-11-30 13:09] VITALS: BP 122/70; PULSE 91; RESP 18; TEMP 36.6; O2SAT 100
[2024-11-30] MEDS: 0.9 % Sodium Chloride 1,000 ML 999 ML IV (13:40)
--- NOTE | 2024-11-30 13:44 | PC.NURSE ---
pt difficult stick- IV inserted, labs drawn, swab obtained, ivf hung per order, vss, rr equal/non labored, call fenton within reach, plan of care ongoing
[2024-11-30 13:45] LABS: Hematocrit 43.8 % (42.0-52.0); Mean Corpuscular HGB Conc 34.2 g/dl (31.0-36.0); Mean Corpuscular Hemoglobin 29.2 pg (27.0-33.0); Mean Corpuscular Volume 85.2 fL (80.0-98.0); Platelet Count 106 X10*3/uL (160-400); Red Blood Count 5.14 X10*6/uL (4.60-5.80); Red Cell Distribution Width 15.6 % (11.0-16.0)
[2024-11-30 13:47] LABS: WBC ABN SCTR FOR CBC 1
[2024-11-30 14:08] LABS: Neutrophils Percent Manual 47 % (45-73)
[2024-11-30 14:13] LABS: Band Neutrophils Percent 16 % (3-5); Basophils Percent Manual 1 % (0-2); Eosinophils Percent Manual 4 % (0-4); Lymphocytes Percent Manual 26 % (20-40); Metamyelocytes Percent 1 %; Monocytes Percent Manual 5 % (2-11); Platelet Estimate NORMAL (NORMAL); Platelet Morphology Comment NORMAL; RBC Morphology NORMAL
[2024-11-30 14:18] LABS: Influenza A PCR NEGATIVE (Negative); Influenza B PCR NEGATIVE (Negative); Resp Syncy Virus RNA Qual PCR NEGATIVE (Negative); SARS COV2 PCR INHOUSE NEGATIVE (Negative)
[2024-11-30 14:19] LABS: Eosinophils Absolute Manual 0.1 X10*3/uL (0.0-0.4); Lymphocytes Absolute Manual 0.6 X10*3/uL (1.2-4.9); Monocytes Absolute Manual 0.1 X10*3/uL (0.1-1.2); Neutrophils Absolute Manual 1.4 X10*3/uL (2.0-8.3); White Blood Count 2.3 X10*3/uL (4.8-10.8)
[2024-11-30 16:02] LABS: Alanine Aminotransferase 38 U/L (0-40); Albumin Level 3.3 g/dL (3.5-5.0); Alkaline Phosphatase 250 U/L (39-117); Anion Gap 12 (12-20); Aspartate Amino Transferase 25 U/L (5-37); Bilirubin Direct 0.3 mg/dL (0.0-0.5); Bilirubin Total 0.8 mg/dL (0.0-1.0); Blood Urea Nitrogen 15 mg/dL (9-16); Calcium 8.5 mg/dL (8.4-10.2); Carbon Dioxide 23 mmol/L (22-29); Chloride 108 mmol/L (96-108); Creatinine Clr Calc Pharmacy 121.3; Estimated Glomerular Filt Rate > 60; Glucose Random 152 mg/dL (60-115); Lipase 4 U/L (8-78); Magnesium 1.6 mg/dL (1.6-2.6); Sodium 139 mmol/L (135-145)
[2024-11-30 17:57] VITALS: BP 117/53; PULSE 90; RESP 16; TEMP 36.6; O2SAT 100
[2024-11-30 19:51] VITALS: BP 117/53; PULSE 90; RESP 16; TEMP 36.6; O2SAT 100
--- NOTE | 2024-11-30 20:54 | PC.NURSE ---
pt sitting with calmly. awaiting for ambulance transport
[2024-11-30 21:07] VITALS: BP 117/53; PULSE 90; RESP 16; TEMP 36.6; O2SAT 100
== END 2024-11-30 21:10 | disposition home or self-care (01) ==
PROVIDERS: Physician Assistant; Emergency Provider Emergency Medicine Emergency Medical Services; PCP Nurse Practitioner Family
DX: R19.7 Diarrhea, unspecified (principal); I12.9 Hypertensive chronic kidney disease with stage 1 through stage 4 chronic kidney disease, or unspecified chronic kidney disease; E11.22 Type 2 diabetes mellitus with diabetic chronic kidney disease; N18.2 Chronic kidney disease, stage 2 (mild); Z79.899 Other long term (current) drug therapy; Z03.818 Encounter for observation for suspected exposure to other biological agents ruled out
CPT/HCPCS: 0241U; 80048; 80076; 83690; 83735; 85007; 85027; 96360; 99284

== ENCOUNTER 2025-01-02 06:04 | Emergency (ER) | payer MEDICARE, SELFPAY ==
[2025-01-02] VITALS (9 sets, daily range): BP systolic 62–109; BP diastolic 42–53; PULSE 96–106; RESP 15–20; TEMP 37.3–37.8; O2SAT 79–100; BMI 22.9
--- NOTE | ~2025-01-02 | CT_ITS ---
CLINICAL HISTORY: Fever, colon CA liver Mets, RUQ tender, RO biliary CT abdomen and pelvis with contrast Comparison: CT/IL/SR - CT CHEST WO IV CON - 06/07/24 09:37 EDT Findings: Heavy coronary calcium. Atelectasis in the right lung base. Mild intra and extrahepatic biliary ductal dilation. Three biliary stents are in place. The gallbladder demonstrates wall thickening with stones.. There is discontinuity of the bladder fundus highly concerning for a focal perforation. This finding was not appreciated in May of 2024 (most recent available cross-sectional imaging comparison). There is subcapsular hepatic fluid. The spleen is enlarged with an axial dimension of 15.6 cm. Pancreas, adrenal glands and kidneys are unremarkable. No hydronephrosis or radiopaque stones. No bowel obstruction, pneumoperitoneum, or pneumatosis. Evidence of partial right colectomy. Small bowel and stomach are unremarkable. Pelvic contents unremarkable. small volume free fluid in the pelvis. No pathologically enlarged lymph nodes. Nonaneurysmal aorta. Age indeterminate L1 compression fracture with a proximally 40% height loss. IMPRESSION: Gallbladder thickening with an area of wall discontinuity in the fundus highly concerning for gallbladder perforation with an associated hepatic capsular fluid collection. Three biliary stents are in place. Mild persistent intrahepatic biliary ductal dilation. Splenomegaly. Age indeterminate L1 compression fracture with a proximally 40% height loss. This document has been electronically signed by: Rubi Barrera MD on 01/02/2025 08:59:15
--- NOTE | ~2025-01-02 | XR_ITS ---
CLINICAL HISTORY: septic, on chemo 1 view chest x-ray Comparison: 08/04/2024 Findings: Portions of the exam are obscured by overlying material. There is consolidation in the right lung, possible pneumonia or pulmonary edema Normal size heart. No acute fracture. IMPRESSION: 1. Right pulmonary consolidation, differential considerations noted. This document has been electronically signed by: Juan Hamilton MD on 01/02/2025 07:25:36
--- NOTE | 2025-01-02 06:21 | ECG_ITS ---
Test Reason : WEAKNESS Blood Pressure : */* mmHG Vent. Rate : 109 BPM Atrial Rate : 109 BPM P-R Int : 132 ms QRS Dur : 80 ms QT Int : 350 ms P-R-T Axes : 50 -60 90 degrees QTcB Int : 471 ms Sinus tachycardia Left axis deviation Septal infarct (cited on or before 20-Jan-2022) Abnormal ECG When compared with ECG of 04-Aug-2024 15:46, Questionable change in initial forces of Anterior leads Referred By: Crystal Pradhan Electronically Signed By: ALVAREZ WHIPPLE MD
--- NOTE | 2025-01-02 06:24 | ED_ITS ---
HPI - General Adult General Chief complaint: Weakness Stated complaint: weakness, BP L, BGL H, no appetite, dehydrated Time Seen by Provider: 01/02/25 06:23 Source: patient and EMS Mode of arrival: EMS Limitations: no limitations History of Present Illness ED Provider: Dr. Crystal Pradhan HPI narrative: Patient comes to the emergency room complaining of 3 days of feeling weak, [id number]. Patient states that he does not have any pain, no URI or UTI symptoms. Patient states that he has does not feel right. Patient coming from an assisted living facility. Patient states that he has history of colon cancer with metastases to liver. Patient is currently being treated with IV chemotherapy every to Wednesdays here at [facility], his oncologist is Dr. Tolbert. According to EMS, the patient's blood pressure was in the low 70s. Oxygen saturation was unable to be determined by EMS because patient has hands are extremely cold. Prophylactically, EMS started the patient on oxygen. Patient denies chest pain or shortness of breath, no URI symptoms, no UTI symptoms. Patient denies any abdominal pain, denies blood or black stool. Patient states that he feels a bit nauseous but has not vomited. Related Data Home Medications ?Medication ?Instructions ?Recorded ?Confirmed blood sugar diagnostic #10 ea 07/28/20 11/10/24 multivitamin 1 tab PO DAILY 10/29/23 11/10/24 lisinopril 20 mg tablet 20 mg PO DAILY 07/12/24 11/10/24 cyanocobalamin (vitamin B-12) 500 1,000 mcg PO DAILY 08/30/24 11/10/24 mcg tablet (Vitamin B-12) metformin 1,000 mg tablet 1,000 mg PO BID 08/30/24 11/10/24 pramipexole 0.5 mg tablet 0.5 mg PO BEDTIME 08/30/24 11/10/24 furosemide 40 mg tablet 40 mg PO DAILY 10/05/24 11/10/24 insulin lispro 100 unit/mL 1 sliding scale dose subcut 10/05/24 11/10/24 subcutaneous pen USEASDIRECTD Previous Rx's ?Medication ?Instructions ?Recorded blood-glucose sensor (FreeStyle #2 ea 02/27/24 Justina 3 Sensor device) blood-glucose,crop and soil scientist,cont #1 ea 02/27/24 (FreeStyle Justina 3 [place]) aspirin 81 mg tablet,delayed 81 mg PO DAILY #90 tabs 10/21/24 release atorvastatin 40 mg tablet 40 mg PO DAILY 90 days #90 tabs 10/21/24 pantoprazole 40 mg tablet,delayed 40 mg PO BID #180 tabs 10/21/24 release insulin glargine 100 unit/mL (3 33 unit (0.33 mL) subcut DAILY #30 10/23/24 mL) subcutaneous pen (Lantus mL Solostar U-100 Insulin) bethanechol chloride 50 mg tablet 50 mg PO BID 30 days #60 tabs 11/24/24 empagliflozin 25 mg tablet 25 mg PO DAILY #90 tabs 11/26/24 (Jardiance) diphenoxylate-atropine 2.5 1 tab PO TID PRN Diarrhea #30 tabs 12/02/24 mg-0.025 mg tablet pen needle, diabetic 31 gauge x #300 ea 12/20/2401/28 tamsulosin 0.4 mg capsule 0.4 mg PO BEDTIME #90 caps 12/20/24 potassium chloride 20 mEq/15 mL 20 meq (15 mL) PO DAILY #450 mL 01/04/25 oral liquid Allergies Allergy/AdvReac Type Severity Reaction Status Date / Time No Known Allergies Allergy Verified 01/02/25 06:40 [No Known Allergies*] Review of Systems 2 Review of Systems: Constitutional : No Weight loss, No Fever, No Chills, No Night Sweats, complaining of fatigue and generalized malaise ENT/Mouth : No Hearing loss, No Ear Pain, No Nasal Congestion, No Sinus Pain, No Hoarseness, No sore throat, No Rhinorrhea, No Swallowing Difficulty Eyes: No Eye Pain, No Swelling, No Redness, No Foreign Body, No Discharge, No Vision Changes Cardiovascular : No Chest Pain, No SOB, No Dyspnea on Exertion, No Orthopnea, No Edema, No Palpitations Respiratory : No Cough, No Sputum, No Wheezing, No Smoke Exposure, No Dyspnea Gastrointestinal : No Nausea, No Vomiting, No Diarrhea, No Constipation, No abdominal Pain, No Hematochezia, No Melena Genitourinary : no irregular bleeding, No Dysuria, No Urinary Frequency, No Hematuria, No Urinary Incontinence, No Urgency, No Flank Pain, No Urinary Flow Changes, No Hesitancy Musculoskeletal : No joint pain, No Myalgias, No Joint Swelling Skin : No Skin Lesions, No rash Neuro : No Weakness, No Numbness, No Paresthesias, No Loss of Consciousness, No Dizziness, No Headache Psych : No Anxiety/Panic, No Depression, No SI/HI/AH/VH, No Social Issues, Heme/Lymph: No Bruising, No Bleeding,No Lymphadenopathy Endocrine : No Polyuria, No Polydipsia, No Temperature Intolerance [facility] Past Medical History Medical History Sepsis History of chemotherapy Stroke Ulnar neuropathy at elbow Sleep apnea Acute embolic stroke Xerosis cutis CKD (chronic kidney disease) stage 2, GFR 60-89 ml/min Persistent proteinuria Hypertensive nephrosclerosis Elevated alkaline phosphatase level Cataract Fuchs' corneal dystrophy Colon cancer RLS (restless legs syndrome) Obesity (BMI 30.0-34.9) Dyslipidemia Type 2 diabetes mellitus with diabetic polyneuropathy Hypertension Neuropathy Diabetes mellitus Erectile dysfunction Surgical History History of nasal cauterization History of esophagogastroduodenoscopy (EGD) Hx of left cataract extraction Hx of cornea transplant History of colonoscopy (~03/15/19) History of colon resection (~04/20/19) Family History Family History Mother History of pancreatic cancer Father No problems noted. Brother Diabetes Maternal Grandmother Diabetes Social History Social History Household Members: None Housing: Condominium Housing Other:: REHAB Are you a primary career technology teacher to a significant other at home: No Do you presently have visiting nurse or other home services: No Alcohol intake: never Comment: currently in rehab and bedbound Patient Tobacco Use Status: Never used Tobacco Smoked in Last 30 Days: No e-Cigarette/Vaping Use: Never Used Second Hand Smoke Exposure: No Use of substances other than those prescribed or required for medical reasons: No Advance Directives: Yes Advance Directives on File: Yes Advance Directives Date on File: 07/13/24 service: No Current occupational status: retired Cognitive needs: No Hearing needs: No Vision needs: No Physical Exam ED Vital Signs: Vital Signs - 24 hr 01/02/25 06:35 01/02/25 06:40 01/02/25 06:54 Temperature 100.0 F 100.1 F 100.0 F Pulse Rate 106 H 105 H 101 H Respiratory Rate 20 16 16 Blood Pressure 62/42 L 74/44 L 92/51 L Pulse Oximetry 97 98 99 Oxygen Delivery Method Room Air Room Air Room Air 01/02/25 07:02 01/02/25 07:22 01/02/25 08:41 Temperature 99.7 F 99.1 F 99.1 F Pulse Rate 97 98 96 Respiratory Rate 15 18 18 Blood Pressure 93/49 L 96/48 L 102/53 L Pulse Oximetry 96 95 96 Oxygen Delivery Method Room Air Room Air Room Air 01/02/25 09:09 Temperature Pulse Rate 98 Respiratory Rate 18 Blood Pressure 109/53 L Pulse Oximetry 97 Oxygen Delivery Method Room Air BMI result Body Mass Index 22.9 Const Other: Appearance: Alert. Oriented X3. Seems weak, sick, unwell. Eyes: Pupils equal, round and reactive to light. ENT: Pharynx normal. Neck: Normal inspection. Neck supple. No lymph nodes noted. No crepitus CVS: Normal heart rate and rhythm. Pulses normal. Normal S1 and S2, systolic blood pressure in the mid 60s Respiratory: No respiratory distress. Breath sounds normal. No Wheezing. No rales Abdomen: Soft and nontender. No rigidity. No distention. Skin: Skin very cool to touch and dry. Diffusely pale color. Normal skin turgor. Extremities: No lower extremity edema. No Lacerations. No Rash Neuro: Oriented X 3. No motor deficit. No sensory deficit. Moving all extremities. No slurred speech. CN 2 through 12 grossly intact Psych: calm, cooperative, normal affect Course Course Course Narrative: On arrival, patient's blood pressure in the mid 60s. Patient being started on IV fluids 2.5 L, cefepime, albumin, Zofran All of patient's labs are pending at this time and imaging. Sepsis alert was called at 06:36am Sign out given to my colleague Dr. Velez Medications Administered Discontinued Medications Generic Name Dose Route Start Last Admin Trade Name Freq PRN Reason Stop Dose Admin Sodium Chloride 2,500 mls @ 999 mls/hr 01/02/25 06:18 01/02/25 08:41 Ns IVCONT 01/02/25 08:48 Infused .Q2H31M ONE Infusion Cefepime HCl 2 gm in 50 mls @ 100 mls/hr 01/02/25 06:18 01/02/25 07:22 Maxipime IV 01/02/25 06:47 Infused ONCE ONE Infusion Albumin Human 50 mls @ 100 mls/hr 01/02/25 06:30 01/02/25 07:22 Kedbumin 25 % IV 01/02/25 07:29 Infused Q30M RADHA Infusion Lactated Ringer's 1,000 mls @ 250 mls/hr 01/02/25 10:25 01/02/25 10:39 Lr IV 01/02/25 14:24 250 mls/hr .Q4H STA Administration Iohexol 100 ml 01/02/25 07:49 01/02/25 07:50 Iohexol 350 Mg/Ml 100 Ml Infus..Btl IV 01/02/25 07:50 85 ml ONCE ONE Administration Ondansetron HCl 4 mg 01/02/25 06:27 01/02/25 06:39 Ondansetron Hcl 4 Mg/2 Ml Vial IVPUSH 01/02/25 06:28 4 mg ONCE ONE Administration Medical Decision Making Medical Decision Making MDM Narrative: 07:00 I assumed care of this patient from my colleague, Dr. Crystal Pradhan. 69-year-old male sepsis, colon cancer, cholangiocarcinoma, stroke, chronic kidney disease, hyperlipidemia, diabetes, hypertension, who presents emergency department for evaluation of loss of appetite associated with nausea x2 days. He was able to drink small amounts of fluid over the last 2 days. He denied abdominal pain. He noted rhinorrhea but had no other complaints. He denied sore throat cough, chest pain or shortness of breath. He denied diarrhea, change in his bowel movements, frequency, urgency or dysuria.. Patient has a complicated past medical history in the following was obtained from Dr. Tolbert's oncology note on 12/22/2024: Colon cancer (03/22/2019), cholangiocarcinoma (04/2023), E coli sepsis possibly secondary to biliary stent, 08/20/2024 ERCP for stent removal/replacement, developed liver abscesses with 1 abscess requiring IR drainage. He was readmitted to [facility] for recurrent liver abscesses and treated with IV and oral antibiotics. Underwent CT chest/abdomen pelvis on 06/07/2024 new metastasis in the liver segment 3 measuring up to 5.3 cm, central necrosis. Worsening biliary dilatation secondary to enlarging metastasis in the bifurcation of main hepatic ducts. Patient is getting chemotherapy at [facility]. Patient's vital signs revealed hypotension with a blood pressure of 62/42, tachycardia with a heart rate of 106, fever of 100.0 degrees F rectally. Patient had very dry mucous membranes with a ketotic odor to his breath. Patient had moderate right upper quadrant tenderness with a negative Jarrell sign, mild to moderate diffuse abdominal tenderness. Otherwise exam was unremarkable. 07:16 Differential diagnosis: ?Includes but is not limited to viral syndrome, COVID- 19, RSV, influenza, sepsis, recurrent liver abscesses, biliary stent infections, urinary tract infection, pneumonia, anemia, electrolyte abnormalities Course: 07:16 Patient was initially evaluated by Dr. Pradhan who activated the sepsis protocol at 06:36 hours. Patient was treated with normal saline IV x1 L, albumin 25 g x2, cefepime 2 g IV, Zofran 4 mg IV. I also ordered a CT scan of the abdomen pelvis with IV contrast to evaluate the patient for possible liver sources as the cause of his sepsis. 08:45 My independent interpretation patient's laboratory evaluation is as follows: WBC was elevated 11,400 with 14% bands. Sodium, chloride and bicarb were low 132, 94 and 16. Potassium was high 5.5. BUN and creatinine were elevated 281.44 compared to a BUN creatinine of 17 and 0.6 on 12/22/2024-this is most likely secondary to volume depletion dehydration. Lactic acid was elevated 3.2. Patient's AST, ALT and alk-phos were elevated 61, 41 and 395. Unchanged compared to previous values on 12/22/2024. TSH was elevated 5.04 with a normal free T4. High sensitive troponin I was detectable but not elevated at 13. Chest x-ray radiology reading he was consistent with a right lower lobe consolidation, it is possible that this could be the source of the patient was infection. Patient has completed his fluid bolus and his albumin infusions. Patient had repeat vital signs: Heart rate 97, O2 saturation 97% on room air, temperature 99.3 by rectal temperature probe. BP 109/53. 09:[address] scan of the abdomen pelvis with IV contrast was concerning for possible gallbladder perforation ( see reading below). This would explain the patient's right upper quad tenderness, fever and hypotension. I did discuss the patient's presentation over tiger text with our covering surgeon, Dr. Hernandez. His opinion is that the patient will require a higher level than can be provided at [facility]. Therefore her requested that the patient be transferred to a tertiary care center. 10:17 I did discuss the patient's presentation with the covering general surgeon at [facility], Dr. Collazo and she accepted the patient as an ED to ED transfer to [facility]. Patient will be sent by by ALS ambulance. Admission/Observation Consideration of admission/observation: Escalation of care including admission/observation considered (Yes) Consult Healthcare Provider Management of the patient was discussed with: Commercial Account Officer (General surgeon on- call, Dr. Hernandez) Lab Data MDM Lab Attestation statement: I reviewed the patient's lab results. 01/02/25 06:39 01/02/25 06:39 Labs: Lab Results 01/02/25 01/02/25 01/02/25 Range/Units 06:39 06:44 09:18 WBC 11.4 H (4.8-10.8) X10*3/uL RBC 5.57 D (4.60-5.80) X10*6/uL Hgb 16.3 D (14.0-18.0) g/dl Hct 47.9 D (42.0-52.0) % MCV 86.0 (80.0-98.0) fL MCH 29.3 (27.0-33.0) pg MCHC 34.0 (31.0-36.0) g/dl RDW 18.2 H (11.0-16.0) % Plt Count 169 (160-400) X10*3/uL MPV 11.0 (9.4-12.4) fL Immature Gran % (Auto) Cancelled Neut % (Auto) Cancelled Lymph % (Auto) Cancelled Door % (Auto) Cancelled Eos % (Auto) Cancelled Baso % (Auto) Cancelled Lymph # (Auto) Cancelled Door # (Auto) Cancelled Eos # (Auto) Cancelled Baso # (Auto) Cancelled Abs Immat Gran (auto) Cancelled Absolute Neuts (auto) Cancelled Absolute Nucleated RBC 0.000 (0.0-0.012) X10*3/uL Nucleated RBC % (auto) 0.0 (0.0-0.2) /100WBC Neutrophils % (Manual) 78 H (45-73) % Band Neutrophils % 14 H (3-5) % Lymphocytes % (Manual) 7 L (20-40) % Monocytes % (Manual) 1 L (2-11) % Abs Neuts (Manual) 10.5 H (2.0-8.3) X10*3/uL Lymphocytes # (Manual) 0.8 L (1.2-4.9) X10*3/uL Monocytes # (Manual) 0.1 (0.1-1.2) X10*3/uL Toxic Vacuolation PRESENT Platelet Estimate NORMAL (NORMAL) Large Platelets PRESENT Plt Morphology Comment NOTED RBC Morphology NOTED [place] Cells 2+ (3-5) /OIF Hold Blue Top SEE NOTE Sodium 132 L (135-145) mmol/L Potassium 5.5 H D (3.3-5.1) mmol/L Chloride 94 L (96-108) mmol/L Carbon Dioxide 16 L (22-29) mmol/L Anion Gap 28 H (12-20) BUN 28 H (9-16) mg/dL Creatinine 1.44 H (0.5-1.4) mg/dL Estim Creat Clear Calc 43.9 Estimated GFR 48 POC Glucose (60-115) mg/dL Random Glucose 252 H (60-115) mg/dL Lactic Acid 3.2 H* (0.5-2.0) mmol/L Lactic Acid F/U @ 2Hr 1.9 (0.5-2.0) mmol/L Calcium 10.1 D (8.4-10.2) mg/dL Magnesium 1.9 (1.6-2.6) mg/dL Total Bilirubin 1.4 H (0.0-1.0) mg/dL Direct Bilirubin 0.5 0.4 (0.0-0.5) mg/dL AST 61 H (5-37) U/L ALT 41 H (0-40) U/L Alkaline Phosphatase 395 H (39-117) U/L Lactate Dehydrogenase 478 H (118-273) U/L Troponin I High Sens 13.0 (<3.5-35.0) ng/L B-Natriuretic Peptide 171 H (<100) pg/mL Total Protein 8.0 (6.5-8.0) g/dL Albumin 3.8 (3.5-5.0) g/dL Lipase 5 L (8-78) U/L TSH 5.04 H (0.32-4.0) uIU/mL Free T4 0.97 (0.71-1.85) ng/dL Urine Color Urine Appearance Urine pH (5.0-9.0) Ur Specific [place] (1.005-1.025) Urine Protein (Neg-Trace) mg/dL Urine Glucose (UA) (Negative) mg/dL Urine Ketones (Negative) mg/dL Urine Blood (Negative) Urine Nitrite (Negative) Ur Leukocyte Esterase (Negative) Urine RBC (0-2) /HPF Urine WBC (0-5) /HPF Ur Squamous Epith Cells (0-2) /HPF Urine Bacteria (None Seen) Hyaline Casts (0-2) /LPF Influenza Type A (PCR) NEGATIVE (Negative) Influenza Type B (PCR) NEGATIVE (Negative) RSV RNA Qual (PCR) NEGATIVE (Negative) SARS-CoV-2 RNA (RT-PCR) NEGATIVE (Negative) 01/02/25 01/02/25 Range/Units 09:23 10:42 WBC (4.8-10.8) X10*3/uL RBC (4.60-5.80) X10*6/uL Hgb (14.0-18.0) g/dl Hct (42.0-52.0) % MCV (80.0-98.0) fL MCH (27.0-33.0) pg MCHC (31.0-36.0) g/dl RDW (11.0-16.0) % Plt Count (160-400) X10*3/uL MPV (9.4-12.4) fL Immature Gran % (Auto) Neut % (Auto) Lymph % (Auto) Door % (Auto) Eos % (Auto) Baso % (Auto) Lymph # (Auto) Door # (Auto) Eos # (Auto) Baso # (Auto) Abs Immat Gran (auto) Absolute Neuts (auto) Absolute Nucleated RBC (0.0-0.012) X10*3/uL Nucleated RBC % (auto) (0.0-0.2) /100WBC Neutrophils % (Manual) (45-73) % Band Neutrophils % (3-5) % Lymphocytes % (Manual) (20-40) % Monocytes % (Manual) (2-11) % Abs Neuts (Manual) (2.0-8.3) X10*3/uL Lymphocytes # (Manual) (1.2-4.9) X10*3/uL Monocytes # (Manual) (0.1-1.2) X10*3/uL Toxic Vacuolation Platelet Estimate (NORMAL) Large Platelets Plt Morphology Comment RBC Morphology [place] Cells /OIF Hold Blue Top Sodium (135-145) mmol/L Potassium (3.3-5.1) mmol/L Chloride (96-108) mmol/L Carbon Dioxide (22-29) mmol/L Anion Gap (12-20) BUN (9-16) mg/dL Creatinine (0.5-1.4) mg/dL Estim Creat Clear Calc Estimated GFR POC Glucose 186 H (60-115) mg/dL Random Glucose (60-115) mg/dL Lactic Acid (0.5-2.0) mmol/L Lactic Acid F/U @ 2Hr (0.5-2.0) mmol/L Calcium (8.4-10.2) mg/dL Magnesium (1.6-2.6) mg/dL Total Bilirubin (0.0-1.0) mg/dL Direct Bilirubin (0.0-0.5) mg/dL AST (5-37) U/L ALT (0-40) U/L Alkaline Phosphatase (39-117) U/L Lactate Dehydrogenase (118-273) U/L Troponin I High Sens (<3.5-35.0) ng/L B-Natriuretic Peptide (<100) pg/mL Total Protein (6.5-8.0) g/dL Albumin (3.5-5.0) g/dL Lipase (8-78) U/L TSH (0.32-4.0) uIU/mL Free T4 (0.71-1.85) ng/dL Urine Color Yellow Urine Appearance Clear Urine pH 5.5 (5.0-9.0) Ur Specific [place] >= 1.030 H (1.005-1.025) Urine Protein Trace (Neg-Trace) mg/dL Urine Glucose (UA) >=1000 H (Negative) mg/dL Urine Ketones 15 (Negative) mg/dL Urine Blood Negative (Negative) Urine Nitrite Negative (Negative) Ur Leukocyte Esterase Negative (Negative) Urine RBC 0-2 (0-2) /HPF Urine WBC 0-5 (0-5) /HPF Ur Squamous Epith Cells 0-2 (0-2) /HPF Urine Bacteria None Seen (None Seen) Hyaline Casts 3-5 (0-2) /LPF Influenza Type A (PCR) (Negative) Influenza Type B (PCR) (Negative) RSV RNA Qual (PCR) (Negative) SARS-CoV-2 RNA (RT-PCR) (Negative) Independent Interpretation I performed an independent interpretation of an: EKG and Plain X-Ray Interpretation: My independent interpretation of the patient's one-view chest x-ray is as follows: Elevated right hemidiaphragm seen on the previous study (01/02/2025) increased interstitial markings at the right base compared to the left not seen on the previous study. My independent interpretation of the patient's 12 EKG done on 01/02/2025 at 06:35 hours is as follows: Sinus tachycardia with a rate of 109, normal NE interval, QRS duration QTC interval, no ST segment elevation, no ST segment depression, no PACs, no PVCs, Q-wave in lead 3 and AVF, poor R-wave progression V1 and V2, flattened T-wave in lead 1 with a an inverted T-wave in aVL, no other significant T-wave abnormalities. Compared to an EKG dated 08/04/2024 at 15:46 hours abnormalities in 1 in aVL are old, poor Q-waves in 3, AVF and poor R-wave progression were present on the previous EKG. Radiology Impression Discussion of test interpretation with radiology: I have reviewed the radiologist's reading. Radiologist Impression: 1 view chest x-ray Comparison: 08/04/2024 Findings: Portions of the exam are obscured by overlying material. There is consolidation in the right lung, possible pneumonia or pulmonary edema Normal size heart. No acute fracture. IMPRESSION: 1. Right pulmonary consolidation, differential considerations noted. This document has been electronically signed by: Juan Hamilton MD on 01/02/2025 07:25:36 CT abdomen and pelvis with contrast Comparison: CT/NE/SR - CT CHEST WO IV CON - 06/07/24 09:37 EDT Findings: Heavy coronary calcium. Atelectasis in the right lung base. Mild intra and extrahepatic biliary ductal dilation. Three biliary stents are in place. The gallbladder demonstrates wall thickening with stones.. There is discontinuity of the bladder fundus highly concerning for a focal perforation. This finding was not appreciated in May of 2024 (most recent available cross-sectional imaging comparison). There is subcapsular hepatic fluid. The spleen is enlarged with an axial dimension of 15.6 cm. Pancreas, adrenal glands and kidneys are unremarkable. No hydronephrosis or radiopaque stones. No bowel obstruction, pneumoperitoneum, or pneumatosis. Evidence of partial right colectomy. Small bowel and stomach are unremarkable. Pelvic contents unremarkable. small volume free fluid in the pelvis. No pathologically enlarged lymph nodes. Nonaneurysmal aorta. Age indeterminate L1 compression fracture with a proximally 40% height loss. IMPRESSION: Gallbladder thickening with an area of wall discontinuity in the fundus highly concerning for gallbladder perforation with an associated hepatic capsular fluid collection. Three biliary stents are in place. Mild persistent intrahepatic biliary ductal dilation. Splenomegaly. Age indeterminate L1 compression fracture with a proximally 40% height loss. This document has been electronically signed by: Rubi Barrera MD on 01/02/2025 08:59:15 External Record Review External record reviewed: Office record (Dr. oTlbert's office note) Chronic Conditions Patient?s care impacted by: Diabetes and Other ( colon cancer with cholangiocarcinoma) Critical Care Time Critical Care Time Critical Care Time: Yes Total Critical Care Time: 120 Attestation: Critical Care: The patient was critically ill with a high probability of imminent or life threatening deterioration. I spent greater than 30 minutes of discontinuous time evaluating the patient,delivering critical care at the bedside, discussing and evaluating pertinent data with consultants. Critical care time does not include time spent performing separately billable procedures or teaching. Total time spent performing critical care was 120 minutes. Discharge Plan Discharge Clinical Impression: Perforated gallbladder, Sepsis, Cancer, metastatic to liver, Cholangiocarcinoma Patient Disposition: [facility] Transfer Details: ED to ED transfer to [facility]. Accepting general surgeon, Dr. Collazo Prescriptions: No Action pantoprazole 40 mg tablet,delayed release (DR/EC) 40 mg PO BID Qty: 180 0RF atorvastatin 40 mg tablet 40 mg PO DAILY 90 Days Qty: 90 1RF aspirin 81 mg tablet,delayed release (DR/EC) 81 mg PO DAILY Qty: 90 0RF insulin glargine [Lantus Solostar U-100 Insulin] 100 unit/mL (3 mL) insulin pen 33 unit subcut DAILY Qty: 30 0RF Jardiance 25 mg tablet 25 mg PO DAILY Qty: 90 0RF tamsulosin 0.4 mg capsule 0.4 mg PO BEDTIME Qty: 90 1RF (DME) pen needle, diabetic 31 gauge x 5/16 needle See Rx Instructions .ROUTE .MEDSUPPLY Qty: 300 2RF Rx Instructions: Use to inject insulin 4 times per day potassium chloride 20 mEq/15 mL liquid 20 meq PO DAILY Qty: 450 0RF multivitamin Tablet 1 tab PO DAILY diphenoxylate-atropine 2.5-0.025 mg Tablet 1 tab PO TID PRN (Reason: Diarrhea) Qty: 30 0RF lisinopril 20 mg tablet 20 mg PO DAILY pramipexole 0.5 mg tablet 0.5 mg PO BEDTIME cyanocobalamin (vitamin B-12) [Vitamin B-12] 500 mcg Tablet 1,000 mcg PO DAILY metformin 1,000 mg tablet 1,000 mg PO BID (DME) blood sugar diagnostic Strip See Rx Instructions .ROUTE TID Qty: 10 Rx Instructions: As directed (DME) FreeStyle Justina 3 Sensor Device See Rx Instructions .ROUTE .MEDSUPPLY Qty: 2 11RF Rx Instructions: Apply every 14 days As directed (DME) FreeStyle Justina 3 [place] Misc See Rx Instructions .ROUTE .MEDSUPPLY Qty: 1 0RF Rx Instructions: As directed furosemide 40 mg tablet 40 mg PO DAILY insulin lispro 100 unit/mL insulin pen 1 sliding scale dose subcut USEASDIRECTD bethanechol chloride 50 mg tablet 50 mg PO BID 30 Days Qty: 60 2RF Interventions: Acute Care Transfer Worksheet (ED) Last Done: 01/02/25 11:13 Discharge Date/Time: 01/02/25 11:15 Print Language: Faroese
[2025-01-02] MEDS: ondansetron HCL 4 MG/2 ML VIAL IVPUSH (06:39)
[2025-01-02] MEDS: cefEPime HCl/D5W 2 GM/50 ML PIGGYBACK IV (06:40)
[2025-01-02 06:43] LABS: Venous Blood Gas Refer to POC result
[2025-01-02 06:45] LABS: Hematocrit 47.9 % (42.0-52.0); Hemoglobin 16.3 g/dl (14.0-18.0); Mean Corpuscular Hemoglobin 29.3 pg (27.0-33.0); Platelet Count 169 X10*3/uL (160-400); Red Blood Count 5.57 X10*6/uL (4.60-5.80); Red Cell Distribution Width 18.2 % (11.0-16.0); White Blood Count 11.4 X10*3/uL (4.8-10.8)
[2025-01-02] MEDS: Albumin Human 25 % 50 ML 100 ML IV ×2 (06:46→06:48)
[2025-01-02] MEDS: 0.9 % Sodium Chloride 2,500 ML 999 ML IVCONT (06:47)
--- NOTE | 2025-01-02 06:58 | MHC.EDTECH ---
Patient BIBA,changed into hospital attire, vitals taken BP is low 64/40, RN and Md at bedside, EKG taken per order and signed by provider, placed pt on the ekg monitor, continuous rectal probe placed temp is 100.1. RN aware, report give to waste transportation techniciandavid Rhodes
--- NOTE | 2025-01-02 07:02 | PC.NURSE ---
Pt presented with a life alert bracelet to the right wrist. RN removed patient's life alert bracelet and placed it INSIDE one of his socks which was then placed in his belongings bag. the pt remains awake, alert, oriented x4 and without acute distress. Pt offers no complaints at [facility] however did endorse RUQ tenderness upon palpation. Hypotension is steadily improving with infusion of IVF, BPs cycling every 15 mins. Report provided to and care assumed by Gabby BOLANOS
[2025-01-02 07:05] LABS: B Type Natriuretic Peptide 171 pg/mL (<100)
[2025-01-02 07:07] LABS: Lactic Acid 3.2 mmol/L (0.5-2.0); Neutrophils Percent Manual 78 % (45-73)
[2025-01-02 07:10] LABS: Lymphocytes Absolute Manual 0.8 X10*3/uL (1.2-4.9); Lymphocytes Percent Manual 7 % (20-40); Monocytes Absolute Manual 0.1 X10*3/uL (0.1-1.2); Monocytes Percent Manual 1 % (2-11); Neutrophils Absolute Manual 10.5 X10*3/uL (2.0-8.3)
[2025-01-02 07:13] LABS: Band Neutrophils Percent 14 % (3-5)
[2025-01-02 07:14] LABS: Large Platelet PRESENT; Platelet Estimate NORMAL (NORMAL); RBC Morphology NOTED
[2025-01-02 07:15] LABS: Burr Cells 2+ (3-5) /OIF; Platelet Morphology Comment NOTED; Toxic Vacuolation PRESENT
[2025-01-02 07:19] LABS: Alanine Aminotransferase 41 U/L (0-40); Albumin Level 3.8 g/dL (3.5-5.0); Alkaline Phosphatase 395 U/L (39-117); Anion Gap 28 (12-20); Aspartate Amino Transferase 61 U/L (5-37); Bilirubin Direct 0.5 mg/dL (0.0-0.5); Bilirubin Total 1.4 mg/dL (0.0-1.0); Blood Urea Nitrogen 28 mg/dL (9-16); Calcium 10.1 mg/dL (8.4-10.2); Carbon Dioxide 16 mmol/L (22-29); Chloride 94 mmol/L (96-108); Creatinine Clr Calc Pharmacy 43.9; Estimated Glomerular Filt Rate 48; Glucose Random 252 mg/dL (60-115); Magnesium 1.9 mg/dL (1.6-2.6); Potassium 5.5 mmol/L (3.3-5.1); Sodium 132 mmol/L (135-145)
[2025-01-02 07:23] LABS: Influenza A PCR NEGATIVE (Negative); Influenza B PCR NEGATIVE (Negative); Resp Syncy Virus RNA Qual PCR NEGATIVE (Negative); SARS COV2 PCR INHOUSE NEGATIVE (Negative)
--- NOTE | 2025-01-02 07:25 | PC.NURSE ---
Assumed care of patient at 0700. 2 bags Albumin hung by previous shift, both bags per MD order infused at 133mls/hr per sepsis protocol. Rectal probe placed along with condom cath. Patient alert and oriented, denies pain or discomfort at this time. Sepsis fluids infusing per order with improvement in BP
[2025-01-02 07:26] LABS: TSH reflex Free T4 5.04 uIU/mL (0.32-4.0)
[2025-01-02] MEDS: iohexoL 350 MG/ML 100 ML INFUS..BTL IV (07:50)
[2025-01-02 08:14] LABS: Free T4 (Free Thyroxine) 0.97 ng/dL (0.71-1.85)
[2025-01-02 08:44] LABS: Reflex Lactate? Lactic Acid Added
[2025-01-02 09:14] LABS: Bilirubin Direct 0.4 mg/dL (0.0-0.5); Lactate Dehydrogenase 478 U/L (118-273); Lipase 5 U/L (8-78)
[2025-01-02 09:28] LABS: Glucose, Whole Blood 186 mg/dL (60-115)
[2025-01-02 09:39] LABS: ~Lactic Acid-LAB USE ONLY 1.9 mmol/L (0.5-2.0)
[2025-01-02] MEDS: Lactated Ringers 1,000 ML 250 ML IV (10:39)
--- NOTE | 2025-01-02 10:45 | PC.NURSE ---
Per provider order 16f 10cc melo cath placed with immediate output of of 1000mls of charli colored urine
[2025-01-02 10:49] LABS: Appearance Urine Clear; Color Urine Yellow; Glucose Urine UA >=1000 mg/dL (Negative); Leukocyte Esterase Urine Negative (Negative); Nitrite Urine Negative (Negative); PH 5.5 (5.0-9.0); Specific Gravity - Urine >= 1.030 (1.005-1.025); UMIC TRIGGER UACC YES; Urine Blood Negative (Negative); Urine Ketones 15 mg/dL (Negative); Urine Protein Trace mg/dL (Neg-Trace)
[2025-01-02 10:54] LABS: Bacteria Urine None Seen (None Seen); RBC Urine 0-2 /HPF (0-2); Squamous Epithelial Cell Urine 0-2 /HPF (0-2); WBC Urine 0-5 /HPF (0-5)
--- NOTE | 2025-01-02 11:00 | PC.NURSE ---
Multiple attempts to give report to [facility] ED, per staff answering phone a pediatric trauma just came in and RN will call back for report when they have time. Report given to EMS
--- NOTE | 2025-01-02 11:13 | PC.NURSE ---
Report given to Tabitha BOLANOS at [facility]
== END 2025-01-02 11:15 | disposition short-term general hospital (02) ==
PROVIDERS: Emergency Medicine; Emergency Provider Emergency Medicine Emergency Medical Services; PCP Nurse Practitioner Family
DX: K82.2 Perforation of gallbladder (principal); A41.9 Sepsis, unspecified organism; R53.1 Weakness; R62.7 Adult failure to thrive; C79.89 Secondary malignant neoplasm of other specified sites; Z68.22 Body mass index [BMI] 22.0-22.9, adult; Z03.818 Encounter for observation for suspected exposure to other biological agents ruled out
CPT/HCPCS: 0241U; 36415; 71045; 74177; 80048; 80076; 81001; 82248; 82947; 83605; 83615; 83690; 83735; 83880; 84439; 84443; 84484; 85007; 85027; 87040; 93005; 96361; 96365; 96375; 99285; J0692; J2405; J7120; P9047; Q9967

== ENCOUNTER → 2025-01-02 06:21 | Outpatient (BNV) | payer MEDICARE, SELFPAY | PROVIDERS: Emergency Provider Emergency Medicine Emergency Medical Services; PCP Nurse Practitioner Family; Visit Provider Internal Medicine Cardiovascular Disease | DX: I25.2 Old myocardial infarction (principal); R00.0 Tachycardia, unspecified | CPT/HCPCS: 93010 ==

== ENCOUNTER → 2025-01-02 06:22 | Outpatient (BNV) | payer MEDICARE, SELFPAY | PROVIDERS: Emergency Provider Emergency Medicine Emergency Medical Services; Visit Provider Specialist | DX: J18.1 Lobar pneumonia, unspecified organism (principal); R10.9 Unspecified abdominal pain; K76.89 Other specified diseases of liver | CPT/HCPCS: 71045; 74177 ==